=== PATIENT | female | born 1960 | race Caucasian/White ===

== ENCOUNTER 2017-06-15 06:21 | Day surgery (SDC) | payer OTHER ==
[2017-06-14 18:46] VITALS: BMI 20.2
[2017-06-15] MEDS ORDERED: MIDAZOLAM HCL 2 MG/2 ML SINGLE DOSE VIAL ONE ×2 (07:44)
[2017-06-15] MEDS ORDERED: LEVOFLOXACIN 500 MG PREMIX BAG IVPB ONE (07:50)
[2017-06-15] MEDS ORDERED: oxyCODONE HCL 5 MG TABLET PO PRN (08:17)
--- NOTE | 2017-06-15 08:17 | OP ---
Operative Note - Note: Operative Date: 06/15/17 Pre-Operative Diagnosis: rt kidney stone Operation: ESWL Post-Operative Diagnosis: Same as Pre-op Surgeon: Hemant Finnegan Anesthesia: General Estimated Blood Loss (mls): 0 Operative Report Dictated: Yes
[2017-06-15] MEDS ORDERED: ONDANSETRON 4 MG/2 ML VIAL IVPUSH PRN (08:22)
[2017-06-15] MEDS ORDERED: LACTATED RINGERS SOLUTION 1,000 ML IV SCH (08:30)
[2017-06-15] MEDS ORDERED: ELECTROLYTE-148 SOLN 1,000 ML IV SCH (08:30)
[2017-06-15 11:21] VITALS: BP 119/62; PULSE 96; TEMP 97.6
--- NOTE | 2017-06-15 16:49 | OP ---
DATE OF OPERATION: 06/15/2017 PREOPERATIVE DIAGNOSIS: A 1-cm right kidney stone. POSTOPERATIVE DIAGNOSIS: A 1-cm right kidney stone. PROCEDURE: Extracorporeal shock wave lithotripsy. SURGEON: Jim Rodarte MD INDICATION: Patient is a 56-year-old female noted to have a 1-cm right kidney stone, who after reviewing treatment options, elected to undergo ESWL. Risks, benefits, and alternatives were discussed including inability to break up stone, potential need for additional procedures, potential to obstruction requiring additional procedures, potential injury to adjacent organs. DESCRIPTION OF PROCEDURE: After informed consent was obtained, patient taken to the OR, placed supine on the table. After cardiac monitoring had been administered, ultrasound and fluoroscopy were used to locate the stone in the mid-pole of the kidney. Next, 2500 shocks were delivered under active ultrasound guidance so that the stone was in the crosshairs during the whole shocking period. There appeared to be fragmentation of the stone after the procedure. Patient was then awoken from anesthesia and then transferred to the recovery room in stable condition. There were no complications. There was no blood loss. JIM RODARTE M.D. [id number]
== END 2017-06-15 11:26 | disposition home or self-care (01) ==
LOC: JASU-SURG 06:21
PROVIDERS: ATTEND Urology
PROC: 0TF3XZZ Fragmentation in Right Kidney Pelvis, External Approach (ICD-10-PCS; principal; 2017-06-15 08:00)
DX: N20.0 Calculus of kidney (principal)
CPT/HCPCS: 94760

== ENCOUNTER 2018-04-11 10:22 | Day surgery (SDC) | payer OTHER ==
[2018-04-11 10:56] LABS: BASO % 0.3 % (0-2.0); EOS % 0.7 % (0-4.5); HEMATOCRIT 40.8 % (32.4-45.2); HEMOGLOBIN 13.6 GM/dL (10.7-15.3); LYMPH % 21.1 % (8-40); MCHC 33.4 g/dl (32.0-36.0); MEAN CELL VOLUME 86.7 fl (80-96); MEAN PLT VOLUME 9.1 fl (7.5-11.1); MONO % 7.1 % (3.8-10.2); NEUT % 70.8 % (42.8-82.8); PLATELET COUNT 311 K/MM3 (134-434); RBC 4.71 M/mm3 (3.60-5.2); RDW 14.6 % (11.6-15.6); WHITE BLOOD COUNT 8.5 K/mm3 (4.0-10.0)
[2018-04-11 11:12] LABS: INR 0.97 (0.82-1.09)
[2018-04-11 12:22] VITALS: BMI 20.9
[2018-04-11 15:07] VITALS: BP 99/67; PULSE 97; TEMP 97.5
== END 2018-04-11 15:00 | disposition home or self-care (01) ==
LOC: JRADIR 10:22
PROVIDERS: ATTEND Internal Medicine Hematology & Oncology
PROC: B518ZZA Fluoroscopy of Superior Vena Cava, Guidance (ICD-10-PCS; 2018-04-11)
PROC: 02HV33Z Insertion of Infusion Device into Superior Vena Cava, Percutaneous Approach (ICD-10-PCS; principal; 2018-04-11 12:00)
DX: C34.90 Malignant neoplasm of unspecified part of unspecified bronchus or lung (principal)
CPT/HCPCS: 36561; C1751; 36415; 76000-TC-FY; 76937-TC; 85025; 85610

== ENCOUNTER 2018-04-12 07:31 | Day surgery (SDC) | payer OTHER ==
[2018-04-12] MEDS ORDERED: MANNITOL IVPB ONE (08:00)
[2018-04-12] MEDS ORDERED: SODIUM CHLORIDE IVPB ONE ×3 (08:00→11:40)
[2018-04-12] MEDS ORDERED: FOSAPREPITANT DIMEGLUMINE 150 MG in SODIUM CHLORIDE 145 ML IVPB ONE (09:00)
[2018-04-12] MEDS ORDERED: CYANOCOBALAMIN (VITAMIN B-12) 1000 MCG/1 ML VIAL IM ONE (09:00)
[2018-04-12] MEDS ORDERED: PALONOSETRON HCL 0.25 MG/5 ML VIAL IVPUSH ONE (09:00)
[2018-04-12] MEDS ORDERED: DEXAMETHASONE INJECTION 12 MG in SODIUM CHLORIDE 50 ML IVPB ONE (09:00)
[2018-04-12 09:17] LABS: BASO % 0.3 % (0-2.0); EOS % 0.5 % (0-4.5); HEMATOCRIT 41.7 % (32.4-45.2); HEMOGLOBIN 13.6 GM/dL (10.7-15.3); LYMPH % 16.3 % (8-40); MCH 28.1 pg (25.7-33.7); MCHC 32.7 g/dl (32.0-36.0); MEAN CELL VOLUME 85.9 fl (80-96); MEAN PLT VOLUME 9.4 fl (7.5-11.1); MONO % 6.3 % (3.8-10.2); NEUT % 76.6 % (42.8-82.8); PLATELET COUNT 323 K/MM3 (134-434); RBC 4.85 M/mm3 (3.60-5.2); RDW 14.4 % (11.6-15.6); WHITE BLOOD COUNT 10.2 K/mm3 (4.0-10.0)
[2018-04-12] MEDS ORDERED: PEMETREXED DISODIUM IVPB ONE (09:30)
[2018-04-12] MEDS ORDERED: CISPLATIN IV ONE (09:40)
[2018-04-12] MEDS ORDERED: SODIUM CHLORIDE IV ONE (09:40)
[2018-04-12 09:43] LABS: ALBUMIN 3.6 g/dl (3.4-5.0); ALK PHOS 106 U/L (45-117); ANION GAP 10 (8-16); BILIRUBIN,DIRECT < 0.2 mg/dL (0.0-0.2); BILIRUBIN,TOTAL 0.4 mg/dL (0.2-1.0); BLOOD UREA NITROGEN 14 mg/dL (7-18); CHLORIDE 106 mmol/L (98-107); CO2 27 mmol/L (21-32); CREATININE 0.7 mg/dL (0.55-1.02); GLUCOSE,RANDOM 131 mg/dL (74-106); MAGNESIUM 2.2 mg/dL (1.8-2.4); POTASSIUM 3.5 mmol/L (3.5-5.1); SGOT/AST 10 U/L (15-37); SGPT/ALT 19 U/L (12-78); SODIUM 143 mmol/L (136-145); TOT PROT 6.8 g/dl (6.4-8.2)
[2018-04-12] MEDS ORDERED: PORTA CATH FLUSH 10 ML IVPUSH ONE ×2 (10:35→18:11)
[2018-04-12 10:36] VITALS: BP 128/69; PULSE 104; TEMP 98.3
[2018-04-12] MEDS ORDERED: SODIUM CHLORIDE 250 ML IV SCH (11:00)
[2018-04-12] MEDS ORDERED: ACETAMINOPHEN 325 MG TABLET (FP) PO ONE (11:08)
[2018-04-12] MEDS ORDERED: MAGNESIUM SULFATE IVPB ONE (11:40)
[2018-04-12] MEDS ORDERED: POTASSIUM CHLORIDE IVPB ONE (11:40)
[2018-04-12] MEDS: NYSTATIN 500,000 UNITS/5 ML SUSPENSION PO SCH ×2 (15:19→18:13)
== END 2018-04-12 18:45 | disposition home or self-care (01) ==
LOC: JCHEMO 07:31 → JONCCHEMO 07:31 → J7W 10:03 → JONCCHEMO 18:45
PROVIDERS: ATTEND Internal Medicine Hematology & Oncology
DX: Z51.11 Encounter for antineoplastic chemotherapy (principal); C34.32 Malignant neoplasm of lower lobe, left bronchus or lung; C79.51 Secondary malignant neoplasm of bone
CPT/HCPCS: 36415; 80053; 80076; 83735; 85025; 96361; 96367; 96372; 96375; 96411; 96413; 96415; 96417; J1100; J1453; J2469; J7030; J9305

== ENCOUNTER 2018-04-13 07:42 | Day surgery (SDC) | payer OTHER ==
[2018-04-13] MEDS ORDERED: PEGFILGRASTIM 6 MG/0.6 ML DISP.SYRIN SQ ONE (08:00)
[2018-04-13] MEDS ORDERED: SODIUM CHLORIDE 500 ML IV ONE (08:15)
[2018-04-13 16:29] VITALS: TEMP 98.1
[2018-04-13] MEDS ORDERED: PORTA CATH FLUSH 10 ML IVPUSH ONE (16:29)
[2018-04-13 16:34] VITALS: BP 118/57; PULSE 110
== END 2018-04-13 15:15 | disposition home or self-care (01) ==
LOC: JONCCHEMO 07:42
PROVIDERS: ATTEND Internal Medicine Hematology & Oncology
PROC: 3E013GC Introduction of Other Therapeutic Substance into Subcutaneous Tissue, Percutaneous Approach (ICD-10-PCS; principal; 2018-04-13)
PROC: 3E0437Z Introduction of Electrolytic and Water Balance Substance into Central Vein, Percutaneous Approach (ICD-10-PCS; 2018-04-13)
DX: C34.32 Malignant neoplasm of lower lobe, left bronchus or lung (principal); C79.51 Secondary malignant neoplasm of bone; Z76.89 Persons encountering health services in other specified circumstances
CPT/HCPCS: 96360; 96361; 96372; J2505

== ENCOUNTER 2018-04-20 08:17 | Day surgery (SDC) | payer OTHER ==
[2018-04-20] MEDS ORDERED: SODIUM CHLORIDE 500 ML IV ONE (09:00)
[2018-04-20 10:58] LABS: ALBUMIN 3.4 g/dl (3.4-5.0); ANION GAP 11 (8-16); BLOOD UREA NITROGEN 36 mg/dL (7-18); CALCIUM 8.3 mg/dL (8.5-10.1); CHLORIDE 95 mmol/L (98-107); CO2 29 mmol/L (21-32); GLUCOSE,RANDOM 129 mg/dL (74-106); SODIUM 135 mmol/L (136-145)
[2018-04-20 11:00] LABS: POTASSIUM 2.6 mmol/L (3.5-5.1)
[2018-04-20 11:03] LABS: ALK PHOS 180 U/L (45-117); BILIRUBIN,TOTAL 0.6 mg/dL (0.2-1.0); SGOT/AST 15 U/L (15-37); SGPT/ALT 21 U/L (12-78)
[2018-04-20] MEDS: POTASSIUM CHLORIDE 10 MEQ in SODIUM CHLORIDE 100 ML IVPB SCH ×3 (11:42→13:42)
[2018-04-20] MEDS ORDERED: POTASSIUM CHLORIDE TABS 20 MEQ TABLET.ER (FP) PO ONE (11:45)
[2018-04-20 12:34] LABS: MAGNESIUM 1.8 mg/dL (1.8-2.4)
[2018-04-20 13:44] VITALS: BP 114/65; PULSE 120; TEMP 97.5
[2018-04-20] MEDS ORDERED: MAGNESIUM 2GM/50ML STERILE WATER IVPB IVPB ONE (14:48)
[2018-04-20] MEDS ORDERED: MAGNESIUM SULF 50% (8.12 MEQ/2 ML-1 GM VIAL) ONE (14:55)
[2018-04-20] MEDS ORDERED: MAGNESIUM SULF 50% (8.12 MEQ/2 ML-1 GM VIAL) IVPB ONE (14:59)
--- NOTE | 2018-04-20 15:34 | PN ---
Progress Note (short form) - Note Progress Note: k of 2.6 three runs of K Kdur 2g iv mag repeat chem. pt will return on 04/21 for ivf , blood work d/w RN
== END 2018-04-20 16:40 | disposition home or self-care (01) ==
LOC: JONCNONCHE 08:17 → J7W 08:38 → JONCNONCHE 16:40
PROVIDERS: ATTEND Internal Medicine Hematology & Oncology
PROC: 3E033GC Introduction of Other Therapeutic Substance into Peripheral Vein, Percutaneous Approach (ICD-10-PCS; principal; 2018-04-20)
PROC: 3E0437Z Introduction of Electrolytic and Water Balance Substance into Central Vein, Percutaneous Approach (ICD-10-PCS; 2018-04-20)
DX: C34.32 Malignant neoplasm of lower lobe, left bronchus or lung (principal); E86.0 Dehydration; Z76.89 Persons encountering health services in other specified circumstances
CPT/HCPCS: 36415; 80053; 83735; 96360; 96361; 96374

== ENCOUNTER 2018-04-21 06:58 | Day surgery (SDC) | payer OTHER ==
[2018-04-21] MEDS ORDERED: SODIUM CHLORIDE 500 ML IV ONE (09:00)
[2018-04-21 09:42] VITALS: TEMP 98.1
[2018-04-21] MEDS ORDERED: PORTA CATH FLUSH 10 ML IVPUSH ONE (09:43)
[2018-04-21 10:08] LABS: HEMATOCRIT 36.5 % (32.4-45.2); HEMOGLOBIN 12.5 GM/dL (10.7-15.3); MCH 29.1 pg (25.7-33.7); MCHC 34.3 g/dl (32.0-36.0); MEAN CELL VOLUME 84.7 fl (80-96); MEAN PLT VOLUME 10.5 fl (7.5-11.1); PLATELET COUNT 106 K/MM3 (134-434); RBC 4.31 M/mm3 (3.60-5.2); RDW 13.4 % (11.6-15.6); WHITE BLOOD COUNT 10.1 K/mm3 (4.0-10.0)
[2018-04-21] MEDS ORDERED: POTASSIUM CHLORIDE TABS 20 MEQ TABLET.ER (FP) PO ONE (10:15)
[2018-04-21 10:43] LABS: ALBUMIN 3.1 g/dl (3.4-5.0); ANION GAP 8 (8-16); BILIRUBIN,TOTAL 0.4 mg/dL (0.2-1.0); BLOOD UREA NITROGEN 25 mg/dL (7-18); CALCIUM 7.8 mg/dL (8.5-10.1); CHLORIDE 102 mmol/L (98-107); CO2 28 mmol/L (21-32); CREATININE 0.9 mg/dL (0.55-1.02); GLUCOSE,RANDOM 94 mg/dL (74-106); POTASSIUM 3.1 mmol/L (3.5-5.1); SGOT/AST 17 U/L (15-37); SGPT/ALT 23 U/L (12-78); SODIUM 138 mmol/L (136-145); TOT PROT 5.6 g/dl (6.4-8.2)
[2018-04-21 10:44] LABS: ALK PHOS 150 U/L (45-117)
[2018-04-21] MEDS ORDERED: POTASSIUM CHLORIDE 20 MEQ PREMIX IVPB 100 ML IVPB SCH (11:30)
[2018-04-21] MEDS: POTASSIUM CHLORIDE 10 MEQ in SODIUM CHLORIDE 100 ML IVPB SCH ×2 (12:30→13:30)
[2018-04-21 15:34] VITALS: BP 115/68; PULSE 90
== END 2018-04-21 14:45 | disposition home or self-care (01) ==
LOC: JONCNONCHE 06:58 → J7W 09:54 → JONCNONCHE 14:45
PROVIDERS: ATTEND Internal Medicine Hematology & Oncology
PROC: 3E033GC Introduction of Other Therapeutic Substance into Peripheral Vein, Percutaneous Approach (ICD-10-PCS; principal; 2018-04-21)
PROC: 3E0337Z Introduction of Electrolytic and Water Balance Substance into Peripheral Vein, Percutaneous Approach (ICD-10-PCS; 2018-04-21)
DX: C34.32 Malignant neoplasm of lower lobe, left bronchus or lung (principal); Z76.89 Persons encountering health services in other specified circumstances; E86.0 Dehydration
CPT/HCPCS: 36415; 80053; 85027; 96360; 96361; 96365; 96366

== ENCOUNTER 2018-05-03 07:43 | Day surgery (SDC) | payer OTHER ==
[2018-05-03] MEDS ORDERED: SODIUM CHLORIDE 500 ML IV ONE ×2 (08:00→09:40)
[2018-05-03] MEDS ORDERED: PALONOSETRON HCL 0.25 MG/5 ML VIAL IVPUSH ONE (08:30)
[2018-05-03] MEDS ORDERED: CYANOCOBALAMIN (VITAMIN B-12) 1000 MCG/1 ML VIAL IM ONE ×2 (08:30→11:40)
[2018-05-03] MEDS ORDERED: DEXAMETHASONE INJECTION 12 MG in SODIUM CHLORIDE 50 ML IVPB ONE (08:30)
[2018-05-03] MEDS ORDERED: FOSAPREPITANT DIMEGLUMINE 150 MG in SODIUM CHLORIDE 145 ML IVPB ONE (08:30)
[2018-05-03] MEDS ORDERED: CARBOPLATIN IVPB ONE (09:00)
[2018-05-03] MEDS ORDERED: SODIUM CHLORIDE IVPB ONE ×2 (09:00→09:30)
[2018-05-03] MEDS ORDERED: PEMETREXED DISODIUM IVPB ONE (09:30)
[2018-05-03 09:36] LABS: BASO % 0.6 % (0-2.0); EOS % 0.6 % (0-4.5); HEMATOCRIT 36.7 % (32.4-45.2); HEMOGLOBIN 12.1 GM/dL (10.7-15.3); LYMPH % 16.9 % (8-40); MCHC 32.9 g/dl (32.0-36.0); MEAN CELL VOLUME 85.2 fl (80-96); MONO % 6.4 % (3.8-10.2); NEUT % 75.5 % (42.8-82.8); PLATELET COUNT 377 K/MM3 (134-434); RBC 4.31 M/mm3 (3.60-5.2); RDW 14.3 % (11.6-15.6); WHITE BLOOD COUNT 11.1 K/mm3 (4.0-10.0)
[2018-05-03 10:07] LABS: ALBUMIN 3.4 g/dl (3.4-5.0); ANION GAP 6 (8-16); BILIRUBIN,TOTAL 0.2 mg/dL (0.2-1.0); BLOOD UREA NITROGEN 22 mg/dL (7-18); CALCIUM 8.8 mg/dL (8.5-10.1); CHLORIDE 104 mmol/L (98-107); CO2 28 mmol/L (21-32); CREATININE 0.7 mg/dL (0.55-1.02); GLUCOSE,RANDOM 116 mg/dL (74-106); POTASSIUM 3.8 mmol/L (3.5-5.1); SGOT/AST 20 U/L (15-37); SGPT/ALT 33 U/L (12-78); SODIUM 138 mmol/L (136-145)
[2018-05-03 10:29] LABS: ALK PHOS 118 U/L (45-117); TOT PROT 6.4 g/dl (6.4-8.2)
[2018-05-03 10:51] VITALS: PULSE 112; TEMP 98.5
[2018-05-03] MEDS ORDERED: PORTA CATH FLUSH 10 ML IVPUSH ONE ×2 (10:57→15:32)
[2018-05-03 13:26] LABS: BILIRUBIN,DIRECT < 0.2 mg/dL (0.0-0.2); MAGNESIUM 1.9 mg/dL (1.8-2.4)
[2018-05-03 16:45] VITALS: BP 138/83
[2018-05-04] MEDS ORDERED: PEGFILGRASTIM 6 MG/0.6 ML DISP.SYRIN SQ ONE (08:00)
== END 2018-05-03 16:50 | disposition home or self-care (01) ==
LOC: JONCCHEMO 07:43 → J7W 10:45 → JONCCHEMO 16:50
PROVIDERS: ATTEND Internal Medicine Hematology & Oncology
DX: Z51.11 Encounter for antineoplastic chemotherapy (principal); C34.32 Malignant neoplasm of lower lobe, left bronchus or lung
CPT/HCPCS: 36415; 80053; 80076; 83735; 85025; 96361; 96367; 96372; 96375; 96411; 96413; 96417; J1100; J1453; J2469; J9305

== ENCOUNTER 2018-05-04 07:51 | Day surgery (SDC) | payer OTHER ==
[2018-05-04] MEDS ORDERED: PEGFILGRASTIM 6 MG/0.6 ML DISP.SYRIN SQ ONE (14:00)
[2018-05-04 18:33] VITALS: BP 122/69; PULSE 123; TEMP 97.9
== END 2018-05-04 14:05 | disposition home or self-care (01) ==
LOC: JONCCHEMO 07:51 → J7W 13:40 → JONCCHEMO 14:05
PROVIDERS: ATTEND Internal Medicine Hematology & Oncology
PROC: 3E013GC Introduction of Other Therapeutic Substance into Subcutaneous Tissue, Percutaneous Approach (ICD-10-PCS; principal; 2018-05-04)
DX: C34.32 Malignant neoplasm of lower lobe, left bronchus or lung (principal); Z76.89 Persons encountering health services in other specified circumstances
CPT/HCPCS: 96372; J2505

== ENCOUNTER 2018-05-12 09:37 | Day surgery (SDC) | payer OTHER ==
[2018-05-12] MEDS ORDERED: SODIUM CHLORIDE 500 ML IV ONE (10:00)
[2018-05-12] MEDS ORDERED: SODIUM CHLORIDE 1,000 ML IV SCH (15:30)
[2018-05-12 16:24] LABS: HEMOGLOBIN 10.6 GM/dL (10.7-15.3); MCH 28.2 pg (25.7-33.7); MCHC 33.2 g/dl (32.0-36.0); MEAN CELL VOLUME 84.8 fl (80-96); MEAN PLT VOLUME 9.9 fl (7.5-11.1); PLATELET COUNT 142 K/MM3 (134-434); RBC 3.78 M/mm3 (3.60-5.2); RDW 14.5 % (11.6-15.6); WHITE BLOOD COUNT 19.5 K/mm3 (4.0-10.0)
[2018-05-12 17:06] LABS: ALBUMIN 3.3 g/dl (3.4-5.0); ALK PHOS 184 U/L (45-117); ANION GAP 8 (8-16); BILIRUBIN,TOTAL 0.2 mg/dL (0.2-1.0); BLOOD UREA NITROGEN 15 mg/dL (7-18); CALCIUM 8.5 mg/dL (8.5-10.1); CHLORIDE 99 mmol/L (98-107); CO2 30 mmol/L (21-32); CREATININE 0.5 mg/dL (0.55-1.02); GLUCOSE,RANDOM 82 mg/dL (74-106); MAGNESIUM 1.7 mg/dL (1.8-2.4); POTASSIUM 3.3 mmol/L (3.5-5.1); SGOT/AST 49 U/L (15-37); SGPT/ALT 107 U/L (12-78); SODIUM 137 mmol/L (136-145)
[2018-05-12 18:16] VITALS: TEMP 98.4
[2018-05-12 18:20] VITALS: BP 126/84; PULSE 110
[2018-05-12] MEDS ORDERED: PORTA CATH FLUSH 10 ML IVPUSH ONE (18:20)
--- NOTE | 2018-05-13 19:32 | PN ---
Progress Note (short form) - Note Progress Note: Called patient and asked her to KCL to 20meq now and then daily and magnesium oxide to 800mg now and then daily She had recently resumed lipitor LFTs elevated to 1.5 x normal ---hence asked to stop lipitor Patient to follow up next week
== END 2018-05-12 16:55 | disposition home or self-care (01) ==
LOC: JONCNONCHE 09:37 → J7W 14:46 → JONCNONCHE 16:55
PROVIDERS: ATTEND Internal Medicine Hematology & Oncology
PROC: 3E0337Z Introduction of Electrolytic and Water Balance Substance into Peripheral Vein, Percutaneous Approach (ICD-10-PCS; principal; 2018-05-12)
DX: C34.32 Malignant neoplasm of lower lobe, left bronchus or lung (principal); Z76.89 Persons encountering health services in other specified circumstances
CPT/HCPCS: 36415; 80053; 83735; 85027; 96360; 96361; J7030

== ENCOUNTER 2018-05-24 07:34 | Day surgery (SDC) | payer OTHER ==
[2018-05-24] MEDS ORDERED: SODIUM CHLORIDE 500 ML IV ONE ×2 (09:00→11:10)
[2018-05-24 09:48] LABS: BASO % 0.5 % (0-2.0); EOS % 0.8 % (0-4.5); HEMATOCRIT 33.3 % (32.4-45.2); HEMOGLOBIN 11.1 GM/dL (10.7-15.3); LYMPH % 16.2 % (8-40); MCH 28.5 pg (25.7-33.7); MCHC 33.3 g/dl (32.0-36.0); MEAN CELL VOLUME 85.6 fl (80-96); MEAN PLT VOLUME 8.6 fl (7.5-11.1); MONO % 7.9 % (3.8-10.2); NEUT % 74.6 % (42.8-82.8); PLATELET COUNT 447 K/MM3 (134-434); RBC 3.89 M/mm3 (3.60-5.2); RDW 15.8 % (11.6-15.6); WHITE BLOOD COUNT 8.7 K/mm3 (4.0-10.0)
[2018-05-24] MEDS ORDERED: PALONOSETRON HCL 0.25 MG/5 ML VIAL IVPUSH ONE (10:00)
[2018-05-24] MEDS ORDERED: DEXAMETHASONE INJECTION 12 MG in SODIUM CHLORIDE 50 ML IVPB ONE (10:00)
[2018-05-24] MEDS ORDERED: FOSAPREPITANT DIMEGLUMINE 150 MG in SODIUM CHLORIDE 150 ML IVPB ONE (10:00)
[2018-05-24] MEDS ORDERED: CYANOCOBALAMIN (VITAMIN B-12) 1000 MCG/1 ML VIAL IM ONE (10:00)
[2018-05-24] MEDS ORDERED: SODIUM CHLORIDE IVPB ONE ×2 (10:30→12:00)
[2018-05-24] MEDS ORDERED: CARBOPLATIN IVPB ONE ×2 (10:30→12:00)
[2018-05-24 10:33] LABS: ALBUMIN 3.4 g/dl (3.4-5.0); ANION GAP 7 (8-16); BILIRUBIN,DIRECT < 0.2 mg/dL (0.0-0.2); BLOOD UREA NITROGEN 15 mg/dL (7-18); CALCIUM 8.7 mg/dL (8.5-10.1); CHLORIDE 107 mmol/L (98-107); CO2 29 mmol/L (21-32); GLUCOSE,RANDOM 97 mg/dL (74-106); POTASSIUM 4.1 mmol/L (3.5-5.1); SGPT/ALT 64 U/L (12-78); SODIUM 143 mmol/L (136-145)
[2018-05-24 10:36] LABS: ALK PHOS 141 U/L (45-117); BILIRUBIN,TOTAL 0.3 mg/dL (0.2-1.0); CREATININE 0.6 mg/dL (0.55-1.02); SGOT/AST 29 U/L (15-37); TOT PROT 6.4 g/dl (6.4-8.2)
[2018-05-24] MEDS ORDERED: SODIUM CHLORIDE IV ONE ×2 (11:00→11:08)
[2018-05-24] MEDS ORDERED: PEMETREXED DISODIUM IV ONE ×2 (11:00→11:08)
[2018-05-24 16:50] VITALS: TEMP 97.8
[2018-05-24] MEDS ORDERED: PORTA CATH FLUSH 10 ML IVPUSH ONE (16:50)
[2018-05-24 16:52] VITALS: BP 111/68; PULSE 104
== END 2018-05-24 16:00 | disposition home or self-care (01) ==
LOC: JONCCHEMO 07:34 → J7W 10:03 → JONCCHEMO 16:00
PROVIDERS: ATTEND Internal Medicine Hematology & Oncology
DX: Z51.11 Encounter for antineoplastic chemotherapy (principal); C34.32 Malignant neoplasm of lower lobe, left bronchus or lung
CPT/HCPCS: 36415; 80053; 80076; 83735; 85025; 96361; 96367; 96372; 96375; 96413; 96417; J1100; J1453; J2469; J9305

== ENCOUNTER 2018-05-25 07:34 | Day surgery (SDC) | payer OTHER ==
[2018-05-25] MEDS ORDERED: PEGFILGRASTIM 6 MG/0.6 ML DISP.SYRIN SQ ONE (10:00)
[2018-05-25 14:49] VITALS: BP 116/69; PULSE 103; TEMP 98.3
== END 2018-05-25 13:45 | disposition home or self-care (01) ==
LOC: JONCCHEMO 07:34 → J7W 13:17 → JONCCHEMO 13:45
PROVIDERS: ATTEND Internal Medicine Hematology & Oncology
PROC: 3E013GC Introduction of Other Therapeutic Substance into Subcutaneous Tissue, Percutaneous Approach (ICD-10-PCS; principal; 2018-05-25)
DX: C34.32 Malignant neoplasm of lower lobe, left bronchus or lung (principal); Z76.89 Persons encountering health services in other specified circumstances
CPT/HCPCS: 96372; J2505

== ENCOUNTER 2018-06-14 07:30 | Day surgery (SDC) | payer OTHER ==
[2018-06-14] MEDS ORDERED: SODIUM CHLORIDE 500 ML IV ONE ×2 (08:00→09:41)
[2018-06-14] MEDS ORDERED: CYANOCOBALAMIN (VITAMIN B-12) 1000 MCG/1 ML VIAL IM ONE (08:30)
[2018-06-14] MEDS ORDERED: PALONOSETRON HCL 0.25 MG/5 ML VIAL IVPUSH ONE (08:30)
[2018-06-14] MEDS ORDERED: DEXAMETHASONE INJECTION 12 MG in SODIUM CHLORIDE 50 ML IVPB ONE (08:30)
[2018-06-14] MEDS ORDERED: FOSAPREPITANT DIMEGLUMINE 150 MG in SODIUM CHLORIDE 145 ML IVPB ONE (08:30)
[2018-06-14] MEDS ORDERED: PEMETREXED DISODIUM IVPB ONE ×2 (09:00)
[2018-06-14] MEDS ORDERED: SODIUM CHLORIDE IVPB ONE ×3 (09:00→09:11)
[2018-06-14] MEDS ORDERED: CARBOPLATIN IVPB ONE (09:11)
[2018-06-14 09:39] LABS: BASO % 0.6 % (0-2.0); EOS % 0.6 % (0-4.5); HEMATOCRIT 34.5 % (32.4-45.2); HEMOGLOBIN 11.5 GM/dL (10.7-15.3); MCH 29.4 pg (25.7-33.7); MCHC 33.3 g/dl (32.0-36.0); MEAN CELL VOLUME 88.3 fl (80-96); MEAN PLT VOLUME 8.8 fl (7.5-11.1); MONO % 7.3 % (3.8-10.2); NEUT % 76.5 % (42.8-82.8); PLATELET COUNT 354 K/MM3 (134-434); RBC 3.91 M/mm3 (3.60-5.2); RDW 18.3 % (11.6-15.6); WHITE BLOOD COUNT 8.2 K/mm3 (4.0-10.0)
[2018-06-14 10:01] LABS: ALBUMIN 3.6 g/dl (3.4-5.0); BILIRUBIN,DIRECT < 0.2 mg/dL (0.0-0.2); BILIRUBIN,TOTAL 0.3 mg/dL (0.2-1.0); MAGNESIUM 2.1 mg/dL (1.8-2.4); SGOT/AST 32 U/L (15-37); SGPT/ALT 56 U/L (12-78)
[2018-06-14 10:03] LABS: ALK PHOS 135 U/L (45-117); TOT PROT 6.5 g/dl (6.4-8.2)
[2018-06-14 10:07] LABS: ALBUMIN 3.6 g/dl (3.4-5.0); ALK PHOS 137 U/L (45-117); ANION GAP 8 (8-16); BILIRUBIN,TOTAL 0.3 mg/dL (0.2-1.0); BLOOD UREA NITROGEN 16 mg/dL (7-18); CHLORIDE 107 mmol/L (98-107); CO2 28 mmol/L (21-32); CREATININE 0.6 mg/dL (0.55-1.02); GLUCOSE,RANDOM 97 mg/dL (74-106); POTASSIUM 4.2 mmol/L (3.5-5.1); SGOT/AST 31 U/L (15-37); SGPT/ALT 58 U/L (12-78); SODIUM 143 mmol/L (136-145); TOT PROT 6.5 g/dl (6.4-8.2)
[2018-06-14] MEDS ORDERED: PORTA CATH FLUSH 10 ML IVPUSH ONE (13:47)
[2018-06-14 13:48] VITALS: TEMP 97.5
[2018-06-14 16:34] VITALS: BP 104/67; PULSE 90
== END 2018-06-14 16:35 | disposition home or self-care (01) ==
LOC: JONCCHEMO 07:30 → J7W 11:10 → JONCCHEMO 16:35
PROVIDERS: ATTEND Internal Medicine Hematology & Oncology
DX: Z51.11 Encounter for antineoplastic chemotherapy (principal); C34.32 Malignant neoplasm of lower lobe, left bronchus or lung
CPT/HCPCS: 36415; 80053; 80076; 83735; 85025; 96361; 96367; 96375; 96411; 96413; 96417; J1100; J1453; J2469; J9305

== ENCOUNTER 2018-06-15 07:43 | Day surgery (SDC) | payer OTHER ==
[2018-06-15] MEDS ORDERED: PEGFILGRASTIM 6 MG/0.6 ML DISP.SYRIN SQ ONE (08:00)
[2018-06-15] MEDS ORDERED: SODIUM CHLORIDE 500 ML IV ONE (10:00)
[2018-06-15 14:34] VITALS: TEMP 97.6
[2018-06-15 14:39] VITALS: BP 119/71; PULSE 102
[2018-06-15] MEDS ORDERED: PORTA CATH FLUSH 10 ML IVPUSH ONE (14:39)
== END 2018-06-15 13:50 | disposition home or self-care (01) ==
LOC: JONCCHEMO 07:43 → J7W 11:10 → JONCCHEMO 13:50
PROVIDERS: ATTEND Internal Medicine Hematology & Oncology
PROC: 3E013GC Introduction of Other Therapeutic Substance into Subcutaneous Tissue, Percutaneous Approach (ICD-10-PCS; principal; 2018-06-15)
PROC: 3E0437Z Introduction of Electrolytic and Water Balance Substance into Central Vein, Percutaneous Approach (ICD-10-PCS; 2018-06-15)
DX: C34.32 Malignant neoplasm of lower lobe, left bronchus or lung (principal); Z76.89 Persons encountering health services in other specified circumstances
CPT/HCPCS: 96360; 96361; 96372; J2505

== ENCOUNTER → 2018-07-29 | Day surgery (SDC) | payer OTHER | END | disposition home or self-care (01) | LOC: JRADIR 10:42 | PROVIDERS: ATTEND Internal Medicine Hematology & Oncology | PROC: 0JPT0XZ Removal of Tunneled Vascular Access Device from Trunk Subcutaneous Tissue and Fascia, Open Approach (ICD-10-PCS; principal; 2018-07-29) | PROC: 02PY03Z Removal of Infusion Device from Great Vessel, Open Approach (ICD-10-PCS; 2018-07-29) | DX: Z45.2 Encounter for adjustment and management of vascular access device (principal) | CPT/HCPCS: 36590; 77001-TC-FY ==

== ENCOUNTER 2020-05-24 05:26 | Day surgery (SDC) | payer OTHER ==
[2020-05-23 12:57] VITALS: BMI 20.2
[2020-05-24 13:54] VITALS: BP 130/72; PULSE 90; TEMP 98.6
[2020-05-24 16:02] LABS: BF WBC & OTHER NUCLEATED CELLS 360 /mm3
[2020-05-25 14:07] LABS: BODY FLUID ALBUMIN 3.7 g/dL (Not Estab.)
[2020-05-25 14:35] LABS: BODY FLUID MACROPHAGES 65 %
--- NOTE | 2020-05-28 15:00 | PATH ---
Cytology Non-Gynecological Report Patient Name: LATOYA BO [facility]. Rec. #: [id number] /Age/Gender: 1960 (Age: 59) / F Account: [id number] Location: RADIOLOGY INTER Taken: 05/24/2020 Received: 05/24/2020 Reported: 05/28/2020 Physicians: Selin Guallpa M.D. Specimen(s) Received A: PLEURAL FLUID IN ALCOHOL B: PLEURAL FLUID FRESH Clinical History Pleural effusion Final Diagnosis A AND B: PLEURAL FLUID, THORACENTESIS: SATISFACTORY FOR EVALUATION. POSITIVE FOR MALIGNANT CELLS. ADENOCARCINOMA, CONSISTENT WITH LUNG PRIMARY. Comment: Cytology slide shows mostly singled highly atypical malignant cells. Immunohistochemical stained slides from cell block B1 demonstrate tumor cells to be positive for CK7, TTF-1, Napsin A, while negative for CK20, CDH17, synaptophysin, chromogranin A, P63, D2-40, and Calretinin. CD68 highlights the macrophages in the background, while negative for the tumor cells. The morphology and immunophenotype support a diagnosis of adenocarcinoma of lung primary. Patient's prior history of lung adenocarcinoma is noted. Immunohistochemistry stains CDH17, Napsin A, D2-40, Calretinin and CD68 [facility] [place] ([id number]) interpreted at [facility]. Immunohistochemistry stains synaptophysin, chromogranin A, P63, CK7, CK20, and TTF-1performed and interpreted at [facility]. Positive and negative controls (internal if applicable) show appropriate results. Intradepartmental case reviewed with concordance on diagnosis. This case was discussed with Dr. Guallpa on 05/28/2020. Electronically Signed Roberth Gómez M.D. Addendum Reported: 07/05/2020 Addendum Diagnosis OMN[employer] [facility] [place] [place]([id number]) shows the following: RESULTS: Quantity not sufficient for RNA-SEQ targeted therapy fusion analysis. Quantity not sufficient for RNA-SEQ immune profiling analysis. Report faxed on 07/04/[address] Guallpa. See [facility] report for additional details. Kiyoe Gómez, M.D. Gross Description A. 50 cc cloudy yellow fluid received in 50% alcohol. One cytospin and one cell block prepared. B.1500 cc polly colored fluid received fresh. One cytospin and one cellblock prepared.
== END 2020-05-24 13:45 | disposition home or self-care (01) ==
LOC: JRADIR 05:26
PROVIDERS: ATTEND Internal Medicine Hematology & Oncology
PROC: 0W9B3ZZ Drainage of Left Pleural Cavity, Percutaneous Approach (ICD-10-PCS; principal; 2020-05-24)
PROC: BB4BZZZ Ultrasonography of Pleura (ICD-10-PCS; 2020-05-24)
DX: C34.32 Malignant neoplasm of lower lobe, left bronchus or lung (principal); J91.0 Malignant pleural effusion
CPT/HCPCS: 36415; 71045-TC-FY; 76942; 82042; 82150; 82465; 82945; 83615; 83986; 84157; 84478; 87070; 87075; 87102; 87116; 87205; 87206; 87210; 88108; 88305-TC; 88341-TC; 88342-TC

== ENCOUNTER 2020-06-06 14:50 | Inpatient (IN) | payer OTHER ==
[2020-06-06 15:16] VITALS: BMI 22.9
--- NOTE | 2020-06-06 15:34 | PN ---
Progress Note (short form) - Note Progress Note: Thoracic Surgery: Called re: loculated malignant effusion. Plan is for pleurx tomorrow in IR by Dr. Lal.
--- NOTE | 2020-06-06 16:19 | EKG ---
Test Reason : Blood Pressure : / mmHG Vent. Rate : 115 BPM Atrial Rate : 115 BPM P-R Int : 128 ms QRS Dur : 070 ms QT Int : 316 ms P-R-T Axes : 063 041 020 degrees QTc Int : 437 ms SINUS TACHYCARDIA OTHERWISE NORMAL ECG WHEN COMPARED WITH ECG OF 03-MAR-2018 10:02, BORDERLINE CRITERIA FOR ANTEROSEPTAL INFARCT ARE NO LONGER PRESENT NONSPECIFIC T WAVE ABNORMALITY, IMPROVED IN INFERIOR LEADS Confirmed by CHRISTINE CACERES, CAROLYN ([id number]) on 06/06/2020 4:19:20 PM Referred By: Confirmed By:CAROLYN KING MD
[2020-06-06 16:32] LABS: BASO % 0.3 % (0-2.0); EOS % 0.4 % (0-4.5); HEMATOCRIT 42.2 % (32.4-45.2); HEMOGLOBIN 13.9 GM/dL (10.7-15.3); LYMPH % 8.9 % (8-40); MCH 28.2 pg (25.7-33.7); MCHC 32.9 g/dl (32.0-36.0); MEAN CELL VOLUME 85.7 fl (80-96); MEAN PLT VOLUME 10.1 fl (7.5-11.1); MONO % 7.3 % (3.8-10.2); NEUT % 83.1 % (42.8-82.8); PLATELET COUNT 322 K/MM3 (134-434); RBC 4.92 M/mm3 (3.60-5.2); RDW 14.1 % (11.6-15.6); WHITE BLOOD COUNT 9.7 K/mm3 (4.0-10.0)
[2020-06-06 16:42] LABS: INR 1.08 (0.83-1.09); PROTHROMBIN TIME (PATIENT) 12.7 SEC (9.7-13.0)
[2020-06-06 16:45] LABS: ACTIVATED PTT 25.3 SECONDS (25.2-36.5)
[2020-06-06 17:17] LABS: ALBUMIN 3.2 g/dl (3.4-5.0); ALK PHOS 108 U/L (45-117); ANION GAP 7 MMOL/L (8-16); BILIRUBIN,TOTAL 0.3 mg/dL (0.2-1); BLOOD UREA NITROGEN 16.6 mg/dL (7-18); CALCIUM 9.1 mg/dL (8.5-10.1); CHLORIDE 103 mmol/L (98-107); CO2 29 mmol/L (21-32); CREATININE 0.6 mg/dL (0.55-1.3); GLUCOSE,RANDOM 143 mg/dL (74-106); POTASSIUM 3.5 mmol/L (3.5-5.1); SGOT/AST 19 U/L (15-37); SGPT/ALT 16 U/L (13-61); SODIUM 139 mmol/L (136-145); TOT PROT 6.1 g/dl (6.4-8.2)
--- NOTE | 2020-06-06 18:46 | PDOC ---
History of Present Illness - General Chief Complaint: Shortness of Breath Stated Complaint: PNEUMOTHORAX Time Seen by Provider: 06/06/20 14:54 - History of Present Illness Initial Comments: 06/06/20 18:46 HPI: 59 y/o F with hx of HLD and lung adenocarcinoma s/p left lower lobectomy BIBEMS from Dr Santiago's office for CT findings of pnx. Patient developed cough few weeks ago and had CT which showed left hemithorax massive effusion and received throacentesis by Dr Carreon last week and followup CT showed hydropneumothorax. Patient is symptomatic and denies chest pain, fever, chills, SOB. She still has a cough. PMHx: as noted above ROS: as noted SHx: Denies tobacco use; no alcohol use; no rec drugs Allergies: NKDA ROS: GENERAL/CONSTITUTIONAL: No fever or chills. No weakness. HEAD, EYES, EARS, NOSE AND THROAT: No change in vision. No ear pain or discharge. No sore throat. CARDIOVASCULAR: No chest pain or shortness of breath RESPIRATORY: +cough; no wheezing, or hemoptysis. GASTROINTESTINAL: No nausea, vomiting, diarrhea or constipation. GENITOURINARY: No dysuria, frequency, or change in urination. MUSCULOSKELETAL: No joint or muscle swelling or pain. No neck or back pain. SKIN: No rash NEUROLOGIC: No headache, vertigo, loss of consciousness, or change in strength/sensation. ENDOCRINE: No increased thirst. No abnormal weight change HEMATOLOGIC/LYMPHATIC: No anemia, easy bleeding, or history of blood clots. ALLERGIC/IMMUNOLOGIC: No hives or skin allergy. PE: GENERAL: Awake, alert, and fully oriented, no acute distress HEAD: No signs of trauma, normocephalic, atraumatic EYES: EOMI, sclera anicteric, conjunctiva clear ENT: Auricles normal inspection, hearing grossly normal, nares patent, oropharynx clear without exudates. Moist mucosa NECK: Normal ROM, no lymphadenopathy LUNGS: No increased work of breathing, symmetrical chest rise, right lung clear, left lung diminished breath sounds HEART: tachycardia, regular rhythm ABDOMEN: Soft, nondistended, nontender. No guarding, no rebound. No masses. No CVAT MUSCULOSKELETAL: FROM NEUROLOGICAL: Cranial nerves II through XII grossly intact. Normal speech, stable gait, no focal sensorimotor deficits SKIN: Warm, Dry, normal turgor, no rashes or lesions noted Past History - Medical History Allergies/Adverse Reactions: Allergies Allergy/AdvReac Type Severity Reaction Status Date / Time No Known Allergies Allergy Unverified 06/06/20 15:16 Home Medications: Ambulatory Orders Atorvastatin Ca [Lipitor] 10 mg PO HS tablet 04/09/14 Cholecalciferol (Vitamin D3) [Vitamin D3 -] 1,000 units PO DAILY 06/14/17 Aspirin 81 mg PO DAILY 02/21/18 Vitamin E - 400 unit PO DAILY 02/21/18 Acetaminophen [Tylenol .Regular Strength -] 650 mg PO Q6H PRN tablet 03/04/18 Metoprolol Succinate [Toprol XL -] 12.5 mg PO DAILY #30 tab.sr.24h 03/04/18 Ascorbic Acid [Vitamin C] 500 mg PO DAILY 05/23/20 Potassium Chloride 20 meq PO DAILY 05/23/20 Anemia: No Asthma: No Cancer: Yes (left lung ca with thoracotomy 12/2017) Cardiac Disorders: No CVA: No COPD: No CHF: No Dementia: No Diabetes: No GI Disorders: No Disorders: Yes (kidney stones) HTN: No Hypercholesterolemia: Yes Liver Disease: No Seizures: No Thyroid Disease: No - Surgical History Abdominal Surgery: No Appendectomy: No Cardiac Surgery: No Cholecystectomy: No Lung Surgery: No Neurologic Surgery: No Orthopedic Surgery: No - Psycho-Social/Smoking History Smoking History: Never smoked Have you smoked in the past 12 months: No Information on smoking cessation initiated: No - Substance Abuse Hx (Audit-C & DAST Scrn) How often the patient has a drink containing alcohol: Never Score: In Men: 4 or > Positive; In Women: 3 or > Positive: 0 Screen Result (Pos requires Nsg. Audit-10AR): Negative In the last yr the pt used illegal drug/Rx for NonMed reason: No Score: Yes response is considered Positive: 0 Screen Result (Positive result requires Nsg. DAST-10): Negative *Physical Exam - Vital Signs Last Vital Signs Temp Pulse Resp BP Pulse Ox 117 H 16 127/76 98 06/06/20 14:50 06/06/20 14:50 06/06/20 14:50 06/06/20 15:35 ED Treatment Course - LABORATORY CBC & Chemistry Diagram: 06/06/20 15:50 06/06/20 15:50 - ADDITIONAL ORDERS Additional order review: Laboratory Results 06/06/20 06/06/20 06/06/20 15:50 15:50 15:50 PT with INR 12.70 INR 1.08 PTT (Actin FS) 25.3 Sodium 139 Potassium 3.5 Chloride 103 Carbon Dioxide 29 Anion Gap 7 L BUN 16.6 Creatinine 0.6 Est GFR (CKD-EPI)AfAm 114.82 Est GFR (CKD-EPI)NonAf 99.07 Random Glucose 143 H Calcium 9.1 Total Bilirubin 0.3 AST 19 ALT 16 Alkaline Phosphatase 108 Creatine Kinase 46 Troponin I < 0.02 Total Protein 6.1 L Albumin 3.2 L Blood Type A POSITIVE Antibody Screen Negative 06/06/20 15:50 RBC 4.92 MCV 85.7 MCHC 32.9 RDW 14.1 MPV 10.1 Neutrophils % 83.1 H Lymphocytes % 8.9 Monocytes % 7.3 Eosinophils % 0.4 D Basophils % 0.3 - RADIOLOGY Radiology Studies Ordered: Category Date Time Status CXRPORT [CHEST X-RAY PORTABLE*] [RAD] Stat Radiology 06/06/20 15:34 Completed Medical Decision Making - Medical Decision Making 06/06/20 18:50 59 y/o F with hx of HLD and lung adenocarcinoma s/p left lower lobectomy BIBEMS from Dr Santiago's office for CT findings of pnx. HR 110s. PE notable for diminished breaht sounds on the left. -discussed with Dr Carreon and he believes findings are more consistent with trapped lung and additional pigtail/chest tube will provide minimal improvement -Dr laguerre consulted by Dr Carreon and will plan for Pleurx tomorrow morning -admission labs + cardiac prof sent for further workup and eval of tachycardia 06/06/20 18:[address] Zamora Discharge - Discharge Information Problems reviewed: Yes Clinical Impression/Diagnosis: Pneumothorax, Pleural effusion Condition: Fair - Follow up/Referral - Patient Discharge Instructions - Post Discharge Activity
--- NOTE | 2020-06-06 20:32 | HP ---
<Griffin Squires - Last Filed: 06/07/20 03:57> CHIEF COMPLAINT: I have cough and chest pain PCP: Dr. anastacio vegas HISTORY OF PRESENT ILLNESS: 59 y F with a PMH of HLD, Lung adenocarcinoma s/p KYRA wedge resection and LLL resection, present today to ED with a referral from her new chief creative officer, Dr. Santiago for new CT findings of progressive Left hydropneumothorax. She reports that her previous chief creative officer. Dr. Osman retired and referred her to Dr. Santiago to F/U with her new CT results. She report that Dr. Osman repeated the CT because the previous CT was significant for findings of fluids in her left lungs. She went to see Dr. Randall this morning to F/U with her new CT results when he referred her to the ED due to the new CT findings of L. Hydropneumothorax. At this time, she reports a dry cough (that she had for a long time) and mild Bilateral chest pain associated with deep inspirations and cough. denies any SOB, headache, Fever, chills, nausea, vomiting, and any changes in her bowel or bladder habits. Previous Visit 02/28/18-03/04/18, Patient admitted for lobectomy due to suspicion for malignancy( PET scan- KYRA and LLL non solid masses). On 02/28/18 patient underwent Left VATS upper lobe wedge resection, left lower lobe resection and mediastinal lymph node sampling. Surgical pathology report confirmed adenocarcinoma of lung: * KYRA wedge resection: adenocarcinoma in situ, non-mucinous, no invasion identified * LLL resection: moderately differentiated adenocarcinoma, acinar predominant with lepidic pattern, carcinoma invades into, but through visceral pleura; lymph vascular invasion present * CK7 and TTF-1 positive, CK20 negative c/w pulmonary origin * PD-L1 TPS: 0% (No PD-L1 Expression) ER course was notable for: (1) CXR (2) HR 110 (3) Recent Travel: denies PAST MEDICAL HISTORY: as above in HPI PAST SURGICAL HISTORY: Tonsillectomy at age 5, KYRA wedge resection + LLL resection Social History: Smoking: denies Alcohol: denies Drugs: denies Allergies No Known Allergies Allergy (Unverified 06/06/20 15:16) HOME MEDICATIONS: Home Medications Medication Instructions Recorded Atorvastatin Ca [Lipitor] 10 mg PO HS tablet 04/09/14 Cholecalciferol (Vitamin D3) 1,000 units PO DAILY 06/14/17 [Vitamin D3 -] Aspirin 81 mg PO DAILY 02/21/18 Metoprolol Succinate [Toprol XL -] 12.5 mg PO DAILY #30 tab.sr.24h 03/04/18 Cetirizine HCl [Zyrtec -] 10 mg PO DAILY 06/06/20 Potassium Chloride [K-Dur -] 20 meq PO BID 06/06/20 REVIEW OF SYSTEMS CONSTITUTIONAL: Absent: fever, chills, diaphoresis, generalized weakness, malaise, loss of appetite, HEENT: Absent: rhinorrhea, nasal congestion, throat pain, throat swelling, difficulty swallowing CARDIOVASCULAR: Present: Chest pain with cough and deep inspiration Absent: syncope, palpitations, irregular heart rate, lightheadedness, peripheral edema RESPIRATORY: Absent: cough, shortness of breath, dyspnea with exertion, orthopnea, wheezing GASTROINTESTINAL: Absent: abdominal pain, abdominal distension, nausea, vomiting, diarrhea, constipation GENITOURINARY: Absent: dysuria, frequency, urgency, hesitancy, hematuria MUSCULOSKELETAL: Absent: myalgia, arthralgia, joint swelling, back pain, neck pain NEUROLOGIC: Absent: headache, focal weakness or paresthesias, dizziness, unsteady gait, seizure, mental status changes, bladder or bowel incontinence PSYCHIATRIC: Absent: anxiety, depression, suicidal or homicidal ideation, hallucinations. PHYSICAL EXAMINATION Vital Signs - 24 hr 06/06/20 06/06/20 06/06/20 14:50 15:35 18:14 Temperature 98.3 F Pulse Rate 117 H Pulse Rate [ 110 H Left Radial] Respiratory 16 20 Rate Blood Pressure 127/76 Blood Pressure 126/78 [Right Arm] O2 Sat by Pulse 96 98 98 Oximetry (%) GENERAL: Awake, alert, and fully oriented, in no acute distress. HEAD: Normal with no signs of trauma. EYES: Pupils equal, round and reactive to light, extraocular movements intact, sclera anicteric, conjunctiva clear. EARS, NOSE, THROAT: Ears normal, nares patent, oropharynx clear without exudates. Moist mucous membranes. NECK: Normal range of motion, supple without lymphadenopathy, JVD, or masses. LUNGS: Decreased Breath sounds in the left lung. Right lung is clear to auscultation. No wheezes, and no crackles. HEART: Regular rate and rhythm, normal S1 and S2 without murmur, rub or gallop. ABDOMEN: Soft, nontender, not distended, normoactive bowel sounds, no guarding, no rebound, no masses. MUSCULOSKELETAL: Normal range of motion at all joints. No bony deformities or tenderness. No CVA tenderness. UPPER EXTREMITIES: 2+ pulses, warm, well-perfused. No cyanosis. No clubbing. No peripheral edema. LOWER EXTREMITIES: 2+ pulses, warm, well-perfused. No calf tenderness. No peripheral edema. Laboratory Results - last 24 hr 06/06/20 06/06/20 06/06/20 15:50 15:50 15:50 WBC 9.7 RBC 4.92 Hgb 13.9 Hct 42.2 MCV 85.7 MCH 28.2 MCHC 32.9 RDW 14.1 Plt Count 322 MPV 10.1 Absolute Neuts (auto) 8.0 Neutrophils % 83.1 H Lymphocytes % 8.9 Monocytes % 7.3 Eosinophils % 0.4 D Basophils % 0.3 Nucleated RBC % 0 PT with INR 12.70 INR 1.08 PTT (Actin FS) 25.3 Sodium 139 Potassium 3.5 Chloride 103 Carbon Dioxide 29 Anion Gap 7 L BUN 16.6 Creatinine 0.6 Est GFR (CKD-EPI)AfAm 114.82 Est GFR (CKD-EPI)NonAf 99.07 Random Glucose 143 H Calcium 9.1 Total Bilirubin 0.3 AST 19 ALT 16 Alkaline Phosphatase 108 Creatine Kinase 46 Troponin I < 0.02 Total Protein 6.1 L Albumin 3.2 L Blood Type Antibody Screen 06/06/20 15:50 WBC RBC Hgb Hct MCV MCH MCHC RDW Plt Count MPV Absolute Neuts (auto) Neutrophils % Lymphocytes % Monocytes % Eosinophils % Basophils % Nucleated RBC % PT with INR INR PTT (Actin FS) Sodium Potassium Chloride Carbon Dioxide Anion Gap BUN Creatinine Est GFR (CKD-EPI)AfAm Est GFR (CKD-EPI)NonAf Random Glucose Calcium Total Bilirubin AST ALT Alkaline Phosphatase Creatine Kinase Troponin I Total Protein Albumin Blood Type A POSITIVE Antibody Screen Negative ASSESSMENT/PLAN: This is a 59 y F with a PMH of HLD, Lung adenocarcinoma s/p KYRA wedge resection and LLL resection, present today to ED with a referral from her new chief creative officer, Dr. Santiago for CT findings. Patient is admitted for IR procedure, Pleurx in the Am #Left Hydropneumothorax - Hx of Lung adenocarcinoma s/p KYRA and LLB resections - CT and CXR was positive for progressive Left hydropneumothorax - Dr. Rubi, IR, was Consulted by Dr. Carreon. She is scheduled for a Pleurx in the Am - Will continue to monitor patient V/S in [place] #Elevated Blood sugar - Patient has no previous Hx of DM - BS @ 143 - Will repeat CMP, and Trend VBS - Ordered HbA1C #Hypoalbuminemia - Could be nutritional deficiency or urine protein loss - Will evaluate urine protein with UA and if positive will order Urine Protein/crea ratio to evaluate for Kidney function #FEN - No Fluid required at this time - Monitor electrolytes, Monitor BS - Diet: NPO, Procedure in AM #DVT PPx: - No chemical PPx at this time, Procedure in AM, - SCD #Dispo: - Admit to [facility], Pending IR eval and recommendations ATTENDING PHYSICIAN STATEMENT I saw and evaluated the patient. I reviewed the resident's note and discussed the case with the resident. I agree with the resident's findings and plan as documented. SUBJECTIVE: OBJECTIVE: ASSESSMENT AND PLAN: <Debra Zamora - Last Filed: 06/07/20 05:38> CHIEF COMPLAINT: PCP: HISTORY OF PRESENT ILLNESS: ER course was notable for: (1) (2) (3) Recent Travel: PAST MEDICAL HISTORY: PAST SURGICAL HISTORY: Social History: Smoking: Alcohol: Drugs: Allergies No Known Allergies Allergy (Unverified 06/06/20 15:16) HOME MEDICATIONS: Home Medications Medication Instructions Recorded Atorvastatin Ca [Lipitor] 10 mg PO HS tablet 04/09/14 Cholecalciferol (Vitamin D3) 1,000 units PO DAILY 06/14/17 [Vitamin D3 -] Aspirin 81 mg PO DAILY 02/21/18 Metoprolol Succinate [Toprol XL -] 12.5 mg PO DAILY #30 tab.sr.24h 03/04/18 Cetirizine HCl [Zyrtec -] 10 mg PO DAILY 06/06/20 Potassium Chloride [K-Dur -] 20 meq PO BID 06/06/20 REVIEW OF SYSTEMS CONSTITUTIONAL: Absent: fever, chills, diaphoresis, generalized weakness, malaise, loss of appetite, weight change HEENT: Absent: rhinorrhea, nasal congestion, throat pain, throat swelling, difficulty swallowing, mouth swelling, ear pain, eye pain, visual changes CARDIOVASCULAR: Absent: chest pain, syncope, palpitations, irregular heart rate, lightheadedness, peripheral edema RESPIRATORY: Absent: cough, shortness of breath, dyspnea with exertion, orthopnea, wheezing, stridor, hemoptysis GASTROINTESTINAL: Absent: abdominal pain, abdominal distension, nausea, vomiting, diarrhea, constipation, melena, hematochezia GENITOURINARY: Absent: dysuria, frequency, urgency, hesitancy, hematuria, flank pain, genital pain MUSCULOSKELETAL: Absent: myalgia, arthralgia, joint swelling, back pain, neck pain SKIN: Absent: rash, itching, pallor HEMATOLOGIC/IMMUNOLOGIC: Absent: easy bleeding, easy bruising, lymphadenopathy, frequent infections ENDOCRINE: Absent: unexplained weight gain, unexplained weight loss, heat intolerance, cold intolerance NEUROLOGIC: Absent: headache, focal weakness or paresthesias, dizziness, unsteady gait, seizure, mental status changes, bladder or bowel incontinence PSYCHIATRIC: Absent: anxiety, depression, suicidal or homicidal ideation, hallucinations. PHYSICAL EXAMINATION Vital Signs - 24 hr 06/06/20 06/06/20 06/06/20 14:50 15:35 18:14 Temperature 98.3 F Pulse Rate 117 H Pulse Rate [ 110 H Left Radial] Respiratory 16 20 Rate Blood Pressure 127/76 Blood Pressure 126/78 [Right Arm] O2 Sat by Pulse 96 98 98 Oximetry (%) 06/06/20 06/06/20 06/07/20 20:57 22:53 00:35 Temperature Pulse Rate Pulse Rate [ 95 H Left Radial] Respiratory 18 Rate Blood Pressure Blood Pressure 124/90 [Right Arm] O2 Sat by Pulse 100 100 100 Oximetry (%) 06/07/20 00:39 Temperature 97.5 F L Pulse Rate 89 Pulse Rate [ Left Radial] Respiratory 20 Rate Blood Pressure 125/71 Blood Pressure [Right Arm] O2 Sat by Pulse 100 Oximetry (%) GENERAL: Awake, alert, and fully oriented, in no acute distress. HEAD: Normal with no signs of trauma. EYES: Pupils equal, round and reactive to light, extraocular movements intact, sclera anicteric, conjunctiva clear. No lid lag. EARS, NOSE, THROAT: Ears normal, nares patent, oropharynx clear without exudates. Moist mucous membranes. NECK: Normal range of motion, supple without lymphadenopathy, JVD, or masses. LUNGS: Breath sounds equal, clear to auscultation bilaterally. No wheezes, and no crackles. No accessory muscle use. HEART: Regular rate and rhythm, normal S1 and S2 without murmur, rub or gallop. ABDOMEN: Soft, nontender, not distended, normoactive bowel sounds, no guarding, no rebound, no masses. No hepatomegaly or splenomegaly. MUSCULOSKELETAL: Normal range of motion at all joints. No bony deformities or tenderness. No CVA tenderness. UPPER EXTREMITIES: 2+ pulses, warm, well-perfused. No cyanosis. No clubbing. No peripheral edema. LOWER EXTREMITIES: 2+ pulses, warm, well-perfused. No calf tenderness. No peripheral edema. NEUROLOGICAL: Cranial nerves II-XII intact. Normal speech. Normal gait. PSYCHIATRIC: Cooperative. Good eye contact. Appropriate mood and affect. SKIN: Warm, dry, normal turgor, no rashes or lesions noted, normal capillary refill. Laboratory Results - last 24 hr 06/06/20 06/06/20 06/06/20 15:50 15:50 15:50 WBC 9.7 RBC 4.92 Hgb 13.9 Hct 42.2 MCV 85.7 MCH 28.2 MCHC 32.9 RDW 14.1 Plt Count 322 MPV 10.1 Absolute Neuts (auto) 8.0 Neutrophils % 83.1 H Lymphocytes % 8.9 Monocytes % 7.3 Eosinophils % 0.4 D Basophils % 0.3 Nucleated RBC % 0 PT with INR 12.70 INR 1.08 PTT (Actin FS) 25.3 Sodium 139 Potassium 3.5 Chloride 103 Carbon Dioxide 29 Anion Gap 7 L BUN 16.6 Creatinine 0.6 Est GFR (CKD-EPI)AfAm 114.82 Est GFR (CKD-EPI)NonAf 99.07 Random Glucose 143 H Calcium 9.1 Total Bilirubin 0.3 AST 19 ALT 16 Alkaline Phosphatase 108 Creatine Kinase 46 Troponin I < 0.02 Total Protein 6.1 L Albumin 3.2 L Urine Color Urine Appearance Urine pH Ur Specific [place] Urine Protein Urine Glucose (UA) Urine Ketones Urine Blood Urine Nitrite Urine Bilirubin Urine Urobilinogen Ur Leukocyte Esterase Blood Type Antibody Screen 06/06/20 06/06/20 15:50 23:50 WBC RBC Hgb Hct MCV MCH MCHC RDW Plt Count MPV Absolute Neuts (auto) Neutrophils % Lymphocytes % Monocytes % Eosinophils % Basophils % Nucleated RBC % PT with INR INR PTT (Actin FS) Sodium Potassium Chloride Carbon Dioxide Anion Gap BUN Creatinine Est GFR (CKD-EPI)AfAm Est GFR (CKD-EPI)NonAf Random Glucose Calcium Total Bilirubin AST ALT Alkaline Phosphatase Creatine Kinase Troponin I Total Protein Albumin Urine Color Yellow Urine Appearance Cloudy Urine pH 5.0 Ur Specific [place] 1.027 Urine Protein Trace Urine Glucose (UA) Negative Urine Ketones 1+ H Urine Blood Negative Urine Nitrite Negative Urine Bilirubin Negative Urine Urobilinogen 0.2 Ur Leukocyte Esterase Negative Blood Type A POSITIVE Antibody Screen Negative ASSESSMENT/PLAN: Visit type - Emergency Visit Emergency Visit: Yes ED Registration Date: 06/06/20 Care time: The patient presented to the Emergency Department on the above date and was hospitalized for further evaluation of their emergent condition. - New Patient This patient is new to me today: Yes Date on this admission: 06/07/20 - Critical Care Critical Care patient: No 59 year old Female with a PMHx notable for HLD, Lung adenocarcinoma s/p KYRA wedge resection and LLL resection, presented from chief creative officer, Dr. Santiago office for CT findings. Patient admitted for IR procedure, Pleurx in the Am #Left Hydropneumothorax - Hx of Lung adenocarcinoma s/p KYRA and LLL resections - CT and CXR was positive for progressive Left hydropneumothorax - She is scheduled for a Pleurx in the Am - NPO after midnight - gentle IV fluid hydration while NPO
[2020-06-06] MEDS ORDERED: guaiFENesin/CODEINE 5 ML UNIT-DOSE CUPS PO PRN (21:01)
[2020-06-07 00:59] LABS: URINE APPEARANCE CLOUDY; URINE BILIRUBIN NEGATIVE (NEGATIVE); URINE COLOR YELLOW; URINE GLUCOSE (UA) NEGATIVE (NEGATIVE); URINE KETONE 1+ (NEGATIVE); URINE LEUK ESTERASE NEGATIVE (NEGATIVE); URINE NITRITE NEGATIVE (NEGATIVE); URINE PROTEIN TRACE (NEGATIVE); URINE UROBILINOGEN 0.2 mg/dL (0.2-1.0)
[2020-06-07 06:37] LABS: BASO % 0.7 % (0-2.0); EOS % 1.7 % (0-4.5); HEMATOCRIT 42.7 % (32.4-45.2); HEMOGLOBIN 13.7 GM/dL (10.7-15.3); LYMPH % 16.3 % (8-40); MCH 27.5 pg (25.7-33.7); MEAN CELL VOLUME 85.8 fl (80-96); MEAN PLT VOLUME 10.2 fl (7.5-11.1); MONO % 8.4 % (3.8-10.2); NEUT % 72.9 % (42.8-82.8); PLATELET COUNT 275 K/MM3 (134-434); RBC 4.97 M/mm3 (3.60-5.2); WHITE BLOOD COUNT 8.3 K/mm3 (4.0-10.0)
[2020-06-07 07:06] LABS: ALK PHOS 102 U/L (45-117); BILIRUBIN,TOTAL 0.6 mg/dL (0.2-1); CREATININE 0.4 mg/dL (0.55-1.3); GLUCOSE,RANDOM 86 mg/dL (74-106); SGOT/AST 16 U/L (15-37); SGPT/ALT 15 U/L (13-61); TOT PROT 5.7 g/dl (6.4-8.2)
[2020-06-07 07:07] LABS: ANION GAP 10 MMOL/L (8-16); BLOOD UREA NITROGEN 15.3 mg/dL (7-18); CALCIUM 8.7 mg/dL (8.5-10.1); CHLORIDE 105 mmol/L (98-107); CO2 27 mmol/L (21-32); MAGNESIUM 1.8 mg/dL (1.8-2.4); PHOSPHOROUS 3.5 mg/dL (2.5-4.9); POTASSIUM 3.5 mmol/L (3.5-5.1); SODIUM 142 mmol/L (136-145)
[2020-06-07] MEDS: POTASSIUM CHLORIDE TABS 20 MEQ TABLET.ER (FP) PO SCH ×2 (09:02→21:08)
[2020-06-07] MEDS: metoPROLOL SUCCINATE 25 MG TAB.SR.24H (FP) PO SCH (09:02)
[2020-06-07] MEDS: CHOLECALCIFEROL (VIT D3) 1,000 UNIT (25 MCG) TABLET PO SCH (09:03)
--- NOTE | 2020-06-07 14:20 | PN ---
Progress Note (short form) - Note Progress Note: PULMONARY CONSULTATION DICTATED 06/07/20 IMP HYDRO-PNEUMOTHORAX S/P PLEUR-X LUNG CA S/P KYRA WEDGE RESECTION,LLL RESECTION S/P CHEMO MALIGNANT PLEURAL EFFUSION HTN HLD PLAN SUPPLEMENTAL O2 CHEST TUBE THORACIC SURGERY EVALUATION ONCOLOGY EVAL ANTI-TUSSIVES DR PAZ Problem List - Problems (1) Malignant pleural effusion Code(s): J91.0 - MALIGNANT PLEURAL EFFUSION (2) Lung cancer Code(s): C34.90 - MALIGNANT NEOPLASM OF UNSP PART OF UNSP BRONCHUS OR LUNG (4) Trapped lung Code(s): J98.19 - OTHER PULMONARY COLLAPSE (5) Pneumothorax Code(s): J93.9 - PNEUMOTHORAX, UNSPECIFIED
--- NOTE | 2020-06-07 15:27 | CONSULT ---
Consult - text type - Consultation Consultation Note: Thoracic Surgery Consult Pt well known to me s/p vats left lower lobectomy for stage 2 adenocarcinoma. Now has malignant effusion and is s/p pleurx. Of note, her left upper lobe (s/p left lower lobectomy) is trapped. There is no airleak when she coughs. -her lung will not expand right away, but may after prolonged pleurx drainage and new systemic therapy; -Dr. Guallpa will follow as outpatient; -She will need VNS set up and her drain must be detached from pleurx prior to discharge; -I will follow as ouptatient too. I have spent 30 minutes on this consultation with greater than 50% in counseling and coordination of care including discussing this patient with Dr. Guallpa, Dr. Anderson, and Dr. Lal.
[2020-06-07] MEDS: ACETAMINOPHEN 325 MG TABLET (FP) PO PRN (15:41)
--- NOTE | 2020-06-07 15:46 | PDOC ---
Documentation entered by Hanh Hernadez SCRIBE, acting as scribe for Bea Simpson MD. Bea Simpson MD: This documentation has been prepared by the aideibeSatya Ana, SCRIBE, under my direction and personally reviewed by me in its entirety. I confirm that the documentation accurately reflects all work, treatment, procedures, and medical decision making performed by me. Attending Attestation - Resident Resident Name: Lavern Sin - ED Attending Attestation I have performed the following: I have examined & evaluated the patient, The case was reviewed & discussed with the resident, I agree w/resident's findings & plan, Exceptions are as noted - HPI HPI: 06/06/20 17:18 Patient is a 59 year old female with a significant past medical history of nephrolithiasis, diastolic LV dysfunction, anxiety, hyperlipidemia, and lung adenocardinoma s/p resection, who presents to the ED with shortness of breath. Patient developed a cough approximately 2 weeks ago, found to have loculated L pleural effusion and poor expansion of remaining lung. Patient had a recent thoracentesis performed that revealed effusion was malignant. Pt was sent to the ED for admission for a pleurex catheter. Patient denies fever, chills, chest pain, or any other related symptoms. Allergies: NKDA - Physicial Exam PE: Agree with resident exam - Medical Decision Making 59yo F with MMP including lung ca s/p resection c/b loculated malignant pleural effusion presents for admission for pleurex catheter. Vitals stable. Pt currently denies SOB and is HDS. Pt seen by Dr. Rubi, catheter to be placed by IR tomorrow Discharge - Discharge Information Problems reviewed: Yes - Discharge Information Clinical Impression/Diagnosis: Pneumothorax, Pleural effusion Condition: Fair
--- NOTE | 2020-06-07 15:47 | PN ---
Teaching Attending Note Name of Resident: Goldy Werner ATTENDING PHYSICIAN STATEMENT I saw and evaluated the patient. I reviewed the resident's note and discussed the case with the resident. I agree with the resident's findings and plan as documented. SUBJECTIVE: Seen and examined at bedside. Denies shortness of breath. Status post Pleurx catheter placement without complication. Satting 98% on room air. OBJECTIVE: Last Vital Signs Temp Pulse Resp BP Pulse Ox 98.3 F 96 H 18 120/69 98 06/07/20 14:06/07/20 14:06/07/20 14:06/07/20 14:06/07/20 10:45 PE: per resident note Labs/Imaging: reviewed ASSESSMENT AND PLAN: 59-year-old female with a past medical history of hyperlipidemia, lung adenocarcinoma status post left upper lobe wedge resection and left lower lobe resection presents with left hydropneumothorax after being referred by Dr. Shankar. Patient is now status post Pleurx catheter #Left hydropneumothorax Status post Pleurx catheter placed 06/07/2020 Pulmonary and thoracic surgery on board: Recommendations appreciated Continue to monitor vital signs off oxygen -will discuss disposition plans with pulm/thoracic surgery #Hypertension Continue metoprolol Hyperlipidemia Continue home atorvastatin
--- NOTE | 2020-06-07 16:55 | CONS ---
DATE OF CONSULTATION: 06/07/2020 PULMONARY CONSULTATION REFERRING PHYSICIAN: Min Gilliland MD. HISTORY OF PRESENT ILLNESS: The patient is a 59-year-old female with past medical history of hyperlipidemia, history of lung CA, adenocarcinoma status post left upper lobe wedge resection, left lower lobe dissection February 2018, postoperative treated with chemotherapy by . Recently noted on CAT scan to have increasing left pleural effusion. Patient underwent thoracentesis on May 24, 2020. Cytology returned positive. Patient went to see Dr. Anderson yesterday on day of admission with whom she is noted to have complaint of shortness of breath and cough. Chest x-ray, CT performed revealed progressive left hydropneumothorax. Subsequently admitted for further evaluation. Patient underwent a thoracentesis and Pleurx insertion earlier today, tolerated the procedure well. Of note, lungs failed to expand post thoracentesis and was likely secondary to a trapped lung. Patient denies any history of tobacco use. There is no history of occupational exposure to chemicals or fumes. There is no recent DVT or PE in the past. PAST MEDICAL HISTORY: Again includes lung CA status post left upper lobe wedge resection, left lower lobe resection February 2018 as well as status post treatment with chemotherapy, hyperlipidemia. Hypertension. REVIEW OF SYSTEMS: Positive cough. Positive dyspnea on exertion. No fever. No chills. No hemoptysis. Mild chest discomfort. No abdominal pain, lower extremity edema. CURRENT MEDICATIONS: Include Toprol, Lipitor, K-Dur, vitamin D3, and Tylenol. PHYSICAL EXAMINATION: General: The patient is a well-developed, well-nourished female, awake, alert, in no acute distress. She is currently afebrile. Vital Signs: Blood pressure 120/69, O2 saturation 98% on unknown quantity of oxygen. HEENT: Normocephalic, atraumatic. Neck: Supple. Heart: Regular S1, S2. Chest: Clear. With diminished breath sounds on the left. Abdomen: Soft, bowel sounds positive. Extremities: No cyanosis, edema. LABORATORY: WBC is 8.3, hemoglobin 13.7, hematocrit 42.0, platelet count of 235,000. Chemistry: BUN 15, creatinine 0.4. Pleural fluid previous was total protein of 5 and LDH of 749, amylase 376, and the cytology is positive adenocarcinoma. IMPRESSION: 1. Hydropneumothorax status post chest tube status post Pleurx insertion most likely secondary to trapped left lung. 2. Lung carcinoma status post left upper lobe wedge resection, left lower lobe resection, status post chemotherapy. 3. Malignant pleural effusion. 4. Hypertension. 5. Hyperlipidemia. PLAN: Supplemental O2. Chest tube to drainage, to low suction. oncology evaluation. Analgesics. Cough medications. DERIK PAZ M.D. VANESSA/[id number]
--- NOTE | 2020-06-07 20:04 | PN ---
Physical Exam: SUBJECTIVE: Patient seen and examined Patient was examined at bedside. Patient endorses no acute events overnight. OBJECTIVE: Vital Signs Period Temp Pulse Resp BP Sys/Gonzalez Pulse Ox Last 24 Hr 97.5 F-98.3 F 81-96 18-20 112-135/66-90 98-100 GENERAL: The patient is awake, alert, and fully oriented, in no acute distress. HEAD: Normal with no signs of trauma. EYES: PERRL, extraocular movements intact, sclera anicteric, conjunctiva clear. No ptosis. ENT: Ears normal, nares patent, oropharynx clear without exudates, moist mucous membranes. NECK: Trachea midline, full range of motion, supple. LUNGS: Breath sounds equal, clear to auscultation bilaterally, no wheezes, no crackles, no accessory muscle use. HEART: Regular rate and rhythm, S1, S2 without murmur, rub or gallop. ABDOMEN: Soft, nontender, nondistended, normoactive bowel sounds, no guarding, no rebound, no hepatosplenomegaly, no masses. EXTREMITIES: 2+ pulses, warm, well-perfused, no edema. NEUROLOGICAL: Cranial nerves II through XII grossly intact. Normal speech, gait not observed. PSYCH: Normal mood, normal affect. SKIN: Warm, dry, normal turgor, no rashes or lesions noted Laboratory Results - last 24 hr 06/06/20 06/07/20 06/07/20 23:50 06:15 06:15 WBC 8.3 RBC 4.97 Hgb 13.7 Hct 42.7 MCV 85.8 MCH 27.5 MCHC 32.0 RDW 14.0 Plt Count 275 MPV 10.2 Absolute Neuts (auto) 6.1 Neutrophils % 72.9 Lymphocytes % 16.3 D Monocytes % 8.4 Eosinophils % 1.7 D Basophils % 0.7 Nucleated RBC % 0 Sodium 142 Potassium 3.5 Chloride 105 Carbon Dioxide 27 Anion Gap 10 BUN 15.3 Creatinine 0.4 L Est GFR (CKD-EPI)AfAm 131.21 Est GFR (CKD-EPI)NonAf 113.21 Random Glucose 86 Hemoglobin A1c % Calcium 8.7 Phosphorus 3.5 Magnesium 1.8 Total Bilirubin 0.6 AST 16 ALT 15 Alkaline Phosphatase 102 Troponin I < 0.02 Total Protein 5.7 L Albumin 3.0 L Urine Color Yellow Urine Appearance Cloudy Urine pH 5.0 Ur Specific Ralph 1.027 Urine Protein Trace Urine Glucose (UA) Negative Urine Ketones 1+ H Urine Blood Negative Urine Nitrite Negative Urine Bilirubin Negative Urine Urobilinogen 0.2 Ur Leukocyte Esterase Negative 06/07/20 06:15 WBC RBC Hgb Hct MCV MCH MCHC RDW Plt Count MPV Absolute Neuts (auto) Neutrophils % Lymphocytes % Monocytes % Eosinophils % Basophils % Nucleated RBC % Sodium Potassium Chloride Carbon Dioxide Anion Gap BUN Creatinine Est GFR (CKD-EPI)AfAm Est GFR (CKD-EPI)NonAf Random Glucose Hemoglobin A1c % 5.3 Calcium Phosphorus Magnesium Total Bilirubin AST ALT Alkaline Phosphatase Troponin I Total Protein Albumin Urine Color Urine Appearance Urine pH Ur Specific Ralph Urine Protein Urine Glucose (UA) Urine Ketones Urine Blood Urine Nitrite Urine Bilirubin Urine Urobilinogen Ur Leukocyte Esterase Active Medications Generic Name Dose Route Start Last Admin Trade Name Freq PRN Reason Stop Dose Admin Acetaminophen 650 mg 06/07/20 14:41 06/07/20 15:41 Tylenol - PO 650 mg Q6H PRN Administration PAIN 1-3 Atorvastatin Calcium 10 mg 06/07/20 22:00 Lipitor - PO HS MELBA Cholecalciferol 1,000 unit 06/07/20 10:00 06/07/20 09:03 Vitamin D3 - PO 1,000 unit DAILY MELBA Administration Metoprolol Succinate 12.5 mg 06/07/20 10:00 06/07/20 09:02 Toprol Xl - PO 12.5 mg DAILY MELBA Administration Potassium Chloride 20 meq 06/07/20 10:00 06/07/20 09:02 K-Dur - PO 20 meq BID MELBA Administration ASSESSMENT/PLAN: Sai is a 59F with a pmhx of HTN,HLD, lung adenocarcinoma s/p left upper lobe wedge resection and LLL resection. Pt presents to the hospital by Dr. Shankar w left hydropneumothorax. Patient was sent to IR for a pleurovax catheter and has been admitted to telemetry. # Progressive L hydropneumothorax Pleurx catheter placed 06/07/[address] Maurice (pulmonology) on board - Dr. Rubi (Thoracic surgery) on board - follow up w disposition monitoring vitals on telemetry #Hypertension Continue home metoprolol #Hyperlipidemia Continue home atorvastatin ATTENDING PHYSICIAN STATEMENT I saw and evaluated the patient. I reviewed the resident's note and discussed the case with the resident. I agree with the resident's findings and plan as documented. SUBJECTIVE: OBJECTIVE: ASSESSMENT AND PLAN:
[2020-06-07] MEDS: ATORVASTATIN CA 10 MG TABLET (FP) PO SCH (21:08)
[2020-06-08] MEDS: ACETAMINOPHEN 325 MG TABLET (FP) PO PRN ×2 (00:48→21:26)
--- NOTE | 2020-06-08 07:02 | PN ---
Progress Note, Physician History of Present Illness: pulmonary alert,comfortable,-c/o sob,chest tubee draining - Current Medication List Current Medications: Active Medications Acetaminophen (Tylenol -) 650 mg PO Q6H PRN PRN Reason: PAIN 1-3 Last Admin: 06/08/20 00:48 Dose: 650 mg Documented by: Atorvastatin Calcium (Lipitor -) 10 mg PO HS [facility] Last Admin: 06/07/20 21:08 Dose: 10 mg Documented by: Cholecalciferol (Vitamin D3 -) 1,000 unit PO DAILY [facility] Last Admin: 06/07/20 09:03 Dose: 1,000 unit Documented by: Metoprolol Succinate (Toprol Xl -) 12.5 mg PO DAILY [facility] Last Admin: 06/07/20 09:02 Dose: 12.5 mg Documented by: Potassium Chloride (K-Dur -) 20 meq PO BID [facility] Last Admin: 06/07/20 21:08 Dose: 20 meq Documented by: - Objective Vital Signs: Vital Signs Temperature 98.0 F 06/08/20 05:47 Pulse Rate 96 H 06/08/20 05:47 Respiratory Rate 18 06/08/20 05:47 Blood Pressure 103/51 L 06/08/20 05:47 O2 Sat by Pulse Oximetry (%) 95 06/07/20 21:00 Constitutional: Yes: Well Nourished, Calm Eyes: Yes: WNL HENT: Yes: WNL Neck: Yes: WNL Cardiovascular: Yes: Regular Rate and Rhythm, S1, S2 Respiratory: Yes: Diminished Gastrointestinal: Yes: Normal Bowel Sounds, Soft Extremities: Yes: WNL Edema: No Labs: INR, PTT INR 1.08 (0.83-1.09) 06/06/20 15:50 Problem List - Problems (1) Malignant pleural effusion Code(s): J91.0 - MALIGNANT PLEURAL EFFUSION (2) Lung cancer Code(s): C34.90 - MALIGNANT NEOPLASM OF UNSP PART OF UNSP BRONCHUS OR LUNG (4) Trapped lung Code(s): J98.19 - OTHER PULMONARY COLLAPSE (5) Pneumothorax Code(s): J93.9 - PNEUMOTHORAX, UNSPECIFIED Assessment/Plan IMP HYDRO-PNEUMOTHORAX/TRAPPED LUNG S/P PLEUR-X t LUNG CA S/P KYRA WEDGE RESECTION,LLL RESECTION S/P CHEMO MALIGNANT PLEURAL EFFUSION HTN HLD PLAN SUPPLEMENTAL O2 CHEST TUBE THORACIC SURGERY EVALUATION ONCOLOGY EVAL ANTI-TUSSIVES DR PAZ Problem List - Problems (1) Malignant pleural effusion Code(s): J91.0 - MALIGNANT PLEURAL EFFUSION (2) Lung cancer Code(s): C34.90 - MALIGNANT NEOPLASM OF UNSP PART OF UNSP BRONCHUS OR LUNG (4) Trapped lung Code(s): J98.19 - OTHER PULMONARY COLLAPSE (5) Pneumothorax Code(s): J93.9 - PNEUMOTHORAX, UNSPECIFIED
[2020-06-08 07:29] LABS: BASO % 0.3 % (0-2.0); EOS % 1.5 % (0-4.5); HEMATOCRIT 41.5 % (32.4-45.2); HEMOGLOBIN 13.4 GM/dL (10.7-15.3); LYMPH % 11.4 % (8-40); MCH 27.8 pg (25.7-33.7); MCHC 32.4 g/dl (32.0-36.0); MEAN PLT VOLUME 9.7 fl (7.5-11.1); NEUT % 78.8 % (42.8-82.8); PLATELET COUNT 304 K/MM3 (134-434); RBC 4.82 M/mm3 (3.60-5.2); RDW 14.3 % (11.6-15.6)
[2020-06-08 07:50] LABS: ALBUMIN 2.9 g/dl (3.4-5.0); BILIRUBIN,TOTAL 0.6 mg/dL (0.2-1); BLOOD UREA NITROGEN 18.1 mg/dL (7-18); CALCIUM 8.7 mg/dL (8.5-10.1); CREATININE 0.6 mg/dL (0.55-1.3); MAGNESIUM 1.9 mg/dL (1.8-2.4); PHOSPHOROUS 3.3 mg/dL (2.5-4.9); POTASSIUM 4.1 mmol/L (3.5-5.1)
[2020-06-08 07:51] LABS: TOT PROT 5.5 g/dl (6.4-8.2)
[2020-06-08] MEDS: POTASSIUM CHLORIDE TABS 20 MEQ TABLET.ER (FP) PO SCH ×2 (09:38→21:26)
[2020-06-08] MEDS: CHOLECALCIFEROL (VIT D3) 1,000 UNIT (25 MCG) TABLET PO SCH (09:38)
[2020-06-08] MEDS: metoPROLOL SUCCINATE 25 MG TAB.SR.24H (FP) PO SCH (09:38)
--- NOTE | 2020-06-08 14:33 | PN ---
Progress Note (short form) - Note Progress Note: SUBJECTIVE: Seen and examined at bedside. Patient denies shortness of breath, chest pain. Pleurx catheter draining approximately 1 L. OBJECTIVE: Last Vital Signs Temp Pulse Resp BP Pulse Ox 98.4 F 96 H 18 110/68 95 06/08/20 10:00 06/08/20 10:00 06/08/20 12:14 06/08/20 10:00 06/08/20 12:14 PE: GEN: lying in bed, nad HEENT: NC/AT MAKENNA RESP: reduced BS on L side, pleurex catheter in place CARDS: RRR, -mrg ABD: Soft, nt/nd +BS EXT: no swelling/Edema NEURO: A&OX3 Labs/Imaging: reviewed ASSESSMENT AND PLAN: 59-year-old female with a past medical history of hyperlipidemia, lung adenocarcinoma status post left upper lobe wedge resection and left lower lobe resection presents with left hydropneumothorax after being referred by Dr. Shankar. Patient is now status post Pleurx catheter #Left hydropneumothorax Status post Pleurx catheter placed 06/07/2020 Pulmonary and thoracic surgery on board: Recommendations appreciated Continue to monitor vital signs off oxygen -will discuss disposition plans with pulm/thoracic surgery #Hypertension Continue metoprolol Hyperlipidemia Continue home atorvastatin Visit type - Emergency Visit Emergency Visit: Yes ED Registration Date: 06/06/20 Care time: The patient presented to the Emergency Department on the above date and was hospitalized for further evaluation of their emergent condition. - New Patient This patient is new to me today: No - Critical Care Critical Care patient: No
[2020-06-08] MEDS: ATORVASTATIN CA 10 MG TABLET (FP) PO SCH (21:26)
--- NOTE | 2020-06-09 07:39 | PN ---
Progress Note, Physician History of Present Illness: pulmonary alert,comfortable,-sob,less cough - Current Medication List Current Medications: Active Medications Acetaminophen (Tylenol -) 650 mg PO Q6H PRN PRN Reason: PAIN 1-3 Last Admin: 06/08/20 21:26 Dose: 650 mg Documented by: Atorvastatin Calcium (Lipitor -) 10 mg PO HS [facility] Last Admin: 06/08/20 21:26 Dose: 10 mg Documented by: Cholecalciferol (Vitamin D3 -) 1,000 unit PO DAILY [facility] Last Admin: 06/08/20 09:38 Dose: 1,000 unit Documented by: Metoprolol Succinate (Toprol Xl -) 12.5 mg PO DAILY [facility] Last Admin: 06/08/20 09:38 Dose: 12.5 mg Documented by: Potassium Chloride (K-Dur -) 20 meq PO BID [facility] Last Admin: 06/08/20 21:26 Dose: 20 meq Documented by: - Objective Vital Signs: Vital Signs Temperature 98.6 F 06/09/20 06:00 Pulse Rate 98 H 06/09/20 06:00 Respiratory Rate 20 06/09/20 06:00 Blood Pressure 127/58 L 06/09/20 06:00 O2 Sat by Pulse Oximetry (%) 95 06/08/20 21:00 Constitutional: Yes: Well Nourished, Calm Eyes: Yes: WNL HENT: Yes: WNL Neck: Yes: WNL Cardiovascular: Yes: Regular Rate and Rhythm, S1, S2 Respiratory: Yes: CTA Bilaterally Gastrointestinal: Yes: Normal Bowel Sounds, Soft Extremities: Yes: WNL Edema: No Labs: CBC, BMP Problem List - Problems (1) Malignant pleural effusion Code(s): J91.0 - MALIGNANT PLEURAL EFFUSION (2) Lung cancer Code(s): C34.90 - MALIGNANT NEOPLASM OF UNSP PART OF UNSP BRONCHUS OR LUNG (4) Trapped lung Code(s): J98.19 - OTHER PULMONARY COLLAPSE (5) Pneumothorax Code(s): J93.9 - PNEUMOTHORAX, UNSPECIFIED Assessment/Plan IMP HYDRO-PNEUMOTHORAX/TRAPPED LUNG S/P PLEUR-X t LUNG CA S/P KYRA WEDGE RESECTION,LLL RESECTION S/P CHEMO MALIGNANT PLEURAL EFFUSION HTN HLD PLAN SUPPLEMENTAL O2 CHEST TUBE THORACIC SURGERY EVALUATION ONCOLOGY EVAL ANTI-TUSSIVES DR PAZ Problem List - Problems (1) Malignant pleural effusion Code(s): J91.0 - MALIGNANT PLEURAL EFFUSION (2) Lung cancer Code(s): C34.90 - MALIGNANT NEOPLASM OF UNSP PART OF UNSP BRONCHUS OR LUNG (4) Trapped lung Code(s): J98.19 - OTHER PULMONARY COLLAPSE (5) Pneumothorax Code(s): J93.9 - PNEUMOTHORAX, UNSPECIFIED
--- NOTE | 2020-06-09 08:34 | PN ---
Physical Exam: SUBJECTIVE: Patient seen and examined Patient was observed at bedside. Patient is comfortable on wall suction for pleurovac. No complaints overnight besides being bored. Denies SOB or chest pain OBJECTIVE: Vital Signs Period Temp Pulse Resp BP Sys/Gonzalez Pulse Ox Last 24 Hr 97.2 F-98.6 F 91-106 18-20 104-127/7-72 94-95 GENERAL: The patient is awake, alert, and fully oriented, in no acute distress. HEAD: Normal with no signs of trauma. EYES: PERRL, extraocular movements intact, sclera anicteric, conjunctiva clear. No ptosis. ENT: Ears normal, nares patent, oropharynx clear without exudates, moist mucous membranes. NECK: Trachea midline, full range of motion, supple. LUNGS: Breath sounds equal, clear to auscultation bilaterally, no wheezes, no crackles, no accessory muscle use. HEART: Regular rate and rhythm, S1, S2 without murmur, rub or gallop. ABDOMEN: Soft, nontender, nondistended, normoactive bowel sounds, no guarding, no rebound, no hepatosplenomegaly, no masses. EXTREMITIES: 2+ pulses, warm, well-perfused, no edema. NEUROLOGICAL: Cranial nerves II through XII grossly intact. Normal speech, gait not observed. PSYCH: Normal mood, normal affect. SKIN: Warm, dry, normal turgor, no rashes or lesions noted Active Medications Generic Name Dose Route Start Last Admin Trade Name Freq PRN Reason Stop Dose Admin Acetaminophen 650 mg 06/07/20 14:41 06/08/20 21:26 Tylenol - PO 650 mg Q6H PRN Administration PAIN 1-3 Atorvastatin Calcium 10 mg 06/07/20 22:00 06/08/20 21:26 Lipitor - PO 10 mg HS MELBA Administration Cholecalciferol 1,000 unit 06/07/20 10:00 06/08/20 09:38 Vitamin D3 - PO 1,000 unit DAILY MELBA Administration Metoprolol Succinate 12.5 mg 06/07/20 10:00 06/08/20 09:38 Toprol Xl - PO 12.5 mg DAILY MELBA Administration Potassium Chloride 20 meq 06/07/20 10:00 06/08/20 21:26 K-Dur - PO 20 meq BID MELBA Administration ASSESSMENT/PLAN: ATTENDING PHYSICIAN STATEMENT I saw and evaluated the patient. I reviewed the resident's note and discussed the case with the resident. I agree with the resident's findings and plan as documented. SUBJECTIVE: OBJECTIVE: ASSESSMENT AND PLAN:
[2020-06-09 09:05] LABS: BASO % 0.4 % (0-2.0); EOS % 2.9 % (0-4.5); HEMATOCRIT 43.7 % (32.4-45.2); HEMOGLOBIN 14.4 GM/dL (10.7-15.3); LYMPH % 11.1 % (8-40); MCH 28.3 pg (25.7-33.7); MCHC 32.9 g/dl (32.0-36.0); MEAN CELL VOLUME 86.1 fl (80-96); MEAN PLT VOLUME 9.4 fl (7.5-11.1); MONO % 7.5 % (3.8-10.2); NEUT % 78.1 % (42.8-82.8); PLATELET COUNT 308 K/MM3 (134-434); RBC 5.07 M/mm3 (3.60-5.2); RDW 14.2 % (11.6-15.6); WHITE BLOOD COUNT 8.6 K/mm3 (4.0-10.0)
[2020-06-09 09:37] LABS: ALBUMIN 2.9 g/dl (3.4-5.0); BILIRUBIN,TOTAL 0.4 mg/dL (0.2-1); BLOOD UREA NITROGEN 15.8 mg/dL (7-18); CREATININE 0.5 mg/dL (0.55-1.3); TOT PROT 5.7 g/dl (6.4-8.2)
[2020-06-09] MEDS: POTASSIUM CHLORIDE TABS 20 MEQ TABLET.ER (FP) PO SCH ×2 (09:42→21:59)
[2020-06-09] MEDS: CHOLECALCIFEROL (VIT D3) 1,000 UNIT (25 MCG) TABLET PO SCH (09:42)
[2020-06-09] MEDS: metoPROLOL SUCCINATE 25 MG TAB.SR.24H (FP) PO SCH (09:42)
--- NOTE | 2020-06-09 12:58 | PN ---
Teaching Attending Note Name of Resident: Goldy Werner ATTENDING PHYSICIAN STATEMENT I saw and evaluated the patient. I reviewed the resident's note and discussed the case with the resident. I agree with the resident's findings and plan as documented. Seen and examined at bedside. [address] 80mg. Satting well on RA. Follow-up chest x-ray to assess residual volume OBJECTIVE: Last Vital Signs Temp Pulse Resp BP Pulse Ox 98.3 F 107 H 20 107/54 L 97 06/09/20 10:06/09/20 10:06/09/20 10:06/09/20 10:06/09/20 10:00 PE: GEN: lying in bed, nad HEENT: NC/AT MAKENNA RESP: reduced BS on L side, pleurex catheter in place CARDS: RRR, -mrg ABD: Soft, nt/nd +BS EXT: no swelling/Edema NEURO: A&OX3 Labs/Imaging: reviewed ASSESSMENT AND PLAN: 59-year-old female with a past medical history of hyperlipidemia, lung adenocarcinoma status post left upper lobe wedge resection and left lower lobe resection presents with left hydropneumothorax after being referred by Dr. Shankar. Patient is now status post Pleurx catheter #Left hydropneumothorax Status post Pleurx catheter placed 06/07/2020 Pulmonary and thoracic surgery on board: Recommendations appreciated Continue to monitor vital signs off oxygen -will discuss disposition plans with pulm/thoracic surgery #Hypertension Continue metoprolol Hyperlipidemia Continue home atorvastatin
[2020-06-09] MEDS: ATORVASTATIN CA 10 MG TABLET (FP) PO SCH (22:00)
[2020-06-09] MEDS ORDERED: LORATADINE 10 MG TABLET PO ONE (22:36)
[2020-06-10 07:17] LABS: BASO % 0.4 % (0-2.0); EOS % 3.4 % (0-4.5); HEMOGLOBIN 13.9 GM/dL (10.7-15.3); LYMPH % 15.9 % (8-40); MCHC 33.1 g/dl (32.0-36.0); MEAN CELL VOLUME 84.6 fl (80-96); MEAN PLT VOLUME 9.6 fl (7.5-11.1); MONO % 8.1 % (3.8-10.2); NEUT % 72.2 % (42.8-82.8); PLATELET COUNT 282 K/MM3 (134-434); RBC 4.97 M/mm3 (3.60-5.2); RDW 14.2 % (11.6-15.6); WHITE BLOOD COUNT 8.1 K/mm3 (4.0-10.0)
[2020-06-10 07:43] LABS: ALBUMIN 2.6 g/dl (3.4-5.0); BILIRUBIN,TOTAL 0.4 mg/dL (0.2-1); BLOOD UREA NITROGEN 16.6 mg/dL (7-18); CALCIUM 8.4 mg/dL (8.5-10.1); CREATININE 0.5 mg/dL (0.55-1.3); MAGNESIUM 1.8 mg/dL (1.8-2.4); POTASSIUM 4.1 mmol/L (3.5-5.1); TOT PROT 5.4 g/dl (6.4-8.2)
[2020-06-10] MEDS: CHOLECALCIFEROL (VIT D3) 1,000 UNIT (25 MCG) TABLET PO SCH (09:20)
[2020-06-10] MEDS: POTASSIUM CHLORIDE TABS 20 MEQ TABLET.ER (FP) PO SCH (09:20)
[2020-06-10] MEDS: metoPROLOL SUCCINATE 25 MG TAB.SR.24H (FP) PO SCH (09:21)
--- NOTE | 2020-06-10 12:46 | PN ---
Teaching Attending Note Name of Resident: Goldy Werner ATTENDING PHYSICIAN STATEMENT I saw and evaluated the patient. I reviewed the resident's note and discussed the case with the resident. I agree with the resident's findings and plan as documented. SUBJECTIVE: Seen and examined at bedside. No complaints. Medically cleared for discharge pending clearance from thoracic surgery. OBJECTIVE: Last Vital Signs Temp Pulse Resp BP Pulse Ox 98.4 F 109 H 19 134/76 96 06/10/20 09:18 06/10/20 09:18 06/10/20 09:18 06/10/20 09:18 06/10/20 10:00 PE: Per resident note Labs/Imaging: reviewed ASSESSMENT AND PLAN: 59-year-old female with a past medical history of hyperlipidemia, lung adenocar cinoma status post left upper lobe wedge resection and left lower lobe resection presents with left hydropneumothorax after being referred by Dr. Shankar. Patient is now status post Pleurx catheter #Left hydropneumothorax Status post Pleurx catheter placed 06/07/2020 Pulmonary and thoracic surgery on board: Recommendations appreciated Continue to monitor vital signs off oxygen -will discuss disposition plans with pulm/thoracic surgery #Hypertension Continue metoprolol Hyperlipidemia Continue home atorvastatin
--- NOTE | 2020-06-10 13:15 | PN ---
Progress Note (short form) - Note Progress Note: PULMONARY Minimal drainage from pleur-x. No shortness of breath or chest pain. Wants to go home. Vital Signs Period Temp Pulse Resp BP Sys/Gonzalez Pulse Ox Last 24 Hr 97.9 F-98.4 F 72-109 19-20 104-136/56-76 95-96 Gen: NAD at rest Heart: RRR Lung:decreased breath sounds left base Abd: soft, nontender Ext: no edema Chest tube: no air leak CBC, BMP 06/10/20 06:37 06/10/20 06:37 Active Medications Acetaminophen (Tylenol -) 650 mg PO Q6H PRN PRN Reason: PAIN 1-3 Last Admin: 06/08/20 21:26 Dose: 650 mg Documented by: Atorvastatin Calcium (Lipitor -) 10 mg PO HS [facility] Last Admin: 06/09/20 22:00 Dose: 10 mg Documented by: Cholecalciferol (Vitamin D3 -) 1,000 unit PO DAILY [facility] Last Admin: 06/10/20 09:20 Dose: 1,000 unit Documented by: Metoprolol Succinate (Toprol Xl -) 12.5 mg PO DAILY [facility] Last Admin: 06/10/20 09:21 Dose: 12.5 mg Documented by: Potassium Chloride (K-Dur -) 20 meq PO BID [facility] Last Admin: 06/10/20 09:20 Dose: 20 meq Documented by: A/P Hydropneumothorax Lung Ca s/p KYRA wedge resection/LLL lobectomy Malignant Pleural Effusion HTN Hyperlipidemia - monitor chest tube output - can be discharged home from pulmonary standpoint with VNS - likely will need weekly drainage
--- NOTE | 2020-06-10 17:20 | DS ---
Physical Exam: SUBJECTIVE: Patient seen and examined Patient was examined at bed side. Patient was comfortable and breathing well after surgery. Spoken to about VNS setting up the pleurovac at home and capping through IR. OBJECTIVE: Vital Signs Period Temp Pulse Resp BP Sys/Gonzalez Pulse Ox Last 24 Hr 98.1 F-98.4 F 72-109 19-20 104-136/56-76 95-96 PHYSICAL EXAM GENERAL: The patient is awake, alert, and fully oriented, in no acute distress. HEAD: Normal with no signs of trauma. EYES: PERRL, extraocular movements intact, sclera anicteric, conjunctiva clear. ENT: Ears normal, nares patent, oropharynx clear without exudates, moist mucous membranes. NECK: Trachea midline, full range of motion, supple. LUNGS: Breath sounds equal, clear to auscultation bilaterally, no wheezes, no crackles, no accessory muscle use. HEART: Regular rate and rhythm, S1, S2 without murmur, rub or gallop. EXTREMITIES: 2+ pulses, warm, well-perfused, no edema. PSYCH: Normal mood, normal affect. SKIN: Warm, dry, normal turgor, no rashes or lesions noted. LABS Laboratory Results - last 24 hr 06/10/20 06/10/20 06:37 06:37 WBC 8.1 RBC 4.97 Hgb 13.9 Hct 42.0 MCV 84.6 MCH 28.0 MCHC 33.1 RDW 14.2 Plt Count 282 MPV 9.6 Absolute Neuts (auto) 5.9 Neutrophils % 72.2 Lymphocytes % 15.9 D Monocytes % 8.1 Eosinophils % 3.4 Basophils % 0.4 Nucleated RBC % 0 Sodium 142 Potassium 4.1 Chloride 108 H Carbon Dioxide 28 Anion Gap 7 L BUN 16.6 Creatinine 0.5 L Est GFR (CKD-EPI)AfAm 121.92 Est GFR (CKD-EPI)NonAf 105.20 Random Glucose 78 Calcium 8.4 L Phosphorus 3.0 Magnesium 1.8 Total Bilirubin 0.4 AST 14 L ALT 13 Alkaline Phosphatase 94 Total Protein 5.4 L Albumin 2.6 L HOSPITAL COURSE: Date of Admission:06/06/20 Sai is a 70F w h/o of HTN, HLD, DM 2, recently diagnosed MM (sees Dr. Duenas), presented to the hospital with referral from her new store merchandiser, Dr. Santiago for new CT findings of progressive Left hydropneumothorax. CT and CXR was positive for progressive Left hydropneumothorax. Patient was also suffering from trapped lung due to hemopneumothorax accumulation. Dr. Rubi, IR, was Consulted by Dr. Carreon. She is scheduled for a Pleurx insertion the following day 06/07/2020. The patients drainage was monitored as well as her labs and vitals. IR and thoracic were consulted approved the patient for discharge. IR and thoracic recommended with VNS services to help patient set up pleurvac at home. IR was brought in to cap the device for home transport and VNS was sent to the residents home to set up the device. Minutes to complete discharge: 40 Discharge Summary Problems reviewed: Yes Reason For Visit: MALIGNANT NEOPLASM OF LUNG Current Active Problems Malignant pleural effusion (Chronic) Trapped lung (Chronic) Condition: Good - Instructions Diet, Activity, Other Instructions: YOUR VISIT: You were admitted to the hospital for fluid and air around your lungs. While you were in the hospital we evaluated you with lab work, blood work, and imaging including a chest xray that showed fluid and air around your left lung cavity. We found that your symptoms were caused by your lung cancer which causes a build up of fluid in the lungs. You were evaluated by our pulmonolgist Dr. Anderson during your hospital course. You were also evaluated by the thoracic surgeon, who placed a tube that will help drain the fluid from your lungs and improve your quality of breathing. While you were here you were treated with tylenol and heart medications. You will be sent home with your chest tube safely capped and dressed. We will sent to your home the drainage bottles for your chest tube. Visiting nursing services will help set up the drain for you at home. You will need to follow up with your store merchandiser, Dr. Anderson and interventional radiologist, Dr. Lal within 1 week for further evaluation of the drainage tube. MEDICATIONS: Please continue taking your home medications as prescribed. FOLLOW UP: Please follow up with Dr. Lal, the Interventional radiologist, within 1 week for further evaluation of your chest drainage tube. Please follow up with Dr. Guallpa (Heme/oncology) in 1 week as outpatient. Please follow up with Dr. Rubi (thoracic surgery) in 1 week to evaluate your surgical procedure Please follow up with Dr. Anderson (pulmonology) in 1 week to evaluate your lung functions. Please follow up with Dr. Dr. Indu Chao (primary care provider) in 1 week to follow up with your overall health ADDITIONAL INSTRUCTIONS: You are being discharged home with visiting nursing services to aid you with the pleurovac. Please return to the emergency department if you are experiencing any worsening shortness of breath, chest pain, trouble breathing, fever, chills, or any new or concerning symptoms. Referrals: John Paul Anderson MD [Staff Physician] - 1 Week Brianna Griggs MD [Staff Physician] - 1 Week Greg Lal MD [Staff Physician] - 1 Week (Chest tube evaluation) Selin Guallpa MD [Staff Physician] - 1 Week Jesse Rubi MD [Staff Physician] - 1 Week Disposition: VNS/HOME HEALTH CARE - Home Medications Comprehensive Discharge Medication List: Ambulatory Orders Atorvastatin Ca [Lipitor] 10 mg PO HS tablet 04/09/14 Cholecalciferol (Vitamin D3) [Vitamin D3 -] 1,000 units PO DAILY 06/14/17 Aspirin 81 mg PO DAILY 02/21/18 Cetirizine HCl [Zyrtec -] 10 mg PO DAILY 06/06/20 Potassium Chloride [K-Dur -] 20 meq PO BID 06/06/20 Guaifenesin AC [Robitussin AC -] 2 tsp PO TID PRN 06/07/20 Montelukast Na [Singulair -] 10 mg PO DAILY 06/07/20 Metoprolol Succinate 25 mg PO DAILY 06/10/20 ATTENDING PHYSICIAN STATEMENT I saw and evaluated the patient. I reviewed the resident's note and discussed the case with the resident. I agree with the resident's findings and plan as documented. SUBJECTIVE: OBJECTIVE: ASSESSMENT AND PLAN:
[2020-06-10 17:23] VITALS: BP 125/66; PULSE 99; TEMP 97.9
--- NOTE | 2020-06-10 20:06 | CON.CARD ---
Consult Consult Specialty:: Cardiology - History of Present Illness History of Present Illness: 59 y/o F with hx of HLD and lung adenocarcinoma s/p left lower lobectomy BIBEMS from Dr Santiago's office for CT findings of pnx. Patient developed cough few weeks ago and had CT which showed left hemithorax massive effusion and received throacentesis by Dr Carreon last week and followup CT showed hydropneumothorax. Patient is symptomatic and denies chest pain, fever, chills, SOB. She still has a cough. - History Source History Provided By: Patient, Medical Record - Alcohol/Substance Use Hx Alcohol Use: No - Smoking History Smoking history: Never smoked Have you smoked in the past 12 months: No Home Medications - Allergies Allergies/Adverse Reactions: Allergies Allergy/AdvReac Type Severity Reaction Status Date / Time No Known Allergies Allergy Unverified 06/06/20 15:16 - Home Medications Home Medications: Ambulatory Orders Atorvastatin Ca [Lipitor] 10 mg PO HS tablet 04/09/14 Cholecalciferol (Vitamin D3) [Vitamin D3 -] 1,000 units PO DAILY 06/14/17 Aspirin 81 mg PO DAILY 02/21/18 Cetirizine HCl [Zyrtec -] 10 mg PO DAILY 06/06/20 Potassium Chloride [K-Dur -] 20 meq PO BID 06/06/20 Guaifenesin AC [Robitussin AC -] 2 tsp PO TID PRN 06/07/20 Montelukast Na [Singulair -] 10 mg PO DAILY 06/07/20 Metoprolol Succinate 25 mg PO DAILY 06/10/20 Review of Systems - Review of Systems Constitutional: reports: No Symptoms Eyes: reports: No Symptoms HENT: reports: No Symptoms Neck: reports: No Symptoms Cardiovascular: reports: No Symptoms Gastrointestinal: reports: No Symptoms Genitourinary: reports: No Symptoms Breasts: reports: No Symptoms Reported Musculoskeletal: reports: No Symptoms Integumentary: reports: No Symptoms Neurological: reports: No Symptoms Endocrine: reports: No Symptoms Hematology/Lymphatic: reports: No Symptoms Psychiatric: reports: No Symptoms Vital Signs: Vital Signs Temperature 97.9 F 06/10/20 17:08 Pulse Rate 99 H 06/10/20 17:08 Respiratory Rate 18 06/10/20 17:08 Blood Pressure 125/66 06/10/20 17:08 O2 Sat by Pulse Oximetry (%) 96 06/10/20 10:00 Constitutional: Yes: Well Nourished, No Distress, Calm Eyes: Yes: WNL, Conjunctiva Clear, EOM Intact HENT: Yes: WNL, Atraumatic, Normocephalic Neck: Yes: WNL, Supple, Trachea Midline Respiratory: Yes: Diminished Gastrointestinal: Yes: WNL, Normal Bowel Sounds Renal/: Yes: WNL Cardiovascular: Yes: WNL, Regular Rate and Rhythm Musculoskeletal: Yes: WNL Extremities: Yes: WNL Integumentary: Yes: WNL Neurological: Yes: WNL, Alert, Oriented ...Motor Strength: WNL Psychiatric: Yes: WNL, Alert, Oriented - Other Data Labs, Other Data: CBC, BMP 06/10/20 06:37 06/10/20 06:37 INR, PTT INR 1.08 (0.83-1.09) 06/06/20 15:50 Imaging - Results Chest X-ray: Image Reviewed (l pleural effusion) EKG: Image Reviewed (s tachy) Problem List - Problems (1) Chronic diastolic (congestive) heart failure Code(s): I50.32 - CHRONIC DIASTOLIC (CONGESTIVE) HEART FAILURE (2) Lung cancer Code(s): C34.90 - MALIGNANT NEOPLASM OF UNSP PART OF UNSP BRONCHUS OR LUNG (3) Malignant pleural effusion Code(s): J91.0 - MALIGNANT PLEURAL EFFUSION (6) Sinus tachycardia Code(s): R00.0 - TACHYCARDIA, UNSPECIFIED (7) Trapped lung Code(s): J98.19 - OTHER PULMONARY COLLAPSE (8) Anxiety Code(s): F41.9 - ANXIETY DISORDER, UNSPECIFIED (9) Lung mass Code(s): R91.8 - OTHER NONSPECIFIC ABNORMAL FINDING OF LUNG FIELD (10) Pneumothorax Code(s): J93.9 - PNEUMOTHORAX, UNSPECIFIED (11) Right kidney stone Code(s): N20.0 - CALCULUS OF KIDNEY Assessment/Plan 59 y/o F with hx of HLD and lung adenocarcinoma s/p left lower lobectomy BIBEMS from Dr Santiago's office for CT findings of pnx. Patient developed cough few weeks ago and had CT which showed left hemithorax massive effusion and received throacentesis by Dr Carreon last week and followup CT showed hydropneumothorax. A/P Hydropneumothorax Lung Ca s/p KYRA wedge resection/LLL lobectomy Malignant Pleural Effusion HTN Hyperlipidemia Plan; Cont supportive rx DVT plx
--- NOTE | 2020-06-10 20:10 | PN ---
Progress Note, Physician History of Present Illness: 59 y/o F with hx of HLD and lung adenocarcinoma s/p left lower lobectomy BIBEMS from Dr Santiago's office for CT findings of pnx. Patient developed cough few weeks ago and had CT which showed left hemithorax massive effusion and received throacentesis by Dr Carreon last week and followup CT showed hydropneumothorax. Patient is symptomatic and denies chest pain, fever, chills, SOB. She still has a cough. - Objective Vital Signs: Vital Signs Temperature 97.9 F 06/10/20 17:08 Pulse Rate 99 H 06/10/20 17:08 Respiratory Rate 18 06/10/20 17:08 Blood Pressure 125/66 06/10/20 17:08 O2 Sat by Pulse Oximetry (%) 96 06/10/20 10:00 Eyes: Yes: WNL, Conjunctiva Clear, EOM Intact HENT: Yes: WNL, Atraumatic, Normocephalic Neck: Yes: WNL, Supple, Trachea Midline Cardiovascular: Yes: WNL, Regular Rate and Rhythm Respiratory: Yes: Diminished Gastrointestinal: Yes: WNL, Normal Bowel Sounds Genitourinary: Yes: WNL Musculoskeletal: Yes: WNL Extremities: Yes: WNL Edema: No Integumentary: Yes: WNL Neurological: Yes: WNL, Alert, Oriented ...Motor Strength: WNL Psychiatric: Yes: WNL Labs: CBC, BMP 06/10/20 06:37 06/10/20 06:37 INR, PTT INR 1.08 (0.83-1.09) 06/06/20 15:50 Problem List - Problems (1) Chronic diastolic (congestive) heart failure Code(s): I50.32 - CHRONIC DIASTOLIC (CONGESTIVE) HEART FAILURE (2) Lung cancer Code(s): C34.90 - MALIGNANT NEOPLASM OF UNSP PART OF UNSP BRONCHUS OR LUNG (3) Malignant pleural effusion Code(s): J91.0 - MALIGNANT PLEURAL EFFUSION (6) Sinus tachycardia Code(s): R00.0 - TACHYCARDIA, UNSPECIFIED (7) Trapped lung Code(s): J98.19 - OTHER PULMONARY COLLAPSE (8) Anxiety Code(s): F41.9 - ANXIETY DISORDER, UNSPECIFIED (9) Lung mass Code(s): R91.8 - OTHER NONSPECIFIC ABNORMAL FINDING OF LUNG FIELD (10) Pneumothorax Code(s): J93.9 - PNEUMOTHORAX, UNSPECIFIED (11) Right kidney stone Code(s): N20.0 - CALCULUS OF KIDNEY Assessment/Plan 59 y/o F with hx of HLD and lung adenocarcinoma s/p left lower lobectomy BIBEMS from Dr Santiago's office for CT findings of pnx. Patient developed cough few weeks ago and had CT which showed left hemithorax massive effusion and received throacentesis by Dr Carreon last week and followup CT showed hydropneumothorax. A/P Hydropneumothorax Lung Ca s/p KYRA wedge resection/LLL lobectomy Malignant Pleural Effusion HTN Hyperlipidemia Plan; Cont supportive rx DVT plx
== END 2020-06-10 18:00 | disposition home health service (06) | DRG 143 ==
LOC: JER 14:50 → JERBED 19:06 → J4S 23:12
PROVIDERS: ADMIT Internal Medicine; ATTEND Internal Medicine
PROC: 0W9B30Z Drainage of Left Pleural Cavity with Drainage Device, Percutaneous Approach (ICD-10-PCS; principal; 2020-06-07)
DX: J93.83 Other pneumothorax (principal); J91.0 Malignant pleural effusion; I50.32 Chronic diastolic (congestive) heart failure; E88.09 Other disorders of plasma-protein metabolism, not elsewhere classified; C34.90 Malignant neoplasm of unspecified part of unspecified bronchus or lung; J98.19 Other pulmonary collapse; E78.5 Hyperlipidemia, unspecified; F41.9 Anxiety disorder, unspecified; N20.0 Calculus of kidney
CPT/HCPCS: 32550; 36415; 71045-TC-FY; 76098-TC-FY; 76604; 76998-TC; 80053; 81003; 82550; 83036; 83735; 84100; 84484; 85025; 85610; 85730; 86850; 86900; 86901; 87070; 87075; 87205; 87899; 93005; 93010; 93308; 99285-25; C1729; C1769; C1894; U0003

== ENCOUNTER → 2020-08-15 | Day surgery (SDC) | payer OTHER | END | disposition home or self-care (01) | LOC: JRADIR 13:07 | PROVIDERS: ATTEND Internal Medicine Hematology & Oncology | PROC: 0WPB03Z Removal of Infusion Device from Left Pleural Cavity, Open Approach (ICD-10-PCS; principal; 2020-08-15) | DX: J90 Pleural effusion, not elsewhere classified (principal); C34.90 Malignant neoplasm of unspecified part of unspecified bronchus or lung | CPT/HCPCS: 32552; 71045-TC-FY ==

== ENCOUNTER 2020-08-17 17:42 | Inpatient (IN) | payer OTHER ==
--- NOTE | 2020-08-17 17:58 | PDOC ---
History of Present Illness - General Chief Complaint: SIRS, Suspected/Possible Stated Complaint: FEVER Time Seen by Provider: 08/17/20 17:57 History Source: Patient Exam Limitations: No Limitations - History of Present Illness Initial Comments: 08/17/20 17:57 Latoya Gibbs is a 59F with PMH lung CA followed by Dr. Smallwood s/p chemo, now on Tangrisso s/p chest tube removal 2 days ago for pleural effusion, HTN, HLD, GERD presenting with fever to 102F. Patient had SOB in May, diagnosed with atelectasis/pleural effusion, chest tube placed in left back with Dr. Avalos. Last week patient had no more output in the chest tube, was removed by Dr. Avalos 2 days ago. Post-removal CXR shows left lung base atelectasis vs. infiltrate. Since then patient has been having nightly fever to 101-102F. Denies any palpitations, SOB, productive cough, nausea, vomiting, chest pain, abd pain, urinary sx. Wound bandaged, told not to remove dressing for one week until follow-up in 3 days, has been having pain and itching due to allergy to tape used. Came to ED for evaluation as Dr. Smallwood told her to come for any fevers. Has completed courses of chemo in the past. Takes tyrosine kinase inhibitor Tangrisso (osimertinib) daily. Tolerating PO, ate waffles for lunch. Past History - Medical History Allergies/Adverse Reactions: Allergies Allergy/AdvReac Type Severity Reaction Status Date / Time No Known Allergies Allergy Verified 08/17/20 17:59 Home Medications: Ambulatory Orders Atorvastatin Ca [Lipitor] 10 mg PO HS tablet 04/09/14 Cholecalciferol (Vitamin D3) [Vitamin D3 -] 1,000 units PO DAILY 06/14/17 Aspirin 81 mg PO DAILY 02/21/18 Potassium Chloride [K-Dur -] 20 meq PO BID 06/06/20 Metoprolol Succinate 50 mg PO DAILY 06/10/20 Acetaminophen [Tylenol] 650 mg PO QID PRN 08/17/20 Ascorbate Calcium [Vitamin C] 500 mg PO DAILY 08/17/20 Magnesium Oxide [Mag-Oxide] 200 mg PO DAILY 08/17/20 Omeprazole 20 mg PO DAILY 08/17/20 Osimertinib Mesylate [Tagrisso] 80 mg PO DAILY 08/17/20 Anemia: No Asthma: No Cancer: Yes (left lung ca with thoracotomy 12/2017) Cardiac Disorders: No CVA: No COPD: No CHF: No Dementia: No Diabetes: No GI Disorders: No Disorders: Yes (kidney stones) HTN: No Hypercholesterolemia: Yes Liver Disease: No Seizures: No Thyroid Disease: No - Surgical History Abdominal Surgery: No Appendectomy: No Cardiac Surgery: No Cholecystectomy: No Lung Surgery: Yes Neurologic Surgery: No Orthopedic Surgery: No - Psycho-Social/Smoking History Smoking History: Never smoked Have you smoked in the past 12 months: No Review of Systems - Review of Systems Able to Perform ROS?: Yes Constitutional: Yes: Chills, Fever HEENTM: No: Symptoms Reported Respiratory: No: Cough, Shortness of Breath, SOB with Exertion, SOB at Rest, Wheezing, Productive cough Cardiac (ROS): No: Symptoms Reported ABD/GI: No: Nausea, Poor Appetite, Poor Fluid Intake, Vomiting : No: Symptoms Reported Musculoskeletal: No: Symptoms Reported Integumentary: No: Symptoms Reported Neurological: No: Symptoms reported Endocrine: No: Symptoms Reported Hematologic/Lymphatic: No: Symptoms Reported All Other Systems: Reviewed and Negative *Physical Exam - Physical Exam General Appearance: Yes: Nourished, Appropriately Dressed, Thin, Other (in NAD, resting in bed, but feels very warm). No: Apparent Distress HEENT: positive: EOMI, SASCHA, Normal Voice, Symmetrical. negative: Pharynx Normal (very dry), Scleral Icterus (R), Scleral Icterus (L), Pharyngeal Eryt rigoberto, Tonsillar Exudate, Tonsillar Erythema Neck: positive: Trachea midline, Normal Thyroid, Supple. negative: Tender, Rigid, Lymphadenopathy (R), Lymphadenopathy (L) Respiratory/Chest: positive: Chest Tender (pain in region of chest tube site left flank mid ribs), Rapid RR, Decreased Breath Sounds (left lung from mid to base). negative: Lungs Clear, Respiratory Distress, Accessory Muscle Use, Labored Respiration, Crackles, Rales, Rhonchi, Stridor, Wheezing Cardiovascular: positive: Regular Rhythm, Tachycardia. negative: Murmur Gastrointestinal/Abdominal: positive: Normal Bowel Sounds, Flat. negative: Tender, Organomegaly, Pulsatile Mass, Guarding, Rebound Musculoskeletal: positive: Normal Inspection. negative: CVA Tenderness, Decreased Range of Motion Extremity: positive: Normal Capillary Refill, Normal Inspection, Normal Range of Motion, Pelvis Stable. negative: Tender, Swelling, Calf Tenderness, Erythema Integumentary: positive: Warm, Swelling, Other (has erythema around chest tube site with tape over dressing, once dressing removed has swelling pus draining from puctate wound and small lesion with serosang discharge 5cm anterior, soft tissue swelling around region) Neurologic: positive: Fully Oriented, Alert, Normal Mood/Affect, Normal Response ED Treatment Course - LABORATORY CBC & Chemistry Diagram: 08/17/20 18:15 08/17/20 18:15 - RADIOLOGY Radiograph Interpretation: 08/17/20 21:13 Order Type: Preliminary Name: BETZY KLEIN Sex: F Study Description: CT CHEST Modality: CT Location: [facility] Referring Physician: INOCENCIA GALLOWAY Comments: Diego Harkins MD wrote on Aug 17, 2020 at 08:19 PM: Referring Physician: INOCENCIA GALLOWAY Patient Name: LATOYA GIBBS PRELIMINARY REPORT FROM [facility] EXAM: CT chest without contrast DATE: 2020-08-17 19:11:26 IMAGES: 526 HISTORY: FEVER IMPRESSION: Small left nephrolithiasis image 103/104. Left pleural effusion, with loculated components at upper chest anterior, and lower chest posterior (up to 7 cm). Suspect empyema. Adjacent infiltrate seen at left base, with some calcifications or post surgical change seen. Medical Decision Making - Medical Decision Making 08/17/20 17:58 Patient has known history of lung CA not on chemo on Tagrisso presenting with fever to 102F at home after chest tube removal with obvious skin infection with pus drainage and CXR two days ago showing infiltrate vs. atelectasis to left lower lung. Concerned for soft tissue infection and PNA, less likely colitis or UTI. Tachycardic with rectal temp 102.8, but asymptomatic. Ordering sepsis labs, BC, UC, ECG. Getting CT chest for evaluation of chest tube removal and PNA given recent CXR. ECG sinus tachycardia with HR 122, QTc 444, no PAUL/D or TWI. Giving vancomycin 500mg, cefepime 1000mg, Ofirmev 1000mg, and 30cc/kg IV NS. Dressing replaced with gauze and Tegederms. COVID-19 sent. 08/17/20 18:53 Labs notable for: - VBG 7.428 - WBC 9.3, ANC 7900, not neutropenic - CMP WNL 08/17/20 21:13 CT chest left pleural effusion with loculated components, suspected empyema. 08/17/20 23:[address] Zamora, accepts for admission to Med/Surg under her service. Discharge - Discharge Information Problems reviewed: Yes Clinical Impression/Diagnosis: Soft tissue infection Fever Qualifiers: Fever type: unspecified Qualified Code(s): R50.9 - Fever, unspecified Lung cancer Qualifiers: Laterality: unspecified laterality Lung location: unspecified part of lung Qualified Code(s): C34.90 - Malignant neoplasm of unspecified part of unspecified bronchus or lung Condition: Guarded - Admission Yes - Follow up/Referral Referrals: Brianna Griggs MD [Primary Care Provider] - - Patient Discharge Instructions - Post Discharge Activity
[2020-08-17] MEDS ORDERED: SODIUM CHLORIDE 1,225 ML IV ONE (18:09)
[2020-08-17] MEDS ORDERED: CEFEPIME HCL/D5W 1 GM/50 ML BAG IVPB ONE (18:39)
[2020-08-17] MEDS ORDERED: VANCOMYCIN IVPB ONE (18:39)
[2020-08-17] MEDS ORDERED: WATER IVPB ONE (18:39)
[2020-08-17] MEDS ORDERED: DEXTROSE 5% IVPB ONE (18:39)
[2020-08-17] MEDS ORDERED: ACETAMINOPHEN 1000 MG/100 ML VIAL (NON FORMULARY) IVPB ONE (18:39)
[2020-08-17] MEDS ORDERED: ACETAMINOPHEN INJECTION 100 ML IVPB ONE (18:41)
[2020-08-17] MEDS ORDERED: CEFEPIME 1 GM/100 ML BAG IVPB ONE (18:42)
[2020-08-17 18:44] LABS: VENOUS BASE EXCESS -0.5 mmol/L (-2-2); VENOUS O2 SATURATION 77.3 % (70-80); VENOUS PCO2 36.4 mmHg (38-52); VENOUS PH 7.428 (7.310-7.410)
[2020-08-17] MEDS ORDERED: VANCOMYCIN 500 MG in DEXTROSE 5%-WATER - 100 ML IVPB ONE (18:44)
--- NOTE | 2020-08-17 18:44 | PDOC ---
Documentation entered by Meche Carter SCRIBE, acting as scribe for Heidi De Jesus DO. Heidi De Jesus DO: This documentation has been prepared by the aideibe, Meche Carter SCRIBE, under my direction and personally reviewed by me in its entirety. I confirm that the documentation accurately reflects all work, treatment, procedures, and medical decision making performed by me. Attending Attestation - Resident Resident Name: Unruly Grimaldo - ED Attending Attestation I have performed the following: I have examined & evaluated the patient, The case was reviewed & discussed with the resident, I agree w/resident's findings & plan, Exceptions are as noted - HPI HPI: 08/17/20 18:31 The patient is a 59-year-old female with a past medical history significant for HTN, HLD, GERD, Lung CA (follows Dr. Smallwood) who presents to the emergency department with a fever of 102. The patient is s/p chest tube removal 2 days ago, which was placed in May for pleural effusion. The patient presents with a fever, denies a cough. Allergies: NKA Social history: No tobacco, alcohol, or recreational drug use reported. PCP: Dr. Kylie Griggs Hemo/Onc: Dr. Smallwood - Physicial Exam PE: 08/17/20 18:37 gen: aaox3, nad, warm to touch heart: +s1s2 tachy back/chest wall: chest tube site with purulent drainage and pustules surrounding, soft tissue induration and boggy, warm, no ttp, erythema at the site, soft tissue swelling at the site lungs: diminished bs L midlung and base, otherwise clear abd: soft, nt/nd +bs ext: no c/c/e - Medical Decision Making 08/17/20 18:38 a/p: 59yo female with hx of lung ca who had a chest tube removed [address] Avalos -pt with a fever since yesterday, 102 was max -pt denies cough or sob -pt with dressing in place from chest tube to her back with warmth, redness, purulent drainage from the site, and with soft tissue swelling at the site -will send sepsis labs and start broad spectrum abx -cultures sent -concern for pna on cxr (seen 2 days ago along with pleural effusion and atelectasis) and for abscess to her back -ct chest ordered -tylenol given for 102.8 temp -will need admission -onc is Dr. Smallwood 08/17/20 18:50 pt signed out to the oncoming ed physician pending labs and admission Heart Score/ECG Review - ECG Intrepretation Comment:: 08/17/20 18:43 sinus tach at 122, nl axis, tremulous baseline, nl interval, no acute st/t wave findings, abnl ekg Discharge - Discharge Information Problems reviewed: Yes Clinical Impression/Diagnosis: Fever, Soft tissue infection Condition: Guarded - Admission Yes - Follow up/Referral Referrals: Brianna Griggs MD [Primary Care Provider] - - Patient Discharge Instructions - Post Discharge Activity
[2020-08-17 18:50] LABS: BASO % 0.2 % (0-2.0); EOS % 0.1 % (0-4.5); HEMATOCRIT 32.4 % (32.4-45.2); HEMOGLOBIN 10.7 GM/dL (10.7-15.3); LYMPH % 5.5 % (8-40); MCH 27.1 pg (25.7-33.7); MCHC 33.1 g/dl (32.0-36.0); MONO % 9.4 % (3.8-10.2); NEUT % 84.8 % (42.8-82.8); PLATELET COUNT 194 K/MM3 (134-434); RBC 3.96 M/mm3 (3.60-5.2); RDW 15.4 % (11.6-15.6); WHITE BLOOD COUNT 9.3 K/mm3 (4.0-10.0)
[2020-08-17 18:59] LABS: INR 1.25 (0.83-1.09); PROTHROMBIN TIME (PATIENT) 14.8 SEC (9.7-13.0)
[2020-08-17 19:01] LABS: ACTIVATED PTT 30.9 SECONDS (25.2-36.5)
[2020-08-17 19:23] LABS: ALBUMIN 2.5 g/dl (3.4-5.0); ANION GAP 9 MMOL/L (8-16); BLOOD UREA NITROGEN 17.4 mg/dL (7-18); CALCIUM 8.1 mg/dL (8.5-10.1); CHLORIDE 103 mmol/L (98-107); CO2 26 mmol/L (21-32); CREATININE 0.7 mg/dL (0.55-1.3); GLUCOSE,RANDOM 103 mg/dL (74-106); POTASSIUM 4.1 mmol/L (3.5-5.1); SGOT/AST 50 U/L (15-37); SGPT/ALT 53 U/L (13-61); SODIUM 137 mmol/L (136-145); TOT PROT 6.1 g/dl (6.4-8.2)
[2020-08-17 20:08] LABS: ALK PHOS 177 U/L (45-117); BILIRUBIN,TOTAL 0.5 mg/dL (0.2-1)
[2020-08-17 21:15] LABS: URINE APPEARANCE CLEAR; URINE BILIRUBIN NEGATIVE (NEGATIVE); URINE COLOR YELLOW; URINE GLUCOSE (UA) NEGATIVE (NEGATIVE); URINE KETONE TRACE (NEGATIVE); URINE LEUK ESTERASE NEGATIVE (NEGATIVE); URINE NITRITE NEGATIVE (NEGATIVE); URINE PROTEIN NEGATIVE (NEGATIVE); URINE UROBILINOGEN 0.2 mg/dL (0.2-1.0)
--- NOTE | 2020-08-17 22:18 | HP ---
Admitting History and Physical - Primary Care Physician PCP: Dr. Griggs - Admission Chief Complaint: Fever History of Present Illness: 59-year-old female with a past medical history significant for HTN, HLD, GERD, Lung CA (follows Dr. Smallwood) who presents to the emergency department with complaints of a fever of 102. The patient is s/p chest tube removal 2 days ago, which was placed in May for pleural effusion. The patient presents with a fever, but denies a cough. No changes in urinary habits, also denies nausea, vomiting, or diarrhea. Denies recent travel ED course WBC normal = 9.3 - UA results noted to be negative -Concern for pneumonia on cxr (seen 2 days ago along with pleural effusion and atelectasis) and for abscess to her back -CT chest ordered - Patient was given cefepime/vancomycin in ED PMHx: As noted above Allergies: NKA Social history: No tobacco, alcohol, or recreational drug use reported. PCP: Dr. Kylie Griggs Hemo/Onc: Dr. Smallwood History Source: Patient Limitations to Obtaining History: No Limitations - Past Medical History Cardiovascular: Yes: HTN, Hyperlipdemia Gastrointestinal: Yes: GERD - Smoking History Smoking history: Never smoked Have you smoked in the past 12 months: No - Alcohol/Substance Use Hx Alcohol Use: No History of Substance Use: reports: None - Social History Usual Living Arrangement: Yes: Alone Home Medications - Allergies Allergies/Adverse Reactions: Allergies Allergy/AdvReac Type Severity Reaction Status Date / Time No Known Allergies Allergy Verified 08/17/20 17:59 - Home Medications Home Medications: Ambulatory Orders Atorvastatin Ca [Lipitor] 10 mg PO HS tablet 04/09/14 Cholecalciferol (Vitamin D3) [Vitamin D3 -] 1,000 units PO DAILY 06/14/17 Aspirin 81 mg PO DAILY 02/21/18 Potassium Chloride [K-Dur -] 20 meq PO BID 06/06/20 Metoprolol Succinate 50 mg PO DAILY 06/10/20 Acetaminophen [Tylenol] 650 mg PO QID PRN 08/17/20 Ascorbate Calcium [Vitamin C] 500 mg PO DAILY 08/17/20 Magnesium Oxide [Mag-Oxide] 200 mg PO DAILY 08/17/20 Omeprazole 20 mg PO DAILY 08/17/20 Osimertinib Mesylate [Tagrisso] 80 mg PO DAILY 08/17/20 Family Medical History Family History: Denies Review of Systems - Review of Systems Constitutional: reports: Fever Eyes: reports: No Symptoms HENT: reports: No Symptoms Neck: reports: No Symptoms Cardiovascular: reports: No Symptoms Respiratory: reports: No Symptoms Gastrointestinal: reports: No Symptoms Genitourinary: reports: No Symptoms Physical Examination Vital Signs: Vital Signs Temperature 102.8 F H 08/17/20 18:40 Pulse Rate 110 H 08/17/20 19:57 Respiratory Rate 18 08/17/20 19:57 Blood Pressure 92/56 L 08/17/20 19:57 O2 Sat by Pulse Oximetry (%) 98 08/17/20 19:57 Constitutional: Yes: Well Nourished, No Distress, Calm, Pallor Eyes: Yes: Conjunctiva Clear, EOM Intact HENT: Yes: WNL, Atraumatic, Normocephalic Neck: Yes: WNL, Supple, Trachea Midline Cardiovascular: Yes: WNL, Regular Rate and Rhythm Respiratory: Yes: WNL, Regular, CTA Bilaterally Gastrointestinal: Yes: WNL, Normal Bowel Sounds, Soft Breast(s): Yes: WNL Musculoskeletal: Yes: WNL Extremities: Yes: WNL Edema: No Edema: LUE: 2+, RUE: 2+, LLE: 2+, RLE: 2+ Integumentary: Yes: Rash (Mild rash noted at chest tube site) Neurological: Yes: WNL, Alert, Oriented ...Motor Strength: WNL Psychiatric: Yes: WNL, Alert, Oriented Labs: CBC, BMP 08/17/20 18:15 08/17/20 18:15 Imaging - Results Chest X-ray: Pending Cat Scan: Pending (CT chest read pending) Assessment/Plan 59-year-old female with a past medical history significant for HTN, HLD, GERD, Lung CA (follows Dr. Smallwood) who presents to the emergency department with s/p chest tube removal 2 days ago, which was placed in May for pleural effusion. PLAN # Fever - Admit to medicine - UA results noted to be negative -concern for pna on cxr (seen 2 days ago along with pleural effusion and atelectasis) and for abscess to her back -ct chest ordered -tylenol given for 102.8 temp - Continue for now broad spectrum antibiotic therapy : cefepime/vancomycin - Follow-up blood culture - IV fluid hydration # Hypertension - For now hold BP meds in setting of febrile illness with low-normal blood pressure #Hyperlipidemia - LFTs ok, resume statin # GERD - continue on omeprazole # Lung cancer - follows with Dr. Smallwood DVT prophylaxsis - SQ lovenox daily Visit type - Emergency Visit Emergency Visit: Yes ED Registration Date: 08/17/20 Care time: The patient presented to the Emergency Department on the above date and was hospitalized for further evaluation of their emergent condition. - New Patient This patient is new to me today: Yes Date on this admission: 08/17/20 - Critical Care Critical Care patient: No
[2020-08-17] MEDS: SODIUM CHLORIDE 1,000 ML IV SCH (22:38)
[2020-08-18] MEDS ORDERED: ONDANSETRON 4 MG/2 ML VIAL IVPUSH PRN (00:01)
[2020-08-18 06:28] LABS: HEMATOCRIT 29.7 % (32.4-45.2); HEMOGLOBIN 9.8 GM/dL (10.7-15.3); MCH 26.7 pg (25.7-33.7); MCHC 33.1 g/dl (32.0-36.0); MEAN CELL VOLUME 80.6 fl (80-96); MEAN PLT VOLUME 10.8 fl (7.5-11.1); PLATELET COUNT 191 K/MM3 (134-434); RBC 3.69 M/mm3 (3.60-5.2); RDW 15.3 % (11.6-15.6); WHITE BLOOD COUNT 8.6 K/mm3 (4.0-10.0)
[2020-08-18 06:40] LABS: BLOOD UREA NITROGEN 11.4 mg/dL (7-18); CALCIUM 7.6 mg/dL (8.5-10.1); CREATININE 0.4 mg/dL (0.55-1.3)
[2020-08-18] MEDS ORDERED: ASPIRIN 81 MG CHEWABLE TABLETS ONE (07:24)
[2020-08-18] MEDS ORDERED: ASCORBIC ACID 500 MG TABLET (FP) ONE (07:24)
[2020-08-18] MEDS ORDERED: VANCOMYCIN 1 GRAM (PRE-DOCKED) 1,000 MG/250 ML BAG IVPB ONE (07:25)
[2020-08-18] MEDS ORDERED: PANTOPRAZOLE 20 MG TABLET PO ONE (07:25)
[2020-08-18] MEDS ORDERED: ENOXAPARIN NA (PORCINE) 40 MG/0.4 ML DISP.SYRIN SQ ONE (07:25)
[2020-08-18] MEDS: VANCOMYCIN 1 GM in D5W (PRE-DOCKED) 1,000 MG/250 ML IVPB SCH ×2 (09:00→21:19)
--- NOTE | 2020-08-18 09:12 | CON.ID ---
Consult Consult Specialty:: infectious diseases Referred by:: fernie wells Reason for Consultation:: sepsis,wekaness,fever - History of Present Illness Chief Complaint: fever,weakness History of Present Illness: 59-year-old female with a past medical history significant for HTN, HLD, GERD, Lung CA who presents to the emergency department with complaints of a fever of 102. The patient is s/p chest tube removal 2 days ago, which was placed in May for pleural effusion. The patient presents with a fever, but denies a cough. patient mentions that she feels very weak - History Source History Provided By: Patient Limitations to Obtaining History: No Limitations - Past Medical History Cardio/Vascular: Yes: HTN, Hyperlipdemia Gastrointestinal: Yes: GERD - Alcohol/Substance Use Hx Alcohol Use: No History of Substance Use: reports: None - Smoking History Smoking history: Never smoked Have you smoked in the past 12 months: No Home Medications - Allergies Allergies/Adverse Reactions: Allergies Allergy/AdvReac Type Severity Reaction Status Date / Time No Known Allergies Allergy Verified 08/17/20 17:59 - Home Medications Home Medications: Ambulatory Orders RX: Atorvastatin Ca [Lipitor] 10 mg PO HS tablet 04/09/14 RX: Cholecalciferol (Vitamin D3) [Vitamin D3 -] 2,000 units PO DAILY 06/14/17 RX: Aspirin 81 mg PO DAILY 02/21/18 RX: Potassium Chloride [K-Dur -] 10 meq PO BID 06/06/20 RX: Metoprolol Succinate 50 mg PO DAILY 06/10/20 Acetaminophen [Tylenol] 500 mg PO QID PRN 08/17/20 Ascorbate Calcium [Vitamin C] 500 mg PO BID 08/17/20 Magnesium Oxide [Mag-Oxide] 400 mg PO DAILY 08/17/20 Osimertinib Mesylate [Tagrisso] 80 mg PO DAILY 08/17/20 RX: Omeprazole 20 mg PO DAILY 08/17/20 Review of Systems - Review of Systems Constitutional: reports: Chills, Fever Eyes: reports: No Symptoms HENT: reports: No Symptoms Neck: reports: No Symptoms Cardiovascular: reports: No Symptoms Respiratory: reports: No Symptoms Gastrointestinal: reports: No Symptoms Genitourinary: reports: No Symptoms Musculoskeletal: reports: No Symptoms Integumentary: reports: No Symptoms Neurological: reports: No Symptoms Endocrine: reports: No Symptoms Hematology/Lymphatic: reports: No Symptoms Psychiatric: reports: No Symptoms Physical Exam Vital Signs: Vital Signs Temperature 99.8 F H 08/18/20 06:12 Pulse Rate 122 H 08/18/20 06:12 Respiratory Rate 19 08/18/20 06:12 Blood Pressure 114/50 L 08/18/20 06:12 O2 Sat by Pulse Oximetry (%) 97 08/18/20 06:12 Constitutional: Yes: Well Nourished, Thin Eyes: Yes: Conjunctiva Clear HENT: Yes: Atraumatic, Normocephalic Neck: Yes: Supple, Trachea Midline Cardiovascular: Yes: Regular Rate and Rhythm, S1, S2 Respiratory: Yes: Poor Air Entry (left side) Gastrointestinal: Yes: Normal Bowel Sounds, Soft Musculoskeletal: Yes: WNL Extremities: Yes: WNL Wound/Incision: Yes: Dressing Dry and Intact Neurological: Yes: Alert, Oriented Psychiatric: Yes: Alert, Oriented Labs: CBC, BMP 08/18/20 05:18 08/18/20 05:18 Imaging - Results Cat Scan: Report Reviewed, Image Reviewed Assessment/Plan Problem List - Problems (1) Fever Code(s): R50.9 - FEVER, UNSPECIFIED Qualifiers: Fever type: unspecified Qualified Code(s): R50.9 - Fever, unspecified (2) Lung cancer Code(s): C34.90 - MALIGNANT NEOPLASM OF UNSP PART OF UNSP BRONCHUS OR LUNG Qualifiers: Laterality: unspecified laterality Lung location: unspecified part of lung Qualified Code(s): C34.90 - Malignant neoplasm of unspecified part of unspecified bronchus or lung (3) Malignant pleural effusion Code(s): J91.0 - MALIGNANT PLEURAL EFFUSION plan will start on cefepime consider therapeutic tapping monitor fevers rest as per the team
--- NOTE | 2020-08-18 09:30 | EKG ---
Test Reason : Blood Pressure : / mmHG Vent. Rate : 122 BPM Atrial Rate : 122 BPM P-R Int : 126 ms QRS Dur : 058 ms QT Int : 312 ms P-R-T Axes : 077 073 045 degrees QTc Int : 444 ms SINUS TACHYCARDIA LOW VOLTAGE QRS CANNOT RULE OUT ANTERIOR INFARCT , AGE UNDETERMINED ABNORMAL ECG WHEN COMPARED WITH ECG OF 24-JUN-2020 14:05, NON-SPECIFIC CHANGE IN ST SEGMENT IN INFERIOR LEADS Confirmed by Emily Danielson ([id number]) on 08/18/2020 9:30:06 AM Referred By: Confirmed By:Emily Danielson
[2020-08-18] MEDS ORDERED: CEFEPIME 0.5 GM in DEXTROSE 5%-WATER - 100 ML IVPB SCH (10:00)
--- NOTE | 2020-08-18 10:00 | PN ---
Progress Note (short form) - Note Progress Note: Subjective: she feels better , dry mouth , cough. no cp , has rash at site of the CT. no abd pain, diarrhea, or cp . No abd pain. CT was removed 3 days ago. she denies previous PNA. L lung cancer was diagnosed 2 yrs ago and received chemo then. No Sx. Objective: Vital Signs: Last Vital Signs Temp Pulse Resp BP Pulse Ox 99.8 F H 122 H 19 114/50 L 97 08/18/20 06:12 08/18/20 06:12 08/18/20 06:12 08/18/20 06:12 08/18/20 06:12 Laboratory Results - last 24 hr 08/17/20 08/17/20 08/17/20 18:15 18:15 18:15 WBC 9.3 RBC 3.96 Hgb 10.7 Hct 32.4 MCV 82.0 MCH 27.1 MCHC 33.1 RDW 15.4 Plt Count 194 MPV 11.0 Absolute Neuts (auto) 7.9 Neutrophils % 84.8 H Lymphocytes % 5.5 L D Monocytes % 9.4 Eosinophils % 0.1 D Basophils % 0.2 Nucleated RBC % 0 PT with INR 14.80 H INR 1.25 H PTT (Actin FS) 30.9 VBG pH 7.428 H POC VBG pCO2 36.4 L POC VBG pO2 40.4 VBG HCO3 23.5 VBG O2 Sat (Tami) 77.3 VBG Base Excess -0.5 Sodium Potassium Chloride Carbon Dioxide Anion Gap BUN Creatinine Est GFR (CKD-EPI)AfAm Est GFR (CKD-EPI)NonAf Random Glucose Lactic Acid Calcium Total Bilirubin AST ALT Alkaline Phosphatase Creatine Kinase Troponin I Total Protein Albumin Urine Color Urine Appearance Urine pH Ur Specific [place] Urine Protein Urine Glucose (UA) Urine Ketones Urine Blood Urine Nitrite Urine Bilirubin Urine Urobilinogen Ur Leukocyte Esterase Blood Type Antibody Screen 08/17/20 08/17/20 08/17/20 18:15 18:15 18:15 WBC RBC Hgb Hct MCV MCH MCHC RDW Plt Count MPV Absolute Neuts (auto) Neutrophils % Lymphocytes % Monocytes % Eosinophils % Basophils % Nucleated RBC % PT with INR INR PTT (Actin FS) VBG pH POC VBG pCO2 POC VBG pO2 VBG HCO3 VBG O2 Sat (Tami) VBG Base Excess Sodium 137 Potassium 4.1 Chloride 103 Carbon Dioxide 26 Anion Gap 9 BUN 17.4 Creatinine 0.7 Est GFR (CKD-EPI)AfAm 109.15 Est GFR (CKD-EPI)NonAf 94.17 Random Glucose 103 Lactic Acid 1.2 Calcium 8.1 L Total Bilirubin 0.5 AST 50 H ALT 53 Alkaline Phosphatase 177 H Creatine Kinase 57 Troponin I < 0.02 Total Protein 6.1 L Albumin 2.5 L Urine Color Urine Appearance Urine pH Ur Specific [place] Urine Protein Urine Glucose (UA) Urine Ketones Urine Blood Urine Nitrite Urine Bilirubin Urine Urobilinogen Ur Leukocyte Esterase Blood Type A POSITIVE Antibody Screen Negative 08/17/20 08/18/20 08/18/20 21:07 05:18 05:18 WBC 8.6 RBC 3.69 Hgb 9.8 L Hct 29.7 L MCV 80.6 MCH 26.7 MCHC 33.1 RDW 15.3 Plt Count 191 MPV 10.8 Absolute Neuts (auto) Neutrophils % Lymphocytes % Monocytes % Eosinophils % Basophils % Nucleated RBC % PT with INR INR PTT (Actin FS) VBG pH POC VBG pCO2 POC VBG pO2 VBG HCO3 VBG O2 Sat (Tami) VBG Base Excess Sodium 137 Potassium 4.0 Chloride 104 Carbon Dioxide 24 Anion Gap 8 BUN 11.4 Creatinine 0.4 L Est GFR (CKD-EPI)AfAm 131.21 Est GFR (CKD-EPI)NonAf 113.21 Random Glucose 90 Lactic Acid Calcium 7.6 L Total Bilirubin AST ALT Alkaline Phosphatase Creatine Kinase Troponin I Total Protein Albumin Urine Color Yellow Urine Appearance Clear Urine pH 5.0 Ur Specific [place] 1.015 Urine Protein Negative Urine Glucose (UA) Negative Urine Ketones Trace H Urine Blood Negative Urine Nitrite Negative Urine Bilirubin Negative Urine Urobilinogen 0.2 Ur Leukocyte Esterase Negative Blood Type Antibody Screen Physical Exam: NAD awake, alert, dry MM CV: RRR, no MRG Lungs: CTAB , decreased breath soudns at L base Ext : No edema or erythema. Skin : L chest wall CT site ( tape location) with dry rash , scabs , no drainage , no erythema . site of the tube with no discharge, nosurounding eyth moses Abd: soft, NT, ND, nl BS Imaging: CT of chest images reviewed. report pending Assessment/Plan: Unfortunate 59 y/o lady with h/o L lung ca, s/p CT removal 08/15/20 , HTN, HLP, L malignant pleural effusion who presented with fever . She was found to be septic 1- Sepsis: likely source is PNA VS empyema. no other obvious source - Abx per ID. no previous cx. - will need to sample Pleural fluid. - add IVF , looks volume depleted - follow blood cx - tylenol for pain . - will consult pulm for pleural effusion - case was d/w Dr. Barba who will evaluate patient 2- h/o HTN: NL BP , hold BB 3- H/o Lung cancer. - will hold tagrisso for now and ask heme about it 4- hold statin for slightly elevated LFTS ( fatty liver , ? sepsis ) DVT PX : Lovenox Visit type - Emergency Visit Emergency Visit: Yes ED Registration Date: 08/17/20 Care time: The patient presented to the Emergency Department on the above date and was hospitalized for further evaluation of their emergent condition. - New Patient This patient is new to me today: Yes Date on this admission: 08/18/20 - Critical Care Critical Care patient: No
[2020-08-18] MEDS: ASCORBIC ACID 500 MG TABLET (FP) PO SCH (11:00)
[2020-08-18] MEDS: ASPIRIN 81 MG CHEWABLE TABLETS PO SCH (11:00)
[2020-08-18] MEDS: CHOLECALCIFEROL (VIT D3) 1,000 UNIT (25 MCG) TABLET PO SCH (11:00)
[2020-08-18] MEDS: PANTOPRAZOLE 20 MG TABLET PO SCH (11:00)
[2020-08-18] MEDS: CEFEPIME 2 GM in DEXTROSE 5%-WATER 100 ML IVPB SCH ×2 (11:00→19:02)
[2020-08-18] MEDS: ENOXAPARIN NA (PORCINE) 40 MG/0.4 ML DISP.SYRIN SQ SCH (12:06)
[2020-08-18] MEDS ORDERED: MAGNESIUM OXIDE 400 MG TABLET (FP) ONE (12:09)
[2020-08-18] MEDS: MAGNESIUM OXIDE 400 MG TABLET (FP) PO SCH (13:08)
--- NOTE | 2020-08-18 13:44 | CON.PULM ---
Consult Consult Specialty:: PULMONARY Referred by:: PATRICIA Reason for Consultation:: EFFUSION R/O EMPYEMA - History of Present Illness Chief Complaint: COUGH/FEVER/SHAKING CHILL S/P CT REMOVAL History of Present Illness: 59-year-old female with a past medical history significant for HTN, HLD, GERD, Lung CA (follows Dr. Smallwood) known by me from outpatient visits and initial diagnostic workup who presents to the emergency department with complaints of a fever of 102. The patient is s/p chest tube removal 2 days ago, which was placed in May for pleural effusion. The patient presents with a fever, cough, shaking chill and discomfort at site of ct removal. No changes in urinary habits, also denies nausea, vomiting, or diarrhea. No sick contacts. Patient is mentally challenged. 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 Cardio/Vascular: Yes: HTN, Hyperlipdemia Pulmonary: Yes: Other (lung cancer/malignant effusion/s/p tube drainage) Gastrointestinal: Yes: GERD Hepatobiliary: No: Cirrhosis Renal/: No: Renal Failure Reproductive: Yes: Postmenopausal ...: No Heme/Onc: Yes: Anemia Infectious Disease: No: AIDS Psych: No: Addictions Musculoskeletal: No: Chronic low back pain Rheumatology: No: Gout ENT: No: Sinusitis - Alcohol/Substance Use Hx Alcohol Use: No History of Substance Use: reports: None - Smoking History Smoking history: Never smoked Have you smoked in the past 12 months: No Home Medications - Allergies Allergies/Adverse Reactions: Allergies Allergy/AdvReac Type Severity Reaction Status Date / Time No Known Allergies Allergy Verified 08/17/20 17:59 - Home Medications Home Medications: Ambulatory Orders Atorvastatin Ca [Lipitor] 10 mg PO HS tablet 04/09/14 Cholecalciferol (Vitamin D3) [Vitamin D3 -] 1,000 units PO DAILY 06/14/17 Aspirin 81 mg PO DAILY 02/21/18 Potassium Chloride [K-Dur -] 20 meq PO BID 06/06/20 Metoprolol Succinate 50 mg PO DAILY 06/10/20 Acetaminophen [Tylenol] 650 mg PO QID PRN 08/17/20 Ascorbate Calcium [Vitamin C] 500 mg PO DAILY 08/17/20 Magnesium Oxide [Mag-Oxide] 200 mg PO DAILY 08/17/20 Omeprazole 20 mg PO DAILY 08/17/20 Osimertinib Mesylate [Tagrisso] 80 mg PO DAILY 08/17/20 Family Medical History Family History: Unremarkable Review of Systems - Review of Systems Constitutional: reports: Chills, Diaphoresis, Fever Eyes: reports: No Symptoms HENT: reports: No Symptoms Neck: reports: No Symptoms Cardiovascular: denies: Chest Pain Respiratory: reports: Exercise Intolerance. denies: Hemoptysis, Wheezing Gastrointestinal: denies: Abdominal Pain Genitourinary: denies: Burning Integumentary: reports: Other (patient has left axillary excoriated lesions ? h ealed zoster) Neurological: reports: No Symptoms Endocrine: reports: No Symptoms Hematology/Lymphatic: reports: No Symptoms Psychiatric: reports: No Symptoms Physical Exam Vital Sings: Vital Signs Temperature 99.8 F H 08/18/20 06:12 Pulse Rate 125 H 08/18/20 11:00 Respiratory Rate 18 08/18/20 11:00 Blood Pressure 114/50 L 08/18/20 06:12 O2 Sat by Pulse Oximetry (%) 98 08/18/20 11:00 Constitutional: Yes: Calm Eyes: Yes: EOM Intact HENT: Yes: Normocephalic Neck: Yes: Trachea Midline Cardiovascular: Yes: Regular Rate and Rhythm Respiratory: Yes: Diminished (left base), Other (site of removal of ct appears mildly infected) Gastrointestinal: Yes: Normal Bowel Sounds Renal/: Yes: WNL Musculoskeletal: Yes: WNL Extremities: Yes: WNL Edema: No Labs: CBC, BMP 08/18/20 05:18 08/18/20 05:18 Imaging - Results Chest X-ray: Report Reviewed, Image Reviewed Cat Scan: Report Reviewed, Image Reviewed Problem List - Problems (1) Fever Code(s): R50.9 - FEVER, UNSPECIFIED Qualifiers: Fever type: unspecified Qualified Code(s): R50.9 - Fever, unspecified (2) Lung cancer Code(s): C34.90 - MALIGNANT NEOPLASM OF UNSP PART OF UNSP BRONCHUS OR LUNG Qualifiers: Laterality: unspecified laterality Lung location: unspecified part of lung Qualified Code(s): C34.90 - Malignant neoplasm of unspecified part of unspecified bronchus or lung (3) Malignant pleural effusion Code(s): J91.0 - MALIGNANT PLEURAL EFFUSION Assessment/Plan Will need tap to r/o empyema Empiric abs coverage/panculture left lower infiltrate may be inciting factor ID evaluation will follow Roberto MACE MD
--- NOTE | 2020-08-18 16:29 | CON.HO ---
Consult Consult Specialty:: Medical Oncology Reason for Consultation:: Lung Cancer - History of Present Illness History of Present Illness: 59-year-old lady with a past medical history significant for HTN, HLD, GERD, Lung CA (follows Dr. Smallwood) who presents to the emergency department with complaints of a fever of 102. The patient has her chest tube removed 2 days ago, which was placed in May for pleural effusion. CXR in ER concerning for pneumonia. Started on Cefepime/Vanco in the ER. 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 Cardio/Vascular: Yes: HTN, Hyperlipdemia Pulmonary: Yes: Other (lung cancer/malignant effusion/s/p tube drainage) Gastrointestinal: Yes: GERD Hepatobiliary: No: Cirrhosis Renal/: No: Renal Failure ...: No Infectious Disease: No: AIDS Psych: No: Addictions Musculoskeletal: No: Chronic low back pain Rheumatology: No: Gout ENT: No: Sinusitis - Alcohol/Substance Use Hx Alcohol Use: No History of Substance Use: reports: None - Smoking History Smoking history: Never smoked Have you smoked in the past 12 months: No Home Medications - Allergies Allergies/Adverse Reactions: Allergies Allergy/AdvReac Type Severity Reaction Status Date / Time No Known Allergies Allergy Verified 08/17/20 17:59 - Home Medications Home Medications: Ambulatory Orders Atorvastatin Ca [Lipitor] 10 mg PO HS tablet 04/09/14 Cholecalciferol (Vitamin D3) [Vitamin D3 -] 1,000 units PO DAILY 06/14/17 Aspirin 81 mg PO DAILY 02/21/18 Potassium Chloride [K-Dur -] 20 meq PO BID 06/06/20 Metoprolol Succinate 50 mg PO DAILY 06/10/20 Acetaminophen [Tylenol] 650 mg PO QID PRN 08/17/20 Ascorbate Calcium [Vitamin C] 500 mg PO DAILY 08/17/20 Magnesium Oxide [Mag-Oxide] 200 mg PO DAILY 08/17/20 Omeprazole 20 mg PO DAILY 08/17/20 Osimertinib Mesylate [Tagrisso] 80 mg PO DAILY 08/17/20 Family Medical History Family History: Unremarkable Physical Exam Vital Signs: Vital Signs Temperature 99.2 F 08/18/20 14:07 Pulse Rate 120 H 08/18/20 14:07 Respiratory Rate 18 08/18/20 14:07 Blood Pressure 115/51 L 08/18/20 14:07 O2 Sat by Pulse Oximetry (%) 98 08/18/20 14:07 Constitutional: Yes: Well Nourished Eyes: Yes: WNL HENT: Yes: WNL Neck: Yes: WNL Cardiovascular: Yes: WNL Respiratory: Yes: Poor Air Entry Gastrointestinal: Yes: WNL, Normal Bowel Sounds, Soft Renal/: Yes: WNL Musculoskeletal: Yes: WNL Extremities: Yes: WNL Integumentary: Yes: WNL Wound/Incision: Yes: Clean/Dry Neurological: Yes: WNL Labs: CBC, BMP 08/18/20 05:18 08/18/20 05:18 Assessment/Plan 59-year-old lady with a past medical history significant for 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 Treated with Cisplatin/Pemetrexed and switched to Carbo/Pemetrexed due to poor po intake, completed 4 cycles 06/15 was briefly enrolled in the ALCHEMIST trial but came off due to diarrhea from study medication (erlotinib 150 mg daily-grade 1 diarrhea, fatigue and rash). Had recent pleural fluid cytology compatible with her presenting disease. Started Osimertinib 06/24/20. Now with fevers. Recommend: 1) [facility] pulmonary and ID consultations. Possible thoracentesis 2) Agree with Cefepime and Vanco 3) Hold Osimertinib (Tagrisso) 4) Will follow 5) Thank you for this consultation
[2020-08-18] MEDS ORDERED: ATORVASTATIN CA 10 MG TABLET (FP) PO SCH (22:00)
[2020-08-18] MEDS: SODIUM CHLORIDE 1,000 ML IV SCH (23:00)
[2020-08-19] MEDS ORDERED: PT OWN MED DRAWER 7, Y5N ONE ×2 (02:49→16:49)
[2020-08-19] MEDS: CEFEPIME 2 GM in DEXTROSE 5%-WATER 100 ML IVPB SCH ×3 (02:55→17:01)
[2020-08-19] MEDS ORDERED: VANCOMYCIN 1 GM in D5W (PRE-DOCKED) 1,000 MG/250 ML IVPB SCH (08:00)
[2020-08-19] MEDS: PANTOPRAZOLE 20 MG TABLET PO SCH ×2 (08:58→09:07)
[2020-08-19] MEDS: ASCORBIC ACID 500 MG TABLET (FP) PO SCH ×2 (08:58→09:07)
[2020-08-19] MEDS: MAGNESIUM OXIDE 400 MG TABLET (FP) PO SCH ×2 (08:58→09:06)
[2020-08-19] MEDS: ACETAMINOPHEN 325 MG TABLET (FP) PO PRN (08:59)
[2020-08-19] MEDS: CHOLECALCIFEROL (VIT D3) 1,000 UNIT (25 MCG) TABLET PO SCH (09:00)
[2020-08-19] MEDS: ASPIRIN 81 MG CHEWABLE TABLETS PO SCH (09:00)
[2020-08-19 09:03] LABS: ALBUMIN 1.7 g/dl (3.4-5.0); BILIRUBIN,TOTAL 0.4 mg/dL (0.2-1); BLOOD UREA NITROGEN 8.7 mg/dL (7-18); CALCIUM 7.5 mg/dL (8.5-10.1); CREATININE 0.5 mg/dL (0.55-1.3); MAGNESIUM 1.9 mg/dL (1.8-2.4); PHOSPHOROUS 2.6 mg/dL (2.5-4.9); POTASSIUM 3.6 mmol/L (3.5-5.1); TOT PROT 4.8 g/dl (6.4-8.2)
[2020-08-19 09:13] LABS: BASO % 0.2 % (0-2.0); EOS % 0.2 % (0-4.5); HEMATOCRIT 27.8 % (32.4-45.2); HEMOGLOBIN 9.1 GM/dL (10.7-15.3); LYMPH % 4.6 % (8-40); MCH 26.7 pg (25.7-33.7); MCHC 32.9 g/dl (32.0-36.0); MEAN CELL VOLUME 81.3 fl (80-96); MEAN PLT VOLUME 10.6 fl (7.5-11.1); MONO % 9.5 % (3.8-10.2); NEUT % 85.5 % (42.8-82.8); PLATELET COUNT 199 K/MM3 (134-434); RBC 3.42 M/mm3 (3.60-5.2); RDW 15.3 % (11.6-15.6); WHITE BLOOD COUNT 8.3 K/mm3 (4.0-10.0)
--- NOTE | 2020-08-19 10:37 | CON.CARD ---
Consult Consult Specialty:: Cardiology - History of Present Illness History of Present Illness: 59-year-old female with a past medical history significant for HTN, HLD, GERD, Lung CA (follows Dr. Smallwood) who presents to the emergency department with complaints of a fever of 102. The patient is s/p chest tube removal 2 days ago, which was placed in May for pleural effusion. The patient presents with a fever, but denies a cough. No changes in urinary habits, also denies nausea, vomiting, or diarrhea. Denies recent travel ED course WBC normal = 9.3 - UA results noted to be negative -Concern for pneumonia on cxr (seen 2 days ago along with pleural effusion and atelectasis) and for abscess to her back -CT chest ordered - Patient was given cefepime/vancomycin in ED PMHx: As noted above Allergies: NKA Social history: No tobacco, alcohol, or recreational drug use reported. PCP: Dr. Kylie Griggs Hemo/Onc: Dr. 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 Cardio/Vascular: Yes: HTN, Hyperlipdemia Pulmonary: Yes: Other (lung cancer/malignant effusion/s/p tube drainage) Gastrointestinal: Yes: GERD Hepatobiliary: No: Cirrhosis Renal/: No: Renal Failure ...: No Infectious Disease: No: AIDS Psych: No: Addictions Musculoskeletal: No: Chronic low back pain Rheumatology: No: Gout ENT: No: Sinusitis - Alcohol/Substance Use Hx Alcohol Use: No History of Substance Use: reports: None - Smoking History Smoking history: Never smoked Have you smoked in the past 12 months: No Home Medications - Allergies Allergies/Adverse Reactions: Allergies Allergy/AdvReac Type Severity Reaction Status Date / Time No Known Allergies Allergy Verified 08/17/20 17:59 - Home Medications Home Medications: Ambulatory Orders Atorvastatin Ca [Lipitor] 10 mg PO HS tablet 04/09/14 Cholecalciferol (Vitamin D3) [Vitamin D3 -] 1,000 units PO DAILY 06/14/17 Aspirin 81 mg PO DAILY 02/21/18 Potassium Chloride [K-Dur -] 20 meq PO BID 06/06/20 Metoprolol Succinate 50 mg PO DAILY 06/10/20 Acetaminophen [Tylenol] 650 mg PO QID PRN 08/17/20 Ascorbate Calcium [Vitamin C] 500 mg PO DAILY 08/17/20 Magnesium Oxide [Mag-Oxide] 200 mg PO DAILY 08/17/20 Omeprazole 20 mg PO DAILY 08/17/20 Osimertinib Mesylate [Tagrisso] 80 mg PO DAILY 08/17/20 Family Medical History Family History: Unremarkable Review of Systems - Review of Systems Constitutional: reports: Chills, Fever Eyes: reports: No Symptoms HENT: reports: No Symptoms Neck: reports: No Symptoms Cardiovascular: reports: No Symptoms Gastrointestinal: reports: No Symptoms Genitourinary: reports: No Symptoms Breasts: reports: No Symptoms Reported Musculoskeletal: reports: No Symptoms Integumentary: reports: No Symptoms Neurological: reports: No Symptoms Endocrine: reports: No Symptoms Hematology/Lymphatic: reports: No Symptoms Psychiatric: reports: No Symptoms Vital Signs: Vital Signs Temperature 96.3 F L 08/19/20 10:00 Pulse Rate 112 H 08/19/20 10:00 Respiratory Rate 18 08/19/20 10:00 Blood Pressure 110/56 L 08/19/20 10:00 O2 Sat by Pulse Oximetry (%) 90 L 08/19/20 10:00 Constitutional: Yes: Well Nourished, No Distress, Calm Eyes: Yes: WNL, Conjunctiva Clear, EOM Intact HENT: Yes: WNL, Atraumatic, Normocephalic Neck: Yes: WNL, Supple, Trachea Midline Respiratory: Yes: Diminished Gastrointestinal: Yes: WNL, Normal Bowel Sounds Renal/: Yes: WNL Cardiovascular: Yes: WNL, Regular Rate and Rhythm Musculoskeletal: Yes: WNL Extremities: Yes: WNL Integumentary: Yes: WNL Neurological: Yes: WNL, Alert, Oriented ...Motor Strength: WNL Psychiatric: Yes: WNL, Alert, Oriented - Other Data Labs, Other Data: CBC, BMP 08/19/20 06:49 08/19/20 06:49 INR, PTT INR 1.25 (0.83-1.09) H 08/17/20 18:15 Imaging - Results EKG: Image Reviewed (s tachycardia low voltage ?old anterioseptal LA) Problem List - Problems (1) Fever Code(s): R50.9 - FEVER, UNSPECIFIED Qualifiers: Fever type: unspecified Qualified Code(s): R50.9 - Fever, unspecified (2) Soft tissue infection Code(s): L08.9 - LOCAL INFECTION OF THE SKIN AND SUBCUTANEOUS TISSUE, UNSP (3) Lung cancer Code(s): C34.90 - MALIGNANT NEOPLASM OF UNSP PART OF UNSP BRONCHUS OR LUNG Qualifiers: Laterality: unspecified laterality Lung location: unspecified part of lung Qualified Code(s): C34.90 - Malignant neoplasm of unspecified part of unspecified bronchus or lung (4) Chronic diastolic (congestive) heart failure Code(s): I50.32 - CHRONIC DIASTOLIC (CONGESTIVE) HEART FAILURE (5) Malignant pleural effusion Code(s): J91.0 - MALIGNANT PLEURAL EFFUSION (8) Sinus tachycardia Code(s): R00.0 - TACHYCARDIA, UNSPECIFIED (9) Trapped lung Code(s): J98.19 - OTHER PULMONARY COLLAPSE (10) Anxiety Code(s): F41.9 - ANXIETY DISORDER, UNSPECIFIED (11) Lung mass Code(s): R91.8 - OTHER NONSPECIFIC ABNORMAL FINDING OF LUNG FIELD (12) Pneumothorax Code(s): J93.9 - PNEUMOTHORAX, UNSPECIFIED (13) Right kidney stone Code(s): N20.0 - CALCULUS OF KIDNEY Assessment/Plan 59-year-old female with a past medical history significant for HTN, HLD, GERD, L harmony CA (follows Dr. Smallwood) who presents to the emergency department with complaints of a fever of 102dx with Sepsis. Plan; As per ID/Onc and pulmonary Repeat EKG. DVT PLX
--- NOTE | 2020-08-19 11:32 | PN ---
Progress Note (short form) - Note Progress Note: PULMONARY Feels better. c/o frequent urination with IVF. Fever curve down. Vital Signs Period Temp Pulse Resp BP Sys/Gonzalez Pulse Ox Last 24 Hr 96.3 F-99.8 F 102-120 18-18 110-115/51-61 90-98 Gen: NAD at rest Heart: RRR Lung: decreased breath sounds left base Abd: soft, nontender Ext: no edema CBC, BMP 08/19/20 06:49 08/19/20 06:49 Active Medications Acetaminophen (Tylenol -) 650 mg PO Q4H PRN PRN Reason: FEVER Last Admin: 08/19/20 08:59 Dose: 650 mg Documented by: Ascorbic Acid (Vitamin C -) 500 mg PO DAILY [facility] Last Admin: 08/19/20 09:07 Dose: Not Given Documented by: Aspirin (Asa -) 81 mg PO DAILY [facility] Last Admin: 08/19/20 09:00 Dose: 81 mg Documented by: Cholecalciferol (Vitamin D3 -) 1,000 unit PO DAILY [facility] Last Admin: 08/19/20 09:00 Dose: 1,000 unit Documented by: Enoxaparin Sodium (Lovenox -) 40 mg SQ DAILY [facility] Last Admin: 08/18/20 12:06 Dose: 40 mg Documented by: Sodium Chloride (Normal Saline -) 1,000 mls @ 100 mls/hr IV ASDIR [facility] Last Admin: 08/18/20 23:00 Dose: 100 mls/hr Documented by: Cefepime HCl 2 gm/ Dextrose 100 mls @ 100 mls/hr IVPB Q8H-IV MELBA; Protocol Last Admin: 08/19/20 09:57 Dose: 100 mls/hr Documented by: Magnesium Oxide (Mag-Ox -) 200 mg PO DAILY [facility] Last Admin: 08/19/20 09:06 Dose: Not Given Documented by: Metoprolol Succinate (Toprol Xl -) 50 mg PO DAILY [facility] Last Admin: 08/19/20 09:00 Dose: 50 mg Documented by: Ondansetron HCl (Zofran Injection) 4 mg IVPUSH Q6H PRN PRN Reason: NAUSEA Pantoprazole Sodium (Protonix -) 20 mg PO DAILY [facility] Last Admin: 08/19/20 09:07 Dose: Not Given Documented by: A/P Pneumonia Pleural Effusion Lung Cancer HTN Hyperlipidemia - continue antibiotics - f/u cultures - O2 to keep SpO2 >90% - decrease IVF - DVT prophylaxis
[2020-08-19] MEDS ORDERED: SODIUM CHLORIDE 1,000 ML IV SCH (11:34)
--- NOTE | 2020-08-19 13:37 | PN ---
Progress Note, Physician History of Present Illness: stable has been afebrile - Current Medication List Current Medications: Active Medications Acetaminophen (Tylenol -) 650 mg PO Q4H PRN PRN Reason: FEVER Last Admin: 08/19/20 08:59 Dose: 650 mg Documented by: Ascorbic Acid (Vitamin C -) 500 mg PO DAILY [facility] Last Admin: 08/19/20 09:07 Dose: Not Given Documented by: Aspirin (Asa -) 81 mg PO DAILY [facility] Last Admin: 08/19/20 09:00 Dose: 81 mg Documented by: Cholecalciferol (Vitamin D3 -) 1,000 unit PO DAILY [facility] Last Admin: 08/19/20 09:00 Dose: 1,000 unit Documented by: Enoxaparin Sodium (Lovenox -) 40 mg SQ DAILY [facility] Last Admin: 08/18/20 12:06 Dose: 40 mg Documented by: Cefepime HCl 2 gm/ Dextrose 100 mls @ 100 mls/hr IVPB Q8H-IV [facility]; Protocol Last Admin: 08/19/20 09:57 Dose: 100 mls/hr Documented by: Sodium Chloride (Normal Saline -) 1,000 mls @ 50 mls/hr IV ASDIR [facility] Magnesium Oxide (Mag-Ox -) 200 mg PO DAILY [facility] Last Admin: 08/19/20 09:06 Dose: Not Given Documented by: Metoprolol Succinate (Toprol Xl -) 50 mg PO DAILY [facility] Last Admin: 08/19/20 09:00 Dose: 50 mg Documented by: Ondansetron HCl (Zofran Injection) 4 mg IVPUSH Q6H PRN PRN Reason: NAUSEA Pantoprazole Sodium (Protonix -) 20 mg PO DAILY [facility] Last Admin: 08/19/20 09:07 Dose: Not Given Documented by: - Objective Vital Signs: Vital Signs Temperature 96.3 F L 08/19/20 10:00 Pulse Rate 112 H 08/19/20 10:00 Respiratory Rate 18 08/19/20 10:00 Blood Pressure 110/56 L 08/19/20 10:00 O2 Sat by Pulse Oximetry (%) 90 L 08/19/20 10:00 Constitutional: Yes: No Distress, Calm Cardiovascular: Yes: S1, S2 Respiratory: Yes: Regular, CTA Bilaterally Gastrointestinal: Yes: Normal Bowel Sounds, Soft Musculoskeletal: Yes: WNL Extremities: Yes: WNL Neurological: Yes: Alert, Oriented Psychiatric: Yes: Alert, Oriented Labs: CBC, BMP 08/19/20 06:49 08/19/20 06:49 INR, PTT INR 1.25 (0.83-1.09) H 08/17/20 18:15 Assessment/Plan Problem List - Problems (1) Fever Code(s): R50.9 - FEVER, UNSPECIFIED Qualifiers: Fever type: unspecified Qualified Code(s): R50.9 - Fever, unspecified (2) Lung cancer Code(s): C34.90 - MALIGNANT NEOPLASM OF UNSP PART OF UNSP BRONCHUS OR LUNG Qualifiers: Laterality: unspecified laterality Lung location: unspecified part of lung Qualified Code(s): C34.90 - Malignant neoplasm of unspecified part of unspecified bronchus or lung (3) Malignant pleural effusion Code(s): J91.0 - MALIGNANT PLEURAL EFFUSION plan abx consider therapeutic tapping monitor fevers rest as per the team
--- NOTE | 2020-08-19 13:52 | PN ---
Physical Exam: SUBJECTIVE: Patient seen and examined this morning, baseline mild intelectual disability, complains of pain at prior L chest tube site. Endorses no other complaints. No SoB, CP, F/C/N/V. Will be going for thoracocentesis today per pulmonary note. OBJECTIVE: Vital Signs Period Temp Pulse Resp BP Sys/Gonzalez Pulse Ox Last 24 Hr 96.3 F-99.8 F 102-120 18-18 110-115/51-61 90-98 GENERAL: The patient is awake, alert, and fully oriented, in no acute distress. HEAD: Normal with no signs of trauma. EYES: PERRL, extraocular movements intact, sclera anicteric, conjunctiva clear. No ptosis. NECK: Trachea midline, full range of motion, supple. LUNGS: Right sided breath sounds normal, decreased breath sounds at the L lung base. HEART: Regular rate and rhythm, S1, S2 without murmur, rub or gallop. ABDOMEN: Soft, nontender, nondistended, normoactive bowel sounds EXTREMITIES: 2+ pulses, warm, well-perfused, no edema. NEUROLOGICAL: Normal speech, gait not observed. PSYCH: Normal mood, normal affect. SKIN: Warm, dry, normal turgor, no rashes or lesions noted Laboratory Results - last 24 hr CBC, BMP 08/19/20 06:49 08/19/20 06:49 Active Medications Generic Name Dose Route Start Last Admin Trade Name Freq PRN Reason Stop Dose Admin Acetaminophen 650 mg 08/17/20 22:28 08/19/20 08:59 Tylenol - PO 650 mg Q4H PRN Administration FEVER Ascorbic Acid 500 mg 08/18/20 10:00 08/19/20 09:07 Vitamin C - PO Not Given DAILY [facility] Aspirin 81 mg 08/18/20 10:00 08/19/20 09:00 Asa - PO 81 mg DAILY [facility] Administration Cholecalciferol 1,000 unit 08/18/20 10:00 08/19/20 09:00 Vitamin D3 - PO 1,000 unit DAILY [facility] Administration Enoxaparin Sodium 40 mg 08/18/20 10:00 08/18/20 12:06 Lovenox - SQ 40 mg DAILY [facility] Administration Cefepime HCl 2 gm/ Dextrose 100 mls @ 100 mls/hr 08/18/20 10:00 08/19/20 09:57 IVPB 100 mls/hr Q8H-IV [facility] Administration Protocol Sodium Chloride 1,000 mls @ 50 mls/hr 08/19/20 11:34 Normal Saline - IV ASDIR [facility] Magnesium Oxide 200 mg 08/18/20 12:00 08/19/20 09:06 Mag-Ox - PO Not Given DAILY [facility] Metoprolol Succinate 50 mg 08/18/20 12:00 08/19/20 09:00 Toprol Xl - PO 50 mg DAILY [facility] Administration Ondansetron HCl 4 mg 08/18/20 00:01 Zofran Injection IVPUSH Q6H PRN NAUSEA Pantoprazole Sodium 20 mg 08/18/20 10:00 08/19/20 09:07 Protonix - PO Not Given DAILY [facility] ASSESSMENT/PLAN: 59 yo F w/ PMHx of HTN, HLD, GERD, Lung CA (Dr. Smallwood) presents with complaints of a fever of 102, found to be septic on admission. Currently s/p removal of chest tube on 08/15/2020 which was placed in May for a pleural effusion. Sepsis 2/2 Pulmonary Infection: R/O Post Obstructive Pneumonia/Empyema -Afebrile w.o white count -CT: shows left pleural fluid collections -Hx recent hydro thorax in 05/2020 -FU thoracocentesis -FU Cultures -c/w cefepime Sepsis 2/2 RO Wound Infection 2/2 Chest Tube Site -L sided chest tube, mildly erythematous and painful, non purulent -FU Wound cultures: -c/w Cefepime HTN -BP WNL -c/w Toprol 50mg PPX -GI: Protonix -DVT: Lovenox FEN: -NS @ 50 -Lytes -Regular diet Dispo: Continue to monitor on floors Visit type - Emergency Visit Emergency Visit: No - New Patient This patient is new to me today: Yes Date on this admission: 08/19/20 - Critical Care Critical Care patient: No - Discharge Referral Referred to [facility] Med P.C.: No ATTENDING PHYSICIAN STATEMENT I saw and evaluated the patient. I reviewed the resident's note and discussed the case with the resident. I agree with the resident's findings and plan as documented. SUBJECTIVE: OBJECTIVE: ASSESSMENT AND PLAN:
--- NOTE | 2020-08-19 16:33 | PN ---
Teaching Attending Note Name of Resident: Wilfredo Roa ATTENDING PHYSICIAN STATEMENT I saw and evaluated the patient. I reviewed the resident's note and discussed the case with the resident. I agree with the resident's findings and plan as documented. SUBJECTIVE: feels better , has no fever . No LUCIA . NO BN/V. No OSB . pain at site of CT OBJECTIVE: NAD awake, alert, slightly dry MM CV: RRR, no MRG Lungs: CTAB , decreased breath sounds at L base Ext : No edema or erythema. Skin : L chest wall CT site with dry rash , scabs , no drainage ,. mild surrounding erythema and tenderness around tube location . Abd: soft, NT, ND, nl BS Assessment/Plan: Unfortunate 59 y/o lady with h/o L lung ca, s/p CT removal 08/15/20 , HTN, HLP, L malignant pleural effusion who presented with fever . She was found to be septic 1- Sepsis: likely source is PNA VS empyema. possible mild cellulitis at site of previous CT - con Abx - Pleural fluid analysis and Cx when thoracentesis is done ( pending ) - cont IVF at lower rate - follow blood cx - tylenol for pain . - d/w Dr. Barba 2- h/o HTN: resume BB 3- H/o Lung cancer. - will hold tagrisso for now 4- hold statin for slightly elevated LFTS ( fatty liver , ? sepsis ) DVT PX : Lovenox
[2020-08-19] MEDS ORDERED: OSIMERTINIB MESYLATE 80 MG PO SCH (17:00)
--- NOTE | 2020-08-19 19:38 | PN.HO ---
Progress Note (short form) - Note Progress Note: PAtient seen and examined Feels better Serosanguinous, discharge from Lt. pleurx catheter site Last Vital Signs Temp Pulse Resp BP Pulse Ox 98.1 F 105 H 18 106/51 L 97 08/19/20 14:09 08/19/20 14:09 08/19/20 14:09 08/19/20 14:09 08/19/20 14:09 Cor: RSR, No murmurs, No gallops Lungs: decreased breaath sounds lt. lung base. Soft tissue edema and srosanguinous drainage at Lt. pleurx catheter site Abd: Soft, Normal bowel sounds, No organomegaly Ext:No significant edema LAbs/Meds reviewed A/P 59 y/o with metastatic NSCLC with EGFR mutation On osimertinib since end may Improved pleural effusion Admitted with fever Pleurx was taken out on 08/15/20 Soft tissue swelling and serodsanguinous drainage at pleur x catheter site Also with loculated effusion discussed with ID --continuing antibiotics Discussed with IR --, if the tract does not close with antibiotics and conservative management may need ? pigtail catheter placement for 2-3days and removal continue conservative management for now Continue osimertinib 80 mg daily
[2020-08-19] MEDS ORDERED: OSIMERTINIB 80 MG PO SCH (20:00)
[2020-08-19] MEDS: HYDROCORTISONE 1% TOPICAL CREAM 30 GM TUBE TP SCH (23:00)
[2020-08-20] MEDS ORDERED: PT OWN MED DRAWER 7, Y5N ONE ×2 (01:26→17:03)
[2020-08-20] MEDS: CEFEPIME 2 GM in DEXTROSE 5%-WATER 100 ML IVPB SCH ×3 (01:38→17:05)
[2020-08-20 07:58] LABS: BASO % 0.2 % (0-2.0); EOS % 0.2 % (0-4.5); HEMATOCRIT 27.1 % (32.4-45.2); HEMOGLOBIN 8.8 GM/dL (10.7-15.3); LYMPH % 4.3 % (8-40); MCH 26.2 pg (25.7-33.7); MCHC 32.4 g/dl (32.0-36.0); MEAN CELL VOLUME 80.6 fl (80-96); MEAN PLT VOLUME 10.3 fl (7.5-11.1); MONO % 8.2 % (3.8-10.2); NEUT % 87.1 % (42.8-82.8); PLATELET COUNT 261 K/MM3 (134-434); RBC 3.36 M/mm3 (3.60-5.2); RDW 15.4 % (11.6-15.6); WHITE BLOOD COUNT 8.9 K/mm3 (4.0-10.0)
[2020-08-20 08:40] LABS: BLOOD UREA NITROGEN 8.6 mg/dL (7-18); CALCIUM 7.3 mg/dL (8.5-10.1); CREATININE 0.5 mg/dL (0.55-1.3); POTASSIUM 3.1 mmol/L (3.5-5.1)
[2020-08-20] MEDS ORDERED: POTASSIUM CHLORIDE ORAL LIQUID 20 MEQ/15 ML PO ONE (09:00)
--- NOTE | 2020-08-20 09:43 | EKG ---
Test Reason : Blood Pressure : / mmHG Vent. Rate : 102 BPM Atrial Rate : 102 BPM P-R Int : 126 ms QRS Dur : 062 ms QT Int : 358 ms P-R-T Axes : 082 078 050 degrees QTc Int : 466 ms SINUS TACHYCARDIA OTHERWISE NORMAL ECG WHEN COMPARED WITH ECG OF 17-AUG-2020 18:41, NO SIGNIFICANT CHANGE WAS FOUND Confirmed by Brayan Tierney ([id number]) on 08/20/2020 9:43:02 AM Referred By: Confirmed By:Brayan Tierney
[2020-08-20] MEDS: ASCORBIC ACID 500 MG TABLET (FP) PO SCH (09:52)
[2020-08-20] MEDS: PANTOPRAZOLE 20 MG TABLET PO SCH (09:52)
[2020-08-20] MEDS: ASPIRIN 81 MG CHEWABLE TABLETS PO SCH (09:52)
[2020-08-20] MEDS: MAGNESIUM OXIDE 400 MG TABLET (FP) PO SCH (09:52)
[2020-08-20] MEDS: CHOLECALCIFEROL (VIT D3) 1,000 UNIT (25 MCG) TABLET PO SCH (09:52)
[2020-08-20] MEDS: ENOXAPARIN NA (PORCINE) 40 MG/0.4 ML DISP.SYRIN SQ SCH (09:53)
[2020-08-20] MEDS: HYDROCORTISONE 1% TOPICAL CREAM 30 GM TUBE TP SCH (09:53)
--- NOTE | 2020-08-20 10:16 | PN ---
Progress Note (short form) - Note Progress Note: PULMONARY Feels better. Still c/o frequent urination with IVF. No further fevers. Vital Signs Period Temp Pulse Resp BP Sys/Gonzalez Pulse Ox Last 24 Hr 98.1 F-99.7 F 105-112 18-18 106-110/51-53 95-97 Gen: NAD at rest Heart: RRR Lung: decreased breath sounds left base Abd: soft, nontender Ext: no edema CBC, BMP 08/20/20 07:29 08/20/20 06:00 Active Medications Acetaminophen (Tylenol -) 650 mg PO Q4H PRN PRN Reason: FEVER Last Admin: 08/19/20 08:59 Dose: 650 mg Documented by: Ascorbic Acid (Vitamin C -) 500 mg PO DAILY [facility] Last Admin: 08/20/20 09:52 Dose: 500 mg Documented by: Aspirin (Asa -) 81 mg PO DAILY [facility] Last Admin: 08/20/20 09:52 Dose: 81 mg Documented by: Cholecalciferol (Vitamin D3 -) 1,000 unit PO DAILY [facility] Last Admin: 08/20/20 09:52 Dose: 1,000 unit Documented by: Enoxaparin Sodium (Lovenox -) 40 mg SQ DAILY [facility] Last Admin: 08/20/20 09:53 Dose: 40 mg Documented by: Hydrocortisone (Hytone 1% Cream -) 1 applic TP BID [facility] Last Admin: 08/20/20 09:53 Dose: 1 applic Documented by: Cefepime HCl 2 gm/ Dextrose 100 mls @ 100 mls/hr IVPB Q8H-IV [facility]; Protocol Last Admin: 08/20/20 01:38 Dose: 100 mls/hr Documented by: Sodium Chloride (Normal Saline -) 1,000 mls @ 50 mls/hr IV ASDIR [facility] Last Admin: 08/19/20 15:09 Dose: Not Given Documented by: Magnesium Oxide (Mag-Ox -) 200 mg PO DAILY [facility] Last Admin: 08/20/20 09:52 Dose: 200 mg Documented by: Metoprolol Succinate (Toprol Xl -) 50 mg PO DAILY [facility] Last Admin: 08/20/20 09:52 Dose: 50 mg Documented by: (Osimertinib 80mg [ (Tagrisso])) 1 each PO DAILY@1700 [facility] Ondansetron HCl (Zofran Injection) 4 mg IVPUSH Q6H PRN PRN Reason: NAUSEA Pantoprazole Sodium (Protonix -) 20 mg PO DAILY [facility] Last Admin: 08/20/20 09:52 Dose: 20 mg Documented by: A/P Pneumonia vs Skin Infection Malignant Right Pleural Effusion s/p recent chest tube removal Lung Cancer HTN Hyperlipidemia - continue antibiotics - f/u cultures - for diagnostic thoracentesis - O2 to keep SpO2 >90% - will d/c IVF - DVT prophylaxis
[2020-08-20] MEDS ORDERED: DOXYCYCLINE INJECTION 100 MG in DEXTROSE 5%-WATER - 100 ML IVPB ONE (12:21)
--- NOTE | 2020-08-20 12:23 | PN ---
Progress Note, Physician History of Present Illness: stable no new issues - Current Medication List Current Medications: Active Medications Acetaminophen (Tylenol -) 650 mg PO Q4H PRN PRN Reason: FEVER Last Admin: 08/19/20 08:59 Dose: 650 mg Documented by: Ascorbic Acid (Vitamin C -) 500 mg PO DAILY [facility] Last Admin: 08/20/20 09:52 Dose: 500 mg Documented by: Aspirin (Asa -) 81 mg PO DAILY [facility] Last Admin: 08/20/20 09:52 Dose: 81 mg Documented by: Cholecalciferol (Vitamin D3 -) 1,000 unit PO DAILY [facility] Last Admin: 08/20/20 09:52 Dose: 1,000 unit Documented by: Enoxaparin Sodium (Lovenox -) 40 mg SQ DAILY [facility] Last Admin: 08/20/20 09:53 Dose: 40 mg Documented by: Hydrocortisone (Hytone 1% Cream -) 1 applic TP BID [facility] Last Admin: 08/20/20 09:53 Dose: 1 applic Documented by: Cefepime HCl 2 gm/ Dextrose 100 mls @ 100 mls/hr IVPB Q8H-IV [facility]; Protocol Last Admin: 08/20/20 10:26 Dose: 100 mls/hr Documented by: Doxycycline Hyclate 100 mg/ (Dextrose) 100 mls @ 100 mls/hr IVPB ONCE ONE Stop: 08/20/20 13:20 Magnesium Oxide (Mag-Ox -) 200 mg PO DAILY [facility] Last Admin: 08/20/20 09:52 Dose: 200 mg Documented by: Metoprolol Succinate (Toprol Xl -) 50 mg PO DAILY [facility] Last Admin: 08/20/20 09:52 Dose: 50 mg Documented by: (Osimertinib 80mg [ (Tagrisso])) 1 each PO DAILY@1700 [facility] Ondansetron HCl (Zofran Injection) 4 mg IVPUSH Q6H PRN PRN Reason: NAUSEA Pantoprazole Sodium (Protonix -) 20 mg PO DAILY [facility] Last Admin: 08/20/20 09:52 Dose: 20 mg Documented by: - Objective Vital Signs: Vital Signs Temperature 98.3 F 08/20/20 10:00 Pulse Rate 118 H 08/20/20 10:00 Respiratory Rate 20 08/20/20 10:00 Blood Pressure 104/53 L 08/20/20 10:00 O2 Sat by Pulse Oximetry (%) 95 08/20/20 10:00 Constitutional: Yes: No Distress, Calm Cardiovascular: Yes: S1, S2 Respiratory: Yes: Regular, CTA Bilaterally Gastrointestinal: Yes: Normal Bowel Sounds, Soft Musculoskeletal: Yes: WNL Extremities: Yes: WNL Wound/Incision: Yes: Dressing Dry and Intact Neurological: Yes: Alert, Oriented Psychiatric: Yes: Alert, Oriented Labs: CBC, BMP 08/20/20 07:29 08/20/20 06:00 INR, PTT INR 1.25 (0.83-1.09) H 08/17/20 18:15 Assessment/Plan Problem List - Problems (1) Fever Code(s): R50.9 - FEVER, UNSPECIFIED Qualifiers: Fever type: unspecified Qualified Code(s): R50.9 - Fever, unspecified (2) Lung cancer Code(s): C34.90 - MALIGNANT NEOPLASM OF UNSP PART OF UNSP BRONCHUS OR LUNG Qualifiers: Laterality: unspecified laterality Lung location: unspecified part of lung Qualified Code(s): C34.90 - Malignant neoplasm of unspecified part of unspecified bronchus or lung (3) Malignant pleural effusion Code(s): J91.0 - MALIGNANT PLEURAL EFFUSION plan continue abx will add doxy await for dentification of the bacteria
--- NOTE | 2020-08-20 14:02 | PN ---
Physical Exam: SUBJECTIVE: Patient seen and examined this morning, endorses 1 episode of diarrhea overnight, denies any other complaints, denies F/C, N/V, CP, SoB, light headedness or dizzyness. OBJECTIVE: Vital Signs Period Temp Pulse Resp BP Sys/Gonzalez Pulse Ox Last 24 Hr 98.1 F-99.7 F 105-118 18-20 104-110/51-53 95-97 GENERAL: The patient is awake, alert, and fully oriented, in no acute distress. HEAD: Normal with no signs of trauma. EYES: PERRL, extraocular movements intact, sclera anicteric, conjunctiva clear. No ptosis. NECK: Trachea midline, full range of motion, supple. LUNGS: Right sided breath sounds normal, decreased breath sounds at the L lung base. HEART: Regular rate and rhythm, S1, S2 without murmur, rub or gallop. CHEST: Mild serous drainage at previous chest tube site. No erythema. No pus. Nodular mass noted at area. ABDOMEN: Soft, nontender, nondistended, normoactive bowel sounds EXTREMITIES: 2+ pulses, warm, well-perfused, no edema. NEUROLOGICAL: Normal speech, gait not observed. PSYCH: Normal mood, normal affect. SKIN: Warm, dry, normal turgor, no rashes or lesions noted except as above Laboratory Results - last 24 hr CBC, BMP 08/20/20 07:29 08/20/20 06:00 08/17/20 18:15 Gram Stain - Final Back Wound Culture - Preliminary Non Lactose Fermenting Gnb Presumptive Mrsa (Pbp2a Pos) 08/20/20 01:45 Gram Stain - Pending Chest Wound Culture - Pending 08/17/20 18:30 Blood Culture - Preliminary Blood - Peripheral Venous NO GROWTH OBTAINED AFTER 48 HOURS, INCUBATION TO CONTINUE FOR 3 DAYS. 08/17/20 18:15 Blood Culture - Preliminary Blood - Peripheral Venous NO GROWTH OBTAINED AFTER 48 HOURS, INCUBATION TO CONTINUE FOR 3 DAYS. 08/17/20 21:07 Urine Culture - Final Urine - Urine Clean Catch NO GROWTH OBTAINED Active Medications Generic Name Dose Route Start Last Admin Trade Name Freq PRN Reason Stop Dose Admin Acetaminophen 650 mg 08/17/20 22:28 08/19/20 08:59 Tylenol - PO 650 mg Q4H PRN Administration FEVER Ascorbic Acid 500 mg 08/18/20 10:00 08/20/20 09:52 Vitamin C - PO 500 mg DAILY [facility] Administration Aspirin 81 mg 08/18/20 10:00 08/20/20 09:52 Asa - PO 81 mg DAILY [facility] Administration Cholecalciferol 1,000 unit 08/18/20 10:00 08/20/20 09:52 Vitamin D3 - PO 1,000 unit DAILY [facility] Administration Enoxaparin Sodium 40 mg 08/18/20 10:00 08/20/20 09:53 Lovenox - SQ 40 mg DAILY [facility] Administration Hydrocortisone 1 applic 08/19/20 22:00 08/20/20 09:53 Hytone 1% Cream - TP 1 applic BID [facility] Administration Cefepime HCl 2 gm/ Dextrose 100 mls @ 100 mls/hr 08/18/20 10:00 08/20/20 10:26 IVPB 100 mls/hr Q8H-IV [facility] Administration Protocol Magnesium Oxide 200 mg 08/18/20 12:00 08/20/20 09:52 Mag-Ox - PO 200 mg DAILY [facility] Administration Metoprolol Succinate 50 mg 08/18/20 12:00 08/20/20 09:52 Toprol Xl - PO 50 mg DAILY [facility] Administration (Osimertinib 80mg [ 1 each 08/19/20 20:01 Tagrisso]) PO DAILY@1700 [facility] Ondansetron HCl 4 mg 08/18/20 00:01 Zofran Injection IVPUSH Q6H PRN NAUSEA Pantoprazole Sodium 20 mg 08/18/20 10:00 08/20/20 09:52 Protonix - PO 20 mg DAILY [facility] Administration ASSESSMENT/PLAN: 59 yo F w/ PMHx of HTN, HLD, GERD, Lung CA (Dr. Smallwood) presents with complaints of a fever of 102, found to be septic on admission. Currently s/p removal of pleurx catheter on 08/15/2020 which was placed in May for a pleural effusion. Sepsis 2/2 Pulmonary Infection: R/O Post Obstructive Pneumonia/Empyema -Afebrile w.o white count -CT: shows left pleural fluid collections -Hx recent hydro thorax in 05/2020 -c/w abx Sepsis 2/2 RO Wound Infection 2/2 Pleurx Catheter Site -L sided chest tube, no eryethema, but serous drainage w/ nodular feeling mass -Per ID -FU Cultures: [id number], Presumptive MRSA -c/w Cefepime -Start Doxy -Per Heme Onc -If the tract does not close may need pigtail catheter placement for 2-3days and removal Hx of NSCLC w/ EGFR Mutation -Per HemeOnc -c/w Osimertinib HTN -BP WNL -c/w Toprol 50mg PPX -GI: Protonix -DVT: Lovenox FEN: -No standing fluids -Lytes -Regular diet Dispo: Continue to monitor on floors Visit type - Emergency Visit Emergency Visit: No - New Patient This patient is new to me today: No - Critical Care Critical Care patient: No - Discharge Referral Referred to [facility] Med P.C.: No ATTENDING PHYSICIAN STATEMENT I saw and evaluated the patient. I reviewed the resident's note and discussed the case with the resident. I agree with the resident's findings and plan as documented. SUBJECTIVE: OBJECTIVE: ASSESSMENT AND PLAN:
--- NOTE | 2020-08-20 16:56 | PN.HO ---
Progress Note (short form) - Note Progress Note: Patient seen and examined Mentioned was dizzy in AM but now feels better. Last Vital Signs Temp Pulse Resp BP Pulse Ox 98.7 F 108 H 20 97/57 L 95 08/20/20 14:40 08/20/20 14:40 08/20/20 14:40 08/20/20 14:40 08/20/20 10:00 Cor: RSR, No murmurs, No gallops Lungs: decreased breaath sounds lt. lung base. Soft tissue edema and srosanguinous drainage at Lt. pleurx catheter site Abd: Soft, Normal bowel sounds, No organomegaly Ext:No significant edema Labs/Meds reviewed 08/20/20 07:29 08/20/20 06:00 A/P 59 y/o with metastatic NSCLC with EGFR mutation On osimertinib since end may Improved pleural effusion Admitted with fever Pleurx was taken out on 08/15/20 Soft tissue swelling and serodsanguinous drainage at pleur x catheter site Also with loculated effusion discussed with ID --continuing antibiotics Discussed with IR --, if the tract does not close with antibiotics and conservative management may need ? pigtail catheter placement for 2-3days and removal continue conservative management for now Continue osimertinib 80 mg daily
[2020-08-20] MEDS: OSIMERTINIB 80 MG PO SCH (17:05)
--- NOTE | 2020-08-20 18:33 | PN ---
Teaching Attending Note Name of Resident: Wilfredo Roa ATTENDING PHYSICIAN STATEMENT I saw and evaluated the patient. I reviewed the resident's note and discussed the case with the resident. I agree with the resident's findings and plan as documented. SUBJECTIVE: Patient is comfortable with NAD OBJECTIVE: Vital Signs Temperature 98.7 F 08/20/20 14:40 Pulse Rate 108 H 08/20/20 14:40 Respiratory Rate 20 08/20/20 14:40 Blood Pressure 97/57 L 08/20/20 14:40 O2 Sat by Pulse Oximetry (%) 95 08/20/20 10:00 PE: per resident's note CBCD WBC 8.9 K/mm3 (4.0-10.0) 08/20/20 07:29 RBC 3.36 M/mm3 (3.60-5.2) L 08/20/20 07:29 Hgb 8.8 GM/dL (10.7-15.3) L 08/20/20 07:29 Hct 27.1 % (32.4-45.2) L 08/20/20 07:29 MCV 80.6 fl (80-96) 08/20/20 07:29 MCHC 32.4 g/dl (32.0-36.0) 08/20/20 07:29 RDW 15.4 % (11.6-15.6) 08/20/20 07:29 Plt Count 261 K/MM3 (134-434) D 08/20/20 07:29 MPV 10.3 fl (7.5-11.1) 08/20/20 07:29 CMP Sodium 139 mmol/L (136-145) 08/20/20 06:00 Potassium 3.1 mmol/L (3.5-5.1) L 08/20/20 06:00 Chloride 105 mmol/L (98-107) 08/20/20 06:00 Carbon Dioxide 26 mmol/L (21-32) 08/20/20 06:00 Anion Gap 8 MMOL/L (8-16) 08/20/20 06:00 BUN 8.6 mg/dL (7-18) 08/20/20 06:00 Creatinine 0.5 mg/dL (0.55-1.3) L 08/20/20 06:00 Random Glucose 97 mg/dL (74-106) 08/20/20 06:00 Calcium 7.3 mg/dL (8.5-10.1) L 08/20/20 06:00 Total Bilirubin 0.4 mg/dL (0.2-1) 08/19/20 06:49 AST 54 U/L (15-37) H 08/19/20 06:49 ALT 43 U/L (13-61) 08/19/20 06:49 Alkaline Phosphatase 169 U/L (45-117) H 08/19/20 06:49 Total Protein 4.8 g/dl (6.4-8.2) L 08/19/20 06:49 Albumin 1.7 g/dl (3.4-5.0) L 08/19/20 06:49 CARDIAC ENZYMES Creatine Kinase 57 U/L (26-192) 08/17/20 18:15 Troponin I < 0.02 ng/ml (0.00-0.05) 08/17/20 18:15 Current Medications Generic Name Dose Route Start Last Admin Trade Name Enoch PRN Reason Stop Dose Admin Acetaminophen 650 mg 08/17/20 22:28 08/19/20 08:59 Tylenol - PO 650 mg Q4H PRN Administration FEVER Ascorbic Acid 500 mg 08/18/20 10:00 08/20/20 09:52 Vitamin C - PO 500 mg DAILY MELBA Administration Aspirin 81 mg 08/18/20 10:00 08/20/20 09:52 Asa - PO 81 mg DAILY MELBA Administration Cholecalciferol 1,000 unit 08/18/20 10:00 08/20/20 09:52 Vitamin D3 - PO 1,000 unit DAILY MELBA Administration Enoxaparin Sodium 40 mg 08/18/20 10:00 08/20/20 09:53 Lovenox - SQ 40 mg DAILY MELBA Administration Hydrocortisone 1 applic 08/19/20 22:00 08/20/20 09:53 Hytone 1% Cream - TP 1 applic BID MELBA Administration Cefepime HCl 2 gm/ Dextrose 100 mls @ 100 mls/hr 08/18/20 10:00 08/20/20 17:05 IVPB 100 mls/hr Q8H-IV MELBA Administration Protocol Magnesium Oxide 200 mg 08/18/20 12:00 08/20/20 09:52 Mag-Ox - PO 200 mg DAILY MELBA Administration Metoprolol Succinate 50 mg 08/18/20 12:00 08/20/20 09:52 Toprol Xl - PO 50 mg DAILY MELBA Administration (Osimertinib 80mg [ 1 each 08/19/20 20:01 08/20/20 17:05 Tagrisso]) PO 1 each DAILY@1700 MELBA Administration Ondansetron HCl 4 mg 08/18/20 00:01 Zofran Injection IVPUSH Q6H PRN NAUSEA Pantoprazole Sodium 20 mg 08/18/20 10:00 08/20/20 09:52 Protonix - PO 20 mg DAILY MELBA Administration Home Medications Medication Instructions Recorded Atorvastatin Ca [Lipitor] 10 mg PO HS tablet 04/09/14 Cholecalciferol (Vitamin D3) 2,000 units PO DAILY 06/14/17 [Vitamin D3 -] Aspirin 81 mg PO DAILY 02/21/18 Potassium Chloride [K-Dur -] 10 meq PO BID 06/06/20 Metoprolol Succinate 50 mg PO DAILY 06/10/20 Acetaminophen [Tylenol] 500 mg PO QID PRN 08/17/20 Ascorbate Calcium [Vitamin C] 500 mg PO BID 08/17/20 Magnesium Oxide [Mag-Oxide] 400 mg PO DAILY 08/17/20 Omeprazole 20 mg PO DAILY 08/17/20 Osimertinib Mesylate [Tagrisso] 80 mg PO DAILY 08/17/20 Microbiology 08/20/20 01:45 Chest Gram Stain - Final 08/17/20 18:15 Back Gram Stain - Final 08/17/20 18:15 Back Wound Culture - Preliminary Non Lactose Fermenting Gnb Presumptive Mrsa (Pbp2a Pos) 08/17/20 18:30 Blood - Peripheral Venous Blood Culture - Preliminary NO GROWTH OBTAINED AFTER 48 HOURS, INCUBATION TO CONTINUE FOR 3 DAYS. 08/17/20 18:15 Blood - Peripheral Venous Blood Culture - Preliminary NO GROWTH OBTAINED AFTER 48 HOURS, INCUBATION TO CONTINUE FOR 3 DAYS. 08/17/20 21:07 Urine - Urine Clean Catch Urine Culture - Final NO GROWTH OBTAINED ASSESSMENT AND PLAN: This patient is a 59yof with PMhx of HTN, HLP, with h/o L lung ca s/p chest tube removal due to having L malignant pleural effusion who presented with fever and was found to be septic. #s/p Sepsis: due to PNA VS empyema. continue cefepime , follow blood cx , tylenol for pain . CODI Barba is on the case # h/o HTN: resume BB # H/o Lung cancer. will hold tagrisso for now # Acute transaminitis hold statin for now and monitor DVT PX : Lovenox
[2020-08-21] MEDS ORDERED: PT OWN MED DRAWER 7, Y5N ONE ×5 (00:36→17:11)
[2020-08-21] MEDS: CEFEPIME 2 GM in DEXTROSE 5%-WATER 100 ML IVPB SCH ×3 (01:00→17:22)
--- NOTE | 2020-08-21 07:45 | PN ---
Progress Note, Physician History of Present Illness: PULMONARY ALERT,COMFORTABLE ,-SOB,-COUGH,-CP - Current Medication List Current Medications: Active Medications Acetaminophen (Tylenol -) 650 mg PO Q4H PRN PRN Reason: FEVER Last Admin: 08/19/20 08:59 Dose: 650 mg Documented by: Ascorbic Acid (Vitamin C -) 500 mg PO DAILY ON LICENSE OF [facility] Last Admin: 08/20/20 09:52 Dose: 500 mg Documented by: Aspirin (Asa -) 81 mg PO DAILY ON LICENSE OF [facility] Last Admin: 08/20/20 09:52 Dose: 81 mg Documented by: Cholecalciferol (Vitamin D3 -) 1,000 unit PO DAILY ON LICENSE OF [facility] Last Admin: 08/20/20 09:52 Dose: 1,000 unit Documented by: Enoxaparin Sodium (Lovenox -) 40 mg SQ DAILY ON LICENSE OF [facility] Last Admin: 08/20/20 09:53 Dose: 40 mg Documented by: Hydrocortisone (Hytone 1% Cream -) 1 applic TP BID ON LICENSE OF [facility] Last Admin: 08/21/20 00:00 Dose: 1 applic Documented by: Cefepime HCl 2 gm/ Dextrose 100 mls @ 100 mls/hr IVPB Q8H-IV ON LICENSE OF [facility]; Protocol Last Admin: 08/21/20 01:00 Dose: 100 mls/hr Documented by: Magnesium Oxide (Mag-Ox -) 200 mg PO DAILY ON LICENSE OF [facility] Last Admin: 08/20/20 09:52 Dose: 200 mg Documented by: Metoprolol Succinate (Toprol Xl -) 50 mg PO DAILY ON LICENSE OF [facility] Last Admin: 08/20/20 09:52 Dose: 50 mg Documented by: (Osimertinib 80mg [ (Tagrisso])) 1 each PO DAILY@1700 ON LICENSE OF [facility] Last Admin: 08/20/20 17:05 Dose: 1 each Documented by: Ondansetron HCl (Zofran Injection) 4 mg IVPUSH Q6H PRN PRN Reason: NAUSEA Pantoprazole Sodium (Protonix -) 20 mg PO DAILY ON LICENSE OF [facility] Last Admin: 08/20/20 09:52 Dose: 20 mg Documented by: - Objective Vital Signs: Vital Signs Temperature 100.0 F H 08/21/20 06:00 Pulse Rate 96 H 08/21/20 06:00 Respiratory Rate 20 08/21/20 06:00 Blood Pressure 102/49 L 08/21/20 06:00 O2 Sat by Pulse Oximetry (%) 94 L 08/21/20 06:00 Constitutional: Yes: Calm, Thin Eyes: Yes: WNL HENT: Yes: WNL Neck: Yes: WNL Cardiovascular: Yes: Regular Rate and Rhythm, S1, S2 Respiratory: Yes: CTA Bilaterally Gastrointestinal: Yes: Normal Bowel Sounds, Soft Extremities: Yes: WNL Edema: No Labs: Assessment/Plan A/P Pneumonia vs Skin Infection Malignant Right Pleural Effusion s/p recent chest tube removal Lung Cancer HTN Hyperlipidemia - antibiotics - O2 to keep SpO2 >90% - DVT prophylaxis DR PAZ
[2020-08-21 08:27] LABS: BASO % 0.2 % (0-2.0); EOS % 0.4 % (0-4.5); HEMATOCRIT 27.1 % (32.4-45.2); LYMPH % 7.5 % (8-40); MCH 26.8 pg (25.7-33.7); MCHC 33.2 g/dl (32.0-36.0); MEAN CELL VOLUME 80.7 fl (80-96); MEAN PLT VOLUME 10.5 fl (7.5-11.1); MONO % 9.4 % (3.8-10.2); NEUT % 82.5 % (42.8-82.8); PLATELET COUNT 327 K/MM3 (134-434); RBC 3.36 M/mm3 (3.60-5.2); RDW 15.4 % (11.6-15.6); WHITE BLOOD COUNT 7.7 K/mm3 (4.0-10.0)
[2020-08-21 08:52] LABS: BLOOD UREA NITROGEN 9.2 mg/dL (7-18); CALCIUM 7.8 mg/dL (8.5-10.1); CREATININE 0.4 mg/dL (0.55-1.3); POTASSIUM 3.8 mmol/L (3.5-5.1)
[2020-08-21] MEDS: ASCORBIC ACID 500 MG TABLET (FP) PO SCH (09:38)
[2020-08-21] MEDS: ASPIRIN 81 MG CHEWABLE TABLETS PO SCH (09:38)
[2020-08-21] MEDS: PANTOPRAZOLE 20 MG TABLET PO SCH (09:38)
[2020-08-21] MEDS: CHOLECALCIFEROL (VIT D3) 1,000 UNIT (25 MCG) TABLET PO SCH (09:38)
[2020-08-21] MEDS: ENOXAPARIN NA (PORCINE) 40 MG/0.4 ML DISP.SYRIN SQ SCH (09:38)
[2020-08-21] MEDS: MAGNESIUM OXIDE 400 MG TABLET (FP) PO SCH (09:39)
[2020-08-21] MEDS: HYDROCORTISONE 1% TOPICAL CREAM 30 GM TUBE TP SCH ×3 (09:39→21:38)
--- NOTE | 2020-08-21 11:06 | PN ---
Progress Note, Physician History of Present Illness: stable feels good spiked a low grade fever - Current Medication List Current Medications: Active Medications Acetaminophen (Tylenol -) 650 mg PO Q4H PRN PRN Reason: FEVER Last Admin: 08/19/20 08:59 Dose: 650 mg Documented by: Ascorbic Acid (Vitamin C -) 500 mg PO DAILY [facility] Last Admin: 08/21/20 09:38 Dose: 500 mg Documented by: Aspirin (Asa -) 81 mg PO DAILY [facility] Last Admin: 08/21/20 09:38 Dose: 81 mg Documented by: Cholecalciferol (Vitamin D3 -) 1,000 unit PO DAILY [facility] Last Admin: 08/21/20 09:38 Dose: 1,000 unit Documented by: Enoxaparin Sodium (Lovenox -) 40 mg SQ DAILY [facility] Last Admin: 08/21/20 09:38 Dose: 40 mg Documented by: Hydrocortisone (Hytone 1% Cream -) 1 applic TP BID [facility] Last Admin: 08/21/20 09:39 Dose: 1 applic Documented by: Cefepime HCl 2 gm/ Dextrose 100 mls @ 100 mls/hr IVPB Q8H-IV [facility]; Protocol Last Admin: 08/21/20 09:38 Dose: 100 mls/hr Documented by: Magnesium Oxide (Mag-Ox -) 200 mg PO DAILY [facility] Last Admin: 08/21/20 09:39 Dose: 200 mg Documented by: Metoprolol Succinate (Toprol Xl -) 50 mg PO DAILY [facility] Last Admin: 08/21/20 09:38 Dose: 50 mg Documented by: (Osimertinib 80mg [ (Tagrisso])) 1 each PO DAILY@1700 [facility] Last Admin: 08/20/20 17:05 Dose: 1 each Documented by: Ondansetron HCl (Zofran Injection) 4 mg IVPUSH Q6H PRN PRN Reason: NAUSEA Pantoprazole Sodium (Protonix -) 20 mg PO DAILY [facility] Last Admin: 08/21/20 09:38 Dose: 20 mg Documented by: - Objective Vital Signs: Vital Signs Temperature 98.1 F 08/21/20 10:00 Pulse Rate 126 H 08/21/20 10:00 Respiratory Rate 20 08/21/20 10:00 Blood Pressure 114/68 08/21/20 10:00 O2 Sat by Pulse Oximetry (%) 96 08/21/20 10:00 Constitutional: Yes: No Distress, Calm Cardiovascular: Yes: S1, S2 Respiratory: Yes: Regular, CTA Bilaterally Musculoskeletal: Yes: WNL Extremities: Yes: WNL Neurological: Yes: Alert, Oriented Psychiatric: Yes: Alert, Oriented Labs: CBC, BMP 08/21/20 06:45 08/21/20 06:45 INR, PTT INR 1.25 (0.83-1.09) H 08/17/20 18:15 Assessment/Plan Problem List - Problems (1) Fever Code(s): R50.9 - FEVER, UNSPECIFIED Qualifiers: Fever type: unspecified Qualified Code(s): R50.9 - Fever, unspecified (2) Lung cancer Code(s): C34.90 - MALIGNANT NEOPLASM OF UNSP PART OF UNSP BRONCHUS OR LUNG Qualifiers: Laterality: unspecified laterality Lung location: unspecified part of lung Qualified Code(s): C34.90 - Malignant neoplasm of unspecified part of unspecified bronchus or lung (3) Malignant pleural effusion Code(s): J91.0 - MALIGNANT PLEURAL EFFUSION plan will add vanco continue cefepime suggest a pig tail for couple of days and also fluid cx
--- NOTE | 2020-08-21 12:07 | PN ---
Physical Exam: SUBJECTIVE: Patient seen and examined today, in no acute distress, endorsed 1 episode of diarrhea over night. Denies any F/C/N/V/D, CP, SOB. OBJECTIVE: Vital Signs Period Temp Pulse Resp BP Sys/Gonzalez Pulse Ox Last 24 Hr 98.1 F-100.0 F 96-126 20-20 97-114/49-68 94-96 GENERAL: The patient is awake, alert, and fully oriented, in no acute distress. HEAD: Normal with no signs of trauma. EYES: PERRL, extraocular movements intact, sclera anicteric, conjunctiva clear. No ptosis. NECK: Trachea midline, full range of motion, supple. LUNGS: Right sided breath sounds normal, improved breath sounds at the L lung base. HEART: Regular rate and rhythm, S1, S2 without murmur, rub or gallop. CHEST: decreased serous drainage at previous chest tube site. No erythema. No pus. Healing. ABDOMEN: Soft, nontender, nondistended, normoactive bowel sounds EXTREMITIES: 2+ pulses, warm, well-perfused, no edema. NEUROLOGICAL: Normal speech, gait not observed. PSYCH: Normal mood, normal affect. SKIN: Warm, dry, normal turgor, no rashes or lesions noted except as above Laboratory Results - last 24 hr CBC, BMP 08/21/20 06:45 08/21/20 06:45 08/17/20 18:15 Gram Stain - Final Back Wound Culture - Preliminary Non Lactose Fermenting Gnb Mr S Aureus Beta Hemolytic Strep 08/20/20 01:45 Gram Stain - Final Chest Wound Culture - Preliminary Presumptive Mrsa (Pbp2a Pos) 08/17/20 18:30 Blood Culture - Preliminary Blood - Peripheral Venous NO GROWTH OBTAINED AFTER 72 HOURS, INCUBATION TO CONTINUE FOR 2 DAYS. 08/17/20 18:15 Blood Culture - Preliminary Blood - Peripheral Venous NO GROWTH OBTAINED AFTER 72 HOURS, INCUBATION TO CONTINUE FOR 2 DAYS. 08/17/20 21:07 Urine Culture - Final Urine - Urine Clean Catch NO GROWTH OBTAINED Active Medications Generic Name Dose Route Start Last Admin Trade Name Freq PRN Reason Stop Dose Admin Acetaminophen 650 mg 08/17/20 22:28 08/19/20 08:59 Tylenol - PO 650 mg Q4H PRN Administration FEVER Ascorbic Acid 500 mg 08/18/20 10:00 08/21/20 09:38 Vitamin C - PO 500 mg DAILY MELBA Administration Aspirin 81 mg 08/18/20 10:00 08/21/20 09:38 Asa - PO 81 mg DAILY MELBA Administration Cholecalciferol 1,000 unit 08/18/20 10:00 08/21/20 09:38 Vitamin D3 - PO 1,000 unit DAILY MELBA Administration Enoxaparin Sodium 40 mg 08/18/20 10:00 08/21/20 09:38 Lovenox - SQ 40 mg DAILY MELBA Administration Hydrocortisone 1 applic 08/19/20 22:00 08/21/20 09:39 Hytone 1% Cream - TP 1 applic BID MELBA Administration Cefepime HCl 2 gm/ Dextrose 100 mls @ 100 mls/hr 08/18/20 10:00 08/21/20 09:38 IVPB 100 mls/hr Q8H-IV MELBA Administration Protocol Vancomycin HCl 1,250 mg/ 250 mls @ 250 mls/2 hr 08/21/20 12:00 Dextrose IVPB Q24H MELBA Protocol Magnesium Oxide 200 mg 08/18/20 12:00 08/21/20 09:39 Mag-Ox - PO 200 mg DAILY MELBA Administration Metoprolol Succinate 50 mg 08/18/20 12:00 08/21/20 09:38 Toprol Xl - PO 50 mg DAILY MELBA Administration (Osimertinib 80mg [ 1 each 08/19/20 20:01 08/20/20 17:05 Tagrisso]) PO 1 each DAILY@1700 MELBA Administration Ondansetron HCl 4 mg 08/18/20 00:01 Zofran Injection IVPUSH Q6H PRN NAUSEA Pantoprazole Sodium 20 mg 08/18/20 10:00 08/21/20 09:38 Protonix - PO 20 mg DAILY MELBA Administration ASSESSMENT/PLAN: 59 yo F w/ PMHx of HTN, HLD, GERD, Lung CA (Dr. Smallwood) presents with complaints of a fever of 102, found to be septic on admission. Currently s/p removal of pleurx catheter on 08/15/2020 which was placed in May for a pleural effusion. Resolved Sepsis 2/2 Pulmonary Infection: R/O Post Obstructive Pneumonia/Empyema -Afebrile w.o white count -CT: shows left pleural fluid collections -Hx recent hydro thorax in 05/2020 -c/w abx Resolved Sepsis 2/2 RO Wound Infection 2/2 Pleurx Catheter Site -L sided previous Pleurex site is healing w/ minimal drainage -Per ID -c/w Cefepime -Start Vanc -Suggests Pigtail -Per Heme Onc -If the tract does not close may need pigtail catheter placement for 2-3days and removal Hx of NSCLC w/ EGFR Mutation -Per HemeOnc -c/w Osimertinib HTN -BP WNL -c/w Toprol 50mg PPX -GI: Protonix -DVT: Lovenox FEN: -No standing fluids -Lytes -Mg/Vit D/Vit C -Regular diet Dispo: Continue to monitor on floors Visit type - Emergency Visit Emergency Visit: No - New Patient This patient is new to me today: No - Critical Care Critical Care patient: No - Discharge Referral Referred to [facility] Med P.C.: No ATTENDING PHYSICIAN STATEMENT I saw and evaluated the patient. I reviewed the resident's note and discussed the case with the resident. I agree with the resident's findings and plan as documented. SUBJECTIVE: OBJECTIVE: ASSESSMENT AND PLAN:
[2020-08-21] MEDS: VANCOMYCIN HCL 1,250 MG in DEXTROSE 5%-WATER - 250 ML IVPB SCH (12:52)
[2020-08-21] MEDS: OSIMERTINIB 80 MG PO SCH (17:22)
--- NOTE | 2020-08-21 18:51 | PN ---
Teaching Attending Note Name of Resident: Wilfredo Roa ATTENDING PHYSICIAN STATEMENT I saw and evaluated the patient. I reviewed the resident's note and discussed the case with the resident. I agree with the resident's findings and plan as documented. SUBJECTIVE: This patient is sitting comfortably With NAD. OBJECTIVE: Vital Signs Temperature 98.8 F 08/21/20 18:42 Pulse Rate 100 H 08/21/20 18:42 Respiratory Rate 20 08/21/20 18:42 Blood Pressure 96/55 L 08/21/20 18:42 O2 Sat by Pulse Oximetry (%) 97 08/21/20 18:42 PE: per resident's note CBCD WBC 7.7 K/mm3 (4.0-10.0) 08/21/20 06:45 RBC 3.36 M/mm3 (3.60-5.2) L 08/21/20 06:45 Hgb 9.0 GM/dL (10.7-15.3) L 08/21/20 06:45 Hct 27.1 % (32.4-45.2) L 08/21/20 06:45 MCV 80.7 fl (80-96) 08/21/20 06:45 MCHC 33.2 g/dl (32.0-36.0) 08/21/20 06:45 RDW 15.4 % (11.6-15.6) 08/21/20 06:45 Plt Count 327 K/MM3 (134-434) D 08/21/20 06:45 MPV 10.5 fl (7.5-11.1) 08/21/20 06:45 CMP Sodium 136 mmol/L (136-145) 08/21/20 06:45 Potassium 3.8 mmol/L (3.5-5.1) 08/21/20 06:45 Chloride 101 mmol/L (98-107) 08/21/20 06:45 Carbon Dioxide 27 mmol/L (21-32) 08/21/20 06:45 Anion Gap 8 MMOL/L (8-16) 08/21/20 06:45 BUN 9.2 mg/dL (7-18) 08/21/20 06:45 Creatinine 0.4 mg/dL (0.55-1.3) L 08/21/20 06:45 Random Glucose 86 mg/dL (74-106) 08/21/20 06:45 Calcium 7.8 mg/dL (8.5-10.1) L 08/21/20 06:45 Total Bilirubin 0.4 mg/dL (0.2-1) 08/19/20 06:49 AST 54 U/L (15-37) H 08/19/20 06:49 ALT 43 U/L (13-61) 08/19/20 06:49 Alkaline Phosphatase 169 U/L (45-117) H 08/19/20 06:49 Total Protein 4.8 g/dl (6.4-8.2) L 08/19/20 06:49 Albumin 1.7 g/dl (3.4-5.0) L 08/19/20 06:49 CARDIAC ENZYMES Creatine Kinase 57 U/L (26-192) 08/17/20 18:15 Troponin I < 0.02 ng/ml (0.00-0.05) 08/17/20 18:15 Current Medications Generic Name Dose Route Start Last Admin Trade Name Enoch PRN Reason Stop Dose Admin Acetaminophen 650 mg 08/17/20 22:28 08/19/20 08:59 Tylenol - PO 650 mg Q4H PRN Administration FEVER Ascorbic Acid 500 mg 08/18/20 10:00 08/21/20 09:38 Vitamin C - PO 500 mg DAILY MELBA Administration Aspirin 81 mg 08/18/20 10:00 08/21/20 09:38 Asa - PO 81 mg DAILY MELBA Administration Cholecalciferol 1,000 unit 08/18/20 10:00 08/21/20 09:38 Vitamin D3 - PO 1,000 unit DAILY MELBA Administration Enoxaparin Sodium 40 mg 08/18/20 10:00 08/21/20 09:38 Lovenox - SQ 40 mg DAILY MELBA Administration Hydrocortisone 1 applic 08/19/20 22:00 08/21/20 09:39 Hytone 1% Cream - TP 1 applic BID MELBA Administration Cefepime HCl 2 gm/ Dextrose 100 mls @ 100 mls/hr 08/18/20 10:00 08/21/20 17:22 IVPB 100 mls/hr Q8H-IV MELBA Administration Protocol Vancomycin HCl 1,250 mg/ 250 mls @ 250 mls/2 hr 08/21/20 12:00 08/21/20 12:52 Dextrose IVPB 250 mls/2 hr Q24H MELBA Administration Protocol Magnesium Oxide 200 mg 08/18/20 12:00 08/21/20 09:39 Mag-Ox - PO 200 mg DAILY MELBA Administration Metoprolol Succinate 50 mg 08/18/20 12:00 08/21/20 09:38 Toprol Xl - PO 50 mg DAILY MELBA Administration (Osimertinib 80mg [ 1 each 08/19/20 20:01 08/21/20 17:22 Tagrisso]) PO 1 each DAILY@1700 MELBA Administration Ondansetron HCl 4 mg 08/18/20 00:01 Zofran Injection IVPUSH Q6H PRN NAUSEA Pantoprazole Sodium 20 mg 08/18/20 10:00 08/21/20 09:38 Protonix - PO 20 mg DAILY MELBA Administration Home Medications Medication Instructions Recorded Atorvastatin Ca [Lipitor] 10 mg PO HS tablet 04/09/14 Cholecalciferol (Vitamin D3) 2,000 units PO DAILY 06/14/17 [Vitamin D3 -] Aspirin 81 mg PO DAILY 02/21/18 Potassium Chloride [K-Dur -] 10 meq PO BID 06/06/20 Metoprolol Succinate 50 mg PO DAILY 06/10/20 Acetaminophen [Tylenol] 500 mg PO QID PRN 08/17/20 Ascorbate Calcium [Vitamin C] 500 mg PO BID 08/17/20 Magnesium Oxide [Mag-Oxide] 400 mg PO DAILY 08/17/20 Omeprazole 20 mg PO DAILY 08/17/20 Osimertinib Mesylate [Tagrisso] 80 mg PO DAILY 08/17/20 Microbiology 08/17/20 18:30 Blood - Peripheral Venous Blood Culture - Preliminary NO GROWTH OBTAINED AFTER 96 HOURS, INCUBATION TO CONTINUE FOR 1 DAYS. 08/17/20 18:15 Blood - Peripheral Venous Blood Culture - Preliminary NO GROWTH OBTAINED AFTER 96 HOURS, INCUBATION TO CONTINUE FOR 1 DAYS. 08/20/20 01:45 Chest Gram Stain - Final 08/20/20 01:45 Chest Wound Culture - Preliminary Presumptive Mrsa (Pbp2a Pos) 08/17/20 18:15 Back Gram Stain - Final 08/17/20 18:15 Back Wound Culture - Preliminary Non Lactose Fermenting Gnb Mr S Aureus Beta Hemolytic Strep 08/17/20 21:07 Urine - Urine Clean Catch Urine Culture - Final NO GROWTH OBTAINED ASSESSMENT AND PLAN: This patient is a 59yof with PMhx of HTN, HLP, with h/o L lung ca s/p chest tube removal due to having L malignant pleural effusion who presented with fever and was found to be septic. #s/p Sepsis: due to PNA VS empyema. chest wound cx is growing Presumptive Mrsa (Pbp2a Pos) cont Abx, added vanco for presumptive MRSA , MRSA isolation , so far blood cx negative , tylenol for pain . CODI Jameson is on the case , continue current meds. # h/o HTN: resume BB # H/o Lung cancer. will hold tagrisso for now # Acute transaminitis hold statin for now , continue to follow DVT PX : Lovenox
[2020-08-22] MEDS ORDERED: PT OWN MED DRAWER 7, Y5N ONE ×5 (00:57→17:26)
[2020-08-22] MEDS: CEFEPIME 2 GM in DEXTROSE 5%-WATER 100 ML IVPB SCH ×3 (01:46→17:24)
[2020-08-22] MEDS: ACETAMINOPHEN 325 MG TABLET (FP) PO PRN (01:46)
[2020-08-22 07:53] LABS: BASO % 0.3 % (0-2.0); EOS % 1.1 % (0-4.5); HEMATOCRIT 25.1 % (32.4-45.2); HEMOGLOBIN 8.2 GM/dL (10.7-15.3); LYMPH % 7.8 % (8-40); MCH 26.1 pg (25.7-33.7); MCHC 32.7 g/dl (32.0-36.0); MEAN CELL VOLUME 79.9 fl (80-96); MEAN PLT VOLUME 9.8 fl (7.5-11.1); MONO % 11.6 % (3.8-10.2); NEUT % 79.2 % (42.8-82.8); PLATELET COUNT 336 K/MM3 (134-434); RBC 3.15 M/mm3 (3.60-5.2); RDW 15.3 % (11.6-15.6); WHITE BLOOD COUNT 6.6 K/mm3 (4.0-10.0)
--- NOTE | 2020-08-22 08:19 | PN ---
Progress Note, Physician History of Present Illness: still spiking low grade fevers - Current Medication List Current Medications: Active Medications Acetaminophen (Tylenol -) 650 mg PO Q4H PRN PRN Reason: FEVER Last Admin: 08/22/20 01:46 Dose: 650 mg Documented by: Ascorbic Acid (Vitamin C -) 500 mg PO DAILY [facility] Last Admin: 08/21/20 09:38 Dose: 500 mg Documented by: Aspirin (Asa -) 81 mg PO DAILY [facility] Last Admin: 08/21/20 09:38 Dose: 81 mg Documented by: Cholecalciferol (Vitamin D3 -) 1,000 unit PO DAILY [facility] Last Admin: 08/21/20 09:38 Dose: 1,000 unit Documented by: Enoxaparin Sodium (Lovenox -) 40 mg SQ DAILY [facility] Last Admin: 08/21/20 09:38 Dose: 40 mg Documented by: Hydrocortisone (Hytone 1% Cream -) 1 applic TP BID [facility] Last Admin: 08/21/20 21:38 Dose: 1 applic Documented by: Cefepime HCl 2 gm/ Dextrose 100 mls @ 100 mls/hr IVPB Q8H-IV [facility]; Protocol Last Admin: 08/22/20 01:46 Dose: 100 mls/hr Documented by: Vancomycin HCl 1,250 mg/ (Dextrose) 250 mls @ 250 mls/2 hr IVPB Q24H [facility]; Protocol Last Admin: 08/21/20 12:52 Dose: 250 mls/2 hr Documented by: Magnesium Oxide (Mag-Ox -) 200 mg PO DAILY [facility] Last Admin: 08/21/20 09:39 Dose: 200 mg Documented by: Metoprolol Succinate (Toprol Xl -) 50 mg PO DAILY [facility] Last Admin: 08/21/20 09:38 Dose: 50 mg Documented by: (Osimertinib 80mg [ (Tagrisso])) 1 each PO DAILY@1700 [facility] Last Admin: 08/21/20 17:22 Dose: 1 each Documented by: Ondansetron HCl (Zofran Injection) 4 mg IVPUSH Q6H PRN PRN Reason: NAUSEA Pantoprazole Sodium (Protonix -) 20 mg PO DAILY [facility] Last Admin: 08/21/20 09:38 Dose: 20 mg Documented by: - Objective Vital Signs: Vital Signs Temperature 99.1 F 08/22/20 06:00 Pulse Rate 104 H 08/22/20 06:00 Respiratory Rate 08/22/20 06:00 Blood Pressure 113/63 08/22/20 06:00 O2 Sat by Pulse Oximetry (%) 94 L 08/22/20 06:00 Constitutional: Yes: No Distress, Calm Cardiovascular: Yes: S1, S2 Respiratory: Yes: Regular, Poor Air Entry (lower lobes) Gastrointestinal: Yes: Normal Bowel Sounds, Soft Musculoskeletal: Yes: WNL Extremities: Yes: WNL Neurological: Yes: Alert, Oriented Psychiatric: Yes: Alert, Oriented Labs: CBC, BMP 08/22/20 06:32 INR, PTT INR 1.25 (0.83-1.09) H 08/17/20 18:15 Assessment/Plan Problem List - Problems (1) Fever Code(s): R50.9 - FEVER, UNSPECIFIED Qualifiers: Fever type: unspecified Qualified Code(s): R50.9 - Fever, unspecified (2) Lung cancer Code(s): C34.90 - MALIGNANT NEOPLASM OF UNSP PART OF UNSP BRONCHUS OR LUNG Qualifiers: Laterality: unspecified laterality Lung location: unspecified part of lung Qualified Code(s): C34.90 - Malignant neoplasm of unspecified part of unspecified bronchus or lung (3) Malignant pleural effusion Code(s): J91.0 - MALIGNANT PLEURAL EFFUSION plan will add vanco continue cefepime further plan rest as per team onc on case
[2020-08-22 08:28] LABS: ALBUMIN 1.7 g/dl (3.4-5.0); BILIRUBIN,TOTAL 0.2 mg/dL (0.2-1); BLOOD UREA NITROGEN 15.5 mg/dL (7-18); CALCIUM 7.8 mg/dL (8.5-10.1); CREATININE 0.7 mg/dL (0.55-1.3); MAGNESIUM 2.1 mg/dL (1.8-2.4); PHOSPHOROUS 3.6 mg/dL (2.5-4.9); POTASSIUM 3.6 mmol/L (3.5-5.1)
[2020-08-22] MEDS: ENOXAPARIN NA (PORCINE) 40 MG/0.4 ML DISP.SYRIN SQ SCH (09:33)
[2020-08-22] MEDS: ASPIRIN 81 MG CHEWABLE TABLETS PO SCH (09:33)
[2020-08-22] MEDS: CHOLECALCIFEROL (VIT D3) 1,000 UNIT (25 MCG) TABLET PO SCH (09:33)
[2020-08-22] MEDS: ASCORBIC ACID 500 MG TABLET (FP) PO SCH (09:33)
[2020-08-22] MEDS: PANTOPRAZOLE 20 MG TABLET PO SCH (09:33)
[2020-08-22] MEDS: MAGNESIUM OXIDE 400 MG TABLET (FP) PO SCH (09:34)
[2020-08-22] MEDS: HYDROCORTISONE 1% TOPICAL CREAM 30 GM TUBE TP SCH ×2 (09:42→22:50)
--- NOTE | 2020-08-22 11:11 | PN ---
Progress Note (short form) - Note Progress Note: PULMONARY Still some low grade temps. Dressing taken down and purulent drainage expressed from incision. No evidence of pleural fluid. Vital Signs Period Temp Pulse Resp BP Sys/Gonzalez Pulse Ox Last 24 Hr 97.4 F-100.2 F 100-108 18-20 96-113/53-63 94-97 Intake & Output 08/19/20 08/20/20 08/21/20 08/22/20 23:59 23:59 23:59 23:59 Intake Total 2960 1740 950 380 Balance 2960 1740 950 380 Weight 43.545 kg Gen: NAD at rest Heart: RRR Lung: decreased breath sounds left base Abd: soft, nontender Ext: no edema CBC, BMP 08/22/20 06:32 08/22/20 06:32 Active Medications Acetaminophen (Tylenol -) 650 mg PO Q4H PRN PRN Reason: FEVER Last Admin: 08/22/20 01:46 Dose: 650 mg Documented by: Ascorbic Acid (Vitamin C -) 500 mg PO DAILY [facility] Last Admin: 08/22/20 09:33 Dose: 500 mg Documented by: Aspirin (Asa -) 81 mg PO DAILY [facility] Last Admin: 08/22/20 09:33 Dose: 81 mg Documented by: Cholecalciferol (Vitamin D3 -) 1,000 unit PO DAILY [facility] Last Admin: 08/22/20 09:33 Dose: 1,000 unit Documented by: Enoxaparin Sodium (Lovenox -) 40 mg SQ DAILY [facility] Last Admin: 08/22/20 09:33 Dose: 40 mg Documented by: Hydrocortisone (Hytone 1% Cream -) 1 applic TP BID [facility] Last Admin: 08/22/20 09:42 Dose: 1 applic Documented by: Cefepime HCl 2 gm/ Dextrose 100 mls @ 100 mls/hr IVPB Q8H-IV [facility]; Protocol Last Admin: 08/22/20 09:32 Dose: 100 mls/hr Documented by: Vancomycin HCl 1,250 mg/ (Dextrose) 250 mls @ 250 mls/2 hr IVPB Q24H [facility]; Protocol Last Admin: 08/21/20 12:52 Dose: 250 mls/2 hr Documented by: Magnesium Oxide (Mag-Ox -) 200 mg PO DAILY [facility] Last Admin: 08/22/20 09:34 Dose: 200 mg Documented by: Metoprolol Succinate (Toprol Xl -) 50 mg PO DAILY [facility] Last Admin: 08/22/20 09:33 Dose: 50 mg Documented by: (Osimertinib 80mg [ (Tagrisso])) 1 each PO DAILY@1700 [facility] Last Admin: 08/21/20 17:22 Dose: 1 each Documented by: Ondansetron HCl (Zofran Injection) 4 mg IVPUSH Q6H PRN PRN Reason: NAUSEA Pantoprazole Sodium (Protonix -) 20 mg PO DAILY [facility] Last Admin: 08/22/20 09:33 Dose: 20 mg Documented by: A/P Pneumonia vs Subcutaneous Abscess Malignant Right Pleural Effusion s/p recent chest tube removal Lung Cancer HTN Hyperlipidemia - continue antibiotics - f/u cultures - may need I&D if continued purulent drainage - O2 to keep SpO2 >90% - DVT prophylaxis
[2020-08-22] MEDS: VANCOMYCIN HCL 1,250 MG in DEXTROSE 5%-WATER - 250 ML IVPB SCH (11:36)
--- NOTE | 2020-08-22 13:21 | PN ---
Physical Exam: SUBJECTIVE: Patient seen and examined endorsed feeling sweaty overnight, found to have lowgrade temp (100.2), was transferred to isolation room. States diarrhea has resolved. Denies LUCIA, changes in vision, CP, SoB, changes in bowel/bladder. OBJECTIVE: Vital Signs Period Temp Pulse Resp BP Sys/Gonzalez Pulse Ox Last 24 Hr 97.4 F-100.2 F 100-108 18-20 96-113/53-63 94-97 GENERAL: The patient is awake, alert, and fully oriented, in no acute distress. HEAD: Normal with no signs of trauma. EYES: PERRL, extraocular movements intact, sclera anicteric, conjunctiva clear. No ptosis. NECK: Trachea midline, full range of motion, supple. LUNGS: Right sided breath sounds normal, improved breath sounds at the L lung base. HEART: Regular rate and rhythm, S1, S2 without murmur, rub or gallop. CHEST: increased serosanguinous drainage at pleurex site. Decreased swelling, decreased pain to palpation ABDOMEN: Soft, nontender, nondistended, normoactive bowel sounds EXTREMITIES: 2+ pulses, warm, well-perfused, no edema. NEUROLOGICAL: Normal speech, gait not observed. PSYCH: Normal mood, normal affect. SKIN: Warm, dry, normal turgor, no rashes or lesions noted except as above Laboratory Results - last 24 hr CBC, BMP 08/22/20 06:32 08/22/20 06:32 08/17/20 18:15 Gram Stain - Final Back Wound Culture - Preliminary Acinetobacter Lwoffii Mr S Aureus Beta Hemolytic Strep 08/20/20 01:45 Gram Stain - Final Chest Wound Culture - Final Mr S Aureus 08/17/20 18:30 Blood Culture - Preliminary Blood - Peripheral Venous NO GROWTH OBTAINED AFTER 96 HOURS, INCUBATION TO CONTINUE FOR 1 DAYS. 08/17/20 18:15 Blood Culture - Preliminary Blood - Peripheral Venous NO GROWTH OBTAINED AFTER 96 HOURS, INCUBATION TO CONTINUE FOR 1 DAYS. 08/17/20 21:07 Urine Culture - Final Urine - Urine Clean Catch NO GROWTH OBTAINED Active Medications Generic Name Dose Route Start Last Admin Trade Name Freq PRN Reason Stop Dose Admin Acetaminophen 650 mg 08/17/20 22:28 08/22/20 01:46 Tylenol - PO 650 mg Q4H PRN Administration FEVER Ascorbic Acid 500 mg 08/18/20 10:00 08/22/20 09:33 Vitamin C - PO 500 mg DAILY [facility] Administration Aspirin 81 mg 08/18/20 10:00 08/22/20 09:33 Asa - PO 81 mg DAILY [facility] Administration Cholecalciferol 1,000 unit 08/18/20 10:00 08/22/20 09:33 Vitamin D3 - PO 1,000 unit DAILY [facility] Administration Enoxaparin Sodium 40 mg 08/18/20 10:00 08/22/20 09:33 Lovenox - SQ 40 mg DAILY [facility] Administration Hydrocortisone 1 applic 08/19/20 22:00 08/22/20 09:42 Hytone 1% Cream - TP 1 applic BID [facility] Administration Cefepime HCl 2 gm/ Dextrose 100 mls @ 100 mls/hr 08/18/20 10:00 08/22/20 09 :32 IVPB 100 mls/hr Q8H-IV [facility] Administration Protocol Vancomycin HCl 1,250 mg/ 250 mls @ 250 mls/2 hr 08/21/20 12:00 08/22/20 11:36 Dextrose IVPB 250 mls/2 hr Q24H [facility] Administration Protocol Magnesium Oxide 200 mg 08/18/20 12:00 08/22/20 09:34 Mag-Ox - PO 200 mg DAILY [facility] Administration Metoprolol Succinate 50 mg 08/18/20 12:00 08/22/20 09:33 Toprol Xl - PO 50 mg DAILY [facility] Administration (Osimertinib 80mg [ 1 each 08/19/20 20:01 08/21/20 17:22 Tagrisso]) PO 1 each DAILY@1700 [facility] Administration Ondansetron HCl 4 mg 08/18/20 00:01 Zofran Injection IVPUSH Q6H PRN NAUSEA Pantoprazole Sodium 20 mg 08/18/20 10:00 08/22/20 09:33 Protonix - PO 20 mg DAILY [facility] Administration ASSESSMENT/PLAN: 59 yo F w/ PMHx of HTN, HLD, GERD, Lung CA (Dr. Smallwood) presents with complaints of a fever of 102, found to be septic on admission. Currently s/p removal of pleurx catheter on 08/15/2020 which was placed in May for a pleural effusion. Resolved Sepsis 2/2 RO Wound Infection 2/2 Pleurx Catheter Site -L sided previous Pleurex site is healing w/ minimal drainage -Per ID -c/w Cefepime -c/w Vanc -Multi-Disciplanary: -d/w ID/Heme-Onc/Pulm: Pending recs from multidisciplanary team -CT Surg Consulted per Heme-Onc request Resolved Sepsis 2/ Pulmonary Infection: R/O Post Obstructive Pneumonia/Empyema -Afebrile w.o white count -CT: shows left pleural fluid collections -Hx recent hydro thorax in 05/2020 -c/w abx Hx of NSCLC w/ EGFR Mutation -Per HemeOnc -c/w Osimertinib HTN -BP WNL -c/w Toprol 50mg PPX -GI: Protonix -DVT: Lovenox FEN: -No standing fluids -Lytes -Mg/Vit D/Vit C -Regular diet Dispo: Continue to monitor on floors Visit type - Emergency Visit Emergency Visit: No - New Patient This patient is new to me today: No - Critical Care Critical Care patient: No - Discharge Referral Referred to [facility] Med P.C.: No ATTENDING PHYSICIAN STATEMENT I saw and evaluated the patient. I reviewed the resident's note and discussed the case with the resident. I agree with the resident's findings and plan as documented. SUBJECTIVE: OBJECTIVE: ASSESSMENT AND PLAN:
[2020-08-22] MEDS: OSIMERTINIB 80 MG PO SCH (17:22)
--- NOTE | 2020-08-22 17:57 | PN ---
Teaching Attending Note Name of Resident: Wilfredo Roa ATTENDING PHYSICIAN STATEMENT I saw and evaluated the patient. I reviewed the resident's note and discussed the case with the resident. I agree with the resident's findings and plan as documented. SUBJECTIVE: Patient is comfortable with NAD OBJECTIVE: Vital Signs Temperature 98.4 F 08/22/20 14:47 Pulse Rate 100 H 08/22/20 14:47 Respiratory Rate 18 08/22/20 14:47 Blood Pressure 112/61 08/22/20 14:47 O2 Sat by Pulse Oximetry (%) 94 L 08/22/20 09:22 PE;per resident's note left chest draining serosangionis drainage CBCD WBC 6.6 K/mm3 (4.0-10.0) 08/22/20 06:32 RBC 3.15 M/mm3 (3.60-5.2) L 08/22/20 06:32 Hgb 8.2 GM/dL (10.7-15.3) L 08/22/20 06:32 Hct 25.1 % (32.4-45.2) L 08/22/20 06:32 MCV 79.9 fl (80-96) L 08/22/20 06:32 MCHC 32.7 g/dl (32.0-36.0) 08/22/20 06:32 RDW 15.3 % (11.6-15.6) 08/22/20 06:32 Plt Count 336 K/MM3 (134-434) 08/22/20 06:32 MPV 9.8 fl (7.5-11.1) 08/22/20 06:32 CMP Sodium 141 mmol/L (136-145) 08/22/20 06:32 Potassium 3.6 mmol/L (3.5-5.1) 08/22/20 06:32 Chloride 106 mmol/L (98-107) 08/22/20 06:32 Carbon Dioxide 28 mmol/L (21-32) 08/22/20 06:32 Anion Gap 6 MMOL/L (8-16) L 08/22/20 06:32 BUN 15.5 mg/dL (7-18) 08/22/20 06:32 Creatinine 0.7 mg/dL (0.55-1.3) 08/22/20 06:32 Random Glucose 96 mg/dL (74-106) 08/22/20 06:32 Calcium 7.8 mg/dL (8.5-10.1) L 08/22/20 06:32 Total Bilirubin 0.2 mg/dL (0.2-1) 08/22/20 06:32 AST 58 U/L (15-37) H 08/22/20 06:32 ALT 45 U/L (13-61) 08/22/20 06:32 Alkaline Phosphatase 139 U/L (45-117) H 08/22/20 06:32 Total Protein 5.0 g/dl (6.4-8.2) L 08/22/20 06:32 Albumin 1.7 g/dl (3.4-5.0) L 08/22/20 06:32 CARDIAC ENZYMES Creatine Kinase 57 U/L (26-192) 08/17/20 18:15 Troponin I < 0.02 ng/ml (0.00-0.05) 08/17/20 18:15 Current Medications Generic Name Dose Route Start Last Admin Trade Name Enoch PRN Reason Stop Dose Admin Acetaminophen 650 mg 08/17/20 22:28 08/22/20 01:46 Tylenol - PO 650 mg Q4H PRN Administration FEVER Ascorbic Acid 500 mg 08/18/20 10:00 08/22/20 09:33 Vitamin C - PO 500 mg DAILY [facility] Administration Aspirin 81 mg 08/18/20 10:00 08/22/20 09:33 Asa - PO 81 mg DAILY [facility] Administration Cholecalciferol 1,000 unit 08/18/20 10:00 08/22/20 09:33 Vitamin D3 - PO 1,000 unit DAILY [facility] Administration Enoxaparin Sodium 40 mg 08/18/20 10:00 08/22/20 09:33 Lovenox - SQ 40 mg DAILY [facility] Administration Hydrocortisone 1 applic 08/19/20 22:00 08/22/20 09:42 Hytone 1% Cream - TP 1 applic BID [facility] Administration Cefepime HCl 2 gm/ Dextrose 100 mls @ 100 mls/hr 08/18/20 10:00 08/22/20 17:24 IVPB 100 mls/hr Q8H-IV [facility] Administration Protocol Vancomycin HCl 1,250 mg/ 250 mls @ 250 mls/2 hr 08/21/20 12:00 08/22/20 11:36 Dextrose IVPB 250 mls/2 hr Q24H [facility] Administration Protocol Magnesium Oxide 200 mg 08/18/20 12:00 08/22/20 09:34 Mag-Ox - PO 200 mg DAILY [facility] Administration Metoprolol Succinate 50 mg 08/18/20 12:00 08/22/20 09:33 Toprol Xl - PO 50 mg DAILY [facility] Administration (Osimertinib 80mg [ 1 each 08/19/20 20:01 08/22/20 17:22 Tagrisso]) PO 1 each DAILY@1700 [facility] Administration Ondansetron HCl 4 mg 08/18/20 00:01 Zofran Injection IVPUSH Q6H PRN NAUSEA Pantoprazole Sodium 20 mg 08/18/20 10:00 08/22/20 09:33 Protonix - PO 20 mg DAILY [facility] Administration Home Medications Medication Instructions Recorded Atorvastatin Ca [Lipitor] 10 mg PO HS tablet 04/09/14 Cholecalciferol (Vitamin D3) 2,000 units PO DAILY 06/14/17 [Vitamin D3 -] Aspirin 81 mg PO DAILY 02/21/18 Potassium Chloride [K-Dur -] 10 meq PO BID 06/06/20 Metoprolol Succinate 50 mg PO DAILY 06/10/20 Acetaminophen [Tylenol] 500 mg PO QID PRN 08/17/20 Ascorbate Calcium [Vitamin C] 500 mg PO BID 08/17/20 Magnesium Oxide [Mag-Oxide] 400 mg PO DAILY 08/17/20 Omeprazole 20 mg PO DAILY 08/17/20 Osimertinib Mesylate [Tagrisso] 80 mg PO DAILY 08/17/20 Microbiology 08/17/20 18:15 Back Gram Stain - Final 08/17/20 18:15 Back Wound Culture - Preliminary 08/20/20 01:45 Chest Gram Stain - Final 08/20/20 01:45 Chest Wound Culture - Final Acinetobacter Lwoffii Mr S Aureus Beta Hemolytic Strep 08/17/20 18:30 Blood - Peripheral Venous Blood Culture - Preliminary NO GROWTH OBTAINED AFTER 96 HOURS, INCUBATION TO CONTINUE FOR 1 DAYS. 08/17/20 18:15 Blood - Peripheral Venous Blood Culture - Preliminary NO GROWTH OBTAINED AFTER 96 HOURS, INCUBATION TO CONTINUE FOR 1 DAYS. 08/17/20 21:07 Urine - Urine Clean Catch Urine Culture - Final NO GROWTH OBTAINED ASSESSMENT AND PLAN: This patient is a 59yof with PMhx of HTN, HLP, with h/o L lung ca s/p chest tube removal due to having L malignant pleural effusion who presented with fever and was found to be septic. #s/p Sepsis: due to PNA vs empyema. chest wound cx is growing Acinetobacter Lwoffii, Mr Sukhdev Aureus, Beta Hemolytic Strep cont Abx, added vanco for presumptive MRSA , MRSA isolation , so far blood cx negative , tylenol for pain . CODI Jameson is on the case , continue current meds. # h/o HTN: resume BB # H/o Lung cancer. will hold Tagrisso for now # Acute transaminitis hold statin for now , continue to follow DVT PX : Lovenox
--- NOTE | 2020-08-22 19:40 | PN.HO ---
Progress Note (short form) - Note Progress Note: PAtient seen and examined Feels better Serosanguinous, discharge from Lt. pleurx catheter site Last Vital Signs Temp Pulse Resp BP Pulse Ox 98.1 F 105 H 18 106/51 L 97 08/19/20 14:09 08/19/20 14:09 08/19/20 14:09 08/19/20 14:09 08/19/20 14:09 AFVSS Cor: RSR, No murmurs, No gallops Lungs: decreased breaath sounds lt. lung base. Soft tissue edema and srosanguinous drainage at Lt. pleurx catheter site Abd: Soft, Normal bowel sounds, No organomegaly Ext:No significant edema LAbs/Meds reviewed A/P 59 y/o with metastatic NSCLC with EGFR mutation On osimertinib since end may Improved pleural effusion Admitted with fever Pleurx was taken out on 08/15/20 Soft tissue swelling and serodsanguinous drainage at pleur x catheter site Also with loculated effusion continue conservative management for now Continue osimertinib 80 mg daily discussed with ID and pulmonary teams will discuss with IR
[2020-08-23] MEDS ORDERED: PT OWN MED DRAWER 7, Y5N ONE ×4 (01:41→17:47)
[2020-08-23] MEDS: CEFEPIME 2 GM in DEXTROSE 5%-WATER 100 ML IVPB SCH ×3 (01:47→17:48)
[2020-08-23 08:09] LABS: BASO % 0.2 % (0-2.0); EOS % 1.8 % (0-4.5); HEMATOCRIT 25.2 % (32.4-45.2); HEMOGLOBIN 8.3 GM/dL (10.7-15.3); MCH 26.6 pg (25.7-33.7); MCHC 33.1 g/dl (32.0-36.0); MEAN CELL VOLUME 80.5 fl (80-96); MONO % 8.7 % (3.8-10.2); NEUT % 79.3 % (42.8-82.8); PLATELET COUNT 372 K/MM3 (134-434); RBC 3.12 M/mm3 (3.60-5.2); RDW 15.2 % (11.6-15.6); WHITE BLOOD COUNT 7.2 K/mm3 (4.0-10.0)
[2020-08-23 08:26] LABS: BLOOD UREA NITROGEN 14.5 mg/dL (7-18); CALCIUM 8.2 mg/dL (8.5-10.1); CREATININE 0.5 mg/dL (0.55-1.3); POTASSIUM 3.6 mmol/L (3.5-5.1)
[2020-08-23] MEDS: HYDROCORTISONE 1% TOPICAL CREAM 30 GM TUBE TP SCH ×2 (09:29→22:40)
[2020-08-23] MEDS: ASCORBIC ACID 500 MG TABLET (FP) PO SCH (09:29)
[2020-08-23] MEDS: ENOXAPARIN NA (PORCINE) 40 MG/0.4 ML DISP.SYRIN SQ SCH (09:29)
[2020-08-23] MEDS: MAGNESIUM OXIDE 400 MG TABLET (FP) PO SCH (09:29)
[2020-08-23] MEDS: CHOLECALCIFEROL (VIT D3) 1,000 UNIT (25 MCG) TABLET PO SCH (09:29)
[2020-08-23] MEDS: PANTOPRAZOLE 20 MG TABLET PO SCH (09:29)
[2020-08-23] MEDS: ASPIRIN 81 MG CHEWABLE TABLETS PO SCH (09:29)
--- NOTE | 2020-08-23 10:05 | PN ---
Progress Note, Physician History of Present Illness: remained afebrile minimal drainage from the site - Current Medication List Current Medications: Active Medications Acetaminophen (Tylenol -) 650 mg PO Q4H PRN PRN Reason: FEVER Last Admin: 08/22/20 01:46 Dose: 650 mg Documented by: Ascorbic Acid (Vitamin C -) 500 mg PO DAILY [facility] Last Admin: 08/23/20 09:29 Dose: 500 mg Documented by: Aspirin (Asa -) 81 mg PO DAILY [facility] Last Admin: 08/23/20 09:29 Dose: 81 mg Documented by: Cholecalciferol (Vitamin D3 -) 1,000 unit PO DAILY [facility] Last Admin: 08/23/20 09:29 Dose: 1,000 unit Documented by: Enoxaparin Sodium (Lovenox -) 40 mg SQ DAILY [facility] Last Admin: 08/23/20 09:29 Dose: 40 mg Documented by: Hydrocortisone (Hytone 1% Cream -) 1 applic TP BID [facility] Last Admin: 08/23/20 09:29 Dose: 1 applic Documented by: Cefepime HCl 2 gm/ Dextrose 100 mls @ 100 mls/hr IVPB Q8H-IV [facility]; Protocol Last Admin: 08/23/20 09:28 Dose: 100 mls/hr Documented by: Vancomycin HCl 1,250 mg/ (Dextrose) 250 mls @ 250 mls/2 hr IVPB Q24H [facility]; Protocol Last Admin: 08/22/20 11:36 Dose: 250 mls/2 hr Documented by: Magnesium Oxide (Mag-Ox -) 200 mg PO DAILY [facility] Last Admin: 08/23/20 09:29 Dose: 200 mg Documented by: Metoprolol Succinate (Toprol Xl -) 50 mg PO DAILY [facility] Last Admin: 08/23/20 09:29 Dose: 50 mg Documented by: (Osimertinib 80mg [ (Tagrisso])) 1 each PO DAILY@1700 [facility] Last Admin: 08/22/20 17:22 Dose: 1 each Documented by: Ondansetron HCl (Zofran Injection) 4 mg IVPUSH Q6H PRN PRN Reason: NAUSEA Pantoprazole Sodium (Protonix -) 20 mg PO DAILY [facility] Last Admin: 08/23/20 09:29 Dose: 20 mg Documented by: - Objective Vital Signs: Vital Signs Temperature 98.7 F 08/23/20 06:00 Pulse Rate 111 H 08/23/20 06:00 Respiratory Rate 20 08/23/20 06:00 Blood Pressure 98/56 L 08/23/20 06:00 O2 Sat by Pulse Oximetry (%) 96 08/23/20 06:00 Constitutional: Yes: No Distress, Calm Cardiovascular: Yes: S1, S2 Respiratory: Yes: Regular, CTA Bilaterally Gastrointestinal: Yes: Normal Bowel Sounds, Soft Musculoskeletal: Yes: WNL Extremities: Yes: WNL Wound/Incision: Yes: Dressing Dry and Intact Psychiatric: Yes: Alert, Oriented Labs: CBC, BMP 08/23/20 07:10 08/23/20 07:10 INR, PTT INR 1.25 (0.83-1.09) H 08/17/20 18:15 Assessment/Plan Problem List - Problems (1) Fever Code(s): R50.9 - FEVER, UNSPECIFIED Qualifiers: Fever type: unspecified Qualified Code(s): R50.9 - Fever, unspecified (2) Lung cancer Code(s): C34.90 - MALIGNANT NEOPLASM OF UNSP PART OF UNSP BRONCHUS OR LUNG Qualifiers: Laterality: unspecified laterality Lung location: unspecified part of lung Qualified Code(s): C34.90 - Malignant neoplasm of unspecified part of unspecified bronchus or lung (3) Malignant pleural effusion Code(s): J91.0 - MALIGNANT PLEURAL EFFUSION plan continue abx check vanco levels tomorrow ordered wound care rest as per the team
--- NOTE | 2020-08-23 11:27 | PN ---
Progress Note (short form) - Note Progress Note: PULMONARY Afebrile Dressing removed and purulent drainage noted No evidence of pleural fluid. OBB to chair/offers no complaints Gen: NAD at rest Heart: RRR Lung: decreased breath sounds left base Abd: soft, nontender Ext: no edema labs/meds/images/notes reviewed A/P MRSA infection noted and previuos chest tube site Malignant Right Pleural Effusion s/p recent chest tube removal Lung Cancer HTN Hyperlipidemia - continue antibiotics - f/u cultures - may need I&D if continued purulent drainage - O2 to keep SpO2 >90% - DVT prophylaxis Roberto MACE MD Problem List - Problems (1) Fever Code(s): R50.9 - FEVER, UNSPECIFIED Qualifiers: Fever type: unspecified Qualified Code(s): R50.9 - Fever, unspecified (2) Lung cancer Code(s): C34.90 - MALIGNANT NEOPLASM OF UNSP PART OF UNSP BRONCHUS OR LUNG Qualifiers: Laterality: unspecified laterality Lung location: unspecified part of lung Qualified Code(s): C34.90 - Malignant neoplasm of unspecified part of unspecif ied bronchus or lung (3) Malignant pleural effusion Code(s): J91.0 - MALIGNANT PLEURAL EFFUSION
[2020-08-23] MEDS: VANCOMYCIN HCL 1,250 MG in DEXTROSE 5%-WATER - 250 ML IVPB SCH (11:56)
--- NOTE | 2020-08-23 12:35 | PN ---
Physical Exam: SUBJECTIVE: Patient seen and examined this morning in no acute distress, denies any problems overnight, denies further diarrhea or incontinence. Denies F/C, LUCIA, CP, SoB, OBJECTIVE: Vital Signs Period Temp Pulse Resp BP Sys/Gonzalez Pulse Ox Last 24 Hr 98.0 F-98.7 F 100-112 18-20 98-116/55-68 94-96 GENERAL: The patient is awake, alert, and fully oriented, in no acute distress. HEAD: Normal with no signs of trauma. EYES: PERRL, extraocular movements intact, sclera anicteric, conjunctiva clear. No ptosis. NECK: Trachea midline, full range of motion, supple. LUNGS: Right sided breath sounds normal, improved breath sounds at the L lung base, however less overall, 2/2 surgery HEART: Regular rate and rhythm, S1, S2 without murmur, rub or gallop. CHEST: Decreased drainage since yesterday, dressings clean. Decreased swelling, decreased pain to palpation ABDOMEN: Soft, nontender, nondistended, normoactive bowel sounds EXTREMITIES: 2+ pulses, warm, well-perfused, no edema. NEUROLOGICAL: Normal speech, gait not observed. PSYCH: Normal mood, normal affect. SKIN: Warm, dry, normal turgor, no rashes or lesions noted except as above Laboratory Results - last 24 hr CBC, BMP 08/23/20 07:10 08/23/20 07:10 Active Medications Generic Name Dose Route Start Last Admin Trade Name Freq PRN Reason Stop Dose Admin Acetaminophen 650 mg 08/17/20 22:28 08/22/20 01:46 Tylenol - PO 650 mg Q4H PRN Administration FEVER Ascorbic Acid 500 mg 08/18/20 10:00 08/23/20 09:29 Vitamin C - PO 500 mg DAILY [facility] Administration Aspirin 81 mg 08/18/20 10:00 08/23/20 09:29 Asa - PO 81 mg DAILY [facility] Administration Cholecalciferol 1,000 unit 08/18/20 10:00 08/23/20 09:29 Vitamin D3 - PO 1,000 unit DAILY [facility] Administration Enoxaparin Sodium 40 mg 08/18/20 10:00 08/23/20 09:29 Lovenox - SQ 40 mg DAILY [facility] Administration Hydrocortisone 1 applic 08/19/20 22:00 08/23/20 09:29 Hytone 1% Cream - TP 1 applic BID [facility] Administration Cefepime HCl 2 gm/ Dextrose 100 mls @ 100 mls/hr 08/18/20 10:00 08/23/20 09:28 IVPB 100 mls/hr Q8H-IV [facility] Administration Protocol Vancomycin HCl 1,250 mg/ 250 mls @ 250 mls/2 hr 08/21/20 12:00 08/23/20 11:56 Dextrose IVPB 250 mls/2 hr Q24H [facility] Administration Protocol Magnesium Oxide 200 mg 08/18/20 12:00 08/23/20 09:29 Mag-Ox - PO 200 mg DAILY [facility] Administration Metoprolol Succinate 50 mg 08/18/20 12:00 08/23/20 09:29 Toprol Xl - PO 50 mg DAILY [facility] Administration (Osimertinib 80mg [ 1 each 08/19/20 20:01 08/22/20 17:22 Tagrisso]) PO 1 each DAILY@1700 [facility] Administration Ondansetron HCl 4 mg 08/18/20 00:01 Zofran Injection IVPUSH Q6H PRN NAUSEA Pantoprazole Sodium 20 mg 08/18/20 10:00 08/23/20 09:29 Protonix - PO 20 mg DAILY [facility] Administration ASSESSMENT/PLAN: 59 yo F w/ PMHx of HTN, HLD, GERD, Lung CA (Dr. Smallwood) presents with complaints of a fever of 102, found to be septic on admission. Currently s/p removal of pleurx catheter on 08/15/2020 which was placed in May for a pleural effusion. Resolved Sepsis 2/2 r/o Wound Infection 2/2 Pleurx Catheter Site -L sided previous Pleurex site is healing w/ minimal drainage today, clean dressing -Multi-Disciplanary: -ID: c/w Vanc, Cefepime -CT Surg: Recommend continued abx and dressing change BID. Repeat CT scan to determine need for chest drain w/ sampling -Pulm: Possible I&D if continued drainage Resolved Sepsis 2/2 Pulmonary Infection: R/O Post Obstructive Pneumonia/Empyema -Afebrile w.o white count -Per ID: c/w Cefepime & Vancomycin -FU CT Chest Hx of NSCLC w/ EGFR Mutation -Per Heme-Onc: c/w Osimertinib 80 HTN -c/w Toprol 50mg PPx -GI: Protonix 20mg q daily -DVT: Lovenox 40mg q daily FEN: -No standing fluids -Lytes -Mg/Vit D/Vit C -Regular diet Dispo: Continue to monitor on floors Visit type - Emergency Visit Emergency Visit: No - New Patient This patient is new to me today: No - Critical Care Critical Care patient: No - Discharge Referral Referred to [facility] Med P.C.: No ATTENDING PHYSICIAN STATEMENT I saw and evaluated the patient. I reviewed the resident's note and discussed the case with the resident. I agree with the resident's findings and plan as documented. SUBJECTIVE: OBJECTIVE: ASSESSMENT AND PLAN:
--- NOTE | 2020-08-23 12:45 | CONSULT ---
Consult - text type - Consultation Consultation Note: Thoracic Surgery Consultation 59F well known to be s/p left lobectomy for stage 2 lung cancer (N1 positive), with recurrence and undergoing chemo for malignant effusion. Needed pleurx. Tube removed ~10 days ago and patient began scratching because felt itchy. Had fevers over 102. Admitted. Purulent drainage. On abx. Appears af x 1 days. There is minimal erythema near drainage site but expressible and possibly purulent. Culture positive coag negative staff. Recommend continued abx and bid dressing change. Repeat CT scan. Could be intrapleural fistula to skin but skin appears to be improving. If repeat scan shows collection at base with air still would consider chest drain with sampling. I have spent 45 minutes on this consultation with >50% dedicated to counseling and coordination of care including discussions with Dr. Cisneros and Dr. Lal.
[2020-08-23] MEDS: OSIMERTINIB 80 MG PO SCH (17:48)
--- NOTE | 2020-08-23 18:27 | PN ---
Teaching Attending Note Name of Resident: Wilfredo Roa ATTENDING PHYSICIAN STATEMENT I saw and evaluated the patient. I reviewed the resident's note and discussed the case with the resident. I agree with the resident's findings and plan as documented. SUBJECTIVE: Patient is comfortable, mother is at bedside OBJECTIVE: Vital Signs Temperature 98.1 F 08/23/20 14:06 Pulse Rate 102 H 08/23/20 14:06 Respiratory Rate 20 08/23/20 14:06 Blood Pressure 104/59 L 08/23/20 14:06 O2 Sat by Pulse Oximetry (%) 96 08/23/20 10:00 PE:per resident's note CBCD WBC 7.2 K/mm3 (4.0-10.0) 08/23/20 07:10 RBC 3.12 M/mm3 (3.60-5.2) L 08/23/20 07:10 Hgb 8.3 GM/dL (10.7-15.3) L 08/23/20 07:10 Hct 25.2 % (32.4-45.2) L 08/23/20 07:10 MCV 80.5 fl (80-96) 08/23/20 07:10 MCHC 33.1 g/dl (32.0-36.0) 08/23/20 07:10 RDW 15.2 % (11.6-15.6) 08/23/20 07:10 Plt Count 372 K/MM3 (134-434) 08/23/20 07:10 MPV 10.0 fl (7.5-11.1) 08/23/20 07:10 CMP Sodium 140 mmol/L (136-145) 08/23/20 07:10 Potassium 3.6 mmol/L (3.5-5.1) 08/23/20 07:10 Chloride 104 mmol/L (98-107) 08/23/20 07:10 Carbon Dioxide 28 mmol/L (21-32) 08/23/20 07:10 Anion Gap 8 MMOL/L (8-16) 08/23/20 07:10 BUN 14.5 mg/dL (7-18) 08/23/20 07:10 Creatinine 0.5 mg/dL (0.55-1.3) L 08/23/20 07:10 Random Glucose 85 mg/dL (74-106) 08/23/20 07:10 Calcium 8.2 mg/dL (8.5-10.1) L 08/23/20 07:10 Total Bilirubin 0.2 mg/dL (0.2-1) 08/22/20 06:32 AST 58 U/L (15-37) H 08/22/20 06:32 ALT 45 U/L (13-61) 08/22/20 06:32 Alkaline Phosphatase 139 U/L (45-117) H 08/22/20 06:32 Total Protein 5.0 g/dl (6.4-8.2) L 08/22/20 06:32 Albumin 1.7 g/dl (3.4-5.0) L 08/22/20 06:32 CARDIAC ENZYMES Creatine Kinase 57 U/L (26-192) 08/17/20 18:15 Troponin I < 0.02 ng/ml (0.00-0.05) 08/17/20 18:15 Current Medications Generic Name Dose Route Start Last Admin Trade Name Enoch PRN Reason Stop Dose Admin Acetaminophen 650 mg 08/17/20 22:28 08/22/20 01:46 Tylenol - PO 650 mg Q4H PRN Administration FEVER Ascorbic Acid 500 mg 08/18/20 10:00 08/23/20 09:29 Vitamin C - PO 500 mg DAILY MELBA Administration Aspirin 81 mg 08/18/20 10:00 08/23/20 09:29 Asa - PO 81 mg DAILY MELBA Administration Cholecalciferol 1,000 unit 08/18/20 10:00 08/23/20 09:29 Vitamin D3 - PO 1,000 unit DAILY MELBA Administration Enoxaparin Sodium 40 mg 08/18/20 10:00 08/23/20 09:29 Lovenox - SQ 40 mg DAILY MELBA Administration Hydrocortisone 1 applic 08/19/20 22:00 08/23/20 09:29 Hytone 1% Cream - TP 1 applic BID MELBA Administration Cefepime HCl 2 gm/ Dextrose 100 mls @ 100 mls/hr 08/18/20 10:00 08/23/20 17:48 IVPB 100 mls/hr Q8H-IV MELBA Administration Protocol Vancomycin HCl 1,250 mg/ 250 mls @ 250 mls/2 hr 08/21/20 12:00 08/23/20 11:56 Dextrose IVPB 250 mls/2 hr Q24H MELBA Administration Protocol Magnesium Oxide 200 mg 08/18/20 12:00 08/23/20 09:29 Mag-Ox - PO 200 mg DAILY MELBA Administration Metoprolol Succinate 50 mg 08/18/20 12:00 08/23/20 09:29 Toprol Xl - PO 50 mg DAILY MELBA Administration (Osimertinib 80mg [ 1 each 08/19/20 20:01 08/23/20 17:48 Tagrisso]) PO 1 each DAILY@1700 MELBA Administration Ondansetron HCl 4 mg 08/18/20 00:01 Zofran Injection IVPUSH Q6H PRN NAUSEA Pantoprazole Sodium 20 mg 08/18/20 10:00 08/23/20 09:29 Protonix - PO 20 mg DAILY MELBA Administration Home Medications Medication Instructions Recorded Atorvastatin Ca [Lipitor] 10 mg PO HS tablet 04/09/14 Cholecalciferol (Vitamin D3) 2,000 units PO DAILY 06/14/17 [Vitamin D3 -] Aspirin 81 mg PO DAILY 02/21/18 Potassium Chloride [K-Dur -] 10 meq PO BID 06/06/20 Metoprolol Succinate 50 mg PO DAILY 06/10/20 Acetaminophen [Tylenol] 500 mg PO QID PRN 08/17/20 Ascorbate Calcium [Vitamin C] 500 mg PO BID 08/17/20 Magnesium Oxide [Mag-Oxide] 400 mg PO DAILY 08/17/20 Omeprazole 20 mg PO DAILY 08/17/20 Osimertinib Mesylate [Tagrisso] 80 mg PO DAILY 08/17/20 Microbiology 08/17/20 18:15 Back Gram Stain - Final 08/17/20 18:15 Back Wound Culture - Final Acinetobacter Lwoffii Mr S Aureus Staphylococcus Coagulase Neg 08/17/20 18:30 Blood - Peripheral Venous Blood Culture - Final NO GROWTH AFTER 5 DAYS INCUBATION 08/17/20 18:15 Blood - Peripheral Venous Blood Culture - Final NO GROWTH AFTER 5 DAYS INCUBATION 08/20/20 01:45 Chest Gram Stain - Final 08/20/20 01:45 Chest Wound Culture - Final Mr S Aureus 08/17/20 21:07 Urine - Urine Clean Catch Urine Culture - Final NO GROWTH OBTAINED ASSESSMENT AND PLAN: This patient is a 59yof with PMhx of HTN, HLP, with h/o L lung ca s/p chest tube removal due to having L malignant pleural effusion who presented with fever and was found to be septic. #s/p Sepsis: due to PNA vs empyema. chest wound cx is growing Acinetobacter Lwoffii, Mr S Aureus, Beta Hemolytic Strep cont Abx, added vanco for p resumptive MRSA , MRSA isolation , so far blood cx negative , tylenol for pain . CODI Barba is on the case , continue current meds. # h/o HTN: resume BB # H/o Lung cancer. will hold Tagrisso for now # Acute transaminitis hold statin for now , continue to follow , and trend DVT PX : Lovenox follow CT scan Thoracosx appreciated
[2020-08-24] MEDS: CEFEPIME 2 GM in DEXTROSE 5%-WATER 100 ML IVPB SCH ×3 (02:20→17:45)
--- NOTE | 2020-08-24 07:25 | PN ---
Progress Note, Physician History of Present Illness: pulmonary alert,comfortable,-sob,-cp,-cough. c/o loose stools. afebrile - Current Medication List Current Medications: Active Medications Acetaminophen (Tylenol -) 650 mg PO Q4H PRN PRN Reason: FEVER Last Admin: 08/22/20 01:46 Dose: 650 mg Documented by: Ascorbic Acid (Vitamin C -) 500 mg PO DAILY [facility] Last Admin: 08/23/20 09:29 Dose: 500 mg Documented by: Aspirin (Asa -) 81 mg PO DAILY [facility] Last Admin: 08/23/20 09:29 Dose: 81 mg Documented by: Cholecalciferol (Vitamin D3 -) 1,000 unit PO DAILY [facility] Last Admin: 08/23/20 09:29 Dose: 1,000 unit Documented by: Enoxaparin Sodium (Lovenox -) 40 mg SQ DAILY [facility] Last Admin: 08/23/20 09:29 Dose: 40 mg Documented by: Hydrocortisone (Hytone 1% Cream -) 1 applic TP BID [facility] Last Admin: 08/23/20 22:40 Dose: 1 applic Documented by: Cefepime HCl 2 gm/ Dextrose 100 mls @ 100 mls/hr IVPB Q8H-IV [facility]; Protocol Last Admin: 08/24/20 02:20 Dose: 100 mls/hr Documented by: Vancomycin HCl 1,250 mg/ (Dextrose) 250 mls @ 250 mls/2 hr IVPB Q24H [facility]; Protocol Last Admin: 08/23/20 11:56 Dose: 250 mls/2 hr Documented by: Magnesium Oxide (Mag-Ox -) 200 mg PO DAILY [facility] Last Admin: 08/23/20 09:29 Dose: 200 mg Documented by: Metoprolol Succinate (Toprol Xl -) 50 mg PO DAILY [facility] Last Admin: 08/23/20 09:29 Dose: 50 mg Documented by: (Osimertinib 80mg [ (Tagrisso])) 1 each PO DAILY@1700 [facility] Last Admin: 08/23/20 17:48 Dose: 1 each Documented by: Ondansetron HCl (Zofran Injection) 4 mg IVPUSH Q6H PRN PRN Reason: NAUSEA Pantoprazole Sodium (Protonix -) 20 mg PO DAILY [facility] Last Admin: 08/23/20 09:29 Dose: 20 mg Documented by: - Objective Vital Signs: Vital Signs Temperature 98.4 F 08/23/20 18:59 Pulse Rate 102 H 08/23/20 18:59 Respiratory Rate 20 08/23/20 18:59 Blood Pressure 109/56 L 08/23/20 18:59 O2 Sat by Pulse Oximetry (%) 98 08/23/20 21:00 Constitutional: Yes: Calm, Thin Eyes: Yes: WNL HENT: Yes: WNL Neck: Yes: WNL Cardiovascular: Yes: Regular Rate and Rhythm, S1, S2 Respiratory: Yes: Diminished Gastrointestinal: Yes: Normal Bowel Sounds, Soft Extremities: Yes: WNL Edema: No Labs: CBC, BMP 08/23/20 07:10 08/23/20 07:10 INR, PTT INR 1.25 (0.83-1.09) H 08/17/20 18:15 - ....Imaging Cat Scan: Report Reviewed, Image Reviewed Assessment/Plan A/P MRSA infection noted and previuos chest tube site Pneumonia vs subcutaneous abscess Malignant Right Pleural Effusion s/p recent chest tube removal Lung Cancer HTN Hyperlipidemia - continue antibiotics - may need I&D if continued purulent drainage - O2 to keep SpO2 >90% - DVT prophylaxis DR PZA Problem List - Problems (1) Fever Code(s): R50.9 - FEVER, UNSPECIFIED Qualifiers: Fever type: unspecified Qualified Code(s): R50.9 - Fever, unspecified (2) Lung cancer Code(s): C34.90 - MALIGNANT NEOPLASM OF UNSP PART OF UNSP BRONCHUS OR LUNG Qualifiers: Laterality: unspecified laterality Lung location: unspecified part of lung Qualified Code(s): C34.90 - Malignant neoplasm of unspecified part of unspecified bronchus or lung (3) Malignant pleural effusion Code(s): J91.0 - MALIGNANT PLEURAL EFFUSION
[2020-08-24 07:46] LABS: BASO % 0.3 % (0-2.0); EOS % 2.1 % (0-4.5); HEMATOCRIT 25.4 % (32.4-45.2); HEMOGLOBIN 8.2 GM/dL (10.7-15.3); LYMPH % 8.9 % (8-40); MCH 26.1 pg (25.7-33.7); MCHC 32.3 g/dl (32.0-36.0); MEAN CELL VOLUME 80.9 fl (80-96); MEAN PLT VOLUME 9.8 fl (7.5-11.1); MONO % 7.7 % (3.8-10.2); PLATELET COUNT 411 K/MM3 (134-434); RBC 3.14 M/mm3 (3.60-5.2); RDW 15.6 % (11.6-15.6); WHITE BLOOD COUNT 8.3 K/mm3 (4.0-10.0)
[2020-08-24 08:07] LABS: BLOOD UREA NITROGEN 15.8 mg/dL (7-18); CALCIUM 8.2 mg/dL (8.5-10.1); CREATININE 0.6 mg/dL (0.55-1.3); POTASSIUM 3.7 mmol/L (3.5-5.1)
[2020-08-24] MEDS ORDERED: PT OWN MED DRAWER 7, Y5N ONE ×3 (09:40→17:01)
[2020-08-24] MEDS: ASPIRIN 81 MG CHEWABLE TABLETS PO SCH (09:43)
[2020-08-24] MEDS: HYDROCORTISONE 1% TOPICAL CREAM 30 GM TUBE TP SCH ×2 (09:43→22:02)
[2020-08-24] MEDS: ASCORBIC ACID 500 MG TABLET (FP) PO SCH (09:43)
[2020-08-24] MEDS: ENOXAPARIN NA (PORCINE) 40 MG/0.4 ML DISP.SYRIN SQ SCH (09:43)
[2020-08-24] MEDS: CHOLECALCIFEROL (VIT D3) 1,000 UNIT (25 MCG) TABLET PO SCH (09:43)
[2020-08-24] MEDS: MAGNESIUM OXIDE 400 MG TABLET (FP) PO SCH (09:43)
[2020-08-24] MEDS: PANTOPRAZOLE 20 MG TABLET PO SCH (09:43)
[2020-08-24] MEDS: VANCOMYCIN HCL 1,250 MG in DEXTROSE 5%-WATER - 250 ML IVPB SCH (14:08)
--- NOTE | 2020-08-24 16:18 | PN ---
Progress Note (short form) - Note Progress Note: Patient is comfortable with NAd. Vital Signs Temperature 98.0 F 08/24/20 10:00 Pulse Rate 120 H 08/24/20 10:00 Respiratory Rate 20 08/24/20 10:00 Blood Pressure 113/56 L 08/24/20 10:00 O2 Sat by Pulse Oximetry (%) 97 08/24/20 10:00 GENERAL: The patient is awake, alert, and fully oriented, in no acute distress. HEAD: Normal with no signs of trauma. EYES: PERRL, extraocular movements intact, sclera anicteric, conjunctiva clear. ENT: Ears normal, oropharynx clear without exudates, moist mucous membranes. NECK: Trachea midline, full range of motion, supple. LUNGS: left chest: serasangeonous dc , covered with a dressing . CTA BL , no crackles, no accessory muscle use. HEART: Regular rate and rhythm, S1, S2 without murmur, rub or gallop. ABDOMEN: Soft, nontender, nondistended, normoactive bowel sounds, no guarding, no rebound, no hepatosplenomegaly, no masses. EXTREMITIES: 2+ pulses, warm, well-perfused, no edema. NEUROLOGICAL: Cranial nerves II through XII grossly intact. Normal speech, gait not observed. PSYCH: Normal mood, normal affect. SKIN: Warm, dry, normal turgor CBCD WBC 8.3 K/mm3 (4.0-10.0) 08/24/20 06:33 RBC 3.14 M/mm3 (3.60-5.2) L 08/24/20 06:33 Hgb 8.2 GM/dL (10.7-15.3) L 08/24/20 06:33 Hct 25.4 % (32.4-45.2) L 08/24/20 06:33 MCV 80.9 fl (80-96) 08/24/20 06:33 MCHC 32.3 g/dl (32.0-36.0) 08/24/20 06:33 RDW 15.6 % (11.6-15.6) 08/24/20 06:33 Plt Count 411 K/MM3 (134-434) 08/24/20 06:33 MPV 9.8 fl (7.5-11.1) 08/24/20 06:33 CMP Sodium 137 mmol/L (136-145) 08/24/20 06:33 Potassium 3.7 mmol/L (3.5-5.1) 08/24/20 06:33 Chloride 101 mmol/L (98-107) 08/24/20 06:33 Carbon Dioxide 29 mmol/L (21-32) 08/24/20 06:33 Anion Gap 7 MMOL/L (8-16) L 08/24/20 06:33 BUN 15.8 mg/dL (7-18) 08/24/20 06:33 Creatinine 0.6 mg/dL (0.55-1.3) 08/24/20 06:33 Random Glucose 87 mg/dL (74-106) 08/24/20 06:33 Calcium 8.2 mg/dL (8.5-10.1) L 08/24/20 06:33 Total Bilirubin 0.2 mg/dL (0.2-1) 08/22/20 06:32 AST 58 U/L (15-37) H 08/22/20 06:32 ALT 45 U/L (13-61) 08/22/20 06:32 Alkaline Phosphatase 139 U/L (45-117) H 08/22/20 06:32 Total Protein 5.0 g/dl (6.4-8.2) L 08/22/20 06:32 Albumin 1.7 g/dl (3.4-5.0) L 08/22/20 06:32 CARDIAC ENZYMES Creatine Kinase 57 U/L (26-192) 08/17/20 18:15 Troponin I < 0.02 ng/ml (0.00-0.05) 08/17/20 18:15 Current Medications Generic Name Dose Route Start Last Admin Trade Name Freq PRN Reason Stop Dose Admin Acetaminophen 650 mg 08/17/20 22:28 08/22/20 01:46 Tylenol - PO 650 mg Q4H PRN Administration FEVER Ascorbic Acid 500 mg 08/18/20 10:00 08/24/20 09:43 Vitamin C - PO 500 mg DAILY MELBA Administration Aspirin 81 mg 08/18/20 10:00 08/24/20 09:43 Asa - PO 81 mg DAILY MELBA Administration Cholecalciferol 1,000 unit 08/18/20 10:00 08/24/20 09:43 Vitamin D3 - PO 1,000 unit DAILY MELBA Administration Enoxaparin Sodium 40 mg 08/18/20 10:00 08/24/20 09:43 Lovenox - SQ 40 mg DAILY MELBA Administration Hydrocortisone 1 applic 08/19/20 22:00 08/24/20 09:43 Hytone 1% Cream - TP 1 applic BID MELBA Administration Cefepime HCl 2 gm/ Dextrose 100 mls @ 100 mls/hr 08/18/20 10:00 08/24/20 09:43 IVPB 100 mls/hr Q8H-IV MELBA Administration Protocol Vancomycin HCl 1,250 mg/ 250 mls @ 250 mls/2 hr 08/21/20 12:00 08/24/20 14:08 Dextrose IVPB 250 mls/2 hr Q24H MELBA Administration Protocol Magnesium Oxide 200 mg 08/18/20 12:00 08/24/20 09:43 Mag-Ox - PO 200 mg DAILY MELBA Administration Metoprolol Succinate 50 mg 08/18/20 12:00 08/24/20 09:43 Toprol Xl - PO 50 mg DAILY MELBA Administration (Osimertinib 80mg [ 1 each 08/19/20 20:01 08/23/20 17:48 Tagrisso]) PO 1 each DAILY@1700 MELBA Administration Ondansetron HCl 4 mg 08/18/20 00:01 Zofran Injection IVPUSH Q6H PRN NAUSEA Pantoprazole Sodium 20 mg 08/18/20 10:00 08/24/20 09:43 Protonix - PO 20 mg DAILY MELBA Administration Home Medications Medication Instructions Recorded Atorvastatin Ca [Lipitor] 10 mg PO HS tablet 04/09/14 Cholecalciferol (Vitamin D3) 2,000 units PO DAILY 06/14/17 [Vitamin D3 -] Aspirin 81 mg PO DAILY 02/21/18 Potassium Chloride [K-Dur -] 10 meq PO BID 06/06/20 Metoprolol Succinate 50 mg PO DAILY 06/10/20 Acetaminophen [Tylenol] 500 mg PO QID PRN 08/17/20 Ascorbate Calcium [Vitamin C] 500 mg PO BID 08/17/20 Magnesium Oxide [Mag-Oxide] 400 mg PO DAILY 08/17/20 Omeprazole 20 mg PO DAILY 08/17/20 Osimertinib Mesylate [Tagrisso] 80 mg PO DAILY 08/17/20 Microbiology 08/17/20 18:15 Back Gram Stain - Final 08/17/20 18:15 Back Wound Culture - Final Acinetobacter Lwoffii S Aureus Staphylococcus Coagulase Neg 08/17/20 18:30 Blood - Peripheral Venous Blood Culture - Final NO GROWTH AFTER 5 DAYS INCUBATION 08/17/20 18:15 Blood - Peripheral Venous Blood Culture - Final NO GROWTH AFTER 5 DAYS INCUBATION 08/20/20 01:45 Chest Gram Stain - Final 08/20/20 01:45 Chest Wound Culture - Final S Aureus 08/17/20 21:07 Urine - Urine Clean Catch Urine Culture - Final NO GROWTH OBTAINED CT of the chest: repeaT: NO SIGNIFICANT CHANGE in loculated air and fluid collection within the left lower chest suspecious for empyema. decrease in size of anterior and lateral left chest fluid developing small right pleural effusion with basilar atelectasis. ASSESSMENT AND PLAN: This patient is a 59yof with PMhx of HTN, HLP, with h/o L lung ca s/p chest tube removal due to having L malignant pleural effusion who presented with fever and was found to be septic. #s/p Sepsis: due to PNA vs empyema vs subcutaneous abscess, chest wound cx is growing Acinetobacter Lwoffii, Mr Santizo Aureus, Beta Hemolytic Strep cont Abx, added vanco for MRSA to cefepime , MRSA isolation , so far blood cx negative , tylenol for pain . CODI Barba is on the case , continue current meds. may need I&D if continued purulent drainage # h/o HTN: resume BB # H/o Lung cancer. will hold Tagrisso for now # Acute transaminitis hold statin for now , continue to follow , and trending down DVT PX : Lovenox follow Thoracosx recommendations Visit type - Emergency Visit Emergency Visit: Yes ED Registration Date: 08/17/20 Care time: The patient presented to the Emergency Department on the above date and was hospitalized for further evaluation of their emergent condition. - New Patient This patient is new to me today: No - Critical Care Critical Care patient: No - Discharge Referral Referred to [facility] Med [facility].: No
[2020-08-24] MEDS: OSIMERTINIB 80 MG PO SCH (17:45)
--- NOTE | 2020-08-24 19:57 | PN.HO ---
Progress Note (short form) - Note Progress Note: PAtient seen and examined Feels better Serosanguinous, discharge from Lt. pleurx catheter site Last Vital Signs Temp Pulse Resp BP Pulse Ox 98.1 F 105 H 18 106/51 L 97 08/19/20 14:09 08/19/20 14:09 08/19/20 14:09 08/19/20 14:09 08/19/20 14:09 AFVSS Cor: RSR, No murmurs, No gallops Lungs: decreased breaath sounds lt. lung base. Soft tissue edema and srosanguinous drainage at Lt. pleurx catheter site Abd: Soft, Normal bowel sounds, No organomegaly Ext:No significant edema LAbs/Meds reviewed A/P 59 y/o with metastatic NSCLC with EGFR mutation On osimertinib since end may Improved pleural effusion Admitted with fever Pleurx was taken out on 08/15/20 Soft tissue swelling and serosanguinous drainage at pleur x catheter site Also with loculated effusion continue conservative management for now Continue osimertinib [address] surgery and IR teams -- conservative management with antibiotics, repeat cest CT. further decision regarding catheter drainage based on clinical course, imaging'CT chest --loculated air/fluid collection LLL
--- NOTE | 2020-08-24 21:24 | PN ---
Progress Note, Physician History of Present Illness: Events noted. Pt is alert, afebrile. Less SOB, cough resolving. - Current Medication List Current Medications: Active Medications Acetaminophen (Tylenol -) 650 mg PO Q4H PRN PRN Reason: FEVER Last Admin: 08/22/20 01:46 Dose: 650 mg Documented by: Ascorbic Acid (Vitamin C -) 500 mg PO DAILY [facility] Last Admin: 08/24/20 09:43 Dose: 500 mg Documented by: Aspirin (Asa -) 81 mg PO DAILY [facility] Last Admin: 08/24/20 09:43 Dose: 81 mg Documented by: Cholecalciferol (Vitamin D3 -) 1,000 unit PO DAILY [facility] Last Admin: 08/24/20 09:43 Dose: 1,000 unit Documented by: Enoxaparin Sodium (Lovenox -) 40 mg SQ DAILY [facility] Last Admin: 08/24/20 09:43 Dose: 40 mg Documented by: Hydrocortisone (Hytone 1% Cream -) 1 applic TP BID [facility] Last Admin: 08/24/20 09:43 Dose: 1 applic Documented by: Cefepime HCl 2 gm/ Dextrose 100 mls @ 100 mls/hr IVPB Q8H-IV [facility]; Protocol Last Admin: 08/24/20 17:45 Dose: 100 mls/hr Documented by: Vancomycin HCl 1,250 mg/ (Dextrose) 250 mls @ 250 mls/2 hr IVPB Q24H [facility]; Protocol Last Admin: 08/24/20 14:08 Dose: 250 mls/2 hr Documented by: Magnesium Oxide (Mag-Ox -) 200 mg PO DAILY [facility] Last Admin: 08/24/20 09:43 Dose: 200 mg Documented by: Metoprolol Succinate (Toprol Xl -) 50 mg PO DAILY [facility] Last Admin: 08/24/20 09:43 Dose: 50 mg Documented by: (Osimertinib 80mg [ (Tagrisso])) 1 each PO DAILY@1700 [facility] Last Admin: 08/24/20 17:45 Dose: 1 each Documented by: Ondansetron HCl (Zofran Injection) 4 mg IVPUSH Q6H PRN PRN Reason: NAUSEA Pantoprazole Sodium (Protonix -) 20 mg PO DAILY [facility] Last Admin: 08/24/20 09:43 Dose: 20 mg Documented by: - Objective Vital Signs: Vital Signs Temperature 98.0 F 08/24/20 10:00 Pulse Rate 120 H 08/24/20 10:00 Respiratory Rate 20 08/24/20 10:00 Blood Pressure 113/56 L 08/24/20 10:00 O2 Sat by Pulse Oximetry (%) 97 08/24/20 10:00 Constitutional: Yes: No Distress, Calm Cardiovascular: Yes: Tachycardia Respiratory: Yes: Diminished (Lt) Gastrointestinal: Yes: Normal Bowel Sounds, Soft Genitourinary: Yes: WNL Integumentary: Yes: WNL Neurological: Yes: Alert, Oriented Labs: CBC, BMP 08/24/20 06:33 08/24/20 06:33 INR, PTT INR 1.25 (0.83-1.09) H 08/17/20 18:15 Laboratory Last Values WBC 8.3 K/mm3 (4.0-10.0) 08/24/20 06:33 RBC 3.14 M/mm3 (3.60-5.2) L 08/24/20 06:33 Hgb 8.2 GM/dL (10.7-15.3) L 08/24/20 06:33 Hct 25.4 % (32.4-45.2) L 08/24/20 06:33 MCV 80.9 fl (80-96) 08/24/20 06:33 MCH 26.1 pg (25.7-33.7) 08/24/20 06:33 MCHC 32.3 g/dl (32.0-36.0) 08/24/20 06:33 RDW 15.6 % (11.6-15.6) 08/24/20 06:33 Plt Count 411 K/MM3 (134-434) 08/24/20 06:33 MPV 9.8 fl (7.5-11.1) 08/24/20 06:33 Absolute Neuts (auto) 6.7 K/mm3 (1.5-8.0) 08/24/20 06:33 Neutrophils % 81.0 % (42.8-82.8) 08/24/20 06:33 Lymphocytes % 8.9 % (8-40) 08/24/20 06:33 Monocytes % 7.7 % (3.8-10.2) 08/24/20 06:33 Eosinophils % 2.1 % (0-4.5) 08/24/20 06:33 Basophils % 0.3 % (0-2.0) 08/24/20 06:33 Nucleated RBC % 0 % (0-0) 08/24/20 06:33 PT with INR 14.80 SEC (9.7-13.0) H 08/17/20 18:15 INR 1.25 (0.83-1.09) H 08/17/20 18:15 PTT (Actin FS) 30.9 SECONDS (25.2-36.5) 08/17/20 18:15 VBG pH 7.428 (7.310-7.410) H 08/17/20 18:15 POC VBG pCO2 36.4 mmHg (38-52) L 08/17/20 18:15 POC VBG pO2 40.4 mmHg (28-48) 08/17/20 18:15 VBG HCO3 23.5 mmol/L (23-29) 08/17/20 18:15 VBG O2 Sat (Tami) 77.3 % (70-80) 08/17/20 18:15 VBG Base Excess -0.5 mmol/L (-2-2) 08/17/20 18:15 Sodium 137 mmol/L (136-145) 08/24/20 06:33 Potassium 3.7 mmol/L (3.5-5.1) 08/24/20 06:33 Chloride 101 mmol/L (98-107) 08/24/20 06:33 Carbon Dioxide 29 mmol/L (21-32) 08/24/20 06:33 Anion Gap 7 MMOL/L (8-16) L 08/24/20 06:33 BUN 15.8 mg/dL (7-18) 08/24/20 06:33 Creatinine 0.6 mg/dL (0.55-1.3) 08/24/20 06:33 Est GFR (CKD-EPI)AfAm 114.82 08/24/20 06:33 Est GFR (CKD-EPI)NonAf 99.07 08/24/20 06:33 Random Glucose 87 mg/dL (74-106) 08/24/20 06:33 Lactic Acid 1.2 mmol/L (0.4-2.0) 08/17/20 18:15 Calcium 8.2 mg/dL (8.5-10.1) L 08/24/20 06:33 Phosphorus 3.6 mg/dL (2.5-4.9) 08/22/20 06:32 Magnesium 2.1 mg/dL (1.8-2.4) 08/22/20 06:32 Total Bilirubin 0.2 mg/dL (0.2-1) 08/22/20 06:32 AST 58 U/L (15-37) H 08/22/20 06:32 ALT 45 U/L (13-61) 08/22/20 06:32 Alkaline Phosphatase 139 U/L (45-117) H 08/22/20 06:32 Creatine Kinase 57 U/L (26-192) 08/17/20 18:15 Troponin I < 0.02 ng/ml (0.00-0.05) 08/17/20 18:15 Total Protein 5.0 g/dl (6.4-8.2) L 08/22/20 06:32 Albumin 1.7 g/dl (3.4-5.0) L 08/22/20 06:32 Urine Color Yellow 08/17/20 21:07 Urine Appearance Clear 08/17/20 21:07 Urine pH 5.0 (5.0-8.0) 08/17/20 21:07 Ur Specific [place] 1.015 (1.010-1.035) 08/17/20 21:07 Urine Protein Negative (NEGATIVE) 08/17/20 21:07 Urine Glucose (UA) Negative (NEGATIVE) 08/17/20 21:07 Urine Ketones Trace (NEGATIVE) H 08/17/20 21:07 Urine Blood Negative (NEGATIVE) 08/17/20 21:07 Urine Nitrite Negative (NEGATIVE) 08/17/20 21:07 Urine Bilirubin Negative (NEGATIVE) 08/17/20 21:07 Urine Urobilinogen 0.2 mg/dL (0.2-1.0) 08/17/20 21:07 Ur Leukocyte Esterase Negative (NEGATIVE) 08/17/20 21:07 Vancomycin Pre-Dose 13.0 ug/ml (5-10) H 08/24/20 12:00 COVID-19 (ANGELIQUE) Not detected (Not Detected) 08/17/20 18:15 Blood Type A POSITIVE 08/17/20 18:15 Antibody Screen Negative 08/17/20 18:15 Microbiology 08/17/20 18:15 Back Gram Stain - Final 08/17/20 18:15 Back Wound Culture - Final Acinetobacter Lwoffii S Aureus Staphylococcus Coagulase Neg 08/17/20 18:30 Blood - Peripheral Venous Blood Culture - Final NO GROWTH AFTER 5 DAYS INCUBATION 08/17/20 18:15 Blood - Peripheral Venous Blood Culture - Final NO GROWTH AFTER 5 DAYS INCUBATION 08/20/20 01:45 Chest Gram Stain - Final 08/20/20 01:45 Chest Wound Culture - Final S Aureus 08/17/20 21:07 Urine - Urine Clean Catch Urine Culture - Final NO GROWTH OBTAINED - ....Imaging Cat Scan: Report Reviewed Problem List - Problems (1) Lung cancer Code(s): C34.90 - MALIGNANT NEOPLASM OF UNSP PART OF UNSP BRONCHUS OR LUNG Qualifiers: Laterality: unspecified laterality Lung location: unspecified part of lung Qualified Code(s): C34.90 - Malignant neoplasm of unspecified part of unspecified bronchus or lung (2) Malignant pleural effusion Code(s): J91.0 - MALIGNANT PLEURAL EFFUSION Assessment/Plan NSCLC Malignant Rt pleural effusion / possible empyema/SQ abscess vs PNA HTN Hyperlipidemia Pt afebrile, without distress at this time Continue Cefepime/Vancomycin Vancomycin level noted, monitor renal function Continue monitor
[2020-08-25] MEDS ORDERED: PT OWN MED DRAWER 7, Y5N ONE ×4 (01:00→17:05)
[2020-08-25] MEDS: CEFEPIME 2 GM in DEXTROSE 5%-WATER 100 ML IVPB SCH ×3 (01:23→17:11)
[2020-08-25 08:05] LABS: BASO % 0.3 % (0-2.0); EOS % 1.9 % (0-4.5); HEMATOCRIT 25.3 % (32.4-45.2); HEMOGLOBIN 8.4 GM/dL (10.7-15.3); LYMPH % 8.6 % (8-40); MCH 26.5 pg (25.7-33.7); MCHC 33.1 g/dl (32.0-36.0); MEAN CELL VOLUME 80.1 fl (80-96); MEAN PLT VOLUME 9.5 fl (7.5-11.1); MONO % 8.5 % (3.8-10.2); NEUT % 80.7 % (42.8-82.8); PLATELET COUNT 418 K/MM3 (134-434); RBC 3.16 M/mm3 (3.60-5.2); RDW 15.5 % (11.6-15.6); WHITE BLOOD COUNT 8.7 K/mm3 (4.0-10.0)
[2020-08-25 08:34] LABS: ALBUMIN 1.9 g/dl (3.4-5.0); BILIRUBIN,TOTAL 0.4 mg/dL (0.2-1); BLOOD UREA NITROGEN 14.3 mg/dL (7-18); CALCIUM 8.5 mg/dL (8.5-10.1); CREATININE 0.6 mg/dL (0.55-1.3); MAGNESIUM 2.2 mg/dL (1.8-2.4); PHOSPHOROUS 2.8 mg/dL (2.5-4.9); POTASSIUM 3.8 mmol/L (3.5-5.1); TOT PROT 5.3 g/dl (6.4-8.2)
--- NOTE | 2020-08-25 09:55 | PN ---
Teaching Attending Note Name of Resident: Wilfredo Roa ATTENDING PHYSICIAN STATEMENT I saw and evaluated the patient. I reviewed the resident's note and discussed the case with the resident. I agree with the resident's findings and plan as documented. SUBJECTIVE: Patient is comfortable with NAD OBJECTIVE: Vital Signs Temperature 98.8 F 08/25/20 05:27 Pulse Rate 102 H 08/25/20 05:27 Respiratory Rate 18 08/25/20 05:27 Blood Pressure 101/57 L 08/25/20 05:27 O2 Sat by Pulse Oximetry (%) 97 08/25/20 05:27 PE:per resident's note less drainage on the gauze CBCD WBC 8.7 K/mm3 (4.0-10.0) 08/25/20 06:57 RBC 3.16 M/mm3 (3.60-5.2) L 08/25/20 06:57 Hgb 8.4 GM/dL (10.7-15.3) L 08/25/20 06:57 Hct 25.3 % (32.4-45.2) L 08/25/20 06:57 MCV 80.1 fl (80-96) 08/25/20 06:57 MCHC 33.1 g/dl (32.0-36.0) 08/25/20 06:57 RDW 15.5 % (11.6-15.6) 08/25/20 06:57 Plt Count 418 K/MM3 (134-434) 08/25/20 06:57 MPV 9.5 fl (7.5-11.1) 08/25/20 06:57 CMP Sodium 139 mmol/L (136-145) 08/25/20 06:57 Potassium 3.8 mmol/L (3.5-5.1) 08/25/20 06:57 Chloride 102 mmol/L (98-107) 08/25/20 06:57 Carbon Dioxide 29 mmol/L (21-32) 08/25/20 06:57 Anion Gap 7 MMOL/L (8-16) L 08/25/20 06:57 BUN 14.3 mg/dL (7-18) 08/25/20 06:57 Creatinine 0.6 mg/dL (0.55-1.3) 08/25/20 06:57 Random Glucose 85 mg/dL (74-106) 08/25/20 06:57 Calcium 8.5 mg/dL (8.5-10.1) 08/25/20 06:57 Total Bilirubin 0.4 mg/dL (0.2-1) 08/25/20 06:57 AST 43 U/L (15-37) H 08/25/20 06:57 ALT 46 U/L (13-61) 08/25/20 06:57 Alkaline Phosphatase 138 U/L (45-117) H 08/25/20 06:57 Total Protein 5.3 g/dl (6.4-8.2) L 08/25/20 06:57 Albumin 1.9 g/dl (3.4-5.0) L 08/25/20 06:57 CARDIAC ENZYMES Creatine Kinase 57 U/L (26-192) 08/17/20 18:15 Troponin I < 0.02 ng/ml (0.00-0.05) 08/17/20 18:15 Current Medications Generic Name Dose Route Start Last Admin Trade Name Enoch PRN Reason Stop Dose Admin Acetaminophen 650 mg 08/17/20 22:28 08/22/20 01:46 Tylenol - PO 650 mg Q4H PRN Administration FEVER Ascorbic Acid 500 mg 08/18/20 10:00 08/24/20 09:43 Vitamin C - PO 500 mg DAILY MELBA Administration Aspirin 81 mg 08/18/20 10:00 08/24/20 09:43 Asa - PO 81 mg DAILY MELBA Administration Cholecalciferol 1,000 unit 08/18/20 10:00 08/24/20 09:43 Vitamin D3 - PO 1,000 unit DAILY MELBA Administration Enoxaparin Sodium 40 mg 08/18/20 10:00 08/24/20 09:43 Lovenox - SQ 40 mg DAILY MELBA Administration Hydrocortisone 1 applic 08/19/20 22:00 08/24/20 22:02 Hytone 1% Cream - TP 1 applic BID MELBA Administration Cefepime HCl 2 gm/ Dextrose 100 mls @ 100 mls/hr 08/18/20 10:00 08/25/20 01:23 IVPB 100 mls/hr Q8H-IV MELBA Administration Protocol Vancomycin HCl 1,250 mg/ 250 mls @ 250 mls/2 hr 08/21/20 12:00 09/26/20 14:08 Dextrose IVPB 250 mls/2 hr Q24H MELBA Administration Protocol Magnesium Oxide 200 mg 08/18/20 12:00 08/24/20 09:43 Mag-Ox - PO 200 mg DAILY MELBA Administration Metoprolol Succinate 50 mg 08/18/20 12:00 08/24/20 09:43 Toprol Xl - PO 50 mg DAILY MELBA Administration (Osimertinib 80mg [ 1 each 08/19/20 20:01 08/24/20 17:45 Tagrisso]) PO 1 each DAILY@1700 MELBA Administration Ondansetron HCl 4 mg 08/18/20 00:01 Zofran Injection IVPUSH Q6H PRN NAUSEA Pantoprazole Sodium 20 mg 08/18/20 10:00 08/24/20 09:43 Protonix - PO 20 mg DAILY MELBA Administration Home Medications Medication Instructions Recorded Atorvastatin Ca [Lipitor] 10 mg PO HS tablet 04/09/14 Cholecalciferol (Vitamin D3) 2,000 units PO DAILY 06/14/17 [Vitamin D3 -] Aspirin 81 mg PO DAILY 02/21/18 Potassium Chloride [K-Dur -] 10 meq PO BID 06/06/20 Metoprolol Succinate 50 mg PO DAILY 06/10/20 Acetaminophen [Tylenol] 500 mg PO QID PRN 08/17/20 Ascorbate Calcium [Vitamin C] 500 mg PO BID 08/17/20 Magnesium Oxide [Mag-Oxide] 400 mg PO DAILY 08/17/20 Omeprazole 20 mg PO DAILY 08/17/20 Osimertinib Mesylate [Tagrisso] 80 mg PO DAILY 08/17/20 Microbiology 08/17/20 18:15 Back Gram Stain - Final 08/17/20 18:15 Back Wound Culture - Final Acinetobacter Lwoffii Mr S Aureus Staphylococcus Coagulase Neg 08/17/20 18:30 Blood - Peripheral Venous Blood Culture - Final NO GROWTH AFTER 5 DAYS INCUBATION 08/17/20 18:15 Blood - Peripheral Venous Blood Culture - Final NO GROWTH AFTER 5 DAYS INCUBATION 08/20/20 01:45 Chest Gram Stain - Final 08/20/20 01:45 Chest Wound Culture - Final Mr S Aureus 08/17/20 21:07 Urine - Urine Clean Catch Urine Culture - Final NO GROWTH OBTAINED CT of the chest: repeaT: NO SIGNIFICANT CHANGE in loculated air and fluid collection within the left lower chest suspecious for empyema. decrease in size of anterior and lateral left chest fluid developing small right pleural effusion with basilar atelectasis. ASSESSMENT AND PLAN: This patient is a 59yof with PMhx of HTN, HLP, with h/o L lung ca s/p chest tube removal due to having L malignant pleural effusion who presented with fever and was found to be septic. #s/p Sepsis: due to PNA vs empyema vs subcutaneous abscess, chest wound cx is growing Acinetobacter Lwoffii, Mr S Aureus, Beta Hemolytic Strep cont Abx, added vanco for MRSA to cefepime , MRSA isolation , so far blood cx negative , tylenol for pain . ID Jameson is on the case , continue current meds. may need I&D if continued purulent drainage # h/o HTN: resume BB # H/o Lung cancer. will hold Tagrisso for now # Acute transaminitis hold statin for now , continue to follow , trending down DVT PX : Lovenox will call Thoracosx and discuss with for further recommendations vanco level is 13
[2020-08-25] MEDS: ASPIRIN 81 MG CHEWABLE TABLETS PO SCH (10:33)
[2020-08-25] MEDS: ASCORBIC ACID 500 MG TABLET (FP) PO SCH (10:34)
[2020-08-25] MEDS: CHOLECALCIFEROL (VIT D3) 1,000 UNIT (25 MCG) TABLET PO SCH (10:34)
[2020-08-25] MEDS: PANTOPRAZOLE 20 MG TABLET PO SCH (10:34)
[2020-08-25] MEDS: MAGNESIUM OXIDE 400 MG TABLET (FP) PO SCH (10:34)
[2020-08-25] MEDS: ENOXAPARIN NA (PORCINE) 40 MG/0.4 ML DISP.SYRIN SQ SCH (10:35)
--- NOTE | 2020-08-25 11:06 | PN ---
Progress Note (short form) - Note Progress Note: PULMONARY No further fevers. Vital Signs Period Temp Pulse Resp BP Sys/Gonzalez Pulse Ox Last 24 Hr 98.8 F-98.8 F 98-102 18-20 101-105/57-65 95-97 Gen: NAD at rest Heart: RRR Lung: decreased breath sounds left base Abd: soft, nontender Ext: no edema CBC, BMP 08/25/20 06:57 08/25/20 06:57 Active Medications Acetaminophen (Tylenol -) 650 mg PO Q4H PRN PRN Reason: FEVER Last Admin: 08/22/20 01:46 Dose: 650 mg Documented by: Ascorbic Acid (Vitamin C -) 500 mg PO DAILY [facility] Last Admin: 08/25/20 10:34 Dose: 500 mg Documented by: Aspirin (Asa -) 81 mg PO DAILY [facility] Last Admin: 08/25/20 10:33 Dose: 81 mg Documented by: Cholecalciferol (Vitamin D3 -) 1,000 unit PO DAILY [facility] Last Admin: 08/25/20 10:34 Dose: 1,000 unit Documented by: Enoxaparin Sodium (Lovenox -) 40 mg SQ DAILY [facility] Last Admin: 08/25/20 10:35 Dose: 40 mg Documented by: Hydrocortisone (Hytone 1% Cream -) 1 applic TP BID [facility] Last Admin: 08/24/20 22:02 Dose: 1 applic Documented by: Cefepime HCl 2 gm/ Dextrose 100 mls @ 100 mls/hr IVPB Q8H-IV [facility]; Protocol Last Admin: 08/25/20 10:36 Dose: 100 mls/hr Documented by: Vancomycin HCl 1,250 mg/ (Dextrose) 250 mls @ 250 mls/2 hr IVPB Q24H [facility]; Protocol Last Admin: 08/24/20 14:08 Dose: 250 mls/2 hr Documented by: Magnesium Oxide (Mag-Ox -) 200 mg PO DAILY [facility] Last Admin: 08/25/20 10:34 Dose: 200 mg Documented by: Metoprolol Succinate (Toprol Xl -) 50 mg PO DAILY [facility] Last Admin: 08/25/20 10:34 Dose: 50 mg Documented by: (Osimertinib 80mg [ (Tagrisso])) 1 each PO DAILY@1700 [facility] Last Admin: 08/24/20 17:45 Dose: 1 each Documented by: Ondansetron HCl (Zofran Injection) 4 mg IVPUSH Q6H PRN PRN Reason: NAUSEA Pantoprazole Sodium (Protonix -) 20 mg PO DAILY MELBA Last Admin: 08/25/20 10:34 Dose: 20 mg Documented by: A/P Pneumonia vs Subcutaneous Abscess vs Empyema Malignant Right Pleural Effusion s/p recent chest tube removal Lung Cancer HTN Hyperlipidemia - continue antibiotics - thoracic f/u - O2 to keep SpO2 >90% - DVT prophylaxis
[2020-08-25] MEDS: VANCOMYCIN HCL 1,250 MG in DEXTROSE 5%-WATER - 250 ML IVPB SCH (12:20)
[2020-08-25] MEDS: HYDROCORTISONE 1% TOPICAL CREAM 30 GM TUBE TP SCH ×2 (12:20→21:04)
--- NOTE | 2020-08-25 15:10 | PN ---
Physical Exam: SUBJECTIVE: Patient seen and examined today, in no acute distress, denies CP or SoB, dressing site examined minimal drainage expressed. OBJECTIVE: Vital Signs Period Temp Pulse Resp BP Sys/Gonzalez Pulse Ox Last 24 Hr 98.8 F-98.8 F 98-118 18-20 101-105/50-65 95-97 GENERAL: The patient is awake, alert, and fully oriented, in no acute distress. HEAD: Normal with no signs of trauma. EYES: PERRL, extraocular movements intact, sclera anicteric, conjunctiva clear. No ptosis. NECK: Trachea midline, full range of motion, supple. LUNGS: Right sided breath sounds normal, improved breath sounds at the L lung base, however less overall, 2/2 surgery HEART: Regular rate and rhythm, S1, S2 without murmur, rub or gallop. CHEST: Minimal drainage, dressings clean. Decreased swelling, decreased warmth, decreased pain to palpation ABDOMEN: Soft, nontender, nondistended, normoactive bowel sounds EXTREMITIES: 2+ pulses, warm, well-perfused, no edema. NEUROLOGICAL: Normal speech, gait not observed. PSYCH: Normal mood, normal affect. SKIN: Warm, dry, normal turgor, no rashes or lesions noted except as above Laboratory Results - last 24 hr CBC, BMP 08/25/20 06:57 08/25/20 06:57 Active Medications Generic Name Dose Route Start Last Admin Trade Name Freq PRN Reason Stop Dose Admin Acetaminophen 650 mg 08/17/20 22:28 08/22/20 01:46 Tylenol - PO 650 mg Q4H PRN Administration FEVER Ascorbic Acid 500 mg 08/18/20 10:00 08/25/20 10:34 Vitamin C - PO 500 mg DAILY MELBA Administration Aspirin 81 mg 08/18/20 10:00 08/25/20 10:33 Asa - PO 81 mg DAILY MELBA Administration Cholecalciferol 1,000 unit 08/18/20 10:00 08/25/20 10:34 Vitamin D3 - PO 1,000 unit DAILY MELBA Administration Enoxaparin Sodium 40 mg 08/18/20 10:00 08/25/20 10:35 Lovenox - SQ 40 mg DAILY MELBA Administration Hydrocortisone 1 applic 08/19/20 22:00 08/25/20 12:20 Hytone 1% Cream - TP 1 applic BID MELBA Administration Cefepime HCl 2 gm/ Dextrose 100 mls @ 100 mls/hr 08/18/20 10:00 08/25/20 10:36 IVPB 100 mls/hr Q8H-IV MELBA Administration Protocol Vancomycin HCl 1,250 mg/ 250 mls @ 250 mls/2 hr 08/21/20 12:00 08/25/20 12:20 Dextrose IVPB 250 mls/2 hr Q24H MELBA Administration Protocol Magnesium Oxide 200 mg 08/18/20 12:00 08/25/20 10:34 Mag-Ox - PO 200 mg DAILY MELBA Administration Metoprolol Succinate 50 mg 08/18/20 12:00 08/25/20 10:34 Toprol Xl - PO 50 mg DAILY MELBA Administration (Osimertinib 80mg [ 1 each 08/19/20 20:01 08/24/20 17:45 Tagrisso]) PO 1 each DAILY@1700 MELBA Administration Ondansetron HCl 4 mg 08/18/20 00:01 Zofran Injection IVPUSH Q6H PRN NAUSEA Pantoprazole Sodium 20 mg 08/18/20 10:00 08/25/20 10:34 Protonix - PO 20 mg DAILY MELBA Administration ASSESSMENT/PLAN: 59 yo F w/ PMHx of HTN, HLD, GERD, Lung CA (Dr. Smallwood) presents with complaints of a fever of 102, found to be septic on admission. Currently s/p removal of pleurx catheter on 08/15/2020 which was placed in May for a pleural effusion. Resolved Sepsis 2/2 r/o Wound Infection 2/2 Pleurx Catheter Site -L sided previous Pleurex site is healing w/ minimal drainage today. Dressings BID per CT Surg -Multi-Disciplanary: -ID: c/w Vanc, Cefepime -CT Surg: Recommend continued abx and dressing change BID. Called today s/w Dr. Rubi, addressed CT. Suggested current conservative management in light of no change on CT -Pulm: Possible I&D if continued drainage -Heme-Onc: Question source of Anemia. r/o AoCD, Marrow Supression 2/2 Osimertinib; iron studies/ferritin/B12/ folate/TSH Resolved Sepsis 2/2 Pulmonary Infection: R/O Post Obstructive Pneumonia/Empyema -Afebrile w.o white count -Per ID: c/w Cefepime & Vancomycin -CT Chest: No significant change in loculated air and fluid collection within the left lower chest suspicious for empyema. 2. Decrease in size of anterior and lateral left chest fluid. 3. Developing small right pleural effusion with basilar atelectasis. Hx of NSCLC w/ EGFR Mutation -Per Heme-Onc: c/w Osimertinib 80 HTN -c/w Toprol 50mg PPx -GI: Protonix 20mg q daily -DVT: Lovenox 40mg q daily FEN: -No standing fluids -Lytes -Mg/Vit D/Vit C -Regular diet Dispo: Continue to monitor on floors Visit type - Emergency Visit Emergency Visit: No - New Patient This patient is new to me today: No - Critical Care Critical Care patient: No - Discharge Referral Referred to [facility] No ATTENDING PHYSICIAN STATEMENT I saw and evaluated the patient. I reviewed the resident's note and discussed the case with the resident. I agree with the resident's findings and plan as documented. SUBJECTIVE: OBJECTIVE: ASSESSMENT AND PLAN:
--- NOTE | 2020-08-25 15:26 | PN.HO ---
Progress Note (short form) - Note Progress Note: PAtient seen and examined Feels better Serosanguinous, discharge from Lt. pleurx catheter site---improving. Last Vital Signs Temp Pulse Resp BP Pulse Ox 98.1 F 105 H 18 106/51 L 97 08/19/20 14:09 08/19/20 14:09 08/19/20 14:09 08/19/20 14:09 08/19/20 14:09 AFVSS Cor: RSR, No murmurs, No gallops Lungs: decreased breaath sounds lt. lung base. Soft tissue edema and srosanguinous drainage at Lt. pleurx catheter site improving Abd: Soft, Normal bowel sounds, No organomegaly Ext:No significant edema LAbs/Meds reviewed A/P 59 y/o with metastatic NSCLC with EGFR mutation On osimertinib since end may Improved pleural effusion Admitted with fever Pleurx was taken out on 08/15/20 Empyema? vs catheter exit site infction Soft tissue swelling and serosanguinous drainage at pleur x catheter site Also with loculated effusion conservative management with antibiotics, imaging'CT chest --loculated air/fluid collection LLL MRSA and acinetobacter On Vancomycin/cefepime Continue to monitor clinical course . Discuss with ID about durationof antibiotics for EMpyema --MRSA/acinetobacter Dressing changes Anemia: ? anemia of chronic disease ?/ marow suppression from osimertinib ( grad e 2) Hgb 8.4 Check iron studies/ferritin/B12/ folate/TSH Transfuse for Hgb <7 Monitor discussed with patient and her father in detail
[2020-08-25] MEDS: OSIMERTINIB 80 MG PO SCH (17:12)
--- NOTE | 2020-08-25 17:24 | PN ---
Progress Note, Physician History of Present Illness: Pt is alert, without SOB, conversive. States she feels better. at bedside. - Current Medication List Current Medications: Active Medications Acetaminophen (Tylenol -) 650 mg PO Q4H PRN PRN Reason: FEVER Last Admin: 08/22/20 01:46 Dose: 650 mg Documented by: Ascorbic Acid (Vitamin C -) 500 mg PO DAILY [facility] [place] Last Admin: 08/25/20 10:34 Dose: 500 mg Documented by: Aspirin (Asa -) 81 mg PO DAILY [facility] [place] Last Admin: 08/25/20 10:33 Dose: 81 mg Documented by: Cholecalciferol (Vitamin D3 -) 1,000 unit PO DAILY [facility] [place] Last Admin: 08/25/20 10:34 Dose: 1,000 unit Documented by: Enoxaparin Sodium (Lovenox -) 40 mg SQ DAILY [facility] [place] Last Admin: 08/25/20 10:35 Dose: 40 mg Documented by: Hydrocortisone (Hytone 1% Cream -) 1 applic TP BID [facility] [place] Last Admin: 08/25/20 12:20 Dose: 1 applic Documented by: Cefepime HCl 2 gm/ Dextrose 100 mls @ 100 mls/hr IVPB Q8H-IV [facility] [place]; Protocol Last Admin: 08/25/20 17:11 Dose: 100 mls/hr Documented by: Vancomycin HCl 1,250 mg/ (Dextrose) 250 mls @ 250 mls/2 hr IVPB Q24H [facility] [place]; Protocol Last Admin: 08/25/20 12:20 Dose: 250 mls/2 hr Documented by: Magnesium Oxide (Mag-Ox -) 200 mg PO DAILY [facility] [place] Last Admin: 08/25/20 10:34 Dose: 200 mg Documented by: Metoprolol Succinate (Toprol Xl -) 50 mg PO DAILY [facility] [place] Last Admin: 08/25/20 10:34 Dose: 50 mg Documented by: (Osimertinib 80mg [ (Tagrisso])) 1 each PO DAILY@1700 [facility] [place] Last Admin: 08/25/20 17:12 Dose: 1 each Documented by: Ondansetron HCl (Zofran Injection) 4 mg IVPUSH Q6H PRN PRN Reason: NAUSEA Pantoprazole Sodium (Protonix -) 20 mg PO DAILY [facility] [place] Last Admin: 08/25/20 10:34 Dose: 20 mg Documented by: - Objective Vital Signs: Vital Signs Temperature 98.8 F 08/25/20 05:27 Pulse Rate 118 H 08/25/20 10:00 Respiratory Rate 20 08/25/20 10:00 Blood Pressure 104/50 L 08/25/20 10:00 O2 Sat by Pulse Oximetry (%) 96 08/25/20 10:00 Constitutional: Yes: No Distress, Calm Cardiovascular: Yes: Tachycardia Respiratory: Yes: Diminished (slightly Lt base) Gastrointestinal: Yes: Normal Bowel Sounds, Soft Genitourinary: Yes: WNL Extremities: Yes: WNL Integumentary: Yes: WNL Neurological: Yes: Alert, Oriented Labs: CBC, BMP 08/25/20 06:57 08/25/20 06:57 INR, PTT INR 1.25 (0.83-1.09) H 08/17/20 18:15 Microbiology 08/17/20 18:15 Back Gram Stain - Final 08/17/20 18:15 Back Wound Culture - Final Acinetobacter Lwoffii Mr S Aureus Staphylococcus Coagulase Neg 08/17/20 18:30 Blood - Peripheral Venous Blood Culture - Final NO GROWTH AFTER 5 DAYS INCUBATION 08/17/20 18:15 Blood - Peripheral Venous Blood Culture - Final NO GROWTH AFTER 5 DAYS INCUBATION 08/20/20 01:45 Chest Gram Stain - Final 08/20/20 01:45 Chest Wound Culture - Final Mr S Aureus 08/17/20 21:07 Urine - Urine Clean Catch Urine Culture - Final NO GROWTH OBTAINED - ....Imaging Cat Scan: Report Reviewed Problem List - Problems (1) Lung cancer Code(s): C34.90 - MALIGNANT NEOPLASM OF UNSP PART OF UNSP BRONCHUS OR LUNG Qualifiers: Laterality: unspecified laterality Lung location: unspecified part of lung Qualified Code(s): C34.90 - Malignant neoplasm of unspecified part of unspecified bronchus or lung (2) Malignant pleural effusion Code(s): J91.0 - MALIGNANT PLEURAL EFFUSION Assessment/Plan NSCLC Malignant Rt pleural effusion / possible empyema/SQ abscess / PNA HTN Hyperlipidemia Pt appears to be improving, afebrile, without distress Continue Cefepime/Vancomycin Continue monitor vitals Heme/Onc following
[2020-08-26] MEDS ORDERED: PT OWN MED DRAWER 7, Y5N ONE (00:50)
[2020-08-26] MEDS: CEFEPIME 2 GM in DEXTROSE 5%-WATER 100 ML IVPB SCH ×3 (01:30→18:04)
[2020-08-26] MEDS ORDERED: CEFEPIME 2 GM in DEXTROSE 5%-WATER 100 ML IVPB SCH (06:00)
[2020-08-26 09:19] LABS: BASO % 0.2 % (0-2.0); EOS % 1.2 % (0-4.5); HEMATOCRIT 26.8 % (32.4-45.2); HEMOGLOBIN 8.8 GM/dL (10.7-15.3); LYMPH % 7.5 % (8-40); MCH 26.7 pg (25.7-33.7); MCHC 33.1 g/dl (32.0-36.0); MEAN CELL VOLUME 80.8 fl (80-96); MEAN PLT VOLUME 9.8 fl (7.5-11.1); MONO % 9.6 % (3.8-10.2); NEUT % 81.5 % (42.8-82.8); PLATELET COUNT 428 K/MM3 (134-434); RBC 3.31 M/mm3 (3.60-5.2); RDW 15.6 % (11.6-15.6); WHITE BLOOD COUNT 8.6 K/mm3 (4.0-10.0)
[2020-08-26] MEDS: HYDROCORTISONE 1% TOPICAL CREAM 30 GM TUBE TP SCH ×2 (09:43→21:19)
[2020-08-26] MEDS: MAGNESIUM OXIDE 400 MG TABLET (FP) PO SCH (09:43)
[2020-08-26] MEDS: ASCORBIC ACID 500 MG TABLET (FP) PO SCH (09:43)
[2020-08-26] MEDS: ASPIRIN 81 MG CHEWABLE TABLETS PO SCH (09:43)
[2020-08-26] MEDS: PANTOPRAZOLE 20 MG TABLET PO SCH (09:43)
[2020-08-26] MEDS: CHOLECALCIFEROL (VIT D3) 1,000 UNIT (25 MCG) TABLET PO SCH (09:43)
[2020-08-26] MEDS: ENOXAPARIN NA (PORCINE) 40 MG/0.4 ML DISP.SYRIN SQ SCH (09:43)
[2020-08-26 09:44] LABS: BILIRUBIN,TOTAL 0.3 mg/dL (0.2-1); BLOOD UREA NITROGEN 17.9 mg/dL (7-18); CALCIUM 8.3 mg/dL (8.5-10.1); CREATININE 0.7 mg/dL (0.55-1.3); POTASSIUM 3.8 mmol/L (3.5-5.1); TOT PROT 5.8 g/dl (6.4-8.2)
--- NOTE | 2020-08-26 10:49 | PN ---
Physical Exam: SUBJECTIVE: Patient seen and examined this AM. OBJECTIVE: Vital Signs Period Temp Pulse Resp BP Sys/Gonzalez Pulse Ox Last 24 Hr 97.6 F-98.6 F 99-107 18-20 97-111/41-58 96-98 GENERAL: A&Ox3, NAD HEAD: NCAT EYES: PERRL, EOMI ENT: MMM NECK: Supple LUNGS: DIminished breath sounds at the bases HEART: Regular rate and rhythm, S1, S2 without murmur ABDOMEN: Soft, nontender, nondistended, + bowel sounds, no guarding EXTREMITIES: no edema NEUROLOGICAL: Cranial nerves II through XII grossly intact. SKIN: Warm, dry. Left sided Chest wound with minimal drainaged, Dressing C/D/I without surrounding erythem Laboratory Last Values WBC 8.6 K/mm3 (4.0-10.0) 08/26/20 07:40 RBC 3.31 M/mm3 (3.60-5.2) L 08/26/20 07:40 Hgb 8.8 GM/dL (10.7-15.3) L 08/26/20 07:40 Hct 26.8 % (32.4-45.2) L 08/26/20 07:40 MCV 80.8 fl (80-96) 08/26/20 07:40 MCH 26.7 pg (25.7-33.7) 08/26/20 07:40 MCHC 33.1 g/dl (32.0-36.0) 08/26/20 07:40 RDW 15.6 % (11.6-15.6) 08/26/20 07:40 Plt Count 428 K/MM3 (134-434) 08/26/20 07:40 MPV 9.8 fl (7.5-11.1) 08/26/20 07:40 Absolute Neuts (auto) 7.0 K/mm3 (1.5-8.0) 08/26/20 07:40 Neutrophils % 81.5 % (42.8-82.8) 08/26/20 07:40 Lymphocytes % 7.5 % (8-40) L 08/26/20 07:40 Monocytes % 9.6 % (3.8-10.2) 08/26/20 07:40 Eosinophils % 1.2 % (0-4.5) 08/26/20 07:40 Basophils % 0.2 % (0-2.0) 08/26/20 07:40 Nucleated RBC % 0 % (0-0) 08/26/20 07:40 PT with INR 14.80 SEC (9.7-13.0) H 08/17/20 18:15 INR 1.25 (0.83-1.09) H 08/17/20 18:15 PTT (Actin FS) 30.9 SECONDS (25.2-36.5) 08/17/20 18:15 VBG pH 7.428 (7.310-7.410) H 08/17/20 18:15 POC VBG pCO2 36.4 mmHg (38-52) L 08/17/20 18:15 POC VBG pO2 40.4 mmHg (28-48) 08/17/20 18:15 VBG HCO3 23.5 mmol/L (23-29) 08/17/20 18:15 VBG O2 Sat (Tami) 77.3 % (70-80) 08/17/20 18:15 VBG Base Excess -0.5 mmol/L (-2-2) 08/17/20 18:15 Sodium 139 mmol/L (136-145) 08/26/20 07:40 Potassium 3.8 mmol/L (3.5-5.1) 08/26/20 07:40 Chloride 101 mmol/L (98-107) 08/26/20 07:40 Carbon Dioxide 30 mmol/L (21-32) 08/26/20 07:40 Anion Gap 8 MMOL/L (8-16) 08/26/20 07:40 BUN 17.9 mg/dL (7-18) 08/26/20 07:40 Creatinine 0.7 mg/dL (0.55-1.3) 08/26/20 07:40 Est GFR (CKD-EPI)AfAm 109.15 08/26/20 07:40 Est GFR (CKD-EPI)NonAf 94.17 08/26/20 07:40 Random Glucose 90 mg/dL (74-106) 08/26/20 07:40 Lactic Acid 1.2 mmol/L (0.4-2.0) 08/17/20 18:15 Calcium 8.3 mg/dL (8.5-10.1) L 08/26/20 07:40 Phosphorus 2.8 mg/dL (2.5-4.9) 08/25/20 06:57 Magnesium 2.2 mg/dL (1.8-2.4) 08/25/20 06:57 Iron 19 ug/dL (50-175) L 08/26/20 07:40 TIBC 168 ug/dL (250-450) L 08/26/20 07:40 Iron Saturation 11 % (17.5-39) L 08/26/20 07:40 Unsaturated IBC 149 ug/dL (200-275) L 08/26/20 07:40 Ferritin 516.4 ng/ml (8-388) H 08/26/20 07:40 Total Bilirubin 0.3 mg/dL (0.2-1) 08/26/20 07:40 AST 31 U/L (15-37) 08/26/20 07:40 ALT 39 U/L (13-61) 08/26/20 07:40 Alkaline Phosphatase 136 U/L (45-117) H 08/26/20 07:40 Creatine Kinase 57 U/L (26-192) 08/17/20 18:15 Troponin I < 0.02 ng/ml (0.00-0.05) 08/17/20 18:15 Total Protein 5.8 g/dl (6.4-8.2) L 08/26/20 07:40 Albumin 2.0 g/dl (3.4-5.0) L 08/26/20 07:40 Vitamin B12 516 pg/ml (193-986) 08/26/20 07:40 TSH 1.69 uIU/ml (0.358-3.74) 08/26/20 07:40 Free T4 1.26 ng/dl (0.76-1.46) 08/26/20 07:40 Urine Color Yellow 08/17/20 21:07 Urine Appearance Clear 08/17/20 21:07 Urine pH 5.0 (5.0-8.0) 08/17/20 21:07 Ur Specific [place] 1.015 (1.010-1.035) 08/17/20 21:07 Urine Protein Negative (NEGATIVE) 08/17/20 21:07 Urine Glucose (UA) Negative (NEGATIVE) 08/17/20 21:07 Urine Ketones Trace (NEGATIVE) H 08/17/20 21:07 Urine Blood Negative (NEGATIVE) 08/17/20 21:07 Urine Nitrite Negative (NEGATIVE) 08/17/20 21:07 Urine Bilirubin Negative (NEGATIVE) 08/17/20 21:07 Urine Urobilinogen 0.2 mg/dL (0.2-1.0) 08/17/20 21:07 Ur Leukocyte Esterase Negative (NEGATIVE) 08/17/20 21:07 Vancomycin Pre-Dose 13.0 ug/ml (5-10) H 08/24/20 12:00 COVID-19 (ANGELIQUE) Not detected (Not Detected) 08/17/20 18:15 Blood Type A POSITIVE 08/17/20 18:15 Antibody Screen Negative 08/17/20 18:15 Microbiology 08/17/20 18:15 Back Gram Stain - Final 08/17/20 18:15 Back Wound Culture - Final Acinetobacter Lwoffii Mr S Aureus Staphylococcus Coagulase Neg 08/17/20 18:30 Blood - Peripheral Venous Blood Culture - Final NO GROWTH AFTER 5 DAYS INCUBATION 08/17/20 18:15 Blood - Peripheral Venous Blood Culture - Final NO GROWTH AFTER 5 DAYS INCUBATION 08/20/20 01:45 Chest Gram Stain - Final 08/20/20 01:45 Chest Wound Culture - Final Mr S Aureus 08/17/20 21:07 Urine - Urine Clean Catch Urine Culture - Final NO GROWTH OBTAINED Active Medications Acetaminophen (Tylenol -) 650 mg PO Q4H PRN PRN Reason: FEVER Last Admin: 08/22/20 01:46 Dose: 650 mg Documented by: Ascorbic Acid (Vitamin C -) 500 mg PO DAILY [facility] Last Admin: 08/26/20 09:43 Dose: 500 mg Documented by: Aspirin (Asa -) 81 mg PO DAILY [facility] Last Admin: 08/26/20 09:43 Dose: 81 mg Documented by: Cholecalciferol (Vitamin D3 -) 1,000 unit PO DAILY [facility] Last Admin: 08/26/20 09:43 Dose: 1,000 unit Documented by: Enoxaparin Sodium (Lovenox -) 40 mg SQ DAILY [facility] Last Admin: 08/26/20 09:43 Dose: 40 mg Documented by: Hydrocortisone (Hytone 1% Cream -) 1 applic TP BID [facility] Last Admin: 08/26/20 09:43 Dose: 1 applic Documented by: Vancomycin HCl 1,250 mg/ (Dextrose) 250 mls @ 250 mls/2 hr IVPB Q24H [facility]; Protocol Last Admin: 08/25/20 12:20 Dose: 250 mls/2 hr Documented by: Cefepime HCl 2 gm/ Dextrose 100 mls @ 100 mls/hr IVPB Q8H-IV [facility]; Protocol Last Admin: 08/26/20 01:30 Dose: 100 mls/hr Documented by: Magnesium Oxide (Mag-Ox -) 200 mg PO DAILY [facility] Last Admin: 08/26/20 09:43 Dose: 200 mg Documented by: Metoprolol Succinate (Toprol Xl -) 50 mg PO DAILY [facility] Last Admin: 08/26/20 09:43 Dose: 50 mg Documented by: (Osimertinib 80mg [ (Tagrisso])) 1 each PO DAILY@1700 [facility] Last Admin: 08/25/20 17:12 Dose: 1 each Documented by: Ondansetron HCl (Zofran Injection) 4 mg IVPUSH Q6H PRN PRN Reason: NAUSEA Pantoprazole Sodium (Protonix -) 20 mg PO DAILY [facility] Last Admin: 08/26/20 09:43 Dose: 20 mg Documented by: ASSESSMENT/PLAN: 59 y/o F PMHx NSCLC complicated by malignant Rt pleural effusion, HTN, HLD, GERD admitted for sepsis. #Sepsis, Resolved -In the setting of possible empyema vs Wound Infection from Pleurx Catheter Site (now s/p removal) vs SQ Abscess -Dressings in place, C/D/I with dressing changes as per Surgery -ID Evaluation appreciated; Duration of ABx to be determined by ID -Continue ABx: Vanco, Cefepime -Follow up CT Surgery rec's -May require I&D if wound continues to drain #NSCLC -Pleural effusions improving -Continue Osimertinib -DVT PPx #Anemia -Unclear Etiology; Possibly Anemia of chonic inflamation vs Bone marrow suppression from Osimertinib use -Follow Iron studies -Transfuse to keep Hgb > 7.0 Visit type - Emergency Visit Emergency Visit: Yes ED Registration Date: 08/17/20 Care time: The patient presented to the Emergency Department on the above date and was hospitalized for further evaluation of their emergent condition. - New Patient This patient is new to me today: Yes Date on this admission: 08/27/20 - Critical Care Critical Care patient: No - Discharge Referral Referred to [facility] Med P.C.: No ATTENDING PHYSICIAN STATEMENT I saw and evaluated the patient. I reviewed the resident's note and discussed the case with the resident. I agree with the resident's findings and plan as documented. SUBJECTIVE: OBJECTIVE: ASSESSMENT AND PLAN:
[2020-08-26] MEDS: VANCOMYCIN HCL 1,250 MG in DEXTROSE 5%-WATER - 250 ML IVPB SCH (12:29)
--- NOTE | 2020-08-26 12:49 | PN ---
Physical Exam: SUBJECTIVE: Patient seen and examined at bedside, no acute distress, no CP, no SoB, endorses no complaints. OBJECTIVE: Vital Signs Period Temp Pulse Resp BP Sys/Gonzalez Pulse Ox Last 24 Hr 97.6 F-98.6 F 99-108 18-20 97-111/41-70 95-98 GENERAL: The patient is awake, alert, and fully oriented, in no acute distress. HEAD: Normal with no signs of trauma. EYES: PERRL, extraocular movements intact, sclera anicteric, conjunctiva clear. No ptosis. NECK: Trachea midline, full range of motion, supple. LUNGS: Right sided breath sounds normal, improved breath sounds at the L lung base, however less overall, 2/2 surgery HEART: Regular rate and rhythm, S1, S2 without murmur, rub or gallop. CHEST: No drainage, dressings clean. Decreased swelling, decreased warmth, decreased pain to palpation ABDOMEN: Soft, nontender, nondistended, normoactive bowel sounds EXTREMITIES: 2+ pulses, warm, well-perfused, no edema. NEUROLOGICAL: Normal speech, gait not observed. PSYCH: Normal mood, normal affect. SKIN: Warm, dry, normal turgor, no rashes or lesions noted except as above Laboratory Results - last 24 hr CBC, BMP 08/26/20 07:40 08/26/20 07:40 Active Medications Generic Name Dose Route Start Last Admin Trade Name Freq PRN Reason Stop Dose Admin Acetaminophen 650 mg 08/17/20 22:28 08/22/20 01:46 Tylenol - PO 650 mg Q4H PRN Administration FEVER Ascorbic Acid 500 mg 08/18/20 10:00 08/26/20 09:43 Vitamin C - PO 500 mg DAILY [facility] Administration Aspirin 81 mg 08/18/20 10:00 08/26/20 09:43 Asa - PO 81 mg DAILY [facility] Administration Cholecalciferol 1,000 unit 08/18/20 10:00 08/26/20 09:43 Vitamin D3 - PO 1,000 unit DAILY [facility] Administration Enoxaparin Sodium 40 mg 08/18/20 10:00 08/26/20 09:43 Lovenox - SQ 40 mg DAILY [facility] Administration Hydrocortisone 1 applic 08/19/20 22:00 08/26/20 09:43 Hytone 1% Cream - TP 1 applic BID [facility] Administration Vancomycin HCl 1,250 mg/ 250 mls @ 250 mls/2 hr 08/21/20 12:00 08/26/20 12:29 Dextrose IVPB 250 mls/2 hr Q24H [facility] Administration Protocol Cefepime HCl 2 gm/ Dextrose 100 mls @ 100 mls/hr 08/26/20 02:00 08/26/20 11:21 IVPB 100 mls/hr Q8H-IV [facility] Administration Protocol Magnesium Oxide 200 mg 08/18/20 12:00 08/26/20 09:43 Mag-Ox - PO 200 mg DAILY [facility] Administration Metoprolol Succinate 50 mg 08/18/20 12:00 08/26/20 09:43 Toprol Xl - PO 50 mg DAILY [facility] Administration (Osimertinib 80mg [ 1 each 08/19/20 20:01 08/25/20 17:12 Tagrisso]) PO 1 each DAILY@1700 [facility] Administration Ondansetron HCl 4 mg 08/18/20 00:01 Zofran Injection IVPUSH Q6H PRN NAUSEA Pantoprazole Sodium 20 mg 08/18/20 10:00 08/26/20 09:43 Protonix - PO 20 mg DAILY [facility] Administration ASSESSMENT/PLAN: 59 yo F w/ PMHx of HTN, HLD, GERD, Lung CA (Dr. Smallwood) presents with complaints of a fever of 102, found to be septic on admission. Currently s/p removal of pleurx catheter on 08/15/2020 which was placed in May for a pleural effusion. Resolved Sepsis 2/2 r/o Wound Infection 2/2 Pleurx Catheter Site -L sided previous Pleurex site is healing w/ minimal drainage today. Dressings BID per CT Surg -Multi-Disciplanary: -ID: c/w current abx: Vanc, Cefepime -CT Surg: Recommend continued abx and dressing change BID. Called 08/25 s/w Dr. Rubi, addressed repeat CT. Suggested current conservative management in light of no change on CT -Pulm: Continue management, w/ Thoracic surg followup -Heme-Onc: Question source of Anemia. r/o AoCD, Marrow Supression 2/2 Osimertinib; iron studies/ferritin/B12/folate/TSH -Iron: 19 -TIBC: 168 -Iron Sat: 11 -Unsaturated IBC: 149 -Ferritin: 516 -B12: 516 -Folate: Pending Resolved Sepsis 2/2 Pulmonary Infection: R/O Post Obstructive Pneumonia/Empyema -Afebrile w.o white count -Per ID: c/w Cefepime & Vancomycin -CT Chest: No significant change in loculated air and fluid collection within the left lower chest suspicious for empyema. 2. Decrease in size of anterior and lateral left chest fluid. 3. Developing small right pleural effusion with basilar atelectasis. Hx of NSCLC w/ EGFR Mutation -Per Heme-Onc: c/w Osimertinib 80 HTN -c/w Toprol 50mg PPx -GI: Protonix 20mg q daily -DVT: Lovenox 40mg q daily FEN: -No standing fluids -Lytes -Mg/Vit D/Vit C -Regular diet Dispo: Continue to monitor on floors Visit type - Emergency Visit Emergency Visit: No - New Patient This patient is new to me today: No - Critical Care Critical Care patient: No - Discharge Referral Referred to [facility] Med P.C.: No ATTENDING PHYSICIAN STATEMENT I saw and evaluated the patient. I reviewed the resident's note and discussed the case with the resident. I agree with the resident's findings and plan as documented. SUBJECTIVE: OBJECTIVE: ASSESSMENT AND PLAN:
--- NOTE | 2020-08-26 13:00 | PN ---
Progress Note (short form) - Note Progress Note: PULMONARY No drainage from cathter site. No further fevers. Vital Signs Period Temp Pulse Resp BP Sys/Gonzalez Pulse Ox Last 24 Hr 97.6 F-98.6 F 99-108 18-20 97-111/41-70 95-98 Gen: NAD at rest Heart: RRR Lung: decreased breath sounds left base Abd: soft, nontender Ext: no edema CBC, BMP 08/26/20 07:40 08/26/20 07:40 Active Medications Acetaminophen (Tylenol -) 650 mg PO Q4H PRN PRN Reason: FEVER Last Admin: 08/22/20 01:46 Dose: 650 mg Documented by: Ascorbic Acid (Vitamin C -) 500 mg PO DAILY [facility] Last Admin: 08/26/20 09:43 Dose: 500 mg Documented by: Aspirin (Asa -) 81 mg PO DAILY [facility] Last Admin: 08/26/20 09:43 Dose: 81 mg Documented by: Cholecalciferol (Vitamin D3 -) 1,000 unit PO DAILY [facility] Last Admin: 08/26/20 09:43 Dose: 1,000 unit Documented by: Enoxaparin Sodium (Lovenox -) 40 mg SQ DAILY [facility] Last Admin: 08/26/20 09:43 Dose: 40 mg Documented by: Hydrocortisone (Hytone 1% Cream -) 1 applic TP BID [facility] Last Admin: 08/26/20 09:43 Dose: 1 applic Documented by: Vancomycin HCl 1,250 mg/ (Dextrose) 250 mls @ 250 mls/2 hr IVPB Q24H [facility]; Protocol Last Admin: 08/26/20 12:29 Dose: 250 mls/2 hr Documented by: Cefepime HCl 2 gm/ Dextrose 100 mls @ 100 mls/hr IVPB Q8H-IV [facility]; Protocol Last Admin: 08/26/20 11:21 Dose: 100 mls/hr Documented by: Magnesium Oxide (Mag-Ox -) 200 mg PO DAILY [facility] Last Admin: 08/26/20 09:43 Dose: 200 mg Documented by: Metoprolol Succinate (Toprol Xl -) 50 mg PO DAILY [facility] Last Admin: 08/26/20 09:43 Dose: 50 mg Documented by: (Osimertinib 80mg [ (Tagrisso])) 1 each PO DAILY@1700 [facility] Last Admin: 08/25/20 17:12 Dose: 1 each Documented by: Ondansetron HCl (Zofran Injection) 4 mg IVPUSH Q6H PRN PRN Reason: NAUSEA Pantoprazole Sodium (Protonix -) 20 mg PO DAILY [facility] Last Admin: 08/26/20 09:43 Dose: 20 mg Documented by: A/P Pneumonia vs Subcutaneous Abscess vs Empyema Malignant Right Pleural Effusion s/p recent chest tube removal Lung Cancer HTN Hyperlipidemia - continue antibiotics - thoracic f/u - O2 to keep SpO2 >90% - DVT prophylaxis
--- NOTE | 2020-08-26 13:26 | PN ---
Progress Note, Physician History of Present Illness: remained afebrile no new issues - Current Medication List Current Medications: Active Medications Acetaminophen (Tylenol -) 650 mg PO Q4H PRN PRN Reason: FEVER Last Admin: 08/22/20 01:46 Dose: 650 mg Documented by: Ascorbic Acid (Vitamin C -) 500 mg PO DAILY [facility] Last Admin: 08/26/20 09:43 Dose: 500 mg Documented by: Aspirin (Asa -) 81 mg PO DAILY [facility] Last Admin: 08/26/20 09:43 Dose: 81 mg Documented by: Cholecalciferol (Vitamin D3 -) 1,000 unit PO DAILY [facility] Last Admin: 08/26/20 09:43 Dose: 1,000 unit Documented by: Enoxaparin Sodium (Lovenox -) 40 mg SQ DAILY [facility] Last Admin: 08/26/20 09:43 Dose: 40 mg Documented by: Hydrocortisone (Hytone 1% Cream -) 1 applic TP BID [facility] Last Admin: 08/26/20 09:43 Dose: 1 applic Documented by: Vancomycin HCl 1,250 mg/ (Dextrose) 250 mls @ 250 mls/2 hr IVPB Q24H [facility]; Protocol Last Admin: 08/26/20 12:29 Dose: 250 mls/2 hr Documented by: Cefepime HCl 2 gm/ Dextrose 100 mls @ 100 mls/hr IVPB Q8H-IV [facility]; Protocol Last Admin: 08/26/20 11:21 Dose: 100 mls/hr Documented by: Magnesium Oxide (Mag-Ox -) 200 mg PO DAILY [facility] Last Admin: 08/26/20 09:43 Dose: 200 mg Documented by: Metoprolol Succinate (Toprol Xl -) 50 mg PO DAILY [facility] Last Admin: 08/26/20 09:43 Dose: 50 mg Documented by: (Osimertinib 80mg [ (Tagrisso])) 1 each PO DAILY@1700 [facility] Last Admin: 08/25/20 17:12 Dose: 1 each Documented by: Ondansetron HCl (Zofran Injection) 4 mg IVPUSH Q6H PRN PRN Reason: NAUSEA Pantoprazole Sodium (Protonix -) 20 mg PO DAILY [facility] Last Admin: 08/26/20 09:43 Dose: 20 mg Documented by: - Objective Vital Signs: Vital Signs Temperature 98.0 F 09/28/20 10:00 Pulse Rate 108 H 08/26/20 10:00 Respiratory Rate 20 08/26/20 10:00 Blood Pressure 108/70 08/26/20 10:00 O2 Sat by Pulse Oximetry (%) 95 08/26/20 10:00 Constitutional: Yes: No Distress, Calm Neck: Yes: Supple, Trachea Midline Cardiovascular: Yes: Regular Rate and Rhythm Respiratory: Yes: Poor Air Entry Gastrointestinal: Yes: Normal Bowel Sounds, Soft Musculoskeletal: Yes: WNL Extremities: Yes: Other Labs: CBC, BMP 08/26/20 07:40 08/26/20 07:40 INR, PTT INR 1.25 (0.83-1.09) H 08/17/20 18:15 Assessment/Plan Problem List - Problems (1) Fever Code(s): R50.9 - FEVER, UNSPECIFIED Qualifiers: Fever type: unspecified Qualified Code(s): R50.9 - Fever, unspecified (2) Lung cancer Code(s): C34.90 - MALIGNANT NEOPLASM OF UNSP PART OF UNSP BRONCHUS OR LUNG Qualifiers: Laterality: unspecified laterality Lung location: unspecified part of lung Qualified Code(s): C34.90 - Malignant neoplasm of unspecified part of unspecified bronchus or lung (3) Malignant pleural effusion Code(s): J91.0 - MALIGNANT PLEURAL EFFUSION plan continue abx patienjt needs the following [address] scan if the scan continues to show effusion then patient will need drainage
--- NOTE | 2020-08-26 14:03 | EKG ---
Test Reason : Blood Pressure : / mmHG Vent. Rate : 095 BPM Atrial Rate : 095 BPM P-R Int : 126 ms QRS Dur : 060 ms QT Int : 390 ms P-R-T Axes : 055 052 035 degrees QTc Int : 490 ms NORMAL SINUS RHYTHM PROLONGED QT ABNORMAL ECG WHEN COMPARED WITH ECG OF 19-AUG-2020 14:39, NO SIGNIFICANT CHANGE WAS FOUND Confirmed by ADALID SIMMONS MD ([id number]) on 08/26/2020 2:03:28 PM Referred By: Confirmed By:ADALID SIMMONS MD
--- NOTE | 2020-08-26 16:23 | PN ---
Teaching Attending Note Name of Resident: Rosetta Lawrence ATTENDING PHYSICIAN STATEMENT I saw and evaluated the patient. I reviewed the resident's note and discussed the case with the resident. I agree with the resident's findings and plan as documented. 59y F with EGFR Lung Adeno on osimertinib with a pleural effusion needing pleurex that was eventually removed earlier this month with possible empyema of area. At this time, conservative management with AB (MRSA and Acinetobacter) on vanco and cefepime. Continuing with dressing changes. Please continue osimertinib while in house. We will continue to follow patient while she's admitted.
[2020-08-26] MEDS: OSIMERTINIB 80 MG PO SCH (17:10)
--- NOTE | 2020-08-26 17:51 | PN ---
Teaching Attending Note Name of Resident: Wilfredo Roa ATTENDING PHYSICIAN STATEMENT I saw and evaluated the patient. I reviewed the resident's note and discussed the case with the resident. I agree with the resident's findings and plan as documented. SUBJECTIVE: Patient is feeling better with NAD. no fever or chills OBJECTIVE: Vital Signs Temperature 99.1 F 08/26/20 15:00 Pulse Rate 93 H 08/26/20 15:00 Respiratory Rate 18 08/26/20 15:00 Blood Pressure 103/56 L 08/26/20 15:00 O2 Sat by Pulse Oximetry (%) 95 08/26/20 15:00 PE: per resident's note left side of the flank area : no further drainage. CBCD WBC 8.6 K/mm3 (4.0-10.0) 08/26/20 07:40 RBC 3.31 M/mm3 (3.60-5.2) L 08/26/20 07:40 Hgb 8.8 GM/dL (10.7-15.3) L 08/26/20 07:40 Hct 26.8 % (32.4-45.2) L 08/26/20 07:40 MCV 80.8 fl (80-96) 08/26/20 07:40 MCHC 33.1 g/dl (32.0-36.0) 08/26/20 07:40 RDW 15.6 % (11.6-15.6) 08/26/20 07:40 Plt Count 428 K/MM3 (134-434) 08/26/20 07:40 MPV 9.8 fl (7.5-11.1) 08/26/20 07:40 CMP Sodium 139 mmol/L (136-145) 08/26/20 07:40 Potassium 3.8 mmol/L (3.5-5.1) 08/26/20 07:40 Chloride 101 mmol/L (98-107) 08/26/20 07:40 Carbon Dioxide 30 mmol/L (21-32) 08/26/20 07:40 Anion Gap 8 MMOL/L (8-16) 08/26/20 07:40 BUN 17.9 mg/dL (7-18) 08/26/20 07:40 Creatinine 0.7 mg/dL (0.55-1.3) 08/26/20 07:40 Random Glucose 90 mg/dL (74-106) 08/26/20 07:40 Calcium 8.3 mg/dL (8.5-10.1) L 08/26/20 07:40 Total Bilirubin 0.3 mg/dL (0.2-1) 08/26/20 07:40 AST 31 U/L (15-37) 08/26/20 07:40 ALT 39 U/L (13-61) 08/26/20 07:40 Alkaline Phosphatase 136 U/L (45-117) H 08/26/20 07:40 Total Protein 5.8 g/dl (6.4-8.2) L 08/26/20 07:40 Albumin 2.0 g/dl (3.4-5.0) L 08/26/20 07:40 CARDIAC ENZYMES Creatine Kinase 57 U/L (26-192) 08/17/20 18:15 Troponin I < 0.02 ng/ml (0.00-0.05) 08/17/20 18:15 Current Medications Generic Name Dose Route Start Last Admin Trade Name Freq PRN Reason Stop Dose Admin Acetaminophen 650 mg 08/17/20 22:28 08/22/20 01:46 Tylenol - PO 650 mg Q4H PRN Administration FEVER Ascorbic Acid 500 mg 08/18/20 10:00 08/26/20 09:43 Vitamin C - PO 500 mg DAILY MELBA Administration Aspirin 81 mg 08/18/20 10:00 08/26/20 09:43 Asa - PO 81 mg DAILY MELBA Administration Cholecalciferol 1,000 unit 08/18/20 10:00 08/26/20 09:43 Vitamin D3 - PO 1,000 unit DAILY MELBA Administration Enoxaparin Sodium 40 mg 08/18/20 10:00 08/26/20 09:43 Lovenox - SQ 40 mg DAILY MELBA Administration Hydrocortisone 1 applic 08/19/20 22:00 08/26/20 09:43 Hytone 1% Cream - TP 1 applic BID MELBA Administration Vancomycin HCl 1,250 mg/ 250 mls @ 250 mls/2 hr 08/21/20 12:00 08/26/20 12:29 Dextrose IVPB 250 mls/2 hr Q24H MELBA Administration Protocol Cefepime HCl 2 gm/ Dextrose 100 mls @ 100 mls/hr 08/26/20 02:00 08/26/20 11:21 IVPB 100 mls/hr Q8H-IV MELBA Administration Protocol Magnesium Oxide 200 mg 08/18/20 12:00 08/26/20 09:43 Mag-Ox - PO 200 mg DAILY MELBA Administration Metoprolol Succinate 50 mg 08/18/20 12:00 08/26/20 09:43 Toprol Xl - PO 50 mg DAILY MELBA Administration (Osimertinib 80mg [ 1 each 08/19/20 20:01 08/25/20 17:12 Tagrisso]) PO 1 each DAILY@1700 MELBA Administration Ondansetron HCl 4 mg 08/18/20 00:01 Zofran Injection IVPUSH Q6H PRN NAUSEA Pantoprazole Sodium 20 mg 08/18/20 10:00 08/26/20 09:43 Protonix - PO 20 mg DAILY MELBA Administration Home Medications Medication Instructions Recorded Atorvastatin Ca [Lipitor] 10 mg PO HS tablet 04/09/14 Cholecalciferol (Vitamin D3) 2,000 units PO DAILY 06/14/17 [Vitamin D3 -] Aspirin 81 mg PO DAILY 02/21/18 Potassium Chloride [K-Dur -] 10 meq PO BID 06/06/20 Metoprolol Succinate 50 mg PO DAILY 06/10/20 Acetaminophen [Tylenol] 500 mg PO QID PRN 08/17/20 Ascorbate Calcium [Vitamin C] 500 mg PO BID 08/17/20 Magnesium Oxide [Mag-Oxide] 400 mg PO DAILY 08/17/20 Omeprazole 20 mg PO DAILY 08/17/20 Osimertinib Mesylate [Tagrisso] 80 mg PO DAILY 08/17/20 Microbiology 08/17/20 18:15 Back Gram Stain - Final 08/17/20 18:15 Back Wound Culture - Final Acinetobacter Lwoffii Mr S Aureus Staphylococcus Coagulase Neg 08/17/20 18:30 Blood - Peripheral Venous Blood Culture - Final NO GROWTH AFTER 5 DAYS INCUBATION 08/17/20 18:15 Blood - Peripheral Venous Blood Culture - Final NO GROWTH AFTER 5 DAYS INCUBATION 08/20/20 01:45 Chest Gram Stain - Final 08/20/20 01:45 Chest Wound Culture - Final Mr S Aureus 08/17/20 21:07 Urine - Urine Clean Catch Urine Culture - Final NO GROWTH OBTAINED CT of the chest: repeaT: NO SIGNIFICANT CHANGE in loculated air and fluid collection within the left lower chest suspecious for empyema. decrease in size of anterior and lateral left chest fluid, developing small right pleural effusion with basilar atelectasis. ASSESSMENT AND PLAN: This patient is a 59yof with PMhx of HTN, HLP, with h/o L lung ca s/p chest tube removal due to having L malignant pleural effusion who presented with fever and was found to be septic. #s/p Sepsis: due to PNA vs empyema vs subcutaneous abscess, chest wound cx is growing Acinetobacter Lwoffii, Mr S Aureus, Beta Hemolytic Strep cont Abx, continue vanco /cefepime as per Dr Barba, MRSA to cefepime , MRSA isolation , so far blood cx negative , tylenol for pain . CODI Barba is on the case , continue current meds. may need I&D if continued purulent drainage # h/o HTN: resume BB # H/o Lung cancer. will hold Tagrisso for now # Acute transaminitis hold statin, continue to follow , trended down --.nl DVT PX : Lovenox will call Thoracosx and discuss with for further recommendations vanco level is [address] Barba the duration of Iv antibiotics
[2020-08-27] MEDS: CEFEPIME 2 GM in DEXTROSE 5%-WATER 100 ML IVPB SCH ×3 (01:54→18:14)
[2020-08-27 08:25] LABS: BILIRUBIN,TOTAL 0.3 mg/dL (0.2-1); BLOOD UREA NITROGEN 18.1 mg/dL (7-18); CREATININE 0.7 mg/dL (0.55-1.3); TOT PROT 5.6 g/dl (6.4-8.2)
[2020-08-27 08:36] LABS: BASO % 0.2 % (0-2.0); EOS % 1.1 % (0-4.5); HEMATOCRIT 26.4 % (32.4-45.2); HEMOGLOBIN 8.6 GM/dL (10.7-15.3); LYMPH % 7.1 % (8-40); MCH 26.1 pg (25.7-33.7); MCHC 32.6 g/dl (32.0-36.0); MEAN CELL VOLUME 80.3 fl (80-96); MEAN PLT VOLUME 9.5 fl (7.5-11.1); MONO % 8.6 % (3.8-10.2); PLATELET COUNT 407 K/MM3 (134-434); RBC 3.29 M/mm3 (3.60-5.2); RDW 15.6 % (11.6-15.6); WHITE BLOOD COUNT 9.2 K/mm3 (4.0-10.0)
[2020-08-27 08:38] LABS: POTASSIUM 3.8 mmol/L (3.5-5.1)
[2020-08-27] MEDS: ASPIRIN 81 MG CHEWABLE TABLETS PO SCH (10:07)
[2020-08-27] MEDS: ASCORBIC ACID 500 MG TABLET (FP) PO SCH (10:07)
[2020-08-27] MEDS: PANTOPRAZOLE 20 MG TABLET PO SCH (10:08)
[2020-08-27] MEDS: MAGNESIUM OXIDE 400 MG TABLET (FP) PO SCH (10:08)
[2020-08-27] MEDS: CHOLECALCIFEROL (VIT D3) 1,000 UNIT (25 MCG) TABLET PO SCH (10:08)
[2020-08-27] MEDS: HYDROCORTISONE 1% TOPICAL CREAM 30 GM TUBE TP SCH ×2 (10:23→21:37)
[2020-08-27] MEDS: VANCOMYCIN HCL 1,250 MG in DEXTROSE 5%-WATER - 250 ML IVPB SCH (13:09)
--- NOTE | 2020-08-27 13:13 | PN ---
Physical Exam: SUBJECTIVE: Patient seen and examined this morning, in no acute distress, does not endorse any complaints. ROS negative for F/C, LUCIA, changes in vision, CP, SoB, N/V/D. OBJECTIVE: Vital Signs Period Temp Pulse Resp BP Sys/Gonzalez Pulse Ox Last 24 Hr 97.9 F-99.1 F 93-104 18-18 90-103/54-58 95-97 GENERAL: The patient is awake, alert, and fully oriented, in no acute distress. HEAD: Normal with no signs of trauma. EYES: PERRL, extraocular movements intact, sclera anicteric, conjunctiva clear. No ptosis. NECK: Trachea midline, full range of motion, supple. LUNGS: Right sided breath sounds normal, improved breath sounds in the left lung HEART: Regular rate and rhythm, S1, S2 without murmur, rub or gallop. CHEST: No drainage, dressings clean. Decreased swelling, decreased warmth, decreased pain to palpation ABDOMEN: Soft, nontender, nondistended, normoactive bowel sounds EXTREMITIES: 2+ pulses, warm, well-perfused, no edema. NEUROLOGICAL: Normal speech, gait not observed. PSYCH: Normal mood, normal affect. SKIN: Warm, dry, normal turgor, no rashes or lesions noted except as above Laboratory Results - last 24 hr CBC, BMP 08/27/20 06:42 08/27/20 06:42 Active Medications Active Medications Generic Name Dose Route Start Last Admin Trade Name Freq PRN Reason Stop Dose Admin Acetaminophen 650 mg 08/17/20 22:28 08/22/20 01:46 Tylenol - PO 650 mg Q4H PRN Administration FEVER Ascorbic Acid 500 mg 08/18/20 10:00 08/27/20 10:07 Vitamin C - PO 500 mg DAILY MELBA Administration Aspirin 81 mg 08/18/20 10:00 08/27/20 10:07 Asa - PO 81 mg DAILY MEBLA Administration Cholecalciferol 1,000 unit 08/18/20 10:00 08/27/20 10:08 Vitamin D3 - PO 1,000 unit DAILY MELBA Administration Enoxaparin Sodium 40 mg 08/27/20 16:45 Lovenox - SQ DAILY MELBA Hydrocortisone 1 applic 08/19/20 22:00 08/27/20 10:23 Hytone 1% Cream - TP 1 applic BID MELBA Administration Vancomycin HCl 1,250 mg/ 250 mls @ 250 mls/2 hr 08/21/20 12:00 08/27/20 13:09 Dextrose IVPB 250 mls/2 hr Q24H MELBA Administration Protocol Cefepime HCl 2 gm/ Dextrose 100 mls @ 100 mls/hr 08/26/20 02:00 08/27/20 10:09 IVPB 100 mls/hr Q8H-IV MELBA Administration Protocol Magnesium Oxide 200 mg 08/18/20 12:00 08/27/20 10:08 Mag-Ox - PO 200 mg DAILY MELBA Administration Metoprolol Succinate 50 mg 08/18/20 12:00 08/27/20 10:08 Toprol Xl - PO 50 mg DAILY MELBA Administration (Osimertinib 80mg [ 1 each 08/19/20 20:01 08/26/20 17:10 Tagrisso]) PO 1 each DAILY@1700 MELBA Administration Ondansetron HCl 4 mg 08/18/20 00:01 Zofran Injection IVPUSH Q6H PRN NAUSEA Pantoprazole Sodium 20 mg 08/18/20 10:00 08/27/20 10:08 Protonix - PO 20 mg DAILY MELBA Administration ASSESSMENT/PLAN: 59 yo F w/ PMHx of HTN, HLD, GERD, Lung CA (Dr. Smallwood) presents with complaints of a fever of 102, found to be septic on admission. Currently s/p removal of pleurx catheter on 08/15/2020 which was placed in May for a pleural effusion. Resolved Sepsis 2/2 r/o Wound Infection 2/2 Pleurx Catheter Site -No drainage today, wound site healing -Multi-Disciplanary: -ID c/w: Vanc - Day 7; Cefepime - Day 10 -CT Surg: Recommend continued abx and dressing change BID. Suggested current conservative management in light of no change on CT -Pulm: Continue management, w/ Thoracic surg followup -Heme-Onc: Pending recs for anemia management CHRONIC ANEMIA LIKELY 2/2 r/o IRON DEFICIENCY VS TAGRISSO VS CHRONIC DISEASE -FU Heme Onc Studies: FOBT/Folate -Consider adding supplemental iron -Trend CBC -Transfuse <7.0 Resolved Sepsis 2/2 Pulmonary Infection: R/O Post Obstructive Pneumonia/Empyema -Afebrile w.o white count -Per ID: -Cefepime: day 10 -Vanc day 7 Hx of NSCLC w/ EGFR Mutation -Per Heme-Onc: c/w Osimertinib 80mg QD HTN -c/w Toprol 50mg PPx -GI: Protonix 20mg q daily -DVT: Lovenox 40mg, SCDs FEN: -No standing fluids -Lytes -Mg/Vit D/Vit C -Regular diet Dispo: Continue to monitor on floors Visit type - Emergency Visit Emergency Visit: No - New Patient This patient is new to me today: No - Critical Care Critical Care patient: No - Discharge Referral Referred to [facility] Med P.C[facility] No ATTENDING PHYSICIAN STATEMENT I saw and evaluated the patient. I reviewed the resident's note and discussed the case with the resident. I agree with the resident's findings and plan as documented. SUBJECTIVE: OBJECTIVE: ASSESSMENT AND PLAN:
--- NOTE | 2020-08-27 14:06 | PN ---
Progress Note, Physician History of Present Illness: stable no new issues - Current Medication List Current Medications: Active Medications Acetaminophen (Tylenol -) 650 mg PO Q4H PRN PRN Reason: FEVER Last Admin: 08/22/20 01:46 Dose: 650 mg Documented by: Ascorbic Acid (Vitamin C -) 500 mg PO DAILY [facility] Last Admin: 08/27/20 10:07 Dose: 500 mg Documented by: Aspirin (Asa -) 81 mg PO DAILY [facility] Last Admin: 08/27/20 10:07 Dose: 81 mg Documented by: Cholecalciferol (Vitamin D3 -) 1,000 unit PO DAILY [facility] Last Admin: 08/27/20 10:08 Dose: 1,000 unit Documented by: Hydrocortisone (Hytone 1% Cream -) 1 applic TP BID [facility] Last Admin: 08/27/20 10:23 Dose: 1 applic Documented by: Vancomycin HCl 1,250 mg/ (Dextrose) 250 mls @ 250 mls/2 hr IVPB Q24H [facility]; Protocol Last Admin: 08/27/20 13:09 Dose: 250 mls/2 hr Documented by: Cefepime HCl 2 gm/ Dextrose 100 mls @ 100 mls/hr IVPB Q8H-IV [facility]; Protocol Last Admin: 08/27/20 10:09 Dose: 100 mls/hr Documented by: Magnesium Oxide (Mag-Ox -) 200 mg PO DAILY [facility] Last Admin: 08/27/20 10:08 Dose: 200 mg Documented by: Metoprolol Succinate (Toprol Xl -) 50 mg PO DAILY [facility] Last Admin: 08/27/20 10:08 Dose: 50 mg Documented by: (Osimertinib 80mg [ (Tagrisso])) 1 each PO DAILY@1700 [facility] Last Admin: 08/26/20 17:10 Dose: 1 each Documented by: Ondansetron HCl (Zofran Injection) 4 mg IVPUSH Q6H PRN PRN Reason: NAUSEA Pantoprazole Sodium (Protonix -) 20 mg PO DAILY [facility] Last Admin: 08/27/20 10:08 Dose: 20 mg Documented by: - Objective Vital Signs: Vital Signs Temperature 97.9 F 08/27/20 05:47 Pulse Rate 104 H 08/27/20 05:47 Respiratory Rate 18 08/27/20 09:00 Blood Pressure 100/58 L 08/27/20 05:47 O2 Sat by Pulse Oximetry (%) 96 08/27/20 09:00 Constitutional: Yes: No Distress, Calm Cardiovascular: Yes: S1, S2 Respiratory: Yes: Regular, Poor Air Entry Gastrointestinal: Yes: Normal Bowel Sounds, Soft Musculoskeletal: Yes: WNL Extremities: Yes: WNL Neurological: Yes: Alert, Oriented Psychiatric: Yes: Alert, Oriented Labs: CBC, BMP 08/27/20 06:42 08/27/20 06:42 INR, PTT INR 1.25 (0.83-1.09) H 08/17/20 18:15 Assessment/Plan Problem List - Problems (1) Fever Code(s): R50.9 - FEVER, UNSPECIFIED Qualifiers: Fever type: unspecified Qualified Code(s): R50.9 - Fever, unspecified (2) Lung cancer Code(s): C34.90 - MALIGNANT NEOPLASM OF UNSP PART OF UNSP BRONCHUS OR LUNG Qualifiers: Laterality: unspecified laterality Lung location: unspecified part of lung Qualified Code(s): C34.90 - Malignant neoplasm of unspecified part of u nspecified bronchus or lung (3) Malignant pleural effusion Code(s): J91.0 - MALIGNANT PLEURAL EFFUSION plan continue abx plan to change to oral
--- NOTE | 2020-08-27 15:43 | PN ---
Teaching Attending Note Name of Resident: Wilfredo Roa ATTENDING PHYSICIAN STATEMENT I saw and evaluated the patient. I reviewed the resident's note and discussed the case with the resident. I agree with the resident's findings and plan as documented. SUBJECTIVE: Patient has no complaints. OBJECTIVE: Vital Signs Period Temp Pulse Resp BP Sys/Gonzalez Pulse Ox Last 24 Hr 97.9 F-99.1 F 96-105 18-18 90-104/54-58 95-97 HEART: S1S2, RRR LUNGS: Clear ABDOMEN: Soft, non-tender, non-distended, normal BS EXTREMITIES: No edema Laboratory Results - last 24 hr 08/27/20 08/27/20 06:42 06:42 WBC 9.2 RBC 3.29 L Hgb 8.6 L Hct 26.4 L MCV 80.3 MCH 26.1 MCHC 32.6 RDW 15.6 Plt Count 407 MPV 9.5 Absolute Neuts (auto) 7.6 Neutrophils % 83.0 H Lymphocytes % 7.1 L Monocytes % 8.6 Eosinophils % 1.1 Basophils % 0.2 Nucleated RBC % 0 Sodium 138 Potassium 3.8 Chloride 100 Carbon Dioxide 31 Anion Gap 6 L BUN 18.1 H Creatinine 0.7 Est GFR (CKD-EPI)AfAm 109.15 Est GFR (CKD-EPI)NonAf 94.17 Random Glucose 87 Calcium 8.0 L Total Bilirubin 0.3 AST 27 ALT 33 Alkaline Phosphatase 127 H Total Protein 5.6 L Albumin 2.0 L Current Medications Generic Name Dose Route Start Last Admin Trade Name Freq PRN Reason Stop Dose Admin Acetaminophen 650 mg 08/17/20 22:28 08/22/20 01:46 Tylenol - PO 650 mg Q4H PRN Administration FEVER Ascorbic Acid 500 mg 08/18/20 10:00 08/27/20 10:07 Vitamin C - PO 500 mg DAILY MELBA Administration Aspirin 81 mg 08/18/20 10:00 08/27/20 10:07 Asa - PO 81 mg DAILY MELBA Administration Cholecalciferol 1,000 unit 08/18/20 10:00 08/27/20 10:08 Vitamin D3 - PO 1,000 unit DAILY MELBA Administration Hydrocortisone 1 applic 08/19/20 22:00 08/27/20 10:23 Hytone 1% Cream - TP 1 applic BID MELBA Administration Vancomycin HCl 1,250 mg/ 250 mls @ 250 mls/2 hr 08/21/20 12:00 08/27/20 13:09 Dextrose IVPB 250 mls/2 hr Q24H MELBA Administration Protocol Cefepime HCl 2 gm/ Dextrose 100 mls @ 100 mls/hr 08/26/20 02:00 08/27/20 10:09 IVPB 100 mls/hr Q8H-IV MELBA Administration Protocol Magnesium Oxide 200 mg 08/18/20 12:00 08/27/20 10:08 Mag-Ox - PO 200 mg DAILY MELBA Administration Metoprolol Succinate 50 mg 08/18/20 12:00 08/27/20 10:08 Toprol Xl - PO 50 mg DAILY MLEBA Administration (Osimertinib 80mg [ 1 each 08/19/20 20:01 08/26/20 17:10 Tagrisso]) PO 1 each DAILY@1700 MELBA Administration Ondansetron HCl 4 mg 08/18/20 00:01 Zofran Injection IVPUSH Q6H PRN NAUSEA Pantoprazole Sodium 20 mg 08/18/20 10:00 08/27/20 10:08 Protonix - PO 20 mg DAILY MELBA Administration ASSESSMENT AND PLAN: This is a 59 year old woman with a history of HTN, hyperlipidemia, lung cancer with left malignant pleural effusion requiring chest tube who presented to the ED with fever. 1. Sepsis secondary to pneumonia, possible empyema, possible subcutaneous abscess - Culture of chest tube site growing MRSA, Acinetobacter, coag neg Staph - Continue cefepime, vancomycin - Chest CT (08/23) continues to show loculated air and fluid collection at left lung base - CT surgery recommends continuing current management
--- NOTE | 2020-08-27 15:56 | PN.HO ---
Progress Note (short form) - Note Progress Note: Patient seen and examined Doing well Last Vital Signs Temp Pulse Resp BP Pulse Ox 99.0 F 105 H 18 104/55 L 95 08/27/20 14:53 08/27/20 14:53 08/27/20 14:53 08/27/20 14:53 08/27/20 14:53 AFVSS Cor: RSR, No murmurs, No gallops Lungs: decreased breath sounds Abd: Soft, Normal bowel sounds, No organomegaly Ext:No significant edema Labs/Meds reviewed A/P 59 y/o lady with metastatic NSCLC with EGFR mutation On osimertinib since end may Improved pleural effusion Admitted with fever Pleurx was taken out on 08/15/20 Empyema? vs catheter exit site infection Also with loculated effusion conservative management with Vancomycin and Cefepime MRSA and acinetobacter Continue to monitor clinical course . Anemia: ? anemia of chronic disease ?/ marow suppression from osimertinib ( grade 2) Hgb 8.4 Check iron studies/ferritin/B12/ folate/TSH Transfuse for Hgb <7 Monitor
[2020-08-27] MEDS: ENOXAPARIN NA (PORCINE) 40 MG/0.4 ML DISP.SYRIN SQ SCH (17:13)
[2020-08-27] MEDS ORDERED: PT OWN MED DRAWER 7, Y5N ONE (17:53)
[2020-08-27] MEDS: OSIMERTINIB 80 MG PO SCH (18:14)
--- NOTE | 2020-08-27 21:57 | PN ---
Progress Note (short form) - Note Progress Note: Resting in NAD. No significant cough. Denies CP or SOB. No fever recorded. No pain at the previous catheter site. Dressing intact. Intake & Output 08/24/20 08/25/20 08/26/20 08/27/20 23:59 23:59 23:59 23:59 Intake Total 460 560 550 770 Balance 460 560 550 770 Last Vital Signs Temp Pulse Resp BP Pulse Ox 99.0 F 98 H 18 96/52 L 96 08/27/20 18:52 08/27/20 18:52 08/27/20 19:52 08/27/20 18:52 08/27/20 19:52 Active Medications Acetaminophen (Tylenol -) 650 mg PO Q4H PRN PRN Reason: FEVER Last Admin: 08/22/20 01:46 Dose: 650 mg Documented by: Ascorbic Acid (Vitamin C -) 500 mg PO DAILY [facility] Last Admin: 08/27/20 10:07 Dose: 500 mg Documented by: Aspirin (Asa -) 81 mg PO DAILY [facility] Last Admin: 08/27/20 10:07 Dose: 81 mg Documented by: Cholecalciferol (Vitamin D3 -) 1,000 unit PO DAILY [facility] Last Admin: 08/27/20 10:08 Dose: 1,000 unit Documented by: Enoxaparin Sodium (Lovenox -) 40 mg SQ DAILY [facility] Last Admin: 08/27/20 17:13 Dose: 40 mg Documented by: Hydrocortisone (Hytone 1% Cream -) 1 applic TP BID [facility] Last Admin: 08/27/20 21:37 Dose: 1 applic Documented by: Vancomycin HCl 1,250 mg/ (Dextrose) 250 mls @ 250 mls/2 hr IVPB Q24H [facility]; Protocol Last Admin: 08/27/20 13:09 Dose: 250 mls/2 hr Documented by: Cefepime HCl 2 gm/ Dextrose 100 mls @ 100 mls/hr IVPB Q8H-IV [facility]; Protocol Last Admin: 08/27/20 18:14 Dose: 100 mls/hr Documented by: Magnesium Oxide (Mag-Ox -) 200 mg PO DAILY [facility] Last Admin: 08/27/20 10:08 Dose: 200 mg Documented by: Metoprolol Succinate (Toprol Xl -) 50 mg PO DAILY [facility] Last Admin: 08/27/20 10:08 Dose: 50 mg Documented by: (Osimertinib 80mg [ (Tagrisso])) 1 each PO DAILY@1700 [facility] Last Admin: 08/27/20 18:14 Dose: 1 each Documented by: Ondansetron HCl (Zofran Injection) 4 mg IVPUSH Q6H PRN PRN Reason: NAUSEA Pantoprazole Sodium (Protonix -) 20 mg PO DAILY [facility] Last Admin: 08/27/20 10:08 Dose: 20 mg Documented by: Gen: NAD at rest Heart: RRR Lung: decreased breath sounds left base, dressing intact Abd: soft, nontender Ext: no edema Intake & Output 08/24/20 08/25/20 08/26/20 08/27/20 23:59 23:59 23:59 23:59 Intake Total 460 560 550 770 Balance 460 560 550 770 A/P Pneumonia vs Subcutaneous Abscess vs Empyema: the patient is currently afebrile and reports being relatively asymptomatic Malignant Right Pleural Effusion s/p recent chest tube removal Lung Cancer HTN Hyperlipidemia - ABX per ID - Supplemental O2 as needed - VTE prophylaxis - Repeat CXR in AM Dr Damon
[2020-08-28] MEDS: CEFEPIME 2 GM in DEXTROSE 5%-WATER 100 ML IVPB SCH ×3 (01:23→18:02)
--- NOTE | 2020-08-28 07:29 | PN ---
Progress Note, Physician History of Present Illness: pulmonary alert,comfortable,-sob,-cp - Current Medication List Current Medications: Active Medications Acetaminophen (Tylenol -) 650 mg PO Q4H PRN PRN Reason: FEVER Last Admin: 08/22/20 01:46 Dose: 650 mg Documented by: Ascorbic Acid (Vitamin C -) 500 mg PO DAILY [facility] Last Admin: 08/27/20 10:07 Dose: 500 mg Documented by: Aspirin (Asa -) 81 mg PO DAILY [facility] Last Admin: 08/27/20 10:07 Dose: 81 mg Documented by: Cholecalciferol (Vitamin D3 -) 1,000 unit PO DAILY [facility] Last Admin: 08/27/20 10:08 Dose: 1,000 unit Documented by: Enoxaparin Sodium (Lovenox -) 40 mg SQ DAILY [facility] Last Admin: 08/27/20 17:13 Dose: 40 mg Documented by: Hydrocortisone (Hytone 1% Cream -) 1 applic TP BID [facility] Last Admin: 08/27/20 21:37 Dose: 1 applic Documented by: Vancomycin HCl 1,250 mg/ (Dextrose) 250 mls @ 250 mls/2 hr IVPB Q24H [facility]; Pro tocol Last Admin: 08/27/20 13:09 Dose: 250 mls/2 hr Documented by: Cefepime HCl 2 gm/ Dextrose 100 mls @ 100 mls/hr IVPB Q8H-IV [facility]; Protocol Last Admin: 08/28/20 01:23 Dose: 100 mls/hr Documented by: Magnesium Oxide (Mag-Ox -) 200 mg PO DAILY [facility] Last Admin: 08/27/20 10:08 Dose: 200 mg Documented by: Metoprolol Succinate (Toprol Xl -) 50 mg PO DAILY [facility] Last Admin: 08/27/20 10:08 Dose: 50 mg Documented by: (Osimertinib 80mg [ (Tagrisso])) 1 each PO DAILY@1700 [facility] Last Admin: 08/27/20 18:14 Dose: 1 each Documented by: Ondansetron HCl (Zofran Injection) 4 mg IVPUSH Q6H PRN PRN Reason: NAUSEA Pantoprazole Sodium (Protonix -) 20 mg PO DAILY [facility] Last Admin: 08/27/20 10:08 Dose: 20 mg Documented by: - Objective Vital Signs: Vital Signs Temperature 98.7 F 08/28/20 06:00 Pulse Rate 97 H 08/28/20 06:00 Respiratory Rate 18 08/28/20 06:00 Blood Pressure 108/57 L 08/28/20 06:00 O2 Sat by Pulse Oximetry (%) 97 08/28/20 06:00 Constitutional: Yes: Calm, Thin Eyes: Yes: WNL HENT: Yes: WNL Neck: Yes: WNL Cardiovascular: Yes: Regular Rate and Rhythm, S1, S2 Respiratory: Yes: Diminished, Other (DRESSING INTACT) Gastrointestinal: Yes: Normal Bowel Sounds, Soft Extremities: Yes: WNL Edema: No Labs: CBC, BMP Assessment/Plan A/P Pneumonia vs Subcutaneous Abscess vs Empyema: the patient is currently afebrile and reports being relatively asymptomatic Malignant Right Pleural Effusion s/p recent chest tube removal Lung Cancer HTN Hyperlipidemia - ABX per ID - Supplemental O2 as needed - VTE prophylaxis - Repeat CXR in AM DR PAZ
[2020-08-28 08:29] LABS: BASO % 0.3 % (0-2.0); EOS % 0.9 % (0-4.5); HEMATOCRIT 26.5 % (32.4-45.2); HEMOGLOBIN 8.7 GM/dL (10.7-15.3); LYMPH % 7.7 % (8-40); MCH 26.4 pg (25.7-33.7); MCHC 32.8 g/dl (32.0-36.0); MEAN CELL VOLUME 80.4 fl (80-96); MEAN PLT VOLUME 9.6 fl (7.5-11.1); NEUT % 81.1 % (42.8-82.8); PLATELET COUNT 375 K/MM3 (134-434); RDW 15.6 % (11.6-15.6); WHITE BLOOD COUNT 8.6 K/mm3 (4.0-10.0)
[2020-08-28 08:59] LABS: CALCIUM 8.6 mg/dL (8.5-10.1); CREATININE 0.8 mg/dL (0.55-1.3); POTASSIUM 3.9 mmol/L (3.5-5.1)
--- NOTE | 2020-08-28 09:18 | PN ---
Progress Note, Physician History of Present Illness: no drain from the site noted remains afebrile - Current Medication List Current Medications: Active Medications Acetaminophen (Tylenol -) 650 mg PO Q4H PRN PRN Reason: FEVER Last Admin: 08/22/20 01:46 Dose: 650 mg Documented by: Ascorbic Acid (Vitamin C -) 500 mg PO DAILY [facility] Last Admin: 08/27/20 10:07 Dose: 500 mg Documented by: Aspirin (Asa -) 81 mg PO DAILY [facility] Last Admin: 08/27/20 10:07 Dose: 81 mg Documented by: Cholecalciferol (Vitamin D3 -) 1,000 unit PO DAILY [facility] Last Admin: 08/27/20 10:08 Dose: 1,000 unit Documented by: Enoxaparin Sodium (Lovenox -) 40 mg SQ DAILY [facility] Last Admin: 08/27/20 17:13 Dose: 40 mg Documented by: Hydrocortisone (Hytone 1% Cream -) 1 applic TP BID [facility] Last Admin: 08/27/20 21:37 Dose: 1 applic Documented by: Vancomycin HCl 1,250 mg/ (Dextrose) 250 mls @ 250 mls/2 hr IVPB Q24H [facility]; Protocol Last Admin: 08/27/20 13:09 Dose: 250 mls/2 hr Documented by: Cefepime HCl 2 gm/ Dextrose 100 mls @ 100 mls/hr IVPB Q8H-IV [facility]; Protocol Last Admin: 08/28/20 01:23 Dose: 100 mls/hr Documented by: Magnesium Oxide (Mag-Ox -) 200 mg PO DAILY [facility] Last Admin: 08/27/20 10:08 Dose: 200 mg Documented by: Metoprolol Succinate (Toprol Xl -) 50 mg PO DAILY [facility] Last Admin: 08/27/20 10:08 Dose: 50 mg Documented by: (Osimertinib 80mg [ (Tagrisso])) 1 each PO DAILY@1700 [facility] Last Admin: 08/27/20 18:14 Dose: 1 each Documented by: Ondansetron HCl (Zofran Injection) 4 mg IVPUSH Q6H PRN PRN Reason: NAUSEA Pantoprazole Sodium (Protonix -) 20 mg PO DAILY [facility] Last Admin: 08/27/20 10:08 Dose: 20 mg Documented by: - Objective Vital Signs: Vital Signs Temperature 98.7 F 08/28/20 06:00 Pulse Rate 97 H 08/28/20 06:00 Respiratory Rate 18 08/28/20 06:00 Blood Pressure 108/57 L 08/28/20 06:00 O2 Sat by Pulse Oximetry (%) 97 08/28/20 06:00 Constitutional: Yes: No Distress, Calm Cardiovascular: Yes: S1, S2 Respiratory: Yes: Regular, Poor Air Entry Gastrointestinal: Yes: Normal Bowel Sounds, Soft Musculoskeletal: Yes: WNL Extremities: Yes: WNL Neurological: Yes: Alert, Oriented Psychiatric: Yes: Alert, Oriented Labs: CBC, BMP 08/28/20 07:00 08/28/20 07:00 INR, PTT INR 1.25 (0.83-1.09) H 08/17/20 18:15 Assessment/Plan Problem List - Problems (1) Fever Code(s): R50.9 - FEVER, UNSPECIFIED Qualifiers: Fever type: unspecified Qualified Code(s): R50.9 - Fever, unspecified (2) Lung cancer Code(s): C34.90 - MALIGNANT NEOPLASM OF UNSP PART OF UNSP BRONCHUS OR LUNG Qualifiers: Laterality: unspecified laterality Lung location: unspecified part of lung Qualified Code(s): C34.90 - Malignant neoplasm of unspecified part of unspecified bronchus or lung (3) Malignant pleural effusion Code(s): J91.0 - MALIGNANT PLEURAL EFFUSION plan continue abx plan to change to oral rest as per the team will d/w the team
[2020-08-28] MEDS ORDERED: PT OWN MED DRAWER 7, Y5N ONE ×3 (09:30→16:49)
[2020-08-28] MEDS: ASCORBIC ACID 500 MG TABLET (FP) PO SCH (10:12)
[2020-08-28] MEDS: PANTOPRAZOLE 20 MG TABLET PO SCH (10:12)
[2020-08-28] MEDS: MAGNESIUM OXIDE 400 MG TABLET (FP) PO SCH (10:12)
[2020-08-28] MEDS: ENOXAPARIN NA (PORCINE) 40 MG/0.4 ML DISP.SYRIN SQ SCH (10:12)
[2020-08-28] MEDS: ASPIRIN 81 MG CHEWABLE TABLETS PO SCH (10:13)
[2020-08-28] MEDS: HYDROCORTISONE 1% TOPICAL CREAM 30 GM TUBE TP SCH ×2 (10:13→21:23)
[2020-08-28] MEDS: CHOLECALCIFEROL (VIT D3) 1,000 UNIT (25 MCG) TABLET PO SCH (10:13)
[2020-08-28] MEDS: VANCOMYCIN HCL 1,250 MG in DEXTROSE 5%-WATER - 250 ML IVPB SCH (12:55)
--- NOTE | 2020-08-28 13:14 | PN ---
Teaching Attending Note Name of Resident: Wilfredo Roa ATTENDING PHYSICIAN STATEMENT I saw and evaluated the patient. I reviewed the resident's note and discussed the case with the resident. I agree with the resident's findings and plan as documented. SUBJECTIVE: Patient has no complaints. OBJECTIVE: Vital Signs Period Temp Pulse Resp BP Sys/Gonzalez Pulse Ox Last 24 Hr 98.1 F-99.0 F 97-109 18-19 96-108/52-80 95-97 HEART: S1S2, RRR LUNGS: Clear with decreased BS at left base ABDOMEN: Soft, non-tender, non-distended, normal BS EXTREMITIES: No edema Laboratory Results - last 24 hr 08/26/20 08/28/20 08/28/20 07:40 07:00 07:00 WBC 8.6 RBC 3.30 L Hgb 8.7 L Hct 27.4 L 26.5 L MCV 80.4 MCH 26.4 MCHC 32.8 RDW 15.6 Plt Count 375 MPV 9.6 Absolute Neuts (auto) 7.0 Neutrophils % 81.1 Lymphocytes % 7.7 L Monocytes % 10.0 Eosinophils % 0.9 Basophils % 0.3 Nucleated RBC % 0 Sodium 135 L Potassium 3.9 Chloride 98 Carbon Dioxide 31 Anion Gap 6 L BUN 17.0 Creatinine 0.8 Est GFR (CKD-EPI)AfAm 92.87 Est GFR (CKD-EPI)NonAf 80.13 Random Glucose 84 Calcium 8.6 Folate 1248 Folate Hemolysate 342.0 Current Medications Generic Name Dose Route Start Last Admin Trade Name Freq PRN Reason Stop Dose Admin Acetaminophen 650 mg 08/17/20 22:28 08/22/20 01:46 Tylenol - PO 650 mg Q4H PRN Administration FEVER Ascorbic Acid 500 mg 08/18/20 10:00 08/28/20 10:12 Vitamin C - PO 500 mg DAILY [facility] Administration Aspirin 81 mg 08/18/20 10:00 08/28/20 10:13 Asa - PO 81 mg DAILY [facility] Administration Cholecalciferol 1,000 unit 08/18/20 10:00 08/28/20 10:13 Vitamin D3 - PO 1,000 unit DAILY [facility] Administration Enoxaparin Sodium 40 mg 08/27/20 16:45 08/28/20 10:12 Lovenox - SQ 40 mg DAILY [facility] Administration Hydrocortisone 1 applic 08/19/20 22:00 08/28/20 10:13 Hytone 1% Cream - TP 1 applic BID [facility] Administration Vancomycin HCl 1,250 mg/ 250 mls @ 250 mls/2 hr 08/21/20 12:00 08/27/20 13:09 Dextrose IVPB 250 mls/2 hr Q24H [facility] Administration Protocol Cefepime HCl 2 gm/ Dextrose 100 mls @ 100 mls/hr 08/26/20 02:00 08/28/20 10:11 IVPB 100 mls/hr Q8H-IV [facility] Administration Protocol Magnesium Oxide 200 mg 08/18/20 12:00 08/28/20 10:12 Mag-Ox - PO 200 mg DAILY [facility] Administration Metoprolol Succinate 50 mg 08/18/20 12:00 08/28/20 10:12 Toprol Xl - PO 50 mg DAILY [facility] Administration (Osimertinib 80mg [ 1 each 08/19/20 20:01 08/27/20 18:14 Tagrisso]) PO 1 each DAILY@1700 [facility] Administration Ondansetron HCl 4 mg 08/18/20 00:01 Zofran Injection IVPUSH Q6H PRN NAUSEA Pantoprazole Sodium 20 mg 08/18/20 10:00 08/28/20 10:12 Protonix - PO 20 mg DAILY [facility] Administration ASSESSMENT AND PLAN: This is a 59 year old woman with a history of HTN, hyperlipidemia, lung cancer with left malignant pleural effusion requiring chest tube who presented to the ED with fever. 1. Sepsis secondary to pneumonia, possible empyema, possible subcutaneous abscess - Culture of chest tube site growing MRSA, Acinetobacter, coag neg Staph - Continue cefepime, vancomycin - Chest CT (08/23) continues to show loculated air and fluid collection at left lung base - CT surgery recommends continuing current management 2. Anemia secondary to chronic illness - Hgb stable 3. Adenocarcinoma of lung
--- NOTE | 2020-08-28 13:26 | PN ---
Physical Exam: SUBJECTIVE: Patient seen and examined today, endorsing mild constipation, otherwise no complaints. Denied F/C, CP, SoB, N/V/D OBJECTIVE: Vital Signs Period Temp Pulse Resp BP Sys/Gonzalez Pulse Ox Last 24 Hr 98.1 F-99.0 F 97-109 18-19 96-108/52-80 95-97 GENERAL: The patient is awake, alert, and fully oriented, in no acute distress. HEAD: Normal with no signs of trauma. EYES: PERRL, extraocular movements intact, sclera anicteric, conjunctiva clear. No ptosis. NECK: Trachea midline, full range of motion, supple. LUNGS: Right sided breath sounds normal, improved breath sounds in the left lung HEART: Regular rate and rhythm, S1, S2 without murmur, rub or gallop. CHEST: No drainage, wound appears healed, dressings clean. ABDOMEN: Soft, nontender, nondistended, normoactive bowel sounds EXTREMITIES: 2+ pulses, warm, well-perfused, no edema. NEUROLOGICAL: Normal speech, gait not observed. PSYCH: Normal mood, normal affect. SKIN: Warm, dry, normal turgor, no rashes or lesions noted Laboratory Results - last 24 hr CBC, BMP 08/28/20 07:00 08/28/20 07:00 Active Medications Generic Name Dose Route Start Last Admin Trade Name Enoch PRN Reason Stop Dose Admin Acetaminophen 650 mg 08/17/20 22:28 08/22/20 01:46 Tylenol - PO 650 mg Q4H PRN Administration FEVER Ascorbic Acid 500 mg 08/18/20 10:00 08/28/20 10:12 Vitamin C - PO 500 mg DAILY [facility] Administration Aspirin 81 mg 08/18/20 10:00 08/28/20 10:13 Asa - PO 81 mg DAILY [facility] Administration Cholecalciferol 1,000 unit 08/18/20 10:00 08/28/20 10:13 Vitamin D3 - PO 1,000 unit DAILY [facility] Administration Enoxaparin Sodium 40 mg 08/27/20 16:45 08/28/20 10:12 Lovenox - SQ 40 mg DAILY [facility] Administration Hydrocortisone 1 applic 08/19/20 22:00 08/28/20 10:13 Hytone 1% Cream - TP 1 applic BID [facility] Administration Vancomycin HCl 1,250 mg/ 250 mls @ 250 mls/2 hr 08/21/20 12:00 08/28/20 12:55 Dextrose IVPB 250 mls/2 hr Q24H [facility] Administration Protocol Cefepime HCl 2 gm/ Dextrose 100 mls @ 100 mls/hr 08/26/20 02:00 08/28/20 10:11 IVPB 100 mls/hr Q8H-IV [facility] Administration Protocol Magnesium Oxide 200 mg 08/18/20 12:00 08/28/20 10:12 Mag-Ox - PO 200 mg DAILY [facility] Administration Metoprolol Succinate 50 mg 08/18/20 12:00 08/28/20 10:12 Toprol Xl - PO 50 mg DAILY [facility] Administration (Osimertinib 80mg [ 1 each 08/19/20 20:01 08/27/20 18:14 Tagrisso]) PO 1 each DAILY@1700 [facility] Administration Ondansetron HCl 4 mg 08/18/20 00:01 Zofran Injection IVPUSH Q6H PRN NAUSEA Pantoprazole Sodium 20 mg 08/18/20 10:00 08/28/20 10:12 Protonix - PO 20 mg DAILY [facility] Administration ASSESSMENT/PLAN: 59 yo F w/ PMHx of HTN, HLD, GERD, Lung CA (Dr. Smallwood) presents with c omplaints of a fever of 102, found to be septic on admission. Currently s/p removal of pleurx catheter on 08/15/2020 which was placed in May for a pleural effusion. Resolved Sepsis 2/2 r/o Wound Infection 2/2 Pleurx Catheter Site -No drainage, wound site closed -Multi-Disciplanary: -ID c/w: Vanc - Day 8; Cefepime - Day 11 - continue for 2-3 more days and switch to oral abx for DC -CT Surg: Recommend continued abx and dressing change BID. CHRONIC ANEMIA LIKELY 2/2 r/o IRON DEFICIENCY VS TAGRISSO VS CHRONIC DISEASE -Heme-Onc: FU soluble transferring receptor levels -Trend CBC -Transfuse <7.0 Resolved Sepsis 2/2 Pulmonary Infection: R/O Post Obstructive Pneumonia/Empyema -Afebrile w.o white count -Per ID: -Cefepime: day 11 -Vanc day 8 -c/w IV abx for 2-3 more days then switch to oral Hx of NSCLC w/ EGFR Mutation -Per Heme-Onc: c/w Osimertinib 80mg QD HTN -c/w Toprol 50mg PPx -GI: Protonix 20mg q daily -DVT: Lovenox 40mg, SCDs FEN: -No standing fluids -Lytes -Mg/Vit D/Vit C -Regular diet Dispo: Continue to monitor on floors Visit type - Emergency Visit Emergency Visit: No - New Patient This patient is new to me today: No - Critical Care Critical Care patient: No - Discharge Referral Referred to [facility] Med P.C.: No ATTENDING PHYSICIAN STATEMENT I saw and evaluated the patient. I reviewed the resident's note and discussed the case with the resident. I agree with the resident's findings and plan as documented. SUBJECTIVE: OBJECTIVE: ASSESSMENT AND PLAN:
--- NOTE | 2020-08-28 15:37 | PN ---
Progress Note (short form) - Note Progress Note: Pt has no complaint VSS-afeb non-toxic lungs- dec bs L base Left post dressing clean cvs-reg S1S2 abd-soft ext-no edema Imp: pleural drainage decreased s/p cath removal cont abx as outlined per ID lung cancer, continuing tagrisso mod anemia - has developed over course of this hospitalization and suspect multifactorial etiol inclu infxn, abx, malig, blood draws. B12, fol non- deficient, TFTs nl. Iron studies c/w acd +/- deficiency. Can send soluble transferrin receptor to help clarify and consider start oral supplement to see if anemia improves
[2020-08-28] MEDS: OSIMERTINIB 80 MG PO SCH (18:02)
[2020-08-29] MEDS ORDERED: PT OWN MED DRAWER 7, Y5N ONE ×5 (02:01→17:03)
[2020-08-29] MEDS: CEFEPIME 2 GM in DEXTROSE 5%-WATER 100 ML IVPB SCH ×3 (02:10→17:09)
[2020-08-29 07:27] LABS: BASO % 0.3 % (0-2.0); EOS % 0.8 % (0-4.5); HEMATOCRIT 26.9 % (32.4-45.2); HEMOGLOBIN 8.8 GM/dL (10.7-15.3); LYMPH % 5.7 % (8-40); MCH 26.4 pg (25.7-33.7); MCHC 32.7 g/dl (32.0-36.0); MEAN CELL VOLUME 80.8 fl (80-96); MEAN PLT VOLUME 9.8 fl (7.5-11.1); MONO % 7.2 % (3.8-10.2); PLATELET COUNT 337 K/MM3 (134-434); RBC 3.34 M/mm3 (3.60-5.2); RDW 15.8 % (11.6-15.6); WHITE BLOOD COUNT 8.7 K/mm3 (4.0-10.0)
[2020-08-29 07:48] LABS: BLOOD UREA NITROGEN 17.3 mg/dL (7-18); CALCIUM 8.3 mg/dL (8.5-10.1); CREATININE 0.7 mg/dL (0.55-1.3); MAGNESIUM 2.4 mg/dL (1.8-2.4); PHOSPHOROUS 2.6 mg/dL (2.5-4.9); POTASSIUM 3.9 mmol/L (3.5-5.1)
--- NOTE | 2020-08-29 08:37 | PN ---
Progress Note, Physician History of Present Illness: stable no new issues - Current Medication List Current Medications: Active Medications Acetaminophen (Tylenol -) 650 mg PO Q4H PRN PRN Reason: FEVER Last Admin: 08/22/20 01:46 Dose: 650 mg Documented by: Ascorbic Acid (Vitamin C -) 500 mg PO DAILY [facility] Last Admin: 08/28/20 10:12 Dose: 500 mg Documented by: Aspirin (Asa -) 81 mg PO DAILY [facility] Last Admin: 08/28/20 10:13 Dose: 81 mg Documented by: Cholecalciferol (Vitamin D3 -) 1,000 unit PO DAILY [facility] Last Admin: 08/28/20 10:13 Dose: 1,000 unit Documented by: Enoxaparin Sodium (Lovenox -) 40 mg SQ DAILY [facility] Last Admin: 08/28/20 10:12 Dose: 40 mg Documented by: Hydrocortisone (Hytone 1% Cream -) 1 applic TP BID [facility] Last Admin: 08/28/20 21:23 Dose: 1 applic Documented by: Vancomycin HCl 1,250 mg/ (Dextrose) 250 mls @ 250 mls/2 hr IVPB Q24H [facility]; Protocol Last Admin: 08/28/20 12:55 Dose: 250 mls/2 hr Documented by: Cefepime HCl 2 gm/ Dextrose 100 mls @ 100 mls/hr IVPB Q8H-IV [facility]; Protocol Last Admin: 08/29/20 02:10 Dose: 100 mls/hr Documented by: Magnesium Oxide (Mag-Ox -) 200 mg PO DAILY [facility] Last Admin: 08/28/20 10:12 Dose: 200 mg Documented by: Metoprolol Succinate (Toprol Xl -) 50 mg PO DAILY [facility] Last Admin: 08/28/20 10:12 Dose: 50 mg Documented by: (Osimertinib 80mg [ (Tagrisso])) 1 each PO DAILY@1700 [facility] Last Admin: 08/28/20 18:02 Dose: 1 each Documented by: Ondansetron HCl (Zofran Injection) 4 mg IVPUSH Q6H PRN PRN Reason: NAUSEA Pantoprazole Sodium (Protonix -) 20 mg PO DAILY [facility] Last Admin: 08/28/20 10:12 Dose: 20 mg Documented by: Potassium Phos/Sodium Phos (Phos-Nak Packet -) 1 packet PO ONCE ONE Stop: 08/29/20 08:20 Zinc Sulfate (Orazinc -) 220 mg PO ONCE ONE Stop: 08/29/20 08:20 - Objective Vital Signs: Vital Signs Temperature 98.4 F 08/29/20 06:00 Pulse Rate 109 H 08/29/20 06:00 Respiratory Rate 18 08/29/20 06:00 Blood Pressure 91/46 L 08/29/20 06:00 O2 Sat by Pulse Oximetry (%) 97 08/29/20 06:00 Constitutional: Yes: No Distress, Calm Cardiovascular: Yes: S1, S2 Respiratory: Yes: Regular, CTA Bilaterally Gastrointestinal: Yes: Normal Bowel Sounds, Soft Musculoskeletal: Yes: WNL Extremities: Yes: WNL Neurological: Yes: Alert, Oriented Labs: CBC, BMP 08/29/20 06:15 08/29/20 06:15 INR, PTT INR 1.25 (0.83-1.09) H 08/17/20 18:15 Assessment/Plan Problem List - Problems (1) Fever Code(s): R50.9 - FEVER, UNSPECIFIED Qualifiers: Fever type: unspecified Qualified Code(s): R50.9 - Fever, unspecified (2) Lung cancer Code(s): C34.90 - MALIGNANT NEOPLASM OF UNSP PART OF UNSP BRONCHUS OR LUNG Qualifiers: Laterality: unspecified laterality Lung location: unspecified part of lung Qualified Code(s): C34.90 - Malignant neoplasm of unspecified part of unspecified bronchus or lung (3) Malignant pleural effusion Code(s): J91.0 - MALIGNANT PLEURAL EFFUSION plan continue abx can change from tomorrow to clinda and augmentin combination for a week more
[2020-08-29] MEDS ORDERED: NAPH,MB-DB/K PH,MBDB POWDER PACKET PO ONE (09:15)
[2020-08-29] MEDS ORDERED: ZINC SULFATE 220 MG CAPSULE (FP) PO ONE (09:15)
[2020-08-29] MEDS: ASPIRIN 81 MG CHEWABLE TABLETS PO SCH (09:42)
[2020-08-29] MEDS: PANTOPRAZOLE 20 MG TABLET PO SCH (09:42)
[2020-08-29] MEDS: ASCORBIC ACID 500 MG TABLET (FP) PO SCH (09:42)
[2020-08-29] MEDS: ENOXAPARIN NA (PORCINE) 40 MG/0.4 ML DISP.SYRIN SQ SCH (09:42)
[2020-08-29] MEDS: MAGNESIUM OXIDE 400 MG TABLET (FP) PO SCH (09:43)
[2020-08-29] MEDS: CHOLECALCIFEROL (VIT D3) 1,000 UNIT (25 MCG) TABLET PO SCH (09:44)
[2020-08-29] MEDS: HYDROCORTISONE 1% TOPICAL CREAM 30 GM TUBE TP SCH ×2 (09:49→21:33)
--- NOTE | 2020-08-29 10:53 | PN ---
Physical Exam: SUBJECTIVE: Patient seen and examined this AM. No new complaints. OBJECTIVE: Vital Signs Period Temp Pulse Resp BP Sys/Gonzalez Pulse Ox Last 24 Hr 98.4 F-99.1 F 93-109 18-18 91-107/46-57 96-98 GENERAL: A&Ox3, NAD HEAD: NCAT EYES: PERRL, EOMI ENT: MMM NECK: Supple LUNGS: DIminished breath sounds at the bases HEART: Regular rate and rhythm, S1, S2 without murmur ABDOMEN: Soft, nontender, nondistended, + bowel sounds, no guarding EXTREMITIES: no edema NEUROLOGICAL: Cranial nerves II through XII grossly intact. SKIN: Warm, dry. Left sided Chest wound with minimal drainaged, Dressing C/D/I without surrounding erythem Laboratory Last Values WBC 8.7 K/mm3 (4.0-10.0) 08/29/20 06:15 RBC 3.34 M/mm3 (3.60-5.2) L 08/29/20 06:15 Hgb 8.8 GM/dL (10.7-15.3) L 08/29/20 06:15 Hct 26.9 % (32.4-45.2) L 08/29/20 06:15 MCV 80.8 fl (80-96) 08/29/20 06:15 MCH 26.4 pg (25.7-33.7) 08/29/20 06:15 MCHC 32.7 g/dl (32.0-36.0) 08/29/20 06:15 RDW 15.8 % (11.6-15.6) H 08/29/20 06:15 Plt Count 337 K/MM3 (134-434) 08/29/20 06:15 MPV 9.8 fl (7.5-11.1) 08/29/20 06:15 Absolute Neuts (auto) 7.5 K/mm3 (1.5-8.0) 08/29/20 06:15 Neutrophils % 86.0 % (42.8-82.8) H 08/29/20 06:15 Lymphocytes % 5.7 % (8-40) L D 08/29/20 06:15 Monocytes % 7.2 % (3.8-10.2) 08/29/20 06:15 Eosinophils % 0.8 % (0-4.5) 08/29/20 06:15 Basophils % 0.3 % (0-2.0) 08/29/20 06:15 Nucleated RBC % 0 % (0-0) 08/29/20 06:15 PT with INR 14.80 SEC (9.7-13.0) H 08/17/20 18:15 INR 1.25 (0.83-1.09) H 08/17/20 18:15 PTT (Actin FS) 30.9 SECONDS (25.2-36.5) 08/17/20 18:15 VBG pH 7.428 (7.310-7.410) H 08/17/20 18:15 POC VBG pCO2 36.4 mmHg (38-52) L 08/17/20 18:15 POC VBG pO2 40.4 mmHg (28-48) 08/17/20 18:15 VBG HCO3 23.5 mmol/L (23-29) 08/17/20 18:15 VBG O2 Sat (Tami) 77.3 % (70-80) 08/17/20 18:15 VBG Base Excess -0.5 mmol/L (-2-2) 08/17/20 18:15 Sodium 135 mmol/L (136-145) L 08/29/20 06:15 Potassium 3.9 mmol/L (3.5-5.1) 08/29/20 06:15 Chloride 99 mmol/L (98-107) 08/29/20 06:15 Carbon Dioxide 29 mmol/L (21-32) 08/29/20 06:15 Anion Gap 6 MMOL/L (8-16) L 08/29/20 06:15 BUN 17.3 mg/dL (7-18) 08/29/20 06:15 Creatinine 0.7 mg/dL (0.55-1.3) 08/29/20 06:15 Est GFR (CKD-EPI)AfAm 109.15 08/29/20 06:15 Est GFR (CKD-EPI)NonAf 94.17 08/29/20 06:15 Random Glucose 94 mg/dL (74-106) 08/29/20 06:15 Lactic Acid 1.2 mmol/L (0.4-2.0) 08/17/20 18:15 Calcium 8.3 mg/dL (8.5-10.1) L 08/29/20 06:15 Phosphorus 2.6 mg/dL (2.5-4.9) 08/29/20 06:15 Magnesium 2.4 mg/dL (1.8-2.4) 08/29/20 06:15 Iron 19 ug/dL (50-175) L 08/26/20 07:40 TIBC 168 ug/dL (250-450) L 08/26/20 07:40 Iron Saturation 11 % (17.5-39) L 08/26/20 07:40 Unsaturated IBC 149 ug/dL (200-275) L 08/26/20 07:40 Ferritin 516.4 ng/ml (8-388) H 08/26/20 07:40 Total Bilirubin 0.3 mg/dL (0.2-1) 08/27/20 06:42 AST 27 U/L (15-37) 08/27/20 06:42 ALT 33 U/L (13-61) 08/27/20 06:42 Alkaline Phosphatase 127 U/L (45-117) H 08/27/20 06:42 Creatine Kinase 57 U/L (26-192) 08/17/20 18:15 Troponin I < 0.02 ng/ml (0.00-0.05) 08/17/20 18:15 Total Protein 5.6 g/dl (6.4-8.2) L 08/27/20 06:42 Albumin 2.0 g/dl (3.4-5.0) L 08/27/20 06:42 Vitamin B12 516 pg/ml (193-986) 08/26/20 07:40 Folate 1248 ng/mL (>498) 08/26/20 07:40 Folate Hemolysate 342.0 ng/mL (Not Estab.) 08/26/20 07:40 TSH 1.69 uIU/ml (0.358-3.74) 08/26/20 07:40 Free T4 1.26 ng/dl (0.76-1.46) 08/26/20 07:40 Urine Color Yellow 08/17/20 21:07 Urine Appearance Clear 08/17/20 21:07 Urine pH 5.0 (5.0-8.0) 08/17/20 21:07 Ur Specific [place] 1.015 (1.010-1.035) 08/17/20 21:07 Urine Protein Negative (NEGATIVE) 08/17/20 21:07 Urine Glucose (UA) Negative (NEGATIVE) 08/17/20 21:07 Urine Ketones Trace (NEGATIVE) H 08/17/20 21:07 Urine Blood Negative (NEGATIVE) 08/17/20 21:07 Urine Nitrite Negative (NEGATIVE) 08/17/20 21:07 Urine Bilirubin Negative (NEGATIVE) 08/17/20 21:07 Urine Urobilinogen 0.2 mg/dL (0.2-1.0) 08/17/20 21:07 Ur Leukocyte Esterase Negative (NEGATIVE) 08/17/20 21:07 Stool Occult Blood Negative (NEGATIVE) 08/29/20 09:00 Vancomycin Pre-Dose 13.0 ug/ml (5-10) H 08/24/20 12:00 COVID-19 (ANGELIQUE) Not detected (Not Detected) 08/17/20 18:15 Blood Type A POSITIVE 08/17/20 18:15 Antibody Screen Negative 08/17/20 18:15 ASSESSMENT/PLAN: 59 y/o F PMHx NSCLC complicated by malignant Rt pleural effusion, HTN, HLD, GERD admitted for sepsis. #Sepsis, Resolved -In the setting of possible empyema vs Wound Infection from Pleurx Catheter Site (now s/p removal) vs SQ Abscess -Dressings in place, C/D/I with dressing changes as per Surgery -ID Evaluation appreciated; Can change to Oral tmrw -Continue ABx: Vanco, Cefepime; Change to PO in AM -Follow up CT Surgery rec's #NSCLC -Pleural effusions improving -Continue Osimertinib -DVT PPx #Anemia -Unclear Etiology; Possibly Anemia of chonic inflamation vs Bone marrow suppression from Osimertinib use -Transfuse to keep Hgb > 7.0 Visit type - Emergency Visit Emergency Visit: Yes ED Registration Date: 08/17/20 Care time: The patient presented to the Emergency Department on the above date and was hospitalized for further evaluation of their emergent condition. - New Patient This patient is new to me today: Yes Date on this admission: 09/02/20 - Critical Care Critical Care patient: No - Discharge Referral Referred to [facility] Med P.C.: No ATTENDING PHYSICIAN STATEMENT I saw and evaluated the patient. I reviewed the resident's note and discussed the case with the resident. I agree with the resident's findings and plan as documented. SUBJECTIVE: OBJECTIVE: ASSESSMENT AND PLAN:
[2020-08-29] MEDS: VANCOMYCIN HCL 1,250 MG in DEXTROSE 5%-WATER - 250 ML IVPB SCH (12:06)
--- NOTE | 2020-08-29 13:01 | PN ---
Progress Note (short form) - Note Progress Note: Resting in NAD. No significant cough. Denies CP or SOB. No fever recorded. No pain at the previous catheter site. Dressing intact. Intake & Output 08/26/20 08/27/20 08/28/20 08/29/20 23:59 23:59 23:59 23:59 Intake Total 321 541 2903 350 Output Total 100 Balance 034 533 7423 250 Last Vital Signs Temp Pulse Resp BP Pulse Ox 98.4 F 109 H 18 91/46 L 97 08/29/20 06:00 08/29/20 06:00 08/29/20 06:00 08/29/20 06:00 08/29/20 06:00 Active Medications Acetaminophen (Tylenol -) 650 mg PO Q4H PRN PRN Reason: FEVER Last Admin: 08/22/20 01:46 Dose: 650 mg Documented by: Ascorbic Acid (Vitamin C -) 500 mg PO DAILY [facility] Last Admin: 08/29/20 09:42 Dose: 500 mg Documented by: Aspirin (Asa -) 81 mg PO DAILY [facility] Last Admin: 08/29/20 09:42 Dose: 81 mg Documented by: Cholecalciferol (Vitamin D3 -) 1,000 unit PO DAILY [facility] Last Admin: 08/29/20 09:44 Dose: 1,000 unit Documented by: Enoxaparin Sodium (Lovenox -) 40 mg SQ DAILY [facility] Last Admin: 08/29/20 09:42 Dose: 40 mg Documented by: Hydrocortisone (Hytone 1% Cream -) 1 applic TP BID [facility] Last Admin: 08/29/20 09:49 Dose: 1 applic Documented by: Vancomycin HCl 1,250 mg/ (Dextrose) 250 mls @ 250 mls/2 hr IVPB Q24H [facility]; Protocol Last Admin: 08/29/20 12:06 Dose: 250 mls/2 hr Documented by: Cefepime HCl 2 gm/ Dextrose 100 mls @ 100 mls/hr IVPB Q8H-IV [facility]; Protocol Last Admin: 08/29/20 09:44 Dose: 100 mls/hr Documented by: Magnesium Oxide (Mag-Ox -) 200 mg PO DAILY [facility] Last Admin: 08/29/20 09:43 Dose: 200 mg Documented by: Metoprolol Succinate (Toprol Xl -) 50 mg PO DAILY [facility] Last Admin: 08/29/20 09:42 Dose: 50 mg Documented by: (Osimertinib 80mg [ (Tagrisso])) 1 each PO DAILY@1700 [facility] Last Admin: 08/28/20 18:02 Dose: 1 each Documented by: Ondansetron HCl (Zofran Injection) 4 mg IVPUSH Q6H PRN PRN Reason: NAUSEA Last Admin: 08/29/20 12:26 Dose: 4 mg Documented by: Pantoprazole Sodium (Protonix -) 20 mg PO DAILY [facility] Last Admin: 08/29/20 09:42 Dose: 20 mg Documented by: Gen: NAD at rest Heart: RRR Lung: decreased breath sounds left base, dressing intact Abd: soft, nontender Ext: no edema Laboratory Results - last 24 hr 08/29/20 08/29/20 08/29/20 06:15 06:15 09:00 WBC 8.7 RBC 3.34 L Hgb 8.8 L Hct 26.9 L MCV 80.8 MCH 26.4 MCHC 32.7 RDW 15.8 H Plt Count 337 MPV 9.8 Absolute Neuts (auto) 7.5 Neutrophils % 86.0 H Lymphocytes % 5.7 L D Monocytes % 7.2 Eosinophils % 0.8 Basophils % 0.3 Nucleated RBC % 0 Sodium 135 L Potassium 3.9 Chloride 99 Carbon Dioxide 29 Anion Gap 6 L BUN 17.3 Creatinine 0.7 Est GFR (CKD-EPI)AfAm 109.15 Est GFR (CKD-EPI)NonAf 94.17 Random Glucose 94 Calcium 8.3 L Phosphorus 2.6 Magnesium 2.4 Stool Occult Blood Negative IMP: Pneumonia vs Subcutaneous Abscess vs Empyema: the patient is currently afebrile and reports being relatively asymptomatic Malignant Right Pleural Effusion s/p recent chest tube removal Lung Cancer HTN Hyperlipidemia - PO ABX per ID - Supplemental O2 as needed - VTE prophylaxis - DC planning Dr Damon
--- NOTE | 2020-08-29 14:24 | PN ---
Physical Exam: SUBJECTIVE: Patient seen and examined today, informed of remainder of antibiotic course. Overnight states that she felt nausus 2/2 spicy food she ate, however denied any vomiting. Patient denied any loss of taste or appetite. ROS otherwise negative OBJECTIVE: Vital Signs Period Temp Pulse Resp BP Sys/Gonzalez Pulse Ox Last 24 Hr 98.4 F-99.1 F 95-118 18-18 91-107/46-57 96-98 GENERAL: The patient is awake, alert, and fully oriented, in no acute distress. HEAD: Normal with no signs of trauma. EYES: PERRL, extraocular movements intact, sclera anicteric, conjunctiva clear. No ptosis. NECK: Trachea midline, full range of motion, supple. LUNGS: Right sided breath sounds normal, left sided lung sounds normal HEART: Regular rate and rhythm, S1, S2 without murmur, rub or gallop. CHEST: No drainage, wound appears healed, dressings clean. ABDOMEN: Soft, nontender, nondistended, normoactive bowel sounds EXTREMITIES: 2+ pulses, warm, well-perfused, no edema. NEUROLOGICAL: Normal speech, gait not observed. PSYCH: Normal mood, normal affect. SKIN: Warm, dry, normal turgor, no rashes or lesions noted Laboratory Results - last 24 hr CBC, BMP 08/29/20 06:15 08/29/20 06:15 Active Medications Generic Name Dose Route Start Last Admin Trade Name Freq PRN Reason Stop Dose Admin Acetaminophen 650 mg 08/17/20 22:28 08/22/20 01:46 Tylenol - PO 650 mg Q4H PRN Administration FEVER Ascorbic Acid 500 mg 08/18/20 10:00 08/29/20 09:42 Vitamin C - PO 500 mg DAILY MELBA Administration Aspirin 81 mg 08/18/20 10:00 08/29/20 09:42 Asa - PO 81 mg DAILY MELBA Administration Cholecalciferol 1,000 unit 08/18/20 10:00 08/29/20 09:44 Vitamin D3 - PO 1,000 unit DAILY MELBA Administration Enoxaparin Sodium 40 mg 08/27/20 16:45 08/29/20 09:42 Lovenox - SQ 40 mg DAILY MELBA Administration Hydrocortisone 1 applic 08/19/20 22:00 08/29/20 09:49 Hytone 1% Cream - TP 1 applic BID MELBA Administration Vancomycin HCl 1,250 mg/ 250 mls @ 250 mls/2 hr 08/21/20 12:00 08/29/20 12:06 Dextrose IVPB 250 mls/2 hr Q24H MELBA Administration Protocol Cefepime HCl 2 gm/ Dextrose 100 mls @ 100 mls/hr 08/26/20 02:00 08/29/20 09:44 IVPB 100 mls/hr Q8H-IV MELBA Administration Protocol Magnesium Oxide 200 mg 08/18/20 12:00 08/29/20 09:43 Mag-Ox - PO 200 mg DAILY MELBA Administration Metoprolol Succinate 50 mg 08/18/20 12:00 08/29/20 09:42 Toprol Xl - PO 50 mg DAILY MELBA Administration (Osimertinib 80mg [ 1 each 08/19/20 20:01 08/28/20 18:02 Tagrisso]) PO 1 each DAILY@1700 MELBA Administration Ondansetron HCl 4 mg 08/18/20 00:01 08/29/20 12:26 Zofran Injection IVPUSH 4 mg Q6H PRN Administration NAUSEA Pantoprazole Sodium 20 mg 08/18/20 10:00 08/29/20 09:42 Protonix - PO 20 mg DAILY MELBA Administration ASSESSMENT/PLAN: 59 yo F w/ PMHx of HTN, HLD, GERD, Lung CA (Dr. Smallwood) presents with complaints of a fever of 102, found to be septic on admission. Currently s/p removal of pleurx catheter on 08/15/2020 which was placed in May for a pleural effusion. Resolved Sepsis 2/2 r/o Wound Infection 2/2 Pleurx Catheter Site -No drainage, wound site closed -Multi-Disciplanary: -ID c/w: Vanc - Day 9; Cefepime - Day 12; Clindamycin and Augmentin combination x1 week s/p DC -CT Surg: Recommend continued abx and dressing change BID. CHRONIC ANEMIA LIKELY 2/2 r/o IRON DEFICIENCY VS TAGRISSO VS CHRONIC DISEASE -Heme-Onc: FU soluble transferring receptor levels (pending) -Trend CBC -Transfuse <7.0 -FOBT: Negative RESOLVED Sepsis 2/2 Pulmonary Infection: R/O Post Obstructive Pneumonia/Empyema -Afebrile w.o white count Hx of NSCLC w/ EGFR Mutation -Per Heme-Onc: c/w Osimertinib 80mg QD HTN -c/w Toprol 50mg PPx -GI: Protonix 20mg q daily -DVT: Lovenox 40mg, SCDs FEN: -No standing fluids -Lytes -Mg/Vit D/Vit C -Regular diet Dispo: Continue to monitor on floors, DC planning for tomorrow Visit type - Emergency Visit Emergency Visit: No - New Patient This patient is new to me today: No - Critical Care Critical Care patient: No - Discharge Referral Referred to [facility] Med P.C[facility] No ATTENDING PHYSICIAN STATEMENT I saw and evaluated the patient. I reviewed the resident's note and discussed the case with the resident. I agree with the resident's findings and plan as documented. SUBJECTIVE: OBJECTIVE: ASSESSMENT AND PLAN:
--- NOTE | 2020-08-29 15:16 | PN ---
Teaching Attending Note Name of Resident: Wiflredo Roa ATTENDING PHYSICIAN STATEMENT I saw and evaluated the patient. I reviewed the resident's note and discussed the case with the resident. I agree with the resident's findings and plan as documented. SUBJECTIVE: Patient has no complaints. OBJECTIVE: Vital Signs Period Temp Pulse Resp BP Sys/Gonzalez Pulse Ox Last 24 Hr 98.4 F-99.1 F 95-118 18-18 91-107/46-57 96-98 HEART: S1S2, RRR LUNGS: Clear with decreased BS at left base ABDOMEN: Soft, non-tender, non-distended, normal BS EXTREMITIES: No edema Laboratory Results - last 24 hr 08/29/20 08/29/20 08/29/20 06:15 06:15 09:00 WBC 8.7 RBC 3.34 L Hgb 8.8 L Hct 26.9 L MCV 80.8 MCH 26.4 MCHC 32.7 RDW 15.8 H Plt Count 337 MPV 9.8 Absolute Neuts (auto) 7.5 Neutrophils % 86.0 H Lymphocytes % 5.7 L D Monocytes % 7.2 Eosinophils % 0.8 Basophils % 0.3 Nucleated RBC % 0 Sodium 135 L Potassium 3.9 Chloride 99 Carbon Dioxide 29 Anion Gap 6 L BUN 17.3 Creatinine 0.7 Est GFR (CKD-EPI)AfAm 109.15 Est GFR (CKD-EPI)NonAf 94.17 Random Glucose 94 Calcium 8.3 L Phosphorus 2.6 Magnesium 2.4 Stool Occult Blood Negative Current Medications Generic Name Dose Route Start Last Admin Trade Name Freq PRN Reason Stop Dose Admin Acetaminophen 650 mg 08/17/20 22:28 08/22/20 01:46 Tylenol - PO 650 mg Q4H PRN Administration FEVER Ascorbic Acid 500 mg 08/18/20 10:00 08/29/20 09:42 Vitamin C - PO 500 mg DAILY MELBA Administration Aspirin 81 mg 08/18/20 10:00 08/29/20 09:42 Asa - PO 81 mg DAILY MELBA Administration Cholecalciferol 1,000 unit 08/18/20 10:00 08/29/20 09:44 Vitamin D3 - PO 1,000 unit DAILY MELBA Administration Enoxaparin Sodium 40 mg 08/27/20 16:45 08/29/20 09:42 Lovenox - SQ 40 mg DAILY MELBA Administration Hydrocortisone 1 applic 08/19/20 22:00 08/29/20 09:49 Hytone 1% Cream - TP 1 applic BID MELBA Administration Vancomycin HCl 1,250 mg/ 250 mls @ 250 mls/2 hr 08/21/20 12:00 08/29/20 12:06 Dextrose IVPB 250 mls/2 hr Q24H MELBA Administration Protocol Cefepime HCl 2 gm/ Dextrose 100 mls @ 100 mls/hr 08/26/20 02:00 08/29/20 09:44 IVPB 100 mls/hr Q8H-IV MELBA Administration Protocol Magnesium Oxide 200 mg 08/18/20 12:00 08/29/20 09:43 Mag-Ox - PO 200 mg DAILY MELBA Administration Metoprolol Succinate 50 mg 08/18/20 12:00 08/29/20 09:42 Toprol Xl - PO 50 mg DAILY MELBA Administration (Osimertinib 80mg [ 1 each 08/19/20 20:01 08/28/20 18:02 Tagrisso]) PO 1 each DAILY@1700 MELBA Administration Ondansetron HCl 4 mg 08/18/20 00:01 08/29/20 12:26 Zofran Injection IVPUSH 4 mg Q6H PRN Administration NAUSEA Pantoprazole Sodium 20 mg 08/18/20 10:00 08/29/20 09:42 Protonix - PO 20 mg DAILY MELBA Administration ASSESSMENT AND PLAN: This is a 59 year old woman with a history of HTN, hyperlipidemia, lung cancer with left malignant pleural effusion requiring chest tube who presented to the ED with fever. 1. Sepsis secondary to pneumonia, possible empyema, possible subcutaneous abscess - Culture of chest tube site growing MRSA, Acinetobacter, coag neg Staph - Continue cefepime, vancomycin - Plan to change to Augmentin, clindamycin x 7 days tomorrow 2. Anemia secondary to chronic illness - Hgb stable 3. Adenocarcinoma of lung - On osimertinib - s/p recent chest tube drainage of malignant left pleural effusion 4. HTN - Continue Toprol XL 5. Hyperlipidemia
--- NOTE | 2020-08-29 16:13 | PN ---
Teaching Attending Note Name of Resident: Rosetta Lawrence ATTENDING PHYSICIAN STATEMENT I saw and evaluated the patient. I reviewed the resident's note and discussed the case with the resident. I agree with the resident's findings and plan as documented. 59y F with EGFR metastatic lung adeno on tagrisso with complications of pleurex. Now removed and will be transitioned to oral antibiotics. Patient can follow with primary oncologist as outpt and c/w tagrisso.
[2020-08-29] MEDS: OSIMERTINIB 80 MG PO SCH (17:09)
[2020-08-30] MEDS ORDERED: PT OWN MED DRAWER 7, Y5N ONE ×2 (01:45→10:05)
[2020-08-30] MEDS: CEFEPIME 2 GM in DEXTROSE 5%-WATER 100 ML IVPB SCH ×2 (01:54→10:34)
--- NOTE | 2020-08-30 07:55 | PN ---
Progress Note, Physician - Current Medication List Current Medications: Active Medications Acetaminophen (Tylenol -) 650 mg PO Q4H PRN PRN Reason: FEVER Last Admin: 08/22/20 01:46 Dose: 650 mg Documented by: Ascorbic Acid (Vitamin C -) 500 mg PO DAILY [facility] Last Admin: 08/29/20 09:42 Dose: 500 mg Documented by: Aspirin (Asa -) 81 mg PO DAILY [facility] Last Admin: 08/29/20 09:42 Dose: 81 mg Documented by: Cholecalciferol (Vitamin D3 -) 1,000 unit PO DAILY [facility] Last Admin: 08/29/20 09:44 Dose: 1,000 unit Documented by: Enoxaparin Sodium (Lovenox -) 40 mg SQ DAILY [facility] Last Admin: 08/29/20 09:42 Dose: 40 mg Documented by: Hydrocortisone (Hytone 1% Cream -) 1 applic TP BID [facility] Last Admin: 08/29/20 21:33 Dose: 1 applic Documented by: Vancomycin HCl 1,250 mg/ (Dextrose) 250 mls @ 250 mls/2 hr IVPB Q24H [facility]; Protocol Last Admin: 08/29/20 12:06 Dose: 250 mls/2 hr Documented by: Cefepime HCl 2 gm/ Dextrose 100 mls @ 100 mls/hr IVPB Q8H-IV [facility]; Protocol Last Admin: 08/30/20 01:54 Dose: 100 mls/hr Documented by: Magnesium Oxide (Mag-Ox -) 200 mg PO DAILY [facility] Last Admin: 08/29/20 09:43 Dose: 200 mg Documented by: Metoprolol Succinate (Toprol Xl -) 50 mg PO DAILY [facility] Last Admin: 08/29/20 09:42 Dose: 50 mg Documented by: (Osimertinib 80mg [ (Tagrisso])) 1 each PO DAILY@1700 [facility] Last Admin: 08/29/20 17:09 Dose: 1 each Documented by: Ondansetron HCl (Zofran Injection) 4 mg IVPUSH Q6H PRN PRN Reason: NAUSEA Last Admin: 08/29/20 12:26 Dose: 4 mg Documented by: Pantoprazole Sodium (Protonix -) 20 mg PO DAILY [facility] Last Admin: 08/29/20 09:42 Dose: 20 mg Documented by: - Objective Vital Signs: Vital Signs Temperature 98.4 F 08/30/20 05:59 Pulse Rate 71 08/30/20 05:59 Respiratory Rate 18 08/30/20 05:59 Blood Pressure 103/50 L 08/30/20 05:59 O2 Sat by Pulse Oximetry (%) 98 08/30/20 05:59 Labs: CBC, BMP 08/29/20 06:15 08/29/20 06:15 INR, PTT INR 1.25 (0.83-1.09) H 08/17/20 18:15 Assessment/Plan A/P Pneumonia vs Subcutaneous Abscess vs Empyema: the patient is currently afebrile and reports being relatively asymptomatic Malignant Right Pleural Effusion s/p recent chest tube removal Lung Cancer HTN Hyperlipidemia - ABX per ID - Supplemental O2 as needed - VTE prophylaxis - Repeat CXR in AM DR PAZ
[2020-08-30 08:19] LABS: BASO % 0.4 % (0-2.0); EOS % 0.3 % (0-4.5); HEMATOCRIT 26.7 % (32.4-45.2); HEMOGLOBIN 8.9 GM/dL (10.7-15.3); LYMPH % 6.1 % (8-40); MCH 26.7 pg (25.7-33.7); MCHC 33.2 g/dl (32.0-36.0); MEAN CELL VOLUME 80.4 fl (80-96); MEAN PLT VOLUME 10.2 fl (7.5-11.1); MONO % 9.4 % (3.8-10.2); NEUT % 83.8 % (42.8-82.8); PLATELET COUNT 279 K/MM3 (134-434); RBC 3.32 M/mm3 (3.60-5.2); RDW 15.4 % (11.6-15.6); WHITE BLOOD COUNT 7.6 K/mm3 (4.0-10.0)
[2020-08-30 08:45] LABS: BLOOD UREA NITROGEN 18.2 mg/dL (7-18); CALCIUM 8.4 mg/dL (8.5-10.1); CREATININE 0.9 mg/dL (0.55-1.3); POTASSIUM 3.9 mmol/L (3.5-5.1)
--- NOTE | 2020-08-30 10:30 | PN ---
Progress Note, Physician History of Present Illness: stable no new issues - Current Medication List Current Medications: Active Medications Acetaminophen (Tylenol -) 650 mg PO Q4H PRN PRN Reason: FEVER Last Admin: 08/22/20 01:46 Dose: 650 mg Documented by: Ascorbic Acid (Vitamin C -) 500 mg PO DAILY [facility] Last Admin: 08/29/20 09:42 Dose: 500 mg Documented by: Aspirin (Asa -) 81 mg PO DAILY [facility] Last Admin: 08/29/20 09:42 Dose: 81 mg Documented by: Cholecalciferol (Vitamin D3 -) 1,000 unit PO DAILY [facility] Last Admin: 08/29/20 09:44 Dose: 1,000 unit Documented by: Enoxaparin Sodium (Lovenox -) 40 mg SQ DAILY [facility] Last Admin: 08/29/20 09:42 Dose: 40 mg Documented by: Hydrocortisone (Hytone 1% Cream -) 1 applic TP BID [facility] Last Admin: 08/29/20 21:33 Dose: 1 applic Documented by: Vancomycin HCl 1,250 mg/ (Dextrose) 250 mls @ 250 mls/2 hr IVPB Q24H [facility]; Protocol Last Admin: 08/29/20 12:06 Dose: 250 mls/2 hr Documented by: Cefepime HCl 2 gm/ Dextrose 100 mls @ 100 mls/hr IVPB Q8H-IV [facility]; Protocol Last Admin: 08/30/20 01:54 Dose: 100 mls/hr Documented by: Magnesium Oxide (Mag-Ox -) 200 mg PO DAILY [facility] Last Admin: 08/29/20 09:43 Dose: 200 mg Documented by: Metoprolol Succinate (Toprol Xl -) 50 mg PO DAILY [facility] Last Admin: 08/29/20 09:42 Dose: 50 mg Documented by: (Osimertinib 80mg [ (Tagrisso])) 1 each PO DAILY@1700 [facility] Last Admin: 08/29/20 17:09 Dose: 1 each Documented by: Ondansetron HCl (Zofran Injection) 4 mg IVPUSH Q6H PRN PRN Reason: NAUSEA Last Admin: 08/29/20 12:26 Dose: 4 mg Documented by: Pantoprazole Sodium (Protonix -) 20 mg PO DAILY [facility] Last Admin: 08/29/20 09:42 Dose: 20 mg Documented by: - Objective Vital Signs: Vital Signs Temperature 98.4 F 08/30/20 05:59 Pulse Rate 71 08/30/20 05:59 Respiratory Rate 18 08/30/20 05:59 Blood Pressure 103/50 L 08/30/20 05:59 O2 Sat by Pulse Oximetry (%) 98 08/30/20 05:59 Constitutional: Yes: No Distress, Calm Cardiovascular: Yes: S1, S2 Respiratory: Yes: Regular, CTA Bilaterally Gastrointestinal: Yes: Normal Bowel Sounds, Soft Musculoskeletal: Yes: WNL Extremities: Yes: WNL Neurological: Yes: Alert, Oriented Psychiatric: Yes: Alert, Oriented Labs: CBC, BMP 08/30/20 06:43 08/30/20 06:43 INR, PTT INR 1.25 (0.83-1.09) H 08/17/20 18:15 Assessment/Plan Problem List - Problems (1) Fever Code(s): R50.9 - FEVER, UNSPECIFIED Qualifiers: Fever type: unspecified Qualified Code(s): R50.9 - Fever, unspecified (2) Lung cancer Code(s): C34.90 - MALIGNANT NEOPLASM OF UNSP PART OF UNSP BRONCHUS OR LUNG Qualifiers: Laterality: unspecified laterality Lung location: unspecified part of lung Qualified Code(s): C34.90 - Malignant neoplasm of unspecified part of unspecified bronchus or lung (3) Malignant pleural effusion Code(s): J91.0 - MALIGNANT PLEURAL EFFUSION plan continue abx can change from tomorrow to clinda and augmentin combination for a week more
[2020-08-30] MEDS: MAGNESIUM OXIDE 400 MG TABLET (FP) PO SCH (10:32)
[2020-08-30] MEDS: ASCORBIC ACID 500 MG TABLET (FP) PO SCH (10:33)
[2020-08-30] MEDS: PANTOPRAZOLE 20 MG TABLET PO SCH (10:33)
[2020-08-30] MEDS: ASPIRIN 81 MG CHEWABLE TABLETS PO SCH (10:33)
[2020-08-30] MEDS: ENOXAPARIN NA (PORCINE) 40 MG/0.4 ML DISP.SYRIN SQ SCH (10:33)
[2020-08-30] MEDS: HYDROCORTISONE 1% TOPICAL CREAM 30 GM TUBE TP SCH (10:34)
[2020-08-30] MEDS: CHOLECALCIFEROL (VIT D3) 1,000 UNIT (25 MCG) TABLET PO SCH (10:34)
[2020-08-30] MEDS: VANCOMYCIN HCL 1,250 MG in DEXTROSE 5%-WATER - 250 ML IVPB SCH (12:58)
[2020-08-30] MEDS ORDERED: FLU VACCINE (FLULAVAL) PF 60 MCG/0.5 ML SYRINGE 2020-2021 IM ONE (13:00)
[2020-08-30 14:47] VITALS: BP 95/54; PULSE 97; TEMP 97.9
--- NOTE | 2020-08-30 15:46 | PN ---
Teaching Attending Note Name of Resident: Wilfredo Roa ATTENDING PHYSICIAN STATEMENT I saw and evaluated the patient. I reviewed the resident's note and discussed the case with the resident. I agree with the resident's findings and plan as documented. SUBJECTIVE: No fever or chills. No LUCIA , no pain , no diarrhea , no constipation , no abd pain. no SOB. she feels much better OBJECTIVE: NAD awake, alert. CV: RRR, no MRG Lungs: CTAB , slightly decreased breath sounds at L base Ext: No edema or erythema on LEs Skin: L posterior chest wall with no erythema, wound at site of CT with no drainage , almost completely healed. Abd: soft, NT, ND, nl BS Assessment/Plan: Unfortunate 59 y/o lady with h/o L lung ca, s/p CT removal 08/15/20 , HTN, HLP, L malignant pleural effusion who presented with fever . She was found to be septic 1- Sepsis: due to ? empyema nd infected chest tube site . repeat CT scan reviewed. CT surgery and PUlm ID notes reviewed. case was d/w Dr. Barba. per d/w residents who d/w with all consultants last week: no pleural fluid drainage was deemed necessary since she was clinically getting better cont Aug and clinda for one more week after dc f/u with CT surgery and primary and pulm f/u with her first line supervisor 2- h/o HTN: cont BB 3- H/o Lung cancer. cont home Tagrisso an f/u withher onc 4-HLP resume statin at dc Dc home with VNS. d/w social worker clinical
--- NOTE | 2020-08-30 15:55 | DS ---
Physical Exam: SUBJECTIVE: Patient seen and examined today in no acute distress. No F/C, LUCIA, CP, SoB, N/V/D OBJECTIVE: Vital Signs Period Temp Pulse Resp BP Sys/Gonzalez Pulse Ox Last 24 Hr 97.9 F-98.7 F 71-118 18- 92-103/50-74 97-98 PHYSICAL EXAM GENERAL: The patient is awake, alert, and fully oriented, in no acute distress. HEAD: Normal with no signs of trauma. EYES: PERRL, extraocular movements intact, sclera anicteric, conjunctiva clear. No ptosis. NECK: Trachea midline, full range of motion, supple. LUNGS: Right sided breath sounds normal, left sided lung sounds normal HEART: Regular rate and rhythm, S1, S2 without murmur, rub or gallop. CHEST: No drainage, wound appears healed, dressings clean. ABDOMEN: Soft, nontender, nondistended, normoactive bowel sounds EXTREMITIES: 2+ pulses, warm, well-perfused, no edema. NEUROLOGICAL: Normal speech, gait not observed. PSYCH: Normal mood, normal affect. SKIN: Warm, dry, normal turgor, no rashes or lesions noted LABS Laboratory Results - last 24 hr 08/30/20 08/30/20 06:43 06:43 WBC 7.6 RBC 3.32 L Hgb 8.9 L Hct 26.7 L MCV 80.4 MCH 26.7 MCHC 33.2 RDW 15.4 Plt Count 279 MPV 10.2 Absolute Neuts (auto) 6.4 Neutrophils % 83.8 H Lymphocytes % 6.1 L Monocytes % 9.4 Eosinophils % 0.3 Basophils % 0.4 Nucleated RBC % 0 Sodium 134 L Potassium 3.9 Chloride 96 L Carbon Dioxide 29 Anion Gap 8 BUN 18.2 H Creatinine 0.9 Est GFR (CKD-EPI)AfAm 80.55 Est GFR (CKD-EPI)NonAf 69.50 Random Glucose 84 Calcium 8.4 L HOSPITAL COURSE: Date of Admission:08/17/20 CT Chest (08/17/2020) In comparison to a prior CT exam of 07/12/2020 there has been interval removal of a left-sided Pleurx catheter (performed on 08/15/2020). Note is again made of a small to moderate loculated pleural fluid collection within the left lower chest which appears somewhat smaller in size. Interval appearance of a small amount of air is seen within the left basilar fluid collection CT Chest (08/23/2020): 1. No significant change in loculated air and fluid collection within the left lower chest suspicious for empyema. 2. Decrease in size of anterior and lateral left chest fluid. 3. Developing small right pleural effusion with basilar atelectasis. Clinical correlation and continued follow-up recommended. Please see above discussion. CXR (08/28): Since the prior study of 08/23/2020 the left effusion has diminished slightly. The right effusion has also diminished. There is still residual fluid at both bases with some atelectasis or infiltrate on the left Date of Discharge: 08/30/20 59 yo F w/ PMHx of HTN, HLD, GERD, Lung CA (follows Dr. Smallwood) who presented to the emergency department with complaints of a fever of 102. The patient was s/p chest tube removal 2 days prior to admission which was placed in May for pleural effusion. Denied any changes in urinary habits, also denies nausea, vomiting, or diarrhea. Denies recent travel In the ED, a CT chest was ordered and Vanc/Cefepime was given after which the patient was transferred to the floors for further management. A multi- disciplanary team managed the patient including IM, ID, Heme-onc, IR, Pulmonol ogy, and Thoracic surgery in order to evaluate the patient's condition. Ptn was being treated for a pneumonia in the setting of Lung CA s/p resection and chemo and prior hyrdothorax s/p pleurex catheter placement and removal, as well as a soft tissue infection at the site of catheter removal. Cefepime was continued and Vancomycin as added for further infection control after the wound culture grew MRSA. The patient continued abx treatment, and clinically improved with decreasing white counts, and becoming afebrile. The multi-disciplanary team following repeat CT decided against a pigtail catheter, and instead opted for conservative management with BID dressing changes. The site healed and ceased to have any drainage. At the time of discharge, the patient was medically stable and sent home with a course of Augmentin and Clinda x1 week as well as VNS and home PT services. Minutes to complete discharge: 36 Discharge Summary Problems reviewed: Yes Reason For Visit: MALIGNANT PLEURAL EFFUSION,PNEUMONIA Current Active Problems Lung cancer (Chronic) Condition: Improved - Instructions Diet, Activity, Other Instructions: Your visit: You were admitted to the hospital for fever, cough, and shortness of breath. You were admitted for care of, "sepsis." This occurred as a result of the infection on your back. While here, you were seen by an infectious disease specialist, oncologist, corporate giving manager, and a thoracic surgeon. You were treated with medications with improvement of your symptoms. You are now stable and may return home. Medications changes: -Please START taking Augmentin twice a day (morning and night) for 7 days, starting tonight -Please START taking Clindamycin four times a day (every 6 hours) for 7 days, starting tonight -Your Lipitor was HELD in the hospital, you may continue taking it at home. -Your K-Dur was HELD in the hospital, please STOP taking this until you see your Primary Care Provider, Dr. Griggs. you need potassium level checked then -Continue to take all other home medications as prescribed. Follow up: - Please follow-up with Dr. Cisneros (Pulmonary) in 1 week to evaluate your lungs - Please follow-up with Dr. Smallwood (Heme/Onco) in 1 week for management of your medications - Please follow-up with Dr. Griggs (Primary Care) in 2 weeks for all of your medical requirements. folow up with Dr. Rubi in 1 week Wound Care Instructions: -Please continue to clean your wound daily with soap and water. Keep the area dry, and covered with tape and bandages unless you are cleaning the area. No scrubbing . keep dry . Follow up with Dr. Smallwood as to when you are able to stop covering the area. -If you notice any signs of increasing pain, redness, swelling or liquid coming from the area, go immediately to the Emergency Room Additional Instructions: -You are being discharged to your home. -Please return to the Emergency Department if you experience worsening shortness of breath/cough, pain, fevers, chills, chest pain, or if you experience any worsening, new or concerning symptoms. Referrals: Brianna Griggs MD [Primary Care Provider] - 2 Weeks Selin Guallpa MD [Staff Physician] - 1 Week Jesse Rubi MD [Staff Physician] - 1 Week Danny Cisneros MD, MD [Staff Physician] - 1 Week Disposition: VNS/HOME HEALTH CARE - Home Medications Comprehensive Discharge Medication List: Ambulatory Orders Atorvastatin Ca [Lipitor] 10 mg PO HS tablet 04/09/14 Cholecalciferol (Vitamin D3) [Vitamin D3 -] 2,000 units PO DAILY 06/14/17 Aspirin 81 mg PO DAILY 02/21/18 Metoprolol Succinate 50 mg PO DAILY 06/10/20 Acetaminophen [Tylenol] 500 mg PO QID PRN 08/17/20 Ascorbate Calcium [Vitamin C] 500 mg PO BID 08/17/20 Magnesium Oxide [Mag-Oxide] 400 mg PO DAILY 08/17/20 Omeprazole 20 mg PO DAILY 08/17/20 Osimertinib Mesylate [Tagrisso] 80 mg PO DAILY 08/17/20 Amoxicillin/Potassium Clav [Augmentin 875-125 Tablet] 1 each PO BID 7 Days #14 tablet 08/30/20 Clindamycin [Cleocin -] 300 mg PO Q8H 7 Days #21 capsule 08/30/20 This patient is new to me today: No Emergency Visit: No Critical Care patient: No - Discharge Referral [facility] to [facility] No ATTENDING PHYSICIAN STATEMENT I saw and evaluated the patient. I reviewed the resident's note and discussed the case with the resident. I agree with the resident's findings and plan as documented. SUBJECTIVE: OBJECTIVE: ASSESSMENT AND PLAN:
[2020-08-30] MEDS: OSIMERTINIB 80 MG PO SCH (16:52)
== END 2020-08-30 18:24 | disposition home health service (06) | DRG 721 ==
LOC: JER 17:42 → JERBED 21:42 → J6S 08-18 13:54
PROVIDERS: ADMIT Internal Medicine; ATTEND Internal Medicine
DX: T81.40XA Infection following a procedure, unspecified, initial encounter (principal); A41.02 Sepsis due to Methicillin resistant Staphylococcus aureus; T81.44XA Sepsis following a procedure, initial encounter; I10 Essential (primary) hypertension; K21.9 Gastro-esophageal reflux disease without esophagitis; E78.5 Hyperlipidemia, unspecified; J86.9 Pyothorax without fistula; C34.32 Malignant neoplasm of lower lobe, left bronchus or lung; J91.0 Malignant pleural effusion; J18.9 Pneumonia, unspecified organism; D63.0 Anemia in neoplastic disease; J98.11 Atelectasis; K76.0 Fatty (change of) liver, not elsewhere classified; Y83.8 Other surgical procedures as the cause of abnormal reaction of the patient, or of later complication, without mention of misadventure at the time of the procedure
CPT/HCPCS: 36415; 71046-TC-FY; 71250-TC; 80048; 80053; 81003; 82272; 82550; 82607; 82728; 82747; 82803; 83540; 83550; 83605; 83735; 84100; 84238; 84439; 84443; 84484; 85014; 85025; 85027; 85610; 85730; 86850; 86900; 86901; 87040; 87070; 87086; 87186; 87205; 93005; 93010; 97116-GP; 97162-GP; 99285-25; G0008; G0480; J0131; Q2036; U0003

== ENCOUNTER 2020-09-04 07:36 | Day surgery (SDC) | payer OTHER ==
[2020-09-04] MEDS ORDERED: SODIUM CHLORIDE 1,000 ML IV ONE (10:00)
[2020-09-04] MEDS ORDERED: ONDANSETRON 4 MG/2 ML VIAL IVPB ONE (13:00)
[2020-09-04 13:28] LABS: HEMATOCRIT 25.4 % (32.4-45.2); HEMOGLOBIN 8.1 GM/dL (10.7-15.3); MCH 25.5 pg (25.7-33.7); MCHC 31.8 g/dl (32.0-36.0); MEAN CELL VOLUME 80.4 fl (80-96); MEAN PLT VOLUME 10.6 fl (7.5-11.1); PLATELET COUNT 234 K/MM3 (134-434); RBC 3.16 M/mm3 (3.60-5.2); RDW 16.1 % (11.6-15.6); WHITE BLOOD COUNT 8.5 K/mm3 (4.0-10.0)
[2020-09-04 14:09] LABS: ALBUMIN 2.2 g/dl (3.4-5.0); BILIRUBIN,TOTAL 0.5 mg/dL (0.2-1); CALCIUM 8.2 mg/dL (8.5-10.1); CREATININE 2.7 mg/dL (0.55-1.3); MAGNESIUM 2.5 mg/dL (1.8-2.4); POTASSIUM 5.3 mmol/L (3.5-5.1)
[2020-09-04 16:53] VITALS: TEMP 98.3
[2020-09-04] MEDS ORDERED: SODIUM CHLORIDE 1,000 ML IV STA (17:20)
[2020-09-04 18:15] VITALS: BP 96/37; PULSE 93
== END 2020-09-04 18:15 | disposition home or self-care (01) ==
LOC: JONCNONCHE 07:36
PROVIDERS: ATTEND Internal Medicine Hematology & Oncology
PROC: 3E0337Z Introduction of Electrolytic and Water Balance Substance into Peripheral Vein, Percutaneous Approach (ICD-10-PCS; principal; 2020-09-04)
DX: C34.32 Malignant neoplasm of lower lobe, left bronchus or lung (principal); Z76.89 Persons encountering health services in other specified circumstances
CPT/HCPCS: 36415; 80053; 83735; 85027; 96360; 96361

== ENCOUNTER 2020-09-05 06:50 | Inpatient (IN) | payer OTHER ==
[2020-09-05 09:46] LABS: BASO % 0.2 % (0-2.0); EOS % 0.7 % (0-4.5); HEMATOCRIT 24.3 % (32.4-45.2); HEMOGLOBIN 7.9 GM/dL (10.7-15.3); LYMPH % 6.9 % (8-40); MCH 26.3 pg (25.7-33.7); MCHC 32.4 g/dl (32.0-36.0); MEAN PLT VOLUME 10.2 fl (7.5-11.1); MONO % 5.3 % (3.8-10.2); NEUT % 86.9 % (42.8-82.8); PLATELET COUNT 245 K/MM3 (134-434); RDW 15.8 % (11.6-15.6); WHITE BLOOD COUNT 8.1 K/mm3 (4.0-10.0)
[2020-09-05] MEDS ORDERED: SODIUM CHLORIDE 1,000 ML IV ONE (10:00)
[2020-09-05 10:28] LABS: ALBUMIN 2.1 g/dl (3.4-5.0); BILIRUBIN,TOTAL 0.3 mg/dL (0.2-1); BLOOD UREA NITROGEN 49.6 mg/dL (7-18); CREATININE 2.6 mg/dL (0.55-1.3); MAGNESIUM 2.2 mg/dL (1.8-2.4); POTASSIUM 4.4 mmol/L (3.5-5.1); TOT PROT 5.7 g/dl (6.4-8.2)
--- NOTE | 2020-09-05 13:49 | CON.NEP ---
Consult Consult Specialty:: Nephrology Referred by:: Dr. Smallwood Reason for Consultation:: Acute kidney injury - History of Present Illness Chief Complaint: Abnormal renal function History of Present Illness: This is a 59 year old woman with history of lung cancer on chemotherapy, hypertension, hyperlipidemia who presents with abnormal renal function. Seen and examined in the infusion suite. Mrs. Gibbs was recently admitted with a malignant pleural effusion and treated for sepsis. She was discharged on oral Augmentin and clindamycin. She offers no acute complaints. She denies any NSAID use. She denies any flank pain, dysuria, frequency or urgency. No N/V but did have diarrhea last night. No confusion or lethargy. No skin rash. - History Source History Provided By: Patient Limitations to Obtaining History: No Limitations - Past Medical History Cardio/Vascular: Yes: HTN, Hyperlipdemia Pulmonary: Yes: Other (lung cancer/malignant effusion/s/p tube drainage) Gastrointestinal: Yes: GERD - Alcohol/Substance Use Hx Alcohol Use: No History of Substance Use: reports: None - Smoking History Smoking history: Never smoked Have you smoked in the past 12 months: No Home Medications - Allergies Allergies/Adverse Reactions: Allergies Allergy/AdvReac Type Severity Reaction Status Date / Time No Known Allergies Allergy Verified 08/17/20 17:59 - Home Medications Home Medications: Ambulatory Orders Atorvastatin Ca [Lipitor] 10 mg PO HS tablet 04/09/14 Cholecalciferol (Vitamin D3) [Vitamin D3 -] 2,000 units PO DAILY 06/14/17 Aspirin 81 mg PO DAILY 02/21/18 Metoprolol Succinate 50 mg PO DAILY 06/10/20 Acetaminophen [Tylenol] 500 mg PO QID PRN 08/17/20 Ascorbate Calcium [Vitamin C] 500 mg PO BID 08/17/20 Omeprazole 20 mg PO DAILY 08/17/20 Family Medical History Family History: Unremarkable Review of Systems - Review of Systems Constitutional: reports: No Symptoms Eyes: reports: No Symptoms HENT: reports: No Symptoms Neck: reports: No Symptoms Cardiovascular: reports: No Symptoms Respiratory: reports: No Symptoms Gastrointestinal: reports: No Symptoms Genitourinary: reports: No Symptoms Musculoskeletal: reports: No Symptoms Neurological: reports: No Symptoms Endocrine: reports: No Symptoms Nephrology Consult - Height Height: 4 ft 10 in - Weight Weight: 39.009 kg - BMI Body Mass Index (BMI): 17.9 - Lab Results CBC,BMP: CBC, BMP 09/05/20 09:20 09/05/20 09:20 Anion Gap: Anion Gap Anion Gap 10 MMOL/L (8-16) 09/05/20 09:20 - Physical Examination Constitutional: Yes: No Distress, Calm HENT: Yes: Atraumatic Neck: Yes: Supple Cardiovascular: Yes: Regular Rate and Rhythm Respiratory: Yes: Regular, Diminished. No: Rales Gastrointestinal: Yes: Soft. No: Tenderness Renal/: No: Bladder Distention, CVA Tenderness - Left, CVA Tenderness - Right Extremities: No: Cold, Cool, Cyanosis Edema: No Neurological: Yes: Alert, Oriented Assessment/Plan 59 year old woman with history of lung cancer on chemotherapy, hypertension, hyperlipidemia who presents with abnormal renal function. 1. Acute kidney injury 2. Lung cancer 3. Sepsis/Pneumonia 4. Hypertension 5. Hyperlipidemia Differential for acute kidney injury: AIN (antibiotics) vs. ATN vs. Obstruction vs. GN (less likely) Check urine studies and renal US. Hold antibiotics for now. Continue NS at 84cc per hour Check CXR to access for any effusions Check KLAUDIA, ANCA, CH50, SPEP, CK, LDH and Haptoglobin, Uric acid levels. Trend renal function daily Case discussed with Dr. Smallwood. Thank you Will follow Darryl Vazquez DO
[2020-09-05 15:22] LABS: LDH 233 U/L (84-246)
--- NOTE | 2020-09-05 15:33 | PN.HO ---
Progress Note (short form) - Note Progress Note: 59y F with EGFR positive Lung Adeno c/b loculated pleural effusion needing pleurex presents for IV hydration as patient has been having persistent YOUSUF as outpatient. Initially thought to be due to dehydration but with minimal improvement with IV hydration. Appreciate nephrology input. Request admission to hospitalist team. We will continue to follow daily. Continue to hold home medication Tagrisso
--- NOTE | 2020-09-05 15:39 | HP ---
CHIEF COMPLAINT: dehydration PCP: Dr. Kylie Griggs HISTORY OF PRESENT ILLNESS: Patient is a 59 year old female with history of hypertension, hyperlipidemia, gastro-esophageal reflux, metastatic non small cell lung cancer, presented today to Oncology Suite for IV fluid hydration. Noted recent YOUSUF on outpatient labs, since hospital discharge. Labs drawn today revealed BUN 49 / Cr 2.6 (baseline 0.9) that prompted admission, per Oncology request. Patient was recently hospitalized for sepsis secondary to empyema. She has history of loculated pleural effusion s/p chest tube during last admission; she was discharged home one week ago. She endorses completing course of Augmentin, Clindamycin. Currently, patient does endorse episodes diarrhea that have been non bloody, and without melena. She denies subjective fevers, chills, shortness of breath, chest pain, palpitaitons, abdominal pain, nausea, vomiting. Denies recent NSAID use. Recent Travel: denies PAST MEDICAL HISTORY: hypertension, hyperlipidemia, gastro-esophageal reflux, metastatic non small cell lung cancer PAST SURGICAL HISTORY: tonsilectomy Social History: Smoking: denies smoking cigarettes Alcohol: denies alcohol consumption Drugs:denies illicit drug use Allergies No Known Allergies Allergy (Verified 08/17/20 17:59) HOME MEDICATIONS: Home Medications Medication Instructions Recorded Atorvastatin Ca [Lipitor] 10 mg PO HS tablet 04/09/14 Cholecalciferol (Vitamin D3) 2,000 units PO DAILY 06/14/17 [Vitamin D3 -] Aspirin 81 mg PO DAILY 02/21/18 Metoprolol Succinate 50 mg PO DAILY 06/10/20 Acetaminophen [Tylenol] 500 mg PO QID PRN 08/17/20 Ascorbate Calcium [Vitamin C] 500 mg PO BID 08/17/20 Omeprazole 20 mg PO DAILY 08/17/20 REVIEW OF SYSTEMS CONSTITUTIONAL: Absent: fever, chills, diaphoresis, generalized weakness, malaise, loss of appetite, weight change HEENT: Absent: rhinorrhea, nasal congestion, throat pain, throat swelling, difficulty swallowing, mouth swelling, ear pain, eye pain, visual changes CARDIOVASCULAR: Absent: chest pain, syncope, palpitations, irregular heart rate, lightheadedness, peripheral edema RESPIRATORY: Absent: cough, shortness of breath, dyspnea with exertion, orthopnea, wheezing, stridor, hemoptysis GASTROINTESTINAL: Admits: diarrhea. Absent: abdominal pain, abdominal distension, nausea, vomiting, constipation, melena, hematochezia GENITOURINARY: Absent: dysuria, frequency, urgency, hesitancy, hematuria, flank pain, genital pain MUSCULOSKELETAL: Absent: myalgia, arthralgia, joint swelling, back pain, neck pain SKIN: Absent: rash, itching, pallor HEMATOLOGIC/IMMUNOLOGIC: Absent: easy bleeding, easy bruising, lymphadenopathy, frequent infections ENDOCRINE: Absent: unexplained weight gain, unexplained weight loss, heat intolerance, cold intolerance NEUROLOGIC: Absent: headache, focal weakness or paresthesias, dizziness, unsteady gait, seizure, mental status changes, bladder or bowel incontinence PSYCHIATRIC: Absent: anxiety, depression, suicidal or homicidal ideation, hallucinations. PHYSICAL EXAMINATION Vital Signs - 24 hr 09/05/20 13:50 Temperature 97.6 F Pulse Rate 84 Respiratory 18 Rate Blood Pressure 94/45 L O2 Sat by Pulse 100 Oximetry (%) GENERAL: Awake, alert, and fully oriented, in no acute distress. HEAD: Normal with no signs of trauma. EYES: Pupils equal, round and reactive to light, extraocular movements intact, sclera anicteric, conjunctiva clear. No lid lag. EARS, NOSE, THROAT: Ears normal, nares patent, oropharynx clear without exudates. Moist mucous membranes. NECK: Normal range of motion, supple without lymphadenopathy, JVD, or masses. LUNGS: Breath sounds equal, clear to auscultation bilaterally. No wheezes, and no crackles. No accessory muscle use. HEART: Regular rate and rhythm, normal S1 and S2 without murmur, rub or gallop. ABDOMEN: Soft, nontender, not distended, normoactive bowel sounds, no guarding, no rebound, no masses. No hepatomegaly or splenomegaly. MUSCULOSKELETAL: Normal range of motion at all joints. No bony deformities or tenderness. No CVA tenderness. UPPER EXTREMITIES: 2+ pulses, warm, well-perfused. No cyanosis. No clubbing. No peripheral edema. LOWER EXTREMITIES: 2+ pulses, warm, well-perfused. No calf tenderness. No peripheral edema. NEUROLOGICAL: Cranial nerves II-XII intact. Normal speech. Normal gait. PSYCHIATRIC: Cooperative. Good eye contact. Appropriate mood and affect. SKIN: Warm, dry. Left back (site of prior chest tube bandaged clean, dry, negative erythema or tenderness to palpation) Laboratory Results - last 24 hr 09/05/20 09/05/20 09/05/20 09:20 09:20 09:20 WBC 8.1 RBC 3.00 L Hgb 7.9 L Hct 24.3 L MCV 81.0 MCH 26.3 MCHC 32.4 RDW 15.8 H Plt Count 245 MPV 10.2 Absolute Neuts (auto) 7.1 Neutrophils % 86.9 H Lymphocytes % 6.9 L Monocytes % 5.3 Eosinophils % 0.7 D Basophils % 0.2 Nucleated RBC % 0 Sodium 144 Potassium 4.4 Chloride 113 H Carbon Dioxide 22 Anion Gap 10 BUN 49.6 H Creatinine 2.6 H Est GFR (CKD-EPI)AfAm 22.34 Est GFR (CKD-EPI)NonAf 19.27 Random Glucose 96 Calcium 8.0 L Magnesium 2.2 Total Bilirubin 0.3 AST 21 ALT 14 Alkaline Phosphatase 95 LD Total Creatine Kinase Total Protein 5.7 L Albumin 2.1 L Blood Type A POSITIVE Antibody Screen Negative 09/05/20 14:22 WBC RBC Hgb Hct MCV MCH MCHC RDW Plt Count MPV Absolute Neuts (auto) Neutrophils % Lymphocytes % Monocytes % Eosinophils % Basophils % Nucleated RBC % Sodium Potassium Chloride Carbon Dioxide Anion Gap BUN Creatinine Est GFR (CKD-EPI)AfAm Est GFR (CKD-EPI)NonAf Random Glucose Calcium Magnesium Total Bilirubin AST ALT Alkaline Phosphatase LD Total 233 Creatine Kinase 115 Total Protein Albumin Blood Type Antibody Screen ASSESSMENT/PLAN: Patient is a 59 year old female with history of hypertension, hyperlipidemia, gastro-esophageal reflux, non small cell lung cancer, admitted for acute kidney injury. Acute kidney injury -Suspect pre renal etiology given recent diarrhea. Concern for intrinsic renal pathology, secondary to recent antibiotics vs. pre -renal given poor intake and diarrhea. -Nephrology recommendations (Dr. Vazquez) appreciated. -Follow urine studies -Obtain renal/ bladder ultrasound -Follow chest radiograph -Follow serologies -Gentle hydration with IV normal saline at 84mL/ hour -Follow BMP Non small cell lung cancer -Followed by Dr. Guallpa -Thoracic surgery consult for evaluation of malignant effusion History of hypertension -Holding home Metoprolol given borderline blood pressures (90s/ 50s). However, this appears to be close to her baseline. -Monitor vital signs closely History of hyperlipidemia -Continue home Statin History of gastro-esophageal reflux -Continue home Pantoprazole FEN -IV normal saline at 84mL/ hour -Follow BMP -Regular diet Prophylaxis -Heparin 5000units subq TID Disposition -Admit to medical - surgical floor. Family Medical History Family History: As Documented Visit type - Emergency Visit Emergency Visit: Yes ED Registration Date: 09/05/20 Care time: The patient presented to the Emergency Department on the above date and was hospitalized for further evaluation of their emergent condition. - New Patient This patient is new to me today: Yes Date on this admission: 09/05/20 - Critical Care Critical Care patient: No ATTENDING PHYSICIAN STATEMENT I saw and evaluated the patient. I reviewed the resident's note and discussed the case with the resident. I agree with the resident's findings and plan as documented. SUBJECTIVE: OBJECTIVE: ASSESSMENT AND PLAN:
[2020-09-05] MEDS: SODIUM CHLORIDE 1,000 ML IV SCH (15:58)
[2020-09-05] MEDS ORDERED: ACETAMINOPHEN 500 MG TABLET (FP) PO PRN (16:04)
[2020-09-05 17:50] VITALS: BMI 18.8
[2020-09-05] MEDS: ATORVASTATIN CA 10 MG TABLET (FP) PO SCH (21:08)
[2020-09-05] MEDS: HEPARIN NA (PORCINE) 5,000 UNITS/ML 1ML VIAL SQ SCH (21:08)
[2020-09-05] MEDS ORDERED: HEPARIN NA (PORCINE) 5,000 UNITS/ML 1ML VIAL SQ SCH (22:00)
[2020-09-06 06:26] LABS: EPI CELLS 15 /uL (0-25.1); HYALINE CASTS 3 /uL (0-3.1); URINE APPEARANCE CLOUDY; URINE BACTERIA 6 /uL (0-1359); URINE BILIRUBIN NEGATIVE (NEGATIVE); URINE COLOR YELLOW; URINE GLUCOSE (UA) NEGATIVE (NEGATIVE); URINE KETONE NEGATIVE (NEGATIVE); URINE LEUK ESTERASE NEGATIVE (NEGATIVE); URINE NITRITE NEGATIVE (NEGATIVE); URINE PROTEIN TRACE (NEGATIVE); URINE UROBILINOGEN 0.2 mg/dL (0.2-1.0); URINE WBC 24 /uL (0-25.8)
[2020-09-06 08:10] LABS: BASO % 0.4 % (0-2.0); EOS % 1.4 % (0-4.5); HEMATOCRIT 24.3 % (32.4-45.2); HEMOGLOBIN 7.7 GM/dL (10.7-15.3); LYMPH % 12.8 % (8-40); MCH 25.7 pg (25.7-33.7); MCHC 31.8 g/dl (32.0-36.0); MEAN PLT VOLUME 10.5 fl (7.5-11.1); MONO % 7.2 % (3.8-10.2); NEUT % 78.2 % (42.8-82.8); PLATELET COUNT 228 K/MM3 (134-434); RDW 15.7 % (11.6-15.6); WHITE BLOOD COUNT 6.3 K/mm3 (4.0-10.0)
[2020-09-06 08:25] LABS: ALBUMIN 1.7 g/dl (3.4-5.0); BILIRUBIN,TOTAL 0.6 mg/dL (0.2-1); BLOOD UREA NITROGEN 39.3 mg/dL (7-18); CALCIUM 7.8 mg/dL (8.5-10.1); CREATININE 2.2 mg/dL (0.55-1.3); MAGNESIUM 1.9 mg/dL (1.8-2.4); PHOSPHOROUS 3.2 mg/dL (2.5-4.9); POTASSIUM 4.4 mmol/L (3.5-5.1); TOT PROT 4.8 g/dl (6.4-8.2)
[2020-09-06] MEDS ORDERED: PANTOPRAZOLE 20 MG TABLET PO SCH (10:00)
--- NOTE | 2020-09-06 10:45 | PN ---
Physical Exam: SUBJECTIVE: Patient seen and examined this AM. No new complaints. OBJECTIVE: Vital Signs Period Temp Pulse Resp BP Sys/Gonzalez Pulse Ox Last 24 Hr 97.6 F-98.8 F 84-92 16-18 94-102/45-55 100-100 GENERAL: A&Ox3, NAD HEAD: NCAT EYES: PERRL, EOMI ENT: MMM NECK: Supple LUNGS: DIminished breath sounds at the bases HEART: Regular rate and rhythm, S1, S2 without murmur ABDOMEN: Soft, nontender, nondistended, + bowel sounds, no guarding EXTREMITIES: no edema NEUROLOGICAL: Cranial nerves II through XII grossly intact. SKIN: Warm, dry. Left sided Chest wound with minimal drainaged, Dressing C/D/I without surrounding erythem Laboratory Last Values WBC 6.3 K/mm3 (4.0-10.0) 09/06/20 06:45 RBC 3.00 M/mm3 (3.60-5.2) L 09/06/20 06:45 Hgb 7.7 GM/dL (10.7-15.3) L 09/06/20 06:45 Hct 24.3 % (32.4-45.2) L 09/06/20 06:45 MCV 81.0 fl (80-96) 09/06/20 06:45 MCH 25.7 pg (25.7-33.7) 09/06/20 06:45 MCHC 31.8 g/dl (32.0-36.0) L 09/06/20 06:45 RDW 15.7 % (11.6-15.6) H 09/06/20 06:45 Plt Count 228 K/MM3 (134-434) 09/06/20 06:45 MPV 10.5 fl (7.5-11.1) 09/06/20 06:45 Absolute Neuts (auto) 4.9 K/mm3 (1.5-8.0) 09/06/20 06:45 Neutrophils % 78.2 % (42.8-82.8) 09/06/20 06:45 Lymphocytes % 12.8 % (8-40) D 09/06/20 06:45 Monocytes % 7.2 % (3.8-10.2) 09/06/20 06:45 Eosinophils % 1.4 % (0-4.5) D 09/06/20 06:45 Basophils % 0.4 % (0-2.0) 09/06/20 06:45 Nucleated RBC % 0 % (0-0) 09/06/20 06:45 Haptoglobin 550 mg/dL (33-346) H 09/05/20 14:22 Sodium 144 mmol/L (136-145) 09/06/20 06:45 Potassium 4.4 mmol/L (3.5-5.1) 09/06/20 06:45 Chloride 116 mmol/L (98-107) H 09/06/20 06:45 Carbon Dioxide 21 mmol/L (21-32) 09/06/20 06:45 Anion Gap 7 MMOL/L (8-16) L 09/06/20 06:45 BUN 39.3 mg/dL (7-18) H 09/06/20 06:45 Creatinine 2.2 mg/dL (0.55-1.3) H 09/06/20 06:45 Est GFR (CKD-EPI)AfAm 27.34 09/06/20 06:45 Est GFR (CKD-EPI)NonAf 23.59 09/06/20 06:45 Random Glucose 74 mg/dL (74-106) 09/06/20 06:45 Calcium 7.8 mg/dL (8.5-10.1) L 09/06/20 06:45 Phosphorus 3.2 mg/dL (2.5-4.9) 09/06/20 06:45 Magnesium 1.9 mg/dL (1.8-2.4) 09/06/20 06:45 Total Bilirubin 0.6 mg/dL (0.2-1) 09/06/20 06:45 AST 16 U/L (15-37) 09/06/20 06:45 ALT 10 U/L (13-61) L 09/06/20 06:45 Alkaline Phosphatase 74 U/L (45-117) 09/06/20 06:45 LD Total 233 U/L (84-246) 09/05/20 14:22 Creatine Kinase 115 U/L (26-192) 09/05/20 14:22 Total Protein 4.8 g/dl (6.4-8.2) L 09/06/20 06:45 Albumin 1.7 g/dl (3.4-5.0) L 09/06/20 06:45 Urine Color Yellow 09/05/20 19:15 Urine Appearance Cloudy 09/05/20 19:15 Urine pH 5.0 (5.0-8.0) 09/05/20 19:15 Ur Specific [place] 1.013 (1.010-1.035) 09/05/20 19:15 Urine Protein Trace (NEGATIVE) 09/05/20 19:15 Urine Glucose (UA) Negative (NEGATIVE) 09/05/20 19:15 Urine Ketones Negative (NEGATIVE) 09/05/20 19:15 Urine Blood Trace (NEGATIVE) 09/05/20 19:15 Urine Nitrite Negative (NEGATIVE) 09/05/20 19:15 Urine Bilirubin Negative (NEGATIVE) 09/05/20 19:15 Urine Urobilinogen 0.2 mg/dL (0.2-1.0) 09/05/20 19:15 Ur Leukocyte Esterase Negative (NEGATIVE) 09/05/20 19:15 Urine WBC (Auto) 24 /uL (0-25.8) 09/05/20 19:15 Urine Casts (Auto) 3 /uL (0-3.1) 09/05/20 19:15 U Epithel Cells (Auto) 15 /uL (0-25.1) 09/05/20 19:15 Urine Bacteria (Auto) 6 /uL (0-1359) 09/05/20 19:15 Ur Random Creatinine 77.0 mg/dL (30-150) 09/05/20 19:15 U Random Total Protein 84.3 mg/dL (0-11.9) H 09/05/20 19:15 Ur Random Sodium 99 MMOL/L (40-220) 09/05/20 19:15 Ur Random Urea Nitrogn 485 mg/dL (350-1000) 09/05/20 19:15 Random Vancomycin 6.4 ug/ml (5-26) 09/05/20 20:49 Syphilis Serology Reactive (NONREACTIVE) A* 09/05/20 20:49 RPR Titer Reactive 1:1 (NONREACTIVE) H 09/05/20 20:49 Blood Type A POSITIVE 09/05/20 09:20 Antibody Screen Negative 09/05/20:20 ASSESSMENT/PLAN: 59 y/o F PMHx NSCLC (on Tagrisso) complicated by malignant Rt pleural effusion, HTN, HLD, GERD. Recently discharged from [facility] for Sepsis requiring chest tube placement having completed a course of ABx, presented for IV Hydration and admitted for persistent YOUSUF despite hydration. #YOUSUF -Likely prerenal given recent diarrheal illness however concerning for AIN in the setting of ABx use, ATN, Obstruction -Nephrology evaluation appreciated -Follow urine studies, renal/bladder US, BMP, KLAUDIA, ANCA, CH50, SPEP, CK, LDH, Haptoglobin, Uric acid level -Continue IV Hydration #NSCLC -Hold Osimertinib -DVT PPx #Anemia -Possibly Anemia of chonic inflamation vs Bone marrow suppression from Osimertinib use -Transfuse to keep Hgb > 7.0 Visit type - Emergency Visit Emergency Visit: Yes ED Registration Date: 09/05/20 Care time: The patient presented to the Emergency Department on the above date and was hospitalized for further evaluation of their emergent condition. - New Patient This patient is new to me today: Yes Date on this admission: 09/09/20 - Critical Care Critical Care patient: No - Discharge Referral Referred to [facility] Med P.C.: No ATTENDING PHYSICIAN STATEMENT I saw and evaluated the patient. I reviewed the resident's note and discussed the case with the resident. I agree with the resident's findings and plan as documented. SUBJECTIVE: OBJECTIVE: ASSESSMENT AND PLAN:
[2020-09-06] MEDS: HEPARIN NA (PORCINE) 5,000 UNITS/ML 1ML VIAL SQ SCH ×2 (11:21→21:56)
[2020-09-06] MEDS: ASPIRIN 81 MG CHEWABLE TABLETS PO SCH (11:21)
--- NOTE | 2020-09-06 11:59 | CON.ID ---
Consult Consult Specialty:: infectious diseases Referred by:: hospitalist Reason for Consultation:: draiange from the left side wound - History of Present Illness Chief Complaint: draiange from the wound History of Present Illness: 59 year old female with history of hypertension, hyperlipidemia, gastro- esophageal reflux, metastatic non small cell lung cancer, presented today to Oncology Suite for IV fluid hydration. Noted recent YOUSUF on outpatient labs, since hospital discharge. Labs drawn today revealed BUN 49 / Cr 2.6 (baseline 0.9) that prompted admission, per Oncology request. Patient was recently hospitalized for sepsis secondary to empyema. She has history of loculated pleural effusion s/p chest tube during last admission; she was discharged home one week ago. She endorses completing course of Augmentin, Clindamycin. Currently, patient does endorse episodes diarrhea that have been non bloody, and without melena. She denies subjective fevers, chills, shortness of breath, chest pain, palpitaitons, abdominal pain, nausea, vomiting. Denies recent NSAID use. 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 denies any complaints - History Source History Provided By: Patient Limitations to Obtaining History: No Limitations - Past Medical History Cardio/Vascular: Yes: HTN, Hyperlipdemia Pulmonary: Yes: Other (lung cancer/malignant effusion/s/p tube drainage) Gastrointestinal: Yes: GERD - Alcohol/Substance Use Hx Alcohol Use: No History of Substance Use: reports: None - Smoking History Smoking history: Never smoked Have you smoked in the past 12 months: No Home Medications - Allergies Allergies/Adverse Reactions: Allergies Allergy/AdvReac Type Severity Reaction Status Date / Time No Known Allergies Allergy Verified 08/17/20 17:59 - Home Medications Home Medications: Ambulatory Orders RX: Atorvastatin Ca [Lipitor] 10 mg PO HS tablet 04/09/14 RX: Cholecalciferol (Vitamin D3) [Vitamin D3 -] 2,000 units PO DAILY 06/14/17 RX: Aspirin 81 mg PO DAILY 02/21/18 RX: Metoprolol Succinate 50 mg PO DAILY 06/10/20 RX: Acetaminophen [Tylenol] 500 mg PO QID PRN 08/17/20 RX: Ascorbate Calcium [Vitamin C] 500 mg PO BID 08/17/20 RX: Omeprazole 20 mg PO DAILY 08/17/20 Prochlorperazine Maleate [Compazine] 10 mg PO 10/09/20 Family Medical History Family History: Unremarkable Review of Systems - Review of Systems Constitutional: reports: No Symptoms Eyes: reports: No Symptoms HENT: reports: No Symptoms Neck: reports: No Symptoms Cardiovascular: reports: No Symptoms Respiratory: reports: No Symptoms Gastrointestinal: reports: No Symptoms Genitourinary: reports: No Symptoms Musculoskeletal: reports: No Symptoms Integumentary: reports: No Symptoms Neurological: reports: No Symptoms Endocrine: reports: No Symptoms Hematology/Lymphatic: reports: No Symptoms Psychiatric: reports: No Symptoms Physical Exam Vital Signs: Vital Signs Temperature 98.8 F 09/06/20 09:10 Pulse Rate 92 H 09/06/20 09:10 Respiratory Rate 18 09/06/20 09:10 Blood Pressure 99/46 L 09/06/20 09:10 O2 Sat by Pulse Oximetry (%) 100 09/06/20 09:10 Constitutional: Yes: Well Nourished, Calm Eyes: Yes: Conjunctiva Clear HENT: Yes: Atraumatic, Normocephalic Neck: Yes: Supple, Trachea Midline Cardiovascular: Yes: Regular Rate and Rhythm Respiratory: Yes: Poor Air Entry (left side) Gastrointestinal: Yes: Normal Bowel Sounds, Soft Musculoskeletal: Yes: WNL Extremities: Yes: WNL Wound/Incision: Yes: Draining Neurological: Yes: Alert, Oriented Labs: CBC, BMP 09/06/20 06:45 09/06/20 06:45 Imaging - Results Chest X-ray: Report Reviewed, Image Reviewed Assessment/Plan patient has matthew pus coming out of the wound site i have ordeed a wound cx ct of the chest being done patient is probably going to need drainage rest as per the team
[2020-09-06] MEDS ORDERED: VANCOMYCIN HCL 1,250 MG in DEXTROSE 5%-WATER - 250 ML IVPB ONE (12:09)
[2020-09-06] MEDS ORDERED: PIPERACILLIN/TAZOB 2.25 GM 2.25 GM in DEXTROSE 5%-WATER - 50 ML IVPB SCH (12:15)
[2020-09-06] MEDS ORDERED: DEXTROSE 5%-WATER - 50 ML IVPB ONE (12:54)
[2020-09-06] MEDS ORDERED: PIPERACILLIN/TAZOBACTAM 2.25 GM VIAL IVPB ONE (12:54)
--- NOTE | 2020-09-06 14:09 | CON.PULM ---
Consult Consult Specialty:: PULMONARY Referred by:: PATRICIA Reason for Consultation:: LEFT PLEURAL FLUID - History of Present Illness Chief Complaint: SENT BY ONCO 2/ YOUSUF History of Present Illness: 59 year old female with history of hypertension, hyperlipidemia, gastro- esophageal reflux, metastatic non small cell lung cancer, presented to [facility]cology [facility] for IV fluid hydration. Noted recent YOUSUF on outpatient labs, since recent hospital discharge. Cr 2.6 (baseline 0.9) that prompted admission, per Oncology request. Patient was recently hospitalized for sepsis secondary to empyema. She has history of loculated pleural effusion s/p chest tube during last admission. She completed course of Augmentin, Clindamycin and had episodes diarrhea that have been non bloody, and without melena. 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 Patient is mentally challenged and lives at home with parents. Exposure to syphilis is yet to be determined. - History Source History Provided By: Patient, Medical Record Limitations to Obtaining History: Clinical Condition - Past Medical History RELIABILITY MANAGER: Yes: Other (mildly mentally challenged) Cardio/Vascular: Yes: HTN, Hyperlipdemia Pulmonary: Yes: Other (lung cancer/malignant effusion/s/p tube drainage) Gastrointestinal: Yes: GERD - Alcohol/Substance Use Hx Alcohol Use: No History of Substance Use: reports: None - Smoking History Smoking history: Never smoked Have you smoked in the past 12 months: No Home Medications - Allergies Allergies/Adverse Reactions: Allergies Allergy/AdvReac Type Severity Reaction Status Date / Time No Known Allergies Allergy Verified 08/17/20 17:59 - Home Medications Home Medications: Ambulatory Orders Atorvastatin Ca [Lipitor] 10 mg PO HS tablet 04/09/14 Cholecalciferol (Vitamin D3) [Vitamin D3 -] 2,000 units PO DAILY 06/14/17 Aspirin 81 mg PO DAILY 02/21/18 Metoprolol Succinate 50 mg PO DAILY 06/10/20 Acetaminophen [Tylenol] 500 mg PO QID PRN 08/17/20 Ascorbate Calcium [Vitamin C] 500 mg PO BID 08/17/20 Omeprazole 20 mg PO DAILY 08/17/20 Prochlorperazine Maleate [Compazine] 10 mg PO 09/06/20 Family Medical History Family History: Unremarkable Review of Systems - Review of Systems Constitutional: denies: Fever Eyes: denies: Blurred Vision HENT: denies: Difficult Swallowing, Throat Pain Cardiovascular: denies: Chest Pain Respiratory: denies: Cough Gastrointestinal: denies: Abdominal Pain Genitourinary: denies: Burning Physical Exam Vital Sings: Vital Signs Temperature 97.8 F 09/06/20 13:58 Pulse Rate 83 09/06/20 13:58 Respiratory Rate 20 09/06/20 13:58 Blood Pressure 110/66 09/06/20 13:58 O2 Sat by Pulse Oximetry (%) 98 09/06/20 13:58 Constitutional: Yes: Calm Eyes: Yes: EOM Intact HENT: Yes: Normocephalic Neck: Yes: Trachea Midline Cardiovascular: Yes: Regular Rate and Rhythm Respiratory: Yes: Diminished (left base up 1/2), Dullness, Other (left base up 1/2 lung field) Gastrointestinal: Yes: Normal Bowel Sounds Edema: No Labs: CBC, BMP 09/06/20 06:45 09/06/20 06:45 Imaging - Results Chest X-ray: Report Reviewed, Image Reviewed Problem List - Problems (1) Lung cancer Code(s): C34.90 - MALIGNANT NEOPLASM OF UNSP PART OF UNSP BRONCHUS OR LUNG Qualifiers: Laterality: unspecified laterality Lung location: unspecified part of lung Qualified Code(s): C34.90 - Malignant neoplasm of unspecified part of unspecified bronchus or lung (2) Malignant pleural effusion Code(s): J91.0 - MALIGNANT PLEURAL EFFUSION (3) Trapped lung Code(s): J98.19 - OTHER PULMONARY COLLAPSE (4) Anxiety Code(s): F41.9 - ANXIETY DISORDER, UNSPECIFIED (5) Soft tissue infection Code(s): L08.9 - LOCAL INFECTION OF THE SKIN AND SUBCUTANEOUS TISSUE, UNSP Assessment/Plan EMPYEMA LEFT PLEURAL SPACE S/P DRAINAGE NOW WITH CONTINUED DENSITY CT CHEST PENDING MAY NEED T-SURG TO EVAL FOR DECORTICATION IV HYDRATION/MONITOR CR ETIOLOGY OF SYPHILIS ?/PATIENT IS MENTALLY CHALLENGED AND LIVES HOME WITH PARENTS ID FOLLOW UP NOTED COVID PENDING Roberto MACE MD
--- NOTE | 2020-09-06 15:13 | PN ---
Physical Exam: SUBJECTIVE: Patient seen and examined, states she is sad since she is back in hospital. Endorses she was feeling ill from abx and stopped taking them on 09/04. States she was told she was dehydrated as an outpatient and was admitted following non-correction of her Cr with outpatient fluids. Denies F/C, LUCIA, changes in vision, CP, SoB, dyspnea, N/V/D, or changes in bowel/bladder habits. OBJECTIVE: Vital Signs Period Temp Pulse Resp BP Sys/Gonzalez Pulse Ox Last 24 Hr 97.6 F-98.8 F 83-92 16-20 96-110/46-66 98-100 GENERAL: Baseline minimal mental impairment. The patient is awake, alert, and fully oriented, in no acute distress. HEAD: Normal with no signs of trauma. EYES: PERRL, extraocular movements intact, sclera anicteric, conjunctiva clear. No ptosis. ENT: Ears normal, nares patent, oropharynx clear without exudates, moist mucous membranes. NECK: Trachea midline, full range of motion, supple. LUNGS: Breath sounds diminished on left side, clear to auscultation bilaterally, no wheezes, no crackles, no accessory muscle use. HEART: Regular rate and rhythm, S1, S2 without murmur, rub or gallop. CHEST: Purulent drainage from multiple sites at prior pleurex site. Dressings applied. Area is swollen, without erythema, mildy tender to deep palpation ABDOMEN: Soft, nontender, nondistended, normoactive bowel sounds, no guarding EXTREMITIES: 2+ pulses, warm, well-perfused, no edema. NEUROLOGICAL: Normal speech, gait not observed. PSYCH: Normal mood, normal affect. SKIN: Warm, dry, normal turgor, no rashes or lesions except as noted above. Laboratory Results - last 24 hr CBC, BMP 09/06/20 06:45 09/06/20 06:45 Active Medications Generic Name Dose Route Start Last Admin Trade Name Freq PRN Reason Stop Dose Admin Acetaminophen 500 mg 09/05/20 16:04 Tylenol - PO Q6H PRN PAIN LEVEL 1-5 Aspirin 81 mg 09/06/20 10:00 09/06/20 11:21 Asa - PO 81 mg DAILY MELBA Administration Atorvastatin Calcium 10 mg 09/05/20 22:00 09/05/20 21:08 Lipitor - PO 10 mg HS MELBA Administration Bacitracin 1 applic 09/06/20 22:00 Bacitracin - TP BID MELBA Famotidine 10 mg 09/07/20 10:00 Acid Manager Print PO DAILY MELBA Heparin Sodium (Porcine) 5,000 unit 09/05/20 22:00 09/06/20 11:21 Heparin - SQ 5,000 unit BID MELBA Administration Sodium Chloride 1,000 mls @ 83 mls/hr 09/05/20 14:00 09/05/20 15:58 Normal Saline - IV 09/07/20 08:00 83 mls/hr ASDIR MELBA Administration Piperacillin Sod/Tazobactam 50 mls @ 100 mls/hr 09/06/20 12:15 09/06/20 13:02 Sod 2.25 gm/ Dextrose IVPB 100 mls/hr Q8H-IV MELBA Administration Protocol Metoprolol Succinate 50 mg 09/06/20 10:00 Toprol Xl - PO DAILY MELBA ASSESSMENT/PLAN: 59 yo F w/ PMHx of NSCLC w/ EGFR mutation on Tagrisso recently admitted for persistent loculated pleural effusion following pleurex tube removal w/ dc on Clindamycin and Augmentin (ptn reports stopping medication on 09/04) presents from clinic 2/2 creatinine of 2.6 (baseline 0.9) which did not resolve with outpatient IV hydration. Admitted for YOUSUF and likely empyema. ACUTE KIDNEY INJURY: r/o PRE-RENAL vs INTRINSIC 2/2 ABX -Cr. 2.6 --> 2.2 (baseline 0.9) -History of recent Clindamycin and Augmentin use -Initially non-responsive to IV hydration outpatient -Renal US: Both kidneys are echogenic suggestive of chronic medical renal disease. Echogenic foci in both kidneys likely representing nonobstructing stones. Left simple cyst 1.2 x 0.8cm -Bladder US: Partially distended urinary bladder with a volume of 48 cc without wall thickening.. Minimal postvoid urine residue of 6 cc present -UA: Neg LE/Nit; WBC 24; Total protein 84 -Per Nephro: -LD: 233 -CK: 115 -Haptoglobin: 550 (mildly elevated) -FeNa 2.3% (consistent with tubular injury) -Hold antibiotics for now, specifically PCN based antibiotics -Continue NS at 84cc per hour x 24 more hours. -Follow serologies -KLAUDIA -c-ANCA -p-ANCA -Proteinase 3 -Atypical p-ANCA -Myeloperoxidase Ab -Total Complement: >60 LIKELY RECURRENT EMPYEMA IN PTN W/ HISTORY OF MALIGNANT EFFUSION -Afebrile, no WBC -Previous site of pleurex catheter draining matthew purulent fluid. Cultures sent. -CXR: New fluid at the right base with persistent fluid and atelectasis or infiltrate at the left base -FU CT Chest: -FU US Chest: -Per Pulmonary: -Empyema at left pleural space s/p previous drainage w/ continued density -FU CT Chest -FU w/ Thoracic Surgery for possible decortication -Per ID: -Matthew pus from site of wound -FU Wound Cx: -Suggests drainage -c/w bacitracin dressings HISTORY OF SYPHILLIS UNKNOWN IF TREATED -Syphylis Serology Reactive -Titer 1:1 -Hx of intellectual disability -r/o sexual abuse -w/ follow up w patient for further hx ANEMIA r/o CHRONIC DISEASE vs. BONE MARROW SUPPRESSION -Per Heme Onc: -History of NSCLC -Hold Osimertinib -Anemia 2/2 r/o chronic inflammation vs. bone marrow supression -Transfuse to keep Hbg > 7.0 -FOBT Negative HX OF NON SMALL CELL LUNG CANCER W/ EGFR MUTATION -Followed by Dr. Guallpa -Holding Osimertinib per Heme/Onc HISTORY OF HTN -Hold Metoprolol 2/2 soft BP. -Monitor VS -Restart if BP systolic >140 HISTORY OF HYPERLIPIDEMIA -c/w Lipitor 10mg q daily -FU Hepatitis Panel HISTORY OF GERD -c/w Famotidine 10mg FEN -IV normal saline at 84mL/ hour (per nephro) -BMP -Regular diet PPx -DVT: Heparin 5000 TID -GI: Famotidine 10mg qdaily DISPO -Continue to monitor on med/surg Visit type - Emergency Visit Emergency Visit: No - New Patient This patient is new to me today: No - Critical Care Critical Care patient: No - Discharge Referral Referred to [facility] No ATTENDING PHYSICIAN STATEMENT I saw and evaluated the patient. I reviewed the resident's note and discussed the case with the resident. I agree with the resident's findings and plan as documented. SUBJECTIVE: OBJECTIVE: ASSESSMENT AND PLAN:
--- NOTE | 2020-09-06 15:19 | PN ---
Teaching Attending Note Name of Resident: Rosetta Lawrence ATTENDING PHYSICIAN STATEMENT I saw and evaluated the patient. I reviewed the resident's note and discussed the case with the resident. I agree with the resident's findings and plan as documented. : 59F with EGFR metastatic Lung Adeno on Tagrisso with recent admission for loculated pleural effusion requiring chest tube placement c/b sepsis (now resolved) with dc on clinda and augmentin presents from outpt clinic for YOUSUF (cr 2.6, baseline 0.9) which did not resolve with outpatient hydration. Appreciate nephrology input. Creatinine improved today to 2.[address] chest pending to evaluate known effusion. Renal US consistent with chronic dz.
--- NOTE | 2020-09-06 15:36 | PN ---
Teaching Attending Note Name of Resident: Wilfredo Roa ATTENDING PHYSICIAN STATEMENT I saw and evaluated the patient. I reviewed the resident's note and discussed the case with the resident. I agree with the resident's findings and plan as documented. SUBJECTIVE: Patient is feeling nauseas OBJECTIVE: Vital Signs Temperature 97.8 F 09/06/20 13:58 Pulse Rate 83 09/06/20 13:58 Respiratory Rate 20 09/06/20 13:58 Blood Pressure 110/66 09/06/20 13:58 O2 Sat by Pulse Oximetry (%) 98 09/06/20 13:58 pe:PER RESIDENT'S NOTE CBCD WBC 6.3 K/mm3 (4.0-10.0) 09/06/20 06:45 RBC 3.00 M/mm3 (3.60-5.2) L 09/06/20 06:45 Hgb 7.7 GM/dL (10.7-15.3) L 09/06/20 06:45 Hct 24.3 % (32.4-45.2) L 09/06/20 06:45 MCV 81.0 fl (80-96) 09/06/20 06:45 MCHC 31.8 g/dl (32.0-36.0) L 09/06/20 06:45 RDW 15.7 % (11.6-15.6) H 09/06/20 06:45 Plt Count 228 K/MM3 (134-434) 09/06/20 06:45 MPV 10.5 fl (7.5-11.1) 09/06/20 06:45 CMP Sodium 144 mmol/L (136-145) 09/06/20 06:45 Potassium 4.4 mmol/L (3.5-5.1) 09/06/20 06:45 Chloride 116 mmol/L (98-107) H 09/06/20 06:45 Carbon Dioxide 21 mmol/L (21-32) 09/06/20 06:45 Anion Gap 7 MMOL/L (8-16) L 09/06/20 06:45 BUN 39.3 mg/dL (7-18) H 09/06/20 06:45 Creatinine 2.2 mg/dL (0.55-1.3) H 09/06/20 06:45 Random Glucose 74 mg/dL (74-106) 09/06/20 06:45 Calcium 7.8 mg/dL (8.5-10.1) L 09/06/20 06:45 Total Bilirubin 0.6 mg/dL (0.2-1) 09/06/20 06:45 AST 16 U/L (15-37) 09/06/20 06:45 ALT 10 U/L (13-61) L 09/06/20 06:45 Alkaline Phosphatase 74 U/L (45-117) 09/06/20 06:45 Total Protein 4.8 g/dl (6.4-8.2) L 09/06/20 06:45 Albumin 1.7 g/dl (3.4-5.0) L 09/06/20 06:45 CARDIAC ENZYMES Creatine Kinase 115 U/L (26-192) 09/05/20 14:22 Current Medications Generic Name Dose Route Start Last Admin Trade Name Freq PRN Reason Stop Dose Admin Acetaminophen 500 mg 09/05/20 16:04 Tylenol - PO Q6H PRN PAIN LEVEL 1-5 Aspirin 81 mg 09/06/20 10:00 09/06/20 11:21 Asa - PO 81 mg DAILY MELBA Administration Atorvastatin Calcium 10 mg 09/05/20 22:00 09/05/20 21:08 Lipitor - PO 10 mg HS MELBA Administration Bacitracin 1 applic 09/06/20 22:00 Bacitracin - TP BID MELBA Famotidine 10 mg 09/07/20 10:00 Acid Axle Bearing Polisher PO DAILY MELBA Heparin Sodium (Porcine) 5,000 unit 09/05/20 22:00 09/06/20 11:21 Heparin - SQ 5,000 unit BID MELBA Administration Sodium Chloride 1,000 mls @ 83 mls/hr 09/05/20 14:00 09/05/20 15:58 Normal Saline - IV 83 mls/hr ASDIR MELBA Administration Piperacillin Sod/Tazobactam 50 mls @ 100 mls/hr 09/06/20 12:15 09/06/20 13:02 Sod 2.25 gm/ Dextrose IVPB 100 mls/hr Q8H-IV MELBA Administration Protocol Metoprolol Succinate 50 mg 09/06/20 10:00 Toprol Xl - PO DAILY [facility] Home Medications Medication Instructions Recorded Atorvastatin Ca [Lipitor] 10 mg PO HS tablet 04/09/14 Cholecalciferol (Vitamin D3) 2,000 units PO DAILY 06/14/17 [Vitamin D3 -] Aspirin 81 mg PO DAILY 02/21/18 Metoprolol Succinate 50 mg PO DAILY 06/10/20 Acetaminophen [Tylenol] 500 mg PO QID PRN 08/17/20 Ascorbate Calcium [Vitamin C] 500 mg PO BID 08/17/20 Omeprazole 20 mg PO DAILY 08/17/20 Prochlorperazine Maleate 10 mg PO 09/06/20 [Compazine] Microbiology 09/06/20 12:10 Chest Gram Stain - Final 09/06/20 12:10 Chest Wound Culture - Preliminary NO GROWTH OBTAINED AFTER 24 HOURS INCUBATION, REINCUBATED. ASSESSMENT AND PLAN: This patient is a 59yof with PMHx of HTN,HLD,GERD, metastatic non small cell lung cancer, admitted for acute kidney injury. #Acute kidney injury: continue IVF , trend #Non small cell lung cancer ;hem/onc dr. Guallpa, Thoracic surgery consult for evaluation of possible malignant effusion #Hx of HTN: continue metoprolol #Hx of HLD: continue Statin #Hx of GERD continue PPi DVt px: Heparin sq
--- NOTE | 2020-09-06 16:18 | PN ---
Progress Note, Physician History of Present Illness: Seen and examined at the bedside awake and alert has some drainage from her prior chest tube site denies any fever, chills, shortness of breath, cough or chest pain making urine on IV fluids - Current Medication List Current Medications: Active Medications Acetaminophen (Tylenol -) 500 mg PO Q6H PRN PRN Reason: PAIN LEVEL 1-5 Aspirin (Asa -) 81 mg PO DAILY [facility] Last Admin: 09/06/20 11:21 Dose: 81 mg Documented by: Atorvastatin Calcium (Lipitor -) 10 mg PO HS [facility] Last Admin: 09/05/20 21:08 Dose: 10 mg Documented by: Bacitracin (Bacitracin -) 1 applic TP BID [facility] Famotidine (Acid Heavy Equipment Operator Apprentice) 10 mg PO DAILY [facility] Heparin Sodium (Porcine) (Heparin -) 5,000 unit SQ BID [facility] Last Admin: 09/06/20 11:21 Dose: 5,000 unit Documented by: Sodium Chloride (Normal Saline -) 1,000 mls @ 83 mls/hr IV ASDIR [facility] Last Admin: 09/05/20 15:58 Dose: 83 mls/hr Documented by: Piperacillin Sod/Tazobactam (Sod 2.25 gm/ Dextrose) 50 mls @ 100 mls/hr IVPB Q8H-IV MELBA; Protocol Last Admin: 09/06/20 13:02 Dose: 100 mls/hr Documented by: Metoprolol Succinate (Toprol Xl -) 50 mg PO DAILY [facility] - Objective Vital Signs: Vital Signs Temperature 97.8 F 09/06/20 13:58 Pulse Rate 83 09/06/20 13:58 Respiratory Rate 20 09/06/20 13:58 Blood Pressure 110/66 09/06/20 13:58 O2 Sat by Pulse Oximetry (%) 98 09/06/20 13:58 Constitutional: Yes: No Distress, Calm Cardiovascular: Yes: Regular Rate and Rhythm Respiratory: Yes: Regular, Diminished Gastrointestinal: Yes: Soft Extremities: No: Cold, Cool, Cyanosis Edema: Yes Edema: LLE: Trace, RLE: Trace Neurological: Yes: Alert Labs: CBC, BMP 09/06/20 06:45 09/06/20 06:45 Assessment/Plan 59 year old woman with history of lung cancer on chemotherapy, hypertension, hyperlipidemia who presents with abnormal renal function. 1. Acute kidney injury 2. Lung cancer 3. Sepsis/Pneumonia 4. Hypertension 5. Hyperlipidemia Renal function improving. FeNa was 2.3% (consistent with tubular injury) US showed no obstruction but echogenicity consistent with CKD UA showed 24 WBC, eosinophils pending no peripheral eosinophilia noted. Would hold antibiotics for now, specifically PCN based antibiotics. Will discuss with ID. Continue NS at 84cc per hour x [address] of the chest to be done to monitor effusion. Serologic studies pending, LDH WNL, Haptolgobin slightly elevated. Trend renal function daily. There is no acute need for renal replacement therapy. Darryl Vazquez DO
[2020-09-06] MEDS: SODIUM CHLORIDE 1,000 ML IV SCH (17:19)
[2020-09-06] MEDS: BACITRACIN 15 GM TUBE TOPICAL OINTMENT TP SCH (21:56)
[2020-09-06] MEDS: ATORVASTATIN CA 10 MG TABLET (FP) PO SCH (21:56)
[2020-09-07 06:48] LABS: BASO % 0.4 % (0-2.0); EOS % 3.1 % (0-4.5); HEMATOCRIT 23.6 % (32.4-45.2); HEMOGLOBIN 7.7 GM/dL (10.7-15.3); LYMPH % 8.3 % (8-40); MCH 25.7 pg (25.7-33.7); MCHC 32.4 g/dl (32.0-36.0); MEAN CELL VOLUME 79.4 fl (80-96); MEAN PLT VOLUME 9.9 fl (7.5-11.1); MONO % 6.1 % (3.8-10.2); NEUT % 82.1 % (42.8-82.8); PLATELET COUNT 234 K/MM3 (134-434); RBC 2.98 M/mm3 (3.60-5.2); WHITE BLOOD COUNT 6.5 K/mm3 (4.0-10.0)
[2020-09-07] MEDS: SODIUM CHLORIDE 1,000 ML IV SCH (07:13)
[2020-09-07 07:22] LABS: ALBUMIN 1.6 g/dl (3.4-5.0); BILIRUBIN,TOTAL 0.4 mg/dL (0.2-1); BLOOD UREA NITROGEN 34.7 mg/dL (7-18); CALCIUM 7.6 mg/dL (8.5-10.1); MAGNESIUM 1.6 mg/dL (1.8-2.4); POTASSIUM 4.1 mmol/L (3.5-5.1); TOT PROT 4.6 g/dl (6.4-8.2)
[2020-09-07] MEDS: FAMOTIDINE 10 MG TABLET PO SCH (09:02)
[2020-09-07] MEDS: ASPIRIN 81 MG CHEWABLE TABLETS PO SCH (09:03)
[2020-09-07] MEDS: HEPARIN NA (PORCINE) 5,000 UNITS/ML 1ML VIAL SQ SCH ×2 (09:03→22:01)
[2020-09-07] MEDS: BACITRACIN 15 GM TUBE TOPICAL OINTMENT TP SCH ×2 (09:04→22:01)
--- NOTE | 2020-09-07 13:21 | PN ---
Progress Note (short form) - Note Progress Note: Resting in NAD. Reports breathing feels stable. N/V last night. LBMs. Intake & Output 09/04/20 09/05/20 09/06/20 09/07/20 23:59 23:59 23:59 23:59 Intake Total 2353 581 Balance 2353 581 Weight 90 lb 90 lb Last Vital Signs Temp Pulse Resp BP Pulse Ox 98.2 F 93 H 18 137/70 98 09/07/20 09:22 09/07/20 09:22 09/07/20 09:22 09/07/20 09:22 09/07/20 06:00 Active Medications Acetaminophen (Tylenol -) 500 mg PO Q6H PRN PRN Reason: PAIN LEVEL 1-5 Aspirin (Asa -) 81 mg PO DAILY [facility] Last Admin: 09/07/20 09:03 Dose: 81 mg Documented by: Atorvastatin Calcium (Lipitor -) 10 mg PO HS [facility] Last Admin: 09/06/20 21:56 Dose: 10 mg Documented by: Bacitracin (Bacitracin -) 1 applic TP BID [facility] Last Admin: 09/07/20 09:04 Dose: 1 applic Documented by: Famotidine (Acid Home Staging Specialist) 10 mg PO DAILY [facility] Last Admin: 09/07/20 09:02 Dose: 10 mg Documented by: Heparin Sodium (Porcine) (Heparin -) 5,000 unit SQ BID [facility] Last Admin: 09/07/20 09:03 Dose: 5,000 unit Documented by: Piperacillin Sod/Tazobactam (Sod 2.25 gm/ Dextrose) 50 mls @ 100 mls/hr IVPB Q8H-IV MELBA; Protocol Last Admin: 09/06/20 13:02 Dose: 100 mls/hr Documented by: Metoprolol Succinate (Toprol Xl -) 50 mg PO DAILY [facility] Constitutional: Yes: Calm Eyes: Yes: EOM Intact HENT: Yes: Normocephalic Neck: Yes: Trachea Midline Cardiovascular: Yes: Regular Rate and Rhythm Respiratory: Yes: Diminished (left base up 1/2), Dullness, Other (left base up 1/2 lung field) Gastrointestinal: Yes: Normal Bowel Sounds Edema: No Labs: Laboratory Results - last 24 hr 09/05/20 09/05/20 09/06/20 14:22 20:49 11:30 WBC RBC Hgb Hct MCV MCH MCHC RDW Plt Count MPV Absolute Neuts (auto) Neutrophils % Lymphocytes % Monocytes % Eosinophils % Basophils % Nucleated RBC % Sodium Potassium Chloride Carbon Dioxide Anion Gap BUN Creatinine Est GFR (CKD-EPI)AfAm Est GFR (CKD-EPI)NonAf Random Glucose Calcium Phosphorus Magnesium Total Bilirubin AST ALT Alkaline Phosphatase Total Protein Albumin KLAUDIA Screen Negative Tot Complement (CH50) > 60 COVID-19 (ANGELIQUE) Not detected Hep A IgM Ab Confirm Negative Hep Bs Antigen Negative Hep B Core IgM Ab Negative Hepatitis C Ab (EIA) <0.1 09/07/20 09/07/20 06:24 06:24 WBC 6.5 RBC 2.98 L Hgb 7.7 L Hct 23.6 L MCV 79.4 L MCH 25.7 MCHC 32.4 RDW 16.0 H Plt Count 234 MPV 9.9 Absolute Neuts (auto) 5.3 Neutrophils % 82.1 Lymphocytes % 8.3 D Monocytes % 6.1 Eosinophils % 3.1 D Basophils % 0.4 Nucleated RBC % 0 Sodium 142 Potassium 4.1 Chloride 115 H Carbon Dioxide 18 L Anion Gap 9 BUN 34.7 H Creatinine 2.0 H Est GFR (CKD-EPI)AfAm 30.68 Est GFR (CKD-EPI)NonAf 26.47 Random Glucose 67 L Calcium 7.6 L Phosphorus 3.0 Magnesium 1.6 L Total Bilirubin 0.4 AST 13 L ALT 7 L Alkaline Phosphatase 72 Total Protein 4.6 L Albumin 1.6 L KLAUDIA Screen Tot Complement (CH50) COVID-19 (ANGELIQUE) Hep A IgM Ab Confirm Hep Bs Antigen Hep B Core IgM Ab Hepatitis C Ab (EIA) Imaging - Results Chest X-ray: Report Reviewed, Image Reviewed Problem List - Problems (1) Lung cancer Code(s): C34.90 - MALIGNANT NEOPLASM OF UNSP PART OF UNSP BRONCHUS OR LUNG Qualifiers: Laterality: unspecified laterality Lung location: unspecified part of lung Qualified Code(s): C34.90 - Malignant neoplasm of unspecified part of unspecified bronchus or lung (2) Malignant pleural effusion Code(s): J91.0 - MALIGNANT PLEURAL EFFUSION (3) Trapped lung Code(s): J98.19 - OTHER PULMONARY COLLAPSE (4) Anxiety Code(s): F41.9 - ANXIETY DISORDER, UNSPECIFIED (5) Soft tissue infection Code(s): L08.9 - LOCAL INFECTION OF THE SKIN AND SUBCUTANEOUS TISSUE, UNSP Assessment/Plan EMPYEMA LEFT PLEURAL SPACE S/P DRAINAGE NOW WITH CONTINUED DENSITY IR and Thoracic surgery evaluation pending Supplemental O2 as needed Pro-biotic VTE prophylaxis ABX per ID Dr Damon
--- NOTE | 2020-09-07 14:14 | PN ---
Progress Note, Physician History of Present Illness: Pt states she feels weak but denies SOB, appears comfortable. Afebrile. - Current Medication List Current Medications: Active Medications Acetaminophen (Tylenol -) 500 mg PO Q6H PRN PRN Reason: PAIN LEVEL 1-5 Aspirin (Asa -) 81 mg PO DAILY [facility] Last Admin: 09/07/20 09:03 Dose: 81 mg Documented by: Atorvastatin Calcium (Lipitor -) 10 mg PO HS [facility] Last Admin: 09/06/20 21:56 Dose: 10 mg Documented by: Bacitracin (Bacitracin -) 1 applic TP BID [facility] Last Admin: 09/07/20 09:04 Dose: 1 applic Documented by: Famotidine (Acid Mixing Plant Dumper) 10 mg PO DAILY [facility] Last Admin: 09/07/20 09:02 Dose: 10 mg Documented by: Heparin Sodium (Porcine) (Heparin -) 5,000 unit SQ BID [facility] Last Admin: 09/07/20 09:03 Dose: 5,000 unit Documented by: Piperacillin Sod/Tazobactam (Sod 2.25 gm/ Dextrose) 50 mls @ 100 mls/hr IVPB Q8H-IV [facility]; Protocol Last Admin: 09/06/20 13:02 Dose: 100 mls/hr Documented by: Lactobacillus Acidophilus (Bacid -) 1 tab PO DAILY [facility] Metoprolol Succinate (Toprol Xl -) 50 mg PO DAILY [facility] - Objective Vital Signs: Vital Signs Temperature 98.2 F 09/07/20 09:22 Pulse Rate 93 H 09/07/20 09:22 Respiratory Rate 18 09/07/20 09:22 Blood Pressure 137/70 09/07/20 09:22 O2 Sat by Pulse Oximetry (%) 98 09/07/20 06:00 Constitutional: Yes: No Distress, Calm Cardiovascular: Yes: Regular Rate and Rhythm Respiratory: Yes: Diminished (Lt lung) Gastrointestinal: Yes: Normal Bowel Sounds, Soft Genitourinary: Yes: WNL Wound/Incision: Yes: Other (Lt chest wound with drainage, no tenderness at site) Neurological: Yes: Alert Labs: CBC, BMP 09/07/20 06:24 09/07/20 06:24 Laboratory Last Values WBC 6.5 K/mm3 (4.0-10.0) 09/07/20 06:24 RBC 2.98 M/mm3 (3.60-5.2) L 10/10/20 06:24 Hgb 7.7 GM/dL (10.7-15.3) L 09/07/20 06:24 Hct 23.6 % (32.4-45.2) L 09/07/20 06:24 MCV 79.4 fl (80-96) L 09/07/20 06:24 MCH 25.7 pg (25.7-33.7) 09/07/20 06:24 MCHC 32.4 g/dl (32.0-36.0) 09/07/20 06:24 RDW 16.0 % (11.6-15.6) H 09/07/20 06:24 Plt Count 234 K/MM3 (134-434) 09/07/20 06:24 MPV 9.9 fl (7.5-11.1) 09/07/20 06:24 Absolute Neuts (auto) 5.3 K/mm3 (1.5-8.0) 09/07/20 06:24 Neutrophils % 82.1 % (42.8-82.8) 09/07/20 06:24 Lymphocytes % 8.3 % (8-40) D 09/07/20 06:24 Monocytes % 6.1 % (3.8-10.2) 09/07/20 06:24 Eosinophils % 3.1 % (0-4.5) D 09/07/20 06:24 Basophils % 0.4 % (0-2.0) 09/07/20 06:24 Nucleated RBC % 0 % (0-0) 09/07/20 06:24 Haptoglobin 550 mg/dL (33-346) H 09/05/20 14:22 Sodium 142 mmol/L (136-145) 09/07/20 06:24 Potassium 4.1 mmol/L (3.5-5.1) 09/07/20 06:24 Chloride 115 mmol/L (98-107) H 09/07/20 06:24 Carbon Dioxide 18 mmol/L (21-32) L 09/07/20 06:24 Anion Gap 9 MMOL/L (8-16) 09/07/20 06:24 BUN 34.7 mg/dL (7-18) H 09/07/20 06:24 Creatinine 2.0 mg/dL (0.55-1.3) H 09/07/20 06:24 Est GFR (CKD-EPI)AfAm 30.68 09/07/20 06:24 Est GFR (CKD-EPI)NonAf 26.47 09/07/20 06:24 Random Glucose 67 mg/dL (74-106) L 09/07/20 06:24 Calcium 7.6 mg/dL (8.5-10.1) L 09/07/20 06:24 Phosphorus 3.0 mg/dL (2.5-4.9) 09/07/20 06:24 Magnesium 1.6 mg/dL (1.8-2.4) L 09/07/20 06:24 Total Bilirubin 0.4 mg/dL (0.2-1) 09/07/20 06:24 AST 13 U/L (15-37) L 09/07/20 06:24 ALT 7 U/L (13-61) L 09/07/20 06:24 Alkaline Phosphatase 72 U/L (45-117) 09/07/20 06:24 LD Total 233 U/L (84-246) 09/05/20 14:22 Creatine Kinase 115 U/L (26-192) 09/05/20 14:22 Total Protein 4.6 g/dl (6.4-8.2) L 09/07/20 06:24 Albumin 1.6 g/dl (3.4-5.0) L 09/07/20 06:24 Urine Color Yellow 09/05/20 19:15 Urine Appearance Cloudy 09/05/20 19:15 Urine pH 5.0 (5.0-8.0) 09/05/20 19:15 Ur Specific [place] 1.013 (1.010-1.035) 09/05/20 19:15 Urine Protein Trace (NEGATIVE) 09/05/20 19:15 Urine Glucose (UA) Negative (NEGATIVE) 09/05/20 19:15 Urine Ketones Negative (NEGATIVE) 09/05/20 19:15 Urine Blood Trace (NEGATIVE) 09/05/20 19:15 Urine Nitrite Negative (NEGATIVE) 09/05/20 19:15 Urine Bilirubin Negative (NEGATIVE) 09/05/20 19:15 Urine Urobilinogen 0.2 mg/dL (0.2-1.0) 09/05/20 19:15 Ur Leukocyte Esterase Negative (NEGATIVE) 09/05/20 19:15 Urine WBC (Auto) 24 /uL (0-25.8) 09/05/20 19:15 Urine Casts (Auto) 3 /uL (0-3.1) 09/05/20 19:15 U Epithel Cells (Auto) 15 /uL (0-25.1) 09/05/20 19:15 Urine Bacteria (Auto) 6 /uL (0-1359) 09/05/20 19:15 Ur Random Creatinine 77.0 mg/dL (30-150) 09/05/20 19:15 U Random Total Protein 84.3 mg/dL (0-11.9) H 09/05/20 19:15 Ur Random Sodium 99 MMOL/L (40-220) 09/05/20 19:15 Ur Random Urea Nitrogn 485 mg/dL (350-1000) 09/05/20 19:15 Random Vancomycin 6.4 ug/ml (5-26) 09/05/20 20:49 [facility] Screen Negative (.) 09/05/20 14:22 Tot Complement (CH50) > 60 U/mL (>41) 09/05/20 14:22 Syphilis Serology Reactive (NONREACTIVE) A* 09/05/20 20:49 RPR Titer Reactive 1:1 (NONREACTIVE) H 09/05/20 20:49 COVID-19 ([facility]) Not detected (Not Detected) 09/06/20 11:30 Hep A IgM Ab Confirm Negative (Negative) 09/05/20 20:49 Hep Bs Antigen Negative (Negative) 09/05/20 20:49 Hep B Core IgM Ab Negative (Negative) 09/05/20 20:49 Hepatitis C Ab (EIA) <0.1 s/co ratio (0.0-0.9) 09/05/20 20:49 Blood Type A POSITIVE 09/05/20 09:20 Antibody Screen Negative 09/05/20 09:20 Microbiology 09/06/20 12:10 Chest Gram Stain - Final 09/06/20 12:10 Chest Wound Culture - Preliminary NO GROWTH OBTAINED AFTER 24 HOURS INCUBATION, REINCUBATED. - ....Imaging Chest X-ray: Report Reviewed Cat Scan: Pending Ultrasound: Pending Problem List - Problems (1) Lung cancer Code(s): C34.90 - MALIGNANT NEOPLASM OF UNSP PART OF UNSP BRONCHUS OR LUNG Qualifiers: Laterality: unspecified laterality Lung location: unspecified part of lung Qualified Code(s): C34.90 - Malignant neoplasm of unspecified part of unspecified bronchus or lung (2) Malignant pleural effusion Code(s): J91.0 - MALIGNANT PLEURAL EFFUSION (4) Trapped lung Code(s): J98.19 - OTHER PULMONARY COLLAPSE (5) Soft tissue infection Code(s): L08.9 - LOCAL INFECTION OF THE SKIN AND SUBCUTANEOUS TISSUE, UNSP Assessment/Plan Wound infection Recent Empyema s/p previous chest tube YOUSUF Lung CA with mets Trapped Lung -- previous history of MRSA from chest cultures -- Will dose Vancomycin based on renal function, improving -- Zosyn held -- follow up pending cultures -- CT results pending, Thoracic surgery/IR eval -- Serology and RPR + without known history Syphilis and pt denies treatment in the past - will consider treatment for latent latent infection once stable
--- NOTE | 2020-09-07 14:56 | PN ---
Teaching Attending Note Name of Resident: Shaquille Shah ATTENDING PHYSICIAN STATEMENT I saw and evaluated the patient. I reviewed the resident's note and discussed the case with the resident. I agree with the resident's findings and plan as documented. SUBJECTIVE: Patient seen and examined at bedside, admitted for YOUSUF, h/o metastatic NSCLC on chemo/RT, VSS. OBJECTIVE: GA cachectic, tired appearing, AAOx3 HEENT NC/AT, dry MM, neck supple Chest CTAB, no crackles or wheezing CVS s1, s2+, RRR Abd grossly soft, thin body habitus, NT, ND, BS+ Ext no LE edema, no calf tenderness, thin extremities Vital Signs (72 hours) 09/05/20 09/05/20 09/05/20 09:00 13:50 17:52 Temperature 97.3 F L 97.6 F Pulse Rate 93 H 84 Respiratory 18 18 Rate Blood Pressure 93/33 L 94/45 L O2 Sat by Pulse 100 100 Oximetry (%) 09/05/20 09/05/20 09/06/20 21:00 21:16 03:00 Temperature 98.6 F 97.6 F Pulse Rate 84 87 Respiratory 16 16 18 Rate Blood Pressure 102/55 L 96/49 L O2 Sat by Pulse 100 100 100 Oximetry (%) 09/06/20 09/06/20 09/06/20 09:00 09:10 13:58 Temperature 98.8 F 97.8 F Pulse Rate 92 H 83 Respiratory 18 20 Rate Blood Pressure 99/46 L 110/66 O2 Sat by Pulse 100 100 98 Oximetry (%) 09/06/20 09/06/20 09/06/20 18:00 21:00 22:00 Temperature 98.1 F 97.8 F Pulse Rate 92 H 90 Respiratory 20 18 18 Rate Blood Pressure 107/54 L 105/55 L O2 Sat by Pulse 99 99 99 Oximetry (%) 09/07/20 09/07/20 09/07/20 06:00 09:22 14:00 Temperature 98.4 F 98.2 F 98.6 F Pulse Rate 90 93 H 92 H Respiratory 18 18 Rate Blood Pressure 104/40 L 137/70 113/54 L O2 Sat by Pulse 98 Oximetry (%) Microbiology 09/06/20 12:10 Chest Gram Stain - Final 09/06/20 12:10 Chest Wound Culture - Preliminary NO GROWTH OBTAINED AFTER 24 HOURS INCUBATION, REINCUBATED. Laboratory Results - last 24 hr 09/05/20 09/05/20 09/06/20 14:22 20:49 11:30 WBC RBC Hgb Hct MCV MCH MCHC RDW Plt Count MPV Absolute Neuts (auto) Neutrophils % Lymphocytes % Monocytes % Eosinophils % Basophils % Nucleated RBC % Sodium Potassium Chloride Carbon Dioxide Anion Gap BUN Creatinine Est GFR (CKD-EPI)AfAm Est GFR (CKD-EPI)NonAf Random Glucose Calcium Phosphorus Magnesium Total Bilirubin AST ALT Alkaline Phosphatase Total Protein Albumin [facility] Screen Negative COVID-19 ([facility]) Not detected Hep A IgM Ab Confirm Negative Hep Bs Antigen Negative Hep B Core IgM Ab Negative Hepatitis C Ab (EIA) <0.1 09/07/20 09/07/20 06:24 06:24 WBC 6.5 RBC 2.98 L Hgb 7.7 L Hct 23.6 L MCV 79.4 L MCH 25.7 MCHC 32.4 RDW 16.0 H Plt Count 234 MPV 9.9 Absolute Neuts (auto) 5.3 Neutrophils % 82.1 Lymphocytes % 8.3 D Monocytes % 6.1 Eosinophils % 3.1 D Basophils % 0.4 Nucleated RBC % 0 Sodium 142 Potassium 4.1 Chloride 115 H Carbon Dioxide 18 L Anion Gap 9 BUN 34.7 H Creatinine 2.0 H Est GFR (CKD-EPI)AfAm 30.68 Est GFR (CKD-EPI)NonAf 26.47 Random Glucose 67 L Calcium 7.6 L Phosphorus 3.0 Magnesium 1.6 L Total Bilirubin 0.4 AST 13 L ALT 7 L Alkaline Phosphatase 72 Total Protein 4.6 L Albumin 1.6 L KLAUDIA Screen COVID-19 ([facility]) Hep A IgM Ab Confirm Hep Bs Antigen Hep B Core IgM Ab Hepatitis C Ab (EIA) Home Medications Medication Instructions Recorded Atorvastatin Ca [Lipitor] 10 mg PO HS tablet 04/09/14 Cholecalciferol (Vitamin D3) 2,000 units PO DAILY 06/14/17 [Vitamin D3 -] Aspirin 81 mg PO DAILY 02/21/18 Metoprolol Succinate 50 mg PO DAILY 06/10/20 Acetaminophen [Tylenol] 500 mg PO QID PRN 08/17/20 Ascorbate Calcium [Vitamin C] 500 mg PO BID 08/17/20 Omeprazole 20 mg PO DAILY 08/17/20 Prochlorperazine Maleate 10 mg PO 09/06/20 [Compazine] Current Medications Generic Name Dose Route Start Last Admin Trade Name Freleona PRN Reason Stop Dose Admin Acetaminophen 500 mg 09/05/20 16:04 Tylenol - PO Q6H PRN PAIN LEVEL 1-5 Aspirin 81 mg 09/06/20 10:00 09/07/20 09:03 Asa - PO 81 mg DAILY [facility] Administration Atorvastatin Calcium 10 mg 09/05/20 22:00 09/06/20 21:56 Lipitor - PO 10 mg HS [facility] Administration Bacitracin 1 applic 09/06/20 22:00 09/07/20 09:04 Bacitracin - TP 1 applic BID [facility] Administration Famotidine 10 mg 09/07/20 10:00 09/07/20 09:02 Acid Ict Educator PO 10 mg DAILY [facility] Administration Heparin Sodium (Porcine) 5,000 unit 09/05/20 22:00 09/07/20 09:03 Heparin - SQ 5,000 unit BID [facility] Administration Lactobacillus Acidophilus 1 tab 09/07/20 13:30 Bacid - PO DAILY [facility] Metoprolol Succinate 50 mg 09/06/20 10:00 Toprol Xl - PO DAILY [facility] ASSESSMENT AND PLAN: 59 F Metastatic lung ca YOUSUF HTN HLD GERD Osteoporosis Deconditioned Plan: Adequate IVF w/ repeat of CRE Renal US to r/o obstructive uropathy Avoid NSAIDs, hypotension, hold LIZZETH/ARB/diuretics Renal evaluation Correct electrolytes aggressively Heme-Onc following DVT ppx: Heparin SC
--- NOTE | 2020-09-07 16:05 | PN ---
Progress Note, Physician History of Present Illness: Seen and examined at the bedside awake and alert continues to have drainage from her prior chest tube site denies any fever, chills, shortness of breath, cough or chest pain making urine on IV fluids - Current Medication List Current Medications: Active Medications Acetaminophen (Tylenol -) 500 mg PO Q6H PRN PRN Reason: PAIN LEVEL 1-5 Aspirin (Asa -) 81 mg PO DAILY [facility] Last Admin: 09/07/20 09:03 Dose: 81 mg Documented by: Atorvastatin Calcium (Lipitor -) 10 mg PO HS [facility] Last Admin: 09/06/20 21:56 Dose: 10 mg Documented by: Bacitracin (Bacitracin -) 1 applic TP BID [facility] Last Admin: 09/07/20 09:04 Dose: 1 applic Documented by: Famotidine (Acid Monkey Trainer) 10 mg PO DAILY [facility] Last Admin: 09/07/20 09:02 Dose: 10 mg Documented by: Heparin Sodium (Porcine) (Heparin -) 5,000 unit SQ BID [facility] Last Admin: 09/07/20 09:03 Dose: 5,000 unit Documented by: Lactobacillus Acidophilus (Bacid -) 1 tab PO DAILY [facility] Metoprolol Succinate (Toprol Xl -) 50 mg PO DAILY [facility] Ondansetron HCl (Zofran Odt -) 4 mg SL Q8H PRN PRN Reason: NAUSEA Sodium Bicarbonate (Sodium Bicarbonate -) 650 mg PO DAILY [facility] - Objective Vital Signs: Vital Signs Temperature 98.6 F 09/07/20 14:00 Pulse Rate 92 H 09/07/20 14:00 Respiratory Rate 18 09/07/20 09:22 Blood Pressure 113/54 L 09/07/20 14:00 O2 Sat by Pulse Oximetry (%) 98 09/07/20 06:00 Constitutional: Yes: No Distress Neck: Yes: Supple Respiratory: Yes: Regular, Diminished Gastrointestinal: Yes: Soft Extremities: No: Cyanosis Edema: Yes Edema: LLE: Trace, RLE: Trace Labs: CBC, BMP 09/07/20 06:24 09/07/20 06:24 Assessment/Plan 59 year old woman with history of lung cancer on chemotherapy, hypertension, hyperlipidemia who presents with abnormal renal function. 1. Acute kidney injury 2. Lung cancer 3. Sepsis/Pneumonia 4. Hypertension 5. Hyperlipidemia Renal function improved but not yet at baseline. FeNa was 2.3% (consistent with tubular injury) US showed no obstruction but echogenicity consistent with CKD UA showed 24 WBC, eosinophils pending no peripheral eosinophilia noted. Would hold antibiotics for now, specifically PCN based antibiotics. Discussed with ID. d/c IVF today oral intake as tolerated Zofran PRN IR/CT surgery evalulation pending Serologic studies pending, LDH WNL, Haptolgobin slightly elevated. Trend renal function daily. There is no acute need for renal replacement therapy. Darryl Vazquez DO
[2020-09-07] MEDS: ONDANSETRON *ODT* 4 MG TABLET SL PRN ×2 (16:07→22:00)
--- NOTE | 2020-09-07 16:57 | PN ---
Progress Note (short form) - Note Progress Note: Patient feels nauseas , does not want to eat. Vital Signs Temperature 98.6 F 09/07/20 14:00 Pulse Rate 92 H 09/07/20 14:00 Respiratory Rate 18 09/07/20 09:22 Blood Pressure 113/54 L 09/07/20 14:00 O2 Sat by Pulse Oximetry (%) 98 09/07/20 06:00 GENERAL: The patient is awake, alert, and fully oriented, in no acute distress. HEAD: Normal with no signs of trauma. EYES: PERRL, extraocular movements intact, sclera anicteric, conjunctiva clear. ENT: Ears normal, oropharynx clear without exudates, moist mucous membranes. NECK: Trachea midline, full range of motion, supple. LUNGS: Breath sounds equal, clear to auscultation bilaterally, no wheezes, no crackles, no accessory muscle use. HEART: Regular rate and rhythm, S1, S2 without murmur, rub or gallop. ABDOMEN: Soft, nontender, nondistended, normoactive bowel sounds, no guarding, no rebound, no hepatosplenomegaly, no masses. EXTREMITIES: 2+ pulses, warm, well-perfused, no edema. NEUROLOGICAL: Cranial nerves II through XII grossly intact. Normal speech, gait not observed. PSYCH: Normal mood, normal affect. SKIN: Warm, dry, normal turgor, no rashes or lesions noted CBCD WBC 6.5 K/mm3 (4.0-10.0) 09/07/20 06:24 RBC 2.98 M/mm3 (3.60-5.2) L 09/07/20 06:24 Hgb 7.7 GM/dL (10.7-15.3) L 09/07/20 06:24 Hct 23.6 % (32.4-45.2) L 09/07/20 06:24 MCV 79.4 fl (80-96) L 09/07/20 06:24 MCHC 32.4 g/dl (32.0-36.0) 09/07/20 06:24 RDW 16.0 % (11.6-15.6) H 09/07/20 06:24 Plt Count 234 K/MM3 (134-434) 09/07/20 06:24 MPV 9.9 fl (7.5-11.1) 09/07/20 06:24 CMP Sodium 142 mmol/L (136-145) 09/07/20 06:24 Potassium 4.1 mmol/L (3.5-5.1) 09/07/20 06:24 Chloride 115 mmol/L (98-107) H 09/07/20 06:24 Carbon Dioxide 18 mmol/L (21-32) L 09/07/20 06:24 Anion Gap 9 MMOL/L (8-16) 09/07/20 06:24 BUN 34.7 mg/dL (7-18) H 09/07/20 06:24 Creatinine 2.0 mg/dL (0.55-1.3) H 09/07/20 06:24 Random Glucose 67 mg/dL (74-106) L 09/07/20 06:24 Calcium 7.6 mg/dL (8.5-10.1) L 09/07/20 06:24 Total Bilirubin 0.4 mg/dL (0.2-1) 09/07/20 06:24 AST 13 U/L (15-37) L 09/07/20 06:24 ALT 7 U/L (13-61) L 09/07/20 06:24 Alkaline Phosphatase 72 U/L (45-117) 09/07/20 06:24 Total Protein 4.6 g/dl (6.4-8.2) L 09/07/20 06:24 Albumin 1.6 g/dl (3.4-5.0) L 09/07/20 06:24 CARDIAC ENZYMES Creatine Kinase 115 U/L (26-192) 09/05/20 14:22 Current Medications Generic Name Dose Route Start Last Admin Trade Name Freq PRN Reason Stop Dose Admin Acetaminophen 500 mg 09/05/20 16:04 Tylenol - PO Q6H PRN PAIN LEVEL 1-5 Aspirin 81 mg 09/06/20 10:00 09/07/20 09:03 Asa - PO 81 mg DAILY [facility] Administration Atorvastatin Calcium 10 mg 09/05/20 22:00 09/06/20 21:56 Lipitor - PO 10 mg HS [facility] Administration Bacitracin 1 applic 09/06/20 22:00 09/07/20 09:04 Bacitracin - TP 1 applic BID [facility] Administration Famotidine 10 mg 09/07/20 10:00 09/07/20 09:02 Acid Hanger Off PO 10 mg DAILY [facility] Administration Heparin Sodium (Porcine) 5,000 unit 09/05/20 22:00 09/07/20 09:03 Heparin - SQ 5,000 unit BID [facility] Administration Lactobacillus Acidophilus 1 tab 09/07/20 13:30 Bacid - PO DAILY [facility] Metoprolol Succinate 50 mg 09/06/20 10:00 Toprol Xl - PO DAILY [facility] Ondansetron HCl 4 mg 09/07/20 15:30 09/07/20 16:07 Zofran Odt - SL 4 mg Q8H PRN Administration NAUSEA Sodium Bicarbonate 650 mg 09/07/20 15:30 Sodium Bicarbonate - PO DAILY [facility] Microbiology 09/06/20 12:10 Chest Gram Stain - Final 09/06/20 12:10 Chest Wound Culture - Preliminary NO GROWTH OBTAINED AFTER 24 HOURS INCUBATION, REINCUBATED. ASSESSMENT AND PLAN: This patient is a 59yof with PMHx of HTN,HLD,GERD, metastatic non small cell lung cancer, admitted for acute kidney injury. #Acute kidney injury: creatinine is 2.0 today continue to trend and continue IVF #Non small cell lung cancer ;hem/onc dr. Guallpa, Thoracic surgery consult for evaluation of possible malignant effusion #Hx of HTN: continue metoprolol #Hx of HLD: continue Statin #Hx of GERD continue PPi DVt px: Heparin sq Visit type - Emergency Visit Emergency Visit: Yes ED Registration Date: 09/05/20 Care time: The patient presented to the Emergency Department on the above date and was hospitalized for further evaluation of their emergent condition. - New Patient This patient is new to me today: No - Critical Care Critical Care patient: No - Discharge Referral Referred to [facility] Med [facility].C.: No
--- NOTE | 2020-09-07 16:58 | PN.HO ---
Progress Note (short form) - Note Progress Note: S: Doing well. Vomited last night due to spicy food, did not want to have breakfast as was afraid of vomiting O: Last Vital Signs Temp Pulse Resp BP Pulse Ox 98.6 F 92 H 18 113/54 L 98 09/07/20 14:00 09/07/20 14:00 09/07/20 09:22 09/07/20 14:00 09/07/20 06:00 Gen: NAD HEENT: MMM CVS: S1, S2 Lungs: limited/good air entry ant L Abdomen: Soft, NT, ND Skin: Bandage wet Ext: No edema Neuro: Non focal. Moves all extremities 09/07/20 06:24 09/07/20 06:24 Current Medications Generic Name Dose Route Start Last Admin Trade Name Freq PRN Reason Stop Dose Admin Acetaminophen 500 mg 09/05/20 16:04 Tylenol - PO Q6H PRN PAIN LEVEL 1-5 Aspirin 81 mg 09/06/20 10:00 09/07/20 09:03 Asa - PO 81 mg DAILY [facility] Administration Atorvastatin Calcium 10 mg 09/05/20 22:00 09/06/20 21:56 Lipitor - PO 10 mg HS [facility] Administration Bacitracin 1 applic 09/06/20 22:00 09/07/20 09:04 Bacitracin - TP 1 applic BID [facility] Administration Famotidine 10 mg 09/07/20 10:00 09/07/20 09:02 Acid Commercial Portfolio Manager PO 10 mg DAILY [facility] Administration Heparin Sodium (Porcine) 5,000 unit 09/05/20 22:00 09/07/20 09:03 Heparin - SQ 5,000 unit BID [facility] Administration Lactobacillus Acidophilus 1 tab 09/07/20 13:30 Bacid - PO DAILY [facility] Metoprolol Succinate 50 mg 09/06/20 10:00 Toprol Xl - PO DAILY [facility] Ondansetron HCl 4 mg 09/07/20 15:30 09/07/20 16:07 Zofran Odt - SL 4 mg Q8H PRN Administration NAUSEA Sodium Bicarbonate 650 mg 09/07/20 15:30 Sodium Bicarbonate - PO DAILY [facility] Assessment and Plan: 59 y/o lady with 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 Cr now is 2.0. [facility] nephrology input 2) I personally reviewed the CT Chest obtained and shows large left opacity (possible effusion/empyema)and right pleural effusion (official reading pending) 3) CT Surgery consult pending. 4) [facility] input. 5) EGFR+ Stage IV Lung Adenocarcinoma. Holding Osimertinib. Cannot rule out progression given recent CT. Awaiting official reading.
[2020-09-07] MEDS: SODIUM BICARBONATE 650 MG TABLET PO SCH (17:06)
[2020-09-07] MEDS: LACTOBACILLUS ACIDOPHILUS 1 TABLET PO SCH (17:06)
[2020-09-07] MEDS ORDERED: MAGNESIUM SULF 50% (8.12 MEQ/2 ML-1 GM VIAL) IVPB ONE (18:57)
[2020-09-07] MEDS: ATORVASTATIN CA 10 MG TABLET (FP) PO SCH (22:00)
[2020-09-08 07:34] LABS: BASO % 0.4 % (0-2.0); EOS % 1.5 % (0-4.5); HEMATOCRIT 25.1 % (32.4-45.2); LYMPH % 7.8 % (8-40); MCH 25.3 pg (25.7-33.7); MCHC 31.7 g/dl (32.0-36.0); MEAN CELL VOLUME 79.9 fl (80-96); MEAN PLT VOLUME 10.1 fl (7.5-11.1); MONO % 8.3 % (3.8-10.2); PLATELET COUNT 272 K/MM3 (134-434); RBC 3.14 M/mm3 (3.60-5.2); RDW 15.5 % (11.6-15.6); WHITE BLOOD COUNT 7.9 K/mm3 (4.0-10.0)
[2020-09-08 08:05] LABS: ALBUMIN 1.9 g/dl (3.4-5.0); BILIRUBIN,TOTAL 0.3 mg/dL (0.2-1); BLOOD UREA NITROGEN 38.8 mg/dL (7-18); CREATININE 2.1 mg/dL (0.55-1.3); MAGNESIUM 2.3 mg/dL (1.8-2.4); PHOSPHOROUS 3.5 mg/dL (2.5-4.9); POTASSIUM 4.4 mmol/L (3.5-5.1); TOT PROT 5.1 g/dl (6.4-8.2)
[2020-09-08 08:24] LABS: CALCIUM 7.1 mg/dL (8.5-10.1)
[2020-09-08] MEDS: SODIUM BICARBONATE 650 MG TABLET PO SCH (10:20)
[2020-09-08] MEDS: FAMOTIDINE 10 MG TABLET PO SCH (10:21)
[2020-09-08] MEDS: ONDANSETRON *ODT* 4 MG TABLET SL PRN (10:21)
[2020-09-08] MEDS: ASPIRIN 81 MG CHEWABLE TABLETS PO SCH (10:21)
[2020-09-08] MEDS: LACTOBACILLUS ACIDOPHILUS 1 TABLET PO SCH (10:21)
[2020-09-08] MEDS: BACITRACIN 15 GM TUBE TOPICAL OINTMENT TP SCH ×2 (10:21→21:16)
[2020-09-08] MEDS: HEPARIN NA (PORCINE) 5,000 UNITS/ML 1ML VIAL SQ SCH ×2 (10:21→21:16)
--- NOTE | 2020-09-08 11:20 | PN ---
Physical Exam: SUBJECTIVE: Pt is alert, ambulating, afebrile. States she feels weak but denies SOB currently and has no abd pain/diarrhea. Dressing changed with minimal purulent discharge, reapplied dressing with betadine and bacitracin. OBJECTIVE: Vital Signs Period Temp Pulse Resp BP Sys/Gonzalez Pulse Ox Last 24 Hr 97.8 F-98.7 F 85-93 18-18 96-122/54-64 90-98 GENERAL: The patient is awake, alert, and fully oriented, in no acute distress. LUNGS: Breath sounds equal, clear to auscultation bilaterally. HEART: Regular rate and rhythm, S1, S2 without murmur, rub or gallop. ABDOMEN: Soft, nontender, nondistended. EXTREMITIES: 2+ pulses, warm, well-perfused, no edema. PSYCH: Normal mood, normal affect. SKIN: minimal purulent drainage from chest tube drainage site. Gauze reapplied to area on left upper back Laboratory Results - last 24 hr 09/05/20 09/08/20 09/08/20 19:15 07:15 07:15 WBC 7.9 RBC 3.14 L Hgb 8.0 L Hct 25.1 L MCV 79.9 L MCH 25.3 L MCHC 31.7 L RDW 15.5 Plt Count 272 MPV 10.1 Absolute Neuts (auto) 6.5 Neutrophils % 82.0 Lymphocytes % 7.8 L Monocytes % 8.3 Eosinophils % 1.5 Basophils % 0.4 Nucleated RBC % 0 Sodium Potassium Chloride Carbon Dioxide Anion Gap BUN Creatinine Est GFR (CKD-EPI)AfAm Est GFR (CKD-EPI)NonAf Random Glucose Calcium Phosphorus Magnesium Total Bilirubin AST ALT Alkaline Phosphatase Total Protein Albumin Urine Eosinophils None seen Random Vancomycin 18.6 09/08/20 07:15 WBC RBC Hgb Hct MCV MCH MCHC RDW Plt Count MPV Absolute Neuts (auto) Neutrophils % Lymphocytes % Monocytes % Eosinophils % Basophils % Nucleated RBC % Sodium 143 Potassium 4.4 Chloride 114 H Carbon Dioxide 18 L Anion Gap 11 BUN 38.8 H Creatinine 2.1 H Est GFR (CKD-EPI)AfAm 28.92 Est GFR (CKD-EPI)NonAf 24.95 Random Glucose 73 L Calcium 7.1 L Phosphorus 3.5 Magnesium 2.3 Total Bilirubin 0.3 AST 12 L ALT 8 L Alkaline Phosphatase 80 Total Protein 5.1 L Albumin 1.9 L Urine Eosinophils Random Vancomycin Active Medications Generic Name Dose Route Start Last Admin Trade Name Freq PRN Reason Stop Dose Admin Acetaminophen 500 mg 09/05/20 16:04 Tylenol - PO Q6H PRN PAIN LEVEL 1-5 Aspirin 81 mg 09/06/20 10:00 09/08/20 10:21 Asa - PO 81 mg DAILY MELBA Administration Atorvastatin Calcium 10 mg 09/05/20 22:00 09/07/20 22:00 Lipitor - PO 10 mg HS MELBA Administration Bacitracin 1 applic 09/06/20 22:00 09/08/20 10:21 Bacitracin - TP 1 applic BID MELBA Administration Famotidine 10 mg 09/07/20 10:00 09/08/20 10:21 Acid Photo Tech PO 10 mg DAILY MELBA Administration Heparin Sodium (Porcine) 5,000 unit 09/05/20 22:00 09/08/20 10:21 Heparin - SQ 5,000 unit BID MELBA Administration Lactobacillus Acidophilus 1 tab 09/07/20 13:30 09/08/20 10:21 Bacid - PO 1 tab DAILY MELBA Administration Metoprolol Succinate 50 mg 09/06/20 10:00 09/08/20 10:20 Toprol Xl - PO 50 mg DAILY MELBA Administration Ondansetron HCl 4 mg 09/07/20 15:30 09/08/20 10:21 Zofran Odt - SL 4 mg Q8H PRN Administration NAUSEA Sodium Bicarbonate 650 mg 09/07/20 15:30 09/08/20 10:20 Sodium Bicarbonate - PO 650 mg DAILY MELBA Administration ASSESSMENT/PLAN: This patient is a 59y/o F with a PMHx of HTN, HLD, GERD, metastatic non small cell lung cancer, admitted for acute kidney injury. #Acute kidney injury - creatinine is 2.1 today - continue to trend and continue IVF - evaluated by nephro for possible AIN vs ATN as pt has FeNa > 1 concerning for intrarenal cause - KLAUDIA negative, LDH wnl, haptoglobin, ANCA and other inflammatory markers ordered and pending - renal US showed no obstruction but echogenicity consistent with CKD - UA showing no eosinophils or peripheral eosinophilia not noted, no casts, although wbc present so cannot rule out AIN - will likely need renal bx if Cr does not improve despite stopping all abx with pennicillin in it and other nephrotoxic agents. #Non small cell lung cancer - hem/onc dr. Guallpa on case - Thoracic surgery consulted for evaluation of possible malignant effusion #MRSA + fluid culture in past/Syphillis - Vancomycin dose given 2 days ago - random level today 18, will continue to hold and repeat tomorrow, monitor renal function closely - will rpt random vanco in AM and dose accordingly to renal ftn once improves - Syphillis with RPR only 1:1 with positive serology likely latent will not Tx until pt Cr stable and do as o/p - 3 doses of [facility] G IM 2.6 million units once a week for 3 weeks. #Hx of HTN - continue metoprolol #Hx of HLD - continue Statin #Hx of GERD - continue PPi DVt px: Heparin sq BID Visit type - Emergency Visit Emergency Visit: Yes ED Registration Date: 09/05/20 Care time: The patient presented to the Emergency Department on the above date and was hospitalized for further evaluation of their emergent condition. - New Patient This patient is new to me today: Yes Date on this admission: 09/08/20 - Critical Care Critical Care patient: No - Discharge Referral Referred to [facility] Med [facility] No ATTENDING PHYSICIAN STATEMENT I saw and evaluated the patient. I reviewed the resident's note and discussed the case with the resident. I agree with the resident's findings and plan as documented. SUBJECTIVE: OBJECTIVE: ASSESSMENT AND PLAN:
--- NOTE | 2020-09-08 11:51 | PN ---
Progress Note, Physician History of Present Illness: Seen and examined at the bedside awake and alert denies any fever, chills, shortness of breath, cough or chest pain making urine - Current Medication List Current Medications: Active Medications Acetaminophen (Tylenol -) 500 mg PO Q6H PRN PRN Reason: PAIN LEVEL 1-5 Aspirin (Asa -) 81 mg PO DAILY [facility] Last Admin: 09/08/20 10:21 Dose: 81 mg Documented by: Atorvastatin Calcium (Lipitor -) 10 mg PO HS [facility] Last Admin: 09/07/20 22:00 Dose: 10 mg Documented by: Bacitracin (Bacitracin -) 1 applic TP BID [facility] Last Admin: 09/08/20 10:21 Dose: 1 applic Documented by: Famotidine (Acid Supply And Distribution Manager) 10 mg PO DAILY [facility] Last Admin: 09/08/20 10:21 Dose: 10 mg Documented by: Heparin Sodium (Porcine) (Heparin -) 5,000 unit SQ BID [facility] Last Admin: 09/08/20 10:21 Dose: 5,000 unit Documented by: Lactobacillus Acidophilus (Bacid -) 1 tab PO DAILY [facility] Last Admin: 09/08/20 10:21 Dose: 1 tab Documented by: Metoprolol Succinate (Toprol Xl -) 50 mg PO DAILY [facility] Last Admin: 09/08/20 10:20 Dose: 50 mg Documented by: Ondansetron HCl (Zofran Odt -) 4 mg SL Q8H PRN PRN Reason: NAUSEA Last Admin: 09/08/20 10:21 Dose: 4 mg Documented by: Sodium Bicarbonate (Sodium Bicarbonate -) 650 mg PO DAILY [facility] Last Admin: 09/08/20 10:20 Dose: 650 mg Documented by: - Objective Vital Signs: Vital Signs Temperature 98.2 F 09/08/20 10:18 Pulse Rate 93 H 09/08/20 10:18 Respiratory Rate 18 09/08/20 10:18 Blood Pressure 122/64 09/08/20 10:18 O2 Sat by Pulse Oximetry (%) 97 09/08/20 10:18 Constitutional: Yes: No Distress Neck: Yes: Supple Respiratory: Yes: Regular, Diminished Gastrointestinal: Yes: Soft Extremities: No: Cyanosis Edema: No Labs: CBC, BMP 09/08/20 07:15 09/08/20 07:15 Assessment/Plan 59 year old woman with history of lung cancer on chemotherapy, hypertension, hyperlipidemia who presents with abnormal renal function. 1. Acute kidney injury 2. Lung cancer 3. Sepsis/Pneumonia 4. Hypertension 5. Hyperlipidemia Renal function improved but not yet at baseline. FeNa was 2.3% (consistent with tubular injury) US showed no obstruction but echogenicity consistent with CKD UA showed 24 WBC, eosinophils negative no peripheral eosinophilia noted. Would continue to hold antibiotics for now, specifically PCN based antibiotics. off IVF due to pleural effusion oral intake as tolerated Zofran PRN IR/CT surgery evaluation pending KLAUDIA negative, ANCA pending, LDH WNL, Haptolgobin slightly elevated. Trend renal function daily. There is no acute need for renal replacement therapy. If renal function does not show significant improvement in next 48 hours may require biopsy for definitive diagnosis Darryl Vazquez DO
--- NOTE | 2020-09-08 12:41 | PN ---
Progress Note (short form) - Note Progress Note: Resting in NAD. Reports breathing feels stable. Less N/V and LBMs. Intake & Output 09/05/20 09/06/20 09/07/20 09/08/20 23:59 23:59 23:59 23:59 Intake Total 2353 1391 250 Balance 2353 1391 250 Weight 90 lb 90 lb Last Vital Signs Temp Pulse Resp BP Pulse Ox 98.2 F 93 H 18 122/64 97 09/08/20 10:18 09/08/20 10:18 09/08/20 10:18 09/08/20 10:18 09/08/20 10:18 Active Medications Acetaminophen (Tylenol -) 500 mg PO Q6H PRN PRN Reason: PAIN LEVEL 1-5 Aspirin (Asa -) 81 mg PO DAILY [facility] Last Admin: 09/08/20 10:21 Dose: 81 mg Documented by: Atorvastatin Calcium (Lipitor -) 10 mg PO HS [facility] Last Admin: 09/07/20 22:00 Dose: 10 mg Documented by: Bacitracin (Bacitracin -) 1 applic TP BID [facility] Last Admin: 09/08/20 10:21 Dose: 1 applic Documented by: Famotidine (Acid Informatics Consultant) 10 mg PO DAILY [facility] Last Admin: 09/08/20 10:21 Dose: 10 mg Documented by: Heparin Sodium (Porcine) (Heparin -) 5,000 unit SQ BID [facility] Last Admin: 09/08/20 10:21 Dose: 5,000 unit Documented by: Lactobacillus Acidophilus (Bacid -) 1 tab PO DAILY [facility] Last Admin: 09/08/20 10:21 Dose: 1 tab Documented by: Metoprolol Succinate (Toprol Xl -) 50 mg PO DAILY [facility] Last Admin: 09/08/20 10:20 Dose: 50 mg Documented by: Ondansetron HCl (Zofran Odt -) 4 mg SL Q8H PRN PRN Reason: NAUSEA Last Admin: 09/08/20 10:21 Dose: 4 mg Documented by: Sodium Bicarbonate (Sodium Bicarbonate -) 650 mg PO DAILY [facility] Last Admin: 09/08/20 10:20 Dose: 650 mg Documented by: Constitutional: Yes: Calm Eyes: Yes: EOM Intact HENT: Yes: Normocephalic Neck: Yes: Trachea Midline Cardiovascular: Yes: Regular Rate and Rhythm Respiratory: Yes: Diminished (left base up 1/2), Dullness, Other (left base up 1/2 lung field) Gastrointestinal: Yes: Normal Bowel Sounds Edema: No Labs: Laboratory Results - last 24 hr 09/05/20 09/08/20 09/08/20 19:15 07:15 07:15 WBC 7.9 RBC 3.14 L Hgb 8.0 L Hct 25.1 L MCV 79.9 L MCH 25.3 L MCHC 31.7 L RDW 15.5 Plt Count 272 MPV 10.1 Absolute Neuts (auto) 6.5 Neutrophils % 82.0 Lymphocytes % 7.8 L Monocytes % 8.3 Eosinophils % 1.5 Basophils % 0.4 Nucleated RBC % 0 Sodium Potassium Chloride Carbon Dioxide Anion Gap BUN Creatinine Est GFR (CKD-EPI)AfAm Est GFR (CKD-EPI)NonAf Random Glucose Calcium Phosphorus Magnesium Total Bilirubin AST ALT Alkaline Phosphatase Total Protein Albumin Urine Eosinophils None seen Random Vancomycin 18.6 09/08/20 07:15 WBC RBC Hgb Hct MCV MCH MCHC RDW Plt Count MPV Absolute Neuts (auto) Neutrophils % Lymphocytes % Monocytes % Eosinophils % Basophils % Nucleated RBC % Sodium 143 Potassium 4.4 Chloride 114 H Carbon Dioxide 18 L Anion Gap 11 BUN 38.8 H Creatinine 2.1 H Est GFR (CKD-EPI)AfAm 28.92 Est GFR (CKD-EPI)NonAf 24.95 Random Glucose 73 L Calcium 7.1 L Phosphorus 3.5 Magnesium 2.3 Total Bilirubin 0.3 AST 12 L ALT 8 L Alkaline Phosphatase 80 Total Protein 5.1 L Albumin 1.9 L Urine Eosinophils Random Vancomycin Imaging - Results Chest X-ray: Report Reviewed, Image Reviewed Problem List - Problems (1) Lung cancer Code(s): C34.90 - MALIGNANT NEOPLASM OF UNSP PART OF UNSP BRONCHUS OR LUNG Qualifiers: Laterality: unspecified laterality Lung location: unspecified part of lung Qualified Code(s): C34.90 - Malignant neoplasm of unspecified part of unspecified bronchus or lung (2) Malignant pleural effusion Code(s): J91.0 - MALIGNANT PLEURAL EFFUSION (3) Trapped lung Code(s): J98.19 - OTHER PULMONARY COLLAPSE (4) Anxiety Code(s): F41.9 - ANXIETY DISORDER, UNSPECIFIED (5) Soft tissue infection Code(s): L08.9 - LOCAL INFECTION OF THE SKIN AND SUBCUTANEOUS TISSUE, UNSP Assessment/Plan EMPYEMA LEFT PLEURAL SPACE S/P DRAINAGE NOW WITH CONTINUED DENSITY IR and Thoracic surgery evaluation pending : To discuss further plans : she is currently stable Supplemental O2 as needed Pro-biotic VTE prophylaxis ABX per ID Dr Damon
--- NOTE | 2020-09-08 13:57 | PN ---
Progress Note, Physician History of Present Illness: Pt is alert, ambulating, afebrile. States she feels weak but denies SOB currently and has no abd pain/diarrhea. - Current Medication List Current Medications: Active Medications Acetaminophen (Tylenol -) 500 mg PO Q6H PRN PRN Reason: PAIN LEVEL 1-5 Aspirin (Asa -) 81 mg PO DAILY [facility] Last Admin: 09/08/20 10:21 Dose: 81 mg Documented by: Atorvastatin Calcium (Lipitor -) 10 mg PO HS [facility] Last Admin: 09/07/20 22:00 Dose: 10 mg Documented by: Bacitracin (Bacitracin -) 1 applic TP BID [facility] Last Admin: 09/08/20 10:21 Dose: 1 applic Documented by: Famotidine (Acid Inserter Operator) 10 mg PO DAILY [facility] Last Admin: 09/08/20 10:21 Dose: 10 mg Documented by: Heparin Sodium (Porcine) (Heparin -) 5,000 unit SQ BID [facility] Last Admin: 09/08/20 10:21 Dose: 5,000 unit Documented by: Lactobacillus Acidophilus (Bacid -) 1 tab PO DAILY [facility] Last Admin: 09/08/20 10:21 Dose: 1 tab Documented by: Metoprolol Succinate (Toprol Xl -) 50 mg PO DAILY [facility] Last Admin: 09/08/20 10:20 Dose: 50 mg Documented by: Ondansetron HCl (Zofran Odt -) 4 mg SL Q8H PRN PRN Reason: NAUSEA Last Admin: 09/08/20 10:21 Dose: 4 mg Documented by: Sodium Bicarbonate (Sodium Bicarbonate -) 650 mg PO DAILY [facility] Last Admin: 09/08/20 10:20 Dose: 650 mg Documented by: - Objective Vital Signs: Vital Signs Temperature 98.2 F 09/08/20 10:18 Pulse Rate 93 H 09/08/20 10:18 Respiratory Rate 18 09/08/20 10:18 Blood Pressure 122/64 09/08/20 10:18 O2 Sat by Pulse Oximetry (%) 97 09/08/20 10:18 Constitutional: Yes: No Distress, Calm Cardiovascular: Yes: Regular Rate and Rhythm Respiratory: Yes: Diminished (Lt base) Gastrointestinal: Yes: Normal Bowel Sounds, Soft Genitourinary: Yes: WNL Wound/Incision: Yes: Other (Lt lateral chest wall wound with less purulence) Neurological: Yes: Alert, Oriented Labs: CBC, BMP 09/08/20 07:15 09/08/20 07:15 Microbiology 09/06/20 12:10 Chest Gram Stain - Final 09/06/20 12:10 Chest Wound Culture - Final NO AEROBIC OR ANAEROBIC GROWTH OBTAINED. 09/06/20 14:20 Drainage (Swab) Wound Culture - Preliminary NO GROWTH OBTAINED AFTER 24 HOURS INCUBATION, REINCUBATED. Problem List - Problems (1) Lung cancer Code(s): C34.90 - MALIGNANT NEOPLASM OF UNSP PART OF UNSP BRONCHUS OR LUNG Qualifiers: Laterality: unspecified laterality Lung location: unspecified part of lung Qualified Code(s): C34.90 - Malignant neoplasm of unspecified part of u nspecified bronchus or lung (2) Malignant pleural effusion Code(s): J91.0 - MALIGNANT PLEURAL EFFUSION (4) Trapped lung Code(s): J98.19 - OTHER PULMONARY COLLAPSE (5) Soft tissue infection Code(s): L08.9 - LOCAL INFECTION OF THE SKIN AND SUBCUTANEOUS TISSUE, UNSP Assessment/Plan Wound infection/ cellulitis Recent Empyema s/p chest tube YOUSUF Lung CA with mets Trapped Lung -- previous history of MRSA from chest cultures, latest wound cultures so far without growth, follow up final results -- Vancomycin dose given 2 days ago - random level today 18, will continue to hold and repeat tomorrow, monitor renal function closely -- Zosyn held -- CT/chest US results noted: loculated Lt lung collection, chest wall SQ fluid -- Thoracic surgery/IR eval -- Serology and RPR + without known history Syphilis and pt denies treatment in the past - will consider treatment for latent infection once stable
--- NOTE | 2020-09-08 17:44 | PN.HO ---
Progress Note (short form) - Note Progress Note: S: Doing better now. Not having nausea and vomiting. O: Last Vital Signs Temp Pulse Resp BP Pulse Ox 98.2 F 93 H 18 122/64 97 09/08/20 10:18 09/08/20 10:18 09/08/20 10:18 09/08/20 10:18 09/08/20 10:18 Gen: NAD HEENT: MMM CVS: S1, S2 Lungs: limited/good air entry ant L Abdomen: Soft, NT, ND Skin: Bandage wet Ext: No edema Neuro: Non focal. Moves all extremities Current Medications Generic Name Dose Route Start Last Admin Trade Name Freq PRN Reason Stop Dose Admin Acetaminophen 500 mg 09/05/20 16:04 Tylenol - PO Q6H PRN PAIN LEVEL 1-5 Aspirin 81 mg 09/06/20 10:00 09/08/20 10:21 Asa - PO 81 mg DAILY MELBA Administration Atorvastatin Calcium 10 mg 09/05/20 22:00 09/07/20 22:00 Lipitor - PO 10 mg HS MELBA Administration Bacitracin 1 applic 09/06/20 22:00 09/08/20 10:21 Bacitracin - TP 1 applic BID MELBA Administration Famotidine 10 mg 09/07/20 10:00 09/08/20 10:21 Acid Service Line Layer PO 10 mg DAILY MELBA Administration Heparin Sodium (Porcine) 5,000 unit 09/05/20 22:00 09/08/20 10:21 Heparin - SQ 5,000 unit BID MELBA Administration Lactobacillus Acidophilus 1 tab 09/07/20 13:30 09/08/20 10:21 Bacid - PO 1 tab DAILY MELBA Administration Metoprolol Succinate 50 mg 09/06/20 10:00 09/08/20 10:20 Toprol Xl - PO 50 mg DAILY MELBA Administration Ondansetron HCl 4 mg 09/07/20 15:30 09/08/20 10:21 Zofran Odt - SL 4 mg Q8H PRN Administration NAUSEA Sodium Bicarbonate 650 mg 09/07/20 15:30 09/08/20 10:20 Sodium Bicarbonate - PO 650 mg DAILY MELBA Administration Assessment and Plan: 59 y/o lady with 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 Cr now is 2.1. [facility] nephrology input 2) CT Chest with slightly increased L pleural effusion. R pleural effusion 3) CT Surgery consult pending. 4) [facility] Pulmonary input. 5) EGFR+ Stage IV Lung Adenocarcinoma. Holding Osimertinib.
--- NOTE | 2020-09-08 18:14 | PN ---
Teaching Attending Note Name of Resident: Eliezer Jeffrey ATTENDING PHYSICIAN STATEMENT I saw and evaluated the patient. I reviewed the resident's note and discussed the case with the resident. I agree with the resident's findings and plan as documented. SUBJECTIVE: Patient is feeling better. No fever or chills OBJECTIVE: Vital Signs Temperature 98.2 F 09/08/20 10:18 Pulse Rate 93 H 09/08/20 10:18 Respiratory Rate 18 09/08/20 10:18 Blood Pressure 122/64 09/08/20 10:18 O2 Sat by Pulse Oximetry (%) 97 09/08/20 10:18 PE:per resident's note left post. thoracic draining serosanginoius. CBCD WBC 7.9 K/mm3 (4.0-10.0) 09/08/20 07:15 RBC 3.14 M/mm3 (3.60-5.2) L 09/08/20 07:15 Hgb 8.0 GM/dL (10.7-15.3) L 09/08/20 07:15 Hct 25.1 % (32.4-45.2) L 09/08/20 07:15 MCV 79.9 fl (80-96) L 09/08/20 07:15 MCHC 31.7 g/dl (32.0-36.0) L 09/08/20 07:15 RDW 15.5 % (11.6-15.6) 09/08/20 07:15 Plt Count 272 K/MM3 (134-434) 09/08/20 07:15 MPV 10.1 fl (7.5-11.1) 09/08/20 07:15 CMP Sodium 143 mmol/L (136-145) 09/08/20 07:15 Potassium 4.4 mmol/L (3.5-5.1) 09/08/20 07:15 Chloride 114 mmol/L (98-107) H 09/08/20 07:15 Carbon Dioxide 18 mmol/L (21-32) L 09/08/20 07:15 Anion Gap 11 MMOL/L (8-16) 09/08/20 07:15 BUN 38.8 mg/dL (7-18) H 09/08/20 07:15 Creatinine 2.1 mg/dL (0.55-1.3) H 09/08/20 07:15 Random Glucose 73 mg/dL (74-106) L 09/08/20 07:15 Calcium 7.1 mg/dL (8.5-10.1) L 09/08/20 07:15 Total Bilirubin 0.3 mg/dL (0.2-1) 09/08/20 07:15 AST 12 U/L (15-37) L 09/08/20 07:15 ALT 8 U/L (13-61) L 09/08/20 07:15 Alkaline Phosphatase 80 U/L (45-117) 09/08/20 07:15 Total Protein 5.1 g/dl (6.4-8.2) L 09/08/20 07:15 Albumin 1.9 g/dl (3.4-5.0) L 09/08/20 07:15 CARDIAC ENZYMES Creatine Kinase 115 U/L (26-192) 09/05/20 14:22 Current Medications Generic Name Dose Route Start Last Admin Trade Name Freq PRN Reason Stop Dose Admin Acetaminophen 500 mg 09/05/20 16:04 Tylenol - PO Q6H PRN PAIN LEVEL 1-5 Aspirin 81 mg 09/06/20 10:00 09/08/20 10:21 Asa - PO 81 mg DAILY MELBA Administration Atorvastatin Calcium 10 mg 09/05/20 22:00 09/07/20 22:00 Lipitor - PO 10 mg HS MELBA Administration Bacitracin 1 applic 09/06/20 22:00 09/08/20 10:21 Bacitracin - TP 1 applic BID MELBA Administration Famotidine 10 mg 09/07/20 10:00 09/08/20 10:21 Acid Chief Hydroelectric Station Operator PO 10 mg DAILY MELBA Administration Heparin Sodium (Porcine) 5,000 unit 09/05/20 22:00 09/08/20 10:21 Heparin - SQ 5,000 unit BID MELBA Administration Lactobacillus Acidophilus 1 tab 09/07/20 13:30 09/08/20 10:21 Bacid - PO 1 tab DAILY MELBA Administration Metoprolol Succinate 50 mg 09/06/20 10:00 09/08/20 10:20 Toprol Xl - PO 50 mg DAILY MELBA Administration Ondansetron HCl 4 mg 09/07/20 15:30 09/08/20 10:21 Zofran Odt - SL 4 mg Q8H PRN Administration NAUSEA Sodium Bicarbonate 650 mg 09/07/20 15:30 09/08/20 10:20 Sodium Bicarbonate - PO 650 mg DAILY MELBA Administration Home Medications Medication Instructions Recorded Atorvastatin Ca [Lipitor] 10 mg PO HS tablet 04/09/14 Cholecalciferol (Vitamin D3) 2,000 units PO DAILY 06/14/17 [Vitamin D3 -] Aspirin 81 mg PO DAILY 02/21/18 Metoprolol Succinate 50 mg PO DAILY 06/10/20 Acetaminophen [Tylenol] 500 mg PO QID PRN 08/17/20 Ascorbate Calcium [Vitamin C] 500 mg PO BID 08/17/20 Omeprazole 20 mg PO DAILY 08/17/20 Prochlorperazine Maleate 10 mg PO 09/06/20 [Compazine] Microbiology 09/06/20 14:20 Drainage (Swab) Gram Stain - Final 09/06/20 14:20 Drainage (Swab) Wound Culture - Preliminary NO GROWTH OBTAINED AFTER 24 HOURS INCUBATION, REINCUBATED. 09/06/20 12:10 Chest Gram Stain - Final 09/06/20 12:10 Chest Wound Culture - Final NO AEROBIC OR ANAEROBIC GROWTH OBTAINED. 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 #Acute kidney injury: creatinine is 2.0-->2.1 today continue to trend and continue IVF #Non small cell lung cancer ;hem/onc dr. Guallpa, Thoracic surgery consult for evaluation of possible malignant effusion, increased left pleural effusion, will check with pulm/thoracic sx in am #Hx of HTN: continue metoprolol #Hx of HLD: continue Statin #Hx of GERD continue PPi #EGFR+ Stage IV Lung Adenocarcinoma. Holding Osimertinib as per onc DVt px: Heparin sq
[2020-09-08] MEDS: ATORVASTATIN CA 10 MG TABLET (FP) PO SCH (21:16)
[2020-09-09 06:54] LABS: BASO % 0.4 % (0-2.0); EOS % 1.5 % (0-4.5); HEMATOCRIT 21.6 % (32.4-45.2); HEMOGLOBIN 7.1 GM/dL (10.7-15.3); LYMPH % 9.1 % (8-40); MCH 25.9 pg (25.7-33.7); MCHC 32.8 g/dl (32.0-36.0); MEAN CELL VOLUME 79.2 fl (80-96); MONO % 9.1 % (3.8-10.2); NEUT % 79.9 % (42.8-82.8); PLATELET COUNT 263 K/MM3 (134-434); RBC 2.72 M/mm3 (3.60-5.2); RDW 15.8 % (11.6-15.6); WHITE BLOOD COUNT 7.8 K/mm3 (4.0-10.0)
[2020-09-09 07:27] LABS: BLOOD UREA NITROGEN 31.3 mg/dL (7-18); CALCIUM 8.2 mg/dL (8.5-10.1); CREATININE 1.9 mg/dL (0.55-1.3); PHOSPHOROUS 3.5 mg/dL (2.5-4.9); POTASSIUM 4.3 mmol/L (3.5-5.1)
[2020-09-09] MEDS: HEPARIN NA (PORCINE) 5,000 UNITS/ML 1ML VIAL SQ SCH ×2 (09:06→21:01)
[2020-09-09] MEDS: SODIUM BICARBONATE 650 MG TABLET PO SCH (09:06)
[2020-09-09] MEDS: FAMOTIDINE 10 MG TABLET PO SCH (09:07)
[2020-09-09] MEDS: LACTOBACILLUS ACIDOPHILUS 1 TABLET PO SCH (09:07)
[2020-09-09] MEDS: ASPIRIN 81 MG CHEWABLE TABLETS PO SCH (09:07)
[2020-09-09] MEDS: BACITRACIN 15 GM TUBE TOPICAL OINTMENT TP SCH ×2 (09:12→21:01)
--- NOTE | 2020-09-09 09:38 | PN ---
Teaching Attending Note Name of Resident: Wilfredo Roa ATTENDING PHYSICIAN STATEMENT I saw and evaluated the patient. I reviewed the resident's note and discussed the case with the resident. I agree with the resident's findings and plan as documented. SUBJECTIVE: Patient is sitting on the bed comfortably with NAD. OBJECTIVE: Vital Signs Temperature 98.5 F 09/09/20 08:42 Pulse Rate 92 H 09/09/20 08:42 Respiratory Rate 18 09/09/20 08:42 Blood Pressure 113/61 09/09/20 08:42 O2 Sat by Pulse Oximetry (%) 93 L 09/09/20 08:42 PE: per resident's note CBCD WBC 7.8 K/mm3 (4.0-10.0) 09/09/20 06:30 RBC 2.72 M/mm3 (3.60-5.2) L 09/09/20 06:30 Hgb 7.1 GM/dL (10.7-15.3) L 09/09/20 06:30 Hct 21.6 % (32.4-45.2) L 09/09/20 06:30 MCV 79.2 fl (80-96) L 09/09/20 06:30 MCHC 32.8 g/dl (32.0-36.0) 09/09/20 06:30 RDW 15.8 % (11.6-15.6) H 09/09/20 06:30 Plt Count 263 K/MM3 (134-434) 09/09/20 06:30 MPV 10.0 fl (7.5-11.1) 09/09/20 06:30 CMP Sodium 144 mmol/L (136-145) 09/09/20 06:30 Potassium 4.3 mmol/L (3.5-5.1) 09/09/20 06:30 Chloride 114 mmol/L (98-107) H 09/09/20 06:30 Carbon Dioxide 21 mmol/L (21-32) 09/09/20 06:30 Anion Gap 9 MMOL/L (8-16) 09/09/20 06:30 BUN 31.3 mg/dL (7-18) H 09/09/20 06:30 Creatinine 1.9 mg/dL (0.55-1.3) H 09/09/20 06:30 Random Glucose 84 mg/dL (74-106) 09/09/20 06:30 Calcium 8.2 mg/dL (8.5-10.1) L 09/09/20 06:30 Total Bilirubin 0.3 mg/dL (0.2-1) 09/08/20 07:15 AST 12 U/L (15-37) L 09/08/20 07:15 ALT 8 U/L (13-61) L 09/08/20 07:15 Alkaline Phosphatase 80 U/L (45-117) 09/08/20 07:15 Total Protein 5.1 g/dl (6.4-8.2) L 09/08/20 07:15 Albumin 1.9 g/dl (3.4-5.0) L 09/08/20 07:15 CARDIAC ENZYMES Creatine Kinase 115 U/L (26-192) 09/05/20 14:22 Current Medications Generic Name Dose Route Start Last Admin Trade Name Freq PRN Reason Stop Dose Admin Acetaminophen 500 mg 09/05/20 16:04 Tylenol - PO Q6H PRN PAIN LEVEL 1-5 Aspirin 81 mg 09/06/20 10:00 09/09/20 09:07 Asa - PO 81 mg DAILY MELBA Administration Atorvastatin Calcium 10 mg 09/05/20 22:00 09/08/20 21:16 Lipitor - PO 10 mg HS MELBA Administration Bacitracin 1 applic 09/06/20 22:00 09/09/20 09:12 Bacitracin - TP 1 applic BID MELBA Administration Famotidine 10 mg 09/07/20 10:00 09/09/20 09:07 Acid Sales Development Executive PO 10 mg DAILY MELBA Administration Heparin Sodium (Porcine) 5,000 unit 09/05/20 22:00 09/09/20 09:06 Heparin - SQ 5,000 unit BID MELBA Administration Lactobacillus Acidophilus 1 tab 09/07/20 13:30 09/09/20 09:07 Bacid - PO 1 tab DAILY MELBA Administration Metoprolol Succinate 50 mg 09/06/20 10:00 09/09/20 09:07 Toprol Xl - PO 50 mg DAILY MELBA Administration Ondansetron HCl 4 mg 09/07/20 15:30 09/08/20 10:21 Zofran Odt - SL 4 mg Q8H PRN Administration NAUSEA Sodium Bicarbonate 650 mg 09/07/20 15:30 09/09/20 09:06 Sodium Bicarbonate - PO 650 mg DAILY MELBA Administration Home Medications Medication Instructions Recorded Atorvastatin Ca [Lipitor] 10 mg PO HS tablet 04/09/14 Cholecalciferol (Vitamin D3) 2,000 units PO DAILY 06/14/17 [Vitamin D3 -] Aspirin 81 mg PO DAILY 02/21/18 Metoprolol Succinate 50 mg PO DAILY 06/10/20 Acetaminophen [Tylenol] 500 mg PO QID PRN 08/17/20 Ascorbate Calcium [Vitamin C] 500 mg PO BID 08/17/20 Omeprazole 20 mg PO DAILY 08/17/20 Prochlorperazine Maleate 10 mg PO 09/06/20 [Compazine] Microbiology 09/06/20 14:20 Drainage (Swab) Gram Stain - Final 09/06/20 14:20 Drainage (Swab) Wound Culture - Final NO GROWTH AFTER 48 HOURS INCUBATION 09/06/20 12:10 Chest Gram Stain - Final 09/06/20 12:10 Chest Wound Culture - Final NO AEROBIC OR ANAEROBIC GROWTH OBTAINED. 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 #Acute kidney injury: creatinine is 2.0-->2.1-->1.9 today continue to trend and continue IVF #Non small cell lung cancer ;hem/onc dr. Guallpa, Thoracic surgery consult for evaluation of possible malignant effusion, increased left pleural effusion, will check with pulm/thoracic sx is on the case is arranging to have I&D done either by him or by Dr Pedraza. #Hx of HTN: continue metoprolol #Hx of HLD: continue Statin #Hx of GERD continue PPi #EGFR+ Stage IV Lung Adenocarcinoma. Holding Osimertinib as per onc DVt px: Heparin sq
--- NOTE | 2020-09-09 10:12 | PN ---
Progress Note, Physician History of Present Illness: stable no new issues - Current Medication List Current Medications: Active Medications Acetaminophen (Tylenol -) 500 mg PO Q6H PRN PRN Reason: PAIN LEVEL 1-5 Aspirin (Asa -) 81 mg PO DAILY [facility] Last Admin: 09/09/20 09:07 Dose: 81 mg Documented by: Atorvastatin Calcium (Lipitor -) 10 mg PO HS [facility] Last Admin: 09/08/20 21:16 Dose: 10 mg Documented by: Bacitracin (Bacitracin -) 1 applic TP BID [facility] Last Admin: 09/09/20 09:12 Dose: 1 applic Documented by: Famotidine (Acid Supervisor Gas Meter Repair) 10 mg PO DAILY [facility] Last Admin: 09/09/20 09:07 Dose: 10 mg Documented by: Heparin Sodium (Porcine) (Heparin -) 5,000 unit SQ BID [facility] Last Admin: 09/09/20 09:06 Dose: 5,000 unit Documented by: Lactobacillus Acidophilus (Bacid -) 1 tab PO DAILY [facility] Last Admin: 09/09/20 09:07 Dose: 1 tab Documented by: Metoprolol Succinate (Toprol Xl -) 50 mg PO DAILY [facility] Last Admin: 09/09/20 09:07 Dose: 50 mg Documented by: Ondansetron HCl (Zofran Odt -) 4 mg SL Q8H PRN PRN Reason: NAUSEA Last Admin: 09/08/20 10:21 Dose: 4 mg Documented by: Sodium Bicarbonate (Sodium Bicarbonate -) 650 mg PO DAILY [facility] Last Admin: 09/09/20 09:06 Dose: 650 mg Documented by: - Objective Vital Signs: Vital Signs Temperature 98.5 F 09/09/20 08:42 Pulse Rate 92 H 09/09/20 08:42 Respiratory Rate 18 09/09/20 08:42 Blood Pressure 113/61 09/09/20 08:42 O2 Sat by Pulse Oximetry (%) 93 L 09/09/20 08:42 Constitutional: Yes: No Distress, Calm Cardiovascular: Yes: S1, S2 Respiratory: Yes: Regular, CTA Bilaterally Gastrointestinal: Yes: Normal Bowel Sounds, Soft Musculoskeletal: Yes: WNL Extremities: Yes: WNL Neurological: Yes: Alert, Oriented Psychiatric: Yes: Alert, Oriented Labs: CBC, BMP 09/09/20 06:30 09/09/20 06:30 Assessment/Plan Problem List - Problems (1) Lung cancer Code(s): C34.90 - MALIGNANT NEOPLASM OF UNSP PART OF UNSP BRONCHUS OR LUNG Qualifiers: Laterality: unspecified laterality Lung location: unspecified part of lung Qualified Code(s): C34.90 - Malignant neoplasm of unspecified part of unspeci fied bronchus or lung (2) Malignant pleural effusion Code(s): J91.0 - MALIGNANT PLEURAL EFFUSION (4) Trapped lung Code(s): J98.19 - OTHER PULMONARY COLLAPSE (5) Soft tissue infection Code(s): L08.9 - LOCAL INFECTION OF THE SKIN AND SUBCUTANEOUS TISSUE, UNSP Assessment/Plan Wound infection/ cellulitis Recent Empyema s/p chest tube YOUSUF Lung CA with mets Trapped Lung plan abx will need drainage
--- NOTE | 2020-09-09 10:19 | PN ---
Physical Exam: SUBJECTIVE: Patient seen and examined this AM. No new complaints. OBJECTIVE: Vital Signs Period Temp Pulse Resp BP Sys/Gonzalez Pulse Ox Last 24 Hr 98.0 F-98.5 F 83-93 18-18 105-122/55-64 92-97 GENERAL: A&Ox3, NAD HEAD: NCAT EYES: PERRL, EOMI ENT: MMM NECK: Supple LUNGS: DIminished breath sounds at the bases HEART: Regular rate and rhythm, S1, S2 without murmur ABDOMEN: Soft, nontender, nondistended, + bowel sounds, no guarding EXTREMITIES: no edema NEUROLOGICAL: Cranial nerves II through XII grossly intact. SKIN: Warm, dry. Left sided Chest wound with minimal drainaged, Dressing C/D/I without surrounding erythema Laboratory Last Values WBC 7.8 K/mm3 (4.0-10.0) 09/09/20 06:30 RBC 2.72 M/mm3 (3.60-5.2) L 09/09/20 06:30 Hgb 7.1 GM/dL (10.7-15.3) L 09/09/20 06:30 Hct 21.6 % (32.4-45.2) L 09/09/20 06:30 MCV 79.2 fl (80-96) L 09/09/20 06:30 MCH 25.9 pg (25.7-33.7) 09/09/20 06:30 MCHC 32.8 g/dl (32.0-36.0) 09/09/20 06:30 RDW 15.8 % (11.6-15.6) H 09/09/20 06:30 Plt Count 263 K/MM3 (134-434) 09/09/20 06:30 MPV 10.0 fl (7.5-11.1) 09/09/20 06:30 Absolute Neuts (auto) 6.3 K/mm3 (1.5-8.0) 09/09/20 06:30 Neutrophils % 79.9 % (42.8-82.8) 09/09/20 06:30 Lymphocytes % 9.1 % (8-40) 09/09/20 06:30 Monocytes % 9.1 % (3.8-10.2) 09/09/20 06:30 Eosinophils % 1.5 % (0-4.5) 09/09/20 06:30 Basophils % 0.4 % (0-2.0) 09/09/20 06:30 Nucleated RBC % 0 % (0-0) 09/09/20 06:30 Haptoglobin 550 mg/dL (33-346) H 09/05/20 14:22 Sodium 144 mmol/L (136-145) 09/09/20 06:30 Potassium 4.3 mmol/L (3.5-5.1) 09/09/20 06:30 Chloride 114 mmol/L (98-107) H 09/09/20 06:30 Carbon Dioxide 21 mmol/L (21-32) 09/09/20 06:30 Anion Gap 9 MMOL/L (8-16) 09/09/20 06:30 BUN 31.3 mg/dL (7-18) H 09/09/20 06:30 Creatinine 1.9 mg/dL (0.55-1.3) H 09/09/20 06:30 Est GFR (CKD-EPI)AfAm 32.64 09/09/20 06:30 Est GFR (CKD-EPI)NonAf 28.16 09/09/20 06:30 Random Glucose 84 mg/dL (74-106) 09/09/20 06:30 Calcium 8.2 mg/dL (8.5-10.1) L 09/09/20 06:30 Phosphorus 3.5 mg/dL (2.5-4.9) 09/09/20 06:30 Magnesium 2.3 mg/dL (1.8-2.4) 09/08/20 07:15 Total Bilirubin 0.3 mg/dL (0.2-1) 09/08/20 07:15 AST 12 U/L (15-37) L 09/08/20 07:15 ALT 8 U/L (13-61) L 09/08/20 07:15 Alkaline Phosphatase 80 U/L (45-117) 09/08/20 07:15 LD Total 233 U/L (84-246) 09/05/20 14:22 Creatine Kinase 115 U/L (26-192) 09/05/20 14:22 Total Protein 5.1 g/dl (6.4-8.2) L 09/08/20 07:15 Albumin 1.9 g/dl (3.4-5.0) L 09/08/20 07:15 Urine Color Yellow 09/05/20 19:15 Urine Appearance Cloudy 09/05/20 19:15 Urine pH 5.0 (5.0-8.0) 09/05/20 19:15 Ur Specific [place] 1.013 (1.010-1.035) 09/05/20 19:15 Urine Protein Trace (NEGATIVE) 09/05/20 19:15 Urine Glucose (UA) Negative (NEGATIVE) 09/05/20 19:15 Urine Ketones Negative (NEGATIVE) 09/05/20 19:15 Urine Blood Trace (NEGATIVE) 09/05/20 19:15 Urine Nitrite Negative (NEGATIVE) 09/05/20 19:15 Urine Bilirubin Negative (NEGATIVE) 09/05/20 19:15 Urine Urobilinogen 0.2 mg/dL (0.2-1.0) 09/05/20 19:15 Ur Leukocyte Esterase Negative (NEGATIVE) 09/05/20 19:15 Urine WBC (Auto) 24 /uL (0-25.8) 09/05/20 19:15 Urine Casts (Auto) 3 /uL (0-3.1) 09/05/20 19:15 U Epithel Cells (Auto) 15 /uL (0-25.1) 09/05/20 19:15 Urine Bacteria (Auto) 6 /uL (0-1359) 09/05/20 19:15 Urine Eosinophils None seen % (.) 09/05/20 19:15 Ur Random Creatinine 77.0 mg/dL (30-150) 09/05/20 19:15 U Random Total Protein 84.3 mg/dL (0-11.9) H 09/05/20 19:15 Ur Random Sodium 99 MMOL/L (40-220) 09/05/20 19:15 Ur Random Urea Nitrogn 485 mg/dL (350-1000) 09/05/20 19:15 Random Vancomycin 13.2 ug/ml (5-26) 09/09/20 06:30 KLAUDIA Screen Negative (.) 09/05/20 14:22 Tot Complement (CH50) > 60 U/mL (>41) 09/05/20 14:22 Syphilis Serology Reactive (NONREACTIVE) A* 09/05/20 20:49 RPR Titer Reactive 1:1 (NONREACTIVE) H 09/05/20 20:49 COVID-19 (ANGELIQUE) Not detected (Not Detected) 09/06/20 11:30 Hep A IgM Ab Confirm Negative (Negative) 09/05/20 20:49 Hep Bs Antigen Negative (Negative) 10 20:49 Hep B Core IgM Ab Negative (Negative) 10 20:49 Hepatitis C Ab (EIA) <0.1 s/co ratio (0.0-0.9) 10 20:49 Blood Type A POSITIVE 09/05/20 09:20 Antibody Screen Negative 09/05/20 09:20 ASSESSMENT/PLAN: 59 y/o F PMHx NSCLC (on Tagrisso) complicated by malignant Rt pleural effusion, HTN, HLD, GERD. Recently discharged from [facility] for Sepsis requiring chest tube placement having completed a course of ABx, presented for IV Hydration and admitted for persistent YOUSUF despite hydration. IV Hydration has since been stopped due to development of pleural effusions on imaging. #YOUSUF -FeNa 2.3% consisted with intrarenal causes -Nephrology evaluation appreciated, IV Hydration D/C'ed due to loculated left lung collections -CT Surgery evaluation pending -Encourage PO intake -Follow BMP, ANCA, CH50, SPEP -May require Renal Bx is renal function does not improve #NSCLC -Hold Osimertinib -DVT PPx #Anemia -Possibly Anemia of chonic inflamation vs Bone marrow suppression from Osimertinib use -Transfuse to keep Hgb > 7.0 Visit type - Emergency Visit Emergency Visit: Yes ED Registration Date: 09/05/20 Care time: The patient presented to the Emergency Department on the above date and was hospitalized for further evaluation of their emergent condition. - New Patient This patient is new to me today: Yes Date on this admission: 09/10/20 - Critical Care Critical Care patient: No - Discharge Referral Referred to [facility] Med P.C.: No ATTENDING PHYSICIAN STATEMENT I saw and evaluated the patient. I reviewed the resident's note and discussed the case with the resident. I agree with the resident's findings and plan as documented. SUBJECTIVE: OBJECTIVE: ASSESSMENT AND PLAN:
[2020-09-09] MEDS ORDERED: DEXTROSE 5%-WATER - 50 ML IVPB ONE ×2 (10:57→17:00)
[2020-09-09] MEDS ORDERED: PIPERACILLIN/TAZOBACTAM 2.25 GM VIAL IVPB ONE ×2 (10:57→17:00)
[2020-09-09] MEDS: PIPERACILLIN/TAZOB 2.25 GM 2.25 GM in DEXTROSE 5%-WATER - 50 ML IVPB SCH ×2 (11:05→17:10)
--- NOTE | 2020-09-09 12:15 | CONSULT ---
Consult - text type - Consultation Consultation Note: Thoracic Attending Consult: Pt seen and examine. Well-0known to me s/p LLLobectomy and adjuvant chemo. Subsequent malignant effusion s/p Pleur-x. Responded well to abx but drainage from wound still persists. No fevers or leukocytosis but admitted with diarrehea and renal failure. On exam, still purulent drainage. Had MRSA but wound culture negative. I recommend I/D with vac. Is also scheduled for IR drain. Will d/w . I have spent 30 minutes on this consultation with >50% involved in counseling and coordination of care including discussion with Dr. Montalvo.
--- NOTE | 2020-09-09 12:32 | PN ---
Progress Note (short form) - Note Progress Note: Resting in NAD. Reports breathing feels stable. Less N/V and LBMs. Intake & Output 09/06/20 09/07/20 09/08/20 09/09/20 23:59 23:59 23:59 23:59 Intake Total 2353 1391 1000 400 Balance 2353 1391 1000 400 Weight 90 lb Last Vital Signs Temp Pulse Resp BP Pulse Ox 98.5 F 92 H 18 113/61 93 L 09/09/20 08:42 09/09/20 08:42 09/09/20 08:42 09/09/20 08:42 09/09/20 08:42 Active Medications Acetaminophen (Tylenol -) 500 mg PO Q6H PRN PRN Reason: PAIN LEVEL 1-5 Aspirin (Asa -) 81 mg PO DAILY [facility] Last Admin: 09/09/20 09:07 Dose: 81 mg Documented by: Atorvastatin Calcium (Lipitor -) 10 mg PO HS [facility] Last Admin: 09/08/20 21:16 Dose: 10 mg Documented by: Bacitracin (Bacitracin -) 1 applic TP BID [facility] Last Admin: 09/09/20 09:12 Dose: 1 applic Documented by: Famotidine (Acid Claim Technician) 10 mg PO DAILY [facility] Last Admin: 09/09/20 09:07 Dose: 10 mg Documented by: Heparin Sodium (Porcine) (Heparin -) 5,000 unit SQ BID [facility] Last Admin: 09/09/20 09:06 Dose: 5,000 unit Documented by: Piperacillin Sod/Tazobactam (Sod 2.25 gm/ Dextrose) 50 mls @ 100 mls/hr IVPB Q8H-IV [facility]; Protocol Last Admin: 09/09/20 11:05 Dose: 100 mls/hr Documented by: Lactobacillus Acidophilus (Bacid -) 1 tab PO DAILY [facility] Last Admin: 09/09/20 09:07 Dose: 1 tab Documented by: Metoprolol Succinate (Toprol Xl -) 50 mg PO DAILY [facility] Last Admin: 09/09/20 09:07 Dose: 50 mg Documented by: Ondansetron HCl (Zofran Odt -) 4 mg SL Q8H PRN PRN Reason: NAUSEA Last Admin: 09/08/20 10:21 Dose: 4 mg Documented by: Sodium Bicarbonate (Sodium Bicarbonate -) 650 mg PO DAILY [facility] Last Admin: 09/09/20 09:06 Dose: 650 mg Documented by: Constitutional: Yes: Calm Eyes: Yes: EOM Intact HENT: Yes: Normocephalic Neck: Yes: Trachea Midline Cardiovascular: Yes: Regular Rate and Rhythm Respiratory: Yes: Diminished/Dullness at the left base Gastrointestinal: Yes: Normal Bowel Sounds Edema: No Labs: Laboratory Results - last 24 hr 09/09/20 09/09/20 09/09/20 06:30 06:30 06:30 WBC 7.8 RBC 2.72 L Hgb 7.1 L Hct 21.6 L MCV 79.2 L MCH 25.9 MCHC 32.8 RDW 15.8 H Plt Count 263 MPV 10.0 Absolute Neuts (auto) 6.3 Neutrophils % 79.9 Lymphocytes % 9.1 Monocytes % 9.1 Eosinophils % 1.5 Basophils % 0.4 Nucleated RBC % 0 Sodium 144 Potassium 4.3 Chloride 114 H Carbon Dioxide 21 Anion Gap 9 BUN 31.3 H Creatinine 1.9 H Est GFR (CKD-EPI)AfAm 32.64 Est GFR (CKD-EPI)NonAf 28.16 Random Glucose 84 Calcium 8.2 L Phosphorus 3.5 Random Vancomycin 13.2 Imaging - Results Chest X-ray: Report Reviewed, Image Reviewed Problem List - Problems (1) Lung cancer Code(s): C34.90 - MALIGNANT NEOPLASM OF UNSP PART OF UNSP BRONCHUS OR LUNG Qualifiers: Laterality: unspecified laterality Lung location: unspecified part of lung Qualified Code(s): C34.90 - Malignant neoplasm of unspecified part of unspecified bronchus or lung (2) Malignant pleural effusion Code(s): J91.0 - MALIGNANT PLEURAL EFFUSION (3) Trapped lung Code(s): J98.19 - OTHER PULMONARY COLLAPSE (4) Anxiety Code(s): F41.9 - ANXIETY DISORDER, UNSPECIFIED (5) Soft tissue infection Code(s): L08.9 - LOCAL INFECTION OF THE SKIN AND SUBCUTANEOUS TISSUE, UNSP Assessment/Plan R/O EMPYEMA LEFT PLEURAL SPACE S/P DRAINAGE NOW WITH CONTINUED DENSITY Left Sub-pulmonic collection D/W IR: Will attempt to needle decompress left subpulmonic space Supplemental O2 as needed Pro-biotic VTE prophylaxis ABX per ID Dr Damon
--- NOTE | 2020-09-09 12:45 | PN ---
Physical Exam: SUBJECTIVE: Patient seen and examined this morning, ptn displaying depressed mood 2/2 recurrent hospital stay. Counselled on need for potential drain/I&D of the area of fluid drainage on her back and informed of need for VNS. Denies any F/C, LUCIA, changes in vision, CP, SoB, N/V/D, changes in bowel/bladder habits. OBJECTIVE: Vital Signs Period Temp Pulse Resp BP Sys/Gonzalez Pulse Ox Last 24 Hr 98.0 F-98.5 F 83-92 18-18 105-113/55-61 92-93 GENERAL: Baseline minimal mental impairment. The patient is awake, alert, and fully oriented, in no acute distress. HEAD: Normal with no signs of trauma. EYES: PERRL, extraocular movements intact, sclera anicteric, conjunctiva clear. No ptosis. ENT: Ears normal, nares patent, oropharynx clear without exudates, moist mucous membranes. NECK: Trachea midline, full range of motion, supple. LUNGS: Breath sounds diminished on left side, clear to auscultation bilaterally, no wheezes, no crackles, no accessory muscle use. HEART: Regular rate and rhythm, S1, S2 without murmur, rub or gallop. CHEST: Minimal drainage compared to prior examination. Dressings applied. Area is swollen, without erythema, mildy tender to deep palpation ABDOMEN: Soft, nontender, nondistended, normoactive bowel sounds, no guarding EXTREMITIES: 2+ pulses, warm, well-perfused, no edema. NEUROLOGICAL: Normal speech, gait not observed. PSYCH: Normal mood, normal affect. SKIN: Warm, dry, normal turgor, no rashes or lesions except as noted above. Laboratory Results - last 24 hr CBC, BMP 09/09/20 06:30 09/09/20 06:30 Active Medications Generic Name Dose Route Start Last Admin Trade Name Freq PRN Reason Stop Dose Admin Acetaminophen 500 mg 09/05/20 16:04 Tylenol - PO Q6H PRN PAIN LEVEL 1-5 Aspirin 81 mg 09/06/20 10:00 09/09/20 09:07 Asa - PO 81 mg DAILY MELBA Administration Atorvastatin Calcium 10 mg 09/05/20 22:00 09/08/20 21:16 Lipitor - PO 10 mg HS MELBA Administration Bacitracin 1 applic 09/06/20 22:00 09/09/20 09:12 Bacitracin - TP 1 applic BID MELBA Administration Famotidine 10 mg 09/07/20 10:00 09/09/20 09:07 Acid Print Line Inspector PO 10 mg DAILY MELBA Administration Heparin Sodium (Porcine) 5,000 unit 09/05/20 22:00 09/09/20 09:06 Heparin - SQ 5,000 unit BID MELBA Administration Piperacillin Sod/Tazobactam 50 mls @ 100 mls/hr 09/09/20 10:30 09/09/20 11:05 Sod 2.25 gm/ Dextrose IVPB 100 mls/hr Q8H-IV MELBA Administration Protocol Lactobacillus Acidophilus 1 tab 09/07/20 13:30 09/09/20 09:07 Bacid - PO 1 tab DAILY MELBA Administration Metoprolol Succinate 50 mg 09/06/20 10:00 09/09/20 09:07 Toprol Xl - PO 50 mg DAILY MELBA Administration Ondansetron HCl 4 mg 09/07/20 15:30 09/08/20 10:21 Zofran Odt - SL 4 mg Q8H PRN Administration NAUSEA Sodium Bicarbonate 650 mg 09/07/20 15:30 09/09/20 09:06 Sodium Bicarbonate - PO 650 mg DAILY MELBA Administration ASSESSMENT/PLAN: 59 yo F w/ PMHx of NSCLC w/ EGFR mutation on Tagrisso recently admitted for persistent loculated pleural effusion following pleurex tube removal w/ dc on Clindamycin and Augmentin (ptn reports stopping medication on 09/04) presents fr om clinic 2/2 creatinine of 2.6 (baseline 0.9) which did not resolve with outpatient IV hydration. Admitted for YOUSUF and likely empyema. ACUTE KIDNEY INJURY: r/o PRE-RENAL vs INTRINSIC 2/2 ABX -Cr. 2.6 --> 2.2 --> 1.9 (baseline 0.9) -UA: Neg LE/Nit; WBC 24; Total protein 84 -Per Nephro: -LD: 233 -CK: 115 -Haptoglobin: 550 (mildly elevated) -FeNa 2.3% (consistent with tubular injury) -Hold antibiotics for now, specifically PCN based antibiotics -Hold IVF 2/2 pleural effusion -If Cr continues to downtrend, can defer renal biopsy -Follow serologies -KLAUDIA: Negative -c-ANCA: Pending -p-ANCA: Pending -Proteinase 3: Pending -Atypical p-ANCA: Pending -Myeloperoxidase Ab: Pending -Total Complement: >60 R/O RECURRENT EMPYEMA (LEFT PLEURAL SPACE) w/ CONTINUED DENSITY IN PTN W/ H ISTORY OF MALIGNANT EFFUSION -Afebrile, no WBC -CXR: New fluid at the right base with persistent fluid and atelectasis or infiltrate at the left base -FU CT Chest: Slightly increased size of a previously identified loculated left-sided pleural fluid collection. Mild left posterior basilar opacity which may represent atelectasis and/or infiltrate. Small right pleural effusion layering posteriorly which has mildly increased in size. -FU US Chest: Persistent loculated pleural fluid collection is seen within the left lower chest -Per Radiology: Spoke w/ Radiology department over phone, drain is on hold, ptn does not need to be NPO tonight. -Per Pulmonary: -Recommend needle decompress left subpulmonic space -Per Thoracic Surgery: -Recommend I/D with vac w/ d/w IR -Per ID: -Restart Zosyn - Now day 1 -c/w bacitracin dressings RECENT EPISODE OF DIARRHEA -c/w Bacid -Monitor electrolytes for repletion 2/2 GI loss HISTORY OF SYPHILLIS UNKNOWN IF TREATED -Syphylis Serology Reactive -Titer 1:1 -Hx of intellectual disability -Per ID: Will consider treatment for latent infection once ptn stable ANEMIA r/o CHRONIC DISEASE vs. BONE MARROW SUPPRESSION -Per Heme Onc: -History of NSCLC -Hold Osimertinib -Anemia 2/2 r/o chronic inflammation vs. bone marrow supression -Transfuse to keep Hbg > 7.0 -FOBT Negative HX OF NON SMALL CELL LUNG CANCER W/ EGFR MUTATION -Followed by Dr. Guallpa -Holding Osimertinib per Heme/Onc HISTORY OF HTN -Metoprolol 50mg Daily -Monitor VS HISTORY OF HYPERLIPIDEMIA -c/w Lipitor 10mg q daily -Hep A/B/C: Negative HISTORY OF GERD -c/w Famotidine 10mg FEN -No standing fluids -Lytes -Regular diet PPx -DVT: Heparin 5000 TID -GI: Famotidine 10mg qdaily DISPO -Continue to monitor on med/surg Visit type - Emergency Visit Emergency Visit: No - New Patient This patient is new to me today: No - Critical Care Critical Care patient: No - Discharge Referral Referred to [facility] Med P.C.: No ATTENDING PHYSICIAN STATEMENT I saw and evaluated the patient. I reviewed the resident's note and discussed the case with the resident. I agree with the resident's findings and plan as documented. SUBJECTIVE: OBJECTIVE: ASSESSMENT AND PLAN:
--- NOTE | 2020-09-09 12:46 | PN ---
Progress Note, Physician History of Present Illness: Seen and examined at the bedside awake and alert denies any fever, chills, shortness of breath, cough or chest pain making urine has some nausea periodically - Current Medication List Current Medications: Active Medications Acetaminophen (Tylenol -) 500 mg PO Q6H PRN PRN Reason: PAIN LEVEL 1-5 Aspirin (Asa -) 81 mg PO DAILY [facility] Last Admin: 09/09/20 09:07 Dose: 81 mg Documented by: Atorvastatin Calcium (Lipitor -) 10 mg PO HS [facility] Last Admin: 09/08/20 21:16 Dose: 10 mg Documented by: Bacitracin (Bacitracin -) 1 applic TP BID [facility] Last Admin: 09/09/20 09:12 Dose: 1 applic Documented by: Famotidine (Acid Delivery Merchandiser) 10 mg PO DAILY [facility] Last Admin: 09/09/20 09:07 Dose: 10 mg Documented by: Heparin Sodium (Porcine) (Heparin -) 5,000 unit SQ BID [facility] Last Admin: 09/09/20 09:06 Dose: 5,000 unit Documented by: Piperacillin Sod/Tazobactam (Sod 2.25 gm/ Dextrose) 50 mls @ 100 mls/hr IVPB Q8H-IV [facility]; Protocol Last Admin: 09/09/20 11:05 Dose: 100 mls/hr Documented by: Lactobacillus Acidophilus (Bacid -) 1 tab PO DAILY [facility] Last Admin: 09/09/20 09:07 Dose: 1 tab Documented by: Metoprolol Succinate (Toprol Xl -) 50 mg PO DAILY [facility] Last Admin: 09/09/20 09:07 Dose: 50 mg Documented by: Ondansetron HCl (Zofran Odt -) 4 mg SL Q8H PRN PRN Reason: NAUSEA Last Admin: 09/08/20 10:21 Dose: 4 mg Documented by: Sodium Bicarbonate (Sodium Bicarbonate -) 650 mg PO DAILY [facility] Last Admin: 09/09/20 09:06 Dose: 650 mg Documented by: - Objective Vital Signs: Vital Signs Temperature 98.5 F 09/09/20 08:42 Pulse Rate 92 H 09/09/20 08:42 Respiratory Rate 18 09/09/20 08:42 Blood Pressure 113/61 09/09/20 08:42 O2 Sat by Pulse Oximetry (%) 93 L 09/09/20 08:42 Constitutional: Yes: No Distress, Calm HENT: Yes: Atraumatic Neck: Yes: Supple Cardiovascular: Yes: Regular Rate and Rhythm Respiratory: Yes: Regular Gastrointestinal: Yes: Soft Extremities: No: Cyanosis Edema: No Neurological: Yes: Alert Labs: CBC, BMP 09/09/20 06:30 09/09/20 06:30 Assessment/Plan 59 year old woman with history of lung cancer on chemotherapy, hypertension, hyperlipidemia who presents with abnormal renal function. 1. Acute kidney injury from suspected AIN 2. Lung cancer 3. Sepsis/Pneumonia 4. Hypertension 5. Hyperlipidemia Renal function improved from Cr of 2.7 to 1.9 FeNa was 2.3% (consistent with tubular injury) US showed no obstruction but echogenicity consistent with CKD UA showed 24 WBC, eosinophils negative no peripheral eosinophilia noted. Cultures from this admission are negative, continue to hold PCN family antibiotics off IVF due to pleural effusion, planned for IR drain oral intake as tolerated Zofran PRN IR/CT surgery evaluation pending KLAUDIA negative, ANCA pending, LDH WNL, Haptolgobin slightly elevated. Trend renal function daily. There is no acute need for renal replacement therapy. If Cr continues to downtrend can defer renal biopsy and monitor clinical trend Darryl Vazquez DO
--- NOTE | 2020-09-09 14:38 | PN ---
Teaching Attending Note Name of Resident: Rosetta Lawrence ATTENDING PHYSICIAN STATEMENT I saw and evaluated the patient. I reviewed the resident's note and discussed the case with the resident. I agree with the resident's findings and plan as documented. 59yF with EGFR positive metastatic lung adeno with recent malignant pleural effusion requiring pleurex presents with diarrhea and YOUSUF. Her YOUSUF is slowly improving. Pleural effusion looks worse than prior admission; appreciate thoracic surgery input; plan for possible drain with IR given some drainage from the wound. Nephro is also advising us on her YOUSUF we well. Possible biopsy if YOUSUF does not resolve to baseline but slowly improving at this time. Tagrisso still on hold for now.
[2020-09-09 17:08] LABS: ATYPICAL pANCA <1:20 titer (Neg:<1:20); C-ANCA <1:20 titer (Neg:<1:20)
[2020-09-09] MEDS: ATORVASTATIN CA 10 MG TABLET (FP) PO SCH (21:01)
[2020-09-10 08:34] LABS: BASO % 0.4 % (0-2.0); EOS % 1.4 % (0-4.5); HEMATOCRIT 25.1 % (32.4-45.2); HEMOGLOBIN 8.2 GM/dL (10.7-15.3); LYMPH % 8.8 % (8-40); MCHC 32.5 g/dl (32.0-36.0); MEAN PLT VOLUME 10.3 fl (7.5-11.1); MONO % 8.7 % (3.8-10.2); NEUT % 80.7 % (42.8-82.8); PLATELET COUNT 304 K/MM3 (134-434); RBC 3.13 M/mm3 (3.60-5.2); RDW 16.5 % (11.6-15.6); WHITE BLOOD COUNT 9.1 K/mm3 (4.0-10.0)
[2020-09-10 08:56] LABS: BLOOD UREA NITROGEN 27.9 mg/dL (7-18); CALCIUM 8.2 mg/dL (8.5-10.1); CREATININE 1.9 mg/dL (0.55-1.3); PHOSPHOROUS 3.4 mg/dL (2.5-4.9); POTASSIUM 3.9 mmol/L (3.5-5.1)
[2020-09-10] MEDS: FAMOTIDINE 10 MG TABLET PO SCH (09:02)
[2020-09-10] MEDS: LACTOBACILLUS ACIDOPHILUS 1 TABLET PO SCH (09:02)
[2020-09-10] MEDS: HEPARIN NA (PORCINE) 5,000 UNITS/ML 1ML VIAL SQ SCH ×2 (09:03→21:09)
[2020-09-10] MEDS: SODIUM BICARBONATE 650 MG TABLET PO SCH (09:03)
[2020-09-10] MEDS: ASPIRIN 81 MG CHEWABLE TABLETS PO SCH (09:03)
[2020-09-10] MEDS: BACITRACIN 15 GM TUBE TOPICAL OINTMENT TP SCH ×2 (09:11→21:12)
--- NOTE | 2020-09-10 09:40 | PN ---
Teaching Attending Note Name of Resident: Nash Martinez ATTENDING PHYSICIAN STATEMENT I saw and evaluated the patient. I reviewed the resident's note and discussed the case with the resident. I agree with the resident's findings and plan as documented. SUBJECTIVE: Patient sitting in bed, eating breakfast. Has no complaints, wants to go home OBJECTIVE: Vital Signs Period Temp Pulse Resp BP Sys/Gonzalez Pulse Ox Last 24 Hr 98.2 F-98.5 F 87-93 18-20 121-130/63-69 93-97 Physical Exam as per resident note ASSESSMENT AND PLAN: 59 y/o F with Hx of HTN, HLD, GERD< Metastatic Non-Small Cell Lung CA, EGFR + Stage IV adenoCA on Tagrisso who presents with YOUSUF YOUSUF: Joyley multifactorial Pre Renal as well as intrinsic renal Start IVF Check Urine Lytes for FeNa calculation US suggest medical renal disease continue to monitor Cr NSC Lung Ca with effusion noted Hold Tagrisso at this time Patient likely needs VATS with tac pleurodesis, will defer to thoracic Sx management Cont IV Abx HTN Cont metoprolol HLD Statin GERD PPI
--- NOTE | 2020-09-10 12:20 | PN ---
Progress Note (short form) - Note Progress Note: Resting in NAD. Reports breathing feels stable. Intake & Output 09/07/20 09/08/20 09/09/20 09/10/20 23:59 23:59 23:59 23:59 Intake Total 1391 1000 650 Balance 1391 1000 650 Last Vital Signs Temp Pulse Resp BP Pulse Ox 98.2 F 93 H 18 130/69 93 L 09/10/20 09:00 09/10/20 09:00 09/10/20 09:00 09/10/20 09:00 09/10/20 09:00 Active Medications Acetaminophen (Tylenol -) 500 mg PO Q6H PRN PRN Reason: PAIN LEVEL 1-5 Aspirin (Asa -) 81 mg PO DAILY [facility] Last Admin: 09/10/20 09:03 Dose: 81 mg Documented by: Atorvastatin Calcium (Lipitor -) 10 mg PO HS [facility] Last Admin: 09/09/20 21:01 Dose: 10 mg Documented by: Bacitracin (Bacitracin -) 1 applic TP BID [facility] Last Admin: 09/10/20 09:11 Dose: 1 applic Documented by: Famotidine (Acid Medication Coordinator) 10 mg PO DAILY [facility] Last Admin: 09/10/20 09:02 Dose: 10 mg Documented by: Heparin Sodium (Porcine) (Heparin -) 5,000 unit SQ BID [facility] Last Admin: 09/10/20 09:03 Dose: 5,000 unit Documented by: Lactobacillus Acidophilus (Bacid -) 1 tab PO DAILY [facility] Last Admin: 09/10/20 09:02 Dose: 1 tab Documented by: Metoprolol Succinate (Toprol Xl -) 50 mg PO DAILY [facility] Last Admin: 09/10/20 09:03 Dose: 50 mg Documented by: Ondansetron HCl (Zofran Odt -) 4 mg SL Q8H PRN PRN Reason: NAUSEA Last Admin: 09/08/20 10:21 Dose: 4 mg Documented by: Sodium Bicarbonate (Sodium Bicarbonate -) 650 mg PO DAILY [facility] Last Admin: 09/10/20 09:03 Dose: 650 mg Documented by: Constitutional: Yes: Calm Eyes: Yes: EOM Intact HENT: Yes: Normocephalic Neck: Yes: Trachea Midline Cardiovascular: Yes: Regular Rate and Rhythm Respiratory: Yes: Diminished/Dullness at the left base Gastrointestinal: Yes: Normal Bowel Sounds Edema: No Labs: Laboratory Results - last 24 hr 09/05/20 09/10/20 09/10/20 14:22 05:13 05:13 WBC 9.1 RBC 3.13 L Hgb 8.2 L Hct 25.1 L D MCV 80.0 MCH 26.0 MCHC 32.5 RDW 16.5 H Plt Count 304 MPV 10.3 Absolute Neuts (auto) 7.3 Neutrophils % 80.7 Lymphocytes % 8.8 Monocytes % 8.7 Eosinophils % 1.4 Basophils % 0.4 Nucleated RBC % 0 Sodium 145 Potassium 3.9 Chloride 111 H Carbon Dioxide 24 Anion Gap 9 BUN 27.9 H Creatinine 1.9 H Est GFR (CKD-EPI)AfAm 32.64 Est GFR (CKD-EPI)NonAf 28.16 Random Glucose 86 Calcium 8.2 L Phosphorus 3.4 Magnesium 2.0 c-ANCA <1:20 Proteinase 3 (PR3) <3.5 p-ANCA <1:20 Atypical p-ANCA <1:20 Myeloperoxidase Ab <9.0 Imaging - Results Chest X-ray: Report Reviewed, Image Reviewed Problem List - Problems (1) Lung cancer Code(s): C34.90 - MALIGNANT NEOPLASM OF UNSP PART OF UNSP BRONCHUS OR LUNG Qualifiers: Laterality: unspecified laterality Lung location: unspecified part of lung Qualified Code(s): C34.90 - Malignant neoplasm of unspecified part of unspecified bronchus or lung (2) Malignant pleural effusion Code(s): J91.0 - MALIGNANT PLEURAL EFFUSION (3) Trapped lung Code(s): J98.19 - OTHER PULMONARY COLLAPSE (4) Anxiety Code(s): F41.9 - ANXIETY DISORDER, UNSPECIFIED (5) Soft tissue infection Code(s): L08.9 - LOCAL INFECTION OF THE SKIN AND SUBCUTANEOUS TISSUE, UNSP Assessment/Plan R/O EMPYEMA LEFT PLEURAL SPACE S/P DRAINAGE NOW WITH CONTINUED DENSITY Left Sub-pulmonic collection To discuss further with Surgery (general versus thoracic) about VAC placement Supplemental O2 as needed Pro-biotic VTE prophylaxis ABX per ID Dr Damon
--- NOTE | 2020-09-10 12:48 | PN ---
Progress Note, Physician History of Present Illness: Seen and examined at the bedside awake and alert denies any fever, chills, shortness of breath, cough or chest pain making urine - Current Medication List Current Medications: Active Medications Acetaminophen (Tylenol -) 500 mg PO Q6H PRN PRN Reason: PAIN LEVEL 1-5 Aspirin (Asa -) 81 mg PO DAILY [facility] Last Admin: 09/10/20 09:03 Dose: 81 mg Documented by: Atorvastatin Calcium (Lipitor -) 10 mg PO HS [facility] Last Admin: 09/09/20 21:01 Dose: 10 mg Documented by: Bacitracin (Bacitracin -) 1 applic TP BID [facility] Last Admin: 09/10/20 09:11 Dose: 1 applic Documented by: Famotidine (Acid Frit Burner) 10 mg PO DAILY [facility] Last Admin: 09/10/20 09:02 Dose: 10 mg Documented by: Heparin Sodium (Porcine) (Heparin -) 5,000 unit SQ BID [facility] Last Admin: 09/10/20 09:03 Dose: 5,000 unit Documented by: Lactobacillus Acidophilus (Bacid -) 1 tab PO DAILY [facility] Last Admin: 09/10/20 09:02 Dose: 1 tab Documented by: Metoprolol Succinate (Toprol Xl -) 50 mg PO DAILY [facility] Last Admin: 09/10/20 09:03 Dose: 50 mg Documented by: Ondansetron HCl (Zofran Odt -) 4 mg SL Q8H PRN PRN Reason: NAUSEA Last Admin: 09/08/20 10:21 Dose: 4 mg Documented by: Sodium Bicarbonate (Sodium Bicarbonate -) 650 mg PO DAILY [facility] Last Admin: 09/10/20 09:03 Dose: 650 mg Documented by: - Objective Vital Signs: Vital Signs Temperature 98.2 F 09/10/20 09:00 Pulse Rate 93 H 09/10/20 09:00 Respiratory Rate 18 09/10/20 09:00 Blood Pressure 130/69 09/10/20 09:00 O2 Sat by Pulse Oximetry (%) 93 L 09/10/20 09:00 Constitutional: Yes: No Distress, Calm HENT: Yes: Atraumatic Neck: Yes: Supple Cardiovascular: Yes: Regular Rate and Rhythm Respiratory: Yes: Regular, Diminished Gastrointestinal: Yes: Soft Extremities: No: Cyanosis Edema: No Neurological: Yes: Alert Labs: CBC, BMP 09/10/20 05:13 10/13/20 05:13 Assessment/Plan 59 year old woman with history of lung cancer on chemotherapy, hypertension, hyperlipidemia who presents with abnormal renal function. 1. Acute kidney injury from suspected AIN 2. Lung cancer 3. Sepsis/Pneumonia 4. Hypertension 5. Hyperlipidemia Renal function improved from Cr of 2.7 to 1.9 FeNa was 2.3% (consistent with tubular injury) US showed no obstruction but echogenicity consistent with CKD UA showed 24 WBC, eosinophils negative no peripheral eosinophilia noted. Cultures from this admission are negative, continue to hold PCN family antibiotics planned for IR drain oral intake as tolerated Zofran PRN IR/CT surgery evaluation pending KLAUDIA negative, ANCA pending, LDH WNL, Haptolgobin slightly elevated. Trend renal function daily. There is no acute need for renal replacement therapy. If Cr continues to downtrend can defer renal biopsy and monitor clinical trend Darryl Vazquez DO
[2020-09-10] MEDS ORDERED: MEROPENEM 1 GM in DEXTROSE 5%-WATER 100 ML IVPB SCH (13:15)
--- NOTE | 2020-09-10 13:18 | PN ---
Progress Note, Physician History of Present Illness: stable plan is to drain the empyema tomorrow - Current Medication List Current Medications: Active Medications Acetaminophen (Tylenol -) 500 mg PO Q6H PRN PRN Reason: PAIN LEVEL 1-5 Aspirin (Asa -) 81 mg PO DAILY [facility] Last Admin: 09/10/20 09:03 Dose: 81 mg Documented by: Atorvastatin Calcium (Lipitor -) 10 mg PO HS [facility] Last Admin: 09/09/20 21:01 Dose: 10 mg Documented by: Bacitracin (Bacitracin -) 1 applic TP BID [facility] Last Admin: 09/10/20 09:11 Dose: 1 applic Documented by: Famotidine (Acid Reinforcer) 10 mg PO DAILY [facility] Last Admin: 09/10/20 09:02 Dose: 10 mg Documented by: Heparin Sodium (Porcine) (Heparin -) 5,000 unit SQ BID [facility] Last Admin: 09/10/20 09:03 Dose: 5,000 unit Documented by: Lactobacillus Acidophilus (Bacid -) 1 tab PO DAILY [facility] Last Admin: 09/10/20 09:02 Dose: 1 tab Documented by: Metoprolol Succinate (Toprol Xl -) 50 mg PO DAILY [facility] Last Admin: 09/10/20 09:03 Dose: 50 mg Documented by: Ondansetron HCl (Zofran Odt -) 4 mg SL Q8H PRN PRN Reason: NAUSEA Last Admin: 09/08/20 10:21 Dose: 4 mg Documented by: Sodium Bicarbonate (Sodium Bicarbonate -) 650 mg PO DAILY [facility] Last Admin: 09/10/20 09:03 Dose: 650 mg Documented by: - Objective Vital Signs: Vital Signs Temperature 98.2 F 09/10/20 09:00 Pulse Rate 93 H 09/10/20 09:00 Respiratory Rate 18 09/10/20 09:00 Blood Pressure 130/69 09/10/20 09:00 O2 Sat by Pulse Oximetry (%) 93 L 09/10/20 09:00 Constitutional: Yes: No Distress, Calm Cardiovascular: Yes: S1, S2 Respiratory: Yes: Regular, Other (decre) Gastrointestinal: Yes: Normal Bowel Sounds, Soft Musculoskeletal: Yes: WNL Extremities: Yes: WNL Neurological: Yes: Alert, Oriented Psychiatric: Yes: Alert, Oriented Labs: CBC, BMP 09/10/20 05:13 09/10/20 05:13 Assessment/Plan Problem List - Problems (1) Lung cancer Code(s): C34.90 - MALIGNANT NEOPLASM OF UNSP PART OF UNSP BRONCHUS OR LUNG Qualifiers: Laterality: unspecified laterality Lung location: unspecified part of lung Qualified Code(s): C34.90 - Malignant neoplasm of unspecified part of unspecified bronchus or lung (2) Malignant pleural effusion Code(s): J91.0 - MALIGNANT PLEURAL EFFUSION (4) Trapped lung Code(s): J98.19 - OTHER PULMONARY COLLAPSE (5) Soft tissue infection Code(s): L08.9 - LOCAL INFECTION OF THE SKIN AND SUBCUTANEOUS TISSUE, UNSP Assessment/Plan Wound infection/ cellulitis Recent Empyema s/p chest tube YOUSUF Lung CA with mets Trapped Lung plan will start on doxy and aztreonam combination d/w nephro plan for procedure tomorrow rest as per the team
[2020-09-10] MEDS ORDERED: DEXTROSE 5%-WATER - 50 ML IVPB ONE (13:59)
[2020-09-10] MEDS ORDERED: AZTREONAM 1 GM VIAL (RESTRICTED TO ID) ONE (13:59)
[2020-09-10] MEDS: AZTREONAM 1 GM in DEXTROSE 5%-WATER - 50 ML IVPB SCH (14:05)
[2020-09-10] MEDS: DOXYCYCLINE HYCLATE 100 MG CAPSULE PO SCH ×2 (14:06→17:19)
--- NOTE | 2020-09-10 14:27 | PN ---
Physical Exam: SUBJECTIVE: Patient seen and examined this morning, continues to be sad due to her stay in hospital. Denies dysuria/increased frequency, denies F/C/N/V/D. Denies CP, SoB. OBJECTIVE: Vital Signs Period Temp Pulse Resp BP Sys/Gonzalez Pulse Ox Last 24 Hr 98.2 F-98.7 F 84-93 18-20 121-130/60-69 93-97 GENERAL: Baseline minimal mental impairment. The patient is awake, alert, and fully oriented, in no acute distress. HEAD: Normal with no signs of trauma. EYES: PERRL, extraocular movements intact, sclera anicteric, conjunctiva clear. No ptosis. ENT: Ears normal, nares patent, oropharynx clear without exudates, moist mucous membranes. NECK: Trachea midline, full range of motion, supple. LUNGS: Breath sounds diminished on left side, clear to auscultation bilaterally, no wheezes, no crackles, no accessory muscle use. HEART: Regular rate and rhythm, S1, S2 without murmur, rub or gallop. CHEST: Continues to drain purulent material. Dressings changed and applied. Area is less swollen, without erythema, not tender to palpation ABDOMEN: Soft, nontender, nondistended, normoactive bowel sounds, no guarding EXTREMITIES: 2+ pulses, warm, well-perfused, no edema. NEUROLOGICAL: Normal speech, gait not observed. PSYCH: Normal mood, normal affect. SKIN: Warm, dry, normal turgor, no rashes or lesions except as noted above. Laboratory Results - last 24 hr CBC, BMP 09/10/20 05:13 09/10/20 05:13 Active Medications Generic Name Dose Route Start Last Admin Trade Name Freq PRN Reason Stop Dose Admin Acetaminophen 500 mg 09/05/20 16:04 Tylenol - PO Q6H PRN PAIN LEVEL 1-5 Aspirin 81 mg 09/06/20 10:00 09/10/20 09:03 Asa - PO 81 mg DAILY [facility] Administration Atorvastatin Calcium 10 mg 09/05/20 22:00 09/09/20 21:01 Lipitor - PO 10 mg HS [facility] Administration Bacitracin 1 applic 09/06/20 22:00 09/10/20 09:11 Bacitracin - TP 1 applic BID [facility] Administration Doxycycline Hyclate 100 mg 09/10/20 14:00 09/10/20 17:19 Vibramycin - PO Not Given BID@1000,1800 [facility] Famotidine 10 mg 09/07/20 10:00 09/10/20 09:02 Acid Infantry Indirect Fire Crewmember PO 10 mg DAILY [facility] Administration Heparin Sodium (Porcine) 5,000 unit 09/05/20 22:00 09/10/20 09:03 Heparin - SQ 5,000 unit BID [facility] Administration Aztreonam 1 gm/ Dextrose 50 mls @ 100 mls/hr 09/10/20 13:30 09/10/20 14:05 IVPB 100 mls/hr Q12H [facility] Administration Protocol Lactobacillus Acidophilus 1 tab 09/07/20 13:30 09/10/20 09:02 Bacid - PO 1 tab DAILY [facility] Administration Metoprolol Succinate 50 mg 09/06/20 10:00 09/10/20 09:03 Toprol Xl - PO 50 mg DAILY [facility] Administration Ondansetron HCl 4 mg 09/07/20 15:30 09/08/20 10:21 Zofran Odt - SL 4 mg Q8H PRN Administration NAUSEA Sodium Bicarbonate 650 mg 09/07/20 15:30 09/10/20 09:03 Sodium Bicarbonate - PO 650 mg DAILY [facility] Administration ASSESSMENT/PLAN: 59 yo F w/ PMHx of NSCLC w/ EGFR mutation on Tagrisso recently admitted for persistent loculated pleural effusion following pleurex tube removal w/ dc on Clindamycin and Augmentin (ptn reports stopping medication on 09/04) presents from clinic 2/2 creatinine of 2.6 (baseline 0.9) which did not resolve with outpatient IV hydration. Admitted for YOUSUF and likely empyema. ACUTE KIDNEY INJURY: r/o PRE-RENAL vs INTRINSIC 2/2 ABX -Cr. 2.6 --> 2.2 --> 1.9 (baseline 0.9) -UA: Neg LE/Nit; WBC 24; Total protein 84 -Per Nephro: -LD: 233 -CK: 115 -Haptoglobin: 550 (mildly elevated) -FeNa 2.3% (consistent with tubular injury) -Hold antibiotics for now, specifically PCN based antibiotics -Hold IVF 2/2 pleural effusion -If Cr continues to downtrend, can defer renal biopsy -c/w sodium bicarb 650mg qDaily -Follow serologies -KLAUDIA: Negative -c-ANCA: Negative -p-ANCA: Negative -Proteinase 3: Negative -Atypical p-ANCA: Negative -Myeloperoxidase Ab: Negative -Total Complement: >60 R/O RECURRENT EMPYEMA (LEFT PLEURAL SPACE) w/ CONTINUED DENSITY IN PTN W/ HISTORY OF MALIGNANT EFFUSION -Afebrile, no WBC -Per Multidisciplinary team: Plan for drain empyema by IR in AM -Per ID: -DC Zosyn -Start Doxycycline 100mg BID - Day 1 -Start Aztreonam 1gm q12 - Day 1 -NPO at Midnight -c/w bacitracin dressings RECENT EPISODE OF DIARRHEA -c/w Bacid -Monitor electrolytes for repletion 2/2 GI loss HISTORY OF SYPHILLIS UNKNOWN IF TREATED -Syphylis Serology Reactive -Titer 1:1 -Hx of intellectual disability -Per ID: Will consider treatment for latent infection once ptn stable ANEMIA r/o CHRONIC DISEASE vs. BONE MARROW SUPPRESSION -Per Heme Onc: -History of NSCLC -Hold Osimertinib -Anemia 2/2 r/o chronic inflammation vs. bone marrow supression -Transfuse to keep Hbg > 7.0 -FOBT Negative HX OF NON SMALL CELL LUNG CANCER W/ EGFR MUTATION -Followed by Dr. Guallpa -Holding Osimertinib per Heme/Onc HISTORY OF HTN -Metoprolol 50mg Daily -Monitor VS HISTORY OF HYPERLIPIDEMIA -c/w Lipitor 10mg q daily -Hep A/B/C: Negative HISTORY OF GERD -c/w Famotidine 10mg FEN -No standing fluids -Lytes -Regular diet; NPO @ Midnight for planned IR Drain 09/11 PPx -DVT: Heparin 5000 TID -GI: Famotidine 10mg qdaily DISPO -Continue to monitor on med/surg Visit type - Emergency Visit Emergency Visit: No - New Patient This patient is new to me today: No - Critical Care Critical Care patient: No - Discharge Referral Referred to [facility] Med [facility].C[facility] No ATTENDING PHYSICIAN STATEMENT I saw and evaluated the patient. I reviewed the resident's note and discussed the case with the resident. I agree with the resident's findings and plan as documented. SUBJECTIVE: OBJECTIVE: ASSESSMENT AND PLAN:
--- NOTE | 2020-09-10 19:15 | PN.HO ---
Progress Note (short form) - Note Progress Note: S: Voices no complaints. O: Last Vital Signs Temp Pulse Resp BP Pulse Ox 98.5 F 89 18 130/66 95 09/10/20 14:39 09/10/20 14:39 09/10/20 14:39 09/10/20 14:39 09/10/20 14:39 Gen: NAD HEENT: MMM CVS: S1, S2 Lungs: limited/good air entry ant L Abdomen: Soft, NT, ND Skin: Bandage wet Ext: No edema Neuro: Non focal. Moves all extremities Current Medications Generic Name Dose Route Start Last Admin Trade Name Freq PRN Reason Stop Dose Admin Acetaminophen 500 mg 09/05/20 16:04 Tylenol - PO Q6H PRN PAIN LEVEL 1-5 Aspirin 81 mg 09/06/20 10:00 09/08/20 10:21 Asa - PO 81 mg DAILY [facility] Administration Atorvastatin Calcium 10 mg 09/05/20 22:00 09/07/20 22:00 Lipitor - PO 10 mg HS [facility] Administration Bacitracin 1 applic 09/06/20 22:00 09/08/20 10:21 Bacitracin - TP 1 applic BID [facility] Administration Famotidine 10 mg 09/07/20 10:00 09/08/20 10:21 Acid Grab Driver PO 10 mg DAILY [facility] Administration Heparin Sodium (Porcine) 5,000 unit 09/05/20 22:00 09/08/20 10:21 Heparin - SQ 5,000 unit BID [facility] Administration Lactobacillus Acidophilus 1 tab 09/07/20 13:30 09/08/20 10:21 Bacid - PO 1 tab DAILY [facility] Administration Metoprolol Succinate 50 mg 09/06/20 10:00 09/08/20 10:20 Toprol Xl - PO 50 mg DAILY [facility] Administration Ondansetron HCl 4 mg 09/07/20 15:30 09/08/20 10:21 Zofran Odt - SL 4 mg Q8H PRN Administration NAUSEA Sodium Bicarbonate 650 mg 09/07/20 15:30 09/08/20 10:20 Sodium Bicarbonate - PO 650 mg DAILY [facility] Administration 09/10/20 05:13 09/10/20 05:13 Assessment and Plan: 59 y/o lady with 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 Cr now is 1.9. [facility] nephrology input 2) CT Chest with slightly increased L pleural effusion. Plan to drain empyema by IR in AM. On Doxy/Aztreonam per ID 3) EGFR+ Stage IV Lung Adenocarcinoma. Holding Osimertinib.
[2020-09-10] MEDS: ATORVASTATIN CA 10 MG TABLET (FP) PO SCH (21:11)
[2020-09-11] MEDS ORDERED: AZTREONAM 1 GM VIAL (RESTRICTED TO ID) ONE ×2 (02:04→13:23)
[2020-09-11] MEDS ORDERED: DEXTROSE 5%-WATER - 50 ML IVPB ONE ×2 (02:05→13:23)
[2020-09-11] MEDS: AZTREONAM 1 GM in DEXTROSE 5%-WATER - 50 ML IVPB SCH ×2 (02:12→15:38)
[2020-09-11 08:01] LABS: BASO % 0.4 % (0-2.0); EOS % 2.2 % (0-4.5); HEMATOCRIT 17.6 % (32.4-45.2); MCH 26.2 pg (25.7-33.7); MCHC 32.5 g/dl (32.0-36.0); MEAN CELL VOLUME 80.6 fl (80-96); MEAN PLT VOLUME 10.4 fl (7.5-11.1); MONO % 8.8 % (3.8-10.2); NEUT % 77.6 % (42.8-82.8); PLATELET COUNT 316 K/MM3 (134-434); RBC 2.18 M/mm3 (3.60-5.2); RDW 16.3 % (11.6-15.6); WHITE BLOOD COUNT 8.9 K/mm3 (4.0-10.0)
[2020-09-11 08:28] LABS: HEMOGLOBIN 5.7 GM/dL (10.7-15.3)
[2020-09-11 08:36] LABS: BLOOD UREA NITROGEN 25.6 mg/dL (7-18); CALCIUM 8.1 mg/dL (8.5-10.1); CREATININE 1.7 mg/dL (0.55-1.3); MAGNESIUM 1.6 mg/dL (1.8-2.4); PHOSPHOROUS 3.6 mg/dL (2.5-4.9); POTASSIUM 3.9 mmol/L (3.5-5.1)
[2020-09-11] MEDS: FAMOTIDINE 10 MG TABLET PO SCH (09:15)
[2020-09-11] MEDS: ASPIRIN 81 MG CHEWABLE TABLETS PO SCH (09:20)
[2020-09-11] MEDS: LACTOBACILLUS ACIDOPHILUS 1 TABLET PO SCH (09:20)
[2020-09-11] MEDS: HEPARIN NA (PORCINE) 5,000 UNITS/ML 1ML VIAL SQ SCH ×2 (09:21→22:19)
[2020-09-11] MEDS: SODIUM BICARBONATE 650 MG TABLET PO SCH (09:21)
--- NOTE | 2020-09-11 10:13 | PN ---
Physical Exam: SUBJECTIVE: Patient seen and examined this AM. No new complaints. OBJECTIVE: Vital Signs Period Temp Pulse Resp BP Sys/Gonzalez Pulse Ox Last 24 Hr 98 F-98.7 F 83-89 18-18 121-130/61-66 94-96 GENERAL: A&Ox3, NAD HEAD: NCAT EYES: PERRL, EOMI ENT: MMM NECK: Supple LUNGS: DIminished breath sounds at the bases HEART: Regular rate and rhythm, S1, S2 without murmur ABDOMEN: Soft, nontender, nondistended, + bowel sounds, no guarding EXTREMITIES: no edema NEUROLOGICAL: Cranial nerves II through XII grossly intact. SKIN: Warm, dry. Left sided Chest wound with minimal drainaged, Dressing C/D/I without surrounding erythema Laboratory Last Values WBC 8.9 K/mm3 (4.0-10.0) 09/11/20 07: RBC 2.18 M/mm3 (3.60-5.2) L 09/11/20 07: Hgb 5.7 GM/dL (10.7-15.3) L* 09/11/20 07: Hct 17.6 % (32.4-45.2) L D 09/11/20 07:29 MCV 80.6 fl (80-96) 09/11/20 07: MCH 26.2 pg (25.7-33.7) 09/11/20 07: MCHC 32.5 g/dl (32.0-36.0) 09/11/20 07: RDW 16.3 % (11.6-15.6) H 09/11/20 07: Plt Count 316 K/MM3 (134-434) 09/11/20 07: MPV 10.4 fl (7.5-11.1) 09/11/20 07: Absolute Neuts (auto) 6.9 K/mm3 (1.5-8.0) 09/11/20 07: Neutrophils % 77.6 % (42.8-82.8) 09/11/20 07: Lymphocytes % 11.0 % (8-40) D 09/11/20 07: Monocytes % 8.8 % (3.8-10.2) 09/11/20 07: Eosinophils % 2.2 % (0-4.5) 09/11/20 07:29 Basophils % 0.4 % (0-2.0) 09/11/20 07:29 Nucleated RBC % 0 % (0-0) 09/11/20 07:29 Haptoglobin 550 mg/dL (33-346) H 09/05/20 14:22 Sodium 140 mmol/L (136-145) 09/11/20 07:29 Potassium 3.9 mmol/L (3.5-5.1) 09/11/20 07:29 Chloride 106 mmol/L (98-107) 09/11/20 07:29 Carbon Dioxide 25 mmol/L (21-32) 09/11/20 07:29 Anion Gap 9 MMOL/L (8-16) 09/11/20 07:29 BUN 25.6 mg/dL (7-18) H 09/11/20 07:29 Creatinine 1.7 mg/dL (0.55-1.3) H 09/11/20 07:29 Est GFR (CKD-EPI)AfAm 37.34 09/11/20 07:29 Est GFR (CKD-EPI)NonAf 32.21 09/11/20 07:29 Random Glucose 89 mg/dL (74-106) 09/11/20 07:29 Calcium 8.1 mg/dL (8.5-10.1) L 09/11/20 07:29 Phosphorus 3.6 mg/dL (2.5-4.9) 09/11/20 07:29 Magnesium 1.6 mg/dL (1.8-2.4) L 09/11/20 07:29 Total Bilirubin 0.3 mg/dL (0.2-1) 09/08/20 07:15 AST 12 U/L (15-37) L 09/08/20 07:15 ALT 8 U/L (13-61) L 09/08/20 07:15 Alkaline Phosphatase 80 U/L (45-117) 09/08/20 07:15 LD Total 233 U/L (84-246) 09/05/20 14:22 Creatine Kinase 115 U/L (26-192) 09/05/20 14:22 Total Protein 5.1 g/dl (6.4-8.2) L 09/08/20 07:15 Albumin 1.9 g/dl (3.4-5.0) L 09/08/20 07:15 Urine Color Yellow 09/05/20 19:15 Urine Appearance Cloudy 09/05/20 19:15 Urine pH 5.0 (5.0-8.0) 09/05/20 19:15 Ur Specific [place] 1.013 (1.010-1.035) 09/05/20 19:15 Urine Protein Trace (NEGATIVE) 09/05/20 19:15 Urine Glucose (UA) Negative (NEGATIVE) 09/05/20 19:15 Urine Ketones Negative (NEGATIVE) 09/05/20 19:15 Urine Blood Trace (NEGATIVE) 09/05/20 19:15 Urine Nitrite Negative (NEGATIVE) 09/05/20 19:15 Urine Bilirubin Negative (NEGATIVE) 09/05/20 19:15 Urine Urobilinogen 0.2 mg/dL (0.2-1.0) 09/05/20 19:15 Ur Leukocyte Esterase Negative (NEGATIVE) 09/05/20 19:15 Urine WBC (Auto) 24 /uL (0-25.8) 09/05/20 19:15 Urine Casts (Auto) 3 /uL (0-3.1) 09/05/20 19:15 U Epithel Cells (Auto) 15 /uL (0-25.1) 09/05/20 19:15 Urine Bacteria (Auto) 6 /uL (0-1359) 09/05/20 19:15 Urine Eosinophils None seen % (.) 09/05/20 19:15 Ur Random Creatinine 77.0 mg/dL (30-150) 09/05/20 19:15 U Random Total Protein 84.3 mg/dL (0-11.9) H 09/05/20 19:15 Ur Random Sodium 99 MMOL/L (40-220) 09/05/20 19:15 Ur Random Urea Nitrogn 485 mg/dL (350-1000) 09/05/20 19:15 Random Vancomycin 13.2 ug/ml (5-26) 09/09/20 06:30 KLAUDIA Screen Negative (.) 09/05/20 14:22 c-ANCA <1:20 titer (Neg:<1:20) 09/05/20 14:22 Proteinase 3 (PR3) <3.5 U/mL (0.0-3.5) 09/05/20 14:22 p-ANCA <1:20 titer (Neg:<1:20) 09/05/20 14:22 Atypical p-ANCA <1:20 titer (Neg:<1:20) 09/05/20 14:22 Myeloperoxidase Ab <9.0 U/mL (0.0-9.0) 09/05/20 14:22 Tot Complement (CH50) > 60 U/mL (>41) 09/05/20 14:22 Syphilis Serology Reactive (NONREACTIVE) A* 09/05/20 20:49 RPR Titer Reactive 1:1 (NONREACTIVE) H 09/05/20 20:49 COVID-19 (ANGELIQUE) Not detected (Not Detected) 09/06/20 11:30 Hep A IgM Ab Confirm Negative (Negative) 09/05/20 20:49 Hep Bs Antigen Negative (Negative) 09/05/20 20:49 Hep B Core IgM Ab Negative (Negative) 09/05/20 20:49 Hepatitis C Ab (EIA) <0.1 s/co ratio (0.0-0.9) 09/05/20 20:49 Blood Type A POSITIVE 09/05/20 09:20 Antibody Screen Negative 09/05/20 09:20 ASSESSMENT/PLAN: 59 y/o F PMHx NSCLC (on Tagrisso) complicated by malignant Rt pleural effusion, HTN, HLD, GERD. Recently discharged from [facility] for Sepsis requiring chest tube placement having completed a course of ABx, presented for IV Hydration and admitted for persistent YOUSUF despite hydration. IV Hydration has since been stopped due to development of pleural effusions on imaging. #YOUSUF -FeNa 2.3% consisted with intrarenal causes, Likely also component of Pre-Renal; Improving -Nephrology evaluation appreciated -Continue IV Hydration -Follow BMP, ANCA, CH50, SPEP #NSCLC -Resume Osimertinib -Plan for IR to drain Empyema -Surgery for possible VAC placement -ABx as per ID -DVT PPx #Anemia -Possibly Anemia of chonic inflamation vs Bone marrow suppression from Osimertinib use -Transfuse to keep Hgb > 7.0 Visit type - Emergency Visit Emergency Visit: Yes ED Registration Date: 09/05/20 Care time: The patient presented to the Emergency Department on the above date and was hospitalized for further evaluation of their emergent condition. - New Patient This patient is new to me today: No - Critical Care Critical Care patient: No - Discharge Referral Referred to [facility] Med P.C.: No ATTENDING PHYSICIAN STATEMENT I saw and evaluated the patient. I reviewed the resident's note and discussed the case with the resident. I agree with the resident's findings and plan as documented. SUBJECTIVE: OBJECTIVE: ASSESSMENT AND PLAN:
--- NOTE | 2020-09-11 10:29 | PN ---
Progress Note, Physician History of Present Illness: pulmonary alert,comfortable ,-sob. pt to I+ D wound site and vac placement - Current Medication List Current Medications: Active Medications Acetaminophen (Tylenol -) 500 mg PO Q6H PRN PRN Reason: PAIN LEVEL 1-5 Aspirin (Asa -) 81 mg PO DAILY [facility] Last Admin: 09/11/20 09:20 Dose: Not Given Documented by: Atorvastatin Calcium (Lipitor -) 10 mg PO HS [facility] Last Admin: 09/10/20 21:11 Dose: 10 mg Documented by: Bacitracin (Bacitracin -) 1 applic TP BID [facility] Last Admin: 09/10/20 21:12 Dose: 1 applic Documented by: Doxycycline Hyclate (Vibramycin -) 100 mg PO BID@1000,1800 [facility] Last Admin: 09/10/20 17:19 Dose: Not Given Documented by: Famotidine (Acid Veterinary Poultry Inspector) 10 mg PO DAILY [facility] Last Admin: 09/11/20 09:15 Dose: 10 mg Documented by: Heparin Sodium (Porcine) (Heparin -) 5,000 unit SQ BID [facility] Last Admin: 09/11/20 09:21 Dose: Not Given Documented by: Aztreonam 1 gm/ Dextrose 50 mls @ 100 mls/hr IVPB Q12H [facility]; Protocol Last Admin: 09/11/20 02:12 Dose: 100 mls/hr Documented by: Lactobacillus Acidophilus (Bacid -) 1 tab PO DAILY [facility] Last Admin: 09/11/20 09:20 Dose: Not Given Documented by: Metoprolol Succinate (Toprol Xl -) 50 mg PO DAILY [facility] Last Admin: 09/11/20 09:15 Dose: 50 mg Documented by: Ondansetron HCl (Zofran Odt -) 4 mg SL Q8H PRN PRN Reason: NAUSEA Last Admin: 09/08/20 10:21 Dose: 4 mg Documented by: Sodium Bicarbonate (Sodium Bicarbonate -) 650 mg PO DAILY [facility] Last Admin: 09/11/20 09:21 Dose: Not Given Documented by: - Objective Vital Signs: Vital Signs Temperature 98.7 F 09/11/20 05:55 Pulse Rate 88 09/11/20 05:55 Respiratory Rate 18 09/11/20 09:00 Blood Pressure 121/61 09/11/20 05:55 O2 Sat by Pulse Oximetry (%) 96 09/11/20 09:00 Constitutional: Yes: Calm, Thin Eyes: Yes: WNL HENT: Yes: WNL Neck: Yes: WNL Cardiovascular: Yes: Regular Rate and Rhythm, S1, S2 Respiratory: Yes: Diminished Gastrointestinal: Yes: Normal Bowel Sounds, Soft Extremities: Yes: WNL Edema: No Labs: CBC, BMP 09/11/20 07:29 09/11/20 07:29 Assessment/Plan roblem List - Problems (1) Lung cancer Code(s): C34.90 - MALIGNANT NEOPLASM OF UNSP PART OF UNSP BRONCHUS OR LUNG Qualifiers: Laterality: unspecified laterality Lung location: unspecified part of lung Qualified Code(s): C34.90 - Malignant neoplasm of unspecified part of unspecified bronchus or lung (2) Malignant pleural effusion Code(s): J91.0 - MALIGNANT PLEURAL EFFUSION (3) Trapped lung Code(s): J98.19 - OTHER PULMONARY COLLAPSE (4) Anxiety Code(s): F41.9 - ANXIETY DISORDER, UNSPECIFIED (5) Soft tissue infection Code(s): L08.9 - LOCAL INFECTION OF THE SKIN AND SUBCUTANEOUS TISSUE, UNSP Assessment/Plan R/O EMPYEMA LEFT PLEURAL SPACE S/P DRAINAGE NOW WITH CONTINUED DENSITY Left Sub-pulmonic collection Anemia monitor h+h normal transfusion threshold Supplemental O2 as needed Pro-biotic VTE prophylaxis ABX per ID DR PAZ
--- NOTE | 2020-09-11 10:43 | PN ---
Progress Note, Physician History of Present Illness: stable no new issues for or today - Current Medication List Current Medications: Active Medications Acetaminophen (Tylenol -) 500 mg PO Q6H PRN PRN Reason: PAIN LEVEL 1-5 Aspirin (Asa -) 81 mg PO DAILY [facility] Last Admin: 09/11/20 09:20 Dose: Not Given Documented by: Atorvastatin Calcium (Lipitor -) 10 mg PO HS [facility] Last Admin: 09/10/20 21:11 Dose: 10 mg Documented by: Bacitracin (Bacitracin -) 1 applic TP BID [facility] Last Admin: 09/10/20 21:12 Dose: 1 applic Documented by: Doxycycline Hyclate (Vibramycin -) 100 mg PO BID@1000,1800 [facility] Last Admin: 09/10/20 17:19 Dose: Not Given Documented by: Famotidine (Acid Produce Team Lead) 10 mg PO DAILY [facility] Last Admin: 09/11/20 09:15 Dose: 10 mg Documented by: Heparin Sodium (Porcine) (Heparin -) 5,000 unit SQ BID [facility] Last Admin: 09/11/20 09:21 Dose: Not Given Documented by: Aztreonam 1 gm/ Dextrose 50 mls @ 100 mls/hr IVPB Q12H [facility]; Protocol Last Admin: 09/11/20 02:12 Dose: 100 mls/hr Documented by: Lactobacillus Acidophilus (Bacid -) 1 tab PO DAILY [facility] Last Admin: 09/11/20 09:20 Dose: Not Given Documented by: Metoprolol Succinate (Toprol Xl -) 50 mg PO DAILY [facility] Last Admin: 09/11/20 09:15 Dose: 50 mg Documented by: Ondansetron HCl (Zofran Odt -) 4 mg SL Q8H PRN PRN Reason: NAUSEA Last Admin: 09/08/20 10:21 Dose: 4 mg Documented by: Sodium Bicarbonate (Sodium Bicarbonate -) 650 mg PO DAILY [facility] Last Admin: 09/11/20 09:21 Dose: Not Given Documented by: - Objective Vital Signs: Vital Signs Temperature 98.7 F 09/11/20 05:55 Pulse Rate 88 09/11/20 05:55 Respiratory Rate 18 09/11/20 09:00 Blood Pressure 121/61 09/11/20 05:55 O2 Sat by Pulse Oximetry (%) 96 09/11/20 09:00 Constitutional: Yes: No Distress, Calm Cardiovascular: Yes: S1, S2 Respiratory: Yes: Regular, Poor Air Entry Gastrointestinal: Yes: Normal Bowel Sounds, Soft Musculoskeletal: Yes: WNL Extremities: Yes: WNL Neurological: Yes: Alert, Oriented Psychiatric: Yes: Alert, Oriented Labs: CBC, BMP 09/11/20 07:29 09/11/20 07:29 Assessment/Plan Problem List - Problems (1) Lung cancer Code(s): C34.90 - MALIGNANT NEOPLASM OF UNSP PART OF UNSP BRONCHUS OR LUNG Qualifiers: Laterality: unspecified laterality Lung location: unspecified part of lung Qualified Code(s): C34.90 - Malignant neoplasm of unspecified part of unspecified bronchus or lung (2) Malignant pleural effusion Code(s): J91.0 - MALIGNANT PLEURAL EFFUSION (4) Trapped lung Code(s): J98.19 - OTHER PULMONARY COLLAPSE (5) Soft tissue infection Code(s): L08.9 - LOCAL INFECTION OF THE SKIN AND SUBCUTANEOUS TISSUE, UNSP Assessment/Plan Wound infection/ cellulitis Recent Empyema s/p chest tube YOUSUF Lung CA with mets Trapped Lung plan ct abx for or today rest as per the team
[2020-09-11 10:48] LABS: HEMATOCRIT 23.3 % (32.4-45.2); HEMOGLOBIN 7.6 GM/dL (10.7-15.3); MCH 25.9 pg (25.7-33.7); MCHC 32.5 g/dl (32.0-36.0); MEAN CELL VOLUME 79.7 fl (80-96); MEAN PLT VOLUME 10.5 fl (7.5-11.1); PLATELET COUNT 267 K/MM3 (134-434); RBC 2.92 M/mm3 (3.60-5.2); RDW 16.2 % (11.6-15.6)
--- NOTE | 2020-09-11 11:54 | PN ---
Progress Note, Physician History of Present Illness: Seen and examined at the bedside awake and alert denies any fever, chills, shortness of breath, cough or chest pain making urine feels fatigued - Current Medication List Current Medications: Active Medications Acetaminophen (Tylenol -) 500 mg PO Q6H PRN PRN Reason: PAIN LEVEL 1-5 Aspirin (Asa -) 81 mg PO DAILY [facility] Last Admin: 09/11/20 09:20 Dose: Not Given Documented by: Atorvastatin Calcium (Lipitor -) 10 mg PO HS [facility] Last Admin: 09/10/20 21:11 Dose: 10 mg Documented by: Bacitracin (Bacitracin -) 1 applic TP BID [facility] Last Admin: 09/10/20 21:12 Dose: 1 applic Documented by: Doxycycline Hyclate (Vibramycin -) 100 mg PO BID@1000,1800 [facility] Last Admin: 09/10/20 17:19 Dose: Not Given Documented by: Famotidine (Acid Fertilizer Mixer) 10 mg PO DAILY [facility] Last Admin: 09/11/20 09:15 Dose: 10 mg Documented by: Heparin Sodium (Porcine) (Heparin -) 5,000 unit SQ BID [facility] Last Admin: 09/11/20 09:21 Dose: Not Given Documented by: Aztreonam 1 gm/ Dextrose 50 mls @ 100 mls/hr IVPB Q12H [facility]; Protocol Last Admin: 09/11/20 02:12 Dose: 100 mls/hr Documented by: Lactobacillus Acidophilus (Bacid -) 1 tab PO DAILY [facility] Last Admin: 09/11/20 09:20 Dose: Not Given Documented by: Metoprolol Succinate (Toprol Xl -) 50 mg PO DAILY [facility] Last Admin: 09/11/20 09:15 Dose: 50 mg Documented by: Ondansetron HCl (Zofran Odt -) 4 mg SL Q8H PRN PRN Reason: NAUSEA Last Admin: 09/08/20 10:21 Dose: 4 mg Documented by: Sodium Bicarbonate (Sodium Bicarbonate -) 650 mg PO DAILY [facility] Last Admin: 09/11/20 09:21 Dose: Not Given Documented by: - Objective Vital Signs: Vital Signs Temperature 98.7 F 09/11/20 05:55 Pulse Rate 88 09/11/20 05:55 Respiratory Rate 18 09/11/20 09:00 Blood Pressure 121/61 09/11/20 05:55 O2 Sat by Pulse Oximetry (%) 96 09/11/20 09:00 Constitutional: Yes: No Distress HENT: Yes: Atraumatic Neck: Yes: Supple Cardiovascular: Yes: Regular Rate and Rhythm Respiratory: Yes: Regular Gastrointestinal: Yes: Soft. No: Tenderness Extremities: No: Cyanosis Edema: No Neurological: Yes: Alert Labs: CBC, BMP 09/11/20 10:02 09/11/20 07:29 Assessment/Plan 59 year old woman with history of lung cancer on chemotherapy, hypertension, hyperlipidemia who presents with abnormal renal function. 1. Acute kidney injury from suspected AIN 2. Lung cancer 3. Sepsis/Pneumonia 4. Hypertension 5. Hyperlipidemia Renal function improved from Cr of 2.7 to 1.7 FeNa was 2.3% (consistent with tubular injury) US showed no obstruction but echogenicity consistent with CKD UA showed 24 WBC, eosinophils negative no peripheral eosinophilia noted. Cultures from this admission are negative, continue to hold PCN family antibiotics planned for IR drain today oral intake as tolerated Zofran PRN IR/CT surgery follow up KLAUDIA negative, ANCA pending, LDH WNL, Haptolgobin slightly elevated. Trend renal function daily. There is no acute need for renal replacement therapy. If Cr continues to downtrend can defer renal biopsy and monitor clinical trend trend H/H, transfuse as needed Darryl Vazquez DO
--- NOTE | 2020-09-11 11:58 | PN ---
Progress Note (short form) - Note Progress Note: Attending Surgeon CTSP who is a 59 y/o female w/metastatic NSSC of the lung who had a recent Pleurex catheter which was removed; patient has persistent drainage from the skin site; Dr. Nida Rubi has discussed the case w/me and patient will go to the OR today for I and D and possible VAC placement; r/b/t/a's d/w the patient and informed consent will be obtained; I have reviewed her entire ospital admission to date and previus admissions. Wilder Pedraza MD FACS
[2020-09-11] MEDS: BACITRACIN 15 GM TUBE TOPICAL OINTMENT TP SCH ×2 (12:17→22:19)
[2020-09-11] MEDS: DOXYCYCLINE HYCLATE 100 MG CAPSULE PO SCH ×2 (12:17→17:43)
[2020-09-11] MEDS ORDERED: BUPIVACAINE HCL 100 ML ONE (12:38)
[2020-09-11] MEDS ORDERED: PROPOFOL 20 ML ONE ×2 (12:57)
[2020-09-11] MEDS ORDERED: ROCURONIUM BROMIDE 100 MG/10 ML VIAL ONE (12:58)
[2020-09-11] MEDS ORDERED: SUCCINYLCHOLINE CHLORIDE 200 MG/10 ML SYRINGE ONE (12:58)
[2020-09-11] MEDS ORDERED: MIDAZOLAM HCL 2 MG/2 ML SINGLE DOSE VIAL ONE (12:59)
[2020-09-11] MEDS ORDERED: LIDOCAINE HCL/PF 2% SDV 5ML VIAL ONE (13:27)
[2020-09-11] MEDS ORDERED: AZTREONAM 1 GM VIAL (RESTRICTED TO ID) IVPB ONE (13:45)
--- NOTE | 2020-09-11 14:28 | OP ---
Operative Note - Note: Operative Date: 09/11/20 Pre-Operative Diagnosis: left chest wound Operation: I and D and debridement of left chest wound and aplication of VAC dressing. Findings: Sinus tract; no communication w/the chest cavity. Surgeon: Wilder Pedraza Tool Room Lathe Operator: Nel Fraser Anesthesiologist/SHOEMAKING FINISHER: Renay Ramirez Anesthesia: General Specimens Removed: non viable tisue Estimated Blood Loss (mls): 5
--- NOTE | 2020-09-11 15:57 | PN ---
Physical Exam: SUBJECTIVE: Patient seen and examined this morning, remains upset that she is in hospital. Scheduled for I&D of back wound w/ vac placement by General Surgery OBJECTIVE: Vital Signs Period Temp Pulse Resp BP Sys/Gonzalez Pulse Ox Last 24 Hr 97.5 F-98.7 F 71-88 12-18 121-139/61-69 94-100 GENERAL: Baseline minimal mental impairment. The patient is awake, alert, and fully oriented, in no acute distress. HEAD: Normal with no signs of trauma. EYES: PERRL, extraocular movements intact, sclera anicteric, conjunctiva clear. No ptosis. ENT: Ears normal, nares patent, oropharynx clear without exudates, moist mucous membranes. NECK: Trachea midline, full range of motion, supple. LUNGS: Breath sounds diminished on left side, clear to auscultation bilaterally, no wheezes, no crackles, no accessory muscle use. HEART: Regular rate and rhythm, S1, S2 without murmur, rub or gallop. CHEST: Continues to drain minimal purulent material. Dressings changed and applied. Area is less swollen, without erythema, not tender to palpation ABDOMEN: Soft, nontender, nondistended, normoactive bowel sounds, no guarding EXTREMITIES: 2+ pulses, warm, well-perfused, no edema. NEUROLOGICAL: Normal speech, gait not observed. PSYCH: Normal mood, normal affect. SKIN: Warm, dry, normal turgor, no rashes or lesions except as noted above. Laboratory Results - last 24 hr Active Medications Generic Name Dose Route Start Last Admin Trade Name Freq PRN Reason Stop Dose Admin Acetaminophen 500 mg 09/11/20 14:39 Tylenol - PO Q6H PRN PAIN LEVEL 1-5 Aspirin 81 mg 09/12/20 10:00 Asa - PO DAILY [facility] Atorvastatin Calcium 10 mg 09/11/20 22:00 Lipitor - PO HS [facility] Bacitracin 1 applic 09/11/20 22:00 Bacitracin - TP BID [facility] Doxycycline Hyclate 100 mg 09/11/20 18:00 Vibramycin - PO BID@1000,1800 [facility] Famotidine 10 mg 09/12/20 10:00 Acid Paper Counter PO DAILY [facility] Fentanyl 25 mcg 09/11/20 15:16 Sublimaze Injection - IVPUSH [id number] PRN PAIN-PACU ORDER X 4 DOSES ONLY Heparin Sodium (Porcine) 5,000 unit 09/11/20 22:00 Heparin - SQ BID [facility] Aztreonam 1 gm/ Dextrose 50 mls @ 100 mls/hr 09/12/20 01:30 IVPB Q12H [facility] Protocol Lactated Ringer's 1,000 mls @ 125 mls/hr 09/11/20 15:30 Lactated Ringers Solution IV ASDIR [facility] Lactobacillus Acidophilus 1 tab 09/12/20 10:00 Bacid - PO DAILY [facility] Metoprolol Succinate 50 mg 09/12/20 10:00 Toprol Xl - PO DAILY [facility] Ondansetron HCl 4 mg 09/11/20 14:39 Zofran Odt - SL Q8H PRN NAUSEA Sodium Bicarbonate 650 mg 09/12/20 10:00 Sodium Bicarbonate - PO DAILY [facility] ASSESSMENT/PLAN: 59 yo F w/ PMHx of NSCLC w/ EGFR mutation on Tagrisso recently admitted for persistent loculated pleural effusion following pleurex tube removal w/ dc on Clindamycin and Augmentin (ptn reports stopping medication on 09/04) presents from clinic 2/2 creatinine of 2.6 (baseline 0.9) which did not resolve with outpatient IV hydration. Admitted for YOUSUF and likely empyema. ACUTE KIDNEY INJURY: r/o PRE-RENAL vs INTRINSIC 2/2 ABX -Cr. 2.6 --> 2.2 --> 1.9 (baseline 0.9) -UA: Neg LE/Nit; WBC 24; Total protein 84 -Per Nephro: -LD: 233 -CK: 115 -Haptoglobin: 550 (mildly elevated) -FeNa 2.3% (consistent with tubular injury) -Hold antibiotics for now, specifically PCN based antibiotics -Hold IVF 2/2 pleural effusion -If Cr continues to downtrend, can defer renal biopsy -Follow serologies -KLAUDIA: Negative -c-ANCA: Negative -p-ANCA: Negative -Proteinase 3: Negative -Atypical p-ANCA: Negative -Myeloperoxidase Ab: Negative -Total Complement: >60 R/O RECURRENT EMPYEMA (LEFT PLEURAL SPACE) w/ CONTINUED DENSITY IN PTN W/ HISTORY OF MALIGNANT EFFUSION -Afebrile, no WBC -Per Gen Surg: I&D done in OR w/ vac placement. Sinus tract; no communication w/ the chest cavity. -Per ID: -c/w Doxycycline 100mg BID - Day 2 -c/w Aztreonam 1gm q12 - Day 2 -FU wound culture -c/w bacitracin dressings RECENT EPISODE OF DIARRHEA -c/w Bacid -c/w sodium bicarb 650mg qDaily -Monitor electrolytes for repletion 2/2 GI loss -2gm Mag repleted. Replete <2.0 HISTORY OF SYPHILLIS UNKNOWN IF TREATED -Syphylis Serology Reactive -Titer 1:1 -Hx of intellectual disability -Per ID: Will consider treatment for latent infection once ptn stable ANEMIA r/o CHRONIC DISEASE vs. BONE MARROW SUPPRESSION -Per Heme Onc: -History of NSCLC -Hold Osimertinib -Anemia 2/2 r/o chronic inflammation vs. bone marrow supression -Transfuse to keep Hbg > 7.0 -FOBT Negative HX OF NON SMALL CELL LUNG CANCER W/ EGFR MUTATION -Followed by Dr. Guallpa -Holding Osimertinib per Heme/Onc HISTORY OF HTN -Metoprolol 50mg Daily -Monitor VS HISTORY OF HYPERLIPIDEMIA -c/w Lipitor 10mg q daily -Hep A/B/C: Negative HISTORY OF GERD -c/w Famotidine 10mg FEN -LR @ 125 -Lytes -Regular diet PPx -DVT: Heparin 5000 BID -GI: Famotidine 10mg qdaily DISPO -Continue to monitor on med/surg Visit type - Emergency Visit Emergency Visit: No - New Patient This patient is new to me today: No - Critical Care Critical Care patient: No - Discharge Referral Referred to [facility] Med P.C.: No ATTENDING PHYSICIAN STATEMENT I saw and evaluated the patient. I reviewed the resident's note and discussed the case with the resident. I agree with the resident's findings and plan as documented. SUBJECTIVE: OBJECTIVE: ASSESSMENT AND PLAN:
[2020-09-11] MEDS ORDERED: oxyCODONE HCL 5 MG TABLET PO PRN (16:13)
--- NOTE | 2020-09-11 16:21 | PN ---
Teaching Attending Note Name of Resident: Wilfredo Roa ATTENDING PHYSICIAN STATEMENT I saw and evaluated the patient. I reviewed the resident's note and discussed the case with the resident. I agree with the resident's findings and plan as documented. 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
[2020-09-11] MEDS: LACTATED RINGERS SOLUTION 1,000 ML IV SCH (16:42)
[2020-09-11] MEDS ORDERED: MAGNESIUM 2GM/50ML STERILE WATER IVPB IVPB ONE (16:49)
--- NOTE | 2020-09-11 20:23 | PN ---
Teaching Attending Note ATTENDING PHYSICIAN STATEMENT I saw and evaluated the patient. I reviewed the resident's note and discussed the case with the resident. I agree with the resident's findings and plan as documented. SUBJECTIVE: OBJECTIVE: ASSESSMENT AND PLAN:
--- NOTE | 2020-09-11 21:50 | PN.HO ---
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
[2020-09-11] MEDS: ATORVASTATIN CA 10 MG TABLET (FP) PO SCH (22:19)
[2020-09-11] MEDS: OSIMERTINIB 80 MG PO SCH (22:19)
[2020-09-12] MEDS ORDERED: AZTREONAM 1 GM VIAL (RESTRICTED TO ID) ONE ×3 (01:41→14:00)
[2020-09-12] MEDS ORDERED: DEXTROSE 5%-WATER - 50 ML IVPB ONE ×2 (01:43→14:01)
[2020-09-12] MEDS: AZTREONAM 1 GM in DEXTROSE 5%-WATER - 50 ML IVPB SCH ×2 (02:05→14:18)
[2020-09-12 09:25] LABS: BASO % 0.5 % (0-2.0); HEMATOCRIT 31.9 % (32.4-45.2); HEMOGLOBIN 10.3 GM/dL (10.7-15.3); LYMPH % 7.7 % (8-40); MCH 25.4 pg (25.7-33.7); MCHC 32.2 g/dl (32.0-36.0); MEAN CELL VOLUME 78.9 fl (80-96); MEAN PLT VOLUME 10.1 fl (7.5-11.1); MONO % 7.3 % (3.8-10.2); NEUT % 83.5 % (42.8-82.8); PLATELET COUNT 286 K/MM3 (134-434); RBC 4.04 M/mm3 (3.60-5.2); RDW 16.5 % (11.6-15.6); WHITE BLOOD COUNT 10.1 K/mm3 (4.0-10.0)
[2020-09-12 09:59] LABS: CALCIUM 8.4 mg/dL (8.5-10.1); CREATININE 1.7 mg/dL (0.55-1.3); MAGNESIUM 1.8 mg/dL (1.8-2.4); PHOSPHOROUS 3.3 mg/dL (2.5-4.9)
--- NOTE | 2020-09-12 10:19 | PN ---
Physical Exam: SUBJECTIVE: Patient seen and examined this AM. No new complaints. Vac placed. OBJECTIVE: Vital Signs Period Temp Pulse Resp BP Sys/Gonzalez Pulse Ox Last 24 Hr 97.3 F-98.4 F 71-85 12-20 113-139/63-78 93-100 GENERAL: A&Ox3, NAD HEAD: NCAT EYES: PERRL, EOMI ENT: MMM NECK: Supple LUNGS: DIminished breath sounds at the bases HEART: Regular rate and rhythm, S1, S2 without murmur ABDOMEN: Soft, nontender, nondistended, + bowel sounds, no guarding EXTREMITIES: no edema NEUROLOGICAL: Cranial nerves II through XII grossly intact. SKIN: Warm, dry. Left sided Chest wound with minimal drainaged, Dressing C/D/I without surrounding erythema Laboratory Last Values WBC 10.1 K/mm3 (4.0-10.0) H 09/12/20 08:59 RBC 4.04 M/mm3 (3.60-5.2) 09/12/20 08:59 Hgb 10.3 GM/dL (10.7-15.3) L 09/12/20 08:59 Hct 31.9 % (32.4-45.2) L D 09/12/20 08:59 MCV 78.9 fl (80-96) L 09/12/20 08:59 MCH 25.4 pg (25.7-33.7) L 09/12/20 08:59 MCHC 32.2 g/dl (32.0-36.0) 09/12/20 08:59 RDW 16.5 % (11.6-15.6) H 09/12/20 08:59 Plt Count 286 K/MM3 (134-434) 09/12/20 08:59 MPV 10.1 fl (7.5-11.1) 09/12/20 08:59 Absolute Neuts (auto) 8.5 K/mm3 (1.5-8.0) H 09/12/20 08:59 Neutrophils % 83.5 % (42.8-82.8) H 09/12/20 08:59 Lymphocytes % 7.7 % (8-40) L D 09/12/20 08:59 Monocytes % 7.3 % (3.8-10.2) 09/12/20 08:59 Eosinophils % 1.0 % (0-4.5) 09/12/20 08:59 Basophils % 0.5 % (0-2.0) 09/12/20 08:59 Nucleated RBC % 0 % (0-0) 09/12/20 08:59 Haptoglobin 550 mg/dL (33-346) H 09/05/20 14:22 Sodium 142 mmol/L (136-145) 09/12/20 08:59 Potassium 4.0 mmol/L (3.5-5.1) 09/12/20 08:59 Chloride 107 mmol/L (98-107) 09/12/20 08:59 Carbon Dioxide 25 mmol/L (21-32) 09/12/20 08:59 Anion Gap 10 MMOL/L (8-16) 09/12/20 08:59 BUN 24.0 mg/dL (7-18) H 09/12/20 08:59 Creatinine 1.7 mg/dL (0.55-1.3) H 09/12/20 08:59 Est GFR (CKD-EPI)AfAm 37.34 09/12/20 08:59 Est GFR (CKD-EPI)NonAf 32.21 09/12/20 08:59 Random Glucose 105 mg/dL (74-106) 09/12/20 08:59 Calcium 8.4 mg/dL (8.5-10.1) L 09/12/20 08:59 Phosphorus 3.3 mg/dL (2.5-4.9) 09/12/20 08:59 Magnesium 1.8 mg/dL (1.8-2.4) 09/12/20 08:59 Total Bilirubin 0.3 mg/dL (0.2-1) 09/08/20 07:15 AST 12 U/L (15-37) L 09/08/20 07:15 ALT 8 U/L (13-61) L 09/08/20 07:15 Alkaline Phosphatase 80 U/L (45-117) 09/08/20 07:15 LD Total 233 U/L (84-246) 09/05/20 14:22 Creatine Kinase 115 U/L (26-192) 09/05/20 14:22 Total Protein 5.1 g/dl (6.4-8.2) L 09/08/20 07:15 Albumin 1.9 g/dl (3.4-5.0) L 09/08/20 07:15 Urine Color Yellow 09/05/20 19:15 Urine Appearance Cloudy 09/05/20 19:15 Urine pH 5.0 (5.0-8.0) 09/05/20 19:15 Ur Specific [place] 1.013 (1.010-1.035) 09/05/20 19:15 Urine Protein Trace (NEGATIVE) 09/05/20 19:15 Urine Glucose (UA) Negative (NEGATIVE) 09/05/20 19:15 Urine Ketones Negative (NEGATIVE) 09/05/20 19:15 Urine Blood Trace (NEGATIVE) 09/05/20 19:15 Urine Nitrite Negative (NEGATIVE) 09/05/20 19:15 Urine Bilirubin Negative (NEGATIVE) 09/05/20 19:15 Urine Urobilinogen 0.2 mg/dL (0.2-1.0) 09/05/20 19:15 Ur Leukocyte Esterase Negative (NEGATIVE) 09/05/20 19:15 Urine WBC (Auto) 24 /uL (0-25.8) 09/05/20 19:15 Urine Casts (Auto) 3 /uL (0-3.1) 09/05/20 19:15 U Epithel Cells (Auto) 15 /uL (0-25.1) 09/05/20 19:15 Urine Bacteria (Auto) 6 /uL (0-1359) 09/05/20 19:15 Urine Eosinophils None seen % (.) 09/05/20 19:15 Ur Random Creatinine 77.0 mg/dL (30-150) 09/05/20 19:15 U Random Total Protein 84.3 mg/dL (0-11.9) H 09/05/20 19:15 Ur Random Sodium 99 MMOL/L (40-220) 09/05/20 19:15 Ur Random Urea Nitrogn 485 mg/dL (350-1000) 09/05/20 19:15 Random Vancomycin 13.2 ug/ml (5-26) 09/09/20 06:30 KLAUDIA Screen Negative (.) 09/05/20 14:22 c-ANCA <1:20 titer (Neg:<1:20) 09/05/20 14:22 Proteinase 3 (PR3) <3.5 U/mL (0.0-3.5) 09/05/20 14:22 p-ANCA <1:20 titer (Neg:<1:20) 09/05/20 14:22 Atypical p-ANCA <1:20 titer (Neg:<1:20) 09/05/20 14:22 Myeloperoxidase Ab <9.0 U/mL (0.0-9.0) 09/05/20 14:22 Tot Complement (CH50) > 60 U/mL (>41) 09/05/20 14:22 Syphilis Serology Reactive (NONREACTIVE) A* 09/05/20 20:49 RPR Titer Reactive 1:1 (NONREACTIVE) H 09/05/20 20:49 COVID-19 (ANGELIQUE) Not detected (Not Detected) 09/06/20 11:30 Hep A IgM Ab Confirm Negative (Negative) 09/05/20 20:49 Hep Bs Antigen Negative (Negative) 09/05/20 20:49 Hep B Core IgM Ab Negative (Negative) 09/05/20 20:49 Hepatitis C Ab (EIA) <0.1 s/co ratio (0.0-0.9) 09/05/20 20:49 Blood Type A POSITIVE 09/11/20 10:02 Antibody Screen Negative 09/11/20 10:02 Crossmatch See Detail 09/11/20 10:02 ASSESSMENT/PLAN: 59 y/o F PMHx NSCLC (on Tagrisso) complicated by malignant Rt pleural effusion, HTN, HLD, GERD. Recently discharged from [facility] for Sepsis requiring chest tube placement having completed a course of ABx, presented for IV Hydration and admitted for persistent YOUSUF despite hydration. IV Hydration has since been stopped due to development of pleural effusions on imaging. #YOUSUF, improving -FeNa 2.3% consisted with intrarenal causes, Likely also component of Pre-Renal -Nephrology evaluation appreciated -Continue IV Hydration #NSCLC -Continue Osimertinib -Vac placed by general surgery -ABx as per ID -DVT PPx #Anemia -Possibly Anemia of chonic inflamation vs Bone marrow suppression from Osimertin ib use -Transfuse to keep Hgb > 7.0 Visit type - Emergency Visit Emergency Visit: Yes ED Registration Date: 09/05/20 Care time: The patient presented to the Emergency Department on the above date and was hospitalized for further evaluation of their emergent condition. - New Patient This patient is new to me today: No - Critical Care Critical Care patient: No - Discharge Referral Referred to [facility] Med P.C.: No ATTENDING PHYSICIAN STATEMENT I saw and evaluated the patient. I reviewed the resident's note and discussed the case with the resident. I agree with the resident's findings and plan as documented. SUBJECTIVE: OBJECTIVE: ASSESSMENT AND PLAN:
[2020-09-12] MEDS: FAMOTIDINE 10 MG TABLET PO SCH (10:20)
[2020-09-12] MEDS: HEPARIN NA (PORCINE) 5,000 UNITS/ML 1ML VIAL SQ SCH ×2 (10:20→21:21)
[2020-09-12] MEDS: DOXYCYCLINE HYCLATE 100 MG CAPSULE PO SCH ×2 (10:20→17:15)
[2020-09-12] MEDS: ASPIRIN 81 MG CHEWABLE TABLETS PO SCH (10:20)
[2020-09-12] MEDS: LACTOBACILLUS ACIDOPHILUS 1 TABLET PO SCH (10:20)
[2020-09-12] MEDS: SODIUM BICARBONATE 650 MG TABLET PO SCH (10:20)
--- NOTE | 2020-09-12 10:25 | PN ---
Progress Note, Physician History of Present Illness: patient stable awaiting drainage of the wound - Current Medication List Current Medications: Active Medications Acetaminophen (Tylenol -) 500 mg PO Q6H PRN PRN Reason: PAIN LEVEL 1-5 Aspirin (Asa -) 81 mg PO DAILY [facility] Last Admin: 09/12/20 10:20 Dose: 81 mg Documented by: Atorvastatin Calcium (Lipitor -) 10 mg PO HS [facility] Last Admin: 09/11/20 22:19 Dose: 10 mg Documented by: Bacitracin (Bacitracin -) 1 applic TP BID [facility] Last Admin: 09/11/20 22:19 Dose: Not Given Documented by: Doxycycline Hyclate (Vibramycin -) 100 mg PO BID@1000,1800 [facility] Last Admin: 09/12/20 10:20 Dose: 100 mg Documented by: Famotidine (Acid Folder Taper Operator) 10 mg PO DAILY [facility] Last Admin: 09/12/20 10:20 Dose: 10 mg Documented by: Fentanyl (Sublimaze Injection -) 25 mcg IVPUSH [id number] PRN PRN Reason: PAIN-PACU ORDER X 4 DOSES ONLY Heparin Sodium (Porcine) (Heparin -) 5,000 unit SQ BID [facility] Last Admin: 09/12/20 10:20 Dose: 5,000 unit Documented by: Aztreonam 1 gm/ Dextrose 50 mls @ 100 mls/hr IVPB Q12H [facility]; Protocol Last Admin: 09/12/20 02:05 Dose: 100 mls/hr Documented by: Lactated Ringer's (Lactated Ringers Solution) 1,000 mls @ 125 mls/hr IV ASDIR [facility] Last Admin: 09/11/20 16:42 Dose: Not Given Documented by: Lactobacillus Acidophilus (Bacid -) 1 tab PO DAILY [facility] Last Admin: 09/12/20 10:20 Dose: 1 tab Documented by: Metoprolol Succinate (Toprol Xl -) 50 mg PO DAILY [facility] Last Admin: 09/12/20 10:20 Dose: 50 mg Documented by: Nf- Osimertinib 80mg (Tablets) 1 each PO DAILY [facility] Last Admin: 09/11/20 22:19 Dose: 1 each Documented by: Ondansetron HCl (Zofran Odt -) 4 mg SL Q8H PRN PRN Reason: NAUSEA Oxycodone HCl (Roxicodone -) 5 mg PO Q4H PRN PRN Reason: PAIN LEVEL 6-10 Sodium Bicarbonate (Sodium Bicarbonate -) 650 mg PO DAILY [facility] Last Admin: 09/12/20 10:20 Dose: 650 mg Documented by: - Objective Vital Signs: Vital Signs Temperature 98.1 F 09/12/20 06:00 Pulse Rate 81 09/12/20 06:00 Respiratory Rate 20 09/12/20 06:00 Blood Pressure 113/63 09/12/20 06:00 O2 Sat by Pulse Oximetry (%) 93 L 09/12/20 06:00 Constitutional: Yes: No Distress, Calm Cardiovascular: Yes: S1, S2 Respiratory: Yes: Regular, Other (decreased in left lower lobes) Gastrointestinal: Yes: Normal Bowel Sounds, Soft Musculoskeletal: Yes: WNL Extremities: Yes: WNL Neurological: Yes: Alert, Oriented Psychiatric: Yes: Alert, Oriented Labs: CBC, BMP 09/12/20 08:59 09/12/20 08:59 Assessment/Plan Problem List - Problems (1) Lung cancer Code(s): C34.90 - MALIGNANT NEOPLASM OF UNSP PART OF UNSP BRONCHUS OR LUNG Qualifiers: Laterality: unspecified laterality Lung location: unspecified part of lung Qualified Code(s): C34.90 - Malignant neoplasm of unspecified part of unspecified bronchus or lung (2) Malignant pleural effusion Code(s): J91.0 - MALIGNANT PLEURAL EFFUSION (4) Trapped lung Code(s): J98.19 - OTHER PULMONARY COLLAPSE (5) Soft tissue infection Code(s): L08.9 - LOCAL INFECTION OF THE SKIN AND SUBCUTANEOUS TISSUE, UNSP Assessment/Plan Wound infection/ cellulitis Recent Empyema s/p chest tube YOUSUF Lung CA with mets Trapped Lung plan ct abx monitor wound drainage await for cx report will need drainage of th empyema
--- NOTE | 2020-09-12 11:26 | PN ---
Progress Note (short form) - Note Progress Note: Resting in NAD. Reports breathing feels stable. VAC in place. No acute events overnight. Intake & Output 09/09/20 09/10/20 09/11/20 09/12/20 23:59 23:59 23:59 23:59 Intake Total 508 921 3842 Output Total 5 Balance 700 943 6074 Last Vital Signs Temp Pulse Resp BP Pulse Ox 98.1 F 81 20 113/63 93 L 09/12/20 06:00 09/12/20 06:00 09/12/20 06:00 09/12/20 06:00 09/12/20 06:00 Active Medications Acetaminophen (Tylenol -) 500 mg PO Q6H PRN PRN Reason: PAIN LEVEL 1-5 Aspirin (Asa -) 81 mg PO DAILY [facility] Last Admin: 09/12/20 10:20 Dose: 81 mg Documented by: Atorvastatin Calcium (Lipitor -) 10 mg PO HS [facility] Last Admin: 09/11/20 22:19 Dose: 10 mg Documented by: Bacitracin (Bacitracin -) 1 applic TP BID [facility] Last Admin: 09/11/20 22:19 Dose: Not Given Documented by: Doxycycline Hyclate (Vibramycin -) 100 mg PO BID@1000,1800 [facility] Last Admin: 09/12/20 10:20 Dose: 100 mg Documented by: Famotidine (Acid Utility Clerk) 10 mg PO DAILY [facility] Last Admin: 09/12/20 10:20 Dose: 10 mg Documented by: Fentanyl (Sublimaze Injection -) 25 mcg IVPUSH [id number] PRN PRN Reason: PAIN-PACU ORDER X 4 DOSES ONLY Heparin Sodium (Porcine) (Heparin -) 5,000 unit SQ BID [facility] Last Admin: 09/12/20 10:20 Dose: 5,000 unit Documented by: Aztreonam 1 gm/ Dextrose 50 mls @ 100 mls/hr IVPB Q12H [facility]; Protocol Last Admin: 09/12/20 02:05 Dose: 100 mls/hr Documented by: Lactated Ringer's (Lactated Ringers Solution) 1,000 mls @ 125 mls/hr IV ASDIR [facility] Last Admin: 09/11/20 16:42 Dose: Not Given Documented by: Lactobacillus Acidophilus (Bacid -) 1 tab PO DAILY [facility] Last Admin: 09/12/20 10:20 Dose: 1 tab Documented by: Metoprolol Succinate (Toprol Xl -) 50 mg PO DAILY [facility] Last Admin: 09/12/20 10:20 Dose: 50 mg Documented by: Nf- Osimertinib 80mg (Tablets) 1 each PO DAILY [facility] Last Admin: 09/11/20 22:19 Dose: 1 each Documented by: Ondansetron HCl (Zofran Odt -) 4 mg SL Q8H PRN PRN Reason: NAUSEA Oxycodone HCl (Roxicodone -) 5 mg PO Q4H PRN PRN Reason: PAIN LEVEL 6-10 Sodium Bicarbonate (Sodium Bicarbonate -) 650 mg PO DAILY [facility] Last Admin: 09/12/20 10:20 Dose: 650 mg Documented by: Constitutional: Yes: Calm Eyes: Yes: EOM Intact HENT: Yes: Normocephalic Neck: Yes: Trachea Midline Cardiovascular: Yes: Regular Rate and Rhythm Respiratory: Yes: Diminished/Dullness at the left base Gastrointestinal: Yes: Normal Bowel Sounds Edema: No Labs: Laboratory Results - last 24 hr 09/11/20 09/12/20 09/12/20 10:02 08:59 08:59 WBC 10.1 H RBC 4.04 Hgb 10.3 L Hct 31.9 L D MCV 78.9 L MCH 25.4 L MCHC 32.2 RDW 16.5 H Plt Count 286 MPV 10.1 Absolute Neuts (auto) 8.5 H Neutrophils % 83.5 H Lymphocytes % 7.7 L D Monocytes % 7.3 Eosinophils % 1.0 Basophils % 0.5 Nucleated RBC % 0 Sodium 142 Potassium 4.0 Chloride 107 Carbon Dioxide 25 Anion Gap 10 BUN 24.0 H Creatinine 1.7 H Est GFR (CKD-EPI)AfAm 37.34 Est GFR (CKD-EPI)NonAf 32.21 Random Glucose 105 Calcium 8.4 L Phosphorus 3.3 Magnesium 1.8 Blood Type A POSITIVE Antibody Screen Negative Crossmatch See Detail Imaging - Results Chest X-ray: Report Reviewed, Image Reviewed Problem List - Problems (1) Lung cancer Code(s): C34.90 - MALIGNANT NEOPLASM OF UNSP PART OF UNSP BRONCHUS OR LUNG Qualifiers: Laterality: unspecified laterality Lung location: unspecified part of lung Qualified Code(s): C34.90 - Malignant neoplasm of unspecified part of unspecified bronchus or lung (2) Malignant pleural effusion Code(s): J91.0 - MALIGNANT PLEURAL EFFUSION (3) Trapped lung Code(s): J98.19 - OTHER PULMONARY COLLAPSE (4) Anxiety Code(s): F41.9 - ANXIETY DISORDER, UNSPECIFIED (5) Soft tissue infection Code(s): L08.9 - LOCAL INFECTION OF THE SKIN AND SUBCUTANEOUS TISSUE, UNSP Assessment/Plan S/P Left VAC EMPYEMA LEFT PLEURAL SPACE Left Sub-pulmonic collection VAC dressing Supplemental O2 as needed Pro-biotic VTE prophylaxis ABX per ID Dr Damon
[2020-09-12] MEDS: BACITRACIN 15 GM TUBE TOPICAL OINTMENT TP SCH ×2 (12:06→21:21)
--- NOTE | 2020-09-12 13:23 | PN ---
Physical Exam: SUBJECTIVE: Patient seen and examined this morning, stated she had difficulty sleeping. Has wound vac in place on lateral back. No reported bowel movement. Denies any F/C, N/V, LUCIA, CP, SoB. OBJECTIVE: Vital Signs Period Temp Pulse Resp BP Sys/Gonzalez Pulse Ox Last 24 Hr 97.3 F-98.4 F 71-85 12-20 113-139/63-78 93-100 GENERAL: Baseline minimal mental impairment. The patient is awake, alert, and fully oriented, in no acute distress. HEAD: Normal with no signs of trauma. EYES: PERRL, extraocular movements intact, sclera anicteric, conjunctiva clear. No ptosis. ENT: Ears normal, nares patent, oropharynx clear without exudates, moist mucous membranes. NECK: Trachea midline, full range of motion, supple. LUNGS: Breath sounds diminished on left side, clear to auscultation bilaterally, no wheezes, no crackles, no accessory muscle use. HEART: Regular rate and rhythm, S1, S2 without murmur, rub or gallop. CHEST: Wound vac in place draining minimal serosanguinous fluid. Area mildly swolen, but nontender, and no warmth. ABDOMEN: Soft, nontender, nondistended, normoactive bowel sounds, no guarding EXTREMITIES: 2+ pulses, warm, well-perfused, no edema. NEUROLOGICAL: Normal speech, gait not observed. PSYCH: Normal mood, normal affect. SKIN: Warm, dry, normal turgor, no rashes or lesions except as noted above. Laboratory Results - last 24 hr CBC, BMP 09/12/20 08:59 09/12/20 08:59 Active Medications Generic Name Dose Route Start Last Admin Trade Name Freq PRN Reason Stop Dose Admin Acetaminophen 500 mg 09/11/20 14:39 Tylenol - PO Q6H PRN PAIN LEVEL 1-5 Aspirin 81 mg 09/12/20 10:00 09/12/20 10:20 Asa - PO 81 mg DAILY [facility] Administration Atorvastatin Calcium 10 mg 09/11/20 22:00 09/11/20 22:19 Lipitor - PO 10 mg HS [facility] Administration Bacitracin 1 applic 09/11/20 22:00 09/12/20 12:06 Bacitracin - TP Not Given BID [facility] Doxycycline Hyclate 100 mg 09/11/20 18:00 09/12/20 10:20 Vibramycin - PO 100 mg BID@1000,1800 [facility] Administration Famotidine 10 mg 09/12/20 10:00 09/12/20 10:20 Acid Barrel Repairer PO 10 mg DAILY [facility] Administration Fentanyl 25 mcg 09/11/20 15:16 Sublimaze Injection - IVPUSH [id number] PRN PAIN-PACU ORDER X 4 DOSES ONLY Heparin Sodium (Porcine) 5,000 unit 09/11/20 22:00 09/12/20 10:20 Heparin - SQ 5,000 unit BID [facility] Administration Aztreonam 1 gm/ Dextrose 50 mls @ 100 mls/hr 09/12/20 01:30 09/12/20 02:05 IVPB 100 mls/hr Q12H [facility] Administration Protocol Lactated Ringer's 1,000 mls @ 125 mls/hr 09/11/20 15:30 09/11/20 16:42 Lactated Ringers Solution IV Not Given ASDIR [facility] Lactobacillus Acidophilus 1 tab 09/12/20 10:00 09/12/20 10:20 Bacid - PO 1 tab DAILY [facility] Administration Metoprolol Succinate 50 mg 09/12/20 10:00 09/12/20 10:20 Toprol Xl - PO 50 mg DAILY [facility] Administration Nf- Osimertinib 80mg 1 each 09/11/20 22:00 09/11/20 22:19 Tablets PO 1 each DAILY [facility] Administration Ondansetron HCl 4 mg 09/11/20 14:39 Zofran Odt - SL Q8H PRN NAUSEA Oxycodone HCl 5 mg 09/11/20 16:13 Roxicodone - PO Q4H PRN PAIN LEVEL 6-10 Sodium Bicarbonate 650 mg 09/12/20 10:00 09/12/20 10:20 Sodium Bicarbonate - PO 650 mg DAILY [facility] Administration ASSESSMENT/PLAN: 59 yo F w/ PMHx of NSCLC w/ EGFR mutation on Tagrisso recently admitted for persistent loculated pleural effusion following pleurex tube removal w/ dc on Cl indamycin and Augmentin (ptn reports stopping medication on 09/04) presents from clinic 2/2 creatinine of 2.6 (baseline 0.9) which did not resolve with outpatient IV hydration. Admitted for YOUSUF and likely empyema. ACUTE KIDNEY INJURY: r/o PRE-RENAL vs INTRINSIC 2/2 ABX -Cr. 2.6 --> 2.2 --> 1.9 -> 1.7 (baseline 0.9) -UA: Neg LE/Nit; WBC 24; Total protein 84 -Per Nephro: -LD: 233 -CK: 115 -Haptoglobin: 550 (mildly elevated) -FeNa 2.3% (consistent with tubular injury) -If Cr continues to downtrend, can defer renal biopsy R/O RECURRENT EMPYEMA (LEFT PLEURAL SPACE) w/ CONTINUED DENSITY IN PTN W/ HISTORY OF MALIGNANT EFFUSION -Afebrile, low WBC (10.1) -Per Gen Surg: I&D done in OR w/ vac placement. Sinus tract; no communication w/ the chest cavity POD 1. -Per Thoracic Surg conversation: Repeat CT 3-6 weeks. Continue w/ abx which are sensitive to chest wall wound cultures for management of pleural effusion, same etiology. -Per ID: -c/w Doxycycline 100mg BID - Day 3 -c/w Aztreonam 1gm q12 - Day 3 -FU wound culture -Oxycodone 5mg Q4 PRN pain RECENT EPISODE OF DIARRHEA -c/w Bacid -c/w sodium bicarb 650mg qDaily -Monitor electrolytes for repletion 2/2 GI loss HISTORY OF SYPHILLIS UNKNOWN IF TREATED -Syphylis Serology Reactive -Titer 1:1 -Hx of intellectual disability -Per ID: Will consider treatment for latent infection once ptn stable ANEMIA r/o CHRONIC DISEASE vs. BONE MARROW SUPPRESSION -Per Heme Onc: -History of NSCLC -c/w Tagrisso -Anemia 2/2 r/o chronic inflammation vs. bone marrow supression -Transfuse to keep Hbg > 7.0 -FOBT Negative HX OF NON SMALL CELL LUNG CANCER W/ EGFR MUTATION -Followed by Dr. Guallpa -c/w Osimertinib per Heme/Onc HISTORY OF HTN -Metoprolol 50mg Daily -Monitor VS HISTORY OF HYPERLIPIDEMIA -c/w Lipitor 10mg q daily -Hep A/B/C: Negative HISTORY OF GERD -c/w Famotidine 10mg FEN -LR @ 125 -Lytes -Regular diet PPx -DVT: Heparin 5000 BID -GI: Famotidine 10mg qdaily Visit type - Emergency Visit Emergency Visit: No - New Patient This patient is new to me today: No - Critical Care Critical Care patient: No - Discharge Referral Referred to [facility] Med P.C.: No ATTENDING PHYSICIAN STATEMENT I saw and evaluated the patient. I reviewed the resident's note and discussed the case with the resident. I agree with the resident's findings and plan as documented. SUBJECTIVE: OBJECTIVE: ASSESSMENT AND PLAN:
--- NOTE | 2020-09-12 13:59 | PN ---
Progress Note, Physician History of Present Illness: Seen and examined at the bedside awake and alert denies any fever, chills, shortness of breath, cough or chest pain s/p debridement of chest wound yesterday, VAC dressing in place making urine - Current Medication List Current Medications: Active Medications Acetaminophen (Tylenol -) 500 mg PO Q6H PRN PRN Reason: PAIN LEVEL 1-5 Aspirin (Asa -) 81 mg PO DAILY [facility] Last Admin: 09/12/20 10:20 Dose: 81 mg Documented by: Atorvastatin Calcium (Lipitor -) 10 mg PO HS [facility] Last Admin: 09/11/20 22:19 Dose: 10 mg Documented by: Bacitracin (Bacitracin -) 1 applic TP BID [facility] Last Admin: 09/12/20 12:06 Dose: Not Given Documented by: Doxycycline Hyclate (Vibramycin -) 100 mg PO BID@1000,1800 [facility] Last Admin: 09/12/20 10:20 Dose: 100 mg Documented by: Famotidine (Acid Test Engine Operator) 10 mg PO DAILY [facility] Last Admin: 09/12/20 10:20 Dose: 10 mg Documented by: Fentanyl (Sublimaze Injection -) 25 mcg IVPUSH [id number] PRN PRN Reason: PAIN-PACU ORDER X 4 DOSES ONLY Heparin Sodium (Porcine) (Heparin -) 5,000 unit SQ BID [facility] Last Admin: 09/12/20 10:20 Dose: 5,000 unit Documented by: Aztreonam 1 gm/ Dextrose 50 mls @ 100 mls/hr IVPB Q12H [facility]PL[facility]; Protocol Last Admin: 09/12/20 02:05 Dose: 100 mls/hr Documented by: Lactated Ringer's (Lactated Ringers Solution) 1,000 mls @ 125 mls/hr IV ASDIR REPLACED [facility] Last Admin: 09/11/20 16:42 Dose: Not Given Documented by: Lactobacillus Acidophilus (Bacid -) 1 tab PO DAILY [facility] Last Admin: 09/12/20 10:20 Dose: 1 tab Documented by: Metoprolol Succinate (Toprol Xl -) 50 mg PO DAILY [facility] Last Admin: 09/12/20 10:20 Dose: 50 mg Documented by: Nf- Osimertinib 80mg (Tablets) 1 each PO DAILY [facility] Last Admin: 09/11/20 22:19 Dose: 1 each Documented by: Ondansetron HCl (Zofran Odt -) 4 mg SL Q8H PRN PRN Reason: NAUSEA Oxycodone HCl (Roxicodone -) 5 mg PO Q4H PRN PRN Reason: PAIN LEVEL 6-10 Sodium Bicarbonate (Sodium Bicarbonate -) 650 mg PO DAILY [facility] Last Admin: 09/12/20 10:20 Dose: 650 mg Documented by: - Objective Vital Signs: Vital Signs Temperature 97.7 F 09/12/20 13:35 Pulse Rate 66 09/12/20 13:35 Respiratory Rate 20 09/12/20 13:35 Blood Pressure 128/70 09/12/20 13:35 O2 Sat by Pulse Oximetry (%) 93 L 09/12/20 13:35 Constitutional: Yes: No Distress, Calm HENT: Yes: Atraumatic Neck: Yes: Supple Gastrointestinal: Yes: Soft Extremities: No: Cyanosis Edema: No Labs: CBC, BMP 09/12/20 08:59 09/12/20 08:59 Assessment/Plan 59 year old woman with history of lung cancer on chemotherapy, hypertension, hyperlipidemia who presents with abnormal renal function. 1. Acute kidney injury from suspected AIN 2. Lung cancer 3. Sepsis/Pneumonia 4. Hypertension 5. Hyperlipidemia Renal function improved from Cr of 2.7 to 1.7 Given improvement in renal function will defer renal biopsy for now FeNa was 2.3% (consistent with tubular injury) US showed no obstruction but echogenicity consistent with CKD UA showed 24 WBC, eosinophils negative no peripheral eosinophilia noted. Cultures from this admission are negative s/p debridement of chest wound, VAC in place ? need for thoracentesis oral intake as tolerated Zofran PRN IR/CT surgery follow up KLAUDIA negative, ANCA pending, LDH WNL, Haptolgobin slightly elevated. Trend renal function daily. There is no acute need for renal replacement therapy. trend H/H, transfuse as needed Darryl Vazquez DO
--- NOTE | 2020-09-12 14:37 | PN ---
Teaching Attending Note Name of Resident: Rosetta Lawrence ATTENDING PHYSICIAN STATEMENT I saw and evaluated the patient. I reviewed the resident's note and discussed the case with the resident. I agree with the resident's findings and plan as documented. : 59F with EGFR metastatic Lung Adeno on Tagris[place] with recent admission for loculated pleural effusion requiring chest tube placement c/b sepsis (now resolved) with dc on clinda and augmentin presents from outpt clinic for YOUSUF (cr 2.6, baseline 0.9) which did not resolve with outpatient hydration. Her creatinine is slowly improving (1.7 today). Wound vac with only minimal output (less than 50cc) Tagrisso restarted yesterday, to be continued as well on dc.
--- NOTE | 2020-09-12 15:15 | PN ---
Teaching Attending Note Name of Resident: Wilfredo Roa ATTENDING PHYSICIAN STATEMENT I saw and evaluated the patient. I reviewed the resident's note and discussed the case with the resident. I agree with the resident's findings and plan as documented. SUBJECTIVE: Patient feels well, had vac placed yesterday with Sx service OBJECTIVE: Vital Signs Period Temp Pulse Resp BP Sys/Gonzalez Pulse Ox Last 24 Hr 97.7 F-98.4 F 66-85 14-20 113-139/63-78 93-100 Physical exam as noted in Resident note ASSESSMENT AND PLAN: 59 y/o F with Hx of HTN, HLD, GERD< Metastatic Non-Small Cell Lung CA, EGFR + Stage IV adenoCA on Tagrisso who presents with YOUSUF YOUSUF: Dolly multifactorial Pre Renal as well as intrinsic renal Could be new baseline Improved from admission Continue IVF US suggest medical renal disease continue to monitor Cr cont bicarb NSC Lung Ca with loculated effusion noted cont Tagrisso at this time Patient will need to be monitored for the pleural effusion as there is no surgical plan at this time, will defer duration of Abx to ID, Pending Cultures Anemia: Dolly in setting of chronic disease HTN Cont metoprolol HLD Statin GERD PPI
[2020-09-12] MEDS: LACTATED RINGERS SOLUTION 1,000 ML IV SCH (17:09)
[2020-09-12] MEDS: OSIMERTINIB 80 MG PO SCH (17:16)
[2020-09-12] MEDS: ATORVASTATIN CA 10 MG TABLET (FP) PO SCH (21:21)
[2020-09-12] MEDS: ACETAMINOPHEN 500 MG TABLET (FP) PO PRN (21:28)
[2020-09-13] MEDS ORDERED: DEXTROSE 5%-WATER - 50 ML IVPB ONE (00:22)
[2020-09-13] MEDS ORDERED: AZTREONAM 1 GM VIAL (RESTRICTED TO ID) ONE (00:22)
[2020-09-13] MEDS: AZTREONAM 1 GM in DEXTROSE 5%-WATER - 50 ML IVPB SCH (01:37)
[2020-09-13 07:56] LABS: POTASSIUM 3.4 mmol/L (3.5-5.1)
[2020-09-13 08:05] LABS: BLOOD UREA NITROGEN 25.7 mg/dL (7-18); CREATININE 1.6 mg/dL (0.55-1.3)
[2020-09-13] MEDS ORDERED: POTASSIUM CHLORIDE TABS 20 MEQ TABLET.ER (FP) PO ONE (09:00)
--- NOTE | 2020-09-13 09:43 | PN ---
Progress Note (short form) - Note Progress Note: GENERAL SURGERY POD #2 s/p I and D and debridement of left chest wound and application of VAC dressing. Alert. Sitting up eating breakfast. No complaints. AVSS. Afebrile. Gen: nad Lt Cx Wall: VAC at 125 mmHg (m-w-) Problem List - Problems (1) Soft tissue infection Assessment/Plan: 59 yo f/ s/p Left chest wall soft tissue debridement and application of wound VAC. - to be changed by patient's RN today - Will be going to REHAB facility with VAC capabilities. - VAC -- - Cont care per medical team - Surgery signing off - Patient instructed to f/u with Dr. Aragon in his office in 7-[address] behalf of Dr. aragon, thank you for the opportunity to participate in your patient's care. Code(s): L08.9 - LOCAL INFECTION OF THE SKIN AND SUBCUTANEOUS TISSUE, UNSP (2) Chronic diastolic (congestive) heart failure Code(s): I50.32 - CHRONIC DIASTOLIC (CONGESTIVE) HEART FAILURE (3) Malignant pleural effusion Code(s): J91.0 - MALIGNANT PLEURAL EFFUSION (4) Anxiety Code(s): F41.9 - ANXIETY DISORDER, UNSPECIFIED
[2020-09-13] MEDS: FAMOTIDINE 10 MG TABLET PO SCH (10:08)
[2020-09-13] MEDS: BACITRACIN 15 GM TUBE TOPICAL OINTMENT TP SCH ×2 (10:08→22:02)
[2020-09-13] MEDS: LACTOBACILLUS ACIDOPHILUS 1 TABLET PO SCH (10:08)
[2020-09-13] MEDS: ASPIRIN 81 MG CHEWABLE TABLETS PO SCH (10:08)
[2020-09-13] MEDS: OSIMERTINIB 80 MG PO SCH (10:09)
[2020-09-13] MEDS: SODIUM BICARBONATE 650 MG TABLET PO SCH (10:09)
[2020-09-13] MEDS: HEPARIN NA (PORCINE) 5,000 UNITS/ML 1ML VIAL SQ SCH ×2 (10:09→22:02)
[2020-09-13] MEDS: DOXYCYCLINE HYCLATE 100 MG CAPSULE PO SCH ×2 (10:10→18:40)
[2020-09-13 10:52] LABS: BASO % 0.6 % (0-2.0); EOS % 2.1 % (0-4.5); HEMATOCRIT 26.8 % (32.4-45.2); HEMOGLOBIN 8.7 GM/dL (10.7-15.3); LYMPH % 10.1 % (8-40); MCH 25.7 pg (25.7-33.7); MCHC 32.5 g/dl (32.0-36.0); MEAN PLT VOLUME 10.5 fl (7.5-11.1); MONO % 9.2 % (3.8-10.2); PLATELET COUNT 241 K/MM3 (134-434); RDW 16.4 % (11.6-15.6); WHITE BLOOD COUNT 7.3 K/mm3 (4.0-10.0)
--- NOTE | 2020-09-13 11:07 | PN ---
Progress Note, Physician History of Present Illness: stable no new issues - Current Medication List Current Medications: Active Medications Acetaminophen (Tylenol -) 500 mg PO Q6H PRN PRN Reason: PAIN LEVEL 1-5 Last Admin: 09/12/20 21:28 Dose: 500 mg Documented by: Aspirin (Asa -) 81 mg PO DAILY [facility] Last Admin: 09/13/20 10:08 Dose: 81 mg Documented by: Atorvastatin Calcium (Lipitor -) 10 mg PO HS [facility] Last Admin: 09/12/20 21:21 Dose: 10 mg Documented by: Bacitracin (Bacitracin -) 1 applic TP BID [facility] Last Admin: 09/13/20 10:08 Dose: 1 applic Documented by: Doxycycline Hyclate (Vibramycin -) 100 mg PO BID@1000,1800 [facility] Last Admin: 09/13/20 10:10 Dose: 100 mg Documented by: Famotidine (Acid Health Informatics Specialist) 10 mg PO DAILY [facility] Last Admin: 09/13/20 10:08 Dose: 10 mg Documented by: Fentanyl (Sublimaze Injection -) 25 mcg IVPUSH [id number] PRN PRN Reason: PAIN-PACU ORDER X 4 DOSES ONLY Heparin Sodium (Porcine) (Heparin -) 5,000 unit SQ BID [facility] Last Admin: 09/13/20 10:09 Dose: 5,000 unit Documented by: Lactated Ringer's (Lactated Ringers Solution) 1,000 mls @ 125 mls/hr IV ASDIR [facility] Last Admin: 09/12/20 17:09 Dose: Not Given Documented by: Lactobacillus Acidophilus (Bacid -) 1 tab PO DAILY [facility] Last Admin: 09/13/20 10:08 Dose: 1 tab Documented by: Metoprolol Succinate (Toprol Xl -) 50 mg PO DAILY [facility] Last Admin: 09/13/20 10:09 Dose: 50 mg Documented by: Nf- Osimertinib 80mg (Tablets) 1 each PO DAILY [facility] Last Admin: 09/13/20 10:09 Dose: Not Given Documented by: Ondansetron HCl (Zofran Odt -) 4 mg SL Q8H PRN PRN Reason: NAUSEA Oxycodone HCl (Roxicodone -) 5 mg PO Q4H PRN PRN Reason: PAIN LEVEL 6-10 Sodium Bicarbonate (Sodium Bicarbonate -) 650 mg PO DAILY [facility] Last Admin: 09/13/20 10:09 Dose: 650 mg Documented by: - Objective Vital Signs: Vital Signs Temperature 97 F L 09/13/20 09:48 Pulse Rate 91 H 09/13/20 09:48 Respiratory Rate 18 09/13/20 09:48 Blood Pressure 124/67 09/13/20 09:48 O2 Sat by Pulse Oximetry (%) 92 L 09/13/20 09:48 Constitutional: Yes: No Distress, Calm Eyes: Yes: Conjunctiva Clear Cardiovascular: Yes: Regular Rate and Rhythm Respiratory: Yes: Regular, CTA Bilaterally Gastrointestinal: Yes: Normal Bowel Sounds, Soft Musculoskeletal: Yes: WNL Extremities: Yes: Other Neurological: Yes: Alert, Oriented Psychiatric: Yes: Alert, Oriented Labs: CBC, BMP 09/13/20 06:31 Assessment/Plan Problem List - Problems (1) Lung cancer Code(s): C34.90 - MALIGNANT NEOPLASM OF UNSP PART OF UNSP BRONCHUS OR LUNG Qualifiers: Laterality: unspecified laterality Lung location: unspecified part of lung Qualified Code(s): C34.90 - Malignant neoplasm of unspecified part of unspecified bronchus or lung (2) Malignant pleural effusion Code(s): J91.0 - MALIGNANT PLEURAL EFFUSION (4) Trapped lung Code(s): J98.19 - OTHER PULMONARY COLLAPSE (5) Soft tissue infection Code(s): L08.9 - LOCAL INFECTION OF THE SKIN AND SUBCUTANEOUS TISSUE, UNSP Assessment/Plan Wound infection/ cellulitis Recent Empyema s/p chest tube YOUSUF Lung CA with mets Trapped Lung plan cx reports noted will stop aztreonam continue doxy
--- NOTE | 2020-09-13 14:47 | PN ---
Physical Exam: SUBJECTIVE: Patient seen and examined, visibly crying, upset that her birthday is coming up and she will be in the hospital. Is aware that she will need help with wound vac, and that her parents can not help her 2/2 advanced age. Does not want to be in hospital anymore. OBJECTIVE: Vital Signs Period Temp Pulse Resp BP Sys/Gonzalez Pulse Ox Last 24 Hr 97 F-97.8 F 77-91 18-18 120-124/63-76 92-96 GENERAL: Baseline minimal mental impairment. The patient is awake, alert, and fully oriented, in no acute distress. HEAD: Normal with no signs of trauma. EYES: PERRL, extraocular movements intact, sclera anicteric, conjunctiva clear. No ptosis. ENT: Ears normal, nares patent, oropharynx clear without exudates, moist mucous membranes. NECK: Trachea midline, full range of motion, supple. LUNGS: Breath sounds diminished on left side. no wheezes, no crackles, no accessory muscle use. HEART: Regular rate and rhythm, S1, S2 without murmur, rub or gallop. CHEST: Wound vac in place draining minimal serosanguinous fluid. ABDOMEN: Soft, nontender, nondistended, normoactive bowel sounds, no guarding EXTREMITIES: 2+ pulses, warm, well-perfused, no edema. NEUROLOGICAL: Normal speech, gait not observed. PSYCH: Sad mood SKIN: Warm, dry, normal turgor, no rashes or lesions except as noted above. Laboratory Results - last 24 hr CBC, BMP 09/13/20 06:41 09/13/20 06:31 Active Medications Generic Name Dose Route Start Last Admin Trade Name Enoch PRN Reason Stop Dose Admin Acetaminophen 500 mg 09/11/20 14:39 09/12/20 21:28 Tylenol - PO 500 mg Q6H PRN Administration PAIN LEVEL 1-5 Aspirin 81 mg 09/12/20 10:00 09/13/20 10:08 Asa - PO 81 mg DAILY [facility] Administration Atorvastatin Calcium 10 mg 09/11/20 22:00 09/12/20 21:21 Lipitor - PO 10 mg HS [facility] Administration Bacitracin 1 applic 09/11/20 22:00 09/13/20 10:08 Bacitracin - TP 1 applic BID [facility] Administration Doxycycline Hyclate 100 mg 09/11/20 18:00 09/13/20 10:10 Vibramycin - PO 100 mg BID@1000,1800 [facility] Administration Famotidine 10 mg 09/12/20 10:00 09/13/20 10:08 Acid Curriculum And Assessment Director PO 10 mg DAILY [facility] Administration Fentanyl 25 mcg 09/11/20 15:16 Sublimaze Injection - IVPUSH [id number] PRN PAIN-PACU ORDER X 4 DOSES ONLY Heparin Sodium (Porcine) 5,000 unit 09/13/20 22:00 Heparin - SQ TID [facility] Lactated Ringer's 1,000 mls @ 125 mls/hr 09/11/20 15:30 09/12/20 17:09 Lactated Ringers Solution IV Not Given ASDIR [facility] Lactobacillus Acidophilus 1 tab 09/12/20 10:00 09/13/20 10:08 Bacid - PO 1 tab DAILY [facility] Administration Metoprolol Succinate 50 mg 09/12/20 10:00 09/13/20 10:09 Toprol Xl - PO 50 mg DAILY [facility] Administration Nf- Osimertinib 80mg 1 each 09/11/20 22:00 09/13/20 10:09 Tablets PO Not Given DAILY [facility] Ondansetron HCl 4 mg 09/11/20 14:39 Zofran Odt - SL Q8H PRN NAUSEA Oxycodone HCl 5 mg 09/11/20 16:13 Roxicodone - PO Q4H PRN PAIN LEVEL 6-10 Sodium Bicarbonate 650 mg 09/12/20 10:00 09/13/20 10:09 Sodium Bicarbonate - PO 650 mg DAILY [facility] Administration ASSESSMENT/PLAN: 59 yo F w/ PMHx of NSCLC w/ EGFR mutation on Tagrisso recently admitted for persistent loculated pleural effusion following pleurex tube removal w/ dc on Clindamycin and Augmentin (ptn reports stopping medication on 09/04) presents from clinic 2/2 creatinine of 2.6 (baseline 0.9) which did not resolve with outpatient IV hydration. Admitted for YOUSUF and likely empyema. ACUTE KIDNEY INJURY: r/o PRE-RENAL vs INTRINSIC 2/2 ABX -Cr. 2.6 --> 2.2 --> 1.9 -> 1.7 -->1.6 (baseline 0.9) -UA: Neg LE/Nit; WBC 24; Total protein 84 -Per Nephro: -Stable for DC w/ outpatient monitoring -LD: 233 -CK: 115 -Haptoglobin: 550 (mildly elevated) -FeNa 2.3% (consistent with tubular injury) -If Cr continues to downtrend, can defer renal biopsy R/O RECURRENT EMPYEMA (LEFT PLEURAL SPACE) w/ CONTINUED DENSITY IN PTN W/ HISTORY OF MALIGNANT EFFUSION -Afebrile, no WBC -Per Gen Surg: -POD 2 s/p I&D w/ vac placement. -Vac: M/W/F -f/u with Dr. Pedraza in his office in 7-10 days -Per Thoracic Surg: Repeat CT 3-6 weeks to follow effusion -Per ID: -c/w Doxycycline 100mg BID - Day 4 -DC Aztreonam -Would Culture: FINAL NO GROWTH -Social Work Consult Placed: -Agreeable to attending SNF wants referral to [facility] and [facility]. Referrals sent. [facility] will continue to follow -Oxycodone 5mg Q4 PRN pain RECENT EPISODE OF DIARRHEA -c/w Bacid -c/w sodium bicarb 650mg qDaily -Monitor electrolytes for repletion 2/2 GI loss HISTORY OF SYPHILLIS UNKNOWN IF TREATED -Syphylis Serology Reactive -Titer 1:1 -Hx of intellectual disability -Per ID: Will consider treatment for latent infection once ptn stable -FU w/ Department of Health. ANEMIA r/o CHRONIC DISEASE vs. BONE MARROW SUPPRESSION -Per Heme Onc: -History of NSCLC -c/w Tagrisso -Anemia 2/2 r/o chronic inflammation vs. bone marrow supression -Transfuse to keep Hbg > 7.0 -FOBT Negative HX OF NON SMALL CELL LUNG CANCER W/ EGFR MUTATION -Followed by Dr. Guallpa -c/w Osimertinib per Heme/Onc HISTORY OF HTN -Metoprolol 50mg Daily -Monitor VS HISTORY OF HYPERLIPIDEMIA -c/w Lipitor 10mg q daily -Hep A/B/C: Negative HISTORY OF GERD -c/w Famotidine 10mg FEN -LR @ 125 -BMP -Regular diet PPx -DVT: Heparin 5000 TID -GI: Famotidine 10mg qdaily DISPO: Continue to monitor on med/surg w/ goal of transfer to SNF Visit type - Emergency Visit Emergency Visit: No - New Patient This patient is new to me today: No - Critical Care Critical Care patient: No - Discharge Referral Referred to [facility] Med P.C.: No ATTENDING PHYSICIAN STATEMENT I saw and evaluated the patient. I reviewed the resident's note and discussed the case with the resident. I agree with the resident's findings and plan as documented. SUBJECTIVE: OBJECTIVE: ASSESSMENT AND PLAN:
--- NOTE | 2020-09-13 14:47 | PN ---
Progress Note (short form) - Note Progress Note: PULMONARY VAC in place. No acute events overnight. VSS/AFEBRILE Constitutional: Yes: Calm Eyes: Yes: EOM Intact HENT: Yes: Normocephalic Neck: Yes: Trachea Midline Cardiovascular: Yes: Regular Rate and Rhythm Respiratory: Yes: Diminished/Dullness at the left base Gastrointestinal: Yes: Normal Bowel Sounds Edema: No Labs: NOTED Chest X-ray: Report Reviewed, Image Reviewed Problem List - Problems (1) Lung cancer Code(s): C34.90 - MALIGNANT NEOPLASM OF UNSP PART OF UNSP BRONCHUS OR LUNG Qualifiers: Laterality: unspecified laterality Lung location: unspecified part of lung Qualified Code(s): C34.90 - Malignant neoplasm of unspecified part of unspecified bronchus or lung (2) Malignant pleural effusion Code(s): J91.0 - MALIGNANT PLEURAL EFFUSION (3) Trapped lung Code(s): J98.19 - OTHER PULMONARY COLLAPSE (4) Anxiety Code(s): F41.9 - ANXIETY DISORDER, UNSPECIFIED (5) Soft tissue infection Code(s): L08.9 - LOCAL INFECTION OF THE SKIN AND SUBCUTANEOUS TISSUE, UNSP S/P Left VAC Left Empyema Left Sub-pulmonic collection VAC dressing Supplemental O2 as needed Pro-biotic VTE prophylaxis ABX Roberto MACE MD Problem List - Problems (1) Lung cancer Code(s): C34.90 - MALIGNANT NEOPLASM OF UNSP PART OF UNSP BRONCHUS OR LUNG Qualifiers: Laterality: unspecified laterality Lung location: unspecified part of lung Qualified Code(s): C34.90 - Malignant neoplasm of unspecified part of unspecified bronchus or lung (2) Malignant pleural effusion Code(s): J91.0 - MALIGNANT PLEURAL EFFUSION (3) Trapped lung Code(s): J98.19 - OTHER PULMONARY COLLAPSE (4) Anxiety Code(s): F41.9 - ANXIETY DISORDER, UNSPECIFIED (5) Soft tissue infection Code(s): L08.9 - LOCAL INFECTION OF THE SKIN AND SUBCUTANEOUS TISSUE, UNSP
--- NOTE | 2020-09-13 16:48 | PN ---
Progress Note, Physician History of Present Illness: Seen and examined at the bedside awake and alert denies any fever, chills, shortness of breath, cough or chest pain upset about having to go to rehab wants to go home making urine appetite is ok no N/V wound VAC remains in place - Current Medication List Current Medications: Active Medications Acetaminophen (Tylenol -) 500 mg PO Q6H PRN PRN Reason: PAIN LEVEL 1-5 Last Admin: 09/12/20 21:28 Dose: 500 mg Documented by: Aspirin (Asa -) 81 mg PO DAILY [facility] Last Admin: 09/13/20 10:08 Dose: 81 mg Documented by: Atorvastatin Calcium (Lipitor -) 10 mg PO HS [facility] Last Admin: 09/12/20 21:21 Dose: 10 mg Documented by: Bacitracin (Bacitracin -) 1 applic TP BID [facility] Last Admin: 09/13/20 10:08 Dose: 1 applic Documented by: Doxycycline Hyclate (Vibramycin -) 100 mg PO BID@1000,1800 [facility] Last Admin: 09/13/20 10:10 Dose: 100 mg Documented by: Famotidine (Acid Senior Water/Wastewater Engineer) 10 mg PO DAILY [facility] Last Admin: 09/13/20 10:08 Dose: 10 mg Documented by: Fentanyl (Sublimaze Injection -) 25 mcg IVPUSH [id number] PRN PRN Reason: PAIN-PACU ORDER X 4 DOSES ONLY Heparin Sodium (Porcine) (Heparin -) 5,000 unit SQ TID [facility] Lactated Ringer's (Lactated Ringers Solution) 1,000 mls @ 125 mls/hr IV ASDIR [facility] Last Admin: 09/12/20 17:09 Dose: Not Given Documented by: Lactobacillus Acidophilus (Bacid -) 1 tab PO DAILY [facility] Last Admin: 09/13/20 10:08 Dose: 1 tab Documented by: Metoprolol Succinate (Toprol Xl -) 50 mg PO DAILY [facility] Last Admin: 09/13/20 10:09 Dose: 50 mg Documented by: Nf- Osimertinib 80mg (Tablets) 1 each PO DAILY [facility] Last Admin: 09/13/20 10:09 Dose: Not Given Documented by: Ondansetron HCl (Zofran Odt -) 4 mg SL Q8H PRN PRN Reason: NAUSEA Oxycodone HCl (Roxicodone -) 5 mg PO Q4H PRN PRN Reason: PAIN LEVEL 6-10 Sodium Bicarbonate (Sodium Bicarbonate -) 650 mg PO DAILY [facility] Last Admin: 09/13/20 10:09 Dose: 650 mg Documented by: - Objective Vital Signs: Vital Signs Temperature 98.6 F 09/13/20 15:24 Pulse Rate 89 09/13/20 15:24 Respiratory Rate 18 09/13/20 15:24 Blood Pressure 132/81 09/13/20 15:24 O2 Sat by Pulse Oximetry (%) 92 L 09/13/20 09:48 Constitutional: Yes: No Distress HENT: Yes: Atraumatic Neck: Yes: Supple Gastrointestinal: Yes: Soft Extremities: No: Cyanosis Edema: No Labs: CBC, BMP 09/13/20 06:41 09/13/20 06:31 Assessment/Plan 59 year old woman with history of lung cancer on chemotherapy, hypertension, hyperlipidemia who presents with abnormal renal function. 1. Acute kidney injury from suspected AIN 2. Lung cancer 3. Sepsis/Pneumonia 4. Hypertension 5. Hyperlipidemia Suspect YOUSUF was from AIN +/- ATN Renal function improved from Cr of 2.7 to 1.6 Given improvement in renal function will defer renal biopsy for now stable for discharge with outpatient monitoring of renal function FeNa was 2.3% (consistent with tubular injury) US showed no obstruction but echogenicity consistent with CKD UA showed 24 WBC, eosinophils negative no peripheral eosinophilia noted. Cultures from this admission are negative s/p debridement of chest wound, VAC in place oral intake as tolerated Zofran PRN IR/CT surgery follow up KLAUDIA negative, ANCA pending, LDH WNL, Haptolgobin slightly elevated. discharge planning as per primary team. Darryl Vazquez DO
--- NOTE | 2020-09-13 18:54 | PN ---
Teaching Attending Note Name of Resident: Wilfredo Roa ATTENDING PHYSICIAN STATEMENT I saw and evaluated the patient. I reviewed the resident's note and discussed the case with the resident. I agree with the resident's findings and plan as documented. SUBJECTIVE: upset she is still here. tired of being away form home . no pain. no SOB . OBJECTIVE: Tearful durian interview. CV: RRR, no MRG Lungs: CTAB Ext: No edema or erythema on LEs Skin: L posterior chest wall with a wound vac, skin around it clean and not erythematous . Abd: soft, NT, ND, nl BS Assessment/Plan: Unfortunate 59 y/o lady with h/o L lung ca, s/p CT removal 08/15/20 , HTN, HLP, L malignant pleural effusion, recent admission to [facility] for an infected chest wall . she presented this time with YOUSUF and was found to have L sided chest wall infection /abscess 1- YOUSUF : improved 2- L chest wall infection with collection 3- malignant L pleural effusion 4- H/o HTN Plan: - dc IVF . cont oral hydration - imaging reviewed. - cont wound vac. - cont doxy . - f/u with thoracic sx for pleural effusion - cont BB - replete K. dispo :she agreed to SNF placement -
[2020-09-13] MEDS: LACTATED RINGERS SOLUTION 1,000 ML IV SCH (19:17)
--- NOTE | 2020-09-13 19:26 | PATH ---
Surgical Pathology Report Patient Name: LATOYA BO Med. Rec. #: [id number] /Age/Gender: 1960 (Age: 59) / F Account: [id number] Location: [facility] MED/SURG Taken: 09/11/2020 Received: 09/12/2020 Reported: 09/13/2020 Physicians: MD Selin Summers M.D. Specimen(s) Received LEFT CHEST WALL DEBRIDED TISSUE Clinical History Left chest wound Final Diagnosis CHEST WALL, LEFT, DEBRIDED TISSUE, EXCISION: SKIN AND UNDERLYING SUBCUTANEOUS TISSUE WITH MARKED ACUTE AND CHRONIC INFLAMMATION, HEMORRHAGE, ULCERATION, AND REACTIVE CHANGES. Electronically Signed Rain Benitez M.D. Gross Description Received in formalin labeled "left chest wall debrided tissue" are 2 irregular fragments of rodríguez skin measuring 4.5 x 1 x 1 cm and 1.5 x 1 x 1 cm. The largest fragment shows focal area of hemorrhage in the subcutaneous tissue. The smaller fragment is partially effaced by skin. The smaller fragment is inked in blue and bisected. Pattern Molder sections are submitted in one cassette as follows: 1- sales representatives section, area of hemorrhage larger fragment and bisected smaller fragment. MLSZ/09/13/2020 sansilvia/09/13/2020
[2020-09-13] MEDS: ATORVASTATIN CA 10 MG TABLET (FP) PO SCH (22:02)
[2020-09-14] MEDS: HEPARIN NA (PORCINE) 5,000 UNITS/ML 1ML VIAL SQ SCH ×3 (05:27→21:24)
[2020-09-14 06:54] LABS: BASO % 0.7 % (0-2.0); EOS % 0.7 % (0-4.5); HEMATOCRIT 27.5 % (32.4-45.2); HEMOGLOBIN 9.1 GM/dL (10.7-15.3); LYMPH % 11.1 % (8-40); MCH 26.6 pg (25.7-33.7); MCHC 33.2 g/dl (32.0-36.0); MEAN CELL VOLUME 80.1 fl (80-96); MEAN PLT VOLUME 10.6 fl (7.5-11.1); MONO % 9.1 % (3.8-10.2); NEUT % 78.4 % (42.8-82.8); PLATELET COUNT 242 K/MM3 (134-434); RBC 3.43 M/mm3 (3.60-5.2); RDW 16.3 % (11.6-15.6); WHITE BLOOD COUNT 7.7 K/mm3 (4.0-10.0)
[2020-09-14 07:16] LABS: POTASSIUM 4.2 mmol/L (3.5-5.1)
[2020-09-14 07:17] LABS: CALCIUM 8.1 mg/dL (8.5-10.1)
[2020-09-14 07:18] LABS: BLOOD UREA NITROGEN 27.2 mg/dL (7-18); MAGNESIUM 1.4 mg/dL (1.8-2.4)
[2020-09-14 07:21] LABS: CREATININE 1.6 mg/dL (0.55-1.3)
[2020-09-14] MEDS ORDERED: MAGNESIUM SULFATE IN WATER 2 GM/50 ML IVPB IVPB ONE (08:10)
[2020-09-14] MEDS: FAMOTIDINE 10 MG TABLET PO SCH (10:58)
[2020-09-14] MEDS: DOXYCYCLINE HYCLATE 100 MG CAPSULE PO SCH ×2 (10:59→11:37)
[2020-09-14] MEDS: ASPIRIN 81 MG CHEWABLE TABLETS PO SCH (11:00)
[2020-09-14] MEDS: BACITRACIN 15 GM TUBE TOPICAL OINTMENT TP SCH ×2 (11:00→21:14)
[2020-09-14] MEDS: LACTOBACILLUS ACIDOPHILUS 1 TABLET PO SCH (11:00)
[2020-09-14] MEDS: SODIUM BICARBONATE 650 MG TABLET PO SCH (11:02)
[2020-09-14] MEDS: OSIMERTINIB 80 MG PO SCH ×3 (11:02→18:05)
--- NOTE | 2020-09-14 11:59 | PN ---
Progress Note, Physician History of Present Illness: c/o of vomiting feeling after she takes doxy other hernandez stable wound vac draining - Current Medication List Current Medications: Active Medications Acetaminophen (Tylenol -) 500 mg PO Q6H PRN PRN Reason: PAIN LEVEL 1-5 Last Admin: 09/12/20 21:28 Dose: 500 mg Documented by: Aspirin (Asa -) 81 mg PO DAILY [facility] Last Admin: 09/14/20 11:00 Dose: 81 mg Documented by: Atorvastatin Calcium (Lipitor -) 10 mg PO HS [facility] Last Admin: 09/13/20 22:02 Dose: 10 mg Documented by: Bacitracin (Bacitracin -) 1 applic TP BID [facility] Last Admin: 09/14/20 11:00 Dose: 1 applic Documented by: Doxycycline Hyclate (Vibramycin -) 100 mg PO BID@1000,1800 [facility] Last Admin: 09/14/20 11:37 Dose: Not Given Documented by: Famotidine (Acid Seat Cover Maker) 10 mg PO DAILY [facility] Last Admin: 09/14/20 10:58 Dose: 10 mg Documented by: Fentanyl (Sublimaze Injection -) 25 mcg IVPUSH [id number] PRN PRN Reason: PAIN-PACU ORDER X 4 DOSES ONLY Heparin Sodium (Porcine) (Heparin -) 5,000 unit SQ TID [facility] Last Admin: 09/14/20 05:27 Dose: 5,000 unit Documented by: Lactobacillus Acidophilus (Bacid -) 1 tab PO DAILY [facility] Last Admin: 09/14/20 11:00 Dose: 1 tab Documented by: Metoprolol Succinate (Toprol Xl -) 50 mg PO DAILY [facility] Last Admin: 09/14/20 10:59 Dose: 50 mg Documented by: Nf- Osimertinib 80mg (Tablets) 1 each PO DAILY [facility] Last Admin: 09/14/20 11:38 Dose: Not Given Documented by: Ondansetron HCl (Zofran Odt -) 4 mg SL Q8H PRN PRN Reason: NAUSEA Oxycodone HCl (Roxicodone -) 5 mg PO Q4H PRN PRN Reason: PAIN LEVEL 6-10 Sodium Bicarbonate (Sodium Bicarbonate -) 650 mg PO DAILY [facility] Last Admin: 09/14/20 11:02 Dose: 650 mg Documented by: - Objective Vital Signs: Vital Signs Temperature 98 F 09/14/20 11:44 Pulse Rate 91 H 09/14/20 11:44 Respiratory Rate 18 09/14/20 11:44 Blood Pressure 128/71 09/14/20 11:44 O2 Sat by Pulse Oximetry (%) 98 09/14/20 11:44 Constitutional: Yes: No Distress, Calm Cardiovascular: Yes: S1, S2 Respiratory: Yes: Regular, Poor Air Entry Gastrointestinal: Yes: Normal Bowel Sounds, Soft Musculoskeletal: Yes: WNL Extremities: Yes: WNL Wound/Incision: Yes: Other (wound vac in place) Neurological: Yes: Alert, Oriented Psychiatric: Yes: Alert, Oriented Labs: CBC, BMP 09/14/20 05:42 09/14/20 05:42 Assessment/Plan Problem List - Problems (1) Lung cancer Code(s): C34.90 - MALIGNANT NEOPLASM OF UNSP PART OF UNSP BRONCHUS OR LUNG Qualifiers: Laterality: unspecified laterality Lung location: unspecified part of lung Qualified Code(s): C34.90 - Malignant neoplasm of unspecified part of unspecified bronchus or lung (2) Malignant pleural effusion Code(s): J91.0 - MALIGNANT PLEURAL EFFUSION (4) Trapped lung Code(s): J98.19 - OTHER PULMONARY COLLAPSE (5) Soft tissue infection Code(s): L08.9 - LOCAL INFECTION OF THE SKIN AND SUBCUTANEOUS TISSUE, UNSP Assessment/Plan Wound infection/ cellulitis Recent Empyema s/p chest tube YOUSUF Lung CA with mets Trapped Lung plan will change doxy to oral clinda to be continued for at least 2 weeks patient in 2 weeks needs repeat imaging she also need drainage of her collection in the lung as she can get trapped lung thoracic surgery needs to follow
[2020-09-14] MEDS ORDERED: CLINDAMYCIN HCL 150 MG CAPSULE (FP) PO SCH (12:00)
--- NOTE | 2020-09-14 13:06 | PN ---
Progress Note (short form) - Note Progress Note: PULMONARY VAC in place. No acute events overnight. VSS/AFEBRILE/PALE Constitutional: Yes: Calm Eyes: Yes: EOM Intact HENT: Yes: Normocephalic Neck: Yes: Trachea Midline Cardiovascular: Yes: Regular Rate and Rhythm Respiratory: Yes: Diminished/Dullness at the left base Gastrointestinal: Yes: Normal Bowel Sounds Edema: No Labs: NOTED Chest X-ray: Report Reviewed, Image Reviewed Problem List - Problems (1) Lung cancer Code(s): C34.90 - MALIGNANT NEOPLASM OF UNSP PART OF UNSP BRONCHUS OR LUNG Qualifiers: Laterality: unspecified laterality Lung location: unspecified part of lung Qualified Code(s): C34.90 - Malignant neoplasm of unspecified part of unspecified bronchus or lung (2) Malignant pleural effusion Code(s): J91.0 - MALIGNANT PLEURAL EFFUSION (3) Trapped lung Code(s): J98.19 - OTHER PULMONARY COLLAPSE (4) Anxiety Code(s): F41.9 - ANXIETY DISORDER, UNSPECIFIED (5) Soft tissue infection Code(s): L08.9 - LOCAL INFECTION OF THE SKIN AND SUBCUTANEOUS TISSUE, UNSP S/P Left VAC Left Empyema Left Sub-pulmonic collection Lung cancer VAC dressing Supplemental O2 as needed Pro-biotic VTE prophylaxis ABX prognosis is poor overall Roberto MACE MD Problem List - Problems (1) Lung cancer Code(s): C34.90 - MALIGNANT NEOPLASM OF UNSP PART OF UNSP BRONCHUS OR LUNG Qualifiers: Laterality: unspecified laterality Lung location: unspecified part of lung Qualified Code(s): C34.90 - Malignant neoplasm of unspecified part of unspecified bronchus or lung (2) Malignant pleural effusion Code(s): J91.0 - MALIGNANT PLEURAL EFFUSION (3) Trapped lung Code(s): J98.19 - OTHER PULMONARY COLLAPSE (4) Anxiety Code(s): F41.9 - ANXIETY DISORDER, UNSPECIFIED (5) Soft tissue infection Code(s): L08.9 - LOCAL INFECTION OF THE SKIN AND SUBCUTANEOUS TISSUE, UNSP
[2020-09-14] MEDS ORDERED: MAGNESIUM OXIDE 400 MG TABLET (FP) PO ONE (13:40)
--- NOTE | 2020-09-14 14:10 | PN ---
Teaching Attending Note Name of Resident: Ashley Manjarrez ATTENDING PHYSICIAN STATEMENT I saw and evaluated the patient. I reviewed the resident's note and discussed the case with the resident. I agree with the resident's findings and plan as documented. SUBJECTIVE: declines answerign questions and stresses on how upset she is OBJECTIVE: Tearful durian interview. CV: RRR, 3/6 SM at LUSB Lungs: CTAB Ext: No edema or erythema on LEs Skin: L posterior chest wall with a wound vac, skin around it clean and not erythematous . Abd: soft, NT, ND, nl BS Assessment/Plan: Unfortunate 59 y/o lady with h/o L lung ca, s/p CT removal 08/15/20 , HTN, HLP, L malignant pleural effusion, recent admission to [facility] for an infected chest wall . she presented this time with YOUSUF and was found to have L sided chest wall infection /abscess 1- YOUSUF : improved 2- L chest wall infection with collection 3- malignant L pleural effusion 4- H/o HTN Plan: - cont wound vac. - case was dw Dr. Barba. clinda x 2 weeks - f/u with thoracic after dc - repeat CT of chest in 2 weeks - cont BB dispo : pending SNF placement -
--- NOTE | 2020-09-14 14:20 | DS ---
Physical Exam: SUBJECTIVE: Patient seen and examined OBJECTIVE: Vital Signs Period Temp Pulse Resp BP Sys/Gonzalez Pulse Ox Last 24 Hr 97.6 F-98.9 F 84-91 18-18 123-132/64-81 92-98 PHYSICAL EXAM GENERAL: Tearful. In mild distress. HEENT: NCAT, EOMI, moist mucus membranes LUNGS: CTA b/l, no wheezes. HEART: Regular rate and rhythm. S1, S2 present. CHEST: Wound vac in place draining minimal serosanguinous fluid. ABDOMEN: Soft, nontender, nondistended, normoactive bowel sounds EXTREMITIES: 2+ pulses, warm, well-perfused, no edema. SKIN: Warm. Wound vac on L side back is clean and without surrounding erythema. LABS Laboratory Results - last 24 hr 09/11/20 09/14/20 09/14/20 10:02 02:40 05:42 WBC 7.7 RBC 3.43 L Hgb 9.1 L Hct 27.5 L MCV 80.1 MCH 26.6 MCHC 33.2 RDW 16.3 H Plt Count 242 MPV 10.6 Absolute Neuts (auto) 6.0 Neutrophils % 78.4 Lymphocytes % 11.1 Monocytes % 9.1 Eosinophils % 0.7 Basophils % 0.7 Nucleated RBC % 0 Sodium Potassium Chloride Carbon Dioxide Anion Gap BUN Creatinine Est GFR (CKD-EPI)AfAm Est GFR (CKD-EPI)NonAf Random Glucose Calcium Magnesium SARS-CoV-2 (PCR) Negative Blood Type A POSITIVE Antibody Screen Negative Crossmatch See Detail 09/14/20 05:42 WBC RBC Hgb Hct MCV MCH MCHC RDW Plt Count MPV Absolute Neuts (auto) Neutrophils % Lymphocytes % Monocytes % Eosinophils % Basophils % Nucleated RBC % Sodium 141 Potassium 4.2 Chloride 105 Carbon Dioxide 27 Anion Gap 9 BUN 27.2 H Creatinine 1.6 H Est GFR (CKD-EPI)AfAm 40.17 Est GFR (CKD-EPI)NonAf 34.66 Random Glucose 74 Calcium 8.1 L Magnesium 1.4 L SARS-CoV-2 (PCR) Blood Type Antibody Screen Crossmatch HOSPITAL COURSE: 59 yo F w/ PMHx of NSCLC w/ EGFR mutation on Tagrisso recently admitted for persistent loculated pleural effusion following pleurex tube removal w/ dc on Clindamycin and Augmentin (ptn reports stopping medication on 09/04) presents from clinic 2/2 creatinine of 2.6 (baseline 0.9) which did not resolve with outpatient IV hydration. Admitted for YOUSUF and likely empyema. Pt given IV hydration, which improved her YOUSUF. Regarding empyema, pt had I&D done with wound vac in place. Currently draining minimal serosanguinous fluids. Wound vac care will be done by rehab facility when discharged. Pt was evaluated by thoracic surgery, who recommended to f/u with CT chest to monitor effusion. Pt was not tolerating doxycycline, and thus was placed on clindamycin on discharge. Pt will receive this for 2 weeks. Due to pt's parents being with advanced age, pt will have further care at a SNF. Pt is medically optimized for discharge. Date of Admission:09/05/20 Date of Discharge: 09/14/20 Minutes to complete discharge: 36 Discharge Summary Reason For Visit: DEHYDRATION Condition: Improved - Instructions Diet, Activity, Other Instructions: YOUR VISIT You came to the hospital because you were experiencing decreased kidney function, diarrhea, and drainage from you back. You were admitted to the hospital for a condition called "Acute Kidney Injury" and abscess formation in left sided chest wall Additional image findings You were found to have a few non-obstructing kidney stones in your both of your kidneys. You also have a 1.2 x 0.8 cm cyst found on your left kidney that will need to be monitored by your primary doctor or nephrology . MEDICATION CHANGES -Please continue to take Clindamycin 300mg by mouth every 6 hours for the next 2 weeks. Your next dose is tonight. -Please continue to take Osirmetinib 80mg by mouth daily. -Do NOT take your omeprazole. You may take Famotidine 10mg by mouth daily for your acid. -Pleasure continue to take Sodium bicarbonate 650mg by mouth daily. -Please continue to take ondansetron 4mg under your tongue every 8 hours as needed for your nasuea -Please continue to take your home medications as prescribed. ADDITIONAL CARE Please make an appointment to see a primary care provider 2 weeks from today. Since you do not have one, you can call to schedule an appointment at the [facility]' clinic, located at [address] [place] [address]. If you would like to continue seeing Dr. Wilfredo Roa, please ask for a Lyndsey morning appointment. Please make an appointment to see your cookie breaker/oncologist, Dr. Guallpa in 2 week. Please make an appointment to see your thoracic surgeon, Dr. Rubi, in 1 week. Please make an appointment to see your relief map modeler Dr. Damon in 1 week. Please make an appointment to see your manager software Dr. Vazquez in 2week. you need CT scan of the chest in 2 weeks. you pulmonary or dr. Rubi can order that ADDITIONAL INFORMATION -You are being discharged to a rehabilitation center. -Please call 911 or come directly to the emergency department if you experience recurrence of the symptoms that brought you to the hospital, unusual headache, vision change, shortness of breath, chest pain, numbness, tingling, loss of alertness/awareness, loss of function, unusual bleeding or any alarming symptoms. -Wound Vac care instructions. As per surgery, your wound vac will be address every Wednesday, Wednesday and Wednesday. Your facility will address its care. keep site dry . Dr. Pedraza Discharge Instructions Dear LATOYA BO, Post Operative Instructions Physical activity Resume your normal everyday activity as tolerated no heavy lifting or exercise until seen by your surgeon. You may walk unlimited amounts of and climb stairs. You may resume driving the car when you feel safe and comfortable behind the wheel. Diet There are no dietary restrictions. Eat healthy, high-fiber foods. Drink 6 to 8 glasses of liquid each day. This will assist in keeping your bowels are regular. Call Dr. Pedraza for any of the following: Severe pain not relieved by medication Fever of 101 or higher Excessive bleeding or drainage on dressing Inability to urinate Call the office at [phone] for a post operative appointment in 7 - 10 days. Referrals: Lalit Nur MD [Staff Physician] - 2 Weeks Greg Lal MD [Staff Physician] - 1 Week Selin Guallpa MD [Staff Physician] - 1 Week Jesse Rubi MD [Staff Physician] - 1 Week Cameron Damon MD [Staff Physician] - 1 Week Darryl Vazquez MD [Staff Physician] - 1 Week Disposition: INTERMEDIATE FACILITY - Home Medications Comprehensive Discharge Medication List: Ambulatory Orders Atorvastatin Ca [Lipitor] 10 mg PO HS tablet 04/09/14 Cholecalciferol (Vitamin D3) [Vitamin D3 -] 2,000 units PO DAILY 06/14/17 Aspirin 81 mg PO DAILY 02/21/18 Metoprolol Succinate 50 mg PO DAILY 06/10/20 Acetaminophen [Tylenol] 500 mg PO QID PRN 08/17/20 Ascorbate Calcium [Vitamin C] 500 mg PO BID 08/17/20 Omeprazole 20 mg PO DAILY 08/17/20 Prochlorperazine Maleate [Compazine] 10 mg PO 09/06/20 Bacitracin - [Bacitracin Topical Ointment -] 1 applic TP BID #1 tube 09/14/20 Clindamycin [Cleocin -] 300 mg PO Q6HPO #112 capsule 09/14/20 Famotidine [Acid Abap Developer] 10 mg PO DAILY #30 tablet 09/14/20 Ondansetron [Zofran *Odt*] 4 mg SL Q8H PRN tab.rapdis 09/14/20 Patient's Own Medication [Patient's Own Med (Nf) -] 1 each PO DAILY med 09/14/20 Sodium Bicarbonate - 650 mg PO DAILY #30 tablet 09/14/20 This patient is new to me today: No Emergency Visit: Yes ED Registration Date: 09/05/20 Care time: The patient presented to the Emergency Department on the above date and was hospitalized for further evaluation of their emergent condition. Critical Care patient: No - Discharge Referral Referred to [facility] Med P.C.: No ATTENDING PHYSICIAN STATEMENT I saw and evaluated the patient. I reviewed the resident's note and discussed the case with the resident. I agree with the resident's findings and plan as documented. SUBJECTIVE: OBJECTIVE: ASSESSMENT AND PLAN:
[2020-09-14] MEDS ORDERED: SODIUM CHLORIDE 1,000 ML IV SCH (15:30)
[2020-09-14] MEDS ORDERED: oxyCODONE HCL 5 MG TABLET PO PRN (16:14)
[2020-09-14] MEDS ORDERED: MAGNESIUM SULF 50% (8.12 MEQ/2 ML-1 GM VIAL) IVPB ONE (16:17)
[2020-09-14] MEDS: PANTOPRAZOLE SODIUM 40 MG VIAL IVPB SCH (16:26)
--- NOTE | 2020-09-14 17:09 | PN ---
Physical Exam: SUBJECTIVE: Patient seen and examined. No acute events overnight. Pt was tearful on my encounter and expressed frustration with prolonged hospital stay. Denied fevers, chills, SOB, c/p, abdominal pain, n/v/d. OBJECTIVE: Vital Signs Period Temp Pulse Resp BP Sys/Gonzalez Pulse Ox Last 24 Hr 97.6 F-98.9 F 84-91 18-18 123-128/64-71 92-98 GENERAL: Tearful, awake, alert. In mild distress. HEENT: NCAT, EOMI, PERRL, moist mucus membranes. LUNGS: CTA b/l. No wheezes HEART: RRR, S1 and S2 present. ABDOMEN: Soft, nontender, nondistended, normoactive bowel sounds EXTREMITIES: Warm, well-perfused, no edema SKIN: Warm, dry. Wound vac visualized on posterior chest wall. No surrounding erythema. Draining scant serosanguinous fluid. Laboratory Last Values WBC 7.7 K/mm3 (4.0-10.0) 09/14/20 05:42 RBC 3.43 M/mm3 (3.60-5.2) L 09/14/20 05:42 Hgb 9.1 GM/dL (10.7-15.3) L 09/14/20 05:42 Hct 27.5 % (32.4-45.2) L 09/14/20 05:42 MCV 80.1 fl (80-96) 09/14/20 05:42 MCH 26.6 pg (25.7-33.7) 09/14/20 05:42 MCHC 33.2 g/dl (32.0-36.0) 09/14/20 05:42 RDW 16.3 % (11.6-15.6) H 09/14/20 05:42 Plt Count 242 K/MM3 (134-434) 09/14/20 05:42 MPV 10.6 fl (7.5-11.1) 09/14/20 05:42 Absolute Neuts (auto) 6.0 K/mm3 (1.5-8.0) 09/14/20 05:42 Neutrophils % 78.4 % (42.8-82.8) 09/14/20 05:42 Lymphocytes % 11.1 % (8-40) 09/14/20 05:42 Monocytes % 9.1 % (3.8-10.2) 09/14/20 05:42 Eosinophils % 0.7 % (0-4.5) 09/14/20 05:42 Basophils % 0.7 % (0-2.0) 09/14/20 05:42 Nucleated RBC % 0 % (0-0) 09/14/20 05:42 Haptoglobin 550 mg/dL (33-346) H 09/05/20 14:22 Sodium 141 mmol/L (136-145) 09/14/20 05:42 Potassium 4.2 mmol/L (3.5-5.1) 09/14/20 05:42 Chloride 105 mmol/L (98-107) 09/14/20 05:42 Carbon Dioxide 27 mmol/L (21-32) 09/14/20 05:42 Anion Gap 9 MMOL/L (8-16) 09/14/20 05:42 BUN 27.2 mg/dL (7-18) H 09/14/20 05:42 Creatinine 1.6 mg/dL (0.55-1.3) H 09/14/20 05:42 Est GFR (CKD-EPI)AfAm 40.17 09/14/20 05:42 Est GFR (CKD-EPI)NonAf 34.66 09/14/20 05:42 Random Glucose 74 mg/dL (74-106) 09/14/20 05:42 Calcium 8.1 mg/dL (8.5-10.1) L 09/14/20 05:42 Phosphorus 3.3 mg/dL (2.5-4.9) 09/12/20 08:59 Magnesium 1.4 mg/dL (1.8-2.4) L 09/14/20 05:42 Total Bilirubin 0.3 mg/dL (0.2-1) 09/08/20 07:15 AST 12 U/L (15-37) L 09/08/20 07:15 ALT 8 U/L (13-61) L 09/08/20 07:15 Alkaline Phosphatase 80 U/L (45-117) 09/08/20 07:15 LD Total 233 U/L (84-246) 09/05/20 14:22 Creatine Kinase 115 U/L (26-192) 09/05/20 14:22 Total Protein 5.1 g/dl (6.4-8.2) L 09/08/20 07:15 Albumin 1.9 g/dl (3.4-5.0) L 09/08/20 07:15 Urine Color Yellow 09/05/20 19:15 Urine Appearance Cloudy 09/05/20 19:15 Urine pH 5.0 (5.0-8.0) 09/05/20 19:15 Ur Specific Barnard 1.013 (1.010-1.035) 09/05/20 19:15 Urine Protein Trace (NEGATIVE) 09/05/20 19:15 Urine Glucose (UA) Negative (NEGATIVE) 09/05/20 19:15 Urine Ketones Negative (NEGATIVE) 09/05/20 19: Urine Blood Trace (NEGATIVE) 09/05/20 19:15 Urine Nitrite Negative (NEGATIVE) 09/05/20 19:15 Urine Bilirubin Negative (NEGATIVE) 09/05/20 19:15 Urine Urobilinogen 0.2 mg/dL (0.2-1.0) 09/05/20 19:15 Ur Leukocyte Esterase Negative (NEGATIVE) 09/05/20 19:15 Urine WBC (Auto) 24 /uL (0-25.8) 09/05/20 19:15 Urine Casts (Auto) 3 /uL (0-3.1) 09/05/20 19:15 U Epithel Cells (Auto) 15 /uL (0-25.1) 09/05/20 19:15 Urine Bacteria (Auto) 6 /uL (0-1359) 09/05/20 19:15 Urine Eosinophils None seen % (.) 09/05/20 19:15 Ur Random Creatinine 77.0 mg/dL (30-150) 09/05/20 19:15 U Random Total Protein 84.3 mg/dL (0-11.9) H 09/05/20 19:15 Ur Random Sodium 99 MMOL/L (40-220) 09/05/20 19:15 Ur Random Urea Nitrogn 485 mg/dL (350-1000) 09/05/20 19:15 Random Vancomycin 13.2 ug/ml (5-26) 09/09/20 06:30 KLAUDIA Screen Negative (.) 09/05/20 14:22 c-ANCA <1:20 titer (Neg:<1:20) 09/05/20 14:22 Proteinase 3 (PR3) <3.5 U/mL (0.0-3.5) 09/05/20 14:22 p-ANCA <1:20 titer (Neg:<1:20) 09/05/20 14:22 Atypical p-ANCA <1:20 titer (Neg:<1:20) 09/05/20 14:22 Myeloperoxidase Ab <9.0 U/mL (0.0-9.0) 09/05/20 14:22 Tot Complement (CH50) > 60 U/mL (>41) 09/05/20 14:22 Syphilis Serology Reactive (NONREACTIVE) A* 09/05/20 20:49 RPR Titer Reactive 1:1 (NONREACTIVE) H 09/05/20 20:49 COVID-19 (ANGELIQUE) Not detected (Not Detected) 09/06/20 11:30 Hep A IgM Ab Confirm Negative (Negative) 09/05/20 20:49 Hep Bs Antigen Negative (Negative) 09/05/20 20:49 Hep B Core IgM Ab Negative (Negative) 09/05/20 20:49 Hepatitis C Ab (EIA) <0.1 s/co ratio (0.0-0.9) 09/05/20 20:49 SARS-CoV-2 (PCR) Negative (Negative) 09/14/20 02:40 Blood Type A POSITIVE 09/11/20 10:02 Antibody Screen Negative 09/11/20 10:02 Crossmatch See Detail 09/11/20 10:02 Active Medications Acetaminophen (Tylenol -) 500 mg PO Q6H PRN PRN Reason: PAIN LEVEL 1-5 Last Admin: 09/12/20 21:28 Dose: 500 mg Documented by: Aspirin (Asa -) 81 mg PO DAILY [facility] Last Admin: 09/14/20 11:00 Dose: 81 mg Documented by: Atorvastatin Calcium (Lipitor -) 10 mg PO HS [facility] Last Admin: 09/13/20 22:02 Dose: 10 mg Documented by: Bacitracin (Bacitracin -) 1 applic TP BID [facility] Last Admin: 09/14/20 11:00 Dose: 1 applic Documented by: Fentanyl (Sublimaze Injection -) 25 mcg IVPUSH [id number] PRN PRN Reason: PAIN-PACU ORDER X 4 DOSES ONLY Heparin Sodium (Porcine) (Heparin -) 5,000 unit SQ BID [facility] Clindamycin Phosphate (Cleocin 300 Mg Premix Ivpb) 300 mg in 50 mls @ 100 mls/hr IVPB Q8H-IV [facility]; Protocol Last Admin: 09/14/20 18:04 Dose: 100 mls/hr Documented by: Amino Acids (Clinimix -) 1,000 mls @ 42 mls/hr IV Q24H [facility] Lactobacillus Acidophilus (Bacid -) 1 tab PO DAILY [facility] Last Admin: 09/14/20 11:00 Dose: 1 tab Documented by: Metoprolol Succinate (Toprol Xl -) 50 mg PO DAILY [facility] Last Admin: 09/14/20 10:59 Dose: 50 mg Documented by: Nf- Osimertinib 80mg (Tablets) 1 each PO DAILY [facility] Last Admin: 09/14/20 18:05 Dose: 1 each Documented by: Ondansetron HCl (Zofran Odt -) 4 mg SL Q8H PRN PRN Reason: NAUSEA Oxycodone HCl (Roxicodone -) 5 mg PO Q6H PRN PRN Reason: PAIN LEVEL 6-10 Pantoprazole Sodium (Protonix Iv) 40 mg IVPB DAILY [facility] Last Admin: 09/14/20 16:26 Dose: 40 mg Documented by: Sodium Bicarbonate (Sodium Bicarbonate -) 650 mg PO DAILY [facility] Last Admin: 09/14/20 11:02 Dose: 650 mg Documented by: ASSESSMENT/PLAN: 59 yo F w/ PMH of NSCLC w/ EGFR mutation with recent admission for persistent loculated pleural effusion following chest tube removal (discharged with Clindamycin and augmentin) presented to the ED due to elevated creatinine. Pt admitted for YOUSUF and likely empyema. Pre-renal YOUSUF possibly secondary to antibiotic use, improved -Cr improved -Pt to f/u outpatient nephrology. R/o Recurrent empyema of L pleural space in pt with history of malignant effusion -S/p I&D with wound vac placement -Continue wound vac care M,W,F -Did not tolerate Doxycycline (nausea). Switched to Clindamycin 300mg IVPB -Discussed case with Dr. Barba, pt to receive a total of 2 weeks of clindamy geeta -Will need repeat CT 2 weeks to follow effusion as per thoracic surgery -Wound cx negative -Oxycodone 5mg Q6H PRN, fentanyl 25mcg IVP PRN for pain -c/w acetaminophen 500mg q6H for pain/fever -c/w bacitracin on affected area -ID, thoracic surgery, general surgery consulted. Loose bowel movements, improved -c/w probiotics 1 tab qD -c/w sodium bicarb 650mg qD Anemia of chronic disease vs. Bone marrow suppression -c/w Osimertinib 80mg qD -Monitor H/H. Transfuse if Hb <7. -FOBT Negative -Heme/onc consulted. HTN, chronic -c/w metoprolol succinate 50mg qD HLD, chronic -c/w Lipitor 10mg qD, ASA 81mg GERD, chronic -c/w Famotidine 10mg qD and protonix IVPB 40mg qD FEN -No standing fluids -monitor and replete lytes as needed -Regular diet, clinimix @ 42 PPx -DVT: SQH -GI: Famotidine 10 qD, protonix 40 IVPB Dispo: Pt optimized for discharge. Pt rejected from [facility]. Pending approval to [facility]. As per public affairs manager, [facility] was not responding to requests for pt's admission. Visit type - Emergency Visit Emergency Visit: Yes ED Registration Date: 09/05/20 Care time: The patient presented to the Emergency Department on the above date and was hospitalized for further evaluation of their emergent condition. - New Patient This patient is new to me today: No - Critical Care Critical Care patient: No ATTENDING PHYSICIAN STATEMENT I saw and evaluated the patient. I reviewed the resident's note and discussed the case with the resident. I agree with the resident's findings and plan as documented. SUBJECTIVE: OBJECTIVE: ASSESSMENT AND PLAN:
[2020-09-14] MEDS: CLINDAMYCIN 300 MG PREMIX IVPB 300 MG/50 ML BAG IVPB SCH (18:04)
[2020-09-14] MEDS: AMINO ACIDS 4.25%/D5W 1,000 ML IV SCH (21:22)
[2020-09-14] MEDS: ONDANSETRON *ODT* 4 MG TABLET SL PRN (21:23)
[2020-09-14] MEDS: ATORVASTATIN CA 10 MG TABLET (FP) PO SCH (21:23)
--- NOTE | 2020-09-14 21:51 | PN.HO ---
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 chest wall fistula -- s/p wound vac Discussed with ID team --- recommending 7-10 days of clindamycin Will discuss with CT surgery team will add clinimix
[2020-09-15] MEDS: CLINDAMYCIN 300 MG PREMIX IVPB 300 MG/50 ML BAG IVPB SCH ×3 (01:24→17:21)
[2020-09-15 07:18] LABS: POTASSIUM 3.7 mmol/L (3.5-5.1)
[2020-09-15 07:21] LABS: MAGNESIUM 1.9 mg/dL (1.8-2.4)
[2020-09-15 07:24] LABS: CREATININE 1.6 mg/dL (0.55-1.3); PHOSPHOROUS 3.1 mg/dL (2.5-4.9)
[2020-09-15 07:29] LABS: HEMATOCRIT 28.3 % (32.4-45.2); HEMOGLOBIN 9.4 GM/dL (10.7-15.3); MCH 26.5 pg (25.7-33.7); MCHC 33.2 g/dl (32.0-36.0); PLATELET COUNT 255 K/MM3 (134-434); RBC 3.54 M/mm3 (3.60-5.2); RDW 16.8 % (11.6-15.6); WHITE BLOOD COUNT 9.5 K/mm3 (4.0-10.0)
--- NOTE | 2020-09-15 10:24 | PN ---
Progress Note, Physician History of Present Illness: stable no new issues - Current Medication List Current Medications: Active Medications Acetaminophen (Tylenol -) 500 mg PO Q6H PRN PRN Reason: PAIN LEVEL 1-5 Last Admin: 09/12/20 21:28 Dose: 500 mg Documented by: Aspirin (Asa -) 81 mg PO DAILY [facility] Last Admin: 09/14/20 11:00 Dose: 81 mg Documented by: Atorvastatin Calcium (Lipitor -) 10 mg PO HS [facility] Last Admin: 09/14/20 21:23 Dose: 10 mg Documented by: Bacitracin (Bacitracin -) 1 applic TP BID [facility] Last Admin: 09/14/20 21:14 Dose: Not Given Documented by: Fentanyl (Sublimaze Injection -) 25 mcg IVPUSH [id number] PRN PRN Reason: PAIN-PACU ORDER X 4 DOSES ONLY Heparin Sodium (Porcine) (Heparin -) 5,000 unit SQ BID [facility] Last Admin: 09/14/20 21:24 Dose: 5,000 unit Documented by: Clindamycin Phosphate (Cleocin 300 Mg Premix Ivpb) 300 mg in 50 mls @ 100 mls/hr IVPB Q8H-IV [facility]; Protocol Last Admin: 09/15/20 01:24 Dose: 100 mls/hr Documented by: Amino Acids (Clinimix -) 1,000 mls @ 42 mls/hr IV Q24H [facility] Last Admin: 09/14/20 21:22 Dose: 42 mls/hr Documented by: Lactobacillus Acidophilus (Bacid -) 1 tab PO DAILY [facility] Last Admin: 09/14/20 11:00 Dose: 1 tab Documented by: Metoprolol Succinate (Toprol Xl -) 50 mg PO DAILY [facility] Last Admin: 09/14/20 10:59 Dose: 50 mg Documented by: Nf- Osimertinib 80mg (Tablets) 1 each PO DAILY [facility] Last Admin: 09/14/20 18:05 Dose: 1 each Documented by: Ondansetron HCl (Zofran Odt -) 4 mg SL Q8H PRN PRN Reason: NAUSEA Last Admin: 09/14/20 21:23 Dose: 4 mg Documented by: Oxycodone HCl (Roxicodone -) 5 mg PO Q6H PRN PRN Reason: PAIN LEVEL 6-10 Pantoprazole Sodium (Protonix Iv) 40 mg IVPB DAILY [facility] Last Admin: 09/14/20 16:26 Dose: 40 mg Documented by: Sodium Bicarbonate (Sodium Bicarbonate -) 650 mg PO DAILY [facility] Last Admin: 09/14/20 11:02 Dose: 650 mg Documented by: - Objective Vital Signs: Vital Signs Temperature 98.7 F 09/15/20 06:00 Pulse Rate 88 09/15/20 06:00 Respiratory Rate 18 09/15/20 06:00 Blood Pressure 114/62 09/15/20 06:00 O2 Sat by Pulse Oximetry (%) 93 L 09/15/20 06:00 Constitutional: Yes: No Distress, Calm Cardiovascular: Yes: S1, S2 Respiratory: Yes: Regular, Poor Air Entry Gastrointestinal: Yes: Normal Bowel Sounds, Soft Musculoskeletal: Yes: WNL Extremities: Yes: WNL Neurological: Yes: Alert, Oriented Psychiatric: Yes: Alert, Oriented Labs: CBC, BMP 09/15/20 06:37 09/15/20 06:37 Assessment/Plan Problem List - Problems (1) Lung cancer Code(s): C34.90 - MALIGNANT NEOPLASM OF UNSP PART OF UNSP BRONCHUS OR LUNG Qualifiers: Laterality: unspecified laterality Lung location: unspecified part of lung Qualified Code(s): C34.90 - Malignant neoplasm of unspecified part of unspecified bronchus or lung (2) Malignant pleural effusion Code(s): J91.0 - MALIGNANT PLEURAL EFFUSION (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
[2020-09-15] MEDS ORDERED: PT OWN MED DRAWER 7, Y5N ONE ×2 (11:19→17:18)
[2020-09-15] MEDS: ASPIRIN 81 MG CHEWABLE TABLETS PO SCH (11:27)
[2020-09-15] MEDS: SODIUM BICARBONATE 650 MG TABLET PO SCH (11:27)
[2020-09-15] MEDS: PANTOPRAZOLE SODIUM 40 MG VIAL IVPB SCH (11:27)
[2020-09-15] MEDS: LACTOBACILLUS ACIDOPHILUS 1 TABLET PO SCH (11:27)
[2020-09-15] MEDS: BACITRACIN 15 GM TUBE TOPICAL OINTMENT TP SCH ×2 (11:28→21:11)
[2020-09-15] MEDS: HEPARIN NA (PORCINE) 5,000 UNITS/ML 1ML VIAL SQ SCH ×2 (11:28→21:11)
--- NOTE | 2020-09-15 13:19 | PN.HO ---
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 chest wall fistula -- s/p wound vac Discussed with ID team --- recommending 7-10 days of clindamycin Will discuss with CT surgery team on clinimix will discuss with case management team
--- NOTE | 2020-09-15 13:20 | PN ---
Progress Note (short form) - Note Progress Note: Subjective: Feels better today. no pain. No N/V. BM yesterday Objective: Vital Signs: Last Vital Signs Temp Pulse Resp BP Pulse Ox 98.7 F 88 18 114/62 93 L 09/15/20 06:00 09/15/20 06:00 09/15/20 06:00 09/15/20 06:00 09/15/20 06:00 Laboratory Results - last 24 hr 09/15/20 09/15/20 06:37 06:37 WBC 9.5 RBC 3.54 L Hgb 9.4 L Hct 28.3 L MCV 80.0 MCH 26.5 MCHC 33.2 RDW 16.8 H Plt Count 255 MPV 11.0 Sodium 139 Potassium 3.7 Chloride 104 Carbon Dioxide 27 Anion Gap 8 BUN 32.0 H Creatinine 1.6 H Est GFR (CKD-EPI)AfAm 40.17 Est GFR (CKD-EPI)NonAf 34.66 Random Glucose 116 H Calcium 8.0 L Phosphorus 3.1 Magnesium 1.9 Physical Exam: NAD CV: RRR, 3/6 SM at LUSB Lungs: CTAB Ext: No edema or erythema on LEs Skin: L posterior chest wall with a wound vac, skin around it clean and not erythematous . Abd: soft, NT, ND, nl BS Assessment/Plan: Unfortunate 59 y/o lady with h/o L lung ca, s/p CT removal 08/15/20 , HTN, HLP, L malignant pleural effusion, recent admission to [facility] for an infected chest wall . she presented this time with YOUSUF and was found to have L sided chest wall infection /abscess 1- YOUSUF : improved 2- L chest wall infection with collection 3- malignant L pleural effusion 4- H/o HTN Plan: - cont wound vac. - Cont clinda - f/u with thoracic after dc - repeat CT of chest in 2 weeks - cont BB - cont osimertinib - No labs tomorrow dispo: pending SNF placement, hopefully tomorrow - Visit type - Emergency Visit Emergency Visit: Yes ED Registration Date: 09/05/20 Care time: The patient presented to the Emergency Department on the above date and was hospitalized for further evaluation of their emergent condition. - New Patient This patient is new to me today: No - Critical Care Critical Care patient: No
[2020-09-15] MEDS: OSIMERTINIB 80 MG PO SCH (17:22)
[2020-09-15] MEDS: AMINO ACIDS 4.25%/D5W 1,000 ML IV SCH (20:44)
[2020-09-15] MEDS: ATORVASTATIN CA 10 MG TABLET (FP) PO SCH (21:11)
[2020-09-15] MEDS: ONDANSETRON *ODT* 4 MG TABLET SL PRN (21:11)
[2020-09-16] MEDS: CLINDAMYCIN 300 MG PREMIX IVPB 300 MG/50 ML BAG IVPB SCH ×2 (01:19→10:10)
--- NOTE | 2020-09-16 08:23 | OP ---
DATE OF OPERATION: 09/11/2020 PREOPERATIVE DIAGNOSIS: Left chest wound. POSTOPERATIVE DIAGNOSIS: Left chest wound. PROCEDURE: Incision and drainage and debridement of left chest wound and application of vacuum-assisted closure (VAC) wound dressing. SURGEON: Wilder Pedraza MD MAP PLOTTER: Nel Fraser PA-C ANESTHESIA: General. OPERATIVE FINDINGS: There was a sinus tract of the left chest wall at the site of a previous PleurX catheter. There was no apparent communication with the chest cavity itself. There was granulation tissue and no evidence of active infection. The rest of the findings were unremarkable. PROCEDURE: The patient was placed on the operating table in the supine position and, after the induction of general anesthesia, she was turned to the right lateral decubitus position and positioned appropriately with the aid of a teague bag. The left chest was prepped with Betadine and draped in a sterile fashion and then a timeout was taken. An incision was made then with a scalpel encompassing an ellipse of skin that incorporated both openings in the skin from the previous PleurX catheter that had been removed. Incision was taken down through subcutaneous tissue down to the chest wall and the tissue sent for pathological examination. A curette was used to remove all the granulation tissue until active bleeding was achieved. Next, a VAC wound dressing was fashioned into the defect and placed using standard VAC dressing technique. The patient was then aroused from general anesthesia and transferred to the postanesthesia care unit in stable condition awake and alert. ESTIMATED BLOOD LOSS: 5 mL REPLACEMENTS: Crystalloid. DRAINS: None. SPECIMEN: Nonviable soft tissue of the left chest wall to Pathology. I, Wilder Pedraza, was physically present in the operating room from the time the patient was placed on the operating table until she was transferred to the postanesthesia care unit in my accompaniment. MD ALEISHA Montilla/[id number] MTDD
--- NOTE | 2020-09-16 09:32 | PN ---
Physical Exam: SUBJECTIVE: Patient seen and examined this AM. No new complaints. OBJECTIVE: Vital Signs Period Temp Pulse Resp BP Sys/Gonzalez Pulse Ox Last 24 Hr 98.4 F-98.8 F 87-94 18-20 119-126/64-75 85-92 GENERAL: A&Ox3, NAD HEAD: NCAT EYES: PERRL, EOMI ENT: MMM NECK: Supple LUNGS: Diminished breath sounds at the bases HEART: Regular rate and rhythm, S1, S2 without murmur ABDOMEN: Soft, nontender, nondistended, + bowel sounds, no guarding EXTREMITIES: no edema NEUROLOGICAL: Cranial nerves II through XII grossly intact. SKIN: Warm, dry. Laboratory Last Values WBC 9.5 K/mm3 (4.0-10.0) 09/15/20 06:37 RBC 3.54 M/mm3 (3.60-5.2) L 09/15/20 06:37 Hgb 9.4 GM/dL (10.7-15.3) L 09/15/20 06:37 Hct 28.3 % (32.4-45.2) L 09/15/20 06:37 MCV 80.0 fl (80-96) 09/15/20 06:37 MCH 26.5 pg (25.7-33.7) 09/15/20 06:37 MCHC 33.2 g/dl (32.0-36.0) 09/15/20 06:37 RDW 16.8 % (11.6-15.6) H 09/15/20 06:37 Plt Count 255 K/MM3 (134-434) 09/15/20 06:37 MPV 11.0 fl (7.5-11.1) 09/15/20 06:37 Absolute Neuts (auto) 6.0 K/mm3 (1.5-8.0) 09/14/20 05:42 Neutrophils % 78.4 % (42.8-82.8) 09/14/20 05:42 Lymphocytes % 11.1 % (8-40) 09/14/20 05:42 Monocytes % 9.1 % (3.8-10.2) 09/14/20 05:42 Eosinophils % 0.7 % (0-4.5) 09/14/20 05:42 Basophils % 0.7 % (0-2.0) 09/14/20 05:42 Nucleated RBC % 0 % (0-0) 09/14/20 05:42 Haptoglobin 550 mg/dL (33-346) H 09/05/20 14:22 Sodium 139 mmol/L (136-145) 09/15/20 06:37 Potassium 3.7 mmol/L (3.5-5.1) 09/15/20 06:37 Chloride 104 mmol/L (98-107) 09/15/20 06:37 Carbon Dioxide 27 mmol/L (21-32) 09/15/20 06:37 Anion Gap 8 MMOL/L (8-16) 09/15/20 06:37 BUN 32.0 mg/dL (7-18) H 09/15/20 06:37 Creatinine 1.6 mg/dL (0.55-1.3) H 09/15/20 06:37 Est GFR (CKD-EPI)AfAm 40.17 09/15/20 06:37 Est GFR (CKD-EPI)NonAf 34.66 09/15/20 06:37 Random Glucose 116 mg/dL (74-106) H 09/15/20 06:37 Calcium 8.0 mg/dL (8.5-10.1) L 09/15/20 06:37 Phosphorus 3.1 mg/dL (2.5-4.9) 09/15/20 06:37 Magnesium 1.9 mg/dL (1.8-2.4) 09/15/20 06:37 Total Bilirubin 0.3 mg/dL (0.2-1) 09/08/20 07:15 AST 12 U/L (15-37) L 09/08/20 07:15 ALT 8 U/L (13-61) L 09/08/20 07:15 Alkaline Phosphatase 80 U/L (45-117) 09/08/20 07:15 LD Total 233 U/L (84-246) 09/05/20 14:22 Creatine Kinase 115 U/L (26-192) 09/05/20 14:22 Total Protein 5.1 g/dl (6.4-8.2) L 09/08/20 07:15 Albumin 1.9 g/dl (3.4-5.0) L 09/08/20 07:15 Urine Color Yellow 09/05/20 19:15 Urine Appearance Cloudy 09/05/20 19:15 Urine pH 5.0 (5.0-8.0) 09/05/20 19:15 Ur Specific Ideal 1.013 (1.010-1.035) 09/05/20 19:15 Urine Protein Trace (NEGATIVE) 09/05/20 19:15 Urine Glucose (UA) Negative (NEGATIVE) 09/05/20 19:15 Urine Ketones Negative (NEGATIVE) 09/05/20 19:15 Urine Blood Trace (NEGATIVE) 09/05/20 19:15 Urine Nitrite Negative (NEGATIVE) 09/05/20 19:15 Urine Bilirubin Negative (NEGATIVE) 09/05/20 19:15 Urine Urobilinogen 0.2 mg/dL (0.2-1.0) 09/05/20 19:15 Ur Leukocyte Esterase Negative (NEGATIVE) 09/05/20 19:15 Urine WBC (Auto) 24 /uL (0-25.8) 09/05/20 19:15 Urine Casts (Auto) 3 /uL (0-3.1) 09/05/20 19:15 U Epithel Cells (Auto) 15 /uL (0-25.1) 09/05/20 19:15 Urine Bacteria (Auto) 6 /uL (0-1359) 09/05/20 19:15 Urine Eosinophils None seen % (.) 09/05/20 19:15 Ur Random Creatinine 77.0 mg/dL (30-150) 09/05/20 19:15 U Random Total Protein 84.3 mg/dL (0-11.9) H 09/05/20 19:15 Ur Random Sodium 99 MMOL/L (40-220) 09/05/20 19:15 Ur Random Urea Nitrogn 485 mg/dL (350-1000) 09/05/20 19:15 Random Vancomycin 13.2 ug/ml (5-26) 09/09/20 06:30 KLAUDIA Screen Negative (.) 09/05/20 14:22 c-ANCA <1:20 titer (Neg:<1:20) 09/05/20 14:22 Proteinase 3 (PR3) <3.5 U/mL (0.0-3.5) 09/05/20 14:22 p-ANCA <1:20 titer (Neg:<1:20) 09/05/20 14:22 Atypical p-ANCA <1:20 titer (Neg:<1:20) 09/05/20 14:22 Myeloperoxidase Ab <9.0 U/mL (0.0-9.0) 09/05/20 14:22 Tot Complement (CH50) > 60 U/mL (>41) 09/05/20 14:22 Syphilis Serology Reactive (NONREACTIVE) A* 09/05/20 20:49 RPR Titer Reactive 1:1 (NONREACTIVE) H 09/05/20 20:49 COVID-19 (ANGELIQUE) Not detected (Not Detected) 09/06/20 11:30 Hep A IgM Ab Confirm Negative (Negative) 09/05/20 20:49 Hep Bs Antigen Negative (Negative) 09/05/20 20:49 Hep B Core IgM Ab Negative (Negative) 09/05/20 20:49 Hepatitis C Ab (EIA) <0.1 s/co ratio (0.0-0.9) 09/05/20 20:49 SARS-CoV-2 (PCR) Negative (Negative) 09/14/20 02:40 Blood Type A POSITIVE 09/11/20 10:02 Antibody Screen Negative 09/11/20 10:02 Crossmatch See Detail 09/11/20 10:02 ASSESSMENT/PLAN: 59 y/o F PMHx NSCLC (on Tagrisso) complicated by malignant Rt pleural effusion, HTN, HLD, GERD. Recently discharged from [facility] for Sepsis requiring chest tube placement having completed a course of ABx, presented for IV Hydration and admitted for persistent YOUSUF despite hydration. IV Hydration has since been stopped due to development of pleural effusions on imaging. #YOUSUF, improving -Continue IV Hydration #NSCLC -Continue Osimertinib -Vac placed by general surgery -ABx as per ID -Thoracic sx follow up -DVT PPx #Anemia -Transfuse to keep Hgb > 7.0 Visit type - Emergency Visit Emergency Visit: Yes ED Registration Date: 09/05/20 Care time: The patient presented to the Emergency Department on the above date and was hospitalized for further evaluation of their emergent condition. - New Patient This patient is new to me today: No - Critical Care Critical Care patient: No - Discharge Referral Referred to [facility] Med P.C.: No ATTENDING PHYSICIAN STATEMENT I saw and evaluated the patient. I reviewed the resident's note and discussed the case with the resident. I agree with the resident's findings and plan as documented. SUBJECTIVE: OBJECTIVE: ASSESSMENT AND PLAN:
--- NOTE | 2020-09-16 10:02 | PN ---
Progress Note, Physician History of Present Illness: patient stable no new issues - Current Medication List Current Medications: Active Medications Acetaminophen (Tylenol -) 500 mg PO Q6H PRN PRN Reason: PAIN LEVEL 1-5 Last Admin: 09/12/20 21:28 Dose: 500 mg Documented by: Aspirin (Asa -) 81 mg PO DAILY [facility] Last Admin: 09/15/20 11:27 Dose: 81 mg Documented by: Atorvastatin Calcium (Lipitor -) 10 mg PO HS [facility] Last Admin: 09/15/20 21:11 Dose: 10 mg Documented by: Bacitracin (Bacitracin -) 1 applic TP BID [facility] Last Admin: 09/15/20 21:11 Dose: 1 applic Documented by: Fentanyl (Sublimaze Injection -) 25 mcg IVPUSH [id number] PRN PRN Reason: PAIN-PACU ORDER X 4 DOSES ONLY Heparin Sodium (Porcine) (Heparin -) 5,000 unit SQ BID [facility] Last Admin: 09/15/20 21:11 Dose: 5,000 unit Documented by: Clindamycin Phosphate (Cleocin 300 Mg Premix Ivpb) 300 mg in 50 mls @ 100 mls/hr IVPB Q8H-IV [facility]; Protocol Last Admin: 09/16/20 01:19 Dose: 100 mls/hr Documented by: Amino Acids (Clinimix -) 1,000 mls @ 42 mls/hr IV Q24H [facility] Last Admin: 09/15/20 20:44 Dose: 42 mls/hr Documented by: Lactobacillus Acidophilus (Bacid -) 1 tab PO DAILY [facility] Last Admin: 09/15/20 11:27 Dose: 1 tab Documented by: Metoprolol Succinate (Toprol Xl -) 50 mg PO DAILY [facility] Last Admin: 09/15/20 11:27 Dose: 50 mg Documented by: Nf- Osimertinib 80mg (Tablets) 1 each PO DAILY [facility] Last Admin: 09/15/20 17:22 Dose: 1 each Documented by: Ondansetron HCl (Zofran Odt -) 4 mg SL Q8H PRN PRN Reason: NAUSEA Last Admin: 09/15/20 21:11 Dose: 4 mg Documented by: Oxycodone HCl (Roxicodone -) 5 mg PO Q6H PRN PRN Reason: PAIN LEVEL 6-10 Pantoprazole Sodium (Protonix Iv) 40 mg IVPB DAILY [facility] Last Admin: 09/15/20 11:27 Dose: 40 mg Documented by: Sodium Bicarbonate (Sodium Bicarbonate -) 650 mg PO DAILY [facility] Last Admin: 09/15/20 11:27 Dose: 650 mg Documented by: - Objective Vital Signs: Vital Signs Temperature 98.8 F 09/16/20 06:00 Pulse Rate 94 H 09/16/20 06:00 Respiratory Rate 18 09/16/20 06:00 Blood Pressure 122/75 09/16/20 06:00 O2 Sat by Pulse Oximetry (%) 92 L 09/16/20 06:00 Constitutional: Yes: No Distress, Calm Cardiovascular: Yes: S1, S2 Respiratory: Yes: Regular, Mechanically Ventilated Gastrointestinal: Yes: Normal Bowel Sounds, Soft Musculoskeletal: Yes: WNL Extremities: Yes: WNL Neurological: Yes: Alert, Oriented Psychiatric: Yes: Alert, Oriented Labs: CBC, BMP 09/15/20 06:37 09/15/20 06:37 Assessment/Plan Problem List - Problems (1) Lung cancer Code(s): C34.90 - MALIGNANT NEOPLASM OF UNSP PART OF UNSP BRONCHUS OR LUNG Qualifiers: Laterality: unspecified laterality Lung location: unspecified part of lung Qualified Code(s): C34.90 - Malignant neoplasm of unspecified part of unspecified bronchus or lung (2) Malignant pleural effusion Code(s): J91.0 - MALIGNANT PLEURAL EFFUSION (4) Trapped lung Code(s): J98.19 - OTHER PULMONARY COLLAPSE (5) Soft tissue infection Code(s): L08.9 - LOCAL INFECTION OF THE SKIN AND SUBCUTANEOUS TISSUE, UNSP Assessment/Plan Wound infection/ cellulitis Recent Empyema s/p chest tube YOUSUF Lung CA with mets Trapped Lung plan continue current mgmt thoracic surgery input i am going to stop abx rest as per the team
[2020-09-16] MEDS: PANTOPRAZOLE SODIUM 40 MG VIAL IVPB SCH (10:43)
[2020-09-16] MEDS: ASPIRIN 81 MG CHEWABLE TABLETS PO SCH (10:44)
[2020-09-16] MEDS: SODIUM BICARBONATE 650 MG TABLET PO SCH (10:44)
[2020-09-16] MEDS: BACITRACIN 15 GM TUBE TOPICAL OINTMENT TP SCH ×2 (10:44→22:38)
[2020-09-16] MEDS: LACTOBACILLUS ACIDOPHILUS 1 TABLET PO SCH (10:44)
[2020-09-16] MEDS: HEPARIN NA (PORCINE) 5,000 UNITS/ML 1ML VIAL SQ SCH ×2 (10:44→22:38)
--- NOTE | 2020-09-16 10:58 | PN ---
Progress Note (short form) - Note Progress Note: PULMONARY No fevers recorded. Denies shortness of breath. Vital Signs Period Temp Pulse Resp BP Sys/Gonzalez Pulse Ox Last 24 Hr 98.4 F-98.8 F 87-94 18-20 119-126/64-75 85-96 Gen: NAD at rest Heart: RRR Lung: decreased breath sounds at the bases Abd: soft, nontender Ext: no edema CBC, BMP 09/15/20 06:37 09/15/20 06:37 Active Medications Acetaminophen (Tylenol -) 500 mg PO Q6H PRN PRN Reason: PAIN LEVEL 1-5 Last Admin: 09/12/20 21:28 Dose: 500 mg Documented by: Aspirin (Asa -) 81 mg PO DAILY [facility] Last Admin: 09/16/20 10:44 Dose: 81 mg Documented by: Atorvastatin Calcium (Lipitor -) 10 mg PO HS [facility] Last Admin: 09/15/20 21:11 Dose: 10 mg Documented by: Bacitracin (Bacitracin -) 1 applic TP BID [facility] Last Admin: 09/16/20 10:44 Dose: Not Given Documented by: Fentanyl (Sublimaze Injection -) 25 mcg IVPUSH [id number] PRN PRN Reason: PAIN-PACU ORDER X 4 DOSES ONLY Heparin Sodium (Porcine) (Heparin -) 5,000 unit SQ BID [facility] Last Admin: 09/16/20 10:44 Dose: 5,000 unit Documented by: Amino Acids (Clinimix -) 1,000 mls @ 42 mls/hr IV Q24H [facility] Last Admin: 09/15/20 20:44 Dose: 42 mls/hr Documented by: Lactobacillus Acidophilus (Bacid -) 1 tab PO DAILY [facility] Last Admin: 09/16/20 10:44 Dose: 1 tab Documented by: Metoprolol Succinate (Toprol Xl -) 50 mg PO DAILY [facility] Last Admin: 09/16/20 10:44 Dose: 50 mg Documented by: Nf- Osimertinib 80mg (Tablets) 1 each PO DAILY [facility] Last Admin: 09/15/20 17:22 Dose: 1 each Documented by: Ondansetron HCl (Zofran Odt -) 4 mg SL Q8H PRN PRN Reason: NAUSEA Last Admin: 09/15/20 21:11 Dose: 4 mg Documented by: Oxycodone HCl (Roxicodone -) 5 mg PO Q6H PRN PRN Reason: PAIN LEVEL 6-10 Pantoprazole Sodium (Protonix Iv) 40 mg IVPB DAILY [facility] Last Admin: 09/16/20 10:43 Dose: Not Given Documented by: Sodium Bicarbonate (Sodium Bicarbonate -) 650 mg PO DAILY [facility] Last Admin: 09/16/20 10:44 Dose: 650 mg Documented by: A/P Left Chest Wall Abscess Lung Cancer Malignant Effusion Acute Kidney Injury HTN Hyperlipidemia - continue antibiotics - wound care - PO as tolerated - DVT prophylaxis
[2020-09-16 11:13] LABS: BASO % 0.2 % (0-2.0); EOS % 1.2 % (0-4.5); HEMATOCRIT 28.2 % (32.4-45.2); HEMOGLOBIN 9.3 GM/dL (10.7-15.3); LYMPH % 6.8 % (8-40); MCH 26.2 pg (25.7-33.7); MCHC 32.9 g/dl (32.0-36.0); MEAN CELL VOLUME 79.6 fl (80-96); MEAN PLT VOLUME 10.9 fl (7.5-11.1); MONO % 7.4 % (3.8-10.2); NEUT % 84.4 % (42.8-82.8); PLATELET COUNT 246 K/MM3 (134-434); RBC 3.54 M/mm3 (3.60-5.2); RDW 16.8 % (11.6-15.6); WHITE BLOOD COUNT 10.3 K/mm3 (4.0-10.0)
[2020-09-16 11:32] LABS: POTASSIUM 3.7 mmol/L (3.5-5.1)
[2020-09-16 11:34] LABS: CALCIUM 8.5 mg/dL (8.5-10.1)
[2020-09-16 11:35] LABS: ALBUMIN 2.1 g/dl (3.4-5.0); BLOOD UREA NITROGEN 37.6 mg/dL (7-18)
[2020-09-16 11:37] LABS: MAGNESIUM 1.7 mg/dL (1.8-2.4)
[2020-09-16 11:38] LABS: CREATININE 1.5 mg/dL (0.55-1.3); PHOSPHOROUS 3.2 mg/dL (2.5-4.9)
[2020-09-16 11:39] LABS: BILIRUBIN,TOTAL 0.5 mg/dL (0.2-1); TOT PROT 5.4 g/dl (6.4-8.2)
--- NOTE | 2020-09-16 13:01 | PN ---
Progress Note, Physician History of Present Illness: Seen and examined at the bedside awake and alert denies any fever, chills, shortness of breath, cough or chest pain making urine appetite is good no N/V/D today - Current Medication List Current Medications: Active Medications Acetaminophen (Tylenol -) 500 mg PO Q6H PRN PRN Reason: PAIN LEVEL 1-5 Last Admin: 09/12/20 21:28 Dose: 500 mg Documented by: Aspirin (Asa -) 81 mg PO DAILY [facility] Last Admin: 09/16/20 10:44 Dose: 81 mg Documented by: Atorvastatin Calcium (Lipitor -) 10 mg PO HS [facility] Last Admin: 09/15/20 21:11 Dose: 10 mg Documented by: Bacitracin (Bacitracin -) 1 applic TP BID [facility] Last Admin: 09/16/20 10:44 Dose: Not Given Documented by: Fentanyl (Sublimaze Injection -) 25 mcg IVPUSH [id number] PRN PRN Reason: PAIN-PACU ORDER X 4 DOSES ONLY Heparin Sodium (Porcine) (Heparin -) 5,000 unit SQ BID [facility] Last Admin: 09/16/20 10:44 Dose: 5,000 unit Documented by: Amino Acids (Clinimix -) 1,000 mls @ 42 mls/hr IV Q24H [facility] Last Admin: 09/15/20 20:44 Dose: 42 mls/hr Documented by: Lactobacillus Acidophilus (Bacid -) 1 tab PO DAILY [facility] Last Admin: 09/16/20 10:44 Dose: 1 tab Documented by: Magnesium Chloride (Slow-Mag -) 64 mg PO DAILY [facility] Metoprolol Succinate (Toprol Xl -) 50 mg PO DAILY [facility] Last Admin: 09/16/20 10:44 Dose: 50 mg Documented by: Nf- Osimertinib 80mg (Tablets) 1 each PO DAILY [facility] Last Admin: 09/15/20 17:22 Dose: 1 each Documented by: Ondansetron HCl (Zofran Odt -) 4 mg SL Q8H PRN PRN Reason: NAUSEA Last Admin: 09/15/20 21:11 Dose: 4 mg Documented by: Oxycodone HCl (Roxicodone -) 5 mg PO Q6H PRN PRN Reason: PAIN LEVEL 6-10 Pantoprazole Sodium (Protonix Iv) 40 mg IVPB DAILY [facility] Last Admin: 09/16/20 10:43 Dose: Not Given Documented by: Sodium Bicarbonate (Sodium Bicarbonate -) 650 mg PO DAILY [facility] Last Admin: 09/16/20 10:44 Dose: 650 mg Documented by: - Objective Vital Signs: Vital Signs Temperature 99 F 09/16/20 11:11 Pulse Rate 106 H 09/16/20 11:11 Respiratory Rate 18 09/16/20 11:11 Blood Pressure 126/79 09/16/20 11:11 O2 Sat by Pulse Oximetry (%) 91 L 09/16/20 11:11 Constitutional: Yes: No Distress Neck: Yes: Supple Cardiovascular: Yes: Regular Rate and Rhythm Respiratory: Yes: Regular Gastrointestinal: Yes: Soft Extremities: No: Cyanosis Edema: No Labs: CBC, BMP 09/16/20 10:15 09/16/20 10:15 Assessment/Plan 59 year old woman with history of lung cancer on chemotherapy, hypertension, hyperlipidemia who presents with abnormal renal function. 1. Acute kidney injury from suspected AIN 2. Lung cancer 3. Sepsis/Pneumonia 4. Hypertension 5. Hyperlipidemia Suspect YOUSUF was from AIN +/- ATN Renal function improved from Cr of 2.7 to 1.5 stable for discharge with outpatient monitoring of renal function FeNa was 2.3% (consistent with tubular injury), KLAUDIA negative, ANCA pending, LDH WNL, Haptolgobin slightly elevated. US showed no obstruction but echogenicity consistent with CKD UA showed 24 WBC, eosinophils negative no peripheral eosinophilia noted. Cultures from this admission are negative s/p debridement of chest wound, VAC in place Antibiotics per ID discharge planning as per primary team. Darryl Vazquez DO
--- NOTE | 2020-09-16 13:59 | PN ---
Teaching Attending Note Name of Resident: Roderick Norman ATTENDING PHYSICIAN STATEMENT I saw and evaluated the patient. I reviewed the resident's note and discussed the case with the resident. I agree with the resident's findings and plan as documented. SUBJECTIVE: No fever or chills. she has no tpain , she feels better. OBJECTIVE: NAD CV: RRR, 3/6 SM at LUSB Lungs: CTAB Ext: No edema or erythema on LEs Skin: L posterior chest wall with a wound vac, skin around it clean and not erythematous . Assessment/Plan: Unfortunate 59 y/o lady with h/o L lung ca, s/p CT removal 08/15/20 , HTN, HLP, L malignant pleural effusion, recent admission to [facility] for an infected chest wall . she presented this time with YOUSUF and was found to have L sided chest wall infection /abscess 1- YOUSUF: improved 2- L chest wall infection with collection 3- Malignant L pleural effusion 4- H/o HTN Plan: - cont wound vac. case was d/w Dr. aragon, to be changed MWF, no other wound care instructions. eval in clinic fro removal of wound vac - again, case was d/w Dr. Barba. labs reviewed with him. will Cont clinda oral ly x 2 weeks - f/u with thoracic after dc - repeat CT of chest in 2 weeks - cont BB - cont osimertinib Dispo: dc to rehab today
[2020-09-16] MEDS: ACETAMINOPHEN 500 MG TABLET (FP) PO PRN (14:01)
[2020-09-16] MEDS ORDERED: PT OWN MED DRAWER 7, Y5N ONE (18:46)
[2020-09-16] MEDS: MAGNESIUM CL 64 MG TABLET.SA PO SCH ×2 (18:57→22:38)
[2020-09-16] MEDS: OSIMERTINIB 80 MG PO SCH (18:58)
--- NOTE | 2020-09-16 19:39 | DS ---
Physical Exam: SUBJECTIVE: Patient seen and examined OBJECTIVE: Vital Signs Period Temp Pulse Resp BP Sys/Gonzalez Pulse Ox Last 24 Hr 98.4 F-99 F 87-106 18-20 122-135/69-89 91-97 PHYSICAL EXAM GENERAL: The patient is awake, alert, and fully oriented, in no acute distress. HEAD: Normal with no signs of trauma. EYES: PERRL, extraocular movements intact, sclera anicteric, conjunctiva clear. ENT: Ears normal, nares patent, oropharynx clear without exudates, moist mucous membranes. NECK: Trachea midline, full range of motion, supple. LUNGS: Breath sounds equal, clear to auscultation bilaterally, no wheezes, no crackles, no accessory muscle use. HEART: Regular rate and rhythm, S1, S2 without murmur, rub or gallop. ABDOMEN: Soft, nontender, nondistended, normoactive bowel sounds, no guarding, no rebound, no hepatosplenomegaly, no masses. EXTREMITIES: 2+ pulses, warm, well-perfused, no edema. NEUROLOGICAL: Cranial nerves II through XII grossly intact. Normal speech, gait not observed. PSYCH: Normal mood, normal affect. SKIN: Warm, dry, normal turgor, no rashes or lesions noted. LABS Laboratory Results - last 24 hr 09/16/20 09/16/20 10:15 10:15 WBC 10.3 H RBC 3.54 L Hgb 9.3 L Hct 28.2 L MCV 79.6 L MCH 26.2 MCHC 32.9 RDW 16.8 H Plt Count 246 MPV 10.9 Absolute Neuts (auto) 8.7 H Neutrophils % 84.4 H Lymphocytes % 6.8 L D Monocytes % 7.4 Eosinophils % 1.2 Basophils % 0.2 Nucleated RBC % 0 Sodium 138 Potassium 3.7 Chloride 102 Carbon Dioxide 27 Anion Gap 9 BUN 37.6 H Creatinine 1.5 H Est GFR (CKD-EPI)AfAm 43.43 Est GFR (CKD-EPI)NonAf 37.48 Random Glucose 92 Calcium 8.5 Phosphorus 3.2 Magnesium 1.7 L Total Bilirubin 0.5 AST 23 ALT 19 Alkaline Phosphatase 108 Total Protein 5.4 L Albumin 2.1 L HOSPITAL COURSE: Date of Admission:09/05/20 Date of Discharge: 09/16/20 Discharge Summary Reason For Visit: DEHYDRATION Current Active Problems Chest wall abscess (Acute) Malignant pleural effusion (Chronic) Condition: Improved - Instructions Diet, Activity, Other Instructions: YOUR VISIT You came to the hospital because you were experiencing decreased kidney function, diarrhea, and drainage from you back. You were admitted to the hospital for a condition called "Acute Kidney Injury" and abscess formation in left sided chest wall Additional image findings You were found to have a few non-obstructing kidney stones in your both of your kidneys. You also have a 1.2 x 0.8 cm cyst found on your left kidney that will need to be monitored by your primary doctor or nephrology. MEDICATION CHANGES -Please continue to take Clindamycin 300mg by mouth every 6 hours for the next 2 weeks. Your next dose is tonight. -Please continue to take Osirmetinib 80mg by mouth daily. -Do NOT take your omeprazole. You may take Famotidine 10mg by mouth daily for your acid. -Please continue to take Sodium bicarbonate 650mg by mouth daily. -Please continue to take ondansetron 4mg under your tongue every 8 hours as needed for your nasuea -Please continue to take your home medications as prescribed. ADDITIONAL CARE Please make an appointment to see a primary care provider 2 weeks from today. Since you do not have one, you can call to schedule an appointment at the [facility] residents' clinic, located at [address] [place] [address]. If you would like to continue seeing Dr. Wilfredo Roa, please ask for a Wednesday morning appointment. Please make an appointment to see your qc chemist/oncologist, Dr. Guallpa in 2 week. Please make an appointment to see your thoracic surgeon, Dr. Rubi, in 1 week. Please make an appointment to see your guest attendant Dr. Damon in 2 week. Please make an appointment to see your electrician constructor supervisor Dr. Vazquez in 3 week. You need a CT scan of the chest in 2 weeks. Your guest attendant or dr. Rubi can order that. please follow up with Dr. Pedraza in 1 week , to evaluate wound vac ( very important ) ADDITIONAL INFORMATION -You are being discharged to a rehabilitation center. -Please call 911 or come directly to the emergency department if you experience recurrence of the symptoms that brought you to the hospital, unusual headache, vision change, shortness of breath, chest pain, numbness, tingling, loss of alertness/awareness, loss of function, unusual bleeding or any alarming symptoms. or if you have any redness or pain or discharge from your wound -Wound Vac care instructions. As per surgery, your wound vac will be address every Wednesday, Wednesday and Wednesday. Your facility will address its care. keep site dry . You need CBC, BMP in 1 week . needs to be performed in the rehab Dr. Pedraza Discharge Instructions Dear LATOYA BO, Post Operative Instructions Physical activity Resume your normal everyday activity as tolerated no heavy lifting or exercise until seen by your surgeon. You may walk unlimited amounts of and climb stairs. You may resume driving the car when you feel safe and comfortable behind the wheel. Diet There are no dietary restrictions. Eat healthy, high-fiber foods. Drink 6 to 8 glasses of liquid each day. This will assist in keeping your bowels are regular. Call Dr. Pedraza for any of the following: Severe pain not relieved by medication Fever of 101 or higher Excessive bleeding or drainage on dressing Inability to urinate Call the office at [phone] for a post operative appointment in 7 - 10 days. Referrals: Lalit Nur MD [Staff Physician] - 2 Weeks Wilder Pedraza MD [Staff Physician] - 1 Week Selin Guallpa MD [Staff Physician] - 2 Weeks Jesse Rubi MD [Staff Physician] - 1 Week Cameron Damon MD [Staff Physician] - 2 Weeks Darryl Vazquez MD [Staff Physician] - 3 Weeks Disposition: [facility] FACILITY - Home Medications Comprehensive Discharge Medication List: Ambulatory Orders Atorvastatin Ca [Lipitor] 10 mg PO HS tablet 04/09/14 Cholecalciferol (Vitamin D3) [Vitamin D3 -] 2,000 units PO DAILY 06/14/17 Aspirin 81 mg PO DAILY 02/21/18 Metoprolol Succinate 50 mg PO DAILY 06/10/20 Acetaminophen [Tylenol] 500 mg PO QID PRN 08/17/20 Ascorbate Calcium [Vitamin C] 500 mg PO BID 08/17/20 Clindamycin [Cleocin -] 300 mg PO Q6HPO #112 capsule 09/14/20 Famotidine [Acid Portable Power Tool Repairer] 10 mg PO DAILY #30 tablet 09/14/20 Ondansetron [Zofran *Odt*] 4 mg SL Q8H PRN tab.rapdis 09/14/20 Osimertinib Mesylate [Tagrisso] 80 mg PO DAILY #90 tablet 09/14/20 Sodium Bicarbonate - 650 mg PO DAILY #30 tablet 09/14/20 Omeprazole 20 mg PO DAILY 09/16/20 - Discharge Referral Referred to [facility] No ATTENDING PHYSICIAN STATEMENT I saw and evaluated the patient. I reviewed the resident's note and discussed the case with the resident. I agree with the resident's findings and plan as documented. SUBJECTIVE: OBJECTIVE: ASSESSMENT AND PLAN:
[2020-09-16] MEDS ORDERED: SODIUM CHLORIDE 1,000 ML IV SCH (21:30)
[2020-09-16] MEDS: ATORVASTATIN CA 10 MG TABLET (FP) PO SCH (22:39)
[2020-09-17] MEDS ORDERED: SODIUM CHLORIDE 1,000 ML IV STA (06:33)
--- NOTE | 2020-09-17 07:54 | PN.HO ---
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 chest wall fistula -- s/p wound vac d/c planning ongoing to rehab facility
[2020-09-17] MEDS: ASPIRIN 81 MG CHEWABLE TABLETS PO SCH (09:42)
[2020-09-17] MEDS: MAGNESIUM CL 64 MG TABLET.SA PO SCH (09:42)
[2020-09-17] MEDS: PANTOPRAZOLE SODIUM 40 MG VIAL IVPB SCH (09:42)
[2020-09-17] MEDS: LACTOBACILLUS ACIDOPHILUS 1 TABLET PO SCH (09:42)
[2020-09-17] MEDS: HEPARIN NA (PORCINE) 5,000 UNITS/ML 1ML VIAL SQ SCH (09:42)
[2020-09-17] MEDS: SODIUM BICARBONATE 650 MG TABLET PO SCH (09:42)
[2020-09-17] MEDS: BACITRACIN 15 GM TUBE TOPICAL OINTMENT TP SCH (09:43)
[2020-09-17] MEDS: OSIMERTINIB 80 MG PO SCH (09:43)
--- NOTE | 2020-09-17 10:31 | PN ---
Physical Exam: SUBJECTIVE: Patient seen and examined this AM. OBJECTIVE: Vital Signs Period Temp Pulse Resp BP Sys/Gonzalez Pulse Ox Last 24 Hr 98.4 F-99 F 92-106 18-20 116-136/71-89 91-97 GENERAL: A&Ox3, NAD HEAD: NCAT EYES: PERRL, EOMI ENT: MMM NECK: Supple LUNGS: Diminished breath sounds at the bases HEART: Regular rate and rhythm, S1, S2 without murmur ABDOMEN: Soft, nontender, nondistended, + bowel sounds, no guarding EXTREMITIES: no edema NEUROLOGICAL: Cranial nerves II through XII grossly intact. SKIN: Warm, dry. Laboratory Last Values WBC 10.3 K/mm3 (4.0-10.0) H 09/16/20 10:15 RBC 3.54 M/mm3 (3.60-5.2) L 09/16/20 10:15 Hgb 9.3 GM/dL (10.7-15.3) L 09/16/20 10:15 Hct 28.2 % (32.4-45.2) L 09/16/20 10:15 MCV 79.6 fl (80-96) L 09/16/20 10:15 MCH 26.2 pg (25.7-33.7) 09/16/20 10:15 MCHC 32.9 g/dl (32.0-36.0) 09/16/20 10:15 RDW 16.8 % (11.6-15.6) H 09/16/20 10:15 Plt Count 246 K/MM3 (134-434) 09/16/20 10:15 MPV 10.9 fl (7.5-11.1) 09/16/20 10:15 Absolute Neuts (auto) 8.7 K/mm3 (1.5-8.0) H 09/16/20 10:15 Neutrophils % 84.4 % (42.8-82.8) H 09/16/20 10:15 Lymphocytes % 6.8 % (8-40) L D 09/16/20 10:15 Monocytes % 7.4 % (3.8-10.2) 09/16/20 10:15 Eosinophils % 1.2 % (0-4.5) 09/16/20 10:15 Basophils % 0.2 % (0-2.0) 09/16/20 10:15 Nucleated RBC % 0 % (0-0) 09/16/20 10:15 Haptoglobin 550 mg/dL (33-346) H 09/05/20 14:22 Sodium 138 mmol/L (136-145) 09/16/20 10:15 Potassium 3.7 mmol/L (3.5-5.1) 09/16/20 10:15 Chloride 102 mmol/L (98-107) 09/16/20 10:15 Carbon Dioxide 27 mmol/L (21-32) 09/16/20 10:15 Anion Gap 9 MMOL/L (8-16) 09/16/20 10:15 BUN 37.6 mg/dL (7-18) H 09/16/20 10:15 Creatinine 1.5 mg/dL (0.55-1.3) H 09/16/20 10:15 Est GFR (CKD-EPI)AfAm 43.43 09/16/20 10:15 Est GFR (CKD-EPI)NonAf 37.48 09/16/20 10:15 Random Glucose 92 mg/dL (74-106) 09/16/20 10:15 Calcium 8.5 mg/dL (8.5-10.1) 09/16/20 10:15 Phosphorus 3.2 mg/dL (2.5-4.9) 09/16/20 10:15 Magnesium 1.7 mg/dL (1.8-2.4) L 09/16/20 10:15 Total Bilirubin 0.5 mg/dL (0.2-1) 09/16/20 10:15 AST 23 U/L (15-37) 09/16/20 10:15 ALT 19 U/L (13-61) 09/16/20 10:15 Alkaline Phosphatase 108 U/L (45-117) 09/16/20 10:15 LD Total 233 U/L (84-246) 09/05/20 14:22 Creatine Kinase 115 U/L (26-192) 09/05/20 14:22 Total Protein 5.4 g/dl (6.4-8.2) L 09/16/20 10:15 Albumin 2.1 g/dl (3.4-5.0) L 09/16/20 10:15 Urine Color Yellow 09/05/20 19:15 Urine Appearance Cloudy 09/05/20 19:15 Urine pH 5.0 (5.0-8.0) 09/05/20 19:15 Ur Specific [place] 1.013 (1.010-1.035) 09/05/20 19:15 Urine Protein Trace (NEGATIVE) 09/05/20 19:15 Urine Glucose (UA) Negative (NEGATIVE) 09/05/20 19:15 Urine Ketones Negative (NEGATIVE) 09/05/20 19:15 Urine Blood Trace (NEGATIVE) 09/05/20 19:15 Urine Nitrite Negative (NEGATIVE) 09/05/20 19:15 Urine Bilirubin Negative (NEGATIVE) 09/05/20 19:15 Urine Urobilinogen 0.2 mg/dL (0.2-1.0) 09/05/20 19:15 Ur Leukocyte Esterase Negative (NEGATIVE) 09/05/20 19:15 Urine WBC (Auto) 24 /uL (0-25.8) 09/05/20 19:15 Urine Casts (Auto) 3 /uL (0-3.1) 09/05/20 19:15 U Epithel Cells (Auto) 15 /uL (0-25.1) 09/05/20 19:15 Urine Bacteria (Auto) 6 /uL (0-1359) 09/05/20 19:15 Urine Eosinophils None seen % (.) 09/05/20 19:15 Ur Random Creatinine 77.0 mg/dL (30-150) 09/05/20 19:15 U Random Total Protein 84.3 mg/dL (0-11.9) H 09/05/20 19:15 Ur Random Sodium 99 MMOL/L (40-220) 09/05/20 19:15 Ur Random Urea Nitrogn 485 mg/dL (350-1000) 09/05/20 19:15 Random Vancomycin 13.2 ug/ml (5-26) 09/09/20 06:30 KLAUDIA Screen Negative (.) 09/05/20 14:22 c-ANCA <1:20 titer (Neg:<1:20) 09/05/20 14:22 Proteinase 3 (PR3) <3.5 U/mL (0.0-3.5) 09/05/20 14:22 p-ANCA <1:20 titer (Neg:<1:20) 09/05/20 14:22 Atypical p-ANCA <1:20 titer (Neg:<1:20) 09/05/20 14:22 Myeloperoxidase Ab <9.0 U/mL (0.0-9.0) 09/05/20 14:22 Tot Complement (CH50) > 60 U/mL (>41) 09/05/20 14:22 Syphilis Serology Reactive (NONREACTIVE) A* 09/05/20 20:49 RPR Titer Reactive 1:1 (NONREACTIVE) H 09/05/20 20:49 COVID-19 (ANGELIQUE) Not detected (Not Detected) 09/06/20 11:30 Hep A IgM Ab Confirm Negative (Negative) 09/05/20 20:49 Hep Bs Antigen Negative (Negative) 09/05/20 20:49 Hep B Core IgM Ab Negative (Negative) 09/05/20 20:49 Hepatitis C Ab (EIA) <0.1 s/co ratio (0.0-0.9) 09/05/20 20:49 SARS-CoV-2 (PCR) Negative (Negative) 09/14/20 02:40 Blood Type A POSITIVE 09/11/20 10:02 Antibody Screen Negative 09/11/20 10:02 Crossmatch See Detail 09/11/20 10:02 ASSESSMENT/PLAN: 59 y/o F PMHx NSCLC (on Tagrisso) complicated by malignant Rt pleural effusion, HTN, HLD, GERD. Recently discharged from [facility] for Sepsis requiring chest tube placement having completed a course of ABx, presented for IV Hydration and admitted for persistent YOUSUF despite hydration. IV Hydration has since been stopped due to development of pleural effusions on imaging. #YOUSUF, improving -Continue IV Hydration #NSCLC -Continue Osimertinib -Vac placed by general surgery -ABx as per ID -Thoracic sx follow up -DVT PPx #Anemia -Transfuse to keep Hgb > 7.0 Visit type - Emergency Visit Emergency Visit: Yes ED Registration Date: 09/05/20 Care time: The patient presented to the Emergency Department on the above date and was hospitalized for further evaluation of their emergent condition. - New Patient This patient is new to me today: No - Critical Care Critical Care patient: No - Discharge Referral Referred to [facility] No ATTENDING PHYSICIAN STATEMENT I saw and evaluated the patient. I reviewed the resident's note and discussed the case with the resident. I agree with the resident's findings and plan as documented. SUBJECTIVE: OBJECTIVE: ASSESSMENT AND PLAN:
--- NOTE | 2020-09-17 11:07 | PN ---
Progress Note, Physician History of Present Illness: pulmonary alert,comfortable,-sob,-cp - Current Medication List Current Medications: Active Medications Acetaminophen (Tylenol -) 500 mg PO Q6H PRN PRN Reason: PAIN LEVEL 1-5 Last Admin: 09/16/20 14:01 Dose: 500 mg Documented by: Aspirin (Asa -) 81 mg PO DAILY [facility] Last Admin: 09/17/20 09:42 Dose: 81 mg Documented by: Atorvastatin Calcium (Lipitor -) 10 mg PO HS [facility] Last Admin: 09/16/20 22:39 Dose: 10 mg Documented by: Bacitracin (Bacitracin -) 1 applic TP BID [facility] Last Admin: 09/17/20 09:43 Dose: Not Given Documented by: Fentanyl (Sublimaze Injection -) 25 mcg IVPUSH [id number] PRN PRN Reason: PAIN-PACU ORDER X 4 DOSES ONLY Heparin Sodium (Porcine) (Heparin -) 5,000 unit SQ BID [facility] Last Admin: 09/17/20 09:42 Dose: 5,000 unit Documented by: Lactobacillus Acidophilus (Bacid -) 1 tab PO DAILY [facility] Last Admin: 09/17/20 09:42 Dose: 1 tab Documented by: Magnesium Chloride (Slow-Mag -) 64 mg PO DAILY [facility] Last Admin: 09/17/20 09:42 Dose: 64 mg Documented by: Metoprolol Succinate (Toprol Xl -) 50 mg PO DAILY [facility] Last Admin: 09/17/20 09:51 Dose: 50 mg Documented by: Nf- Osimertinib 80mg (Tablets) 1 each PO DAILY [facility] Last Admin: 09/17/20 09:43 Dose: 1 each Documented by: Ondansetron HCl (Zofran Odt -) 4 mg SL Q8H PRN PRN Reason: NAUSEA Last Admin: 09/15/20 21:11 Dose: 4 mg Documented by: Oxycodone HCl (Roxicodone -) 5 mg PO Q6H PRN PRN Reason: PAIN LEVEL 6-10 Pantoprazole Sodium (Protonix Iv) 40 mg IVPB DAILY [facility] Last Admin: 09/17/20 09:42 Dose: 40 mg Documented by: Sodium Bicarbonate (Sodium Bicarbonate -) 650 mg PO DAILY [facility] Last Admin: 09/17/20 09:42 Dose: 650 mg Documented by: - Objective Vital Signs: Vital Signs Temperature 98.9 F 09/17/20 05:59 Pulse Rate 92 H 09/17/20 05:59 Respiratory Rate 20 09/17/20 05:59 Blood Pressure 116/71 09/17/20 05:59 O2 Sat by Pulse Oximetry (%) 94 L 09/17/20 05:59 Constitutional: Yes: Calm, Thin Eyes: Yes: WNL HENT: Yes: WNL Neck: Yes: WNL Cardiovascular: Yes: Regular Rate and Rhythm, S1, S2 Respiratory: Yes: CTA Bilaterally Gastrointestinal: Yes: Normal Bowel Sounds, Soft Extremities: Yes: WNL Edema: No Labs: CBC, BMP Assessment/Plan roblem List - Problems (1) Lung cancer Code(s): C34.90 - MALIGNANT NEOPLASM OF UNSP PART OF UNSP BRONCHUS OR LUNG Qualifiers: Laterality: unspecified laterality Lung location: unspecified part of lung Qualified Code(s): C34.90 - Malignant neoplasm of unspecified part of unspecified bronchus or lung (2) Malignant pleural effusion Code(s): J91.0 - MALIGNANT PLEURAL EFFUSION (3) 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
--- NOTE | 2020-09-17 12:13 | PN ---
Progress Note, Physician History of Present Illness: stable no new issues - Current Medication List Current Medications: Active Medications Acetaminophen (Tylenol -) 500 mg PO Q6H PRN PRN Reason: PAIN LEVEL 1-5 Last Admin: 09/16/20 14:01 Dose: 500 mg Documented by: Aspirin (Asa -) 81 mg PO DAILY [facility] Last Admin: 09/17/20 09:42 Dose: 81 mg Documented by: Atorvastatin Calcium (Lipitor -) 10 mg PO HS [facility] Last Admin: 09/16/20 22:39 Dose: 10 mg Documented by: Bacitracin (Bacitracin -) 1 applic TP BID [facility] Last Admin: 09/17/20 09:43 Dose: Not Given Documented by: Fentanyl (Sublimaze Injection -) 25 mcg IVPUSH [id number] PRN PRN Reason: PAIN-PACU ORDER X 4 DOSES ONLY Heparin Sodium (Porcine) (Heparin -) 5,000 unit SQ BID [facility] Last Admin: 09/17/20 09:42 Dose: 5,000 unit Documented by: Lactobacillus Acidophilus (Bacid -) 1 tab PO DAILY [facility] Last Admin: 09/17/20 09:42 Dose: 1 tab Documented by: Magnesium Chloride (Slow-Mag -) 64 mg PO DAILY [facility] Last Admin: 09/17/20 09:42 Dose: 64 mg Documented by: Metoprolol Succinate (Toprol Xl -) 50 mg PO DAILY [facility] Last Admin: 09/17/20 09:51 Dose: 50 mg Documented by: Nf- Osimertinib 80mg (Tablets) 1 each PO DAILY [facility] Last Admin: 09/17/20 09:43 Dose: 1 each Documented by: Ondansetron HCl (Zofran Odt -) 4 mg SL Q8H PRN PRN Reason: NAUSEA Last Admin: 09/15/20 21:11 Dose: 4 mg Documented by: Oxycodone HCl (Roxicodone -) 5 mg PO Q6H PRN PRN Reason: PAIN LEVEL 6-10 Pantoprazole Sodium (Protonix Iv) 40 mg IVPB DAILY [facility] Last Admin: 09/17/20 09:42 Dose: 40 mg Documented by: Sodium Bicarbonate (Sodium Bicarbonate -) 650 mg PO DAILY [facility] Last Admin: 09/17/20 09:42 Dose: 650 mg Documented by: - Objective Vital Signs: Vital Signs Temperature 98.9 F 09/17/20 05:59 Pulse Rate 92 H 10/20/20 05:59 Respiratory Rate 20 09/17/20 05:59 Blood Pressure 116/71 09/17/20 05:59 O2 Sat by Pulse Oximetry (%) 94 L 09/17/20 05:59 Constitutional: Yes: No Distress, Calm Cardiovascular: Yes: S1, S2 Respiratory: Yes: Regular, Poor Air Entry Gastrointestinal: Yes: Normal Bowel Sounds, Soft Musculoskeletal: Yes: WNL Extremities: Yes: WNL Neurological: Yes: Alert, Oriented Psychiatric: Yes: Alert, Oriented Labs: CBC, BMP 09/16/20 10:15 Assessment/Plan Problem List - Problems (1) Lung cancer Code(s): C34.90 - MALIGNANT NEOPLASM OF UNSP PART OF UNSP BRONCHUS OR LUNG Qualifiers: Laterality: unspecified laterality Lung location: unspecified part of lung Qualified Code(s): C34.90 - Malignant neoplasm of unspecified part of unspecified bronchus or lung (2) Malignant pleural effusion Code(s): J91.0 - MALIGNANT PLEURAL EFFUSION (4) Trapped lung Code(s): J98.19 - OTHER PULMONARY COLLAPSE (5) Soft tissue infection Code(s): L08.9 - LOCAL INFECTION OF THE SKIN AND SUBCUTANEOUS TISSUE, UNSP Assessment/Plan Wound infection/ cellulitis Recent Empyema s/p chest tube YOUSUF Lung CA with mets Trapped Lung plan continue current mgmt thoracic surgery input
[2020-09-17 12:20] LABS: POTASSIUM 3.7 mmol/L (3.5-5.1)
[2020-09-17 12:22] LABS: BLOOD UREA NITROGEN 31.6 mg/dL (7-18); CALCIUM 7.8 mg/dL (8.5-10.1)
[2020-09-17 12:25] LABS: CREATININE 1.4 mg/dL (0.55-1.3)
[2020-09-17 12:27] LABS: BILIRUBIN,TOTAL 0.3 mg/dL (0.2-1); TOT PROT 4.9 g/dl (6.4-8.2)
--- NOTE | 2020-09-17 12:51 | PN ---
Progress Note, Physician History of Present Illness: Seen and examined at the bedside awake and alert denies any fever, chills, shortness of breath, cough or chest pain making urine appetite is good no N/V/D today - Current Medication List Current Medications: Active Medications Acetaminophen (Tylenol -) 500 mg PO Q6H PRN PRN Reason: PAIN LEVEL 1-5 Last Admin: 09/16/20 14:01 Dose: 500 mg Documented by: Aspirin (Asa -) 81 mg PO DAILY [facility] Last Admin: 09/17/20 09:42 Dose: 81 mg Documented by: Atorvastatin Calcium (Lipitor -) 10 mg PO HS [facility] Last Admin: 09/16/20 22:39 Dose: 10 mg Documented by: Bacitracin (Bacitracin -) 1 applic TP BID [facility] Last Admin: 09/17/20 09:43 Dose: Not Given Documented by: Fentanyl (Sublimaze Injection -) 25 mcg IVPUSH [id number] PRN PRN Reason: PAIN-PACU ORDER X 4 DOSES ONLY Heparin Sodium (Porcine) (Heparin -) 5,000 unit SQ BID [facility] Last Admin: 09/17/20 09:42 Dose: 5,000 unit Documented by: Lactobacillus Acidophilus (Bacid -) 1 tab PO DAILY [facility] Last Admin: 09/17/20 09:42 Dose: 1 tab Documented by: Magnesium Chloride (Slow-Mag -) 64 mg PO DAILY [facility] Last Admin: 09/17/20 09:42 Dose: 64 mg Documented by: Metoprolol Succinate (Toprol Xl -) 50 mg PO DAILY [facility] Last Admin: 09/17/20 09:51 Dose: 50 mg Documented by: Nf- Osimertinib 80mg (Tablets) 1 each PO DAILY [facility] Last Admin: 09/17/20 09:43 Dose: 1 each Documented by: Ondansetron HCl (Zofran Odt -) 4 mg SL Q8H PRN PRN Reason: NAUSEA Last Admin: 09/15/20 21:11 Dose: 4 mg Documented by: Oxycodone HCl (Roxicodone -) 5 mg PO Q6H PRN PRN Reason: PAIN LEVEL 6-10 Pantoprazole Sodium (Protonix Iv) 40 mg IVPB DAILY [facility] Last Admin: 09/17/20 09:42 Dose: 40 mg Documented by: Sodium Bicarbonate (Sodium Bicarbonate -) 650 mg PO DAILY [facility] Last Admin: 09/17/20 09:42 Dose: 650 mg Documented by: - Objective Vital Signs: Vital Signs Temperature 98.9 F 09/17/20 05:59 Pulse Rate 92 H 09/17/20 05:59 Respiratory Rate 20 09/17/20 05:59 Blood Pressure 116/71 09/17/20 05:59 O2 Sat by Pulse Oximetry (%) 94 L 09/17/20 05:59 Constitutional: Yes: No Distress Neck: Yes: Supple Cardiovascular: Yes: Regular Rate and Rhythm Respiratory: Yes: Regular Gastrointestinal: Yes: Soft Extremities: No: Cyanosis Edema: No Labs: CBC, BMP 09/16/20 10:15 09/17/20 11:10 Assessment/Plan 59 year old woman with history of lung cancer on chemotherapy, hypertension, hyperlipidemia who presents with abnormal renal function. 1. Acute kidney injury from suspected AIN 2. Lung cancer 3. Sepsis/Pneumonia 4. Hypertension 5. Hyperlipidemia Suspect YOUSUF was from AIN +/- ATN Renal function improved from Cr of 2.7 to 1.4 stable for discharge with outpatient monitoring of renal function FeNa was 2.3% (consistent with tubular injury), KLAUDIA negative, ANCA pending, LDH WNL, Haptolgobin slightly elevated. US showed no obstruction but echogenicity consistent with CKD UA showed 24 WBC, eosinophils negative no peripheral eosinophilia noted. Cultures from this admission are negative s/p debridement of chest wound, VAC in place Antibiotics per ID discharge planning as per primary team. Darryl Vazquez DO
--- NOTE | 2020-09-17 12:57 | PN ---
Progress Note (short form) - Note Progress Note: Patient seen in follow up. No new complaints. Inpatient Meds reviewed. Current Medications Generic Name Dose Route Start Last Admin Trade Name Freq PRN Reason Stop Dose Admin Acetaminophen 500 mg 09/11/20 14:39 09/16/20 14:01 Tylenol - PO 500 mg Q6H PRN Administration PAIN LEVEL 1-5 Aspirin 81 mg 09/12/20 10:00 09/17/20 09:42 Asa - PO 81 mg DAILY MELBA Administration Atorvastatin Calcium 10 mg 09/11/20 22:00 09/16/20 22:39 Lipitor - PO 10 mg HS MELBA Administration Bacitracin 1 applic 09/11/20 22:00 09/17/20 09:43 Bacitracin - TP Not Given BID MELBA Fentanyl 25 mcg 09/11/20 15:16 Sublimaze Injection - IVPUSH [id number] PRN PAIN-PACU ORDER X 4 DOSES ONLY Heparin Sodium (Porcine) 5,000 unit 09/14/20 22:00 09/17/20 09:42 Heparin - SQ 5,000 unit BID MELBA Administration Lactobacillus Acidophilus 1 tab 09/12/20 10:00 09/17/20 09:42 Bacid - PO 1 tab DAILY MELBA Administration Magnesium Chloride 64 mg 09/16/20 13:00 09/17/20 09:42 Slow-Mag - PO 64 mg DAILY MELBA Administration Metoprolol Succinate 50 mg 09/12/20 10:00 09/17/20 09:51 Toprol Xl - PO 50 mg DAILY MELBA Administration Nf- Osimertinib 80mg 1 each 09/11/20 22:00 09/17/20 09:43 Tablets PO 1 each DAILY MELBA Administration Ondansetron HCl 4 mg 09/11/20 14:39 09/15/20 21:11 Zofran Odt - SL 4 mg Q8H PRN Administration NAUSEA Oxycodone HCl 5 mg 09/14/20 16:14 Roxicodone - PO Q6H PRN PAIN LEVEL 6-10 Pantoprazole Sodium 40 mg 09/14/20 15:30 09/17/20 09:42 Protonix Iv IVPB 40 mg DAILY MELBA Administration Sodium Bicarbonate 650 mg 09/12/20 10:00 09/17/20 09:42 Sodium Bicarbonate - PO 650 mg DAILY MELBA Administration On Examination: General: In no acute distress, sitting at bedside eating lunch. Extremities: No pallor or icterus. Bilateral pedal edema, R > L. Indurated skin lesion dorsum L foot. No palpable lymphadenopathy. CVS: S1, S2, regular, no gallop or murmur. Chest: good air entry bilaterally, clear Abdomen: Non-distended. Neuro: Alert, oriented, non-focal. Labs: CBC, BMP 09/17/20 05:20 09/17/20 05:20 Assessment.
--- NOTE | 2020-09-17 13:00 | PN ---
Teaching Attending Note Name of Resident: Rosetta Lawrence ATTENDING PHYSICIAN STATEMENT I saw and evaluated the patient. I reviewed the resident's note and discussed the case with the resident. I agree with the resident's findings and plan as documented. SUBJECTIVE: No new complaints - eager to leave hospital. 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
--- NOTE | 2020-09-17 13:14 | CON.CARD ---
Consult Consult Specialty:: cardiology Reason for Consultation:: lung CA; on chemotherapy; f/u LVEF, QTc - History of Present Illness Chief Complaint: PT A&Ox3; depressed that she has been home only a few days in the past month, and frustrated not to know when rehabilitation transfer will take place. She wants to be home for her birthday next month. Denies anterior chest pain; + intermittent pain at abscess site. History of Present Illness: Ms. Gibsb is a 59 y/o white woman with h/o left lung ca, s/p chest tube removal 08/15/20 , HTN, HLP, L malignant pleural effusion, anxeity/depression, with recent admission to [facility] for an infected chest wall . she presented this time with YOUSUF and was found to have L sided chest wall infection /abscess. - History Source History Provided By: Patient, Medical Record Limitations to Obtaining History: No Limitations - Past Medical History WEIGHER AND MIXER: Yes: Other (mildly mentally challenged) Cardio/Vascular: Yes: HTN, Hyperlipdemia Pulmonary: Yes: Other (lung cancer/malignant effusion/s/p tube drainage) Gastrointestinal: Yes: GERD - Alcohol/Substance Use Hx Alcohol Use: No History of Substance Use: reports: None - Smoking History Smoking history: Never smoked Have you smoked in the past 12 months: No Home Medications - Allergies Allergies/Adverse Reactions: Allergies Allergy/AdvReac Type Severity Reaction Status Date / Time No Known Allergies Allergy Verified 08/17/20 17:59 - Home Medications Home Medications: Ambulatory Orders Atorvastatin Ca [Lipitor] 10 mg PO HS tablet 04/09/14 Cholecalciferol (Vitamin D3) [Vitamin D3 -] 2,000 units PO DAILY 06/14/17 Aspirin 81 mg PO DAILY 02/21/18 Metoprolol Succinate 50 mg PO DAILY 06/10/20 Acetaminophen [Tylenol] 500 mg PO QID PRN 08/17/20 Ascorbate Calcium [Vitamin C] 500 mg PO BID 08/17/20 Clindamycin [Cleocin -] 300 mg PO Q6HPO #112 capsule 09/14/20 Famotidine [Acid Director Automotive] 10 mg PO DAILY #30 tablet 09/14/20 Ondansetron [Zofran *Odt*] 4 mg SL Q8H PRN tab.rapdis 09/14/20 Osimertinib Mesylate [Tagrisso] 80 mg PO DAILY #90 tablet 09/14/20 Sodium Bicarbonate - 650 mg PO DAILY #30 tablet 09/14/20 Omeprazole 20 mg PO DAILY 09/16/20 Family Medical History Family History: Unremarkable Vital Signs: Vital Signs Temperature 98.2 F 09/17/20 10:00 Pulse Rate 98 H 09/17/20 10:00 Respiratory Rate 18 09/17/20 10:00 Blood Pressure 132/64 09/17/20 10:00 O2 Sat by Pulse Oximetry (%) 96 09/17/20 10:00 - Other Data Labs, Other Data: CBC, BMP 09/16/20 10:15 09/17/20 11:10 Assessment/Plan Ms. Gibbs is a 59 yr old woman with PMHx left lung CA with pleural effusion requiring chest tube; now being treated for abscess (drained; VACs). On Osimertinib; f/u daily EKG to r/o prolongation of QTc. Plan on ECHO for LVEF when able to lie on left side; pt presently has VACs, and ECHO have to wait (can be done as outpatient).
[2020-09-17 15:03] VITALS: BP 121/60; PULSE 91; TEMP 98.8
--- NOTE | 2020-09-17 15:39 | EKG ---
Test Reason : Blood Pressure : / mmHG Vent. Rate : 090 BPM Atrial Rate : 090 BPM P-R Int : 134 ms QRS Dur : 064 ms QT Int : 396 ms P-R-T Axes : 062 033 063 degrees QTc Int : 484 ms NORMAL SINUS RHYTHM NONSPECIFIC T WAVE ABNORMALITY PROLONGED QT ABNORMAL ECG Confirmed by MD RAMAKRISHNA, TYLER ([id number]) on 09/17/2020 3:39:31 PM Referred By: Allyson SCHREIBER Confirmed By:TYLER DURBIN MD
--- NOTE | 2020-09-17 17:13 | DS ---
Physical Exam: SUBJECTIVE: Patient is a 59 year old female with history of hypertension, hyperlipidemia, gastro-esophageal reflux, metastatic non small cell lung cancer for Dehydration and YOUSUF a week after Rx for loculated pleurl effusion. While on admission, she was treated for Dehydration,cutaneous chest wall infection and loculated pleural effusion. Patient is stable. Has no complaint today. No chest pain, no nausea. no vomiting, no diarrhea, no headache or SOB. Patient is eager to leave the hospital. OBJECTIVE: Vital Signs Period Temp Pulse Resp BP Sys/Gonzalez Pulse Ox Last 24 Hr 98.2 F-99 F 91-98 18-20 116-136/60-78 94-97 PHYSICAL EXAM GENERAL: The patient is awake, alert, and fully oriented, in no acute distress. HEAD: Normal with no signs of trauma. EYES: Not pale, anicteric NECK: No neck swelling LUNGS: Breath sounds equal, clear to auscultation bilaterally, no wheezes, no crackles, no accessory muscle use. CHEST WALL: Patient has a wound vac over the left post chest wall with small blood secretion in the fluid storage chamber HEART: Regular rate and rhythm, S1, S2 without murmur, rub or gallop. ABDOMEN: Soft, nontender, nondistended, normoactive bowel sounds EXTREMITIES: warm, well-perfused, 2+ pulses, no edema. NEUROLOGICAL: Muscle strength is 5/5 PSYCH: Normal mood, normal affect. SKIN: Warm, dry, normal turgor LABS Laboratory Results - last 24 hr 09/17/20 11:10 Sodium 143 Potassium 3.7 Chloride 107 Carbon Dioxide 28 Anion Gap 8 BUN 31.6 H Creatinine 1.4 H Est GFR (CKD-EPI)AfAm 47.21 Est GFR (CKD-EPI)NonAf 40.74 Random Glucose 86 Calcium 7.8 L Total Bilirubin 0.3 AST 19 ALT 16 Alkaline Phosphatase 96 Total Protein 4.9 L Albumin 2.0 L HOSPITAL COURSE: Date of Admission:09/05/20 Patient is a 59 year old female with hx HTN, HLD, GERD and metastatic non small cell lung cancer and a recent empyema with loculated pleural effusion. She was admitted due to abnormal kiney function of BUN 49 / Cr 2.6(baseline 0.9 and was later found to have YOUSUF 2/2 to dehydration which prompted the Oncology to request for patients admission. YOUSUF has since resolved and she is stable for discharge to SNF. While on admission,she was seen my heme onc, account resolution expert and nephrologists. Her CXR revealed persistent loculated pleural effusion. Effusion improved after was started. She was also noted to have a cutaneous chest wall(post) abcess. She was treated with doxycyclin, clindamycin, meropenem and zosyn and wound vac was intalled to ensure continous drainage after cardiology clearance. His Kidney sonogram revealed a nonobstructing renal stones. His YOUSUF and dehydration have since improved. Her wound vac has been draining successfully and she was stable enough to be discharged to SNF. Patient has been advised to follow-up with the following physicians: Lalit Nur MD [Staff Physician] - 2 Weeks Wilder Pedraza MD [Staff Physician] - 1 Week Selin Guallpa MD [Staff Physician] - 2 Weeks Jesse Rubi MD [Staff Physician] - 1 Week Cameron Damon MD [Staff Physician] - 2 Weeks Darryl Vazquez MD [Staff Physician] - 3 Weeks She has also been placed on the following meds: Atorvastatin Ca [Lipitor] 10 mg PO HS tablet 04/09/14 Cholecalciferol (Vitamin D3) [Vitamin D3 -] 2,000 units PO DAILY 06/14/17 Aspirin 81 mg PO DAILY 02/21/18 Metoprolol Succinate 50 mg PO DAILY 06/10/20 Acetaminophen [Tylenol] 500 mg PO QID PRN 08/17/20 Ascorbate Calcium [Vitamin C] 500 mg PO BID 08/17/20 Clindamycin [Cleocin -] 300 mg PO Q6HPO #112 capsule 09/14/20 Famotidine [Acid Executive Pilot] 10 mg PO DAILY #30 tablet 09/14/20 Ondansetron [Zofran *Odt*] 4 mg SL Q8H PRN tab.rapdis 09/14/20 Osimertinib Mesylate [Tagrisso] 80 mg PO DAILY #90 tablet 09/14/20 Sodium Bicarbonate - 650 mg PO DAILY #30 tablet 09/14/20 Omeprazole 20 mg PO DAILY 09/16/20 Date of Discharge: 09/17/20 Minutes to complete discharge: 30 Discharge Summary Problems reviewed: Yes Reason For Visit: DEHYDRATION Current Active Problems Chest wall abscess (Acute) Malignant pleural effusion (Chronic) Condition: Improved - Instructions Diet, Activity, Other Instructions: YOUR VISIT You came to the hospital because you were experiencing decreased kidney function, diarrhea, and drainage from you back. You were admitted to the hospital for a condition called "Acute Kidney Injury" and abscess formation in left sided chest wall Additional image findings You were found to have a few non-obstructing kidney stones in your both of your kidneys. You also have a 1.2 x 0.8 cm cyst found on your left kidney that will need to be monitored by your primary doctor or nephrology. MEDICATION CHANGES -Please continue to take Clindamycin 300mg by mouth every 6 hours for the next 2 weeks. Your next dose is tonight. -Please continue to take Osirmetinib 80mg by mouth daily. -Do NOT take your omeprazole. You may take Famotidine 10mg by mouth daily for your acid. -Please continue to take Sodium bicarbonate 650mg by mouth daily. -Please continue to take ondansetron 4mg under your tongue every 8 hours as needed for your nasuea -Please continue to take your home medications as prescribed. ADDITIONAL CARE Please make an appointment to see a primary care provider 2 weeks from today. Since you do not have one, you can call to schedule an appointment at the [facility] residents' clinic, located at [address] [place] [address]. If you would like to continue seeing Dr. Wilfredo Roa, please ask for a Wednesday morning appointment. Please make an appointment to see your support service tech/oncologist, Dr. Guallpa in 2 week. Please make an appointment to see your thoracic surgeon, Dr. Rubi, in 1 week. Please make an appointment to see your account resolution expert Dr. Damon in 2 week. Please make an appointment to see your vibrating screed operator Dr. Vazquez in 3 week. You need a CT scan of the chest in 2 weeks. Your account resolution expert or dr. Rubi can order that. please follow up with Dr. Pedraza in 1 week , to evaluate wound vac ( very important ) ADDITIONAL INFORMATION -You are being discharged to a rehabilitation center. -Please call 911 or come directly to the emergency department if you experience recurrence of the symptoms that brought you to the hospital, unusual headache, vision change, shortness of breath, chest pain, numbness, tingling, loss of alertness/awareness, loss of function, unusual bleeding or any alarming symptoms. or if you have any redness or pain or discharge from your wound -Wound Vac care instructions. As per surgery, your wound vac will be address every Wednesday, Wednesday and Wednesday. Your facility will address its care. keep site dry . You need CBC, BMP in 1 week . needs to be performed in the rehab Dr. Pedraza Discharge Instructions Dear LATOYA BO, Post Operative Instructions Physical activity Resume your normal everyday activity as tolerated no heavy lifting or exercise until seen by your surgeon. You may walk unlimited amounts of and climb stairs. You may resume driving the car when you feel safe and comfortable behind the wheel. Diet There are no dietary restrictions. Eat healthy, high-fiber foods. Drink 6 to 8 glasses of liquid each day. This will assist in keeping your bowels are regular. Call Dr. Pedraza for any of the following: Severe pain not relieved by medication Fever of 101 or higher Excessive bleeding or drainage on dressing Inability to urinate Call the office at [phone] for a post operative appointment in 7 - 10 days. Referrals: Lalit Nur MD [Staff Physician] - 2 Weeks Wilder Pedraza MD [Staff Physician] - 1 Week Selin Guallpa MD [Staff Physician] - 2 Weeks Jesse Rubi MD [Staff Physician] - 1 Week Cameron Damon MD [Staff Physician] - 2 Weeks Darryl Vazquez MD [Staff Physician] - 3 Weeks [facility]position[facility] - Home Medications Comprehensive Discharge Medication List: Ambulatory Orders Atorvastatin Ca [Lipitor] 10 mg PO HS tablet 04/09/14 Cholecalciferol (Vitamin D3) [Vitamin D3 -] 2,000 units PO DAILY 06/14/17 Aspirin 81 mg PO DAILY 02/21/18 Metoprolol Succinate 50 mg PO DAILY 06/10/20 Acetaminophen [Tylenol] 500 mg PO QID PRN 08/17/20 Ascorbate Calcium [Vitamin C] 500 mg PO BID 08/17/20 Clindamycin [Cleocin -] 300 mg PO Q6HPO #112 capsule 09/14/20 Famotidine [Acid Executive Pilot] 10 mg PO DAILY #30 tablet 09/14/20 Ondansetron [Zofran *Odt*] 4 mg SL Q8H PRN tab.rapdis 09/14/20 Osimertinib Mesylate [Tagrisso] 80 mg PO DAILY #90 tablet 09/14/20 Sodium Bicarbonate - 650 mg PO DAILY #30 tablet 09/14/20 Omeprazole 20 mg PO DAILY 09/16/20 This patient is new to me today: No Emergency Visit: Yes ED Registration Date: 09/05/20 Care time: The patient presented to the Emergency Department on the above date and was hospitalized for further evaluation of their emergent condition. Critical Care patient: No - Discharge Referral Referred to [facility] Med [facility] No ATTENDING PHYSICIAN STATEMENT I saw and evaluated the patient. I reviewed the resident's note and discussed the case with the resident. I agree with the resident's findings and plan as documented. SUBJECTIVE: OBJECTIVE: ASSESSMENT AND PLAN:
[2020-09-17] MEDS ORDERED: PT OWN MED DRAWER 7, Y5N ONE (17:42)
--- NOTE | 2020-09-17 17:45 | PN ---
Teaching Attending Note Name of Resident: Roderick Norman ATTENDING PHYSICIAN STATEMENT I saw and evaluated the patient. I reviewed the resident's note and discussed the case with the resident. I agree with the resident's findings and plan as documented. SUBJECTIVE: Patient is feeling better with NAD , wound vac is in place with minimal dr murcia. OBJECTIVE: Vital Signs Temperature 98.8 F 09/17/20 15:02 Pulse Rate 91 H 09/17/20 15:02 Respiratory Rate 18 09/17/20 15:02 Blood Pressure 121/60 09/17/20 15:02 O2 Sat by Pulse Oximetry (%) 95 09/17/20 15:02 PE: per resident's note CBCD WBC 10.3 K/mm3 (4.0-10.0) H 09/16/20 10:15 RBC 3.54 M/mm3 (3.60-5.2) L 09/16/20 10:15 Hgb 9.3 GM/dL (10.7-15.3) L 09/16/20 10:15 Hct 28.2 % (32.4-45.2) L 09/16/20 10:15 MCV 79.6 fl (80-96) L 09/16/20 10:15 MCHC 32.9 g/dl (32.0-36.0) 09/16/20 10:15 RDW 16.8 % (11.6-15.6) H 09/16/20 10:15 Plt Count 246 K/MM3 (134-434) 09/16/20 10:15 MPV 10.9 fl (7.5-11.1) 09/16/20 10:15 CMP Sodium 143 mmol/L (136-145) 09/17/20 11:10 Potassium 3.7 mmol/L (3.5-5.1) 09/17/20 11:10 Chloride 107 mmol/L (98-107) 09/17/20 11:10 Carbon Dioxide 28 mmol/L (21-32) 09/17/20 11:10 Anion Gap 8 MMOL/L (8-16) 09/17/20 11:10 BUN 31.6 mg/dL (7-18) H 09/17/20 11:10 Creatinine 1.4 mg/dL (0.55-1.3) H 09/17/20 11:10 Random Glucose 86 mg/dL (74-106) 09/17/20 11:10 Calcium 7.8 mg/dL (8.5-10.1) L 09/17/20 11:10 Total Bilirubin 0.3 mg/dL (0.2-1) 09/17/20 11:10 AST 19 U/L (15-37) 09/17/20 11:10 ALT 16 U/L (13-61) 09/17/20 11:10 Alkaline Phosphatase 96 U/L (45-117) 09/17/20 11:10 Total Protein 4.9 g/dl (6.4-8.2) L 09/17/20 11:10 Albumin 2.0 g/dl (3.4-5.0) L 09/17/20 11:10 CARDIAC ENZYMES Creatine Kinase 115 U/L (26-192) 09/05/20 14:22 Current Medications Generic Name Dose Route Start Last Admin Trade Name Freq PRN Reason Stop Dose Admin Acetaminophen 500 mg 09/11/20 14:39 09/16/20 14:01 Tylenol - PO 500 mg Q6H PRN Administration PAIN LEVEL 1-5 Aspirin 81 mg 09/12/20 10:00 09/17/20 09:42 Asa - PO 81 mg DAILY MELBA Administration Atorvastatin Calcium 10 mg 09/11/20 22:00 09/16/20 22:39 Lipitor - PO 10 mg HS MELBA Administration Bacitracin 1 applic 09/11/20 22:00 09/17/20 09:43 Bacitracin - TP Not Given BID [facility] Fentanyl 25 mcg 09/11/20 15:16 Sublimaze Injection - IVPUSH [id number] PRN PAIN-PACU ORDER X 4 DOSES ONLY Heparin Sodium (Porcine) 5,000 unit 09/14/20 22:00 09/17/20 09:42 Heparin - SQ 5,000 unit BID MELBA Administration Lactobacillus Acidophilus 1 tab 09/12/20 10:00 09/17/20 09:42 Bacid - PO 1 tab DAILY MELBA Administration Magnesium Chloride 64 mg 09/16/20 13:00 09/17/20 09:42 Slow-Mag - PO 64 mg DAILY MELBA Administration Metoprolol Succinate 50 mg 09/12/20 10:00 09/17/20 09:51 Toprol Xl - PO 50 mg DAILY MELBA Administration Nf- Osimertinib 80mg 1 each 09/11/20 22:00 09/17/20 09:43 Tablets PO 1 each DAILY MELBA Administration Ondansetron HCl 4 mg 09/11/20 14:39 09/15/20 21:11 Zofran Odt - SL 4 mg Q8H PRN Administration NAUSEA Pantoprazole Sodium 40 mg 09/14/20 15:30 09/17/20 09:42 Protonix Iv IVPB 40 mg DAILY MELBA Administration Sodium Bicarbonate 650 mg 09/12/20 10:00 09/17/20 09:42 Sodium Bicarbonate - PO 650 mg DAILY MELBA Administration Home Medications Medication Instructions Recorded Atorvastatin Ca [Lipitor] 10 mg PO HS tablet 04/09/14 Cholecalciferol (Vitamin D3) 2,000 units PO DAILY 06/14/17 [Vitamin D3 -] Aspirin 81 mg PO DAILY 02/21/18 Metoprolol Succinate 50 mg PO DAILY 06/10/20 Acetaminophen [Tylenol] 500 mg PO QID PRN 08/17/20 Ascorbate Calcium [Vitamin C] 500 mg PO BID 08/17/20 Clindamycin [Cleocin -] 300 mg PO Q6HPO #112 capsule 09/14/20 Famotidine [Acid Welding Manager] 10 mg PO DAILY #30 tablet 09/14/20 Ondansetron [Zofran *Odt*] 4 mg SL Q8H PRN tab.rapdis 09/14/20 Osimertinib Mesylate [Tagrisso] 80 mg PO DAILY #90 tablet 09/14/20 Sodium Bicarbonate - 650 mg PO DAILY #30 tablet 09/14/20 Omeprazole 20 mg PO DAILY 09/16/20 Microbiology 09/11/20 13:38 Wound Gram Stain - Final 09/11/20 13:38 Wound Wound Culture - Final NO GROWTH AFTER 48 HOURS INCUBATION 09/06/20 14:20 Drainage (Swab) Gram Stain - Final 09/06/20 14:20 Drainage (Swab) Wound Culture - Final NO GROWTH AFTER 48 HOURS INCUBATION 09/06/20 12:10 Chest Gram Stain - Final 09/06/20 12:10 Chest Wound Culture - Final NO AEROBIC OR ANAEROBIC GROWTH OBTAINED. ASSESSMENT AND PLAN: This patient is a 59yof with PMhx of L lung ca, HTN, HLP, L malignant pleural effusion, recent admission to [facility] for an infected chest wall . she presented this time with YOUSUF and was found to have L sided chest wall infection /abscess # YOUSUF: improved 1.4 today # L chest wall infection with collection s/p I&D with a wound vac # L malignant pleural effusion cont osimertinib #H/x HTN continue BB As per Dr Yu's Note: cont wound vac. and to be changed MWF as per Dr Pedraza , no other wound care instructions. eval in clinic for removal of wound vac, Cont clinda orally x 2 weeks as per ID , f/u with thoracic after dc , repeat CT of chest in 2 weeks Dispo: dc'd to to rehab waiting for authorization
== END 2020-09-17 19:02 | DRG 364 ==
LOC: JONCNONCHE 06:50 → J7W 13:49 → JONCNONCHE 13:49 → J7W 13:49
PROVIDERS: ADMIT Internal Medicine Hematology & Oncology; ATTEND Internal Medicine
PROC: 0J960ZZ Drainage of Chest Subcutaneous Tissue and Fascia, Open Approach (ICD-10-PCS; 2020-09-11)
PROC: 30233N1 Transfusion of Nonautologous Red Blood Cells into Peripheral Vein, Percutaneous Approach (ICD-10-PCS; 2020-09-11)
PROC: 0JB60ZX Excision of Chest Subcutaneous Tissue and Fascia, Open Approach, Diagnostic (ICD-10-PCS; principal; 2020-09-11 12:30)
DX: L02.213 Cutaneous abscess of chest wall (principal); N17.0 Acute kidney failure with tubular necrosis; K21.9 Gastro-esophageal reflux disease without esophagitis; K52.1 Toxic gastroenteritis and colitis; E78.5 Hyperlipidemia, unspecified; J98.11 Atelectasis; A53.9 Syphilis, unspecified; J91.0 Malignant pleural effusion; C34.90 Malignant neoplasm of unspecified part of unspecified bronchus or lung; E86.0 Dehydration; N20.0 Calculus of kidney; L08.9 Local infection of the skin and subcutaneous tissue, unspecified; I10 Essential (primary) hypertension; F41.9 Anxiety disorder, unspecified; D64.9 Anemia, unspecified
CPT/HCPCS: 36415; 36430; 71045-TC-FY; 71046-TC-FY; 71250-TC; 76604; 76775-TC; 76856-TC; 80048; 80053; 80074; 81003; 82550; 82565; 83010; 83520; 83615; 83735; 84100; 84156; 84300; 84540; 85025; 85027; 86038; 86162; 86256; 86593; 86780; 86850; 86900; 86901; 86922; 87070; 87205; 88304-TC; 93005; 93010; 94760; 97116-GP; 97161-GP; C9803; G0480; J1644; P9058; Q0162; U0003

== ENCOUNTER 2022-05-07 04:18 | Day surgery (SDC) | payer OTHER ==
[2022-05-04 14:40] VITALS: BMI 19.6
[2022-05-07] MEDS ORDERED: ceFAZolin SODIUM 1 GM VIAL IVPB ONE (12:47)
[2022-05-07] MEDS ORDERED: GENTAMICIN 80MG PREMIX BAG IVPB ONE (12:47)
[2022-05-07] MEDS ORDERED: GENTAMICIN SO4 80 MG/2 ML VIAL ONE (12:48)
[2022-05-07] MEDS ORDERED: oxyCODONE HCL 5 MG TABLET PO PRN (13:15)
[2022-05-07] MEDS ORDERED: DEXTROSE 5%-0.45% SALINE 1,000 ML IV SCH (13:15)
[2022-05-07 15:05] VITALS: BP 109/43; PULSE 93; TEMP 97.3
== END 2022-05-07 15:10 | disposition home or self-care (01) ==
LOC: JASU-SURG 04:18
PROVIDERS: ATTEND Urology
PROC: 0T778DZ Dilation of Left Ureter with Intraluminal Device, Via Natural or Artificial Opening Endoscopic (ICD-10-PCS; 2022-05-07)
PROC: 0T9780Z Drainage of Left Ureter with Drainage Device, Via Natural or Artificial Opening Endoscopic (ICD-10-PCS; principal; 2022-05-07 11:15)
DX: N20.1 Calculus of ureter (principal)
CPT/HCPCS: 94760

== ENCOUNTER → 2025-07-25 | Day surgery (SDC) | payer OTHER | END | disposition home or self-care (01) | LOC: JRADUS-SUR 11:59 | PROVIDERS: ATTEND Internal Medicine Hematology & Oncology | PROC: 07D63ZX Extraction of Left Axillary Lymphatic, Percutaneous Approach, Diagnostic (ICD-10-PCS; principal; 2025-07-25) | DX: C77.3 Secondary and unspecified malignant neoplasm of axilla and upper limb lymph nodes (principal) | CPT/HCPCS: 19083; 76942-TC; 77065-TC; 87899; 88305-TC; 88341-TC; 88342-TC; A4648 ==